=== PATIENT | female | born 1940 | race Caucasian/White ===

== ENCOUNTER 2017-04-24 09:05 | Outpatient (RCR) | payer MEDICARE | END 2017-04-24 13:01 | disposition home or self-care (01) | LOC: CR 09:05 | PROVIDERS: ATTEND Internal Medicine Cardiovascular Disease | DX: Z48.812 Encounter for surgical aftercare following surgery on the circulatory system (principal); Z95.5 Presence of coronary angioplasty implant and graft | CPT/HCPCS: 93798 ==

== ENCOUNTER → 2019-01-03 | Outpatient (CLI) | payer MEDICARE ==
--- NOTE | 2019-01-03 10:24 | Diagnostic Imaging Report ---
INDICATION: Chronic pain FINDINGS: There is severe glenohumeral arthritic joint space narrowing with [id number] and joint space obliteration inferiorly where there is articular sclerosis, subcortical cyst and osteophytosis of the proximal humerus. There is mild inferior subluxation without dislocation of the humeral head. The AC joint unremarkable. IMPRESSION: Severe arthritic joint space narrowing with [id number] sclerosis, cyst and osteophytosis with mild caudal subluxation. Dictated by: Dictated on workstation # [id number]
== END ==
LOC: RAD FS 09:59
PROVIDERS: ATTEND Nurse Practitioner
DX: S43.031A Inferior subluxation of right humerus, initial encounter (principal); M25.711 Osteophyte, right shoulder; M85.611 Other cyst of bone, right shoulder; M89.9 Disorder of bone, unspecified; M19.011 Primary osteoarthritis, right shoulder
CPT/HCPCS: 73030

== ENCOUNTER 2019-11-01 16:38 | Emergency (ER) | payer MEDICARE ==
[~2019-11-01] VITALS: Ht 157.4 cm; Wt 74.8 kg
[2019-11-01 17:16] LABS: BASOPHILS % (AUTO) 0 % (0-10); EOSINOPHILS # (AUTO) 0.1 10^3/uL (0.0-0.3); EOSINOPHILS % (AUTO) 1 % (0-10); HEMATOCRIT 44 % (35-52); HEMOGLOBIN 14.7 G/DL (11.5-16.0); LYMPHOCYTES # (AUTO) 1.1 X 10^3 (1.0-4.0); LYMPHOCYTES % (AUTO) 12 % (12-44); MEAN CORPUSCULAR HEMOGLOBIN 29 PG (25-34); MEAN CORPUSCULAR HGB CONC 34 G/DL (32-36); MEAN CORPUSCULAR VOLUME 85 FL (80-99); MEAN PLATELET VOLUME 9.7 FL (7.4-10.4); MONOCYTES # (AUTO) 0.4 X 10^3 (0.0-1.0); MONOCYTES % (AUTO) 4 % (0-12); NEUTROPHILS # (AUTO) 7.5 X 10^3 (1.8-7.8); NEUTROPHILS % (AUTO) 83 % (42-75); PLATELET COUNT 335 10^3/uL (130-400); RED CELL DISTRIBUTION WIDTH 14.9 % (10.0-14.5); WHITE BLOOD COUNT 9.1 10^3/uL (4.3-11.0)
[2019-11-01 17:22] LABS: BILIRUBIN,URINE NEGATIVE (NEGATIVE); CLARITY,URINE CLEAR; COLOR,URINE YELLOW; GLUCOSE, URINE (UA) NEGATIVE (NEGATIVE); KETONES,URINE NEGATIVE (NEGATIVE); LEUKOCYTE ESTERASE ,URINE TRACE (NEGATIVE); NITRITE,URINE NEGATIVE (NEGATIVE); PH,URINE 7.5 (5-9); PROTEIN,URINE NEGATIVE (NEGATIVE)
[2019-11-01 17:27] LABS: INR 1.8 (0.8-1.4); PROTHROMBIN TIME PATIENT 21.4 SEC (12.2-14.7)
[2019-11-01 17:35] LABS: ALANINE AMINOTRANSFERASE 15 U/L (0-55); ALBUMIN 4.5 GM/DL (3.2-4.5); ALKALINE PHOSPHATASE 148 U/L (40-136); BILIRUBIN,TOTAL 0.8 MG/DL (0.1-1.0); BUN/CREATININE RATIO 16; CALCIUM 10.2 MG/DL (8.5-10.1); CARBON DIOXIDE 23 MMOL/L (21-32); CHLORIDE 104 MMOL/L (98-107); CREATININE SERUM 0.68 MG/DL (0.60-1.30); GFR ESTIMATED > 60; GLUCOSE 132 MG/DL (70-105); MAGNESIUM 1.9 MG/DL (1.6-2.4); POTASSIUM 3.9 MMOL/L (3.6-5.0); SODIUM 140 MMOL/L (135-145); TOTAL PROTEIN 8.3 GM/DL (6.4-8.2)
[2019-11-01 17:58] LABS: BACTERIA,URINE TRACE /HPF
--- NOTE | 2019-11-01 18:10 | Diagnostic Imaging Report ---
PROCEDURE: CT head without contrast. TECHNIQUE: Multiple contiguous axial images were obtained through the brain without the use of intravenous contrast. Auto Exposure Controls were utilized during the CT exam to meet ALARA standards for radiation dose reduction. INDICATION: Dizziness and hypertension. COMPARISON: There is no previous study for comparison. FINDINGS: There is extensive low density throughout the deep white matter of both cerebral hemispheres. There is more focal low density involving the anterior right temporal lobe with volume loss, indicating chronic encephalomalacia. Small lucencies are seen within the right basal ganglia which may represent nonacute lacunar infarcts. There is no evidence of hemorrhage. No abnormal mass effect or shift of midline structures is identified. IMPRESSION: Extensive low density within the cerebral hemispheres bilaterally with atrophy and presumed encephalomalacia in the right temporal lobe. These findings may all be chronic, however MRI has greater sensitivity for infarct in the acute setting. Dictated by: Dictated on workstation # [id number]
--- NOTE | 2019-11-01 18:30 | ED General ---
General Chief Complaint: Dizziness/Syncope Stated Complaint: DIZZY,NAUSEA Nursing Triage Note: patient states earlier today she was bent over, complaint of dizziness and states room was spinning. patient verbalized [facility], and was told BP eleveated and her Pace maker wasnt working. patient states the back of her head is hurting. denies falling. Nursing Sepsis Screen: No Definite Risk Source of Information: Patient, Family Exam Limitations: No Limitations (AYANA CEDENO MD) History of Present Illness Date Seen by Provider: Nov 01, 2019 Time Seen by Provider: 16:55 Initial Comments This 79-year-old woman presents to the emergency room with primary complaints of nausea, dizziness when looking down, and headache. She was feeling lightheaded and dizzy starting around 10:00 this morning. She presented to the clinic were blood pressure was checked and that triggered headache. She is able to ambulate without difficulty. She has a history of atrial fibrillation and is anticoagulated on warfarin. She also has history of coronary artery disease with stents and peripheral vascular disease including carotid artery disease status post stenting. Patient states her headache feels similar to when she had a stroke. No focal deficits were identified on exam. (AYANA CEDENO MD) Allergies and Home Medications Allergies Coded Allergies: Penicillins (Unverified Allergy, Unknown, 11/01/19) Patient Home Medication List Home Medication List Reviewed: Yes (AYANA CEDENO MD) Review of Systems Review of Systems Constitutional: no symptoms reported EENTM: no symptoms reported Respiratory: no symptoms reported Cardiovascular: see HPI Gastrointestinal: see HPI Genitourinary: no symptoms reported : No Musculoskeletal: no symptoms reported Skin: no symptoms reported Psychiatric/Neurological: See HPI Hematologic/Lymphatic: No Symptoms Reported Immunological/Allergic: no symptoms reported (AYANA CEDENO MD) Past Kraangf-Wlwyic-Zptzoa Hx Patient Social History Alcohol Use: Denies Use Recreational Drug Use: No 2nd Hand Smoke Exposure: No Recent Foreign Travel: No Contact w/Someone Who Travel: No Recent Infectious Disease Expo: No Recent Hopitalizations: No (AYANA CEDENO MD) Seasonal Allergies Seasonal Allergies: No (AYANA CEDENO MD) Past Medical History Surgeries: Yes Coronary Stent, Pacemaker, Vascular Surgery (carotid stenting) Respiratory: No Cardiac: Yes Atrial Fibrillation, Coronary Artery Disease Neurological: Yes Stroke Genitourinary: No Gastrointestinal: No Musculoskeletal: No Endocrine: No HEENT: No Cancer: No Psychosocial: No (AYANA CEDENO MD) Physical Exam Vital Signs Vital Signs - First Documented 11/01/19 16:50 Temp 36.4 Pulse 104 Resp 20 B/P (MAP) 176/89 (118) Pulse Ox 93 O2 Delivery Room Air (AVA SHIELDS) Vital Signs Capillary Refill : Less Than 3 Seconds (AYANA CEDENO MD) Height, Weight, BMI Height: '" Weight: lbs. oz. kg; 30.00 BMI Method: General Appearance: No Apparent Distress, WD/WN HEENT: PERRL/EOMI, Normal ENT Inspection Neck: Normal Inspection Respiratory: Lungs Clear, Normal Breath Sounds, No Accessory Muscle Use, No Respiratory Distress Cardiovascular: No Edema, No Murmur, Irregularly Irregular, Tachycardia Gastrointestinal: Normal Bowel Sounds, Non Tender, Soft Extremity: Normal Inspection, Non Tender, No Pedal Edema Neurologic/Psychiatric: Alert, Oriented x3, No Motor/Sensory Deficits, Normal Mood/Affect, youth director II-XII Norm as Tested, Other (normal finger to nose, normal ambulation) Skin: Normal Color, Warm/Dry (AYANA CEDENO MD) Progress/Results/Core Measures Suspected Sepsis Recent Fever Within 48 Hours: No Infection Criteria Present: None New/Unexplained Altered Menta: No Sepsis Screen: No Definite Risk SIRS Temperature: Pulse: 104 Respiratory Rate: 20 Blood Pressure 176 /89 Mean: 118 (AYANA CEDENO MD) Results/Orders Lab Results Laboratory Tests Test 11/01/19 17:05 11/01/19 17:18 Range/Units White Blood Count 9.1 4.3-11.0 10^3/uL Red Blood Count 5.13 4.35-5.85 10^6/uL Hemoglobin 14.7 11.5-16.0 G/DL Hematocrit 44 35-52 % Mean Corpuscular Volume 85 80-99 FL Mean Corpuscular Hemoglobin 29 25-34 PG Mean Corpuscular Hemoglobin Concent 34 32-36 G/DL Red Cell Distribution Width 14.9 H 10.0-14.5 % Platelet Count 335 130-400 10^3/uL Mean Platelet Volume 9.7 7.4-10.4 FL Neutrophils (%) (Auto) 83 H 42-75 % Lymphocytes (%) (Auto) 12 12-44 % Monocytes (%) (Auto) 4 0-12 % Eosinophils (%) (Auto) 1 0-10 % Basophils (%) (Auto) 0 0-10 % Neutrophils # (Auto) 7.5 1.8-7.8 X 10^3 Lymphocytes # (Auto) 1.1 1.0-4.0 X 10^3 Monocytes # (Auto) 0.4 0.0-1.0 X 10^3 Eosinophils # (Auto) 0.1 0.0-0.3 10^3/uL Basophils # (Auto) 0.0 0.0-0.1 10^3/uL Prothrombin Time 21.4 H 12.2-14.7 SEC INR Comment 1.8 H 0.8-1.4 Activated Partial Thromboplast Time 31 24-35 SEC Sodium Level 140 135-145 MMOL/L Potassium Level 3.9 3.6-5.0 MMOL/L Chloride Level 104 98-107 MMOL/L Carbon Dioxide Level 23 21-32 MMOL/L Anion Gap 13 5-14 MMOL/L Blood Urea Nitrogen 11 7-18 MG/DL Creatinine 0.68 0.60-1.30 MG/DL Estimat Glomerular Filtration Rate > 60 BUN/Creatinine Ratio 16 Glucose Level 132 H 70-105 MG/DL Calcium Level 10.2 H 8.5-10.1 MG/DL Corrected Calcium 9.8 8.5-10.1 MG/DL Magnesium Level 1.9 1.6-2.4 MG/DL Total Bilirubin 0.8 0.1-1.0 MG/DL Aspartate Amino Transf (AST/SGOT) 18 5-34 U/L Alanine Aminotransferase (ALT/SGPT) 15 0-55 U/L Alkaline Phosphatase 148 H 40-136 U/L Troponin I < 0.028 <0.028 NG/ML Total Protein 8.3 H 6.4-8.2 GM/DL Albumin 4.5 3.2-4.5 GM/DL TSH [place] Testing 0.50 0.35-4.94 UIU/ML Urine Color YELLOW Urine Clarity CLEAR Urine pH 7.5 5-9 Urine Specific Sheldon 1.015 L 1.016-1.022 Urine Protein NEGATIVE NEGATIVE Urine Glucose (UA) NEGATIVE NEGATIVE Urine Ketones NEGATIVE NEGATIVE Urine Nitrite NEGATIVE NEGATIVE Urine Bilirubin NEGATIVE NEGATIVE Urine Urobilinogen 1.0 < = 1.0 MG/DL Urine Leukocyte Esterase TRACE H NEGATIVE Urine RBC (Auto) 2+ H NEGATIVE Urine RBC 5-10 H /HPF Urine WBC 2-5 /HPF Urine Crystals NONE /LPF Urine Bacteria TRACE /HPF Urine Casts NONE /LPF Urine Mucus NEGATIVE /LPF Urine Culture Indicated NO (AVA SHIELDS) My Orders Orders - AVA SHIELDS Hydralazine Injection (Apresoline Inject (11/01/19 18:45) Fentanyl Injection (Sublimaze Injection (11/01/19 18:45) Lisinopril Tablet (Zestril Tablet) (11/01/19 18:45) Ed Iv/Invasive Line Start (11/01/19 18:51) Ns Iv 500 Ml (Sodium Chloride 0.9%) (11/01/19 18:51) Ct Angio Head/Neck (11/01/19 18:51) Iohexol Injection (Omnipaque 350 Mg/Ml 1 (11/01/19 19:00) Received Contrast (Hold Metformin- Contr (11/01/19 19:00) Ns (Ivpb) (Sodium Chloride 0.9% Ivpb Bag (11/01/19 19:00) (AVA SHIELDS) Medications Given in ED Current Medications Medications Dose Ordered Sig/Natalie Route Start Time Stop Time Status Last Admin Dose Admin Fentanyl Citrate 50 mcg ONCE ONCE IVP 11/01/19 18:45 11/01/19 18:46 DC 11/01/19 19:06 50 MCG Hydralazine HCl 10 mg ONCE ONCE IV 11/01/19 18:45 11/01/19 18:46 DC 11/01/19 19:06 10 MG Iohexol 75 ml ONCE ONCE IV 11/01/19 19:00 11/01/19 19:01 DC 11/01/19 19:21 75 ML Lisinopril 20 mg ONCE ONCE PO 11/01/19 18:45 11/01/19 18:46 DC 11/01/19 19:57 20 MG Sodium Chloride 100 ml ONCE ONCE IV 11/01/19 19:00 11/01/19 19:01 DC 11/01/19 19:21 80 ML Sodium Chloride 500 ml @ 0 mls/hr Q0M ONCE IV 11/01/19 18:51 11/01/19 18:52 DC 11/01/19 19:06 0 MLS/HR (AVA SHIELDS) Vital Signs/I&O 11/01/19 11/01/19 11/01/19 11/01/19 16:50 19:06 19:44 20:13 Temp 36.4 36.4 Pulse 104 97 90 Resp 20 22 10 B/P (MAP) 176/89 (118) 155/100 (118) 150/89 (109) Pulse Ox 93 96 95 O2 Delivery Room Air Room Air Room Air (AVA SHIELDS) Vital Signs/I&O Capillary Refill : Less Than 3 Seconds (AYANA CEDENO MD) Blood Pressure Mean: 118 Progress Note : Time: 18:39 Progress Note Given intense headache and the presence of anticoagulation, CT of the head was felt necessary. CT without contrast was obtained. There appeared to be changes consistent with encephalomalacia which may be secondary to her old stroke. Workup was otherwise fairly unremarkable. However, blood pressure remained quite elevated. This was discussed with the patient and Dr. Shields. Care is being transitioned to Dr. hSields at this time. He will work on blood pressure management and headache management. I suspect the headache and hypertension are exacerbating each other. (AYANA CEDENO MD) Progress Note #1: Time: 18:40 Progress Note Assumed care of the patient from shift change. She has a headache, neck tension and elevated hypertension around 210/100. After initial CT showed only chronic encephalomalacia we decided to address her pain with some pain medicines, fentanyl and some hydralazine for short acting antihypertensive relief to see if this would help her symptoms. She further reveals that she had a carotid ul trasound recently a few weeks ago and was given a call saying that there were some concerns about poor patency through one of her carotids. For this reason and because of her hypertension and headache we are going to get a CT angiogram of her head and neck. For now her blood pressure goal will be a reduction of about 20% or around 180 systolic. She follows with a flange machine operator office out of [place] and will need to follow-up with them for continued blood pressure management as well as her concerns with the generator in her pacemaker being at her last pacemaker check. Progress Note #2: Time: 21:07 Progress Note The patient's blood pressure did significantly improve down to 150 systolic range. She does endorse improvement in her headache. Recurrent encourage her to continue using Tylenol and ibuprofen as necessary and she has a follow-up with her flange machine operator on Monday, 3 days from now. We'll encourage her to adjust and address her blood pressure medicines but them. (AVA SHIELDS) ECG Initial ECG Impression Date: Nov 01, 2019 Initial ECG Impression Time: 17:16 Initial ECG Rate: 78 Initial ECG Rhythm: A Fib/Flutter Initial ECG Impression: Atrial Fibrillation Comment Atrial fibrillation, rate controlled. No ST elevation. No ischemic ST elevation or depression. (AYANA CEDENO MD) Diagnostic Imaging Diagonstic Imaging: CT Plain Films/CT/US/NM/MRI: head Comments CT head viewed by me and report reviewed. See report below: NAME: KEISHA ESPAÑA MED REC#: [id number] PT STATUS: REG ER : 1940 PHYSICIAN: AYANA CEDENO MD ADMIT DATE: 11/01/19/ER Draft Date of Exam:11/01/19 CT HEAD WO PROCEDURE: CT head without contrast. TECHNIQUE: Multiple contiguous axial images were obtained through the brain without the use of intravenous contrast. Auto Exposure Controls were utilized during the CT exam to meet ALARA standards for radiation dose reduction. INDICATION: Dizziness and hypertension. COMPARISON: There is no previous study for comparison. FINDINGS: There is extensive low density throughout the deep white matter of both cerebral hemispheres. There is more focal low density involving the anterior right temporal lobe with volume loss, indicating chronic encephalomalacia. Small lucencies are seen within the right basal ganglia which may represent nonacute lacunar infarcts. There is no evidence of hemorrhage. No abnormal mass effect or shift of midline structures is identified. IMPRESSION: Extensive low density within the cerebral hemispheres bilaterally with atrophy and presumed encephalomalacia in the right temporal lobe. These findings may all be chronic, however MRI has greater sensitivity for infarct in the acute setting. Dictated on workstation # [id number] Dict: 11/01/19 1805 Trans: 11/01/191809 [id number] Interpreted by: LUZ MARINA SENIOR MD (AYANA CEDENO MD) Diagonstic Imaging: CT (Angiogram) Plain Films/CT/US/NM/MRI: head (And neck) Comments NAME: KEISHA ESPAÑA [facility] REC#: [id number] PT STATUS: REG ER : 1940 PHYSICIAN: AVA SHIELDS MD ADMIT DATE: 11/01/19/ER Signed Date of Exam:11/01/19 CT ANGIO HEAD/NECK PROCEDURE: CT angiography of the head and CT angiography of the neck with and without contrast. TECHNIQUE: Contiguous noncontrast images were obtained from the skull base through the vertex. After intravenous contrast administration, helical CT angiography of the neck was performed. Source data was reformatted into 3D MIP projections. Delayed post contrast acquisition was also obtained. Auto Exposure Controls were utilized during the CT exam to meet ALARA standards for radiation dose reduction. INDICATION: Acute onset of dizziness and vertigo in patient with hypertension. FINDINGS: CTA neck: There is a normal three-vessel configuration to the aortic arch with moderate atherosclerotic calcification at the origins of left common carotid artery and left subclavian artery. There is tortuosity of the right common carotid artery. Moderate atherosclerotic calcification seen throughout the carotid arteries. This is most pronounced at the level of the bifurcations with previous stent in the right internal carotid artery. There is significant tortuosity of the left internal carotid artery. No definite filling defect, occlusion or intimal abnormality is identified. Both vertebral arteries are patent with marked tortuosity at the origin of the left vertebral artery. Basilar artery has a normal appearance. CTA head: Anterior, middle and posterior cerebral arteries are patent, bilaterally. No filling defect is identified. There is no evidence of aneurysm or vascular malformation. IMPRESSION: Extensive atherosclerotic calcification within the carotid arteries of the neck. Previous right carotid stent is noted and there is no evidence of high-grade stenosis or occlusion. No intraluminal filling defect is seen within the cerebral arteries. Dictated by: Dictated on workstation # [id number] Dict: 11/01/191933 Trans: 11/01/192024 [id number] Interpreted by: LUZ MARINA SENIOR MD Electronically signed by: LUZ MARINA SENIOR MD 11/01/192024 Reviewed: Reviewed by Me (AVA SHIELDS) Departure Impression Primary Impression: Acute headache Qualified Codes: R51 - Headache Additional Impressions: Dizziness Accelerated hypertension Disposition: 01 HOME, SELF-CARE Condition: Stable Departure-Patient Inst. Decision time for Depature: 21:08 (AVA SHIELDS) Referrals: LOUIS SAINZ MD (PCP/Family) Primary Care Physician Patient Instructions: High Blood Pressure in Adults, Headache, Adult, High Blood Pressure Emergencies Add. Discharge Instructions: Please plan to follow up with your flange machine operator at your scheduled appointment on Monday. Make an appointment to follow-up with your primary care doctor as well and discuss your blood pressure medications and how they might relate to your headaches. Tylenol 1000 g every 8 hours as needed for pain. Ibuprofen 600 mg every 8 hours as needed for pain. Warm compresses to the neck or cool cloth to the forehead. All discharge instructions reviewed with patient and/or family. Voiced understanding. Copy Copies To 1: LOUIS SAINZ MD, JOSHUA T MD Nov 01, 2019 18:30 AVA SHIELDS Nov 01, 2019 18:57
[2019-11-01] MEDS ORDERED: hydrALAZINE (APESOLINE) 20 MG/ML VIAL IV ONE (18:45)
[2019-11-01] MEDS ORDERED: fentaNYL INJECTION 100 MCG/2 ML AMP IVP ONE (18:45)
[2019-11-01] MEDS ORDERED: lisINopril 20 MG (PRINIVIL) TABLET PO ONE (18:45)
[2019-11-01] MEDS ORDERED: NS IV 500 ML 500 ML IV ONE (18:51)
[2019-11-01] MEDS ORDERED: NS 100 ML (IVPB) BAG IV ONE (19:00)
[2019-11-01] MEDS ORDERED: HOLD METFORMIN - RECEIVED CONTRAST 20 ML VIAL IV SCH (19:00)
[2019-11-01] MEDS ORDERED: IOHEXOL 350 MG/ML 100 ML (OMNIPAQUE 350) VIAL IV ONE (19:00)
[2019-11-01 19:44] VITALS: BP 155/100
--- NOTE | 2019-11-01 19:44 | Diagnostic Imaging Report ---
PROCEDURE: CT angiography of the head and CT angiography of the neck with and without contrast. TECHNIQUE: Contiguous noncontrast images were obtained from the skull base through the vertex. After intravenous contrast administration, helical CT angiography of the neck was performed. Source data was reformatted into 3D MIP projections. Delayed post contrast acquisition was also obtained. Auto Exposure Controls were utilized during the CT exam to meet ALARA standards for radiation dose reduction. INDICATION: Acute onset of dizziness and vertigo in patient with hypertension. FINDINGS: CTA neck: There is a normal three-vessel configuration to the aortic arch with moderate atherosclerotic calcification at the origins of left common carotid artery and left subclavian artery. There is tortuosity of the right common carotid artery. Moderate atherosclerotic calcification seen throughout the carotid arteries. This is most pronounced at the level of the bifurcations with previous stent in the right internal carotid artery. There is significant tortuosity of the left internal carotid artery. No definite filling defect, occlusion or intimal abnormality is identified. Both vertebral arteries are patent with marked tortuosity at the origin of the left vertebral artery. Basilar artery has a normal appearance. CTA head: Anterior, middle and posterior cerebral arteries are patent, bilaterally. No filling defect is identified. There is no evidence of aneurysm or vascular malformation. IMPRESSION: Extensive atherosclerotic calcification within the carotid arteries of the neck. Previous right carotid stent is noted and there is no evidence of high-grade stenosis or occlusion. No intraluminal filling defect is seen within the cerebral arteries. Dictated by: Dictated on workstation # [id number]
[2019-11-01 20:13] VITALS: BP 150/89
[2019-11-01 21:10] VITALS: BP 142/110
== END 2019-11-01 21:10 | disposition home or self-care (01) ==
LOC: EDUNIT# 16:38 → ER 16:40
DX: R51 Headache (principal); R42 Dizziness and giddiness; I10 Essential (primary) hypertension; Z88.0 Allergy status to penicillin; Z95.5 Presence of coronary angioplasty implant and graft; Z86.73 Personal history of transient ischemic attack (TIA), and cerebral infarction without residual deficits
CPT/HCPCS: 36415; 70450; 70496; 70498; 80053; 81000; 83735; 84443; 84484; 85025; 85610; 85730; 93005; 93041

== ENCOUNTER 2019-11-17 02:28 | Inpatient (IN) | payer MEDICARE ==
[~2019-11-17] VITALS: Ht 165 cm; Wt 71.4 kg
[2019-11-17] VITALS (18 sets, daily range): BP systolic 104–169; BP diastolic 31–94
[2019-11-17] MEDS ORDERED: LEVOFLOXACIN 750 MG/150 ML IV 150 ML IV ONE (02:45)
[2019-11-17] MEDS ORDERED: NS IV 1000 ML 2,000 ML IV ONE (02:45)
--- NOTE | 2019-11-17 02:47 | ED Fall/Injury ---
General Stated Complaint: RESP COMPLAINTS, FELL OFF COMMODE Source: patient, EMS, spouse Exam Limitations: no limitations History of Present Illness Date Seen by Provider: Nov 17, 2019 Time Seen by Provider: 02:34 Initial Comments Patient presents to ER by EMS from home with chief complaint that she was on the commode and slid off onto the ground. She denies loss of consciousness or striking her head but her memory of the event and ability to relate a history is difficult. She was unable to get herself up and her was unable to raise herself so they called an ambulance. For the past months she's been having some productive cough progressively worsening shortness of breath. She does not rely on oxygen, smoke or use CPAP. She has no history of COPD. She does not use breathing treatments. She went to her primary care office couple weeks ago and they put her on some pills which she doesn't know what they were. She was given an x-ray flu swab told that she might have a touch of the pneumonia. She has not followed up since. Subjective fevers the past couple days. Allergies and Home Medications Allergies Coded Allergies: Penicillins (Unverified Allergy, Unknown, 11/01/19) Patient Home Medication List Home Medication List Reviewed: Yes Review of Systems Review of Systems Constitutional: No chills, No diaphoresis Eyes: Denies Blindness, Denies Drainage Ears, Nose, Mouth, Throat: denies ear pain, denies ear discharge Respiratory: No cough, No dyspnea on exertion Cardiovascular: No chest pain, No palpitations Gastrointestinal: No abdominal pain, No constipation, No diarrhea, No nausea, No vomiting Genitourinary: No dysuria, No frequency, No incontinence Musculoskeletal: No back pain, No joint pain Skin: No change in color, No rash All Other Systems Reviewed Negative Unless Noted: Yes Past Jfkilpm-Krimoj-Rrwvft Hx Patient Social History Alcohol Use: Denies Use Recreational Drug Use: No Smoking Status: Never a Smoker 2nd Hand Smoke Exposure: No Recent Foreign Travel: No Contact w/Someone Who Travel: No Recent Hopitalizations: No Seasonal Allergies Seasonal Allergies: No Past Medical History Surgeries: Yes Coronary Stent, Pacemaker, Vascular Surgery Respiratory: No Cardiac: Yes Atrial Fibrillation, Coronary Artery Disease Neurological: Yes Stroke Genitourinary: No Gastrointestinal: No Musculoskeletal: No Endocrine: No HEENT: No Cancer: No Psychosocial: No Physical Exam Vital Signs Vital Signs - First Documented 11/17/19 02:32 Temp 37.3 Pulse 106 Resp 22 B/P (MAP) 152/84 (106) Pulse Ox 96 O2 Delivery Nasal Cannula O2 Flow Rate 2.00 FiO2 96 Capillary Refill : Height, Weight, BMI Height: '" Weight: lbs. oz. kg; 30.00 BMI Method: General Appearance: WD/WN, moderate distress HEENT: PERRL/EOMI, normal ENT inspection Neck: non-tender, full range of motion, supple, normal inspection Cardiovascular: normal peripheral pulses, tachycardia (100-110), irregularly irregular Respiratory: no accessory muscle use, respiratory distress (mild with oxygen saturation of 92% on room air at rest), crackles (bilateral bases), rhonchi ( mild), wheezing (few bilateral) Peripheral Pulses: 1+ Dorsalis Pedis (R), 1+ Left Dors-Pedis (L), 1+ Radial Pulses (R), 1+ Radial Pulses (L) Gastrointestinal: normal bowel sounds, non tender, soft Neurologic/Psychiatric: alert, normal mood/affect, oriented x 3 Skin: normal color, warm/dry Steele Coma Score Best Eye Response: (4) Open Spontaneously Best Verbal Response: (5) Oriented Best Motor Response: (6) Obeys Commands Octavio Total: 15 Progress/Results/Core Measures Results/Orders Lab Results Laboratory Tests Test 11/17/19 02:41 11/17/19 02:50 11/17/19 03:05 11/17/19 03:25 Range/Units White Blood Count 6.7 4.3-11.0 10^3/uL Red Blood Count 4.60 4.35-5.85 10^6/uL Hemoglobin 13.2 11.5-16.0 G/DL Hematocrit 40 35-52 % Mean Corpuscular Volume 87 80-99 FL Mean Corpuscular Hemoglobin 29 25-34 PG Mean Corpuscular Hemoglobin Concent 33 32-36 G/DL Red Cell Distribution Width 14.9 H 10.0-14.5 % Platelet Count 196 130-400 10^3/uL Mean Platelet Volume 10.1 7.4-10.4 FL Neutrophils (%) (Auto) 78 H 42-75 % Lymphocytes (%) (Auto) 9 L 12-44 % Monocytes (%) (Auto) 12 0-12 % Eosinophils (%) (Auto) 0 0-10 % Basophils (%) (Auto) 0 0-10 % Neutrophils # (Auto) 5.2 1.8-7.8 X 10^3 Lymphocytes # (Auto) 0.6 L 1.0-4.0 X 10^3 Monocytes # (Auto) 0.8 0.0-1.0 X 10^3 Eosinophils # (Auto) 0.0 0.0-0.3 10^3/uL Basophils # (Auto) 0.0 0.0-0.1 10^3/uL Prothrombin Time 23.6 H 12.2-14.7 SEC INR Comment 2.0 H 0.8-1.4 Activated Partial Thromboplast Time 37 H 24-35 SEC Sodium Level 137 135-145 MMOL/L Potassium Level 4.4 3.6-5.0 MMOL/L Chloride Level 104 98-107 MMOL/L Carbon Dioxide Level 19 L 21-32 MMOL/L Anion Gap 14 5-14 MMOL/L Blood Urea Nitrogen 11 7-18 MG/DL Creatinine 0.72 0.60-1.30 MG/DL Estimat Glomerular Filtration Rate > 60 BUN/Creatinine Ratio 15 Glucose Level 140 H 70-105 MG/DL Calcium Level 9.3 8.5-10.1 MG/DL Corrected Calcium 9.3 8.5-10.1 MG/DL Total Bilirubin 0.7 0.1-1.0 MG/DL Aspartate Amino Transf (AST/SGOT) 22 5-34 U/L Alanine Aminotransferase (ALT/SGPT) 10 0-55 U/L Alkaline Phosphatase 128 40-136 U/L Troponin I 0.071 H <0.028 NG/ML Total Protein 7.5 6.4-8.2 GM/DL Albumin 4.0 3.2-4.5 GM/DL Lactic Acid Level 1.68 0.50-2.00 MMOL/L Urine Color YELLOW Urine Clarity CLEAR Urine pH 6.0 5-9 Urine Specific [place] >=1.030 1.016-1.022 Urine Protein 1+ H NEGATIVE Urine Glucose (UA) NEGATIVE NEGATIVE Urine Ketones 1+ H NEGATIVE Urine Nitrite NEGATIVE NEGATIVE Urine Bilirubin NEGATIVE NEGATIVE Urine Urobilinogen 0.2 < = 1.0 MG/DL Urine Leukocyte Esterase NEGATIVE NEGATIVE Urine RBC (Auto) 3+ H NEGATIVE Urine RBC 25-50 H /HPF Urine WBC 0-2 /HPF Urine Squamous Epithelial Cells 5-10 /HPF Urine Crystals NONE /LPF Urine Bacteria TRACE /HPF Urine Casts NONE /LPF Urine Mucus MODERATE H /LPF Urine Culture Indicated CULTURE PENDING Blood Gas Puncture Site RIGHT RADIAL Blood Gas Patient Temperature 37.3 Arterial Blood pH 7.38 7.37-7.43 Arterial Blood Partial Pressure CO2 37 35-45 MMHG Arterial Blood Partial Pressure O2 86 79-93 MMHG Arterial Blood HCO3 22 L 23-27 MMOL/L Arterial Blood Total CO2 22.7 21.0-31.0 MMOL/L Arterial Blood Oxygen Saturation 96 94-100 % Arterial Blood Base Excess -2.6 L -2.5-2.5 MMOL/L Danny Test YES-POS Blood Gas Ventilator Setting NO Blood Gas Inspired Oxygen 2L Micro Results Microbiology 11/17/19 Influenza Types A,B Antigen (NANY) - Final, Complete My Orders Orders - AVA AVILA Cbc With Automated Diff (11/17/19 02:38) Comprehensive Metabolic Panel (11/17/19 02:38) Blood Culture (11/17/19 02:38) Sputum Culture (11/17/19 02:38) Urinalysis (11/17/19 02:38) Urine Culture (11/17/19 02:38) Protime With Inr (11/17/19 02:38) Partial Thromboplastin Time (11/17/19 02:38) Chest 1 View, Ap/Pa Only (11/17/19 02:38) Ed Iv/Invasive Line Start (11/17/19 02:38) Ed Iv/Invasive Line Start (11/17/19 02:38) Ekg Tracing (11/17/19 02:38) Troponin I (11/17/19 02:38) Vital Signs Adult Sepsis Patie Q15M (11/17/19 02:38) O2 (11/17/19 02:38) Remove Rings In Anticipation O (11/17/19 02:38) Lactic Acid Analyzer (11/17/19 02:38) Influenza A And B Antigens (11/17/19 02:38) Ns Iv 1000 Ml (Sodium Chloride 0.9%) (11/17/19 02:45) Levofloxacin 750 Mg/150 Ml Iv (Levaquin (11/17/19 02:45) Ct Head/Cervical Spine Wo (11/17/19 02:45) Albuterol/Ipra Inhalation Soln (Duoneb I (11/17/19 03:00) Svn Small Volume Nebulizer (11/17/19 02:48) Ondansetron Injection (Zofran Injectio (11/17/19 03:15) Arterial Blood Gas (11/17/19 03:33) Promethazine Injection (Phenergan Injec (11/17/19 04:15) Arterial Blood Draw (11/17/19 ) Medications Given in ED Current Medications Medications Dose Ordered Sig/Natalie Route Start Time Stop Time Status Last Admin Dose Admin Albuterol/ Ipratropium 3 ml ONCE ONCE INH 11/17/19 03:00 11/17/19 03:01 DC 11/17/19 03:02 3 ML Levofloxacin/ Dextrose 150 ml @ 100 mls/hr ONCE ONCE IV 11/17/19 02:45 11/17/19 04:14 DC 11/17/19 03:22 100 MLS/HR Ondansetron HCl 8 mg ONCE ONCE IVP 11/17/19 03:15 11/17/19 03:16 DC 11/17/19 03:22 8 MG Promethazine HCl 25 mg ONCE ONCE IVP 11/17/19 04:15 11/17/19 04:16 DC 11/17/19 04:22 25 MG Sodium Chloride 2,000 ml @ 2,000 mls/hr ONCE ONCE IV 11/17/19 02:45 11/17/19 03:44 DC 11/17/19 02:53 2,000 MLS/HR Vital Signs/I&O 11/17/19 11/17/19 11/17/19 11/17/19 02:32 02:32 03:08 03:11 Temp 37.3 Pulse 106 Resp 22 B/P (MAP) 152/84 (106) Pulse Ox 96 96 96 O2 Delivery Nasal Cannula Nasal Cannula Nasal Cannula O2 Flow Rate 2.00 2.00 2.00 FiO2 96 Progress Progress Note : Time: 02:53 Progress Note Tachycardia with history of pneumonia. Septic workup to include 2 L normal saline. Her stated history of allergy to penicillin that she swells up like a toad. Plan Levaquin instead and lives at home with no history of COPD or asthma. She has some slight wheezing so we'll give her a DuoNeb and get an ABG. 2 L by nasal cannula oxygen. . Patient denies hitting her head or loss of consciousness she is on warfarin and it would be prudent to obtain a CT scan of her head and neck to rule out bleed from ruptured bridging veins etc. Initial ECG Impression Date: Nov 17, 2019 Initial ECG Impression Time: 02:49 Initial ECG Rate: 105 Initial ECG Rhythm: A Fib/Flutter Initial ECG Intervals: Normal Initial ECG Impression: Atrial Fibrillation Comment Atrial fibrillation, tachycardia with no clinically relevant ST elevation or depression. Diagnostic Imaging Diagonstic Imaging: Xray Plain Films/CT/US/NM/MRI: chest (1v) Comments Interstitial markings throughout. Reviewed: Reviewed by Me Focused Exam Sepsis Stage: Sepsis Possible Source: Pulmonary Lactate Level 11/17/19 02:50: Lactic Acid Level 1.68 Time of Focused Exam: 04:54 Respiratory: No Accessory Muscle Use, Crackles, Respiratory Distress (mild, tachycardia with oxygen sats in the mid to upper 90s on 2 L by nasal cannula.) Cardiovascular: Regular Rate, Rhythm, No Edema, Normal Peripheral Pulses Capillary Refill: Less Than 3 Seconds Peripheral Pulses: 2+ Radial Pulses (R), 2+ Radial Pulses (L) Skin: normal color, warm/dry Lactic Acid Level Laboratory Tests Test 11/17/19 02:50 Lactic Acid Level 1.68 MMOL/L (0.50-2.00) Within 3hrs of presentation: Admin fluids, Admin ABX, Blood cultures prior to ABX's, Focus exam, Lactate level Departure Communication (Admissions) Time/Spoke to Admitting Phy: 04:45 Discussed the case with Dr. Mclean and she agrees to admit the patient to the ICU. Impression Primary Impression: Influenza Additional Impressions: Hypoxia Nausea and vomiting Qualified Codes: R11.2 - Nausea with vomiting, unspecified Disposition: ADMITTED INPATIENT Condition: Stable Admissions Decision to Admit Reason: Admit from ER (General) Decision to Admit/Date: Nov 17, 2019 Time/Decision to Admit Time: 04:30 Departure-Patient Inst. Referrals: SELF,LOUIS CASTELLON (PCP/Family) Primary Care Physician AVA AVILA Nov 17, 2019 02:47
[2019-11-17 02:51] LABS: BASOPHILS % (AUTO) 0 % (0-10); EOSINOPHILS % (AUTO) 0 % (0-10); HEMATOCRIT 40 % (35-52); HEMOGLOBIN 13.2 G/DL (11.5-16.0); LYMPHOCYTES # (AUTO) 0.6 X 10^3 (1.0-4.0); LYMPHOCYTES % (AUTO) 9 % (12-44); MEAN CORPUSCULAR HEMOGLOBIN 29 PG (25-34); MEAN CORPUSCULAR HGB CONC 33 G/DL (32-36); MEAN CORPUSCULAR VOLUME 87 FL (80-99); MEAN PLATELET VOLUME 10.1 FL (7.4-10.4); MONOCYTES # (AUTO) 0.8 X 10^3 (0.0-1.0); MONOCYTES % (AUTO) 12 % (0-12); NEUTROPHILS # (AUTO) 5.2 X 10^3 (1.8-7.8); NEUTROPHILS % (AUTO) 78 % (42-75); PLATELET COUNT 196 10^3/uL (130-400); RED CELL DISTRIBUTION WIDTH 14.9 % (10.0-14.5); WHITE BLOOD COUNT 6.7 10^3/uL (4.3-11.0)
[2019-11-17] MEDS ORDERED: RT-ALBUTEROL/IPRATROPIUM 3 ML (DUONEB) VIAL INH ONE (03:00)
[2019-11-17 03:03] LABS: PROTHROMBIN TIME PATIENT 23.6 SEC (12.2-14.7)
[2019-11-17 03:08] LABS: ALANINE AMINOTRANSFERASE 10 U/L (0-55); ALKALINE PHOSPHATASE 128 U/L (40-136); BILIRUBIN,TOTAL 0.7 MG/DL (0.1-1.0); BUN/CREATININE RATIO 15; CALCIUM 9.3 MG/DL (8.5-10.1); CARBON DIOXIDE 19 MMOL/L (21-32); CHLORIDE 104 MMOL/L (98-107); CREATININE SERUM 0.72 MG/DL (0.60-1.30); GFR ESTIMATED > 60; GLUCOSE 140 MG/DL (70-105); POTASSIUM 4.4 MMOL/L (3.6-5.0); SODIUM 137 MMOL/L (135-145); TOTAL PROTEIN 7.5 GM/DL (6.4-8.2)
[2019-11-17 03:12] LABS: BILIRUBIN,URINE NEGATIVE (NEGATIVE); CLARITY,URINE CLEAR; COLOR,URINE YELLOW; GLUCOSE, URINE (UA) NEGATIVE (NEGATIVE); KETONES,URINE 1+ (NEGATIVE); LEUKOCYTE ESTERASE ,URINE NEGATIVE (NEGATIVE); NITRITE,URINE NEGATIVE (NEGATIVE); PROTEIN,URINE 1+ (NEGATIVE)
[2019-11-17] MEDS ORDERED: ONDANSETRON 4 MG/2 ML (SDV) Z0FRAN IVP ONE (03:15)
[2019-11-17 03:19] LABS: BACTERIA,URINE TRACE /HPF; RBC,URINE 25-50 /HPF; WBC,URINE 0-2 /HPF
[2019-11-17 03:41] LABS: ABG BASE EXCESS -2.6 MMOL/L (-2.5-2.5); ABG OXYGEN SATURATION 96 % (94-100); ABG PCO2 37 MMHG (35-45); ABG PH 7.38 (7.37-7.43); ABG PO2 86 MMHG (79-93); ABG TCO2 22.7 MMOL/L (21.0-31.0)
[2019-11-17 03:48] LABS: ALLENS TEST YES-POS; INSPIRED O2 2L; PATIENT TEMP 37.3; VENTILATOR NO
[2019-11-17] MEDS ORDERED: PROMETHAZINE INJ 25 MG/ML (PHENERGAN) AMP IVP ONE (04:15)
--- NOTE | 2019-11-17 06:00 | NUR ---
PT TRANSPORTED VIA STRETCHER TO ROOM AT THIS TIME. PT VERY SLEEPY AND HARD TO AROUSE. PT ANSWERS ORIENTATION QUESTIONS AND FALLS BACK ASLEEP. OTHER ADMISSION QUESTIONS ASKED WITH MINIMAL RESPONSE. NO RECALL DATA FOUND DURING ADMISSION. WILL ASK QUESTIONS AGAIN WHEN PT IS MORE AWAKE
[2019-11-17] MEDS ORDERED: NS W/KCL 20 MEQ/L 1,000 ML IV ONE (06:10)
[2019-11-17] MEDS ORDERED: PROMETHAZINE INJ 25 MG/ML (PHENERGAN) AMP IV PRN (06:30)
[2019-11-17] MEDS ORDERED: NS W/KCL 20 MEQ/L 1,000 ML IV SCH ×2 (06:30)
[2019-11-17] MEDS ORDERED: IBUPROFEN 800 MG (MOTRIN) TAB PO PRN (06:30)
--- NOTE | 2019-11-17 07:16 | Diagnostic Imaging Report ---
PROCEDURE: CT head and CT cervical spine without contrast. TECHNIQUE: Multiple contiguous axial images were obtained through the brain and cervical spine without the use of intravenous contrast. Sagittal and coronal reformations through the cervical spine were then performed. Auto Exposure Controls were utilized during the CT exam to meet ALARA standards for radiation dose reduction. INDICATION: Fell, head and neck pain CT HEAD: This exam is less than optimal due to some streak and motion artifact. The area of encephalomalacia involving the anterior pole of the right temporal lobe seen on the previous exam of 11/01/2019 is again evident and not significantly changed. The areas of diminished density in the periventricular white matter seen on the prior exam are also again visualized and no different. There is no mass, shift to the midline or hemorrhage. The ventricles are not abnormally dilated and stable in size when compared to the prior exam. The bone windows show no evidence for a fracture or for a destructive lesion. The orbits are symmetrical and within normal limits. There is mild mucosal thickening of ethmoid sinuses. The sinuses are otherwise generally clear. IMPRESSION: There is no evidence for an acute intracranial abnormality. If clinical concern regarding an underlying abnormality persists, then a short-term (24-hour) follow-up CT head exam should be obtained. The patient does have a pacemaker in place and this would preclude further evaluation by MRI. CT cervical spine: There are no prior studies available for comparison. The study is of limited diagnostic value due to motion artifact. The reconstructed parasagittal images show slight exaggeration of the normal lordosis of the cervical spine. There is degenerative disc and bony disease at C5-C6 and C6-C7. There is no high-grade stenosis identified. There is no fracture evident. There is no evidence for retropharyngeal edema. There is a stent in the right internal carotid artery. The thyroid gland is not well visualized due to streak and motion artifact. There are diffuse interstitial densities throughout both lung apices. IMPRESSION: 1. There is no evidence for an acute bony abnormality on this suboptimal exam. 2. There does appear to be interstitial infiltrates involving both upper lobes. A chest exam is pending for further study. Dictated by: Dictated on workstation # [id number]
--- NOTE | 2019-11-17 07:22 | Pulmonary Consultation ---
History of Present Illness History of Present Illness Date Seen by Provider: Nov 17, 2019 Time Seen by Provider: 07:17 Date of Admission History of Present Illness 79yo presented to ED via EMS after she slid off commode onto ground and was not able to get up. No loss of consciousness and did not hit head. CT of head is negative. Pt tested positive for influ A. For the past months she's been having some productive cough progressively worsening shortness of breath. Subjective fevers the past couple days. Allergies and Home Medications Allergies Coded Allergies: Penicillins (Unverified Allergy, Unknown, 11/17/19) Home Medications Acetaminophen 325 Mg Tablet, 650 MG PO Q6H PRN for PAIN-MILD (1-4), (Reported) Atorvastatin Calcium 40 Mg Tablet, 40 MG PO DAILY, (Reported) Calcium Carbonate 600 Mg Tablet, 600 MG PO DAILY, (Reported) Carvedilol 6.25 Mg Tablet, 6.25 MG PO BID, (Reported) Cholecalciferol (Vitamin D3) 2,000 Unit Tablet, 2,000 UNIT PO DAILY, (Reported) Clopidogrel Bisulfate 75 Mg Tablet, 75 MG PO DAILY, (Reported) Cyanocobalamin 100 Mcg Tablet, 1,000 MCG PO DAILY, (Reported) Diltiazem HCl 180 Mg Cap.er.24h, 180 MG PO DAILY, (Reported) Lisinopril 20 Mg Tablet, 20 MG PO DAILY, (Reported) Mirabegron 25 Mg Tab.er.24h, 25 MG PO DAILY, (Reported) Nitroglycerin 0.4 Mg Tab.subl, 0.4 MG SL NEEDED, (Reported) Potassium Chloride 20 Meq Tab.er.prt, 20 MEQ PO DAILY, (Reported) Tramadol HCl 50 Mg Tablet, 50 MG PO Q6H PRN for PAIN-MILD (1-4), (Reported) Warfarin Sodium 1 Mg Tablet, 1 MG PO MON,MON, (Reported) 1MG PO ON MONDAY AND MONDAY Warfarin Sodium 1 Mg Tablet, 1.5 MG PO MON,MON,MON,MON,SAT, (Reported) 1.5MG PO ON MON,,, MON AND SAT Past Rnsohjd-Jlqwby-Yuwegk Hx Patient Social History Alcohol Use: Denies Use Recreational Drug Use: No Smoking Status: Never a Smoker 2nd Hand Smoke Exposure: No Recent Foreign Travel: No Contact w/Someone Who Travel: No Recent Infectious Disease Expo: No Recent Hopitalizations: No Physical Abuse: No Sexual Abuse: No Mistreated: No Fear: No Seasonal Allergies Seasonal Allergies: No Past Medical History Surgeries: Yes Coronary Stent, Pacemaker, Vascular Surgery Respiratory: No Cardiac: Yes (PACEMAKER) Atrial Fibrillation, Coronary Artery Disease Neurological: Yes Stroke Genitourinary: No Gastrointestinal: No Musculoskeletal: No Endocrine: No HEENT: No Cancer: No Psychosocial: No Integumentary: No Blood Disorders: No Review of Systems Time Seen by Provider: 08:52 Sepsis Event Evaluation Height, Weight, BMI Height: '" Weight: lbs. oz. kg; 27.73 BMI Method: Exam Exam Vital Signs Date Time Temp Pulse Resp B/P (MAP) Pulse Ox O2 Delivery O2 Flow Rate FiO2 11/17/19 06:44 95 Nasal Cannula 4.00 11/17/19 05:45 37.0 93 18 168/89 (115) 94 Nasal Cannula 4.00 11/17/19 05:42 37.0 96 26 119/70 (106) 96 Nasal Cannula 2.00 11/17/19 03:11 Nasal Cannula 2.00 11/17/19 03:08 96 Nasal Cannula 2.00 11/17/19 02:32 96 Nasal Cannula 2.00 96 11/17/19 02:32 37.3 106 22 152/84 (106) 96 I & O 11/17/19 07:00 Intake Total 2150 ml Balance 2150 ml Height & Weight Height: '" Weight: lbs. oz. kg; 27.73 BMI Method: General Appearance: No Apparent Distress, WD/WN HEENT: PERRL/EOMI, Normal ENT Inspection, Pharynx Normal Neck: Full Range of Motion, Non Tender Respiratory: No Accessory Muscle Use, Crackles, Respiratory Distress (mild, tachycardia with oxygen sats in the mid to upper 90s on 2 L by nasal cannula.) Cardiovascular: Regular Rate, Rhythm, No Edema, Normal Peripheral Pulses Capillary Refill: Less Than 3 Seconds Peripheral Pulses: 1+ Dorsalis Pedis (R), 1+ Left Dors-Pedis (L); 2+ Radial Pulses (R), 2+ Radial Pulses (L) Gastrointestinal: normal bowel sounds, non tender, soft Extremity: Normal Capillary Refill, Non Tender Neurologic/Psychiatric: Alert Skin: Normal Color, Warm/Dry Lymphatic: No Adenopathy Results Lab Laboratory Tests 11/17/19 02:41 Assessment/Plan Assessment/Plan Influenza -Tamiflu Hypoxia with interstitial infiltrates r/o PNA-- failed out pt tx with unknown Abx -change Levaquin to Cefepime -IVF -Check BNP -Jaquez cultures pending hx of Afib -Pt is on coumadin at home -Start 2mg of coumadin for now MOISÉS JACINTO DO Nov 17, 2019 07:22
--- NOTE | 2019-11-17 07:51 | Diagnostic Imaging Report ---
EXAM: CHEST 1 VIEW, AP/PA ONLY INDICATION: Fall. COMPARISON: None. FINDINGS: Cardiomegaly. Diffuse interstitial opacities throughout both lungs. Cardiac pacer. No dense consolidation in the lungs. No pleural effusion or pneumothorax. No acute osseous findings. IMPRESSION: 1. Cardiomegaly. 2. Diffuse interstitial opacities are at least partially due to fibrotic change. A degree of interstitial edema cannot be excluded. Dictated by: Dictated on workstation # [id number]
[2019-11-17 08:07] LABS: INR 1.8 (0.8-1.4); PROTHROMBIN TIME PATIENT 21.9 SEC (12.2-14.7)
[2019-11-17] MEDS: LACTATED RINGERS 1,000 ML IV SCH ×3 (09:03→19:41)
[2019-11-17] MEDS: meTOprolol TARTRATE 50 MG (LOPRESSOR) TAB PO SCH ×2 (09:04→19:41)
[2019-11-17] MEDS: OSELTAMIVIR 75 MG (TAMIFLU) CAPSULE PO SCH ×2 (09:04→19:41)
[2019-11-17] MEDS: RT-ALBUTEROL/IPRATROPIUM 3 ML (DUONEB) VIAL INH SCH ×4 (10:26→23:51)
--- NOTE | 2019-11-17 11:51 | History & Physical-Hospitalist ---
History of Present Illness HPI/Chief Complaint CC: Influenza with hypoxia and elevated BNP with troponin HPI: This is an 79yoWF clinic patient of Dr Vargas and [facility] who has a h/o CAD with stents and right carotid stent with pacemaker placement and AF on Coumadin therapy who presents to the ER with weakness and dyspnea and recent fall x 2. Patient was found to have influenza and elevated BNP with troponin in need of close monitoring in ICU with Cardiology and Pulmonology consultation. Hypoxia continues and maintained on O2. She does not weak O2 at home. 60 years and retired form [employer] and [employer]. Went to ER on Monday for pacemaker check and elevated BP. Currently she is still feeling very weak. Source: patient Exam Limitations: no limitations Date Seen 11/17/19 Time Seen by a Provider: 10:30 Attending Physician Constantino Shields,Greg CASTELLON Referring Physician Date of Admission Nov 17, 2019 at 04:50 Home Medications & Allergies Home Medications Reviewed patient Home Medication Reconciliation performed by pharmacy medication reconciliations cad technician and/or nursing. Patients Allergies have been reviewed. Allergies Allergies Coded Allergies Penicillins (Unverified Allergy, Unknown, 11/17/19) Past Rbbatsl-Mtxmdj-Kxvllc Hx Past Med/Social Hx: Reviewed Nursing Past Med/Soc Hx, Reviewed and Corrections made Patient Social History Marrital Status: Employed/Student: retired Alcohol Use: Denies Use Recreational Drug Use: No Smoking Status: Never a Smoker 2nd Hand Smoke Exposure: No Recent Foreign Travel: No Contact w/other who traveled: No Recent Hopitalizations: No Recent Infectious Disease Expo: No Seasonal Allergies Seasonal Allergies: No Past Medical History Surgeries: Coronary Stent, Pacemaker, Vascular Surgery Cardiac: Atrial Fibrillation, Coronary Artery Disease, High Cholesterol, Hype rtension Neurological: Stroke Musculoskeletal: Arthritis History of Blood Disorders: No Review of Systems Constitutional: see HPI, dizziness, malaise, weakness Respiratory: cough, dyspnea on exertion, short of breath, wheezing Cardiovascular: palpitations Psychiatric/Neurological: Anxiety, Depressed All Other Systems Reviewed Negative Unless Noted: Yes Physical Exam Physical Exam Vital Signs Vital Signs - First Documented 11/17/19 02:32 Temp 37.3 Pulse 106 Resp 22 B/P (MAP) 152/84 (106) Pulse Ox 96 O2 Delivery Nasal Cannula O2 Flow Rate 2.00 FiO2 96 Capillary Refill : Less Than 3 Seconds Height, Weight, BMI Height: '" Weight: lbs. oz. kg; 27.73 BMI Method: General Appearance: WD/WN, Anxious, Chronically ill, Mild Distress Eyes: Right Eye Normal Inspection, Right Eye PERRL HEENT: PERRL/EOMI, Normal ENT Inspection, Pharynx Normal, Moist Mucous Membranes Neck: Full Range of Motion, Normal Inspection, Non Tender Respiratory: Chest Non Tender, No Accessory Muscle Use, No Respiratory Distress, Decreased Breath Sounds, Wheezing Cardiovascular: Regular Rate, Rhythm, No Edema, No Gallop, No JVD, No Murmur, Normal Peripheral Pulses Gastrointestinal: Normal Bowel Sounds, No Organomegaly, No Pulsatile Mass, Non Tender, Soft Back: Normal Inspection, No CVA Tenderness, No Vertebral Tenderness Extremity: Normal Capillary Refill, Normal Inspection, Normal Range of Motion, Non Tender, No Calf Tenderness, No Pedal Edema Neurologic/Psychiatric: Alert, Oriented x3, No Motor/Sensory Deficits, server administrator II- XII Norm as Tested, Depressed Affect Skin: Normal Color, Warm/Dry Lymphatic: No Adenopathy Results Results/Procedures Labs Laboratory Tests 11/17/19 02:41 Patient resulted labs reviewed. Assessment/Plan Admission Diagnosis Assessment: Influenza A Acute CHF with elevated BNP Hypoxia new onset NSTEMI AF Pacemaker OAC on Coumadin CAD stents PVD right carotid artery stent Plan: ICU Tamiflu Dr Valenzuela consult appreciated Admission Status: Inpatient Order (span 2 midnights) Reason for Inpatient Admission: Flu and CHF and NSTEMI Diagnosis/Problems Diagnosis/Problems (1) Influenza Status: Acute (2) NSTEMI (non-ST elevated myocardial infarction) (3) Elevated brain natriuretic peptide (BNP) level (4) CAD (coronary artery disease) (5) PVD (peripheral vascular disease) (6) Stented coronary artery (7) History of right common carotid artery stent placement (8) Atrial fibrillation (9) Pacemaker (10) Anticoagulated on Coumadin (11) Hypoxia Status: Acute (12) Nausea and vomiting Status: Acute Qualifiers: Vomiting type: unspecified Vomiting Intractability: non-intractable Qualified Codes: R11.2 - Nausea with vomiting, unspecified Clinical Quality Measures DVT/VTE Risk/Contraindication: Risk Factor Score Per Nursin RFS Level Per Nursing on Admit: 4+=Very High SIXTO ANAND DO Nov 17, 2019 11:51
[2019-11-17] MEDS ORDERED: ASPIRIN 81 MG CHEW (CHILDREN'S ASA) PO STA (12:44)
--- NOTE | 2019-11-17 13:27 | Consultation-Cardiology ---
HPI-Cardiology Cardiology Consultation: Date of Consultation 11/17/19 Time Seen by a Provider: 12:10 Date of Admission Attending Physician Constantino Shields Admitting Physician Greg Vargas MD Consulting Physician ANDREINA LEAHY MD, MA, FACP, FACC, FSCAI, CCDS Physician requesting consult: Dr Mclean HPI: Chief Complaint: Reason for consultation: Elevated troponin HPI 79 yo woman whose ambulation is limited and who uses a bedside commode at home. Earlier today, she slid off the commode and couldn't get herself up. No loss of conscious. called EMS who brought her to ER. Has been having cough productive of yellowish sputum for several days. Has been somewhat more short of breath than usual. Does not report palp or syncope or swelling Did have some epigastric discomfort yesterday for less than an hour that she felt was acid reflux. It did not radiate. It was a feeling of burning that was mild to mod in intensity and resolved w/o any intervention. Has has symptoms like that intermittently for several years. These symptoms are infrequent, she says, but cannot describe the frequency Review of Systems-Cardiology Review of Systems Constitutional: malaise (chronic malaise and gen weakness); No weight loss, No weight gain Eyes: No vision change Ears/Nose/Throat: No nasal drainage, No recent hearing loss, No ulcerations Respiratory: As described under HPI Cardiovascular: As described under HPI Gastrointestinal: No diarrhea, No nausea, No vomiting Genitourinary: No dysuria, No hematuria, No urine frequency changes Musculoskeletal: back pain (chronic) Skin: No rash, No ulcerations Psychiatric/Neurological: other (reports chronic numbness of fingers on the L and chronic gen weakness that is somewhat more on the L); No seizure, No syncope Hematologic: No bleeding abnormalities All Other Systems Reviewed Negative Unless Noted: Yes [id number] Hx Patient Social History Alcohol Use: Denies Use Recreational Drug Use: No Smoking Status: Never a Smoker 2nd Hand Smoke Exposure: No Recent Foreign Travel: No Recent Infectious Disease Expo: No Hospitalization with Isolation: Denies Past Medical History PMH As described under Assessment. Family Medical History Family Medical History: She does not report fam h/o early CAD Allergies and Home Medications Allergies Coded Allergies: Penicillins (Unverified Allergy, Unknown, 11/17/19) Patient Home Medication List Home Medication List Reviewed: Yes Physical Exam-Cardiology Physical Exam Vital Signs/I&O 11/17/19 11/17/19 11/17/19 11/17/19 02:32 02:32 03:08 03:11 Temp 37.3 Pulse 106 Resp 22 B/P (MAP) 152/84 (106) Pulse Ox 96 96 96 O2 Delivery Nasal Cannula Nasal Cannula Nasal Cannula O2 Flow Rate 2.00 2.00 2.00 FiO2 96 11/17/19 11/17/19 11/17/19 11/17/19 05:42 05:45 06:44 07:00 Temp 37.0 37.0 Pulse 96 93 101 Resp 26 18 17 B/P (MAP) 119/70 (106) 168/89 (115) 154/74 (100) Pulse Ox 96 94 95 92 O2 Delivery Nasal Cannula Nasal Cannula Nasal Cannula Nasal Cannula O2 Flow Rate 2.00 4.00 4.00 4.00 11/17/19 11/17/19 11/17/19 11/17/19 07:00 08:00 08:00 09:00 Pulse 116 98 105 Resp 11 26 B/P (MAP) 169/61 (97) 159/94 (115) Pulse Ox 96 97 O2 Delivery Nasal Cannula Nasal Cannula Nasal Cannula O2 Flow Rate 4.00 4.00 4.00 11/17/19 11/17/19 11/17/19 11/17/19 10:00 10:26 11:00 11:04 Pulse 93 82 Resp 25 17 B/P (MAP) 138/62 (87) 147/57 (87) Pulse Ox 95 98 97 O2 Delivery Nasal Cannula Nasal Cannula Nasal Cannula Nasal Cannula O2 Flow Rate 4.00 4.00 4.00 4.00 11/17/19 11/17/19 11/17/19 11/17/19 12:00 12:00 12:13 13:00 Temp 37.2 Pulse 92 94 96 Resp 29 B/P (MAP) 104/79 (87) 120/79 (93) Pulse Ox 91 94 O2 Delivery Nasal Cannula Nasal Cannula O2 Flow Rate 4.00 4.00 Capillary Refill : Less Than 3 Seconds Constitutional: AAO x 3, well-developed, well-nourished HEENT: PERRL, EOMI, hearing is well preserved Neck: carotid pulses are 2 + bilaterally Respiratory: No accessory muscle use; other (good, bilat air entry; basal coarse crackles) Cardiovascular: irregularly irregular, S1 and S2, systolic murmur (soft MAGDALENE at card base) Gastrointestinal: No tender; soft; No guarding, No rebound; audible bowel sounds Extremities: No clubbing, No cyanosis, No significant edema Neurologic/Psychiatric: oriented x 3, other (seems to move all limbs equally, power somewhat diminished on the L) Skin: normal color, warm/dry; No rash on exposed areas, No ulcerations on exposed areas Data Review Labs Laboratory Tests 11/17/19 02:41: White Blood Count 6.7, Red Blood Count 4.60, Hemoglobin 13.2, Hematocrit 40, Mean Corpuscular Volume 87, Mean Corpuscular Hemoglobin 29, Mean Corpuscular Hem oglobin Concent 33, Red Cell Distribution Width 14.9H, Platelet Count 196, Mean Platelet Volume 10.1, Neutrophils (%) (Auto) 78H, Lymphocytes (%) (Auto) 9L, Monocytes (%) (Auto) 12, Eosinophils (%) (Auto) 0, Basophils (%) (Auto) 0, Neutr ophils # (Auto) 5.2, Lymphocytes # (Auto) 0.6L, Monocytes # (Auto) 0.8, Eosinop hils # (Auto) 0.0, Basophils # (Auto) 0.0, Prothrombin Time 23.6H, INR Comment 2.0H, Activated Partial Thromboplast Time 37H, Sodium Level 137, Potassium Level 4.4, Chloride Level 104, Carbon Dioxide Level 19L, Anion Gap 14, Blood Urea Nitrogen 11, Creatinine 0.72, Estimat Glomerular Filtration Rate > 60, BUN/Creat inine Ratio 15, Glucose Level 140H, Calcium Level 9.3, Corrected Calcium 9.3, T otal Bilirubin 0.7, Aspartate Amino Transf (AST/SGOT) 22, Alanine Aminotransferase (ALT/SGPT) 10, Alkaline Phosphatase 128, Troponin I 0.071H, B- Type Natriuretic Peptide 681.2H, Total Protein 7.5, Albumin 4.0 11/17/19 02:50: Lactic Acid Level 1.68 11/17/19 03:05: Urine Color YELLOW, Urine Clarity CLEAR, Urine pH 6.0, Urine Specific [place] >=1.030, Urine Protein 1+H, Urine Glucose (UA) NEGATIVE, Urine Ketones 1+H, Urine Nitrite NEGATIVE, Urine Bilirubin NEGATIVE, Urine Urobilinogen 0.2, Urine Leukocyte Esterase NEGATIVE, Urine RBC (Auto) 3+H, Urine RBC 25-50H, Urine WBC 0-2, Urine Squamous Epithelial Cells 5-10, Urine Crystals NONE, Urine Bacteria TRACE, Urine Casts NONE, Urine Mucus MODERATEH, Urine Culture Indicated CULTURE PENDING 11/17/19 03:25: Blood Gas Puncture Site RIGHT RADIAL, Blood Gas Patient Temperature 37.3, Arterial Blood pH 7.38, Arterial Blood Partial Pressure CO2 37, Arterial Blood Partial Pressure O2 86, Arterial Blood HCO3 22L, Arterial Blood Total CO2 22.7, Arterial Blood Oxygen Saturation 96, Arterial Blood Base Excess -2.6L, Danny Test YES-POS, Blood Gas Ventilator Setting NO, Blood Gas Inspired Oxygen 2L 11/17/19 07:46: Prothrombin Time 21.9H, INR Comment 1.8H 11/17/19 09:48: Troponin I 1.702*H Microbiology 11/17/19 Influenza Types A,B Antigen (NANY) - Final, Complete Laboratory Tests 11/17/19 02:41 A/P-Cardiology Assessment/Admission Diagnosis Influenza A NSTEMI Chronic A Fib Chronic warfarin anticoag CAD. Pt reports h/o cor stents done at [facility] several years ago. Does not know any details Carotid art dz. 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 She does not recall the date of her stroke Gen weakness and limited ambulation Poor memory vs mild dementia Discussion and Recomendations * Treat with ASA and warfarin and bb and statin * Try to obtain cardiac records. Pt says she has seen cardiologists in and [place] * Treatment of flu is with the Hospitalist service * We discussed cor treatment options. She desires conservative therapy for now. Will consider invasive management Clinical Quality Measures DVT/VTE Risk/Contraindication: Risk Factor Score Per Nursin RFS Level Per Nursing on Admit: 4+=Very High ANDREINA LEAHY MD FACP [facility] CCDS Nov 17, 2019 13:27
[2019-11-17] MEDS: warFARin 2 MG (COUMADIN) TAB PO SCH (17:55)
[2019-11-17] MEDS ORDERED: ACET325T49 PO (22:40)
[2019-11-17] MEDS ORDERED: CYAN100T3 PO (22:40)
[2019-11-17] MEDS ORDERED: ATOR40TA PO (22:40)
[2019-11-17] MEDS ORDERED: CLOP75TA69 PO (22:40)
[2019-11-17] MEDS ORDERED: DILT180C54 PO (22:40)
[2019-11-17] MEDS ORDERED: NITR0.4T42 SL (22:40)
[2019-11-17] MEDS ORDERED: CHOL200025 PO (22:40)
[2019-11-17] MEDS ORDERED: WARF1TAB PO ×2 (22:40)
[2019-11-17] MEDS ORDERED: LISI-552 PO (22:40)
[2019-11-17] MEDS ORDERED: CARV6.25 PO (22:40)
[2019-11-17] MEDS ORDERED: TOLTA4 PO (22:40)
[2019-11-18] VITALS (23 sets, daily range): BP systolic 90–162; BP diastolic 59–137
[2019-11-18] MEDS: LACTATED RINGERS 1,000 ML IV SCH ×3 (03:00→17:36)
[2019-11-18 03:52] LABS: BASOPHILS % (AUTO) 0 % (0-10); EOSINOPHILS % (AUTO) 0 % (0-10); HEMATOCRIT 37 % (35-52); HEMOGLOBIN 12.1 G/DL (11.5-16.0); LYMPHOCYTES # (AUTO) 1.3 X 10^3 (1.0-4.0); LYMPHOCYTES % (AUTO) 30 % (12-44); MEAN CORPUSCULAR HEMOGLOBIN 29 PG (25-34); MEAN CORPUSCULAR HGB CONC 33 G/DL (32-36); MEAN CORPUSCULAR VOLUME 89 FL (80-99); MEAN PLATELET VOLUME 9.8 FL (7.4-10.4); MONOCYTES # (AUTO) 0.5 X 10^3 (0.0-1.0); MONOCYTES % (AUTO) 11 % (0-12); NEUTROPHILS # (AUTO) 2.6 X 10^3 (1.8-7.8); NEUTROPHILS % (AUTO) 58 % (42-75); PLATELET COUNT 168 10^3/uL (130-400); RED CELL DISTRIBUTION WIDTH 15.1 % (10.0-14.5); WHITE BLOOD COUNT 4.5 10^3/uL (4.3-11.0)
[2019-11-18] MEDS: RT-ALBUTEROL/IPRATROPIUM 3 ML (DUONEB) VIAL INH SCH ×6 (03:58→21:11)
[2019-11-18 04:07] LABS: INR 1.5 (0.8-1.4); PROTHROMBIN TIME PATIENT 18.6 SEC (12.2-14.7)
[2019-11-18 04:18] LABS: ALANINE AMINOTRANSFERASE 12 U/L (0-55); ALBUMIN 3.5 GM/DL (3.2-4.5); ALKALINE PHOSPHATASE 109 U/L (40-136); BILIRUBIN,TOTAL 0.6 MG/DL (0.1-1.0); BUN/CREATININE RATIO 14; CARBON DIOXIDE 24 MMOL/L (21-32); CHLORIDE 106 MMOL/L (98-107); CREATININE SERUM 0.79 MG/DL (0.60-1.30); GFR ESTIMATED > 60; GLUCOSE 95 MG/DL (70-105); MAGNESIUM 1.7 MG/DL (1.6-2.4); PHOSPHORUS 2.6 MG/DL (2.3-4.7); POTASSIUM 3.6 MMOL/L (3.6-5.0); SODIUM 139 MMOL/L (135-145); TOTAL PROTEIN 6.4 GM/DL (6.4-8.2)
[2019-11-18] MEDS: KCL 20 MEQ TAB (K-DUR) PO SCH (04:53)
[2019-11-18] MEDS: POTASSIUM CL 10MEQ/50ML IVPB 50 ML IV SCH (04:53)
[2019-11-18] MEDS: MAGNESIUM 1 GM/100 ML IVPB 100 ML IV SCH ×3 (04:53→08:30)
[2019-11-18] MEDS ORDERED: LEVOFLOXACIN 750 MG/D5W 150 ML PRE-MIX IV SCH (05:00)
[2019-11-18] MEDS ORDERED: KCL 20 MEQ TAB (K-DUR) PO ONE (06:00)
--- NOTE | 2019-11-18 06:22 | Pulmonary Progress Note ---
Subjective Time Seen by a Provider: 06:19 Subjective/Events-last exam complains of SOB. Sepsis Event Evaluation Height, Weight, BMI Height: '" Weight: lbs. oz. kg; 27.73 BMI Method: Focused Exam Lactate Level 11/17/19 02:50: Lactic Acid Level 1.68 Time of Focused Exam: 04:54 Exam Exam Vital Signs Date Time Temp Pulse Resp B/P (MAP) Pulse Ox O2 Delivery O2 Flow Rate FiO2 11/18/19 06:00 90 20 161/75 (103) 97 Nasal Cannula 3.00 11/18/19 05:00 80 20 151/84 (106) 97 Nasal Cannula 3.00 11/18/19 04:00 85 18 160/109 (126) 93 Nasal Cannula 3.00 11/18/19 03:00 72 18 143/81 (101) 98 Nasal Cannula 3.00 11/18/19 02:00 86 18 138/61 (86) 98 Nasal Cannula 3.00 11/18/19 01:00 61 11/18/19 01:00 84 20 131/78 (95) 96 Nasal Cannula 3.00 11/18/19 00:00 89 22 134/69 (90) 96 Nasal Cannula 3.00 11/17/19 23:26 36.5 11/17/19 23:26 Nasal Cannula 3.00 11/17/19 23:00 83 25 122/79 (93) 95 Nasal Cannula 3.00 11/17/19 22:00 72 20 144/78 (100) 94 Nasal Cannula 3.00 11/17/19 21:00 84 20 141/78 (99) 95 Nasal Cannula 2.00 11/17/19 20:50 37.2 67 19 152/89 (110) 95 Nasal Cannula 2.00 11/17/19 20:00 Nasal Cannula 2.00 11/17/19 20:00 79 25 152/89 (110) 94 Nasal Cannula 4.00 11/17/19 19:20 96 Nasal Cannula 3.00 11/17/19 19:00 80 11/17/19 19:00 75 22 143/67 (92) 94 Nasal Cannula 4.00 11/17/19 18:00 77 22 151/75 (100) 90 Nasal Cannula 4.00 11/17/19 17:00 73 14 105/66 (79) 92 Nasal Cannula 4.00 11/17/19 16:00 Nasal Cannula 4.00 11/17/19 16:00 70 24 136/70 (92) 96 Nasal Cannula 4.00 11/17/19 16:00 36.5 11/17/19 14:49 93 Vapotherm 20.00 45 11/17/19 14:42 97 Nasal Cannula 4.00 11/17/19 14:00 82 30 134/31 (65) 95 Nasal Cannula 4.00 11/17/19 13:00 96 29 120/79 (93) 94 Nasal Cannula 4.00 11/17/19 12:13 94 11/17/19 12:00 92 104/79 (87) 91 Nasal Cannula 4.00 11/17/19 12:00 37.2 11/17/19 11:04 Nasal Cannula 4.00 11/17/19 11:00 82 17 147/57 (87) 97 Nasal Cannula 4.00 11/17/19 10:26 98 Nasal Cannula 4.00 11/17/19 10:00 93 25 138/62 (87) 95 Nasal Cannula 4.00 11/17/19 09:00 105 26 159/94 (115) 97 Nasal Cannula 4.00 11/17/19 08:00 98 11 169/61 (97) 96 Nasal Cannula 4.00 11/17/19 08:00 Nasal Cannula 4.00 11/17/19 07:00 116 11/17/19 07:00 101 17 154/74 (100) 92 Nasal Cannula 4.00 11/17/19 06:44 95 Nasal Cannula 4.00 I & O 11/18/19 07:00 Intake Total 1297 ml Output Total 1950 ml Balance -653 ml Height & Weight Height: '" Weight: lbs. oz. kg; 27.73 BMI Method: General Appearance: WD/WN, Anxious, Chronically ill, Mild Distress HEENT: PERRL/EOMI, Normal ENT Inspection, Pharynx Normal, Moist Mucous Me mbranes Neck: Full Range of Motion, Normal Inspection, Non Tender Respiratory: Chest Non Tender, No Accessory Muscle Use, No Respiratory Distress, Decreased Breath Sounds, Wheezing Cardiovascular: Regular Rate, Rhythm, No Edema, No Gallop, No JVD, No Murmur, Normal Peripheral Pulses Capillary Refill: Less Than 3 Seconds Peripheral Pulses: 1+ Dorsalis Pedis (R), 1+ Left Dors-Pedis (L); 2+ Radial Pulses (R), 2+ Radial Pulses (L) Gastrointestinal: normal bowel sounds, non tender, soft Extremity: Normal Capillary Refill, Normal Inspection, Normal Range of Motion, Non Tender, No Calf Tenderness, No Pedal Edema Neurologic/Psychiatric: Alert, Oriented x3, No Motor/Sensory Deficits, collection advisor II- XII Norm as Tested, Depressed Affect Skin: Normal Color, Warm/Dry Lymphatic: No Adenopathy Results Lab Laboratory Tests 11/17/19 02:41 11/18/19 03:37 Assessment/Plan Assessment/Plan Influenza -Tamiflu Hypoxia with interstitial infiltrates r/o PNA-- failed out pt tx with unknown Abx -change Levaquin to Cefepime -IVF -Check BNP -Jaquez cultures pending hx of Afib -Pt is on coumadin at home -Start 2mg of coumadin for now -inr IS < 2 will start lovenox theraputic dosing until INR is at least 2 MOISÉS JACINTO DO Nov 18, 2019 06:22
--- NOTE | 2019-11-18 06:57 | Diagnostic Imaging Report ---
INDICATION: Influenza, cardiac pacemaker. COMPARISON: 11/17/19 FINDINGS: Single view of the chest demonstrates persistent cardiac enlargement. There are persistent but decreased interstitial infiltrates throughout both lungs. There is no pneumothorax or large effusion. Pacemaker is stable. IMPRESSION: Slightly improved aeration. Dictated by: Dictated on workstation # [id number]
[2019-11-18] MEDS: OSELTAMIVIR 75 MG (TAMIFLU) CAPSULE PO SCH (08:30)
[2019-11-18] MEDS: meTOprolol TARTRATE 50 MG (LOPRESSOR) TAB PO SCH ×2 (08:30→20:32)
[2019-11-18] MEDS: ENOXAPARIN 80 MG/0.8 ML (LOVENOX) SYR SC SCH ×2 (08:30→17:36)
[2019-11-18] MEDS ORDERED: CALC600T80 PO (09:50)
[2019-11-18] MEDS ORDERED: TRAM50TA3 PO (09:50)
[2019-11-18] MEDS ORDERED: MIRA25TA PO (09:50)
[2019-11-18] MEDS ORDERED: POTA20TA15 PO (09:52)
[2019-11-18] MEDS: CEFEPIME INJECTION 2,000 MG in WATER (STERILE) FOR INJECTION 20 ML IV SCH (10:58)
[2019-11-18] MEDS: CYANOCOBALAMIN 1,000 MCG (VITAMIN B-12) TABLET PO SCH (10:58)
--- NOTE | 2019-11-18 11:20 | Progress Note - Hospitalist ---
ISAIAH SU, MEDICAL STUDENT 11/18/19 1120: Subjective HPI/CC On Admission Date Seen by Provider: Nov 18, 2019 Time Seen by Provider: 10:00 CC: Influenza with hypoxia and elevated BNP with troponin HPI: This is an 79yoWF clinic patient of Dr Vargas and [facility] who has a h/o CAD with stents and right carotid stent with pacemaker placement and AF on Coumadin therapy who presents to the ER with weakness and dyspnea and recent fall x 2. Patient was found to have influenza and elevated BNP with troponin in need of close monitoring in ICU with Cardiology and Pulmonology consultation. Hypoxia continues and maintained on O2. She does not weak O2 at home. 60 years and retired form [employer]. Went to ER on Monday for pacemaker check and elevated BP. Currently she is still feeling very weak. Subjective/Events-last exam Patient is doing well over night Slept well Still coughing but no phlegm produced Patient inquired about B12 injections Focused Exam Lactate Level 11/17/19 02:50: Lactic Acid Level 1.68 Time of Focused Exam: 04:54 Objective Exam Vital Signs Vital Signs Date Time Temp Pulse Resp B/P (MAP) Pulse Ox O2 Delivery O2 Flow Rate FiO2 11/18/19 09:00 112 27 132/79 (96) 90 Nasal Cannula 3.00 11/18/19 08:00 36.9 11/17/19 14:49 45 Capillary Refill : Less Than 3 Seconds Results/Procedures Lab Laboratory Tests 11/18/19 03:37 Patient resulted labs reviewed. Assessment/Plan Assessment and Plan Assess & Plan/Chief Complaint Assessment: Influenza A Acute CHF with elevated BNP Hypoxia new onset NSTEMI AF Pacemaker OAC on Coumadin CAD stents PVD right carotid artery stent Influenza -Tamiflu Hypoxia with interstitial infiltrates r/o PNA-- failed out pt tx with unknown Abx -change Levaquin to Cefepime per Dr. aMrie -IVF -Check BNP -Jaquez cultures pending hx of Afib -Pt is on coumadin at home -Start 2mg of coumadin for now Dr. Valenzuela planning for heart cath tomorrow Start B12 Injections as patient normally receives supplementation Clinical Quality Measures DVT/VTE Risk/Contraindication: Risk Factor Score Per Nursin RFS Level Per Nursing on Admit: 4+=Very High TAMARA ANAND DO 2/24/20 1614: Subjective Subjective/Events-last exam Cardiac catheterization planned per Dr. Valenzuela tomorrow. Started her vitamin B12 per her request she takes at home. Labs remain normal. Wheezing still, nebulizer treatments and oxygen supplementation maintained. Tamiflu completed. Changed Levaquin to Cefepime. Has a history of two strokes. Right elbow issue will require platform with walker. Inpatient rehab candidate. Definitely had a non-ST elevation VT. Pt has not been taking any Aspirin or Plavix. Review of Systems General: Malaise HEENT: Dysphasia Pulmonary: Cough Neurological: Confusion Objective Exam General Appearance: No Apparent Distress, WD/WN HEENT: PERRL/EOMI, TMs Normal, Normal ENT Inspection, Pharynx Normal, Moist Mucous Membranes Neck: Full Range of Motion, Normal Inspection, Non Tender, Supple, Carotid Bruit Respiratory: Chest Non Tender, Normal Breath Sounds, No Accessory Muscle Use, No Respiratory Distress, Wheezing Cardiovascular: Regular Rate, Rhythm, No Edema, No Gallop, No JVD, No Murmur, Normal Peripheral Pulses Gastrointestinal: Normal Bowel Sounds, No Organomegaly, No Pulsatile Mass, Non Tender, Soft Back: Normal Inspection, No CVA Tenderness, No Vertebral Tenderness Extremity: Normal Capillary Refill, Normal Inspection, Normal Range of Motion, Non Tender, No Calf Tenderness, No Pedal Edema Neurologic/Psychiatric: Alert, Oriented x3, No Motor/Sensory Deficits, Normal Mood/Affect Skin: Normal Color, Warm/Dry Lymphatic: No Adenopathy Supervisory-Addendum Brief Verification & Attestation Participated in pt care: history, MDM, physical Personally performed: exam, history, MDM, supervision of care Care discussed with: Medical Student Procedures: n/a Results interpretation: Verified all documentation Verification and Attestation of Medical Student E/M Service A medical student performed and documented this service in my presence. I reviewed and verified all information documented by the medical student and made modifications to such information, when appropriate. I personally performed the physical exam and medical decision making. Tamara Anand, Nov 18, 2019,21:17 ISAIAH SU, MEDICAL STUDENT Nov 18, 2019 11:20 TAMARA ANAND DO Nov 18, 2019 16:14
--- NOTE | 2019-11-18 12:02 | NUR ---
SPOKE WITH THE PT (SHE HAD A LIST OF MEDS FROM A [facility] VISIT) WENT THRU THE EXT MED HISTORY AND CALLED JUL[facility] TO COMPLETE THE MED REC. FUROSEMIDE IS SHOWING ON THE EXT MED HISTORY HOWEVER THE PT SAYS SHE IS NOT TAKING AND WAS TOLD TO DISCONTINUE FROM HER DR DUE TO POTASSIUM LEVELS. MYRBETRIQ 25MG: PT WAS RECENTLY PUT ON THIS MEDICATION AND TOLTERODINE WAS STOPPED OTC MEDS: TYLENOL VIT B12 VIT D3 CALCIUM
--- NOTE | 2019-11-18 12:53 | Progress Note - Cardiology ---
Cardiology SOAP Progress Note Subjective: No further chest/abd pain Gen weakness Shortness of breath better No n/v/d Objective: I&O/Vital Signs 11/18/19 11/18/19 11/18/19 11/18/19 01:00 01:00 02:00 03:00 Pulse 84 61 86 72 Resp 20 18 18 B/P (MAP) 131/78 (95) 138/61 (86) 143/81 (101) Pulse Ox 96 98 98 O2 Delivery Nasal Cannula Nasal Cannula Nasal Cannula O2 Flow Rate 3.00 3.00 3.00 11/18/19 11/18/19 11/18/19 11/18/19 04:00 04:00 05:00 06:00 Pulse 85 80 90 Resp 20 B/P (MAP) 160/109 (126) 151/84 (106) 161/75 (103) Pulse Ox 93 97 97 O2 Delivery Nasal Cannula Nasal Cannula Nasal Cannula Nasal Cannula O2 Flow Rate 3.00 3.00 3.00 3.00 11/18/19 11/18/19 11/18/19 11/18/19 06:51 07:00 07:49 08:00 Temp 36.9 Pulse 83 83 Resp 23 B/P (MAP) 132/84 (100) Pulse Ox 93 93 O2 Delivery Nasal Cannula Nasal Cannula O2 Flow Rate 3.00 3.00 11/18/19 11/18/19 11/18/19 11/18/19 08:00 08:00 09:00 10:00 Pulse 101 112 89 Resp 14 27 30 B/P (MAP) 157/96 (116) 132/79 (96) 118/66 (83) Pulse Ox 93 90 94 O2 Delivery Nasal Cannula Nasal Cannula Nasal Cannula Nasal Cannula O2 Flow Rate 3.00 3.00 3.00 3.00 11/18/19 11/18/19 11/18/19 11/18/19 11:00 11:33 11:45 12:00 Pulse 86 97 Resp 22 13 B/P (MAP) 90/80 (83) 101/88 (92) Pulse Ox 97 97 98 O2 Delivery Nasal Cannula Nasal Cannula Nasal Cannula Nasal Cannula O2 Flow Rate 3.00 3.00 3.00 3.00 11/17/19 23:59 Intake Total 2122 ml Output Total 1950 ml Balance 172 ml Constitutional: AAO x 3, well-developed, well-nourished Respiratory: No accessory muscle use; other (good, bilat air entry; basal coarse crackles) Cardiovascular: irregularly irregular, S1 and S2, systolic murmur (soft MAGDALENE at card base) Gastrointestional: No tender; soft; No guarding, No rebound; audible bowel sounds Extremities: No clubbing, No cyanosis, No significant edema Neurologic/Psychiatric: oriented x 3, other (seems to move all limbs equally, power somewhat diminished on the L) Skin: normal color, warm/dry; No rash on exposed areas, No ulcerations on exposed areas Results/Procedures: Labs Laboratory Tests 11/17/19 15:15: Troponin I 4.304*H 11/18/19 03:37: White Blood Count 4.5, Red Blood Count 4.19L, Hemoglobin 12.1, Hematocrit 37, Mean Corpuscular Volume 89, Mean Corpuscular Hemoglobin 29, Mean Corpuscular Hemoglobin Concent 33, Red Cell Distribution Width 15.1H, Platelet Count 168, Mean Platelet Volume 9.8, Neutrophils (%) (Auto) 58, Lymphocytes (%) (Auto) 30, Monocytes (%) (Auto) 11, Eosinophils (%) (Auto) 0, Basophils (%) (Auto) 0, Neutrophils # (Auto) 2.6, Lymphocytes # (Auto) 1.3, Monocytes # (Auto) 0.5, Eosinophils # (Auto) 0.0, Basophils # (Auto) 0.0, Prothrombin Time 18.6H, INR Comment 1.5H, Sodium Level 139, Potassium Level 3.6, Chloride Level 106, Carbon Dioxide Level 24, Anion Gap 9, Blood Urea Nitrogen 11, Creatinine 0.79, Estimat Glomerular Filtration Rate > 60, BUN/Creatinine Ratio 14, Glucose Level 95, Calcium Level 9.0, Corrected Calcium 9.4, Phosphorus Level 2.6, Magnesium Level 1.7, Total Bilirubin 0.6, Aspartate Amino Transf (AST/SGOT) 38H, Alanine Aminotransferase (ALT/SGPT) 12, Alkaline Phosphatase 109, Total Protein 6.4, Albumin 3.5 Microbiology 11/17/19 MRSA Screen - Final, Complete MRSA not isolated 11/17/19 Blood Culture - Preliminary, Resulted No growth 11/17/19 Urine Culture - Final, Complete 3 or more isolates A/P: Assessment: Influenza A NSTEMI CAD. Last cath in on 01/27/17: 3.5x38 Synergy stent to mid RCA, 4.0x38 Synergy stent to prox RCA, 3x16 Synergy stent to mid LAD, 3.5x28 Synergy stent to prox LAD, 2.0x12 balloon angioplasty to Diag Chronic A Fib S/p [employer] dual chamber pacemaker in 2017 at ([facility] - Dr Pierce) Chronic warfarin anticoag Carotid art dz. 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 She does not recall the date of her stroke Gen weakness and limited ambulation Poor memory Plan: * Treat with ASA and warfarin and bb and statin * We reviewed her records (summarized above) * We recommend repeat card cath, given her known CAD and evidence of ACS during this hosp. I reviewed the rationale, procedure, risks, benefits, potential complications, and alternative of card cath and possible ad hoc cor intervention with her. She understands. Wishes to confer with family * I discussed her case with Dr Mclean this am * Treatment of flu is with the Hospitalist service ANDREINA LEAHY MD FACP FAC CCDS Nov 18, 2019 12:52
--- NOTE | 2019-11-18 13:40 | NUR ---
IRF Evaluation Order received to evaluate patient for the ARU. Will continue to follow for medical stability and functional progress as it relates to evaluation. Thank you for this referral.
[2019-11-18] MEDS: warFARin 2 MG (COUMADIN) TAB PO SCH (17:36)
[2019-11-18] MEDS: ACETAMINOPHEN 500 MG TAB (TYLENOL) PO PRN (20:33)
[2019-11-18] MEDS: OSELTAMIVIR 30 MG (TAMIFLU) CAPSULE PO SCH (20:33)
[2019-11-18] MEDS: ONDANSETRON 4 MG/2 ML (SDV) Z0FRAN IV PRN (20:33)
[2019-11-19] VITALS (14 sets, daily range): BP systolic 107–156; BP diastolic 48–99
[2019-11-19] MEDS: LACTATED RINGERS 1,000 ML IV SCH ×2 (00:29→05:48)
[2019-11-19] MEDS: RT-ALBUTEROL/IPRATROPIUM 3 ML (DUONEB) VIAL INH SCH ×6 (01:53→18:51)
[2019-11-19 03:34] LABS: BASOPHILS % (AUTO) 0 % (0-10); EOSINOPHILS % (AUTO) 1 % (0-10); HEMATOCRIT 32 % (35-52); HEMOGLOBIN 10.4 G/DL (11.5-16.0); LYMPHOCYTES # (AUTO) 1.5 X 10^3 (1.0-4.0); LYMPHOCYTES % (AUTO) 41 % (12-44); MEAN CORPUSCULAR HEMOGLOBIN 29 PG (25-34); MEAN CORPUSCULAR HGB CONC 33 G/DL (32-36); MEAN CORPUSCULAR VOLUME 89 FL (80-99); MEAN PLATELET VOLUME 9.7 FL (7.4-10.4); MONOCYTES # (AUTO) 0.6 X 10^3 (0.0-1.0); MONOCYTES % (AUTO) 15 % (0-12); NEUTROPHILS # (AUTO) 1.7 X 10^3 (1.8-7.8); NEUTROPHILS % (AUTO) 44 % (42-75); PLATELET COUNT 163 10^3/uL (130-400); RED CELL DISTRIBUTION WIDTH 14.8 % (10.0-14.5); WHITE BLOOD COUNT 3.8 10^3/uL (4.3-11.0)
[2019-11-19 03:51] LABS: INR 1.5 (0.8-1.4); PROTHROMBIN TIME PATIENT 19.2 SEC (12.2-14.7)
[2019-11-19 03:56] LABS: BUN/CREATININE RATIO 13; CARBON DIOXIDE 25 MMOL/L (21-32); CHLORIDE 109 MMOL/L (98-107); CREATININE SERUM 0.61 MG/DL (0.60-1.30); GFR ESTIMATED > 60; GLUCOSE 99 MG/DL (70-105); MAGNESIUM 1.8 MG/DL (1.6-2.4); POTASSIUM 3.3 MMOL/L (3.6-5.0); SODIUM 142 MMOL/L (135-145)
[2019-11-19] MEDS: POTASSIUM CL 10MEQ/50ML IVPB 50 ML IV SCH (04:19)
[2019-11-19] MEDS: MAGNESIUM 1 GM/100 ML IVPB 100 ML IV SCH (04:19)
[2019-11-19] MEDS: KCL 20 MEQ TAB (K-DUR) PO SCH (04:19)
[2019-11-19] MEDS: CYANOCOBALAMIN 1,000 MCG (VITAMIN B-12) TABLET PO SCH (05:47)
[2019-11-19] MEDS: ENOXAPARIN 80 MG/0.8 ML (LOVENOX) SYR SC SCH ×2 (05:48→17:46)
[2019-11-19] MEDS ORDERED: KCL 20 MEQ TAB (K-DUR) PO ONE ×3 (06:00→08:00)
--- NOTE | 2019-11-19 06:24 | Pulmonary Progress Note ---
Subjective Time Seen by a Provider: 06:19 Subjective/Events-last exam Pt appears to be improving. Sepsis Event Evaluation Height, Weight, BMI Height: '" Weight: lbs. oz. kg; 27.73 BMI Method: Focused Exam Lactate Level 11/17/19 02:50: Lactic Acid Level 1.68 Time of Focused Exam: 04:54 Exam Exam Vital Signs Date Time Temp Pulse Resp B/P (MAP) Pulse Ox O2 Delivery O2 Flow Rate FiO2 11/19/19 06:05 69 26 156/88 (110) 97 Nasal Cannula 3.00 11/19/19 05:07 74 15 138/61 (86) 99 Nasal Cannula 3.00 11/19/19 04:50 36.2 11/19/19 04:00 81 14 142/67 (92) 98 Nasal Cannula 3.00 11/19/19 04:00 Nasal Cannula 3.00 11/19/19 03:34 96 15 133/64 (87) 97 Nasal Cannula 3.00 11/19/19 02:00 74 21 129/73 (91) 100 Nasal Cannula 3.00 11/19/19 01:53 98 Nasal Cannula 3.00 11/19/19 01:37 97 11/19/19 01:00 86 16 113/48 (69) 96 Nasal Cannula 3.00 11/19/19 00:00 79 35 123/79 (94) 98 Nasal Cannula 3.00 11/18/19 23:58 36.8 11/18/19 23:44 Nasal Cannula 3.00 11/18/19 23:00 92 42 111/59 (76) 96 Nasal Cannula 3.00 11/18/19 22:00 113 154/82 (106) 96 Nasal Cannula 3.00 11/18/19 21:12 96 Nasal Cannula 3.00 11/18/19 21:00 101 162/72 (102) 97 Nasal Cannula 3.00 11/18/19 20:33 37.5 11/18/19 20:00 38.0 11/18/19 20:00 Nasal Cannula 3.00 11/18/19 20:00 106 26 157/88 (111) 96 Nasal Cannula 3.00 11/18/19 19:02 99 11/18/19 19:00 112 14 155/83 (107) 93 Nasal Cannula 3.00 11/18/19 18:05 97 Nasal Cannula 3.00 11/18/19 18:00 102 33 162/75 (104) 97 Nasal Cannula 3.00 11/18/19 17:00 111 26 154/74 (100) 95 Nasal Cannula 3.00 11/18/19 16:16 Nasal Cannula 3.00 11/18/19 16:00 92 28 131/84 (100) 96 Nasal Cannula 3.00 11/18/19 16:00 36.2 11/18/19 15:40 97 Nasal Cannula 3.00 11/18/19 15:00 91 17 143/137 (139) 94 Nasal Cannula 3.00 11/18/19 14:01 37.5 11/18/19 13:00 99 27 118/63 (81) 95 Nasal Cannula 3.00 11/18/19 12:57 80 11/18/19 12:00 97 13 101/88 (92) 98 Nasal Cannula 3.00 11/18/19 11:45 Nasal Cannula 3.00 11/18/19 11:33 97 Nasal Cannula 3.00 11/18/19 11:00 86 22 90/80 (83) 97 Nasal Cannula 3.00 11/18/19 10:00 89 30 118/66 (83) 94 Nasal Cannula 3.00 11/18/19 09:00 112 27 132/79 (96) 90 Nasal Cannula 3.00 11/18/19 08:00 Nasal Cannula 3.00 11/18/19 08:00 101 14 157/96 (116) 93 Nasal Cannula 3.00 11/18/19 08:00 36.9 11/18/19 07:49 93 Nasal Cannula 3.00 11/18/19 07:00 83 23 132/84 (100) 93 Nasal Cannula 3.00 11/18/19 06:51 83 I & O 11/19/19 07:00 Intake Total 5250 ml Output Total 3440 ml Balance 1810 ml Height & Weight Height: '" Weight: lbs. oz. kg; 27.73 BMI Method: General Appearance: No Apparent Distress, WD/WN HEENT: PERRL/EOMI, TMs Normal, Normal ENT Inspection, Pharynx Normal, Moist Mucous Membranes Neck: Full Range of Motion, Normal Inspection, Non Tender, Supple, Carotid Bruit Respiratory: Chest Non Tender, Normal Breath Sounds, No Accessory Muscle Use, No Respiratory Distress, Wheezing Cardiovascular: Regular Rate, Rhythm, No Edema, No Gallop, No JVD, No Murmur, Normal Peripheral Pulses Capillary Refill: Less Than 3 Seconds Peripheral Pulses: 1+ Dorsalis Pedis (R), 1+ Left Dors-Pedis (L); 2+ Radial Pulses (R), 2+ Radial Pulses (L) Gastrointestinal: normal bowel sounds, non tender, soft Extremity: Normal Capillary Refill, Normal Inspection, Normal Range of Motion, Non Tender, No Calf Tenderness, No Pedal Edema Neurologic/Psychiatric: Alert, Oriented x3, No Motor/Sensory Deficits, Normal Mood/Affect Skin: Normal Color, Warm/Dry Lymphatic: No Adenopathy Results Lab Laboratory Tests 11/18/19 03:37 11/19/19 03:23 Assessment/Plan Assessment/Plan Influenza -Tamiflu Hypoxia with interstitial infiltrates r/o PNA-- failed out pt tx with unknown Abx -change Levaquin to Cefepime -IVF -Check BNP -Jaquez cultures pending hx of Afib -coumadin per cardiac dosing -On Lovenox until Coumadin is therapeutic Hypokalemia -Replace MOISÉS JACINTO DO Nov 19, 2019 06:24
[2019-11-19] MEDS ORDERED: FUROSEMIDE 40 MG/4 ML INJ (LASIX) IVP ONE (06:30)
--- NOTE | 2019-11-19 07:22 | Diagnostic Imaging Report ---
HISTORY: Influenza, respiratory failure and hypoxia COMPARISON: 11/18/2019 TECHNIQUE: Single frontal view of the chest FINDINGS: Hazy airspace opacities are seen in the lungs bilaterally, significantly increased compared to the prior study. These are predominantly within the midlungs bilaterally and perihilar region. There is mild cardiomegaly. The left-sided pacemaker leads appear stable. There is aortic atherosclerosis. There is mild diffuse osteopenia. IMPRESSION: 1. Bilateral airspace opacities are increased compared to the prior study, may be due to edema or infection. Dictated by: Dictated on workstation # [id number]
[2019-11-19] MEDS: OSELTAMIVIR 30 MG (TAMIFLU) CAPSULE PO SCH ×2 (08:31→21:19)
[2019-11-19] MEDS: meTOprolol TARTRATE 50 MG (LOPRESSOR) TAB PO SCH ×2 (08:31→21:19)
[2019-11-19] MEDS: CEFEPIME INJECTION 2,000 MG in WATER (STERILE) FOR INJECTION 20 ML IV SCH (10:38)
--- NOTE | 2019-11-19 11:27 | Progress Note - Hospitalist ---
ISAIAH SU, MEDICAL STUDENT 11/19/19 1127: Subjective HPI/CC On Admission Date Seen by Provider: Nov 19, 2019 Time Seen by Provider: 11:00 Influenza + NSTEMI Subjective/Events-last exam Patient describes sleeping well No new complaints Planning for heart cath on Monday Focused Exam Lactate Level 11/17/19 02:50: Lactic Acid Level 1.68 Time of Focused Exam: 04:54 Respiratory: No Accessory Muscle Use, No Respiratory Distress Cardiovascular: Regular Rate, Rhythm, No Edema, No Gallop, No JVD, No Murmur Objective Exam Vital Signs Vital Signs Date Time Temp Pulse Resp B/P (MAP) Pulse Ox O2 Delivery O2 Flow Rate FiO2 11/19/19 09:00 97 16 144/99 (114) 98 Nasal Cannula 2.00 11/19/19 08:00 36.1 11/17/19 14:49 45 Capillary Refill : Less Than 3 Seconds General Appearance: No Apparent Distress, WD/WN HEENT: PERRL/EOMI, Pharynx Normal Neck: Full Range of Motion, Normal Inspection Respiratory: Chest Non Tender, Lungs Clear, No Accessory Muscle Use, No Respiratory Distress Cardiovascular: Regular Rate, Rhythm, No Gallop, No JVD, No Murmur Gastrointestinal: Normal Bowel Sounds, No Pulsatile Mass Rectal: Heme Negative Stool, Deferred Back: Normal Inspection Extremity: Normal Inspection, Normal Range of Motion Neurologic/Psychiatric: Alert, Oriented x3, No Motor/Sensory Deficits, Normal Mood/Affect Results/Procedures Lab Laboratory Tests 11/19/19 03:23 Patient resulted labs reviewed. Assessment/Plan Assessment and Plan Assess & Plan/Chief Complaint Assessment: Influenza A Acute CHF with elevated BNP Hypoxia new onset NSTEMI AF Pacemaker OAC on Coumadin CAD stents PVD right carotid artery stent Influenza -Tamiflu until 11/21 Hypoxia with interstitial infiltrates r/o PNA-- failed out pt tx with unknown Abx -change Levaquin to Cefepime per Dr. Marie until -IVF -Jaquez cultures pending hx of Afib -Pt is on coumadin at home -Start 2mg of coumadin for now Dr. Valenzuela planning for heart cath Monday Continue B12 Injections as patient normally receives supplementation Clinical Quality Measures DVT/VTE Risk/Contraindication: Risk Factor Score Per Nursin RFS Level Per Nursing on Admit: 4+=Very High TAMARA ANAND DO 11/19/19 1429: Subjective Subjective/Events-last exam Cardiac catheterization will be performed tomorrow so her son can talk to Dr. Valenzuela who is a doctor Chest x ray appears worse but clinically she is improved Mild chest pain remains PT and OT will be ordered Cardiac stepdown status now Procacitonin will be initiated since chest x ray appears to be worse Review of Systems General: Fatigue, Malaise Pulmonary: Dyspnea (on Exertion ) Cardiovascular: Chest Pain Objective Exam General Appearance: No Apparent Distress, WD/WN, Chronically ill HEENT: PERRL/EOMI, TMs Normal, Normal ENT Inspection, Pharynx Normal, Moist Mucous Membranes Neck: Full Range of Motion, Normal Inspection, Non Tender, Supple, Carotid Bruit Respiratory: Chest Non Tender, Lungs Clear, No Accessory Muscle Use, No Respiratory Distress, Decreased Breath Sounds Cardiovascular: Regular Rate, Rhythm, No Edema, No Gallop, No JVD, No Murmur, Normal Peripheral Pulses Gastrointestinal: Normal Bowel Sounds, No Organomegaly, No Pulsatile Mass, Non Tender, Soft Back: Normal Inspection, No CVA Tenderness, No Vertebral Tenderness Extremity: Normal Capillary Refill, Normal Inspection, Normal Range of Motion, Non Tender, No Calf Tenderness, No Pedal Edema Neurologic/Psychiatric: Alert, Oriented x3, No Motor/Sensory Deficits, Normal Mood/Affect Skin: Normal Color, Warm/Dry Lymphatic: No Adenopathy Assessment/Plan Assessment and Plan Assess & Plan/Chief Complaint PT/OT IRF? Cath tomorrow Diagnosis/Problems Diagnosis/Problems (1) Hypoxia Status: Acute (2) Nausea and vomiting Status: Acute Qualifiers: Qualified Codes: R11.2 - Nausea with vomiting, unspecified (3) Influenza Status: Acute (4) Atrial fibrillation (5) CAD (coronary artery disease) (6) PVD (peripheral vascular disease) (7) Pacemaker (8) NSTEMI (non-ST elevated myocardial infarction) (9) Elevated brain natriuretic peptide (BNP) level (10) Anticoagulated on Coumadin (11) History of right common carotid artery stent placement (12) Stented coronary artery Supervisory-Addendum Brief Verification & Attestation Participated in pt care: history, MDM, physical Personally performed: exam, history, MDM, supervision of care Care discussed with: Medical Student Procedures: n/a Results interpretation: Verified all documentation Verification and Attestation of Medical Student E/M Service A medical student performed and documented this service in my presence. I reviewed and verified all information documented by the medical student and made modifications to such information, when appropriate. I personally performed the physical exam and medical decision making. Tamara Anand, Nov 19, 2019,20:20 ISAIAH SU, MEDICAL STUDENT Nov 19, 2019 11:27 TAMARA ANAND DO Nov 19, 2019 14:29
--- NOTE | 2019-11-19 11:50 | Occupational Therapy Eval ---
OT Evaluation-General/PLF Medical Diagnosis Admission Date Nov 17, 2019 at 04:50 Medical Diagnosis: Influenza, debility Onset Date: Nov 18, 2019 Therapy Diagnosis Therapy Diagnosis: Decreased ADL status Precautions Precautions/Isolations: Droplet Isolation, Fall Prevention, Standard Precautions, Pressure Ulcer Safety Interventions: None Weight Bear Status Weight Bearing Restriction: Weight Bearing/Tolerated Referral Physician: Vinay DUNCAN Referral Reason: Activity Tolerance, Self Care, Evaluation/Treatment, Strengthening/ROM Medical History Current History Pt experienced weakness/ dyspnea, s/p 2 falls ~ 1 month ago Reviewed History: Yes Social History Home: Single Level Current Living Status: Spouse Entry Into Home: Stairs With Railing ADL-Prior Level of Function SCALE: Activities may be completed with or without assistive devices. 2-Flhgtjgkho-vcasqun completes the activity by him/herself with no assistance from a helper. 5-Set-up or Clean-up Assistance-helper sets up or cleans up; patient completes activity. [place] assists only prior to or following the activity. 4-Supervision or Touching Assistance-helper provides verbal cues and/or touching/steadying and/or contact guard assistance as patient completes activity. Assistance may be provided throughout the activity or intermittently. 3-Partial/Moderate Assistance-helper does LESS THAN HALF the effort. [place] lifts, holds or supports trunk or limbs, but provides less than half the effort. 2-Substantial/Maximal Assistance-helper does MORE THAN HALF the effort. [place] lifts or holds trunk or limbs and provides more than half the effort. 1-Dgamigcuz-kopnmk does ALL the effort. Patient does none of the effort to complete the activity. Or, the assistance of 2 or more helpers is required for the patient to complete the activity. If activity was not attempted, code reason: 7-Patient Refused. 9-Not Applicable-not attempted and the patient did not perform the activity before the current illness, exacerbation or injury. 10-Not Attempted due to Environmental Limitations-(lack of equipment, weather restraints, etc.). 88-Not Attempted due to Medical Conditions or Safety Concerns. Self Care: Independent Functional Cognition: Independent DME/Equipment: Bath Chair, Grab Bars, Shower Occupation: retired Drive Self: No Leisure Interests: sewing, cat OT Current Status Subjective Pt denies pain, then states min pain in R shoulder. Pt alert/ oriented. Pt agrees to OT eval post-PT eval. Mental Status/Objective Patient Orientation: Person, Place, Situation, Normal For Age Attachments: Mandujano Catheter, Telemetry Current Glasses/Contacts: Yes Hand Dominance: Right Upper Extremity ROM R decreased shoulder motion (~60* flexion), PROM to 90* tolerated, tight pectorals noted. L WFL Upper Extremity Coordination WFL BUE Upper Extremity Sensation WFL BUE Upper Extremity Strength WFL BUE (excluding R shoulder decreased strength= 3-/5) ADL-Treatment Eating (QC): 6 Oral Hygiene (QC): 6 On/Off Footwear (QC): 6 Other Treatments Pt provides hx. OT educates on OT role. States CVA ~2016 with pacemaker placement in 2017 or so. Pt states stroke affected L fingertips and tongue. Pt states L fingers WFL now, though tongue continues to go numb once in a while. Pt agrees to MMT/ ROM. Pt's scores above, states she has had corizone shots in R shoulder without improvement. Pt states no difficulties at home, but has fell 2x within month. Pt states she has "equillibrium" problems- states fall to side and fall backwards. Pt has walk in shower, stands to shower though has sc, grab bars present. Pt states is in better health than her and assists with activities when needed. Pt left in room with call light in reach, all needs met. Pt expresses dry lips/ requests gel. Gel given to RT to apply when gown donned. RT agrees. 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 2=Patient will verbalize/demonstrate understanding of assistive devices/modifications for ADL. 3=Patient will improve strength/tolerance for activity to enable patient to perform ADL's. OT Education/Plan Problem List/Assessment Assessment: Decreased Activ Tolerance, Decreased UE Strength, Impaired Funct Balance, Impaired I ADL's, Impaired Self-Care Skills, Restricted Funct UE ROM Discharge Recommendations Plan/Recommendations: Continue POC Therapy Discharge Recommendati: Intermittent Supervision, Home & Family Treatment Plan/Plan of Care Treatment,Training & Education: Yes Patient would benefit from OT for education, treatment and training to promote independence in ADL's, mobility, safety and/or upper extremity function for ADL's. Plan of Care: ADL Retraining, Functional Mobility, UE Funct Exercise/Act Treatment Duration: Nov 26, 2019 Frequency: 5 times per week Estimated Hrs Per Day: .25 hour per day Agreement: Yes 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: Good Time/GCodes Start Time: 11:25 Stop Time: 11:40 Total Time Billed (hr/min): 15 Billed Treatment Time 1JENNIFER (15) FARHAN SAINI OTR Nov 19, 2019 11:50
--- NOTE | 2019-11-19 13:01 | Physician Query Clarification ---
PQ-CHF Specificity Admission Date: Nov 17, 2019 at 04:50 Discharge Date: The medical record reflects the following clinical scenario: History/Risk Factors: CHF per Dr. Mclean Hypertension NSTEMI Clinical Findings: BNP 681.2 Treatment: IVP lasix 80mg. Question: Can you further specify the acuity &/or type of CHF per the clinical indicators above? Please document a response in the Progress Notes or Discharge Summary. 1. Acuity: Acute, Chronic or Acute on Chronic 2. Type: Systolic, Diastolic or Systolic & Diastolic 3. Unspecified: CHF cannot be further specified regarding type or acuity 4. Other, with explanation of clinical findings 5. Clinically undetermined, no explanation for clinical findings PHYSICIAN RESPONSE Acuity: Chronic Type: Systolic Please remember a lack of response to the above will prompt a phone page by CDI/Coding staff. In responding to this query, please exercise your independent professional judgment. The purpose of this communication is to more accurately reflect the complexity of your patients condition. The fact that a question is asked does not imply that any particular answer is desired or expected. Thank you for your timely response to this clarification. Requestors name: Selam Edgar [facility], [facility] Phone # ext [phone] or [phone] THIS PHYSICIAN QUERY FORM IS A PERMANENT PART OF THE MEDICAL RECORD SELAM EDGAR Nov 19, 2019 13:01 ANDREINA LEAHY MD [facility] Nov 20, 2019 13:43
--- NOTE | 2019-11-19 13:47 | Physical Therapy Evaluation ---
PT Evaluation-General Medical Diagnosis Admission Date Nov 17, 2019 at 04:50 Medical Diagnosis: Influenza, debility Onset Date: Nov 18, 2019 Therapy Diagnosis Therapy Diagnosis: weakness Precautions Precautions/Isolations: Droplet Isolation, Fall Prevention, Standard Precautions, Pressure Ulcer influenza Weight Bear Status Right Lower Extremity: Right Weight Bearing/Tolerated Left Lower Extremity: Left Weight Bearing/Tolerated Referral Physician: Vinay DUNCAN Reason for Referral: Evaluation/Treatment Medical History Additional Medical History CAD, R carotid stents/ pacemaker, a fib, HTN, CVA, arthritis Current History Pt admitted to hospital with respiratory failure associated with influenza. Reviewed History: Yes Social History Home: Single Level Current Living Status: Spouse Entry Into Home: Stairs With Railing Prior Prior Level of Function SCALE: Activities may be completed with or without assistive devices. 1-Ydxsnxtpkh-njrgzbz completes the activity by him/herself with no assistance from a helper. 5-Set-up or Clean-up Assistance-helper sets up or cleans up; patient completes activity. [place] assists only prior to or following the activity. 4-Supervision or Touching Assistance-helper provides verbal cues and/or touching/steadying and/or contact guard assistance as patient completes activit y. Assistance may be provided throughout the activity or intermittently. 3-Partial/Moderate Assistance-helper does LESS THAN HALF the effort. [place] lifts, holds or supports trunk or limbs, but provides less than half the effort. 2-Substantial/Maximal Assistance-helper does MORE THAN HALF the effort. [place] lifts or holds trunk or limbs and provides more than half the effort. 9-Uotvxcgsf-htvtdv does ALL the effort. Patient does none of the effort to complete the activity. Or, the assistance of 2 or more helpers is required for the patient to complete the activity. If activity was not attempted, code reason: 7-Patient Refused. 9-Not Applicable-not attempted and the patient did not perform the activity before the current illness, exacerbation or injury. 10-Not Attempted due to Environmental Limitations-(lack of equipment, weather restraints, etc.). 88-Not Attempted due to Medical Conditions or Safety Concerns. Bed Mobility: 6 Transfers (B,C,W/C): 6 Gait: 6 Indoor Mobility (Ambulation): Independent Stairs: Needed Some Help Pt lives at home with her spouse. PT Evaluation-Current Subjective Agrees to PT. Reports she tires easily. Pt/Family Goals return home as before. Objective Patient Orientation: Person, Place, Time, Situation Attachments: Oxygen, Mandujano Catheter ROM/Strength ROM Lower Extremities WFL Strength Lower Extremities grossly 4-/5 Integumentary/Posture Integumentary refer to nursing notes. Bowel Incontinence: No Bladder Incontinence: Mandujano Cath Posture Rounded shoulders and forward head. Neuromuscular (Tone, Coordination, Reflexes) intact and functional Sensory Vision: Functional Hearing: Functional Hand Dominance: Right Sensation Right Lower Extremit: Intact Sensation Left Lower Extremity: Intact Transfers Sit to Stand (QC): 3 (min assist with cues forhand placement) Gait Does the Patient Walk?: Yes Mode of Locomotion: Walk Walk 10 feet (QC): 4 Walk 50 ft with 2 Turns(QC): 4 Gait Assistive Device: FWW Comments/Gait Description CGA for safety. Balance Sitting Static: Good Sitting Dynamic: Good Standing Static: Fair Standing Dynamic: Fair Treatment Pt up in chair post treatment with needs met. Assessment/Needs Pt presents with gross functional weakness that impairs transfers and gait. She will benefit from skilled PT to address functional mobiltiy to allow her to return home as before. 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 Goals PT Assisted Goals Time Frame: Nov 26, 2019 Sit to Lying (QC): 6 Lying-Sitting on Side/Bed(QC): 6 Sit to Stand (QC): 6 Walk 50ft with 2 Turns (QC): 6 Walk 150 ft (QC): 6 PT Plan Problem List Problem List: Activity Tolerance, Functional Strength, Safety, Balance, Gait, Transfer, Bed Mobility Treatment/Plan Treatment Plan: Continue Plan of Care Treatment Plan: Bed Mobility, Education, Functional Activity Tawanna, Functional Strength, Gait, Safety, Therapeutic Exercise, Transfers Treatment Duration: Nov 26, 2019 Frequency: 6 times per week Estimated Hrs Per Day: .25 hour per day Patient and/or Family Agrees t: Yes Safety Risks/Education Patient Education: Transfer Techniques Teaching Recipient: Patient Teaching Methods: Discussion Response to Teaching: Reinforcement Needed Discharge Recommendations Therapy Discharge Recommendati: Post Acute PT Time/GCodes Time In: 1110 Time Out: 1125 Total Billed Treatment Time: 15 Total Billed Treatment visit EVL 15 BRIANNA ROGERS PT Nov 19, 2019 13:47
[2019-11-19 13:51] LABS: BUN/CREATININE RATIO 12; CALCIUM 8.5 MG/DL (8.5-10.1); CARBON DIOXIDE 31 MMOL/L (21-32); CHLORIDE 106 MMOL/L (98-107); CREATININE SERUM 0.68 MG/DL (0.60-1.30); GFR ESTIMATED > 60; GLUCOSE 102 MG/DL (70-105); POTASSIUM 3.7 MMOL/L (3.6-5.0); SODIUM 143 MMOL/L (135-145)
--- NOTE | 2019-11-19 17:05 | Progress Note - Cardiology ---
Cardiology SOAP Progress Note Subjective: No cp or palp or syncope Shortness of breath improved but not resolved Persistent cough, mostly non-productive Gen malaise No n/v/d Objective: I&O/Vital Signs 11/19/19 11/19/19 11/19/19 11/19/19 05:07 06:05 06:50 07:00 Pulse 74 69 78 Resp 15 26 B/P (MAP) 138/61 (86) 156/88 (110) Pulse Ox 99 97 O2 Delivery Nasal Cannula Nasal Cannula Nasal Cannula O2 Flow Rate 3.00 3.00 2.00 11/19/19 11/19/19 11/19/19 11/19/19 07:00 07:24 08:00 08:00 Pulse 83 88 Resp 11 30 B/P (MAP) 156/95 (115) 154/76 (102) Pulse Ox 97 98 96 O2 Delivery Nasal Cannula Nasal Cannula Nasal Cannula Nasal Cannula O2 Flow Rate 2.00 2.00 2.00 2.00 11/19/19 11/19/19 11/19/19 11/19/19 08:00 09:00 11:44 12:00 Temp 36.1 36.3 Pulse 97 86 Resp 16 14 B/P (MAP) 144/99 (114) 107/87 (94) Pulse Ox 98 97 96 O2 Delivery Nasal Cannula Nasal Cannula Nasal Cannula O2 Flow Rate 2.00 2.00 2.00 11/19/19 11/19/19 11/19/19 11/19/19 12:00 13:00 15:04 16:00 Temp 37.0 Pulse 86 100 Resp 16 B/P (MAP) 139/84 (102) Pulse Ox 99 O2 Delivery Nasal Cannula Nasal Cannula Nasal Cannula O2 Flow Rate 2.00 2.00 2.00 11/19/19 16:17 Pulse Ox 97 O2 Delivery Nasal Cannula O2 Flow Rate 2.00 11/19/19 00:00 Intake Total 2350 ml Output Total 1725 ml Balance 625 ml Constitutional: AAO x 3, well-developed, well-nourished Respiratory: No accessory muscle use; other (good, bilat air entry; basal coarse crackles) Cardiovascular: irregularly irregular, S1 and S2, systolic murmur (soft MAGDALENE at card base) Gastrointestional: No tender; soft; No guarding, No rebound; audible bowel sounds Extremities: No clubbing, No cyanosis, No significant edema Neurologic/Psychiatric: oriented x 3, other (seems to move all limbs equally, power somewhat diminished on the L) Skin: normal color, warm/dry; No rash on exposed areas, No ulcerations on exposed areas Results/Procedures: Labs Laboratory Tests 11/19/19 03:23: White Blood Count 3.8L, Red Blood Count 3.60L, Hemoglobin 10.4L, Hematocrit 32L, Mean Corpuscular Volume 89, Mean Corpuscular Hemoglobin 29, Mean Corpuscular Hemoglobin Concent 33, Red Cell Distribution Width 14.8H, Platelet Count 163, Mean Platelet Volume 9.7, Neutrophils (%) (Auto) 44, Lymphocytes (%) (Auto) 41, Monocytes (%) (Auto) 15H, Eosinophils (%) (Auto) 1, Basophils (%) (Auto) 0, Neutrophils # (Auto) 1.7L, Lymphocytes # (Auto) 1.5, Monocytes # (Auto) 0.6, Eosinophils # (Auto) 0.0, Basophils # (Auto) 0.0, Prothrombin Time 19.2H, INR Comment 1.5H, Activated Partial Thromboplast Time 66H, Sodium Level 142, Potassium Level 3.3L, Chloride Level 109H, Carbon Dioxide Level 25, Anion Gap 8, Blood Urea Nitrogen 8, Creatinine 0.61, Estimat Glomerular Filtration Rate > 60, BUN/Creatinine Ratio 13, Glucose Level 99, Calcium Level 8.0L, Phosphorus Level 3.0, Magnesium Level 1.8 11/19/19 03:27: Procalcitonin 0.05 11/19/19 13:21: Sodium Level 143, Potassium Level 3.7, Chloride Level 106, Carbon Dioxide Level 31, Anion Gap 6, Blood Urea Nitrogen 8, Creatinine 0.68, Estimat Glomerular Filtration Rate > 60, BUN/Creatinine Ratio 12, Glucose Level 102, Calcium Level 8.5 Microbiology 11/17/19 MRSA Screen - Final, Complete MRSA not isolated 11/17/19 Blood Culture - Preliminary, Resulted No growth 11/17/19 Urine Culture - Final, Complete 3 or more isolates Laboratory Tests 11/18/19 03:37 11/19/19 03:23 11/19/19 13:21 A/P: Assessment: Influenza A NSTEMI CAD. Last cath in on 01/27/17: 3.5x38 Synergy stent to mid RCA, 4.0x38 Synergy stent to prox RCA, 3x16 Synergy stent to mid LAD, 3.5x28 Synergy stent to prox LAD, 2.0x12 balloon angioplasty to Diag Chronic A Fib S/p Medtronic dual chamber pacemaker in 2017 at ([facility] - [facility]) Chronic warfarin anticoag Carotid art dz. 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 She does not recall the date of her stroke Gen weakness and limited ambulation Poor memory Plan: * Treat with ASA and warfarin and bb and statin * We recommend repeat card cath, given her known CAD and evidence of ACS during this hosp. I have reviewed the rationale, procedure, risks, benefits, potential complications, and alternative of card cath and possible ad hoc cor intervention with her. She wishes to proceed but not before tomorrow because is expecting some family members to be here for the procedure tomorrow * Treatment of flu is with the Hospitalist service ANDREINA LEAHY MD FACP FAC CCDS Nov 19, 2019 17:05
[2019-11-19] MEDS: warFARin 2 MG (COUMADIN) TAB PO SCH (17:46)
[2019-11-20] VITALS (12 sets, daily range): BP systolic 91–182; BP diastolic 64–91
[2019-11-20] MEDS: RT-ALBUTEROL/IPRATROPIUM 3 ML (DUONEB) VIAL INH SCH ×4 (02:06→15:20)
[2019-11-20 04:06] LABS: BASOPHILS % (AUTO) 0 % (0-10); EOSINOPHILS # (AUTO) 0.1 10^3/uL (0.0-0.3); EOSINOPHILS % (AUTO) 2 % (0-10); HEMATOCRIT 37 % (35-52); HEMOGLOBIN 11.7 G/DL (11.5-16.0); LYMPHOCYTES # (AUTO) 1.6 X 10^3 (1.0-4.0); LYMPHOCYTES % (AUTO) 33 % (12-44); MEAN CORPUSCULAR HEMOGLOBIN 29 PG (25-34); MEAN CORPUSCULAR HGB CONC 32 G/DL (32-36); MEAN CORPUSCULAR VOLUME 91 FL (80-99); MEAN PLATELET VOLUME 9.3 FL (7.4-10.4); MONOCYTES # (AUTO) 0.5 X 10^3 (0.0-1.0); MONOCYTES % (AUTO) 11 % (0-12); NEUTROPHILS # (AUTO) 2.6 X 10^3 (1.8-7.8); NEUTROPHILS % (AUTO) 54 % (42-75); PLATELET COUNT 165 10^3/uL (130-400); WHITE BLOOD COUNT 4.8 10^3/uL (4.3-11.0)
[2019-11-20 04:19] LABS: INR 1.7 (0.8-1.4); PROTHROMBIN TIME PATIENT 20.4 SEC (12.2-14.7)
[2019-11-20 04:24] LABS: BUN/CREATININE RATIO 15; CALCIUM 8.8 MG/DL (8.5-10.1); CARBON DIOXIDE 22 MMOL/L (21-32); CHLORIDE 108 MMOL/L (98-107); CREATININE SERUM 0.66 MG/DL (0.60-1.30); GFR ESTIMATED > 60; GLUCOSE 101 MG/DL (70-105); MAGNESIUM 1.7 MG/DL (1.6-2.4); POTASSIUM 3.8 MMOL/L (3.6-5.0); SODIUM 141 MMOL/L (135-145)
[2019-11-20] MEDS ORDERED: LEVOFLOXACIN 750 MG/D5W 150 ML PRE-MIX IV SCH (05:00)
[2019-11-20] MEDS: ENOXAPARIN 80 MG/0.8 ML (LOVENOX) SYR SC SCH (06:19)
[2019-11-20] MEDS: CYANOCOBALAMIN 1,000 MCG (VITAMIN B-12) TABLET PO SCH (06:19)
--- NOTE | 2019-11-20 07:58 | Diagnostic Imaging Report ---
Indication: Respiratory distress Portable chest 4:13 AM There are some faint bilateral perihilar infiltrates. This is improved substantially compared to the previous day. Patient has a dual-chamber pacemaker. There are no effusions. IMPRESSION: Marked interval improvement of the bilateral perihilar infiltrates compared to the previous day. Dictated by: Dictated on workstation # [id number]
[2019-11-20] MEDS ORDERED: CEFEPIME 2 GM (MAXIPIME) VIAL ONE (08:15)
[2019-11-20] MEDS ORDERED: WATER (STERILE) FOR INJECTION 20 ML ONE (08:15)
[2019-11-20] MEDS: meTOprolol TARTRATE 50 MG (LOPRESSOR) TAB PO SCH ×2 (08:26→21:23)
[2019-11-20] MEDS: OSELTAMIVIR 30 MG (TAMIFLU) CAPSULE PO SCH ×2 (08:26→21:23)
[2019-11-20] MEDS: CEFEPIME INJECTION 2,000 MG in WATER (STERILE) FOR INJECTION 20 ML IV SCH (08:26)
--- NOTE | 2019-11-20 08:49 | Pulmonary Progress Note ---
Subjective Time Seen by a Provider: 08:43 Subjective/Events-last exam No complications noted. Sepsis Event Evaluation Height, Weight, BMI Height: '" Weight: lbs. oz. kg; 27.73 BMI Method: Focused Exam Time of Focused Exam: 04:54 Exam Exam Vital Signs Date Time Temp Pulse Resp B/P (MAP) Pulse Ox O2 Delivery O2 Flow Rate FiO2 11/20/19 08:05 98 Nasal Cannula 2.00 11/20/19 07:35 36.8 88 20 182/87 (118) 98 Nasal Cannula 2.00 11/20/19 07:00 87 11/20/19 04:00 36.8 93 18 118/85 (96) 97 Nasal Cannula 2.00 11/20/19 02:09 97 Nasal Cannula 2.00 11/20/19 01:00 94 11/19/19 23:59 37.0 104 16 136/68 (90) 98 Nasal Cannula 2.00 11/19/19 21:53 93 Nasal Cannula 2.00 11/19/19 20:00 37.4 97 14 120/71 (87) 97 Nasal Cannula 2.00 11/19/19 20:00 Nasal Cannula 2.00 11/19/19 19:00 91 11/19/19 18:51 94 Nasal Cannula 2.00 11/19/19 16:17 97 Nasal Cannula 2.00 11/19/19 16:00 37.0 100 16 139/84 (102) 99 Nasal Cannula 2.00 11/19/19 15:04 Nasal Cannula 2.00 11/19/19 13:00 86 11/19/19 12:00 Nasal Cannula 2.00 11/19/19 12:00 36.3 86 14 107/87 (94) 96 Nasal Cannula 2.00 11/19/19 11:44 97 Nasal Cannula 2.00 11/19/19 09:00 97 16 144/99 (114) 98 Nasal Cannula 2.00 I & O 11/20/19 07:00 Intake Total 1200 ml Output Total 4050 ml Balance -2850 ml Height & Weight Height: '" Weight: lbs. oz. kg; 27.73 BMI Method: General Appearance: No Apparent Distress, WD/WN, Chronically ill HEENT: PERRL/EOMI, TMs Normal, Normal ENT Inspection, Pharynx Normal, Moist Mucous Membranes Neck: Full Range of Motion, Normal Inspection, Non Tender, Supple, Carotid Bruit Respiratory: Chest Non Tender, Lungs Clear, No Accessory Muscle Use, No Respiratory Distress, Decreased Breath Sounds Cardiovascular: Regular Rate, Rhythm, No Edema, No Gallop, No JVD, No Murmur, Normal Peripheral Pulses Capillary Refill: Less Than 3 Seconds Peripheral Pulses: 1+ Dorsalis Pedis (R), 1+ Left Dors-Pedis (L); 2+ Radial Pulses (R), 2+ Radial Pulses (L) Gastrointestinal: normal bowel sounds, non tender, soft Extremity: Normal Capillary Refill, Normal Inspection, Normal Range of Motion, Non Tender, No Calf Tenderness, No Pedal Edema Neurologic/Psychiatric: Alert, Oriented x3, No Motor/Sensory Deficits, Normal Mood/Affect Skin: Normal Color, Warm/Dry Lymphatic: No Adenopathy Results Lab Laboratory Tests 11/19/19 03:23 11/19/19 13:21 11/20/19 03:55 Assessment/Plan Assessment/Plan Influenza -Tamiflu Hypoxia with interstitial infiltrates r/o PNA-- failed out pt tx with unknown Abx -change Cefepime to PO Omnicef x 3days then D/C hx of Afib -coumadin per cardiac dosing -On Lovenox until Coumadin is therapeutic MOISÉS JACINTO DO Nov 20, 2019 08:49
[2019-11-20] MEDS: CEFDINIR 300 MG (OMNICEF) CAP PO SCH ×2 (09:03→21:23)
--- NOTE | 2019-11-20 11:15 | Progress Note - Hospitalist ---
ISAIAH SU, MEDICAL STUDENT 11/20/19 1115: Subjective HPI/CC On Admission Date Seen by Provider: Nov 20, 2019 Time Seen by Provider: 10:00 Influenza + NSTEMI Subjective/Events-last exam Patient is doing well and has had no trouble breathing Describes improving cough No pain Heart Cath today - patient anxious Focused Exam Time of Focused Exam: 04:54 Objective Exam Vital Signs Vital Signs Date Time Temp Pulse Resp B/P (MAP) Pulse Ox O2 Delivery O2 Flow Rate FiO2 11/20/19 08:45 98 Nasal Cannula 2.00 96 11/20/19 07:35 36.8 88 20 182/87 (118) Capillary Refill : Less Than 3 Seconds General Appearance: No Apparent Distress, Anxious HEENT: PERRL/EOMI, Normal ENT Inspection Neck: Full Range of Motion, Normal Inspection, Non Tender Respiratory: Chest Non Tender, Lungs Clear, No Respiratory Distress Cardiovascular: Regular Rate, Rhythm, No Gallop, No JVD Gastrointestinal: Normal Bowel Sounds, No Organomegaly, No Pulsatile Mass Rectal: Deferred Neurologic/Psychiatric: Alert, Oriented x3, No Motor/Sensory Deficits, Normal Mood/Affect, clerk of works II-XII Norm as Tested Results/Procedures Lab Laboratory Tests 11/19/19 13:21 11/20/19 03:55 Patient resulted labs reviewed. Assessment/Plan Assessment and Plan Assess & Plan/Chief Complaint Assessment: Influenza A Acute CHF with elevated BNP Hypoxia new onset NSTEMI AF Pacemaker OAC on Coumadin CAD stents PVD right carotid artery stent Influenza -Tamiflu until 11/21 Hypoxia with interstitial infiltrates r/o PNA-- failed out pt tx with unknown Ab x -change Cefepime to PO Omnicef x 3days then D/C -IVF -Jaquez cultures pending hx of Afib -Pt is on coumadin at home -Start 2mg of coumadin for now Dr. Valenzuela planning for heart cath today Continue B12 Injections as patient normally receives supplementation Clinical Quality Measures DVT/VTE Risk/Contraindication: Risk Factor Score Per Nursin RFS Level Per Nursing on Admit: 4+=Very High TAMARA ANAND DO 11/20/192021: Subjective Subjective/Events-last exam Cardiac cath today at [address] Valenzuela. Bowel treatment will be initiated after she can recover from cardiac cath. Weaned off oxygen. Still coughing quite a bit. Inpatient rehab evaluation, will have to submit to insurance. Review of Systems General: Fatigue Pulmonary: Dyspnea, Cough Objective Exam General Appearance: No Apparent Distress, WD/WN, Anxious, Chronically ill Respiratory: Chest Non Tender, Lungs Clear, Normal Breath Sounds, No Accessory Muscle Use, No Respiratory Distress Cardiovascular: No Edema, No Gallop, No JVD, No Murmur, Normal Peripheral Pulses, Irregularly Irregular Neurologic/Psychiatric: Alert, Oriented x3, No Motor/Sensory Deficits, Normal Mood/Affect Assessment/Plan Assessment and Plan Assess & Plan/Chief Complaint Cath today Monitor closely Diagnosis/Problems Diagnosis/Problems (1) Hypoxia Status: Acute (2) Nausea and vomiting Status: Acute Qualifiers: Qualified Codes: R11.2 - Nausea with vomiting, unspecified (3) Influenza Status: Acute (4) Atrial fibrillation (5) CAD (coronary artery disease) (6) PVD (peripheral vascular disease) (7) Pacemaker (8) NSTEMI (non-ST elevated myocardial infarction) (9) Elevated brain natriuretic peptide (BNP) level (10) Anticoagulated on Coumadin (11) History of right common carotid artery stent placement Supervisory-Addendum Brief Verification & Attestation Participated in pt care: history, MDM, physical Personally performed: exam, history, MDM, supervision of care Care discussed with: Medical Student Procedures: n/a Results interpretation: Verified all documentation Verification and Attestation of Medical Student E/M Service A medical student performed and documented this service in my presence. I reviewed and verified all information documented by the medical student and made modifications to such information, when appropriate. I personally performed the physical exam and medical decision making. Tamara Anand, Nov 20, 2019,20:22 ISAIAH SU, MEDICAL STUDENT Nov 20, 2019 11:15 TAMARA ANAND DO Nov 20, 2019 20:22
--- NOTE | 2019-11-20 11:21 | Occupational Ther Daily Note ---
OT Current Status-Daily Note Subjective Pt laying in bed at start of session, and nurse present. Pt agreeable to OT tx, stating she is getting a heart cath this afternoon. Mental Status/Objective Patient Orientation: Normal For Age Attachments: Telemetry ADL-Treatment Therapy Code Descriptions/Definitions Functional [place] Measure: 0=Not Assessed/NA 4=Minimal Assistance 1=Total Assistance 5=Supervision or Setup 2=Maximal Assistance 6=Modified [place] 3=Moderate Assistance 7=Complete IndependenceSCALE: Activities may be completed with or without assistive devices. 6-Lwmjnjakmh-qvqtzgd completes the activity by him/herself with no assistance from a helper. 5-Set-up or Clean-up Assistance-helper sets up or cleans up; patient completes activity. [place] assists only prior to or following the activity. 4-Supervision or Touching Assistance-helper provides verbal cues and/or touching/steadying and/or contact guard assistance as patient completes activity. Assistance may be provided throughout the activity or intermittently. 3-Partial/Moderate Assistance-helper does LESS THAN HALF the effort. [place] lifts, holds or supports trunk or limbs, but provides less than half the effort. 2-Substantial/Maximal Assistance-helper does MORE THAN HALF the effort. [place] lifts or holds trunk or limbs and provides more than half the effort. 9-Lrokmhtyl-qylcjx does ALL the effort. Patient does none of the effort to complete the activity. Or, the assistance of 2 or more helpers is required for the patient to complete the activity. If activity was not attempted, code reason: 7-Patient Refused. 9-Not Applicable-not attempted and the patient did not perform the activity before the current illness, exacerbation or injury. 10-Not Attempted due to Environmental Limitations-(lack of equipment, weather restraints, etc.). 88-Not Attempted due to Medical Conditions or Safety Concerns. Other Treatment Pt agreed to OT tx this AM, stating she didn't know what occupational therapy was. OT educated pt on the purpose and benefits of OT while she is in the hospital. Pt stated she needed to scoot up in bed, OT assisted pt with hand position and foot positioning in order to scoot up herself in bed. Pt reported her right shoulder doesn't work well, OT educated pt on using her right arm and legs to scoot up. She was able to scoot up towards HOB with cues and assist with positioning. OT then educated pt on BUE exercises, including wrist flexion/extension, elbow flexion/extension, and shoulder flexion/extension. Pt verbalized understanding, completing x3 reps each. Post OT session, pt laying in bed, call light in reach and all needs met with present. Education OT Patient Education: Correct positioning, Energy conservation, Exercise program, Modified ADL techniques, Progress toward Goal/Update tx plan, Purpose of tx/functional activities Teaching Recipient: Patient, Family Teaching Methods: Discussion Response to Teaching: Verbalize Understanding OT Alteration Specialist Goals Fdc Goals Time Frame: Nov 26, 2019 Eating (QC): 6 Oral Hygiene (QC): 6 Toileting Hygiene (QC): 6 Shower/Bathe Self (QC): 6 Upper Body Dressing (QC): 6 Lower Body Dressing (QC): 6 On/Off Footwear (QC): 6 Additional Goals: 1-Demonstrate ADL Tasks, 2-Verbalize Understanding, 3- ImproveStrength/Tawanna 1=Demonstrate adherence to instructed precautions during ADL tasks. 2=Patient will verbalize/demonstrate understanding of assistive devices/modifications for ADL. 3=Patient will improve strength/tolerance for activity to enable patient to perform ADL's. OT Education/Plan Problem List/Assessment Assessment: Decreased Activ Tolerance, Decreased UE Strength, Impaired I ADL's, Impaired Self-Care Skills Discharge Recommendations Plan/Recommendations: Continue POC Treatment Plan/Plan of Care Treatment,Training & Education: Yes Patient would benefit from OT for education, treatment and training to promote independence in ADL's, mobility, safety and/or upper extremity function for ADL's. Plan of Care: ADL Retraining, Functional Mobility, UE Funct Exercise/Act Treatment Duration: Nov 26, 2019 Frequency: 5 times per week Estimated Hrs Per Day: .25 hour per day Agreement: Yes 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: Good Time/GCodes Start Time: 10:48 Stop Time: 10:58 Total Time Billed (hr/min): 10 Billed Treatment Time 1ADORE ADDISON OT Nov 20, 2019 11:21
[2019-11-20] MEDS ORDERED: LIDOCAINE 1% INJ 20 ML 20 ML VIAL ONE ×2 (13:03→17:46)
[2019-11-20] MEDS ORDERED: HEParin (CATH LAB) 2,000 ML IV ONE (13:03)
--- NOTE | 2019-11-20 13:13 | Progress Note - Cardiology ---
Cardiology SOAP Progress Note Subjective: Cough still persistent Shortness of breath improved No recurrence of cp No n/v/d Gen weakness and malaise present Objective: I&O/Vital Signs 11/20/19 11/20/19 11/20/19 11/20/19 02:09 04:00 07:00 07:35 Temp 36.8 36.8 Pulse 93 87 88 Resp 18 20 B/P (MAP) 118/85 (96) 182/87 (118) Pulse Ox 97 97 98 O2 Delivery Nasal Cannula Nasal Cannula Nasal Cannula O2 Flow Rate 2.00 2.00 2.00 11/20/19 11/20/19 11/20/19 11/20/19 08:05 08:45 12:09 12:49 Pulse 104 Pulse Ox 98 98 91 O2 Delivery Nasal Cannula Nasal Cannula Nasal Cannula O2 Flow Rate 2.00 2.00 2.00 FiO2 96 11/20/19 00:00 Intake Total 800 ml Output Total 625 ml Balance 175 ml Constitutional: AAO x 3, well-developed, well-nourished Respiratory: No accessory muscle use; other (good, bilat air entry; basal coarse crackles) Cardiovascular: irregularly irregular, S1 and S2, systolic murmur (soft MAGDALENE at card base) Gastrointestional: No tender; soft; No guarding, No rebound; audible bowel s ounds Extremities: No clubbing, No cyanosis, No significant edema Neurologic/Psychiatric: oriented x 3, other (seems to move all limbs equally, power somewhat diminished on the L) Skin: normal color, warm/dry; No rash on exposed areas, No ulcerations on exposed areas Results/Procedures: Labs Laboratory Tests 11/19/19 13:21: Sodium Level 143, Potassium Level 3.7, Chloride Level 106, Carbon Dioxide Level 31, Anion Gap 6, Blood Urea Nitrogen 8, Creatinine 0.68, Estimat Glomerular Filtration Rate > 60, BUN/Creatinine Ratio 12, Glucose Level 102, Calcium Level 8.5 11/20/19 03:55: Sodium Level 141, Potassium Level 3.8, Chloride Level 108H, Carbon Dioxide Level 22, Anion Gap 11, Blood Urea Nitrogen 10, Creatinine 0.66, Estimat Glomerular Filtration Rate > 60, BUN/Creatinine Ratio 15, Glucose Level 101, Calcium Level 8.8, White Blood Count 4.8, Red Blood Count 4.08L, Hemoglobin 11.7, Hematocrit 37, Mean Corpuscular Volume 91, Mean Corpuscular Hemoglobin 29, Mean Corpuscular Hemoglobin Concent 32, Red Cell Distribution Width 15.0H, Platelet Count 165, Mean Platelet Volume 9.3, Neutrophils (%) (Auto) 54, Lymphocytes (%) (Auto) 33, Monocytes (%) (Auto) 11, Eosinophils (%) (Auto) 2, Basophils (%) (Auto) 0, Raul trophils # (Auto) 2.6, Lymphocytes # (Auto) 1.6, Monocytes # (Auto) 0.5, Eosinophils # (Auto) 0.1, Basophils # (Auto) 0.0, Prothrombin Time 20.4H, INR Comment 1.7H, Phosphorus Level 3.0, Magnesium Level 1.7 Microbiology 11/17/19 MRSA Screen - Final, Complete MRSA not isolated 11/17/19 Blood Culture - Preliminary, Resulted No growth 11/17/19 Urine Culture - Final, Complete 3 or more isolates Laboratory Tests 11/19/19 03:23 11/19/19 13:21 11/20/19 03:55 A/P: Assessment: Influenza A NSTEMI CAD. Last cath in on 01/27/17: 3.5x38 Synergy stent to mid RCA, 4.0x38 Synergy stent to prox RCA, 3x16 Synergy stent to mid LAD, 3.5x28 Synergy stent to prox LAD, 2.0x12 balloon angioplasty to Diag Chronic A Fib S/p Medtronic dual chamber pacemaker in 2017 at ([facility] - Dr [facility]) Chronic warfarin anticoag Carotid art dz. 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 She does not recall the date of her stroke Gen weakness and limited ambulation Poor memory Plan: * Treat with ASA and warfarin and bb and statin * We recommend repeat card cath, given her known CAD and evidence of ACS during this hosp. I have reviewed the rationale, procedure, risks, benefits, potential complications, and alternative of card cath and possible ad hoc cor intervention with her. She provides informed consent * Treatment of flu is with the Hospitalist service ANDREINA LEAHY MD FACP [facility] CCDS Nov 20, 2019 13:13
[2019-11-20] MEDS ORDERED: ASPIRIN 81 MG CHEW (CHILDREN'S ASA) PO NR (13:55)
--- NOTE | 2019-11-20 15:08 | Physical Therapy Daily Note ---
PT Daily Note-Current Subjective Pt. in bed, agrees to Rx. States she would like to sit up in chair after Rx. Pain Location: No Pain Reported Mental Status Patient Orientation: Normal For Age Transfers SCALE: Activities may be completed with or without assistive devices. 7-Ssogitxtea-llpikqf completes the activity by him/herself with no assistance from a helper. 5-Set-up or Clean-up Assistance-helper sets up or cleans up; patient completes activity. [place] assists only prior to or following the activity. 4-Supervision or Touching Assistance-helper provides verbal cues and/or touching/steadying and/or contact guard assistance as patient completes activity. Assistance may be provided throughout the activity or intermittently. 3-Partial/Moderate Assistance-helper does LESS THAN HALF the effort. [place] lifts, holds or supports trunk or limbs, but provides less than half the effort. 2-Substantial/Maximal Assistance-helper does MORE THAN HALF the effort. [place] lifts or holds trunk or limbs and provides more than half the effort. 0-Zhjyoohop-wxfhlj does ALL the effort. Patient does none of the effort to co mplete the activity. Or, the assistance of 2 or more helpers is required for the patient to complete the activity. If activity was not attempted, code reason: 7-Patient Refused. 9-Not Applicable-not attempted and the patient did not perform the activity before the current illness, exacerbation or injury. 10-Not Attempted due to Environmental Limitations-(lack of equipment, weather restraints, etc.). 88-Not Attempted due to Medical Conditions or Safety Concerns. out of bed CGA, sit to stand min assist Weight Bearing Right Lower Extremity: Right Weight Bearing/Tolerated Left Lower Extremity: Left Weight Bearing/Tolerated Gait Training Does the Patient Walk?: Yes Gait Assistive Device: FWW 40ftx4 CGA FWW , no LOB, c/o fatigue during gait Exercises Seated Therapy Exercises: Ankle pumps, Sit to stand, Long arc quads, Hip flexion, Hip abd/add Seated Reps: 12 Treatments up in chair after Rx, munoz at hand Assessment Current Status: Good Progress PT Clinical Research Administrator Goals Fdc Goals PT Clinical Research Administrator Goals Time Frame: Nov 26, 2019 Sit to Lying (QC): 6 Lying-Sitting on Side/Bed(QC): 6 Sit to Stand (QC): 6 Walk 50ft with 2 Turns (QC): 6 Walk 150 ft (QC): 6 PT Plan Treatment/Plan Treatment Plan: Continue Plan of Care Treatment Plan: Bed Mobility, Education, Functional Activity [place], Functional Strength, Gait, Safety, Therapeutic Exercise, Transfers Treatment Duration: Nov 26, 2019 Frequency: 6 times per week Estimated Hrs Per Day: .25 hour per day Patient and/or Family Agrees t: Yes Safety Risks/Education Patient Education: Gait Training, Transfer Techniques, Correct Positioning, Dis ease Process, Safety Issues Teaching Recipient: Patient Teaching Methods: Demonstration, Discussion Response to Teaching: Verbalize Understanding, Return Demonstration, Reinforcement Needed Time/GCodes Time In: 1130 Time Out: 1150 Total Billed Treatment Time: 20 Total Billed Treatment 1,GT20m ALEISHA JMAES MAINFRAME SYSTEMS ENGINEER Nov 20, 2019 15:08
[2019-11-20] MEDS ORDERED: fentaNYL INJECTION 100 MCG/2 ML AMP ONE (15:17)
[2019-11-20] MEDS ORDERED: MIDAZOLAM 5 MG/5 ML (VERSED) VIAL ONE (15:17)
--- NOTE | 2019-11-20 15:30 | NUR ---
PT TO [facility]ART [facility]ENTER VIA BED ACCOMPANIED BY HEART CENTER STAFF AND FAMILY.
--- NOTE | 2019-11-20 15:31 | NUR ---
THE PATIENT AND HER FAMILY ASKED IF THE SCHEDULED [place] SVN BREATHING TREATMENTS COULD BE SWITCHED TO JUST PRN; DR JACINTO WAS ASKED BY THIS RT AND HE SAID THAT THE [place] SVN BREATHING TREATMENTS COULD BE SWITCHED TO PRN ONLY.
[2019-11-20] MEDS ORDERED: NS IV 1000 ML 1,000 ML ONE (15:36)
[2019-11-20] MEDS: NS IV 1000 ML 1,000 ML IV SCH (15:58)
[2019-11-20] MEDS ORDERED: EPTIFIBATIDE BOLUS 20 ML IV ONE (16:08)
[2019-11-20] MEDS ORDERED: HEParin 1000 UNIT/ML (10ML VIAL) FOR BOLUS ONE (16:08)
[2019-11-20] MEDS ORDERED: NITRO DRIP 25000 MCG/D5W 250 ML IV ONE (16:13)
[2019-11-20] MEDS ORDERED: CLOPIDOGREL 300 MG (PLAVIX) TABLET PO ONE (17:48)
--- NOTE | 2019-11-20 18:27 | Cardiac Procedure Note-CS/ASA ---
Pre-Procedure Note Pre-Op Procedure Note H&P Reviewed The H&P was reviewed, patient examined and no changes noted. Date H&P Reviewed: Nov 20, 2019 Time H&P Reviewed: 16:00 Conscious Sedation Pre-Proced Time 16:00 ASA Score 3 For ASA 3 and 4: Consider anesthesia and medical clearance. Also, for patients with a history of failed moderate sedation consider anesthesia. Airway Lungs Heart ASA score ASA 1: a normal healthy patient ASA 2: a patient with a mild systemic disease (mid diabetes, controlled hypertension, obesity ASA 3: a patient with a severe systemic disease that limits activity (angina, COPD, prior Myocardial infarction) ASA 4: a patient with an incapacitating disease that is a constant threat to life (CHF, renal failure) ASA 5: a moribund patient not expected to survive 24 hrs. (ruptured aneurysm) ASA 6: a declared brain- patient whose organs are being harvested. For emergent operations, add the letter E after the classification Mallampati Classification Grade 2 Sedation Plan Analgesia, Amnesia, Plan communicated to team members, Discussed options with patient/fam, Discussed risks with patient/fam The patient is an appropriate candidate to undergo the planned procedure, sedation, and anesthesia. The patient immediately re-assessed prior to indication. ANDREINA LEAHY MD FACP FAC CCDS Nov 20, 2019 18:27
[2019-11-20] MEDS ORDERED: NS IV 1000 ML 1,000 ML IV SCH (18:29)
[2019-11-20] MEDS ORDERED: PATIENT MAY USE OWN MEDS, ALL PO SCH (18:30)
[2019-11-20] MEDS ORDERED: ENOXAPARIN 60 MG/0.6 ML (LOVENOX) SYR SC ONE (20:30)
[2019-11-20] MEDS: ACETAMINOPHEN 500 MG TAB (TYLENOL) PO PRN (21:23)
[2019-11-21] VITALS (10 sets, daily range): BP systolic 101–126; BP diastolic 50–79
--- NOTE | 2019-11-21 01:02 | CARDIAC CATHETERIZATION ---
DATE OF SERVICE: 11/20/2019 CARDIAC CATHETERIZATION AND CORONARY INTERVENTION REPORT The patient is an 79-year-old lady, who is known to have coronary artery disease and who was admitted with influenza A and evidence of a small non-ST elevation myocardial infarction. Cardiac catheterization was carried out today after having obtained informed consent. DESCRIPTION OF PROCEDURE: She was brought to the cardiac catheterization laboratory in a fasting state. Right groin was prepared and draped in the usual sterile fashion. Lidocaine 1% was used for local anesthesia. Modified Seldinger technique was used to advance a 5-Faroese sheath in the right femoral artery. 5-Faroese JL4 catheter for left coronary angiography, 5-Faroese JR4 catheter for right coronary angiography, 5-Faroese pigtail catheter was used for left heart catheterization and left ventricular angiography. Pigtail catheter was also used to perform aortic root angiography. Aortic root angiography was performed because we were not able to engage the right coronary artery selectively with the JR4 catheter. Following aortic root angiography, we were able to selectively engage the right coronary artery with a Adria's right catheter. PERCUTANEOUS INTERVENTION TO THE LEFT ANTERIOR DESCENDING: Following completion of the diagnostic procedure, we carried out percutaneous intervention of the left anterior descending artery, which was completely occluded in its mid and distal portions following the origin of a small caliber diagonal branch that was exhibiting 99% stenosis, as well. We exchanged the sheath over a wire for a 7-Faroese sheath. We used a 7-Faroese JL4 guide catheter to engage the left coronary artery. We were not able to advance a ChoICE floppy wire to cross the chronic total occlusion of the left anterior descending. We removed the wire and used a Whisper medium support wire. With considerable difficulty, we were able to advance it across the entire occluded segment of the occlusion in the left anterior descending artery. The occlusion was primarily within a previously stented segment. The tip was placed in the distal vessel. We were then not able to advance a balloon across the very distal part of the lesion. We were using a 1.5 x 15 mm balloon. We did carry out balloon angioplasty with this balloon in the mid and proximal segments of the complete occlusion and then removed the balloon. To cross the very distal portion of the lesion, we decided to use a 300 cm wire to enable us to have more choice of equipment. We kept the Whisper wire as a winston wire and advanced a 300 cm BMW wire across the lesion with considerable difficulty and were able to place in the distal vessel. Over this wire, we advanced a 2.0 x 15 mm balloon. We were able to finally get across the distal lesion and we carried out balloon angioplasty from the distal part of the occlusion all the way up to the proximal part of the total occlusion. We were able to now see antegrade flow all the way down to the distal left anterior descending, although the flow was sluggish. We removed the balloon and then advanced a 3.0 x 30 mm balloon and carried out balloon angioplasty with this through the entire segment that was previously occluded. We gave a total of 200 mcg of intracoronary nitroglycerin. This did restore antegrade flow all the way down to the apical termination of the left anterior descending and the flow had improved from CODY 0 to CODY 3. A small caliber second diagonal branch has 99% ostial stenosis. We did try to wire this, but this artery is jailed and we were not able to advance a wire into this artery despite multiple attempts and multiple wires. At this point, we decided to hold off on any further intervention, given that antegrade flow had been established in the left anterior descending and the patient had a considerable amount of dye and fluoroscopic radiation exposure. We had carried out angiography of the right femoral artery through the sheath at the beginning of the procedure. At the end of the procedure, following removal of the angioplasty equipment, we used Mynx to achieve hemostasis. HEMODYNAMICS: Left ventricular end-diastolic pressure following coronary angiography was 10 mmHg. There is no significant pressure gradient on pullback across the aortic valve. Ascending aortic pressure was 91/54 with a mean of 66 mmHg. CORONARY ANGIOGRAPHY: Diffuse coronary calcification is seen. Left anterior descending and right coronary arteries are extensively stented. Left anterior descending artery was completely occluded within the stented segment and 3/4 of the stented segment is included in the occlusion. To this, successful balloon angioplasty was carried out with reduced stenosis to less than 50% and establishment of normal antegrade flow. A small caliber diagonal branch has 99% ostial stenosis. We could not wire this because the artery is jailed by the stent and wires would not advance. The left circumflex artery has 90% stenosis in the proximal portion of its first obtuse marginal branch. This was not intervened on. The right coronary artery is dominant and is extensively stented throughout its proximal, mid and distal portions up to approximately the origin of the posterior descending branch. There are stenoses up to 50% within the stented segment. No significant left to right collaterals were seen. LEFT VENTRICULAR ANGIOGRAPHY: Left ventricular angiography was carried out in the right anterior oblique projection. There is hypokinesis of the anterolateral and apical angeles. Left ventricular ejection fraction is approximately 45%. CONCLUSIONS: 1. Coronary artery disease, multivessel, consisting of complete occlusion within the distal 3/4 of an extensively stented left anterior descending to which successful balloon angioplasty was carried out with reduction of stenosis to less than 50% and rastafari of normal antegrade flow. A small caliber second diagonal branch is jailed in the stented segment and has 90% ostial stenosis. The first obtuse marginal branch, left circumflex artery has 90% proximal stenosis. The right coronary artery is extensively stented and has up to 50% stenoses within the stented segment. The patient's stents are known to be Synergy 4.0 x 38 and 3.5 x 38 in the right coronary, and Synergy 3.5 x 28 and 3.0 x 16 in the left anterior descending (done in 01/2017 in [place]). 2. Mild to moderate impairment of global left ventricular systolic function with ejection fraction approximately 45%. 3. Hypokinesis of the anterolateral and apical angeles of the left ventricle. 4. Normal left ventricular end-diastolic pressure. DISCUSSION AND RECOMMENDATIONS: She would need staged angioplasty to the obtuse marginal. Today, we opened up the complete occlusion of the left anterior descending artery, which seemed to be the most important vessel. At a later date, allowing her recovery from today's radiation exposure and intravenous contrast, we will consider percutaneous intervention to the left circumflex obtuse marginal. She has been noncompliant with her coronary medications, including antiplatelet agents. We have advised that she resume them and be compliant with them. Therapy is also recommended with beta blockers and statin agents, as tolerated. She is in atrial fibrillation, which necessitates continuation of therapy with oral anticoagulants. Accordingly, our plan would be to continue warfarin along with an antiplatelet agent. For a few days, we will continue both aspirin and Plavix and then change to Plavix alone. Job ID: [id number] DocumentID: [id number] Dictated Date: 11/20/2019 18:14:13 Industrial Sales Engineer Date: 11/20/2019 23:52:56 Dictated By: ANDREINA LEAHY MD, MA, FACP, FACC, [facility]
[2019-11-21] MEDS: NS IV 1000 ML 1,000 ML IV SCH ×3 (03:15→22:25)
[2019-11-21 04:10] LABS: BASOPHILS % (AUTO) 0 % (0-10); EOSINOPHILS % (AUTO) 1 % (0-10); HEMATOCRIT 28 % (35-52); HEMOGLOBIN 8.9 G/DL (11.5-16.0); LYMPHOCYTES # (AUTO) 0.8 X 10^3 (1.0-4.0); LYMPHOCYTES % (AUTO) 21 % (12-44); MEAN CORPUSCULAR HEMOGLOBIN 28 PG (25-34); MEAN CORPUSCULAR HGB CONC 32 G/DL (32-36); MEAN CORPUSCULAR VOLUME 89 FL (80-99); MEAN PLATELET VOLUME 9.8 FL (7.4-10.4); MONOCYTES # (AUTO) 0.5 X 10^3 (0.0-1.0); MONOCYTES % (AUTO) 13 % (0-12); NEUTROPHILS # (AUTO) 2.7 X 10^3 (1.8-7.8); NEUTROPHILS % (AUTO) 66 % (42-75); PLATELET COUNT 187 10^3/uL (130-400); RED CELL DISTRIBUTION WIDTH 14.5 % (10.0-14.5); WHITE BLOOD COUNT 4.1 10^3/uL (4.3-11.0)
[2019-11-21 04:13] LABS: INR 2.1 (0.8-1.4); PROTHROMBIN TIME PATIENT 24.7 SEC (12.2-14.7)
[2019-11-21 04:21] LABS: BUN/CREATININE RATIO 17; CALCIUM 8.2 MG/DL (8.5-10.1); CARBON DIOXIDE 27 MMOL/L (21-32); CHLORIDE 107 MMOL/L (98-107); GFR ESTIMATED > 60; GLUCOSE 162 MG/DL (70-105); MAGNESIUM 1.7 MG/DL (1.6-2.4); PHOSPHORUS 3.1 MG/DL (2.3-4.7); POTASSIUM 4.4 MMOL/L (3.6-5.0); SODIUM 141 MMOL/L (135-145)
[2019-11-21] MEDS: CYANOCOBALAMIN 1,000 MCG (VITAMIN B-12) TABLET PO SCH (06:10)
--- NOTE | 2019-11-21 07:47 | Diagnostic Imaging Report ---
INDICATION: Influenza, respiratory failure. COMPARISON: November 20, 2019. TECHNIQUE: Single radiograph of the chest dated November 21, 2019. FINDINGS: Pacer device is again identified with the battery pack overlying the left chest. The cardiac silhouette is mildly enlarged. Perihilar opacities are again identified, appearing slightly improved from the prior examination. No new focal pulmonary opacity. No pleural effusion. No pneumothorax. Osseous structures are stable. IMPRESSION: Improved though persisting bilateral perihilar infiltrates. Remainder of the examination appears stable. Dictated by: Dictated on workstation # [id number]
[2019-11-21] MEDS: CEFDINIR 300 MG (OMNICEF) CAP PO SCH ×2 (08:16→21:28)
[2019-11-21] MEDS: meTOprolol TARTRATE 50 MG (LOPRESSOR) TAB PO SCH ×2 (08:16→21:28)
[2019-11-21] MEDS: OSELTAMIVIR 30 MG (TAMIFLU) CAPSULE PO SCH ×2 (08:16→21:28)
[2019-11-21] MEDS: CLOPIDOGREL 75 MG (PLAVIX) TABLET PO SCH (08:17)
--- NOTE | 2019-11-21 08:50 | Progress Note - Cardiology ---
Cardiology SOAP Progress Note Subjective: Lying in bed. C/O right groin discomfort. No c/o CP or palpitations. C/O more SOB this morning. Objective: I&O/Vital Signs 11/21/19 11/21/19 11/21/19 11/21/19 07:00 08:00 09:00 12:00 Temp 35.9 36.2 Pulse 72 76 80 Resp 18 16 B/P (MAP) 106/73 (84) 126/66 (86) Pulse Ox 96 98 93 O2 Delivery Room Air Nasal Cannula Room Air O2 Flow Rate 2.00 FiO2 96 11/21/19 11/21/19 11/21/19 12:19 12:25 15:39 Temp 36.3 Pulse 61 63 Resp 18 B/P (MAP) 114/50 (71) Pulse Ox 97 98 O2 Delivery Nasal Cannula Nasal Cannula O2 Flow Rate 3.00 3.00 11/21/19 00:00 Intake Total 520 ml Output Total 500 ml Balance 20 ml Side: right Condition: DP/PT pulses palpable, extremity w/d/p Bruising: moderated bruising Constitutional: AAO x 3, well-developed, well-nourished Respiratory: No accessory muscle use; other (good, bilat air entry; basal coarse crackles) Cardiovascular: irregularly irregular, S1 and S2, systolic murmur (soft MAGDALENE at card base) Gastrointestional: No tender; soft; No guarding, No rebound; audible bowel sounds Extremities: No clubbing, No cyanosis, No significant edema Neurologic/Psychiatric: oriented x 3, other (seems to move all limbs equally, p ower somewhat diminished on the L) Skin: normal color, warm/dry; No rash on exposed areas, No ulcerations on exposed areas Results/Procedures: Labs Laboratory Tests 11/21/19 03:45: White Blood Count 4.1L, Red Blood Count 3.15L, Hemoglobin 8.9#L, Hematocrit 28L, Mean Corpuscular Volume 89, Mean Corpuscular Hemoglobin 28, Mean Corpuscular Hemoglobin Concent 32, Red Cell Distribution Width 14.5, Platelet Count 187, Mean Platelet Volume 9.8, Neutrophils (%) (Auto) 66, Lymphocytes (%) (Auto) 21, Monocytes (%) (Auto) 13H, Eosinophils (%) (Auto) 1, Basophils (%) (Auto) 0, Neutrophils # (Auto) 2.7, Lymphocytes # (Auto) 0.8L, Monocytes # (Auto) 0.5, Eosinophils # (Auto) 0.0, Basophils # (Auto) 0.0, Prothrombin Time 24.7H, INR Comment 2.1H, Sodium Level 141, Potassium Level 4.4, Chloride Level 107, Carbon Dioxide Level 27, Anion Gap 7, Blood Urea Nitrogen 12, Creatinine 0.70, Estimat Glomerular Filtration Rate > 60, BUN/Creatinine Ratio 17, Glucose Level 162H, Calcium Level 8.2L, Phosphorus Level 3.1, Magnesium Level 1.7 11/21/19 14:45: White Blood Count 4.4, Red Blood Count 2.86L, Hemoglobin 8.1L, Hematocrit 25L, Mean Corpuscular Volume 89, Mean Corpuscular Hemoglobin 28, Mean Corpuscular Hemoglobin Concent 32, Red Cell Distribution Width 14.4, Platelet Count 210, Mean Platelet Volume 9.7 Microbiology 11/17/19 MRSA Screen - Final, Complete MRSA not isolated 11/17/19 Blood Culture - Preliminary, Resulted No growth 11/17/19 Urine Culture - Final, Complete 3 or more isolates Procedures NAME: KEISHA ESPAÑA [facility] REC#: [id number] PT STATUS: ADM IN : 1940 PHYSICIAN: SIXTO ANAND DO ADMIT DATE: 11/17/19/[facility] Signed Date of Exam:11/21/19 CHEST 1 VIEW, AP/PA ONLY INDICATION: Influenza, respiratory failure. COMPARISON: November 20, 2019. TECHNIQUE: Single radiograph of the chest dated November 21, 2019. FINDINGS: Pacer device is again identified with the battery pack overlying the left chest. The cardiac silhouette is mildly enlarged. Perihilar opacities are again identified, appearing slightly improved from the prior examination. No new focal pulmonary opacity. No pleural effusion. No pneumothorax. Osseous structures are stable. IMPRESSION: Improved though persisting bilateral perihilar infiltrates. Remainder of the examination appears stable. Dictated by: Dictated on workstation # [id number] Dict: 11/21/19 0743 Trans: 11/21/19 0847 [id number] [id number] Interpreted by: OFELIA DIAZ MD Electronically signed by: OFELIA DIAZ MD 11/21/19 0869 A/P: Assessment: Influenza A NSTEMI CAD.Coronary artery disease, multivessel, consisting of complete occlusion within the distal 3/4 of an extensively stented left anterior descending to which successful balloon angioplasty was carried out with reduction of stenosis to less than 50% and christian of normal antegrade flow. A small caliber second diagonal branch is jailed in the stented segment and has 90% ostial stenosis. The first obtuse marginal branch, left circumflex artery has 90% proximal stenosis. The right coronary artery is extensively stented and has up to 50% stenoses within the stented segment. The patient's stents are known to be Synergy 4.0 x 38 and 3.5 x 38 in the right coronary and Synergy 3.5 x 28 and 3.0 x 16 in the left anterior descending (01/2017 in [place]). Mild to moderate impairment of global left ventricular systolic function with ejection fraction approximately 45%. Hypokinesis of the anterolateral and apical angeles of the left ventricle. Normal left ventricular end-diastolic pressure. Per cardiac cath of 11-20-2019 Chronic A Fib S/p Medtronic dual chamber pacemaker in 2017 at ([facility] - Dr Pierce) Chronic warfarin anticoag Carotid art dz. 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 She does not recall the date of her stroke Gen weakness and limited ambulation Poor memory Plan: * Right groin u/s d/t c/o discomfort and swelling * S/P successful coronary intervention on 11-20-2019. She would need staged angioplasty to the obtuse marginal - continue Plavix * INR therapeutic - continue OAC with warfarin for stroke prevention d/t a-fib * H/H down following cardiac cath - stop ASA, stop Lovenox (since INR is now therapeutic) * Give lasix today * Monitor lab closely - repeat H/H later today * Treatment of flu is with the Hospitalist service * Discussed with Dr. Anand of Hospitalist services CRIS OSBORN Nov 21, 2019 08:50
[2019-11-21] MEDS ORDERED: ASPIRIN 81 MG CHEW (CHILDREN'S ASA) PO SCH (09:00)
[2019-11-21] MEDS ORDERED: FUROSEMIDE 40 MG/4 ML INJ (LASIX) IVP ONE ×2 (09:00→16:15)
[2019-11-21] MEDS ORDERED: ENOXAPARIN 60 MG/0.6 ML (LOVENOX) SYR SC SCH (09:00)
--- NOTE | 2019-11-21 09:47 | Progress Note - Cardiology ---
Cardiology SOAP Progress Note Subjective: Feels more short of breath No cp or palp or syncope Notes R groin discomfort Denies focal weakness Denies n/v/d Objective: I&O/Vital Signs 11/20/19 11/21/19 11/21/19 11/21/19 21:51 00:00 01:00 04:00 Temp 36.3 36.2 Pulse 116 102 93 94 Resp 14 18 B/P (MAP) 105/68 (80) 105/57 (73) 118/79 (92) Pulse Ox 90 91 94 O2 Delivery Room Air Room Air 11/21/19 07:00 Pulse 72 11/21/19 00:00 Intake Total 520 ml Output Total 500 ml Balance 20 ml Side: right Condition: DP/PT pulses palpable, extremity w/d/p Bruising: large amount of bruising Constitutional: AAO x 3, well-developed, well-nourished Respiratory: No accessory muscle use; other (good, bilat air entry; basal coarse crackles) Cardiovascular: irregularly irregular, S1 and S2, systolic murmur (soft MAGDALENE at card base) Gastrointestional: No tender; soft; No guarding, No rebound; audible bowel sounds Extremities: No clubbing, No cyanosis, No significant edema Neurologic/Psychiatric: oriented x 3, other (seems to move all limbs equally, power somewhat diminished on the L) Skin: normal color, warm/dry; No rash on exposed areas, No ulcerations on exposed areas Results/Procedures: Labs Laboratory Tests 11/21/19 03:45: White Blood Count 4.1L, Red Blood Count 3.15L, Hemoglobin 8.9#L, Hematocrit 28L, Mean Corpuscular Volume 89, Mean Corpuscular Hemoglobin 28, Mean Corpuscular Hemoglobin Concent 32, Red Cell Distribution Width 14.5, Platelet Count 187, Mean Platelet Volume 9.8, Neutrophils (%) (Auto) 66, Lymphocytes (%) (Auto) 21, Monocytes (%) (Auto) 13H, Eosinophils (%) (Auto) 1, Basophils (%) (Auto) 0, Neutrophils # (Auto) 2.7, Lymphocytes # (Auto) 0.8L, Monocytes # (Auto) 0.5, Eosinophils # (Auto) 0.0, Basophils # (Auto) 0.0, Prothrombin Time 24.7H, INR Comment 2.1H, Sodium Level 141, Potassium Level 4.4, Chloride Level 107, Carbon Dioxide Level 27, Anion Gap 7, Blood Urea Nitrogen 12, Creatinine 0.70, Estimat Glomerular Filtration Rate > 60, BUN/Creatinine Ratio 17, Glucose Level 162H, Calcium Level 8.2L, Phosphorus Level 3.1, Magnesium Level 1.7 Microbiology 11/17/19 MRSA Screen - Final, Complete MRSA not isolated 11/17/19 Blood Culture - Preliminary, Resulted No growth 11/17/19 Urine Culture - Final, Complete 3 or more isolates A/P: Assessment: Influenza A NSTEMI Echo of 11/18/19: LVEF 40-45%, apical and basal inf hypokinesis, biatrial enlargement, mod MR, mod to sev TR, RVSP 35 mmHg Card cath of 11/20/19: multivessel CAD, consisting of complete occlusion within the distal 3/4 of an extensively stented left anterior descending to which successful balloon angioplasty was carried out with reduction of stenosis to l ess than 50% and latter-day of normal antegrade flow. A small caliber second diagonal branch is jailed in the stented segment and has 90% ostial stenosis. The first obtuse marginal branch of the left circumflex artery has 90% proximal stenosis. The right coronary artery is extensively stented and has up to 50% stenoses within the stented segment. The patient's stents are known to be Synergy 4.0 x 38 and 3.5 x 38 in the right coronary and Synergy 3.5 x 28 and 3.0 x 16 in the left anterior descending (done 01/2017 in [place]). Mild to moderate impairment of global left ventricular systolic function with ejection fraction approximately 45%. Hypokinesis of the anterolateral and apical angeles of the left ventricle. Normal left ventricular end-diastolic pressure R phillip hematoma and blood-loss anemia following card cath of 11/20/19 Chronic A Fib S/p Medtronic dual chamber pacemaker in 2017 [facility]) Chronic warfarin anticoag Carotid art dz. 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 She does not recall the date of her stroke Gen weakness and limited ambulation Poor memory Plan: * S/P successful LAD intervention on 11-20-2019. She would need staged angioplasty to the obtuse marginal in 1-2 weeks - continue Plavix and warfarin * INR therapeutic - continue OAC with warfarin for stroke prevention d/t a-fib * H/H down following cardiac cath - stop ASA, stop Lovenox (since INR is now therapeutic). Continue warfarin and Plavix * Groin u/s today * Give furosemide today * Monitor lab closely - repeat H/H later today * Treatment of flu is with the Hospitalist service * Discussed with Dr. Mclean of Hospitalist service * Dr Martinez covering Cardiology over the weekend ANDREINA LEAHY MD FACP FAC CCDS Nov 21, 2019 09:47
--- NOTE | 2019-11-21 10:38 | Diagnostic Imaging Report ---
Indication: Status post heart catheterization, complaining of right groin pain. Grayscale, color-flow and duplex Doppler evaluation of the right groin was performed. There appears to be a small pseudoaneurysm arising from the right common femoral artery measuring 11 mm x 4 mm x 9 mm. No other abnormality is seen. Common femoral vein was not evaluated on this study. 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 Dictated by: Dictated on workstation # [id number]
--- NOTE | 2019-11-21 10:43 | Pulmonary Progress Note ---
Sepsis Event Evaluation Height, Weight, BMI Height: '" Weight: lbs. oz. kg; 27.73 BMI Method: Focused Exam Time of Focused Exam: 04:54 Exam Exam Vital Signs Date Time Temp Pulse Resp B/P (MAP) Pulse Ox O2 Delivery O2 Flow Rate FiO2 11/21/19 07:00 72 11/21/19 04:00 36.2 94 18 118/79 (92) 94 Room Air 11/21/19 01:00 93 11/21/19 00:00 36.3 102 14 105/57 (73) 91 Room Air 11/20/19 21:51 116 105/68 (80) 90 11/20/19 21:00 98 Nasal Cannula 2.00 96 11/20/19 20:50 124 99/64 (76) 98 11/20/19 20:09 36.6 99 105/70 (82) 98 Nasal Cannula 2.00 11/20/19 19:52 129 109/77 (88) 97 Nasal Cannula 2.00 11/20/19 19:38 93 121/77 (92) 97 Nasal Cannula 2.00 11/20/19 19:22 113 91/69 (76) 98 Nasal Cannula 2.00 11/20/19 19:09 111 120/88 (99) 98 Nasal Cannula 2.00 11/20/19 19:00 106 11/20/19 18:52 120 117/82 (94) 98 Nasal Cannula 2.00 11/20/19 18:36 110 128/88 (101) 96 Nasal Cannula 2.00 11/20/19 18:22 116 138/91 (107) 90 Nasal Cannula 2.00 11/20/19 15:20 91 Room Air 2.00 11/20/19 12:49 104 11/20/19 12:09 91 Room Air I & O 11/21/19 07:00 Intake Total 790 ml Output Total 775 ml Balance 15 ml Height & Weight Height: '" Weight: lbs. oz. kg; 27.73 BMI Method: General Appearance: No Apparent Distress, WD/WN, Anxious, Chronically ill HEENT: PERRL/EOMI, Normal ENT Inspection Neck: Full Range of Motion, Normal Inspection, Non Tender Respiratory: Chest Non Tender, Lungs Clear, Normal Breath Sounds, No Accessory Muscle Use, No Respiratory Distress Cardiovascular: No Edema, No Gallop, No JVD, No Murmur, Normal Peripheral Pulses, Irregularly Irregular Capillary Refill: NONE Peripheral Pulses: 1+ Dorsalis Pedis (R), 1+ Left Dors-Pedis (L); 2+ Radial Pulses (R), 2+ Radial Pulses (L) Gastrointestinal: normal bowel sounds, non tender, soft Extremity: Normal Capillary Refill, Non Tender Neurologic/Psychiatric: Alert, Oriented x3, No Motor/Sensory Deficits, Normal Mood/Affect Skin: Normal Color, Warm/Dry Lymphatic: No Adenopathy Results Lab Laboratory Tests 11/19/19 13:21 11/20/19 03:55 11/21/19 03:45 MOISÉS JACINTO DO Nov 21, 2019 10:43
[2019-11-21] MEDS ORDERED: FUROSEMIDE 40 MG/4 ML INJ (LASIX) ONE ×2 (11:49→20:57)
--- NOTE | 2019-11-21 11:51 | Progress Note - Hospitalist ---
Subjective HPI/CC On Admission Date Seen by Provider: Nov 21, 2019 Time Seen by Provider: 10:00 Influenza + NSTEMI Subjective/Events-last exam Pt doesn't feel well A bit more wheezing and coughing today Had a little bit of a hematoma in the groin after cardiac catheterization with intervention IV fluid maintained Inpatient rehab versus swing bed depending on her insurance Review of Systems General: Fatigue Pulmonary: Dyspnea Focused Exam Time of Focused Exam: 04:54 Objective Exam Vital Signs Vital Signs Date Time Temp Pulse Resp B/P (MAP) Pulse Ox O2 Delivery O2 Flow Rate FiO2 11/21/19 20:16 36.4 65 18 110/78 95 Nasal Cannula 2.00 11/21/19 09:00 96 Capillary Refill : NONE General Appearance: No Apparent Distress, WD/WN, Chronically ill Respiratory: Normal Breath Sounds, No Accessory Muscle Use, No Respiratory Distress, Crackles Cardiovascular: Irregularly Irregular Neurologic/Psychiatric: Alert, Oriented x3, No Motor/Sensory Deficits, Depressed Affect Results/Procedures Lab Laboratory Tests 11/21/19 03:45 11/21/19 14:45 Patient resulted labs reviewed. Assessment/Plan Assessment and Plan Assess & Plan/Chief Complaint Assessment: NSTEMI s/p cath with intervention Flu Wheezing Falls Plan: Dr Valenzuela appreciated PT OT IRF? Diagnosis/Problems Diagnosis/Problems (1) Hypoxia Status: Acute (2) Nausea and vomiting Status: Acute Qualifiers: Vomiting type: unspecified Vomiting Intractability: non-intractable Qualified Codes: R11.2 - Nausea with vomiting, unspecified (3) Influenza Status: Acute (4) Atrial fibrillation (5) CAD (coronary artery disease) (6) PVD (peripheral vascular disease) (7) Pacemaker (8) NSTEMI (non-ST elevated myocardial infarction) (9) Elevated brain natriuretic peptide (BNP) level (10) Anticoagulated on Coumadin (11) History of right common carotid artery stent placement Clinical Quality Measures DVT/VTE Risk/Contraindication: Risk Factor Score Per Nursin RFS Level Per Nursing on Admit: 4+=Very High SIXTO ANAND DO Nov 21, 2019 11:51
--- NOTE | 2019-11-21 12:15 | Physical Therapy Daily Note ---
PT Daily Note-Current Subjective Patient is really not feeling well at this time and her and her are insisting that she can not get up right not. Pain Numeric Pain Scale: 5-Moderate Pain Location: Right Location Body Site: Thigh (Groin) Appearance Patient in bed with call light and bedside table within reach. present. Mental Status Patient Orientation: Person, Place Attachments: IV Transfers SCALE: Activities may be completed with or without assistive devices. 2-Yyphpqmlvw-uqftavr completes the activity by him/herself with no assistance from a helper. 5-Set-up or Clean-up Assistance-helper sets up or cleans up; patient completes activity. [place] assists only prior to or following the activity. 4-Supervision or Touching Assistance-helper provides verbal cues and/or touching/steadying and/or contact guard assistance as patient completes activity. Assistance may be provided throughout the activity or intermittently. 3-Partial/Moderate Assistance-helper does LESS THAN HALF the effort. [place] lifts, holds or supports trunk or limbs, but provides less than half the effort. 2-Substantial/Maximal Assistance-helper does MORE THAN HALF the effort. [place] lifts or holds trunk or limbs and provides more than half the effort. 8-Whhpplryp-cgbget does ALL the effort. Patient does none of the effort to complete the activity. Or, the assistance of 2 or more helpers is required for the patient to complete the activity. If activity was not attempted, code reason: 7-Patient Refused. 9-Not Applicable-not attempted and the patient did not perform the activity before the current illness, exacerbation or injury. 10-Not Attempted due to Environmental Limitations-(lack of equipment, weather restraints, etc.). 88-Not Attempted due to Medical Conditions or Safety Concerns. Roll Left & Right (QC): 6 Weight Bearing Right Lower Extremity: Right Weight Bearing/Tolerated Left Lower Extremity: Left Weight Bearing/Tolerated Gait Training Does the Patient Walk?: No and Walking Goal IS indicated Exercises Supine Ex: Ankle pumps, Quad Set, Glut sets, Heel Slides, Straight leg raise Supine Reps: 10 (BLE) Treatments BLE exercises, bed mobility Assessment Current Status: Poor Progress Patient is not feeling and does not want to get out of bed at this time but agreed to exercises. Patient fatigues quickly with exercises and needs frequent rest breaks. PT Mcc Goals Access Liaison Goals PT Access Liaison Goals Time Frame: Nov 26, 2019 Sit to Lying (QC): 6 Lying-Sitting on Side/Bed(QC): 6 Sit to Stand (QC): 6 Walk 50ft with 2 Turns (QC): 6 Walk 150 ft (QC): 6 PT Plan Problem List Problem List: Activity Tolerance, Functional Strength, Safety, Balance, Gait, Transfer, Bed Mobility, ROM Treatment/Plan Treatment Plan: Continue Plan of Care Treatment Plan: Bed Mobility, Education, Functional Activity Tawanna, Functional Strength, Gait, Safety, Therapeutic Exercise, Transfers Treatment Duration: Nov 26, 2019 Frequency: 6 times per week Estimated Hrs Per Day: .25 hour per day Patient and/or Family Agrees t: Yes Time/GCodes Time In: 1051 Time Out: 1101 Total Billed Treatment Time: 10 Total Billed Treatment 1 visit EX 10 LESLEY MURRAY PT Nov 21, 2019 12:15
--- NOTE | 2019-11-21 14:35 | Occupational Ther Daily Note ---
OT Current Status-Daily Note Subjective Pt laying in bed at start of session, stating she is pretty tired today. She did not report any pain. Mental Status/Objective Attachments: Mandujano Catheter, Oxygen ADL-Treatment Therapy Code Descriptions/Definitions Functional [place] Measure: 0=Not Assessed/NA 4=Minimal Assistance 1=Total Assistance 5=Supervision or Setup 2=Maximal Assistance 6=Modified [place] 3=Moderate Assistance 7=Complete IndependenceSCALE: Activities may be completed with or without assistive devices. 6-Ebaekezmak-tlznqhi completes the activity by him/herself with no assistance from a helper. 5-Set-up or Clean-up Assistance-helper sets up or cleans up; patient completes activity. [place] assists only prior to or following the activity. 4-Supervision or Touching Assistance-helper provides verbal cues and/or t ouching/steadying and/or contact guard assistance as patient completes activity. Assistance may be provided throughout the activity or intermittently. 3-Partial/Moderate Assistance-helper does LESS THAN HALF the effort. [place] lifts, holds or supports trunk or limbs, but provides less than half the effort. 2-Substantial/Maximal Assistance-helper does MORE THAN HALF the effort. [place] lifts or holds trunk or limbs and provides more than half the effort. 1-Yqkfbifoh-siijfz does ALL the effort. Patient does none of the effort to complete the activity. Or, the assistance of 2 or more helpers is required for the patient to complete the activity. If activity was not attempted, code reason: 7-Patient Refused. 9-Not Applicable-not attempted and the patient did not perform the activity before the current illness, exacerbation or injury. 10-Not Attempted due to Environmental Limitations-(lack of equipment, weather restraints, etc.). 88-Not Attempted due to Medical Conditions or Safety Concerns. Other Treatment Pt laying in bed. OT noticed pt's feet were touching footboard, asked pt if she would like to scoot up in bed. Pt reported she had tried, demo'd reaching up with her left arm for hand rails and attempted to pull herself up. OT educated pt on lowering HOB all the way, and planting feet into the bed to assist with pushing herself upwards. Pt able to follow verbal cues in order to scoot towards HOB successfully. Pt then reported doing some of her arm exercises, OT asked pt to demo. Pt recalled 2 of 3 exercises taught in yesterdays session. OT educated pt on exercises again, pt completed x10 reps each of the following: BUE shoulder flexion, elbow flexion/extension, & wrist flexion/extension. Post OT session, pt laying in bed, call light in reach and all needs met. Education OT Patient Education: Correct positioning, Energy conservation, Exercise program, Progress toward Goal/Update tx plan, Purpose of tx/functional activities Teaching Recipient: Patient Teaching Methods: Discussion Response to Teaching: Verbalize Understanding OT Support Teacher Goals Intermediate Goals Time Frame: Nov 26, 2019 Eating (QC): 6 Oral Hygiene (QC): 6 Toileting Hygiene (QC): 6 Shower/Bathe Self (QC): 6 Upper Body Dressing (QC): 6 Lower Body Dressing (QC): 6 On/Off Footwear (QC): 6 Additional Goals: 1-Demonstrate ADL Tasks, 2-Verbalize Understanding, 3- ImproveStrength/Tawanna 1=Demonstrate adherence to instructed precautions during ADL tasks. 2=Patient will verbalize/demonstrate understanding of assistive devices/modifications for ADL. 3=Patient will improve strength/tolerance for activity to enable patient to perform ADL's. OT Education/Plan Problem List/Assessment Assessment: Decreased Activ Tolerance, Decreased UE Strength, Impaired I ADL's, Impaired Self-Care Skills Discharge Recommendations Plan/Recommendations: Continue POC Treatment Plan/Plan of Care Treatment,Training & Education: Yes Patient would benefit from OT for education, treatment and training to promote independence in ADL's, mobility, safety and/or upper extremity function for ADL's. Plan of Care: ADL Retraining, Functional Mobility, UE Funct Exercise/Act Treatment Duration: Nov 26, 2019 Frequency: 5 times per week Estimated Hrs Per Day: .25 hour per day Agreement: Yes 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: Good Time/GCodes Start Time: 13:15 Stop Time: 13:28 Total Time Billed (hr/min): 13 Billed Treatment Time 1, EX JUSTIN GALVEZ OT Nov 21, 2019 14:35
[2019-11-21 14:54] LABS: HEMOGLOBIN 8.1 G/DL (11.5-16.0); MEAN PLATELET VOLUME 9.7 FL (7.4-10.4); RED CELL DISTRIBUTION WIDTH 14.4 % (10.0-14.5); WHITE BLOOD COUNT 4.4 10^3/uL (4.3-11.0)
[2019-11-21] MEDS ORDERED: NS IV 500 ML 500 ML IV SCH (16:15)
[2019-11-21] MEDS ORDERED: fentaNYL INJECTION 100 MCG/2 ML AMP ONE (17:38)
--- NOTE | 2019-11-21 17:50 | NUR ---
pt groin to be held x [address] Valenzuela for bleed found on ultra sound. pt given fentynl for pain a site held x 30 minutes. pt flat post hold with sand bag in place. resting with eyes closed. Dr Valenzuela to room at 1800 to check site.
[2019-11-21] MEDS ORDERED: warFARin 2.5 MG (COUMADIN) TAB PO SCH (18:00)
[2019-11-21] MEDS: ONDANSETRON 4 MG/2 ML (SDV) Z0FRAN IV PRN (18:59)
[2019-11-22 03:54] LABS: BASOPHILS % (AUTO) 0 % (0-10); EOSINOPHILS # (AUTO) 0.1 10^3/uL (0.0-0.3); EOSINOPHILS % (AUTO) 1 % (0-10); HEMATOCRIT 31 % (35-52); HEMOGLOBIN 10.2 G/DL (11.5-16.0); LYMPHOCYTES # (AUTO) 1.2 X 10^3 (1.0-4.0); LYMPHOCYTES % (AUTO) 21 % (12-44); MEAN CORPUSCULAR HEMOGLOBIN 29 PG (25-34); MEAN CORPUSCULAR HGB CONC 33 G/DL (32-36); MEAN CORPUSCULAR VOLUME 86 FL (80-99); MEAN PLATELET VOLUME 9.7 FL (7.4-10.4); MONOCYTES # (AUTO) 0.6 X 10^3 (0.0-1.0); MONOCYTES % (AUTO) 10 % (0-12); NEUTROPHILS # (AUTO) 3.9 X 10^3 (1.8-7.8); NEUTROPHILS % (AUTO) 67 % (42-75); PLATELET COUNT 194 10^3/uL (130-400); RED CELL DISTRIBUTION WIDTH 14.8 % (10.0-14.5); WHITE BLOOD COUNT 5.8 10^3/uL (4.3-11.0)
[2019-11-22 04:00] VITALS: BP 128/71
[2019-11-22 04:07] LABS: INR 2.8 (0.8-1.4); PROTHROMBIN TIME PATIENT 30.9 SEC (12.2-14.7)
[2019-11-22 04:14] LABS: BUN/CREATININE RATIO 15; CALCIUM 8.7 MG/DL (8.5-10.1); CARBON DIOXIDE 26 MMOL/L (21-32); CHLORIDE 104 MMOL/L (98-107); CREATININE SERUM 0.66 MG/DL (0.60-1.30); GFR ESTIMATED > 60; GLUCOSE 115 MG/DL (70-105); MAGNESIUM 1.6 MG/DL (1.6-2.4); PHOSPHORUS 2.8 MG/DL (2.3-4.7); POTASSIUM 3.6 MMOL/L (3.6-5.0); SODIUM 139 MMOL/L (135-145)
[2019-11-22] MEDS: CYANOCOBALAMIN 1,000 MCG (VITAMIN B-12) TABLET PO SCH (06:10)
[2019-11-22] MEDS: ACETAMINOPHEN 500 MG TAB (TYLENOL) PO PRN (06:11)
--- NOTE | 2019-11-22 07:43 | Diagnostic Imaging Report ---
INDICATION: Influenza, respiratory failure, hypoxia, sepsis. TECHNIQUE: Single-view chest 3:44 a.m. CORRELATION STUDY: 11/21/2019. FINDINGS: Left-sided pacemaker is present. Heart size and mediastinum are generally stable with calcification of the aortic arch. Vasculature overall appears increased. Additionally, there appears to be increasing particularly central perihilar infiltrates and/or edema. IMPRESSION: 1. Adverse change in the appearance of the chest. Vasculature appears increased. Additionally, there are increasing areas of edema and/or infiltrate; particularly in the perihilar regions. Dictated by: Dictated on workstation # [id number]
[2019-11-22 08:00] VITALS: BP 146/76
[2019-11-22] MEDS: CLOPIDOGREL 75 MG (PLAVIX) TABLET PO SCH (09:08)
[2019-11-22] MEDS: meTOprolol TARTRATE 50 MG (LOPRESSOR) TAB PO SCH ×2 (09:08→20:26)
[2019-11-22] MEDS: CEFDINIR 300 MG (OMNICEF) CAP PO SCH ×2 (09:08→20:26)
--- NOTE | 2019-11-22 09:43 | Progress Note - Cardiology ---
Cardiology SOAP Progress Note Subjective: No cp or palp or syncope R groin discomfort still present (with palpation) No R leg discomfort or distal leg discoloration No n/v/d Gen malaise and weakness Objective: I&O/Vital Signs 11/21/19 11/21/19 11/22/19 11/22/19 22:56 23:59 01:00 04:00 Temp 36.4 36.8 36.7 Pulse 65 61 61 67 Resp 16 18 16 B/P (MAP) 101/57 110/72 (85) 128/71 (90) Pulse Ox 95 95 97 O2 Delivery Nasal Cannula Nasal Cannula O2 Flow Rate 2.00 2.00 11/22/19 11/22/19 07:00 08:00 Temp 36.2 Pulse 80 77 Resp 18 B/P (MAP) 146/76 (99) Pulse Ox 95 O2 Delivery Nasal Cannula O2 Flow Rate 2.00 Side: right Condition: DP/PT pulses palpable, extremity w/d/p Bruising: large amount of bruising Constitutional: AAO x 3, well-developed, well-nourished Respiratory: No accessory muscle use; other (good, bilat air entry; basal coarse crackles) Cardiovascular: irregularly irregular, S1 and S2, systolic murmur (soft MAGDALENE at card base) Gastrointestional: No tender; soft; No guarding, No rebound; audible bowel sounds Extremities: No clubbing, No cyanosis, No significant edema Neurologic/Psychiatric: oriented x 3, other (seems to move all limbs equally, power somewhat diminished on the L) Skin: normal color, warm/dry; No rash on exposed areas, No ulcerations on exposed areas Results/Procedures: Labs Laboratory Tests 11/21/19 14:45: White Blood Count 4.4, Red Blood Count 2.86L, Hemoglobin 8.1L, Hematocrit 25L, Mean Corpuscular Volume 89, Mean Corpuscular Hemoglobin 28, Mean Corpuscular Hemoglobin Concent 32, Red Cell Distribution Width 14.4, Platelet Count 210, Mean Platelet Volume 9.7 11/22/19 03:40: White Blood Count 5.8, Red Blood Count 3.54L, Hemoglobin 10.2#L, Hematocrit 31L, Mean Corpuscular Volume 86, Mean Corpuscular Hemoglobin 29, Mean Corpuscular Hemoglobin Concent 33, Red Cell Distribution Width 14.8H, Platelet Count 194, Mean Platelet Volume 9.7, Neutrophils (%) (Auto) 67, Lymphocytes (%) (Auto) 21, Monocytes (%) (Auto) 10, Eosinophils (%) (Auto) 1, Basophils (%) (Auto) 0, Neutrophils # (Auto) 3.9, Lymphocytes # (Auto) 1.2, Monocytes # (Auto) 0.6, Eosinophils # (Auto) 0.1, Basophils # (Auto) 0.0, Prothrombin Time 30.9H, INR Comment 2.8H, Sodium Level 139, Potassium Level 3.6, Chloride Level 104, Carbon Dioxide Level 26, Anion Gap 9, Blood Urea Nitrogen 10, Creatinine 0.66, Estimat Glomerular Filtration Rate > 60, BUN/Creatinine Ratio 15, Glucose Level 115H, Calcium Level 8.7, Phosphorus Level 2.8, Magnesium Level 1.6 Microbiology 11/17/19 MRSA Screen - Final, Complete MRSA not isolated 11/17/19 Blood Culture - Preliminary, Resulted No growth 11/17/19 Urine Culture - Final, Complete 3 or more isolates Laboratory Tests 11/21/19 03:45 11/21/19 14:45 11/22/19 03:40 A/P: Assessment: Influenza A NSTEMI Echo of 11/18/19: LVEF 40-45%, apical and basal inf hypokinesis, biatrial enlargement, mod MR, mod to sev TR, RVSP 35 mmHg Card cath of 11/20/19: multivessel CAD, consisting of complete occlusion within the distal 3/4 of an extensively stented left anterior descending to which successful balloon angioplasty was carried out with reduction of stenosis to less than 50% and gnosticist of normal antegrade flow. A small caliber second diagonal branch is jailed in the stented segment and has 90% ostial stenosis. The first obtuse marginal branch of the left circumflex artery has 90% proximal stenosis. The right coronary artery is extensively stented and has up to 50% stenoses within the stented segment. The patient's stents are known to be Synergy 4.0 x 38 and 3.5 x 38 in the right coronary and Synergy 3.5 x 28 and 3.0 x 16 in the left anterior descending (done 01/2017 in [place]). Mild to moderate impairment of global left ventricular systolic function with ejection fraction approximately 45%. Hypokinesis of the anterolateral and apical angeles of the left ventricle. Normal left ventricular end-diastolic pressure R phillip hematoma and 1 cm psuedoaneurysm of the R femoral and blood-loss anemia following card cath of 11/20/19; treated 30-minute manual pressure and 1 unit PRBC on 11/21/19 Chronic A Fib S/p Medtronic dual chamber pacemaker in 2017 at ([facility] - Dr Pierce) Chronic warfarin anticoag Carotid art dz. 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 She does not recall the date of her stroke Gen weakness and limited ambulation Poor memory Plan: * S/P successful LAD intervention (for very long instent occlusion) on 11-20-2019. She would need staged angioplasty to the obtuse marginal in 1-2 we eks - continue Plavix and warfarin * Rapidly rising INR. Reduce warfarin * Repeat groin u/s today * Treatment of flu is with the Hospitalist service * Dr Martinez covering Cardiology over the weekend ANDREINA LEAHY MD FACP FACC CCDS Nov 22, 2019 09:43
--- NOTE | 2019-11-22 11:46 | Occupational Ther Daily Note ---
OT Current Status-Daily Note Subjective Pt seen supine in bed, stating she is planning to go to sleep as she slept poorly last night, agrees to OT tx session. Pt denies pain, just tired. Mental Status/Objective Patient Orientation: Person, Place, Situation, Normal For Age Attachments: Mandujano Catheter, Oxygen (3L), Telemetry ADL-Treatment Therapy Code Descriptions/Definitions Functional [place] Measure: 0=Not Assessed/NA 4=Minimal Assistance 1=Total Assistance 5=Supervision or Setup 2=Maximal Assistance 6=Modified [place] 3=Moderate Assistance 7=Complete IndependenceSCALE: Activities may be completed with or without assistive devices. 7-Jfvvffertr-kdyszky completes the activity by him/herself with no assistance from a helper. 5-Set-up or Clean-up Assistance-helper sets up or cleans up; patient completes activity. [place] assists only prior to or following the activity. 4-Supervision or Touching Assistance-helper provides verbal cues and/or touching/steadying and/or contact guard assistance as patient completes activity. Assistance may be provided throughout the activity or intermittently. 3-Partial/Moderate Assistance-helper does LESS THAN HALF the effort. [place] lifts, holds or supports trunk or limbs, but provides less than half the effort. 2-Substantial/Maximal Assistance-helper does MORE THAN HALF the effort. [place] lifts or holds trunk or limbs and provides more than half the effort. 9-Xjnaeocsa-cffzpc does ALL the effort. Patient does none of the effort to complete the activity. Or, the assistance of 2 or more helpers is required for the patient to complete the activity. If activity was not attempted, code reason: 7-Patient Refused. 9-Not Applicable-not attempted and the patient did not perform the activity before the current illness, exacerbation or injury. 10-Not Attempted due to Environmental Limitations-(lack of equipment, weather restraints, etc.). 88-Not Attempted due to Medical Conditions or Safety Concerns. Eating (QC): 7 Oral Hygiene (QC): 7 Other Treatment Pt very talkative, states unable to sleep. Pt completes 3 exercises of 10 reps of exercises bilaterally: shoulder flexion, shoulder extension with resistance, and shoulder ab/adduction. Pt denies OOB activity, including BM (stating she notified nursing of needing laxative). Pt denies bedside oral hygiene. Pt left in bed, states she would feel more comfortable with all bed rails up, all 4 placed up, call light in reach, phone in hand. Pt denies further needs. Education OT Patient Education: Correct positioning, Exercise program, Home exercise program Teaching Recipient: Patient Teaching Methods: Demonstration, Discussion Response to Teaching: Verbalize Understanding, Return Demonstration OT Assisted Goals Conference Translator Goals Time Frame: Nov 26, 2019 Eating (QC): 6 Oral Hygiene (QC): 6 Toileting Hygiene (QC): 6 Shower/Bathe Self (QC): 6 Upper Body Dressing (QC): 6 Lower Body Dressing (QC): 6 On/Off Footwear (QC): 6 Additional Goals: 1-Demonstrate ADL Tasks, 2-Verbalize Understanding, 3- ImproveStrength/Tawanna 1=Demonstrate adherence to instructed precautions during ADL tasks. 2=Patient will verbalize/demonstrate understanding of assistive devices/modifications for ADL. 3=Patient will improve strength/tolerance for activity to enable patient to perform ADL's. OT Education/Plan Problem List/Assessment Assessment: Decreased Activ Tolerance, Decreased UE Strength, Impaired I ADL's, Impaired Self-Care Skills Discharge Recommendations Plan/Recommendations: Continue POC Therapy Discharge Recommendati: Intermittent Supervision, Home & Family Treatment Plan/Plan of Care Treatment,Training & Education: Yes Patient would benefit from OT for education, treatment and training to promote independence in ADL's, mobility, safety and/or upper extremity function for ADL's. Plan of Care: ADL Retraining, Functional Mobility, UE Funct Exercise/Act Treatment Duration: Nov 26, 2019 Frequency: 5 times per week Estimated Hrs Per Day: .25 hour per day Agreement: Yes 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: Good Time/GCodes Start Time: 11:20 Stop Time: 11:29 Total Time Billed (hr/min): 9 Billed Treatment Time 1, EX (9) FARHAN SAINI OTR Nov 22, 2019 11:46
[2019-11-22 12:00] VITALS: BP 135/75
--- NOTE | 2019-11-22 12:18 | Occupational Ther Daily Note ---
OT Current Status-Daily Note Subjective [id number] (25): Pt seen in chair. Pt agrees to OT tx session. Pt denies current pain. present through session. Mental Status/Objective Attachments: IV, Oxygen (5L) ADL-Treatment Therapy Code Descriptions/Definitions Functional [place] Measure: 0=Not Assessed/NA 4=Minimal Assistance 1=Total Assistance 5=Supervision or Setup 2=Maximal Assistance 6=Modified [place] 3=Moderate Assistance 7=Complete IndependenceSCALE: Activities may be completed with or without assistive devices. 7-Rjpqyaosom-fkhrqgn completes the activity by him/herself with no assistance from a helper. 5-Set-up or Clean-up Assistance-helper sets up or cleans up; patient completes activity. [place] assists only prior to or following the activity. 4-Supervision or Touching Assistance-helper provides verbal cues and/or touching/steadying and/or contact guard assistance as patient completes activity. Assistance may be provided throughout the activity or intermittently. 3-Partial/Moderate Assistance-helper does LESS THAN HALF the effort. [place] lifts, holds or supports trunk or limbs, but provides less than half the effort. 2-Substantial/Maximal Assistance-helper does MORE THAN HALF the effort. [place] lifts or holds trunk or limbs and provides more than half the effort. 2-Slfatiwdc-ckuzge does ALL the effort. Patient does none of the effort to complete the activity. Or, the assistance of 2 or more helpers is required for the patient to complete the activity. If activity was not attempted, code reason: 7-Patient Refused. 9-Not Applicable-not attempted and the patient did not perform the activity before the current illness, exacerbation or injury. 10-Not Attempted due to Environmental Limitations-(lack of equipment, weather restraints, etc.). 88-Not Attempted due to Medical Conditions or Safety Concerns. Eating (QC): 6 Other Treatment [id number]: Pt completes sit to stand x2, stands for ~2 min completing UE exercise (shoulder flexion with no resistance and bicep curls with theraband). Pt completes and returns to sit, SOB. Pt educated on energy conservation/ management and importance of maintaining energy and taking breaks when begin feeling fatigued as to not expend all energy. pt agrees, demonstrates ability to express need for break 2 additional times through session. Pt and states pt has already cleaned up LB and dressed due to BM mess. Pt states she is unable to complete BM clean up with good balance, continue to work on. Educated on benefits of standing exercise for balance. Pt agrees. Pt completes seated exercise (bicep, shoulder flexion, back extensions) x10-12 reps with pt monitoring own breath and energy level/ needs. Pt educated on OT seeing pt for additonal minutes post-lunch for UB dressing. Pt agrees, all needs met, call light in reach, present. Education OT Patient Education: Correct positioning, Exercise program, Home exercise pr ogram, Instructions to caregiver, Modified ADL techniques, Purpose of tx/functional activities, Rehab process Teaching Recipient: Patient, Significant Other Teaching Methods: Demonstration, Discussion Response to Teaching: Verbalize Understanding, Return Demonstration, Reinforcement Needed OT Senior Front End Web Developer Goals Senior Front End Web Developer Goals Time Frame: Nov 26, 2019 Eating (QC): 6 Oral Hygiene (QC): 6 Toileting Hygiene (QC): 6 Shower/Bathe Self (QC): 6 Upper Body Dressing (QC): 6 Lower Body Dressing (QC): 6 On/Off Footwear (QC): 6 Additional Goals: 1-Demonstrate ADL Tasks, 2-Verbalize Understanding, 3-ImproveStrength/Tawanna 1=Demonstrate adherence to instructed precautions during ADL tasks. 2=Patient will verbalize/demonstrate understanding of assistive devices/modifications for ADL. 3=Patient will improve strength/tolerance for activity to enable patient to perform ADL's. OT Education/Plan Problem List/Assessment Assessment: Decreased Activ Tolerance, Decreased UE Strength, Impaired Funct Balance, Impaired I ADL's, Impaired Self-Care Skills Discharge Recommendations Plan/Recommendations: Continue POC Treatment Plan/Plan of Care Treatment,Training & Education: Yes Patient would benefit from OT for education, treatment and training to promote independence in ADL's, mobility, safety and/or upper extremity function for ADL's. Plan of Care: ADL Retraining, Functional Mobility, UE Funct Exercise/Act Treatment Duration: Nov 26, 2019 Frequency: 5 times per week Estimated Hrs Per Day: .25 hour per day Agreement: Yes 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: Good Time/GCodes Start Time: 11:45 Stop Time: 12:10 Total Time Billed (hr/min): 25 Billed Treatment Time 2872-1133: 1, EX 2 (25) FARHAN SAINI OTR Nov 22, 2019 12:18
[2019-11-22] MEDS ORDERED: MILK OF MAGNESIA 400 MG/5 ML 30 ML UDC PO PRN (12:30)
[2019-11-22] MEDS ORDERED: BISACODYL 10 MG SUPP (DULCOLAX) PR PRN (12:30)
--- NOTE | 2019-11-22 12:33 | Progress Note - Hospitalist ---
Subjective HPI/CC On Admission Date Seen by Provider: Nov 22, 2019 Time Seen by Provider: 12:00 Influenza + NSTEMI Subjective/Events-last exam Patient's primary complaint is about constipation. In addition she is unhappy that she doesn't have any salad dressing for her salad. She has no complaints of her groin. She does have a cough. Review of Systems Pulmonary: Cough Gastrointestinal: Constipation Focused Exam Time of Focused Exam: 04:54 Objective Exam Vital Signs Vital Signs Date Time Temp Pulse Resp B/P (MAP) Pulse Ox O2 Delivery O2 Flow Rate FiO2 11/22/19 16:10 Room Air 3.00 96 11/22/19 13:00 73 11/22/19 12:00 36.4 19 135/75 (95) 97 Capillary Refill : NONE General Appearance: No Apparent Distress, WD/WN HEENT: Normal ENT Inspection Neck: Non Tender, Supple, Limited Range of Motion Respiratory: Lungs Clear, Normal Breath Sounds, No Respiratory Distress, Expiration, Wheezing Cardiovascular: Regular Rate, Rhythm, Systolic Murmur Gastrointestinal: Normal Bowel Sounds, Non Tender, Soft Back: Normal Inspection Extremity: No Pedal Edema Results/Procedures Lab Laboratory Tests 11/22/19 03:40 Patient resulted labs reviewed. Assessment/Plan Assessment and Plan Assess & Plan/Chief Complaint NSTEMI-status post angioplasty to the LAD s/p cath with intervention Flu-finished with Tamiflu Wheezing-on pulmonary toilet and Omnicef [place] - physical therapy Constipation we'll give her Dulcolax Status post bleed from catheterization site in the groin with transfusion with 1 unit of blood D/c planning per PT and cardiology Clinical Quality Measures DVT/VTE Risk/Contraindication: Risk Factor Score Per Nursin RFS Level Per Nursing on Admit: 4+=Very High BEATRIZ HALL MD Nov 22, 2019 12:33
--- NOTE | 2019-11-22 13:10 | NUR ---
THIS NURSE CALLED ULTRASOUND FOR RESULTS ON MORNING US. INDUSTRIAL SOCIOLOGIST VARUN SAID PSEUDOANEURYSM HAS RESOLVED. REPORT WILL BE IN SOON.
--- NOTE | 2019-11-22 13:42 | Physical Therapy Daily Note ---
PT Daily Note-Current Subjective Patient is agreeable to therapy at this time. Pain Numeric Pain Scale: 5-Moderate Pain Location: Right Location Body Site: Thigh (Groin) Appearance Patient in bed with call light and bedside table within reach. Family present. Mental Status Patient Orientation: Person, Place, Time, Situation Attachments: Oxygen Transfers SCALE: Activities may be completed with or without assistive devices. 0-Ekynxyiuej-vymyiiv completes the activity by him/herself with no assistance from a helper. 5-Set-up or Clean-up Assistance-helper sets up or cleans up; patient completes activity. [place] assists only prior to or following the activity. 4-Supervision or Touching Assistance-helper provides verbal cues and/or touching/steadying and/or contact guard assistance as patient completes activity. Assistance may be provided throughout the activity or intermittently. 3-Partial/Moderate Assistance-helper does LESS THAN HALF the effort. [place] lifts, holds or supports trunk or limbs, but provides less than half the effort. 2-Substantial/Maximal Assistance-helper does MORE THAN HALF the effort. [place] lifts or holds trunk or limbs and provides more than half the effort. 3-Ieivqcjzz-pcugex does ALL the effort. Patient does none of the effort to complete the activity. Or, the assistance of 2 or more helpers is required for the patient to complete the activity. If activity was not attempted, code reason: 7-Patient Refused. 9-Not Applicable-not attempted and the patient did not perform the activity before the current illness, exacerbation or injury. 10-Not Attempted due to Environmental Limitations-(lack of equipment, weather restraints, etc.). 88-Not Attempted due to Medical Conditions or Safety Concerns. Roll Left & Right (QC): 6 Sit to Lying (QC): 3 Lying to Sitting/Side of Bed(Q: 5 Sit to Stand (QC): 4 Chair/Xrk-di-Bkcsp Xfer(QC): 4 Weight Bearing Right Lower Extremity: Right Weight Bearing/Tolerated Left Lower Extremity: Left Weight Bearing/Tolerated Gait Training Does the Patient Walk?: Yes Distance: 60' Walk 10 feet (QC): 4 Walk 50 ft with 2 Turns(QC): 4 Gait Persons Needed: 1 Gait Assistive Device: FWW CGA for safety. Patient is stable during ambulation. Walk within room due to droplet precautions. Wheelchair Training Does the Pt Use a Wheelchair?: No Exercises Seated Therapy Exercises: Ankle pumps, Long arc quads, Hip flexion Seated Reps: 10 (BLE) Treatments BLE exercises, ambulation, transfers, bed mobility. Assessment Current Status: Good Progress Patient tolerates exercises well. Patient is steady during ambulation, walks within room due to precautions. PT Mcc Goals Mcc Goals PT Rubber Washer Goals Time Frame: Nov 26, 2019 Sit to Lying (QC): 6 Lying-Sitting on Side/Bed(QC): 6 Sit to Stand (QC): 6 Walk 50ft with 2 Turns (QC): 6 Walk 150 ft (QC): 6 PT Plan Problem List Problem List: Activity Tolerance, Functional Strength, Safety, Balance, Gait, Transfer, Bed Mobility, ROM Treatment/Plan Treatment Plan: Continue Plan of Care Treatment Plan: Bed Mobility, Education, Functional Activity Tawanna, Functional Strength, Gait, Safety, Therapeutic Exercise, Transfers Treatment Duration: Nov 26, 2019 Frequency: 6 times per week Estimated Hrs Per Day: .25 hour per day Patient and/or Family Agrees t: Yes Safety Risks/Education Patient Education: Gait Training, Transfer Techniques, Correct Positioning, Safety Issues Teaching Recipient: Patient, Family Teaching Methods: Demonstration, Discussion Response to Teaching: Reinforcement Needed Time/GCodes Time In: 1320 Time Out: 1335 Total Billed Treatment Time: 15 Total Billed Treatment 1 visit FA 15 JOHNNIE TATE PT Nov 22, 2019 13:42
--- NOTE | 2019-11-22 14:14 | Diagnostic Imaging Report ---
INDICATION: Status post heart catheterization. Study is performed to evaluate for pseudoaneurysm. Grayscale, color-flow and duplex Doppler evaluation right groin was performed. Right common femoral artery was patent. Common femoral vein is patent. No hematoma, pseudoaneurysm or AV fistula is detected. IMPRESSION: Unremarkable right groin Doppler evaluation. Dictated by: Dictated on workstation # [id number]
--- NOTE | 2019-11-22 14:18 | NUR ---
1400 DUE TO CHANGES IN STAFFING CARE OF PT TO THIS RN, REPORT RECEIVED AT BEDSIDE FROM Agustin ERNANDEZ RN. PT AWAKE, ALERT, TALKING ON TELEPHONE, RIGHT GROIN SITE NOTED TO BE SOFT WITH LARGE AMOUNT OF BRUISING NOTED. PT VOICES NO C/O OF PAIN OR NEEDS AT THIS TIME, CALL LIGHT AND OTHER PERSONAL ITEMS WITHIN REACH WILL CONTINUE TO MONITOR.
[2019-11-22] MEDS: warFARin 2 MG (COUMADIN) TAB PO SCH (17:48)
[2019-11-22 18:45] VITALS: BP 131/72
[2019-11-22 20:00] VITALS: BP 128/70
[2019-11-22 23:59] VITALS: BP 127/76
[2019-11-23] VITALS (7 sets, daily range): BP systolic 118–145; BP diastolic 64–85
[2019-11-23 04:26] LABS: BASOPHILS % (AUTO) 0 % (0-10); EOSINOPHILS # (AUTO) 0.1 10^3/uL (0.0-0.3); EOSINOPHILS % (AUTO) 2 % (0-10); HEMATOCRIT 30 % (35-52); HEMOGLOBIN 9.7 G/DL (11.5-16.0); LYMPHOCYTES # (AUTO) 1.3 X 10^3 (1.0-4.0); LYMPHOCYTES % (AUTO) 24 % (12-44); MEAN CORPUSCULAR HEMOGLOBIN 29 PG (25-34); MEAN CORPUSCULAR HGB CONC 33 G/DL (32-36); MEAN CORPUSCULAR VOLUME 88 FL (80-99); MEAN PLATELET VOLUME 9.5 FL (7.4-10.4); MONOCYTES # (AUTO) 0.5 X 10^3 (0.0-1.0); MONOCYTES % (AUTO) 9 % (0-12); NEUTROPHILS # (AUTO) 3.7 X 10^3 (1.8-7.8); NEUTROPHILS % (AUTO) 66 % (42-75); PLATELET COUNT 191 10^3/uL (130-400); RED CELL DISTRIBUTION WIDTH 14.6 % (10.0-14.5); WHITE BLOOD COUNT 5.6 10^3/uL (4.3-11.0)
[2019-11-23 04:36] LABS: INR 3.1 (0.8-1.4); PROTHROMBIN TIME PATIENT 33.5 SEC (12.2-14.7)
[2019-11-23 04:42] LABS: BUN/CREATININE RATIO 14; CALCIUM 8.7 MG/DL (8.5-10.1); CARBON DIOXIDE 30 MMOL/L (21-32); CHLORIDE 105 MMOL/L (98-107); CREATININE SERUM 0.66 MG/DL (0.60-1.30); GFR ESTIMATED > 60; GLUCOSE 108 MG/DL (70-105); MAGNESIUM 1.9 MG/DL (1.6-2.4); PHOSPHORUS 2.9 MG/DL (2.3-4.7); POTASSIUM 3.9 MMOL/L (3.6-5.0); SODIUM 141 MMOL/L (135-145)
[2019-11-23] MEDS: CYANOCOBALAMIN 1,000 MCG (VITAMIN B-12) TABLET PO SCH (06:48)
--- NOTE | 2019-11-23 07:50 | Diagnostic Imaging Report ---
EXAMINATION: Chest radiograph, portable AP view. DATE: 11/23/2019 3:53 AM hours. INDICATION: 79-year-old female, history of influenza. Respiratory failure, hypoxia, sepsis. COMPARISON: November 22, 2019. FINDINGS: There is a left-sided cardiac assist device with leads. The leads appear intact. Stable overall appearance of the cardiomediastinal silhouette. There is no identified pneumothorax. There is no large pleural effusion. There is no identified interval focal airspace consolidation. There are predominantly streaky opacities in the left upper lobe which are unchanged. There are also mild streaky opacities in the right medial lung base which are unchanged. IMPRESSION: 1. Unchanged streaky opacities in the left upper lobe and right medial lung base. 2. No interval focal airspace consolidation. Dictated by: Dictated on workstation # [id number]
[2019-11-23] MEDS: CLOPIDOGREL 75 MG (PLAVIX) TABLET PO SCH (08:05)
[2019-11-23] MEDS: meTOprolol TARTRATE 50 MG (LOPRESSOR) TAB PO SCH ×2 (08:05→20:53)
--- NOTE | 2019-11-23 09:27 | Cardiology Progress Note ---
Subjective Date Seen by Provider: Nov 23, 2019 Time Seen by Provider: 09:23 Subjective/Events-last exam Patient is laying down in bed, denied any chest pain, having groin pain. Review of Systems General: No Chills, No Night Sweats, No Fatigue, No Malaise, No Appetite, No Other HEENT: No Head Aches, No Visual Changes, No Eye Pain, No Ear Pain, No Dysphasia, No Sinus Congestion, No Post Nasal Drip, No Sore Throat, No Other Pulmonary: No Dyspnea, No Cough, No Pleuritic Chest Pain, No Other Cardiovascular: No: Chest Pain, Palpitations, Orthopnea, Paroxysmal Noc. Dyspnea, Edema, Lt Headedness, Other Focused Exam Time of Focused Exam: 04:54 Objective-Cardiology Exam Last Set of Vital Signs Vital Signs 11/22/19 21:00 FiO2 96 Capillary Refill : NONE I&O Intake and Output 11/23/19 00:00 Intake Total 815 ml Output Total 1125 ml Balance -310 ml Intake Oral 815 ml Output Urine Total 1125 ml General: Alert, Oriented X3, Cooperative HEENT: Atraumatic, PERRLA Neck: Supple, No JVD, No Thyromegaly Lungs: Clear to Auscultation, Normal Air Movement Heart: Regular Rate, Normal S1, Normal S2, No Murmurs Abdomen: Normal Bowel Sounds, Soft, No Tenderness, No Hepatosplenomegaly, No Masses Extremities: No Clubbing, No Cyanosis, No Edema, Normal Pulses, No Tenderness/Swelling Skin: No Rashes, No Breakdown, No Significant Lesion Neuro: Normal Gait, Normal Speech, Strength at 5/5 X4 Ext, Normal Tone, Sensation Intact Psych/Mental Status: Mental Status NL, Mood NL Results Lab Laboratory Tests 11/23/19 04:01 A/P-Cardiology Admission Diagnosis Non-ST elevation myocardial infarction Coronary artery disease Congestive heart failure Chronic atrial fibrillation Assessment/Plan Coronary artery disease, non-ST elevation myocardial infarction, multivessel disease, cardiac catheterization done on November 20, 2019, complex intervention for severe in-stent restenosis. Improved. Need staged intervention, scheduled with Dr. Valenzuela Large right groin hematoma and pseudoaneurysm, improving slowly. Continue to monitor. Monitor H&H Influenza, better improving. Continue to monitor Congestive heart failure, chronic compensated left ventricular systolic dysfunction, ischemic cardiomyopathy, ejection fraction 40-45 percent Chronic atrial fibrillation, continue to monitor heart rate History of permanent pacemaker, Medtronic placed at [facility] by Dr. Keller in 2017. 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
--- NOTE | 2019-11-23 10:09 | Progress Note - Hospitalist ---
Subjective HPI/CC On Admission Date Seen by Provider: Nov 23, 2019 Time Seen by Provider: 09:45 Influenza + NSTEMI Subjective/Events-last exam Patient is actually a little bit more cheerful this morning. She has no complaints and had a good night. She is looking forward to going home on Monday. We discussed getting her catheter out but she does note she has incontinence. Review of Systems Genitourinary: Incontinence Neurological: Weakness Focused Exam Time of Focused Exam: 04:54 Objective Exam Vital Signs Vital Signs Date Time Temp Pulse Resp B/P (MAP) Pulse Ox O2 Delivery O2 Flow Rate FiO2 11/23/19 08:00 36.5 65 18 142/67 (92) 95 Nasal Cannula 3.00 11/22/19 21:00 96 Capillary Refill : NONE General Appearance: No Apparent Distress, WD/WN HEENT: Other (Poor dentition) Neck: Limited Range of Motion Respiratory: Lungs Clear, Normal Breath Sounds, No Accessory Muscle Use, No Respiratory Distress Cardiovascular: Systolic Murmur, Irregularly Irregular Gastrointestinal: No Organomegaly, Non Tender, Soft Rectal: Deferred Extremity: No Pedal Edema Neurologic/Psychiatric: Alert, Oriented x3, No Motor/Sensory Deficits, Normal Mood/Affect Results/Procedures Lab Laboratory Tests 11/23/19 04:01 Patient resulted labs reviewed. Assessment/Plan Assessment and Plan Assess & Plan/Chief Complaint NSTEMI-status post angioplasty to the LAD s/p cath with intervention Flu-finished with Tamiflu Wheezing-on pulmonary toilet and Omnicef [place] - physical therapy Constipation we'll give her Dulcolax Status post bleed from catheterization site in the groin with transfusion with 1 unit of blood-hemoglobin stable at 9.7 Will DC her Mand[place]ano catheter and plan on discharge Monday. D/c planning per PT and cardiology Clinical Quality Measures DVT/VTE Risk/Contraindication: Risk Factor Score Per Nursin RFS Level Per Nursing on Admit: 4+=Very High BEATRIZ HALL MD Nov 23, 2019 10:09
[2019-11-23] MEDS: warFARin 2 MG (COUMADIN) TAB PO SCH (18:44)
[2019-11-23] MEDS: ACETAMINOPHEN 500 MG TAB (TYLENOL) PO PRN (18:45)
[2019-11-23] MEDS: RT-ALBUTEROL/IPRATROPIUM 3 ML (DUONEB) VIAL INH PRN (19:12)
[2019-11-24 04:00] VITALS: BP 141/82
[2019-11-24 04:17] LABS: BASOPHILS % (AUTO) 0 % (0-10); EOSINOPHILS # (AUTO) 0.1 10^3/uL (0.0-0.3); EOSINOPHILS % (AUTO) 2 % (0-10); HEMATOCRIT 29 % (35-52); HEMOGLOBIN 9.4 G/DL (11.5-16.0); LYMPHOCYTES # (AUTO) 1.2 X 10^3 (1.0-4.0); LYMPHOCYTES % (AUTO) 19 % (12-44); MEAN CORPUSCULAR HGB CONC 32 G/DL (32-36); MEAN CORPUSCULAR VOLUME 88 FL (80-99); MEAN PLATELET VOLUME 9.7 FL (7.4-10.4); MONOCYTES # (AUTO) 0.6 X 10^3 (0.0-1.0); MONOCYTES % (AUTO) 10 % (0-12); NEUTROPHILS # (AUTO) 4.3 X 10^3 (1.8-7.8); NEUTROPHILS % (AUTO) 69 % (42-75); PLATELET COUNT 235 10^3/uL (130-400); RED CELL DISTRIBUTION WIDTH 14.5 % (10.0-14.5); WHITE BLOOD COUNT 6.2 10^3/uL (4.3-11.0)
[2019-11-24 04:40] LABS: INR 3.1 (0.8-1.4); PROTHROMBIN TIME PATIENT 33.2 SEC (12.2-14.7)
[2019-11-24 04:48] LABS: BUN/CREATININE RATIO 14; CALCIUM 8.9 MG/DL (8.5-10.1); CARBON DIOXIDE 26 MMOL/L (21-32); CHLORIDE 107 MMOL/L (98-107); CREATININE SERUM 0.58 MG/DL (0.60-1.30); GFR ESTIMATED > 60; GLUCOSE 96 MG/DL (70-105); MAGNESIUM 1.9 MG/DL (1.6-2.4); PHOSPHORUS 3.1 MG/DL (2.3-4.7); POTASSIUM 3.5 MMOL/L (3.6-5.0); SODIUM 140 MMOL/L (135-145)
[2019-11-24 05:37] LABS: MEAN CORPUSCULAR HEMOGLOBIN 28 PG (25-34)
[2019-11-24] MEDS: CYANOCOBALAMIN 1,000 MCG (VITAMIN B-12) TABLET PO SCH (06:32)
--- NOTE | 2019-11-24 07:29 | Diagnostic Imaging Report ---
INDICATION: Respiratory failure and hypoxia. COMPARISON: 11/23/2019 FINDINGS: There is cardiomegaly and mild venous congestion. Pacemaker overlies the left hemithorax. There is no pleural effusion, pneumothorax or pneumonia. Mediastinum is unremarkable. IMPRESSION: 1. Cardiomegaly. 2. Mild central pulmonary venous congestion. Dictated by: Dictated on workstation # [id number]
[2019-11-24] MEDS: meTOprolol TARTRATE 50 MG (LOPRESSOR) TAB PO SCH (07:43)
[2019-11-24] MEDS: CLOPIDOGREL 75 MG (PLAVIX) TABLET PO SCH (07:43)
[2019-11-24 07:45] VITALS: BP 145/69
--- NOTE | 2019-11-24 09:22 | Cardiology Progress Note ---
Subjective Date Seen by Provider: Nov 24, 2019 Time Seen by Provider: 09:21 Subjective/Events-last exam Patient is laying down in bed. Still having cough and shortness of breath Review of Systems General: No Chills, No Night Sweats, No Fatigue, No Malaise, No Appetite, No Other HEENT: No Head Aches, No Visual Changes, No Eye Pain, No Ear Pain, No Dysphasia, No Sinus Congestion, No Post Nasal Drip, No Sore Throat, No Other Pulmonary: Dyspnea, Cough; No Pleuritic Chest Pain, No Other Cardiovascular: No: Chest Pain, Palpitations, Orthopnea, Paroxysmal Noc. Dyspnea, Edema, Lt Headedness, Other Focused Exam Time of Focused Exam: 04:54 Objective-Cardiology Exam Last Set of Vital Signs Vital Signs 11/23/19 11/24/19 11/24/19 11/24/19 09:00 04:00 07:45 07:49 Temp 36.2 Pulse 70 Resp 20 B/P (MAP) 145/69 (94) Pulse Ox 94 O2 Delivery Nasal Cannula O2 Flow Rate 1.00 FiO2 96 Capillary Refill : NONE I&O Intake and Output 11/24/19 00:00 Intake Total 950 ml Output Total 400 ml Balance 550 ml Intake Oral 950 ml Output Urine Total 300 ml Post Void Residual 100 ml # Voids 2 # Bowel Movements 1 General: Alert, Oriented X3, Cooperative HEENT: Atraumatic, PERRLA Neck: Supple, No JVD, No Thyromegaly Lungs: Normal Air Movement, Other (Bilateral wheezing) Heart: Regular Rate, Normal S1, Normal S2, No Murmurs Abdomen: Normal Bowel Sounds, Soft, No Tenderness, No Hepatosplenomegaly, No Masses Extremities: No Clubbing, No Cyanosis, No Edema, Normal Pulses, No Tenderness/Swelling Skin: No Rashes, No Breakdown, No Significant Lesion Neuro: Normal Gait, Normal Speech, Strength at 5/5 X4 Ext, Normal Tone, Sensation Intact Psych/Mental Status: Mental Status NL, Mood NL Results Lab Laboratory Tests 11/24/19 03:37 11/24/19 03:39 A/P-Cardiology Admission Diagnosis Non-ST elevation myocardial infarction Coronary artery disease Congestive heart failure Chronic atrial fibrillation Assessment/Plan Coronary artery disease, non-ST elevation myocardial infarction, multivessel disease, cardiac catheterization done on November 20, 2019, complex intervention for severe in-stent restenosis. Improved. Need staged intervention, scheduled with Dr. Valenzuela Large right groin hematoma and pseudoaneurysm, improving slowly. Continue to monitor. Monitor H&H Influenza, finished her Tamiflu dose, still having some wheezing and cough and shortness of breath. Will use bronchodilators. Congestive heart failure, chronic compensated left ventricular systolic dysfunction, ischemic cardiomyopathy, ejection fraction 40-45 percent Chronic atrial fibrillation, continue to monitor heart rate History of permanent pacemaker, Medtr[employer] placed at [facility] by Dr. Keller in 2017. 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
[2019-11-24] MEDS: RT-ALBUTEROL/IPRATROPIUM 3 ML (DUONEB) VIAL INH PRN (09:30)
--- NOTE | 2019-11-24 11:38 | Discharge Summary ---
Diagnosis/Chief Complaint Date of Admission Nov 17, 2019 at 04:50 Date of Discharge November 24, 2019 Discharge Date: Nov 24, 2019 Discharge Time: 14:00 Admission Diagnosis Assessment: Influenza A Acute CHF with elevated BNP Hypoxia new onset NSTEMI AF Pacemaker OAC on Coumadin CAD stents PVD right carotid artery stent Plan: ICU Tamiflu Dr Valenzuela consult appreciated Primary Care Self,Greg CASTELLON Discharge Diagnosis Non-ST segment elevation TN status post angioplasty to the mid LAD Pseudoaneurysm formation right femoral artery Influenza A Hypoxia Coronary artery disease CHF with an ejection fraction of 40 percent AF -on Coumadin Pacemaker OAC on Coumadin CAD previous stents PVD right carotid artery stent (1) Hypoxia Status: Acute (2) Nausea and vomiting Status: Acute (3) Influenza Status: Acute (4) Atrial fibrillation (5) CAD (coronary artery disease) (6) PVD (peripheral vascular disease) (7) Pacemaker (8) NSTEMI (non-ST elevated myocardial infarction) (9) Elevated brain natriuretic peptide (BNP) level (10) Anticoagulated on Coumadin (11) History of right common carotid artery stent placement Discharge Summary Procedures/Consulations Angioplasty Dr. Lizette Marie Discharge Physical Exam Allergies: Coded Allergies: Penicillins (Unverified Allergy, Unknown, 11/17/19) Vitals & I&Os Vital Signs Date Time Temp Pulse Resp B/P (MAP) Pulse Ox O2 Delivery O2 Flow Rate FiO2 11/24/19 09:32 97 Nasal Cannula 3.00 11/24/19 07:45 70 20 145/69 (94) 11/24/19 04:00 36.2 11/23/19 09:00 96 General Appearance: No Apparent Distress, WD/WN HEENT: Other (Poor dentition) Respiratory: Chest Non Tender, Lungs Clear, Normal Breath Sounds, No Accessory Muscle Use, No Respiratory Distress Cardiovascular: No Gallop, Systolic Murmur, Irregularly Irregular Gastrointestinal: Normal Bowel Sounds, Non Tender, Soft Extremity: Normal Capillary Refill, No Calf Tenderness Skin: Normal Color, Warm/Dry Neurologic/Psychiatric: Alert, Oriented x3, Normal Mood/Affect, carbon setter II-XII Norm as Tested Hospital Course Was the Problem List Reviewed?: Yes This is an 79-year-old white female who presented with increased shortness of breath and influenza A.. In addition the patient had a non-ST segment elevation TN. She underwent a cardiac catheter by Dr. Bauer who successfully balloon angioplastied the mid LAD with previous stents had been placed. The patient developed a pseudoaneurysm of the right groin with a hematoma formation. She did drop her hemoglobin and had to be transferred with 1 unit of blood. At the time of discharge she seemed much better up walking with a walker and is on room air. INR is approximately 3. She is instructed to follow-up with Dr. Bauer next week for further evaluation of her right groin and plans for possible angioplasty or cardiac catheter of lesions. Labs (last 24 hrs) Laboratory Tests 11/24/19 03:37: Prothrombin Time 33.2H, INR Comment 3.1H, Sodium Level 140, Potassium Level 3.5L , Chloride Level 107, Carbon Dioxide Level 26, Anion Gap 7, Blood Urea Nitrogen 8, Creatinine 0.58L, Estimat Glomerular Filtration Rate > 60, BUN/Creatinine Ratio 14, Glucose Level 96, Calcium Level 8.9, Phosphorus Level 3.1, Magnesium Level 1.9 11/24/19 03:39: White Blood Count 6.2, Red Blood Count 3.30L, Hemoglobin 9.4L, Hematocrit 29L, Mean Corpuscular Volume 88, Mean Corpuscular Hemoglobin 28, Mean Corpuscular Hemoglobin Concent 32, Red Cell Distribution Width 14.5, Platelet Count 235, Mean Platelet Volume 9.7, Neutrophils (%) (Auto) 69, Lymphocytes (%) (Auto) 19, Monocytes (%) (Auto) 10, Eosinophils (%) (Auto) 2, Basophils (%) (Auto) 0, Neutrophils # (Auto) 4.3, Lymphocytes # (Auto) 1.2, Monocytes # (Auto) 0.6, Eosinophils # (Auto) 0.1, Basophils # (Auto) 0.0 Microbiology 11/17/19 MRSA Screen - Final, Complete MRSA not isolated 11/17/19 Blood Culture - Final, Complete No growth 11/17/19 Urine Culture - Final, Complete 3 or more isolates Patient resulted labs reviewed. Imaging: Reviewed Imaging Report Discussion & Recommendations Discharge Planning: >30 minutes discharge planning Discharge Home Medications: Active Scripts Active Reported Potassium Chloride 20 Meq Tab.er.prt 20 Meq PO DAILY Myrbetriq (Mirabegron) 25 Mg Tab.er.24h 25 Mg PO DAILY Tramadol HCl 50 Mg Tablet 50 Mg PO Q6H PRN Calcium Carbonate 600 Mg Tablet 600 Mg PO DAILY Coumadin (Warfarin Sodium) 1 Mg Tablet 1.5 Mg PO MON,MON,MON,MON,SAT 1.5MG PO ON MON,,, MON AND SAT Coumadin (Warfarin Sodium) 1 Mg Tablet 1 Mg PO MON,MON 1MG PO ON MONDAY AND MONDAY Nitroglycerin 0.4 Mg Tab.subl 0.4 Mg SL NEEDED Lisinopril 20 Mg Tablet 20 Mg PO DAILY Cartia Xt (Diltiazem HCl) 180 Mg Cap.er.24h 180 Mg PO DAILY Vitamin B-12 (Cyanocobalamin) 100 Mcg Tablet 1,000 Mcg PO DAILY Plavix (Clopidogrel Bisulfate) 75 Mg Tablet 75 Mg PO DAILY Vitamin D3 (Cholecalciferol (Vitamin D3)) 2,000 Unit Tablet 2,000 Unit PO DAILY Coreg (Carvedilol) 6.25 Mg Tablet 6.25 Mg PO BID Lipitor (Atorvastatin Calcium) 40 Mg Tablet 40 Mg PO DAILY Acetaminophen 325 Mg Tablet 650 Mg PO Q6H PRN Condition at discharge Stable Instructions to patient/family Please see electronic discharge instructions given to patient. Clinical Quality Measures DVT/VTE Risk/Contraindication: Risk Factor Score Per Nursin RFS Level Per Nursing on Admit: 4+=Very High Copy Copies To 1: SELFGREG MD Problem Qualifiers (1) Nausea and vomiting: Vomiting type: unspecified Vomiting Intractability: non-intractable Qualified Codes: R11.2 - Nausea with vomiting, unspecified SANDNESS,BEATRIZ Ballard MD Nov 24, 2019 11:38
[2019-11-24 12:00] VITALS: BP 129/80
== END 2019-11-24 13:15 | disposition home or self-care (01) | DRG 250 ==
LOC: EDUNIT# 02:28 → ER 02:30 → ICU 04:50 → CSD 11-19 11:25
PROVIDERS: ADMIT Internal Medicine; ATTEND Internal Medicine
PROC: 02703ZZ Dilation of Coronary Artery, One Artery, Percutaneous Approach (ICD-10-PCS; principal; 2019-11-20)
PROC: 4A023N7 Measurement of Cardiac Sampling and Pressure, Left Heart, Percutaneous Approach (ICD-10-PCS; 2019-11-20)
PROC: B2111ZZ Fluoroscopy of Multiple Coronary Arteries using Low Osmolar Contrast (ICD-10-PCS; 2019-11-20)
PROC: B2151ZZ Fluoroscopy of Left Heart using Low Osmolar Contrast (ICD-10-PCS; 2019-11-20)
PROC: B3101ZZ Fluoroscopy of Thoracic Aorta using Low Osmolar Contrast (ICD-10-PCS; 2019-11-20)
DX: T82.855A Stenosis of coronary artery stent, initial encounter (principal); I21.4 Non-ST elevation (NSTEMI) myocardial infarction; I97.630 Postprocedural hematoma of a circulatory system organ or structure following a cardiac catheterization; J10.00 Influenza due to other identified influenza virus with unspecified type of pneumonia; I11.0 Hypertensive heart disease with heart failure; I50.22 Chronic systolic (congestive) heart failure; I48.20 Chronic atrial fibrillation, unspecified; R09.02 Hypoxemia; D50.0 Iron deficiency anemia secondary to blood loss (chronic); I69.354 Hemiplegia and hemiparesis following cerebral infarction affecting left non-dominant side; I25.5 Ischemic cardiomyopathy; I25.10 Atherosclerotic heart disease of native coronary artery without angina pectoris; K59.00 Constipation, unspecified; I08.1 Rheumatic disorders of both mitral and tricuspid valves; E78.00 Pure hypercholesterolemia, unspecified; I73.9 Peripheral vascular disease, unspecified; R53.1 Weakness; R41.3 Other amnesia; F03.90 Unspecified dementia, unspecified severity, without behavioral disturbance, psychotic disturbance, mood disturbance, and anxiety; F41.9 Anxiety disorder, unspecified; F32.9 Major depressive disorder, single episode, unspecified; E87.6 Hypokalemia; R91.8 Other nonspecific abnormal finding of lung field; Z95.5 Presence of coronary angioplasty implant and graft; Z95.828 Presence of other vascular implants and grafts; Z79.01 Long term (current) use of anticoagulants; Z95.0 Presence of cardiac pacemaker; Z91.81 History of falling; I25.82 Chronic total occlusion of coronary artery; R32 Unspecified urinary incontinence
CPT/HCPCS: 36415; 36600; 70450; 71045; 72125; 80048; 80053; 81000; 82805; 83605; 83735; 83880; 84100; 84145; 84484; 85025; 85027; 85610; 85730; 86850; 86900; 86901; 86920; 87040; 87081; 87088; 87804; 93005; 93306; 93458; 93567; 93926; 94640; 94760; 96361; 96365; 96375

== ENCOUNTER 2020-03-03 07:13 | Day surgery (SDC) | payer MEDICARE ==
[2020-03-03] VITALS (20 sets, daily range): BP systolic 86–180; BP diastolic 55–114
[~2020-03-03] VITALS: Ht 166 cm; Wt 73.5 kg
[~2020-03-03 07:13] MED LIST: ACET325T49 PO; ATOR40TA PO; CALC600T80 PO; CARV6.25 PO; CHOL2000 PO; CHOL200025 PO; CLOP75TA69 PO; CYAN100T3 PO; DILT180C54 PO; LISI-552 PO; MIRA25TA PO; NITR0.4T42 SL; POTA20TA15 PO; TOLT4CAP13 PO; TOLTA4 PO; TRAM50TA3 PO; WARF1TAB PO
[2020-03-03] MEDS ORDERED: NS IV 1000 ML 1,000 ML ONE (07:20)
[2020-03-03] MEDS ORDERED: LIDOCAINE 1% INJ 20 ML 20 ML VIAL ONE (07:20)
[2020-03-03] MEDS ORDERED: HEParin (CATH LAB) 2,000 ML IV ONE (07:20)
[2020-03-03] MEDS ORDERED: NS IV 1000 ML 1,000 ML IV SCH ×2 (07:30→10:41)
[2020-03-03 08:02] LABS: MEAN PLATELET VOLUME 9.6 FL (7.4-10.4); WHITE BLOOD COUNT 7.2 10^3/uL (4.3-11.0)
[2020-03-03 08:05] LABS: PROTHROMBIN TIME PATIENT 23.2 SEC (12.2-14.7)
[2020-03-03 08:11] LABS: ALANINE AMINOTRANSFERASE 12 U/L (0-55); ALBUMIN 4.1 GM/DL (3.2-4.5); ALKALINE PHOSPHATASE 125 U/L (40-136); BILIRUBIN,TOTAL 0.6 MG/DL (0.1-1.0); BUN/CREATININE RATIO 17; CALCIUM 9.8 MG/DL (8.5-10.1); CARBON DIOXIDE 21 MMOL/L (21-32); CHLORIDE 109 MMOL/L (98-107); CHOLESTEROL 125 MG/DL (< 200); CREATININE SERUM 0.75 MG/DL (0.60-1.30); GFR ESTIMATED > 60; GLUCOSE 120 MG/DL (70-105); HDL CHOLESTEROL 52 MG/DL (40-60); SODIUM 141 MMOL/L (135-145); TOTAL PROTEIN 7.7 GM/DL (6.4-8.2); TRIGLYCERIDES 99 MG/DL (<150); VLDL CHOLESTEROL 20 MG/DL (5-40)
[2020-03-03] MEDS ORDERED: HEParin 1000 UNIT/ML (10ML VIAL) FOR BOLUS ONE (08:25)
[2020-03-03] MEDS ORDERED: MIDAZOLAM 5 MG/5 ML (VERSED) VIAL ONE (08:25)
[2020-03-03] MEDS ORDERED: NITRO DRIP 25000 MCG/D5W 250 ML IV ONE (08:25)
[2020-03-03] MEDS ORDERED: fentaNYL INJECTION 100 MCG/2 ML AMP ONE ×2 (08:25→15:54)
[2020-03-03] MEDS ORDERED: EPTIFIBATIDE BOLUS 20 ML IV ONE (09:04)
[2020-03-03] MEDS ORDERED: ASPIRIN 81 MG CHEW (CHILDREN'S ASA) ONE (10:39)
[2020-03-03] MEDS ORDERED: CLOPIDOGREL 75 MG (PLAVIX) TABLET ONE (10:39)
--- NOTE | 2020-03-03 10:41 | Cardiac Procedure Note-CS/ASA ---
Pre-Procedure Note Pre-Op Procedure Note H&P Reviewed The H&P was reviewed, patient examined and no changes noted. Date H&P Reviewed: Mar 03, 2020 Time H&P Reviewed: 08:50 Conscious Sedation Pre-Proced Time 08:50 ASA Score 3 For ASA 3 and 4: Consider anesthesia and medical clearance. Also, for patients with a history of failed moderate sedation consider anesthesia. Airway Lungs Heart ASA score ASA 1: a normal healthy patient ASA 2: a patient with a mild systemic disease (mid diabetes, controlled hypertension, obesity ASA 3: a patient with a severe systemic disease that limits activity (angina, COPD, prior Myocardial infarction) ASA 4: a patient with an incapacitating disease that is a constant threat to life (CHF, renal failure) ASA 5: a moribund patient not expected to survive 24 hrs. (ruptured aneurysm) ASA 6: a declared brain- patient whose organs are being harvested. For emergent operations, add the letter E after the classification Mallampati Classification Grade 2 Sedation Plan Analgesia, Amnesia, Plan communicated to team members, Discussed options with patient/fam, Discussed risks with patient/fam The patient is an appropriate candidate to undergo the planned procedure, sedation, and anesthesia. The patient immediately re-assessed prior to indication. ANDREINA LEAHY MD FACP FAC CCDS Mar 03, 2020 10:41
[2020-03-03] MEDS ORDERED: PATIENT MAY USE OWN MEDS, ALL PO SCH (10:45)
[2020-03-03] MEDS ORDERED: ACETAMINOPHEN 325 MG TABLET PO PRN (10:45)
--- NOTE | 2020-03-03 11:00 | NUR ---
Pt arrived to ICU at this time to room 9. VSS on arrival. Left groin site/ sheath remains intact at this time with small hematoma noted to site on arrival. Report received from cathead operator staff at this time. Will await PTT results per protocol and remove sheath post results. Will continue to monitor.
--- NOTE | 2020-03-03 11:18 | CARDIAC CATHETERIZATION ---
DATE OF SERVICE: 03/03/2020 CARDIAC CATHETERIZATION AND CORONARY INTERVENTION REPORT The patient is an 79-year-old lady who is known to have coronary artery disease. About a week ago, she underwent balloon angioplasty for extensive instent restenosis of the left anterior descending. At that time, she was noted to have 99% stenosis in the proximal portion of the second obtuse marginal branch. Intervention was attempted. It was not successful. Today, she comes in for repeat coronary evaluation and another attempt at coronary intervention. Informed consent was obtained. DESCRIPTION OF PROCEDURE: She was brought to the cardiac catheterization laboratory in a fasting state. Right groin was prepared and draped in the usual sterile fashion. Lidocaine 1% was used for local anesthesia. Modified Seldinger technique was used to advance a 6-Portuguese sheath into the left femoral artery. She is chronically on warfarin. INR at the beginning of the day was 2(low therapeutic). We used a 6-Portuguese contralateral support Guide catheter to engage the left coronary system and angiogram revealed that the balloon angioplasty in the left anterior descending artery was still showing good result and there was 99% stenosis in the proximal portion of the second obtuse marginal. We gave 2500 units of intravenous heparin and double bolus Integrilin and advanced a 300 cm Whisper extra support wire across the lesion with moderate difficulty. We tried multiple balloons, and these would not advance. Finally, we were able to advance a 1.5 x 8 mm balloon and balloon angioplasty was carried out through the site of 99% stenosis. Multiple balloon inflations were carried out. Subsequently, we carried out balloon angioplasty with Emerge 2.0 x 15 mm balloon. We then tried to advance a stent across the lesion, but this was not possible. We then carried out another balloon inflation with Emerge 2.0 x 20 mm balloon. We then tried to advance the shortest possible stent (Resolute 2.5 x 8 mm), but were not able to advance it. This is primarily because the proximal artery is heavily calcified and tortuous and does not allow advancement of the stent. Following balloon angioplasty, however, the antegrade flow has improved from CODY 2 to CODY 3 and the stenosis has been reduced from 99% to approximately 50%. Given these results and multiple attempts advancing the stents, which had not been successful and given that she had received approximately 30 minutes of fluoroscopy time, we felt that the balloon angioplasty results were adequate and we did not make further attempts at stent advancement. She tolerated the procedure well. The angioplasty equipment was removed. The sheath was sutured in place. She was transferred to the floor for manual sheath removal. CORONARY ANGIOGRAPHY: Left main coronary artery is free of significant obstructive disease. Left anterior descending artery is extensively stented and exhibits approximately 30% to 40% diffuse in-stent restenosis. The second obtuse marginal branch of the left circumflex artery had 99% proximal stenosis with CODY 2 antegrade flow. Following balloon angioplasty, the stenosis is approximately 50% and the antegrade flow is CODY 3. CONCLUSIONS: Successful balloon angioplasty of 99% proximal stenosis of the second obtuse marginal with reduction of stenosis to approximately 50% and improvement of flow from CODY 2 to CODY 3. Job ID: [id number] DocumentID: [id number] Dictated Date: 03/03/2020 10:33:11 Car Rental Sales Assistant Date: 03/03/2020 11:17:50 Dictated By: ANDREINA LEAHY MD, MA, FACP, FACC, MTDD
[2020-03-03] MEDS ORDERED: ATROPINE 1.2 MG/3 ML (0.4 MG/ML) SYR ONE ×2 (13:20→16:02)
[2020-03-03] MEDS: fentaNYL INJECTION 100 MCG/2 ML AMP IVP PRN ×5 (16:00→20:57)
--- NOTE | 2020-03-03 16:51 | NUR ---
RN called to pt's room d/t hypotension noted by MT. Pressure applied to left groin site. Hematoma noted at site with bruising. Pain medications also administered by staff at this time. Dr. Valenzuela notified. Will continue to monitor.
[2020-03-03] MEDS: CARVEDILOL 6.25 MG (COREG) TAB PO SCH (20:57)
[2020-03-04] VITALS (12 sets, daily range): BP systolic 102–126; BP diastolic 57–70
[2020-03-04 02:57] LABS: HEMOGLOBIN 10.2 G/DL (11.5-16.0); MEAN PLATELET VOLUME 9.5 FL (7.4-10.4); WHITE BLOOD COUNT 8.4 10^3/uL (4.3-11.0)
[2020-03-04 03:09] LABS: CHLORIDE 108 MMOL/L (98-107); POTASSIUM 4.1 MMOL/L (3.6-5.0); SODIUM 139 MMOL/L (135-145)
[2020-03-04 03:10] LABS: CALCIUM 8.6 MG/DL (8.5-10.1)
[2020-03-04 03:11] LABS: GLUCOSE 116 MG/DL (70-105)
[2020-03-04 03:12] LABS: CARBON DIOXIDE 22 MMOL/L (21-32)
[2020-03-04 03:15] LABS: CREATININE SERUM 0.62 MG/DL (0.60-1.30); GFR ESTIMATED > 60
[2020-03-04 03:16] LABS: BUN/CREATININE RATIO 13
[2020-03-04] MEDS ORDERED: CYANOCOBALAMIN 1,000 MCG (VITAMIN B-12) TABLET PO SCH (07:00)
[2020-03-04] MEDS ORDERED: VITAMIN D3 25 MCG (1,000 UNITS) TABLET PO SCH (07:00)
[2020-03-04] MEDS ORDERED: CALCIUM CARBONATE 600 MG (CALCARB) TAB PO SCH (07:00)
--- NOTE | 2020-03-04 08:03 | Progress Note - Cardiology ---
Cardiology SOAP Progress Note Objective: I&O/Vital Signs 03/03/20 03/03/20 03/03/20 03/03/20 20:09 21:04 22:00 23:00 Temp 36.4 Pulse 75 71 66 Resp 24 13 B/P (MAP) 133/69 (90) 99/61 (74) 93/56 (68) Pulse Ox 97 93 93 O2 Delivery Nasal Cannula Nasal Cannula Nasal Cannula O2 Flow Rate 2.00 2.00 2.00 03/04/20 03/04/20 03/04/20 03/04/20 00:00 00:00 00:01 00:14 Temp 36.2 Pulse 71 Resp 14 B/P (MAP) 108/57 (74) Pulse Ox 94 O2 Delivery Room Air Nasal Cannula Room Air O2 Flow Rate 2.00 03/04/20 03/04/20 03/04/20 03/04/20 01:00 01:08 02:00 03:00 Pulse 72 73 71 62 Resp 25 17 23 B/P (MAP) 102/65 (77) 102/61 (75) 119/68 (85) Pulse Ox 94 90 93 O2 Delivery Nasal Cannula Nasal Cannula Nasal Cannula O2 Flow Rate 2.00 2.00 2.00 03/04/20 03/04/20 03/04/20 03/04/20 03:58 04:00 05:00 06:00 Pulse 60 61 60 Resp 25 14 11 B/P (MAP) 124/62 (82) 122/70 (87) 119/57 (77) Pulse Ox 94 96 94 O2 Delivery Room Air Nasal Cannula Nasal Cannula Nasal Cannula O2 Flow Rate 2.00 2.00 2.00 03/04/20 00:00 Intake Total 200 ml Output Total 100 ml Balance 100 ml Results/Procedures: Labs Laboratory Tests 03/03/20 12:40: Activated Partial Thromboplast Time 40H 03/04/20 01:50: White Blood Count 8.4, Red Blood Count 3.62L, Hemoglobin 10.2#L, Hematocrit 32L, Mean Corpuscular Volume 88, Mean Corpuscular Hemoglobin 28, Mean Corpuscular Hemoglobin Concent 32, Red Cell Distribution Width 15.0H, Platelet Count 245, Mean Platelet Volume 9.5 03/04/20 02:34: Sodium Level 139, Potassium Level 4.1, Chloride Level 108H, Carbon Dioxide Level 22, Anion Gap 9, Blood Urea Nitrogen 8, Creatinine 0.62, Estimat Glomerular Fi ltration Rate > 60, BUN/Creatinine Ratio 13, Glucose Level 116H, Calcium Level 8.6 Microbiology 03/03/20 MRSA Screen - Final, Complete MRSA not isolated Laboratory Tests 03/03/20 07:40 03/04/20 01:50 03/04/20 02:34 Procedures S/P cardiac cath with successful intervention on 03-03-2020. Please refer to cardiac cath report of the same date for details. A/P: Assessment: Card cath of 02/25/20: Up to 99% instent restenosis in a previously extensively stented LAD that was treated with PTCA with reduction of stenosis to less than 30%. 99% prox/mid LCX stenosis to which PCI was unsuccessful on 02/25/20. The right coronary artery is extensively stented and has moderate, diffuse disease. The patient's stents are known to be Synergy 4.0 x 38 and 3.5 x 38 in the right coronary and Synergy 3.5 x 28 and 3.0 x 16 in the left anterior descending (done 01/2017 in [place]). Well-preserved global left ventricular systolic function with ejection fraction approximately 50-55%. Hypokinesis to akinesis of the apex of the left ventricle. Normal left ventricular end-diastolic pressure Most recent cardiac cath of March 03, 2020: Successful balloon angioplasty of 99% proximal stenosis of the second obtuse marginal with reduction of stenosis to approximately 50% and improvement of flow from CODY 2 to CODY 3. Echo of 11/18/19: LVEF 40-45%, apical and basal inf hypokinesis, biatrial enlargement, mod MR, mod to sev TR, RVSP 35 mmHg R groin hematoma and 1 cm pseudoaneurysm of the R femoral and blood-loss anemia following card cath of 11/20/19; treated 30-minute manual pressure and 1 unit PRBC on 11/21/19 Chronic A Fib S/p Medtronic dual chamber pacemaker in 2017 at ([facility] - Dr Pierce) Chronic warfarin anticoag - managed by her PCP Jeison soares. 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 She does not recall the date of her stroke Gen weakness and limited ambulation Poor memory CRIS OSBORN Mar 04, 2020 08:03
[2020-03-04] MEDS ORDERED: CLOPIDOGREL 75 MG (PLAVIX) TABLET PO SCH (09:00)
[2020-03-04] MEDS ORDERED: ASPIRIN 81 MG CHEW (CHILDREN'S ASA) PO SCH (09:00)
[2020-03-04] MEDS ORDERED: lisINopril 20 MG (PRINIVIL) TABLET PO SCH (09:00)
[2020-03-04] MEDS ORDERED: TOLTERODINE LA 4 MG (DETROL) CAP PO SCH (09:00)
[2020-03-04] MEDS: CARVEDILOL 6.25 MG (COREG) TAB PO SCH (09:12)
--- NOTE | 2020-03-04 09:38 | Progress Note - Cardiology ---
Cardiology SOAP Progress Note Subjective: Lying in bed. C/O left groin discomfort with gentle palpation. No c/o CP, palpitations, dyspnea, syncope or near syncope. States she feels good this morning. Objective: I&O/Vital Signs 03/03/20 03/03/20 03/04/20 03/04/20 22:00 23:00 00:00 00:00 Pulse 71 66 71 Resp 24 13 14 B/P (MAP) 99/61 (74) 93/56 (68) 108/57 (74) Pulse Ox 93 93 94 O2 Delivery Nasal Cannula Nasal Cannula Room Air Nasal Cannula O2 Flow Rate 2.00 2.00 2.00 03/04/20 03/04/20 03/04/20 03/04/20 00:01 00:14 01:00 01:08 Temp 36.2 Pulse 72 73 Resp 25 B/P (MAP) 102/65 (77) Pulse Ox 94 O2 Delivery Room Air Nasal Cannula O2 Flow Rate 2.00 03/04/20 03/04/20 03/04/20 03/04/20 02:00 03:00 03:58 04:00 Pulse 71 62 60 Resp 17 23 25 B/P (MAP) 102/61 (75) 119/68 (85) 124/62 (82) Pulse Ox 90 93 94 O2 Delivery Nasal Cannula Nasal Cannula Room Air Nasal Cannula O2 Flow Rate 2.00 2.00 2.00 03/04/20 03/04/20 03/04/20 05:00 06:00 07:21 Temp 36.2 Pulse 61 60 Resp 14 11 B/P (MAP) 122/70 (87) 119/57 (77) Pulse Ox 96 94 O2 Delivery Nasal Cannula Nasal Cannula O2 Flow Rate 2.00 2.00 03/04/20 00:00 Intake Total 200 ml Output Total 100 ml Balance 100 ml Side: left Groin site without hematoma: Yes Condition: DP/PT pulses palpable, extremity w/d/p Bruising: moderated bruising Constitutional: AAO x 3 Respiratory: No accessory muscle use, No respiratory distress; chest expansion is symmetric, chest is bilaterally symmetric Cardiovascular: irregularly irregular; No JVD; S1 and S2, systolic murmur Gastrointestional: No tender; soft, round, audible bowel sounds Extremities: no lower extremity edema bilateral Neurologic/Psychiatric: grossly intact (moves all extremities) Skin: No rash on exposed areas, No ulcerations on exposed areas Results/Procedures: Labs Laboratory Tests 03/03/20 12:40: Activated Partial Thromboplast Time 40H 03/04/20 01:50: White Blood Count 8.4, Red Blood Count 3.62L, Hemoglobin 10.2#L, Hematocrit 32L, Mean Corpuscular Volume 88, Mean Corpuscular Hemoglobin 28, Mean Corpuscular Hemoglobin Concent 32, Red Cell Distribution Width 15.0H, Platelet Count 245, Mean Platelet Volume 9.5 03/04/20 02:34: Sodium Level 139, Potassium Level 4.1, Chloride Level 108H, Carbon Dioxide Level 22, Anion Gap 9, Blood Urea Nitrogen 8, Creatinine 0.62, Estimat Glomerular Filtration Rate > 60, BUN/Creatinine Ratio 13, Glucose Level 116H, Calcium Level 8.6 Microbiology 03/03/20 MRSA Screen - Final, Complete MRSA not isolated Laboratory Tests 03/03/20 07:40 03/04/20 01:50 03/04/20 02:34 Procedures S/P cardiac cath on 03-03-2020 with successful intervention. Please refer to cardiac cath report of the same date. A/P: Assessment: Card cath of 02/25/20: Up to 99% instent restenosis in a previously extensively stented LAD that was treated with PTCA with reduction of stenosis to less than 30%. 99% prox/mid LCX stenosis to which PCI was unsuccessful on 02/25/20. The right coronary artery is extensively stented and has moderate, diffuse disease. The patient's stents are known to be Synergy 4.0 x 38 and 3.5 x 38 in the right coronary and Synergy 3.5 x 28 and 3.0 x 16 in the left anterior descending (done 01/2017 in [place]). Well-preserved global left ventricular systolic function with ejection fraction approximately 50-55%. Hypokinesis to akinesis of the apex of the left ventricle. Normal left ventricular end-diastolic pressure Most recent cardiac cath of March 03, 2020: Successful balloon angioplasty of 99% proximal stenosis of the second obtuse marginal with reduction of stenosis to approximately 50% and improvement of flow from CODY 2 to CODY 3. 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 She does not recall the date of her stroke Gen weakness and limited ambulation Poor memory Plan: S/P cardiac cath with successful intervention on 03-03-2020 Left groin discomfort with bruising - groin u/s today Likely discharge home if groin u/s ok Continue current medication regimen including ASA, Plavix and warfarin. F/U appt next week. 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
[2020-03-04] MEDS ORDERED: ASPI-999 PO (09:40)
--- NOTE | 2020-03-04 09:42 | Discharge Inst-Cardiology ---
Discharge Inst-Cardiac Discharge Medications New Medications: Aspirin (Aspirin) 81 Mg Tab.chew 81 MG PO DAILY, #30 TAB 5 Refills Continued Medications: Acetaminophen (Acetaminophen) 325 Mg Tablet 650 MG PO Q6H PRN for PAIN-MILD (1-4), TAB Atorvastatin Calcium (Lipitor) 40 Mg Tablet 40 MG PO DAILY, TAB Calcium Carbonate (Calcium Carbonate) 600 Mg Tablet 600 MG PO Q48H, TAB Carvedilol (Coreg) 6.25 Mg Tablet 6.25 MG PO BID, TAB Cholecalciferol (Vitamin D3) (Vitamin D3) 50 Mcg Capsule 50 MCG PO DAILY, CAP Clopidogrel Bisulfate (Plavix) 75 Mg Tablet 75 MG PO DAILY, TAB Cyanocobalamin (Vitamin B-12) 100 Mcg Tablet 1000 MCG PO DAILY, TAB Diltiazem HCl (Cartia Xt) 180 Mg Cap.er.24h 180 MG PO DAILY, CAP Lisinopril (Lisinopril) 20 Mg Tablet 20 MG PO DAILY, TAB Tolterodine Tartrate (Tolterodine Tartrate ER) 4 Mg Cap.er.24h 4 MG PO DAILY, CAP Tramadol HCl (Tramadol HCl) 50 Mg Tablet 50 MG PO Q6H PRN for PAIN-MILD (1-4) Warfarin Sodium (Coumadin) 1 Mg Tablet 1 MG PO MON,MON, TAB TAKES AT BEDTIME 1MG PO ON MONDAY AND MONDAY Warfarin Sodium (Coumadin) 1 Mg Tablet 1.5 MG PO MON,E,ДМИТРИЙ,FRI,SAT, TAB TAKES AT BEDTIME 1.5MG PO ON MON,TUES,THURS, FRI AND SAT New, Converted or Re-Newed RX: Transmitted to Pharmacy Patient Instructions Patient Instructions: PLEASE SCHEDULE APPOINTEMENT TO SEE DR. LEAHY NEXT WEEK LAB: CBC, BMP PLEASE DO THE DAY BEFORE YOUR APPOINTMENT WITH CRIS RAINES Mar 04, 2020 09:42
--- NOTE | 2020-03-04 11:14 | Diagnostic Imaging Report ---
INDICATION: Left groin pain. Patient status post heart catheterization one day earlier. Sonographic interrogation of the left groin was performed. A left common femoral artery and vein appear to be patent. No hematoma or pseudoaneurysm is seen. No AV fistula is detected. IMPRESSION: Unremarkable left groin ultrasound. Dictated by: Dictated on workstation # [id number]
--- NOTE | 2020-03-04 12:00 | NUR ---
PT AND EDUCATED ON DISCHARGE INSTRUCTIONS. PT AND STATED UNDERSTANDING.
--- NOTE | 2020-03-04 12:43 | Progress Note - Cardiology ---
Cardiology SOAP Progress Note Subjective: No cp or palp or syncope No significant groin discomfort when walking No focal weakness No n/v/d Objective: I&O/Vital Signs 03/04/20 03/04/20 03/04/20 03/04/20 01:00 01:08 02:00 03:00 Pulse 72 73 71 62 Resp 25 17 23 B/P (MAP) 102/65 (77) 102/61 (75) 119/68 (85) Pulse Ox 94 90 93 O2 Delivery Nasal Cannula Nasal Cannula Nasal Cannula O2 Flow Rate 2.00 2.00 2.00 03/04/20 03/04/20 03/04/20 03/04/20 03:58 04:00 05:00 06:00 Pulse 60 61 60 Resp 25 14 11 B/P (MAP) 124/62 (82) 122/70 (87) 119/57 (77) Pulse Ox 94 96 94 O2 Delivery Room Air Nasal Cannula Nasal Cannula Nasal Cannula O2 Flow Rate 2.00 2.00 2.00 03/04/20 03/04/20 03/04/20 03/04/20 06:50 07:00 07:21 08:00 Temp 36.2 Pulse 64 60 65 Resp 9 11 B/P (MAP) 126/60 (82) 122/63 (82) Pulse Ox 94 97 O2 Delivery Nasal Cannula Nasal Cannula O2 Flow Rate 2.00 2.00 03/04/20 03/04/20 03/04/20 08:00 09:00 10:00 Pulse 60 61 Resp 12 16 B/P (MAP) 112/58 (76) 126/69 (88) Pulse Ox 97 93 98 O2 Delivery Room Air Nasal Cannula Nasal Cannula O2 Flow Rate 2.00 2.00 03/04/20 00:00 Intake Total 200 ml Output Total 100 ml Balance 100 ml Side: left Groin site without hematoma: Yes Condition: DP/PT pulses palpable, extremity w/d/p Bruising: moderated bruising Constitutional: AAO x 3 Respiratory: No accessory muscle use, No respiratory distress; chest expansion is symmetric, chest is bilaterally symmetric Cardiovascular: irregularly irregular; No JVD; S1 and S2, systolic murmur Gastrointestional: No tender; soft, round, audible bowel sounds Extremities: no lower extremity edema bilateral Neurologic/Psychiatric: grossly intact (moves all extremities) Skin: No rash on exposed areas, No ulcerations on exposed areas Results/Procedures: Labs Laboratory Tests 03/03/20 12:40: Activated Partial Thromboplast Time 40H 03/04/20 01:50: White Blood Count 8.4, Red Blood Count 3.62L, Hemoglobin 10.2#L, Hematocrit 32L, Mean Corpuscular Volume 88, Mean Corpuscular Hemoglobin 28, Mean Corpuscular Hemoglobin Concent 32, Red Cell Distribution Width 15.0H, Platelet Count 245, Mean Platelet Volume 9.5 03/04/20 02:34: Sodium Level 139, Potassium Level 4.1, Chloride Level 108H, Carbon Dioxide Level 22, Anion Gap 9, Blood Urea Nitrogen 8, Creatinine 0.62, Estimat Glomerular Filtration Rate > 60, BUN/Creatinine Ratio 13, Glucose Level 116H, Calcium Level 8.6 Microbiology 03/03/20 MRSA Screen - Final, Complete MRSA not isolated Laboratory Tests 03/03/20 07:40 03/04/20 01:50 03/04/20 02:34 A/P: Assessment: CAD. Card cath of 02/25/20: Up to 99% instent restenosis in a previously extensively stented LAD that was treated with PTCA with reduction of stenosis to less than 30%. 99% prox/mid LCX stenosis to which PCI was unsuccessful on 02/25/20. The right coronary artery is extensively stented and has moderate, diffuse disease. The patient's stents are known to be Synergy 4.0 x 38 and 3.5 x 38 in the right coronary and Synergy 3.5 x 28 and 3.0 x 16 in the left anterior descending (done 01/2017 in [place]). Well-preserved global left ventricular systolic function with ejection fraction approximately 50-55%. Hypokinesis to ak inesis of the apex of the left ventricle. Normal left ventricular end-diastolic pressure Most recent cardiac cath of March 03, 2020: Successful balloon angioplasty of 99% proximal stenosis of the second obtuse marginal with reduction of stenosis to approximately 50% and improvement of flow from CODY 2 to CODY 3. Post-cath (03/03/20) L groin hematoma, stable. U/s of 03/04/20 unremarkable. 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 She does not recall the date of her stroke Gen weakness and limited ambulation Poor memory Plan: S/P cardiac cath with successful intervention on 03-03-2020 Stable groin hematoma w/o any significant finding on groin u/s Continue current medication regimen including ASA, Plavix and warfarin. F/U appt next week. At that time we will likely stop the ASA because having her on all 3 agents custodial increases her risk of bleeding Lab next week prior to appt ANDREINA LEAHY MD FACP FACC CCDS Mar 04, 2020 12:43
[2020-03-04] MEDS ORDERED: warFARin 1 MG (COUMADIN) TAB PO SCH (18:00)
== END 2020-03-04 12:18 | disposition home or self-care (01) ==
LOC: CATH 07:13 → ICU 10:50 → CATH 03-04 12:18
PROVIDERS: ATTEND Internal Medicine Cardiovascular Disease
DX: I25.10 Atherosclerotic heart disease of native coronary artery without angina pectoris (principal); I25.5 Ischemic cardiomyopathy; I08.1 Rheumatic disorders of both mitral and tricuspid valves; I21.4 Non-ST elevation (NSTEMI) myocardial infarction; I48.20 Chronic atrial fibrillation, unspecified; D62 Acute posthemorrhagic anemia; Z88.0 Allergy status to penicillin; Z79.899 Other long term (current) drug therapy; Z79.02 Long term (current) use of antithrombotics/antiplatelets; Z79.01 Long term (current) use of anticoagulants; Z90.89 Acquired absence of other organs; Z95.0 Presence of cardiac pacemaker; Z82.3 Family history of stroke
CPT/HCPCS: 36415; 80048; 80053; 80061; 85027; 85610; 85730; 87081; 93005; 93926

== ENCOUNTER 2020-06-28 04:43 | Inpatient (IN) | payer MEDICARE ==
[2020-06-28] VITALS (13 sets, daily range): BP systolic 112–161; BP diastolic 53–110
[~2020-06-28] VITALS: Ht 160 cm; Wt 70.6 kg
[~2020-06-28 04:43] MED LIST changes: +ASPI-999 PO; +CEFD300C3 PO; -CHOL2000 PO; +CHOL200074 PO; -CYAN100T3 PO; +CYAN100T37 PO; -WARF1TAB PO; +WRF1T PO
[2020-06-28] MEDS ORDERED: ASPIRIN 81 MG CHEW (CHILDREN'S ASA) PO ONE (05:15)
[2020-06-28] MEDS ORDERED: NITROGLYCERIN 0.4 MG SL TABS BTL 25'S SL PRN (05:15)
--- NOTE | 2020-06-28 05:15 | NUR ---
Pt arrives by EMS with c/o sob; states that her home 02 wasn't working and she became sob. Pt was just put on home 02 a couple of days ago. Pt also has anxiety and states she had a panic attack as well. Pt is A&Ox4, c/o sob and chest pressure mid-sternally. Pain 10/04. Pt tachypneic and coached on her breathing.
--- NOTE | 2020-06-28 05:19 | ED Respiratory ---
General Stated Complaint: SOB Source: patient Exam Limitations: no limitations (AVA SHIELDS) History of Present Illness Date Seen by Provider: Jun 28, 2020 Time Seen by Provider: 04:45 Initial Comments The patient presents to ER by EMS from home with chief complaint she woke up having a panic attack. Her thought she might not be getting oxygen from her concentrator which she's been on for the past 2 days and switched her over to a bottle. When EMS arrived they said that the bottle was looked up wrong and she was receiving no oxygen. When they put her back on 5 L per nasal cannula her oxygen sats are 99%. They state her baseline is about 2-3 L but she just started wearing oxygen 2 days ago. Her primary care doctor is Dr. sainz and her supervisor particleboard Dr. Valenzuela. She just had a follow-up appointment with Dr. Valenzuela last week and everything was okay. She also had to spend several weeks in the hospital related to heart in April. She says she's having some substernal chest pain, anxiety and air hunger. She denies a history of COPD or smoking. She denies taking breathing treatments. She denies wheezing stridor or difficulty swallowing. No fevers chills cough or sick contacts. No nausea or vomiting. She is on warfarin. (AVA SHIELDS) Allergies and Home Medications Allergies Coded Allergies: Penicillins (Unverified Allergy, Unknown, 11/17/19) Home Medications Acetaminophen 325 Mg Tablet, 650 MG PO Q6H PRN for PAIN-MILD (1-4), (Reported) Aspirin 81 Mg Tab.chew, 81 MG PO DAILY Prescribed by: CRIS OSBORN on 03/04/20 0940 Atorvastatin Calcium 40 Mg Tablet, 40 MG PO DAILY, (Reported) Calcium Carbonate 600 Mg Tablet, 600 MG PO Q48H, (Reported) Carvedilol 6.25 Mg Tablet, 6.25 MG PO BID, (Reported) Cefdinir 300 Mg Capsule, 300 MG PO BID Prescribed by: SANJANA VUONG on 05/30/20 0013 Cholecalciferol (Vitamin D3) 50 Mcg Capsule, 50 MCG PO DAILY, (Reported) Clopidogrel Bisulfate 75 Mg Tablet, 75 MG PO DAILY, (Reported) Cyanocobalamin 100 Mcg Tablet, 1,000 MCG PO DAILY, (Reported) Diltiazem HCl 180 Mg Cap.er.24h, 180 MG PO DAILY, (Reported) Lisinopril 20 Mg Tablet, 20 MG PO DAILY, (Reported) Tolterodine Tartrate 4 Mg Cap.er.24h, 4 MG PO DAILY, (Reported) Tramadol HCl 50 Mg Tablet, 50 MG PO Q6H PRN for PAIN-MILD (1-4), (Reported) Warfarin Sodium 1 Mg Tablet, 1 MG PO , (Reported) TAKES AT BEDTIME 1MG PO ON MONDAY AND MONDAY Warfarin Sodium 1 Mg Tablet, 1.5 MG PO MON,MON,MON,MON,MON, (Reported) TAKES AT BEDTIME 1.5MG PO ON MON,,, MON AND MON Patient Home Medication List Home Medication List Reviewed: Yes (AVA SHIELDS) Review of Systems Review of Systems Constitutional: No chills, No fever EENTM: No ear discharge, No ear pain Respiratory: No cough, No phlegm; short of breath; No wheezing Cardiovascular: see HPI, chest pain; No edema; Hx of Intervention; No palpitat ions Gastrointestinal: No abdominal pain, No nausea, No vomiting Genitourinary: No discharge, No dysuria : No Musculoskeletal: No back pain, No joint pain Skin: No pruritus, No rash Psychiatric/Neurological: Denies Anxiety, Denies Depressed (AVA SHIELDS) All Other Systems Reviewed Negative Unless Noted: Yes (AVA SHIELDS) Past Wngwjvn-Irudbh-Kzrnac Hx Patient Social History Alcohol Use: Denies Use Recreational Drug Use: No Smoking Status: Never a Smoker 2nd Hand Smoke Exposure: No Recent Hopitalizations: No (AVA SHIELDS) Immunizations Up To Date Tetanus Booster (TDap): Unknown PED Vaccines UTD: Yes Date of Pneumonia Vaccine: May 29, 2018 (AVA SHIELDS) Seasonal Allergies Seasonal Allergies: No (AVA SHIELDS) Past Medical History Surgeries: Yes (SEE BELOW) Adenoidectomy, Cardiac, Coronary Stent, Pacemaker, Vascular Surgery Respiratory: Yes (CHRONIC COUGH; PNEUMONIA X1; BRONCHITIS ) Pneumonia, Sleep Apnea Cardiac: Yes (PACEMAKER 2016;CARDIAC STENTS X 4; RIGHT CAROTID STENT X 1) Atrial Fibrillation, Coronary Artery Disease, High Cholesterol, Hypertension Neurological: Yes (CVA 2016--NO RESIDUAL EFFECTS; STATES ONLY SYMPTOM WAS HEADACHE. ) Stroke MAORI LIAISON ADVISER History: Menopausal Genitourinary: No Gastrointestinal: No Musculoskeletal: Yes Arthritis Endocrine: No HEENT: No Cancer: No Psychosocial: No Integumentary: No Blood Disorders: No (AVA SHIELDS) Family Medical History PSH: -CARDIAC CATHS--STENTS X 4 -RIGHT CAROTID STENT X 1 -PACEMAKER 2016 (AVA SHIELDS) Physical Exam Vital Signs - First Documented 06/28/20 04:50 Temp 36.4 Pulse 82 Resp 32 B/P (MAP) 160/80 (106) Pulse Ox 96 O2 Delivery Nasal Cannula O2 Flow Rate 4.00 (JATIN DARDEN MD) Capillary Refill : (AVA SHIELDS) Height: '" Weight: lbs. oz. kg; 25.00 BMI Method: General Appearance: WD/WN, mild distress Eyes: Bilateral Eye Normal Inspection, Bilateral Eye PERRL, Bilateral Eye EOMI HEENT: PERRL/EOMI, normal ENT inspection, pharynx normal Neck: non-tender, full range of motion, supple, normal inspection Respiratory: lungs clear, normal breath sounds, no accessory muscle use, respiratory distress (mild) Cardiovascular: normal peripheral pulses, regular rate, rhythm Gastrointestinal: normal bowel sounds, non tender, soft, no organomegaly Extremities: normal inspection, no pedal edema, normal capillary refill Neurologic/Psychiatric: alert, oriented x 3, other (anxious affect) Skin: normal color, warm/dry (AVA SHIELDS) Progress/Results/Core Measures Suspected Sepsis SIRS Temperature: Pulse: Respiratory Rate: Blood Pressure / Mean: (AVA SHIELDS) Results/Orders Lab Results Laboratory Tests Test 06/28/20 05:08 Range/Units White Blood Count 9.3 4.3-11.0 10^3/uL Red Blood Count 4.23 3.80-5.11 10^6/uL Hemoglobin 11.3 L 11.5-16.0 g/dL Hematocrit 36 35-52 % Mean Corpuscular Volume 86 80-99 fL Mean Corpuscular Hemoglobin 27 25-34 pg Mean Corpuscular Hemoglobin Concent 31 L 32-36 g/dL Red Cell Distribution Width 17.0 H 10.0-14.5 % Platelet Count 254 130-400 10^3/uL Mean Platelet Volume 9.8 9.0-12.2 fL Immature Granulocyte % (Auto) 0 % Neutrophils (%) (Auto) 80 H 42-75 % Lymphocytes (%) (Auto) 10 L 12-44 % Monocytes (%) (Auto) 8 0-12 % Eosinophils (%) (Auto) 2 0-10 % Basophils (%) (Auto) 0 0-10 % Neutrophils # (Auto) 7.4 1.8-7.8 10^3/uL Lymphocytes # (Auto) 0.9 L 1.0-4.0 10^3/uL Monocytes # (Auto) 0.8 0.0-1.0 10^3/uL Eosinophils # (Auto) 0.2 0.0-0.3 10^3/uL Basophils # (Auto) 0.0 0.0-0.1 10^3/uL Immature Granulocyte # (Auto) 0.0 0.0-0.1 10^3/uL Prothrombin Time 31.2 H 12.2-14.7 SEC INR Comment 3.0 H 0.8-1.4 Activated Partial Thromboplast Time 42 H 24-35 SEC Blood Gas Puncture Site NOT INDICATED Blood Gas Patient Temperature 36.9 Arterial Blood pH 7.42 7.37-7.43 Arterial Blood Partial Pressure CO2 37 35-45 MMHG Arterial Blood Partial Pressure O2 89 79-93 MMHG Arterial Blood HCO3 24 23-27 MMOL/L Arterial Blood Total CO2 24.8 21.0-31.0 MMOL/L Arterial Blood Oxygen Saturation 96 94-100 % Arterial Blood Base Excess -0.2 -2.5-2.5 MMOL/L Danny Test YES-POS Blood Gas Ventilator Setting NO Blood Gas Inspired Oxygen 3L Sodium Level 142 135-145 MMOL/L Potassium Level 3.6 3.6-5.0 MMOL/L Chloride Level 107 98-107 MMOL/L Carbon Dioxide Level 23 21-32 MMOL/L Anion Gap 12 5-14 MMOL/L Blood Urea Nitrogen 13 7-18 MG/DL Creatinine 0.75 0.60-1.30 MG/DL Estimat Glomerular Filtration Rate > 60 BUN/Creatinine Ratio 17 Glucose Level 152 H 70-105 MG/DL Calcium Level 9.4 8.5-10.1 MG/DL Corrected Calcium 9.4 8.5-10.1 MG/DL Magnesium Level 1.7 1.6-2.4 MG/DL Total Bilirubin 0.9 0.1-1.0 MG/DL Aspartate Amino Transf (AST/SGOT) 17 5-34 U/L Alanine Aminotransferase (ALT/SGPT) 12 0-55 U/L Alkaline Phosphatase 88 40-136 U/L Myoglobin 22.6 10.0-92.0 NG/ML Troponin I 0.802 *H <0.028 NG/ML B-Type Natriuretic Peptide 1498.9 H <100.0 PG/ML Total Protein 7.0 6.4-8.2 GM/DL Albumin 4.0 3.2-4.5 GM/DL (JATIN DARDEN MD) My Orders Orders - JATIN DARDEN MD Furosemide Injection (Lasix Injection) (06/28/20 06:39) (JATIN DARDEN MD) Medications Given in ED Current Medications Medications Dose Ordered Sig/Natalie Route Start Time Stop Time Status Last Admin Dose Admin Aspirin 324 mg ONCE ONCE PO 06/28/20 05:15 06/28/20 05:16 DC 06/28/20 05:15 324 MG (JATIN DARDEN MD) Vital Signs/I&O 06/28/20 06/28/20 04:50 04:50 Temp 36.4 Pulse 82 Resp 32 B/P (MAP) 160/80 (106) Pulse Ox 96 97 O2 Delivery Nasal Cannula Nasal Cannula O2 Flow Rate 4.00 (JATIN DARDEN MD) Vital Signs/I&O Capillary Refill : (AVA SHIELDS) Progress Note : Time: 05:20 Progress Note Aspirin and nitroglycerin for chest pain. Anxiety versus air hunger. She has normal vital signs and good oxygen saturation. She did recently admit to increasing her carvedilol 25 mg twice a day. She is quite anxious which could be related to hypoxia so we'll get an ABG. On 4 L she is 99%. Heart rate in the 70s. She's having a few PVCs. (AVA SHIELDS) Progress Note : Progress Note 0645: Assumed care from Dr. Shields pending labs. Troponin and BNP are both elevated. Records review shows patient has had previous non-STEMI this year and required intervention with very similar presentation. Patient and is not in pain when at rest but states that she still feels like she is having a hard time breathing despite oxygen. O2 sats mid upper 90s on 2 L. Chest x-ray concerning for heart failure pattern. Lasix 40 mg IV given. I discussed with the patient regarding Mandujano catheter and she has requested this. I discussed the case with Dr. Valenzuela at 0650 and he is recommending ICU admission with likely intervention today even her history. Patient will remain nothing by mouth. Case discussed wit Dr. Mclean who accepts patient for admission, inpatient status. Patient agrees to plan. (JATIN DARDEN MD) ECG Initial ECG Impression Date: Jun 28, 2020 Initial ECG Impression Time: 04:56 Initial ECG Rate: 75 Initial ECG Rhythm: Normal Sinus Initial ECG Intervals: OR (218) Initial ECG Impression: Normal, Nonspecific Changes Initial ECG Comparisson: No Previous ECG Available Comment PVC. Normal sinus rhythm without some of the relevant ST elevation or depression. (AVA SHIELDS) Diagnostic Imaging Diagonstic Imaging: Xray Plain Films/CT/US/NM/MRI: chest Reviewed: Reviewed by Me (AVA SHIELDS) Comments [facility] [place] NAME: KEISHA ESPAÑA [facility] REC#: [id number] PT STATUS: ADM IN : 1940 PHYSICIAN: AVA SHIELDS MD ADMIT DATE: 06/28/20/ICU Draft Date of Exam:06/28/20 CHEST 1 VIEW, AP/PA ONLY Indication: Chest pain. Comparison: 05/29/2020. Discussion: Single portable upright view of the chest was obtained. Cardiomegaly is stable. Left-sided pacemaker stable. New small bilateral pleural effusions. New patchy bibasilar infiltrates, pneumonia versus atelectasis. No pneumothorax or osseous abnormality. Impression: 1. Stable cardiomegaly with new small bilateral pleural effusions and new bibasilar infiltrates. Dictated on workstation # [id number] Dict: 06/28/20 0727 Trans: 06/28/20 0732 TERESA [id number] Interpreted by: RANJAN GARCIA MD Electronically signed by: (JATIN DARDEN MD) Departure Communication (Admissions) Time/Spoke to Admitting Phy: 07:00 Time/Spoke to Consulting Phy: 06:50 (JATIN DARDEN MD) Impression Primary Impression: NSTEMI (non-ST elevated myocardial infarction) Additional Impression: Acute on chronic heart failure Qualified Codes: I50.9 - Heart failure, unspecified Disposition: 09 ADMITTED INPATIENT Condition: Stable Admissions Decision to Admit Reason: Admit from ER (General) Decision to Admit/Date: Jun 28, 2020 Time/Decision to Admit Time: 06:50 (JATIN DARDEN MD) Departure-Patient Inst. Referrals: LOUIS SAINZ MD (PCP/Family) Primary Care Physician AVA SHIELDS Jun 28, 2020 05:19 JATIN DARDEN MD Jun 28, 2020 06:53
[2020-06-28 05:33] LABS: BASOPHILS % (AUTO) 0 % (0-10); EOSINOPHILS # (AUTO) 0.2 10^3/uL (0.0-0.3); EOSINOPHILS % (AUTO) 2 % (0-10); HEMATOCRIT 36 % (35-52); HEMOGLOBIN 11.3 g/dL (11.5-16.0); LYMPHOCYTES # (AUTO) 0.9 10^3/uL (1.0-4.0); LYMPHOCYTES % (AUTO) 10 % (12-44); MEAN CORPUSCULAR HEMOGLOBIN 27 pg (25-34); MEAN CORPUSCULAR HGB CONC 31 g/dL (32-36); MEAN CORPUSCULAR VOLUME 86 fL (80-99); MEAN PLATELET VOLUME 9.8 fL (9.0-12.2); MONOCYTES # (AUTO) 0.8 10^3/uL (0.0-1.0); MONOCYTES % (AUTO) 8 % (0-12); NEUTROPHILS # (AUTO) 7.4 10^3/uL (1.8-7.8); NEUTROPHILS % (AUTO) 80 % (42-75); PLATELET COUNT 254 10^3/uL (130-400); WHITE BLOOD COUNT 9.3 10^3/uL (4.3-11.0)
[2020-06-28 05:38] LABS: ABG BASE EXCESS -0.2 MMOL/L (-2.5-2.5); ABG OXYGEN SATURATION 96 % (94-100); ABG PCO2 37 MMHG (35-45); ABG PH 7.42 (7.37-7.43); ABG PO2 89 MMHG (79-93); ABG TCO2 24.8 MMOL/L (21.0-31.0)
[2020-06-28 05:43] LABS: ALLENS TEST YES-POS; INSPIRED O2 3L; PATIENT TEMP 36.9; VENTILATOR NO
[2020-06-28 05:45] LABS: CHLORIDE 107 MMOL/L (98-107); POTASSIUM 3.6 MMOL/L (3.6-5.0); SODIUM 142 MMOL/L (135-145)
[2020-06-28 05:46] LABS: CALCIUM 9.4 MG/DL (8.5-10.1)
[2020-06-28 05:47] LABS: GLUCOSE 152 MG/DL (70-105); PROTHROMBIN TIME PATIENT 31.2 SEC (12.2-14.7)
[2020-06-28 05:48] LABS: CARBON DIOXIDE 23 MMOL/L (21-32)
[2020-06-28 05:49] LABS: BILIRUBIN,TOTAL 0.9 MG/DL (0.1-1.0)
[2020-06-28 05:51] LABS: ALKALINE PHOSPHATASE 88 U/L (40-136); CREATININE SERUM 0.75 MG/DL (0.60-1.30); GFR ESTIMATED > 60
[2020-06-28 05:52] LABS: BUN/CREATININE RATIO 17
[2020-06-28 05:54] LABS: ALANINE AMINOTRANSFERASE 12 U/L (0-55); MAGNESIUM 1.7 MG/DL (1.6-2.4)
--- NOTE | 2020-06-28 06:03 | NUR ---
Critical troponin called; ERP notified.
[2020-06-28] MEDS ORDERED: FUROSEMIDE 40 MG/4 ML INJ (LASIX) IV STA (06:39)
--- NOTE | 2020-06-28 07:03 | NUR ---
Report to AIMEE Trotter .
--- NOTE | 2020-06-28 07:30 | NUR ---
pt assisted via wc to restroom at this time.
--- NOTE | 2020-06-28 07:32 | Diagnostic Imaging Report ---
Indication: Chest pain. Comparison: 05/29/2020. Discussion: Single portable upright view of the chest was obtained. Cardiomegaly is stable. Left-sided pacemaker stable. New small bilateral pleural effusions. New patchy bibasilar infiltrates, pneumonia versus atelectasis. No pneumothorax or osseous abnormality. Impression: 1. Stable cardiomegaly with new small bilateral pleural effusions and new bibasilar infiltrates. Dictated by: Dictated on workstation # [id number]
--- NOTE | 2020-06-28 07:48 | NUR ---
attemp to call report at this time. no answer by [facility].
--- NOTE | 2020-06-28 08:00 | NUR ---
attempt to call report at this time. no answer.
--- NOTE | 2020-06-28 08:05 | History & Physical-Hospitalist ---
History of Present Illness HPI/Chief Complaint CC: Chest pain with NSTEMI HPI: This is an 80yoWF who presented to the ER with chest pain and found to have elevated troponin but no ST changes on EKG. DR Valenzuela recommended admit. Patient just had home O2 started night after visiting with PCP earlier that day. AF noted on Telemetry. Since 2015 she can't breathe through her nose and that makes O2 supplement via [place] problematic. TSH was also checked in clinic. Source: patient Exam Limitations: no limitations Date Seen 06/28/20 Time Seen by a Provider: 11:30 Attending Physician Tamara Mclean DO PCP Self,Greg CASTELLON Referring Physician Date of Admission Jun 28, 2020 at 06:56 Home Medications & Allergies Home Medications Reviewed patient Home Medication Reconciliation performed by pharmacy medication reconciliations player piano technician and/or nursing. Patients Allergies have been reviewed. Allergies Allergies Coded Allergies Penicillins (Unverified Allergy, Unknown, 11/17/19) Past Eyafcho-Buycgt-Pofvae Hx Past Med/Social Hx: Reviewed Nursing Past Med/Soc Hx, Reviewed and Corrections made Patient Social History Marrital Status: Employed/Student: retired Alcohol Use: Denies Use Recreational Drug Use: No Smoking Status: Never a Smoker 2nd Hand Smoke Exposure: No Recent Foreign Travel: No Contact w/other who traveled: No Recent Hopitalizations: No Recent Infectious Disease Expo: No Immunizations Up To Date Tetanus Booster (TDap): Unknown Pediatric: Yes Date of Pneumonia Vaccine: May 29, 2018 Seasonal Allergies Seasonal Allergies: No Past Medical History Surgeries: Adenoidectomy, Cardiac, Coronary Stent, Pacemaker, Vascular Surgery hypoxia on home O2 since 06/26/20 Cardiac: Atrial Fibrillation, Coronary Artery Disease, High Cholesterol, Hypertension Neurological: Stroke Menopausal Musculoskeletal: Arthritis History of Blood Disorders: No Family History PSH: -CARDIAC CATHS--STENTS X 4 -RIGHT CAROTID STENT X 1 -PACEMAKER 2016 Review of Systems Constitutional: see HPI, weakness Respiratory: dyspnea on exertion Cardiovascular: chest pain Physical Exam Physical Exam Vital Signs Vital Signs - First Documented 06/28/20 04:50 Temp 36.4 Pulse 82 Resp 32 B/P (MAP) 160/80 (106) Pulse Ox 96 O2 Delivery Nasal Cannula O2 Flow Rate 4.00 Capillary Refill : Less Than 3 Seconds Height, Weight, BMI Height: '" Weight: lbs. oz. kg; 28.00 BMI Method: General Appearance: No Apparent Distress, Chronically ill Eyes: Right Eye Normal Inspection, Right Eye PERRL HEENT: PERRL/EOMI, Normal ENT Inspection, Pharynx Normal, Moist Mucous Membranes Neck: Full Range of Motion, Normal Inspection, Non Tender Respiratory: Chest Non Tender, Lungs Clear, Normal Breath Sounds, No Accessory Muscle Use, No Respiratory Distress Cardiovascular: Regular Rate, Rhythm, No Edema, No Gallop, No JVD, No Murmur, Normal Peripheral Pulses Gastrointestinal: Normal Bowel Sounds, No Organomegaly, No Pulsatile Mass, Non Tender, Soft Back: Normal Inspection, No CVA Tenderness, No Vertebral Tenderness Extremity: Normal Capillary Refill, Normal Inspection, Normal Range of Motion, Non Tender, No Calf Tenderness, No Pedal Edema Neurologic/Psychiatric: Alert, Oriented x3, No Motor/Sensory Deficits, Normal Mood/Affect Skin: Normal Color, Warm/Dry Lymphatic: No Adenopathy Results Results/Procedures Labs Laboratory Tests 06/28/20 05:08 Patient resulted labs reviewed. Assessment/Plan Admission Diagnosis Assessment: NSTEMI Hypoxia on home on O2 at home since 06/26/20 CVA 2016 AF OAC CHF Plan: Dr Valenzuela consult O2 AF on OAC Admission Status: Inpatient Order (span 2 midnights) Reason for Inpatient Admission: NSTEMI Diagnosis/Problems Diagnosis/Problems (1) NSTEMI (non-ST elevated myocardial infarction) (2) Acute on chronic heart failure Status: Acute Qualifiers: Heart failure type: unspecified Qualified Codes: I50.9 - Heart failure, unspecified (3) Atrial fibrillation (4) CAD (coronary artery disease) (5) History of right common carotid artery stent placement (6) Anticoagulated on Coumadin (7) Elevated brain natriuretic peptide (BNP) level (8) Pacemaker (9) PVD (peripheral vascular disease) (10) Stented coronary artery TAMARA MCLEAN DO Jun 28, 2020 08:05
--- NOTE | 2020-06-28 08:08 | NUR ---
report to garrick at this time. reports room is still being cleaned and she would call back when it was ready for the pt.
[2020-06-28] MEDS ORDERED: ONDANSETRON 4 MG/2 ML (SDV) Z0FRAN IV PRN (10:00)
[2020-06-28] MEDS ORDERED: morphine INJ 4 MG/ML 1 ML (VIAL/SYRINGE) IV PRN (10:00)
[2020-06-28] MEDS ORDERED: CARVEDILOL 12.5 MG (COREG) TABLET PO SCH ×2 (10:03→21:00)
[2020-06-28] MEDS: CLOPIDOGREL 75 MG (PLAVIX) TABLET PO SCH (11:44)
[2020-06-28] MEDS: lisINopril 10 MG (PRINIVIL) TABLET PO SCH (11:44)
[2020-06-28] MEDS: NITROGLYCERIN 0.4 MG SL TABS BTL 25'S SL PRN ×2 (12:32→12:39)
[2020-06-28] MEDS: ACETAMINOPHEN 325 MG TABLET PO PRN ×2 (13:02→22:21)
--- NOTE | 2020-06-28 13:54 | Consultation-Cardiology ---
HPI-Cardiology Cardiology Consultation: Date of Consultation 06/28/20 Time Seen by a Provider: 13:10 Date of Admission Attending Physician Tamara Mclean DO Admitting Physician Greg Vargas MD Consulting Physician ANDREINA LEAHY MD, MA, FACP, FACC, FSCAI, CCDS HPI: Chief Complaint: CC: Chest discomfort and shortness of breath HPI 80 yo woman with known CAD who has had increasing shortness of breath for the last 3-4 days. Also has had intermittent chest discomfort: mid sternal heaviness, nonradiating, worse with exertion, improved with rest and/or s/l NTG, mod in intensity, nonradiating, reminiscent or previous angina. No palp or syncope or swelling. Review of Systems-Cardiology Review of Systems Constitutional: malaise, tiredness; No weight loss, No weight gain Eyes: No vision change Ears/Nose/Throat: No ear discharge, No nasal drainage, No recent hearing loss Respiratory: As described under HPI Cardiovascular: As described under HPI Gastrointestinal: As described under HPI Genitourinary: No dysuria, No hematuria : No Musculoskeletal: back pain (chronic) Skin: No rash, No ulcerations Psychiatric/Neurological: No seizure, No focal weakness, No syncope Hematologic: No bleeding abnormalities All Other Systems Reviewed Negative Unless Noted: Yes UVB-Rlwhwv-Dcyizf Hx Patient Social History Alcohol Use: Denies Use Recreational Drug Use: No Smoking Status: Never a Smoker 2nd Hand Smoke Exposure: No Recent Foreign Travel: No Recent Infectious Disease Expo: No Hospitalization with Isolation: Denies Immunizations Up To Date Tetanus Booster (TDap): Unknown Date of Pneumonia Vaccine: Jun 28, 2019 Past Medical History PMH As described under Assessment. Family Medical History Family Medical History: She does not report fam h/o early CAD Allergies and Home Medications Allergies Coded Allergies: Penicillins (Unverified Allergy, Unknown, 11/17/19) Home Medications Acetaminophen 325 Mg Tablet, 650 MG PO Q6H PRN for PAIN-MILD (1-4), (Reported) Aspirin 81 Mg Tab.chew, 81 MG PO DAILY Prescribed by: CRIS OSBORN on 03/04/20 0940 Atorvastatin Calcium 40 Mg Tablet, 40 MG PO DAILY, (Reported) Calcium Carbonate 600 Mg Tablet, 600 MG PO Q48H, (Reported) Carvedilol 6.25 Mg Tablet, 6.25 MG PO BID, (Reported) Cefdinir 300 Mg Capsule, 300 MG PO BID Prescribed by: SANJANA VUONG on 05/30/20 0013 Cholecalciferol (Vitamin D3) 50 Mcg Capsule, 50 MCG PO DAILY, (Reported) Clopidogrel Bisulfate 75 Mg Tablet, 75 MG PO DAILY, (Reported) Cyanocobalamin 100 Mcg Tablet, 1,000 MCG PO DAILY, (Reported) Diltiazem HCl 180 Mg Cap.er.24h, 180 MG PO DAILY, (Reported) Lisinopril 20 Mg Tablet, 20 MG PO DAILY, (Reported) Tolterodine Tartrate 4 Mg Cap.er.24h, 4 MG PO DAILY, (Reported) Tramadol HCl 50 Mg Tablet, 50 MG PO Q6H PRN for PAIN-MILD (1-4), (Reported) Warfarin Sodium 1 Mg Tablet, 1 MG PO , (Reported) TAKES AT BEDTIME 1MG PO ON MONDAY AND MONDAY Warfarin Sodium 1 Mg Tablet, 1.5 MG PO MON,MON,MON,MON,MON, (Reported) TAKES AT BEDTIME 1.5MG PO ON MON,,, MON AND MON Patient Home Medication List Home Medication List Reviewed: Yes Physical Exam-Cardiology Physical Exam Vital Signs/I&O 06/28/20 06/28/20 06/28/20 06/28/20 04:50 04:50 09:35 10:00 Temp 36.4 Pulse 82 73 Resp 32 20 B/P (MAP) 160/80 (106) 148/98 (115) Pulse Ox 96 97 100 O2 Delivery Nasal Cannula Nasal Cannula Nasal Cannula Nasal Cannula O2 Flow Rate 4.00 3.00 3.00 06/28/20 06/28/20 06/28/20 06/28/20 11:00 12:00 13:00 13:00 Pulse 72 79 73 93 Resp 27 18 26 B/P (MAP) 143/84 (103) 161/110 (127) 150/98 (115) Pulse Ox 99 100 95 O2 Delivery Nasal Cannula Nasal Cannula Nasal Cannula O2 Flow Rate 3.00 3.00 3.00 06/28/20 13:04 Temp 36.6 Capillary Refill : Less Than 3 Seconds Constitutional: AAO x 3, well-developed, well-nourished HEENT: EOMI, hearing is well preserved; No xanthelasmas are seen Neck: carotid pulses are 2 + bilaterally Respiratory: No accessory muscle use; other (good bilateral air entry, diminished at the bases) Cardiovascular: regular rate-rhythm, S1 and S2, systolic murmur (soft MAGDALENE at the card base) Gastrointestinal: No tender; soft; No guarding, No rebound; audible bowel sounds Extremities: No clubbing, No cyanosis, No significant edema Neurologic/Psychiatric: oriented x 3, other (moves all her limbs equally) Skin: No rash on exposed areas, No ulcerations on exposed areas Data Review Labs Laboratory Tests 06/28/20 05:08: White Blood Count 9.3, Red Blood Count 4.23, Hemoglobin 11.3L, Hematocrit 36, Mean Corpuscular Volume 86, Mean Corpuscular Hemoglobin 27, Mean Corpuscular Hemoglobin Concent 31L, Red Cell Distribution Width 17.0H, Platelet Count 254, Mean Platelet Volume 9.8, Immature Granulocyte % (Auto) 0, Neutrophils (%) (Auto) 80H, Lymphocytes (%) (Auto) 10L, Monocytes (%) (Auto) 8, Eosinophils (%) (Auto) 2, Basophils (%) (Auto) 0, Neutrophils # (Auto) 7.4, Lymphocytes # (Auto) 0.9L, Monocytes # (Auto) 0.8, Eosinophils # (Auto) 0.2, Basophils # (Auto) 0.0, Immature Granulocyte # (Auto) 0.0, Prothrombin Time 31.2H, INR Comment 3.0H, Activated Partial Thromboplast Time 42H, Blood Gas Puncture Site NOT INDICATED, Blood Gas Patient Temperature 36.9, Arterial Blood pH 7.42, Arterial Blood Partial Pressure CO2 37, Arterial Blood Partial Pressure O2 89, Arterial Blood HCO3 24, Arterial Blood Total CO2 24.8, Arterial Blood Oxygen Saturation 96, Arterial Blood Base Excess -0.2, Danny Test YES-POS, Blood Gas Ventilator Setting NO, Blood Gas Inspired Oxygen 3L, Sodium Level 142, Potassium Level 3.6, Chloride Level 107, Carbon Dioxide Level 23, Anion Gap 12, Blood Urea Nitrogen 13, Creatinine 0.75, Estimat Glomerular Filtration Rate > 60, BUN/Creatinine Ratio 17, Glucose Level 152H, Calcium Level 9.4, Corrected Calcium 9.4, Magnesium Level 1.7, Total Bilirubin 0.9, Aspartate Amino Transf (AST/SGOT) 17, Alanine Aminotransferase (ALT/SGPT) 12, Alkaline Phosphatase 88, Myoglobin 22.6, Troponin I 0.802*H, B-Type Natriuretic Peptide 1498.9H, Total Protein 7.0, Albumin 4.0 06/28/20 13:06: Laboratory Tests 06/28/20 05:08 A/P-Cardiology Assessment/Admission Diagnosis Acute, decompensated, systolic and diastolic CHF Ac NSTEMI CAD. Card cath of 02/25/20: Up to 99% instent restenosis in a previously extensively stented LAD that was treated with PTCA with reduction of stenosis to less than 30%. 99% prox/mid LCX stenosis to which PCI was unsuccessful on 02/25/20. The right coronary artery is extensively stented and has moderate, diffuse disease. The patient's stents are known to be Synergy 4.0 x 38 and 3.5 x 38 in the right coronary and Synergy 3.5 x 28 and 3.0 x 16 in the left anterior descending (done 01/2017 in [place]). Well-preserved global left ventricular systolic function with ejection fraction approximately 50-55%. Hypokinesis to akinesis of the apex of the left ventricle. Normal left ventricular end- diastolic pressure. Most recent cardiac cath of March 03, 2020: Successful balloon angioplasty of 99% proximal stenosis of the second obtuse marginal with reduction of stenosis to approximately 50% and improvement of flow from CODY 2 to CODY 3. Post-cath (03/03/20) L groin hematoma, stable. U/s of 03/04/20 unremarkable. 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 F unctioning normally per interrogation of February 15, 2020 Chronic warfarin anticoag - managed by her PCP Carotid art rodger. 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 She does not recall the date of her stroke Gen weakness and limited ambulation Poor memory Discussion and Recomendations * Due to continuing symptoms and rise in troponin, we recommend cath and ad hoc PCI, if needed. I discussed this with her in detail, including procedure, risks, benefits, potential complications, and alternatives. She wishes to proceed and provides informed consent * Treat decompensated CHF with diuretics * Monitor labs Clinical Quality Measures DVT/VTE Risk/Contraindication: Risk Factor Score Per Nursin RFS Level Per Nursing on Admit: 2=Moderate ANDREINA LEAHY MD FACP FAC CCDS Jun 28, 2020 13:54
[2020-06-28] MEDS ORDERED: LIDOCAINE 1% INJ 20 ML 20 ML VIAL ONE (15:21)
[2020-06-28] MEDS ORDERED: fentaNYL INJECTION 100 MCG/2 ML AMP ONE (15:21)
[2020-06-28] MEDS ORDERED: MIDAZOLAM 5 MG/5 ML (VERSED) VIAL ONE (15:21)
[2020-06-28] MEDS ORDERED: HEParin (CATH LAB) 2,000 ML IV ONE (15:22)
[2020-06-28] MEDS ORDERED: NS IV 1000 ML 1,000 ML ONE (15:22)
[2020-06-28] MEDS ORDERED: HEParin 1000 UNIT/ML (10ML VIAL) FOR BOLUS ONE (16:09)
[2020-06-28] MEDS ORDERED: EPTIFIBATIDE BOLUS 20 ML IV ONE (16:10)
[2020-06-28] MEDS: NS IV 1000 ML 1,000 ML IV SCH ×2 (16:36→18:31)
[2020-06-28] MEDS ORDERED: CLOPIDOGREL 75 MG (PLAVIX) TABLET ONE (17:22)
[2020-06-28] MEDS ORDERED: KCL 20 MEQ TAB (K-DUR) PO ONE ×2 (17:45→18:24)
[2020-06-28] MEDS ORDERED: FUROSEMIDE 40 MG/4 ML INJ (LASIX) IVP ONE (17:45)
[2020-06-28] MEDS ORDERED: PATIENT MAY USE OWN MEDS, ALL PO SCH (17:45)
[2020-06-28] MEDS ORDERED: FUROSEMIDE 40 MG/4 ML INJ (LASIX) ONE (18:24)
[2020-06-28] MEDS: warFARin 1 MG (COUMADIN) TAB PO SCH (18:33)
[2020-06-28] MEDS ORDERED: CARVEDILOL 12.5 MG (COREG) TABLET ONE (22:10)
[2020-06-29] VITALS (20 sets, daily range): BP systolic 93–141; BP diastolic 44–130
--- NOTE | 2020-06-29 01:02 | CARDIAC CATHETERIZATION ---
DATE OF SERVICE: 06/28/2020 CARDIAC CATHETERIZATION AND CORONARY INTERVENTION REPORT The patient is an 80-year-old lady, who is known to have coronary artery disease and who was hospitalized with acute systolic congestive heart failure and acute non-ST elevation myocardial infarction. Cardiac catheterization was carried out after having obtained informed consent for cardiac catheterization and possible ad hoc coronary intervention. DESCRIPTION OF PROCEDURE: She was brought to the cardiac catheterization laboratory in a fasting state. Right groin was prepared and draped in the usual sterile fashion. Lidocaine 1% for local anesthesia. Modified Seldinger technique was used to advance a 6-Malawian sheath in right femoral artery, 5-Malawian JL4 catheter for left coronary angiography, 5-Malawian JR4 catheter for right coronary angiography, 5-Malawian pigtail catheter was used for left heart catheterization and left ventricular angiography. Left heart catheterization was carried out after percutaneous intervention had been carried out to the left circumflex and left anterior descending arteries that is described below. PERCUTANEOUS INTERVENTION OF THE LEFT CIRCUMFLEX: The left circumflex artery was occluded in its proximal portion. It was exhibiting 99% to 100% stenosis with CODY 0 to 1 flow antegradely. We used a 6-Malawian Q4 guide to engage the left coronary artery. We advanced a Whisper extra support wire across the lesion and the tip was placed in the distal vessel. We carried out balloon angioplasty with Emerge 1.5 x 20 mm and then Emerge 2.5 x 20 mm balloons. This reduced the stenosis from nearly 100% to less than 50%. Normal antegrade flow was restored. We made several attempts to advance a stent to the lesion, but we were not able to do so due to proximal vessel calcification and tortuosity. This was despite the use of a winston wire (ChoICE floppy). PERCUTANEOUS INTERVENTION TO THE LEFT ANTERIOR DESCENDING: After we had completed intervention to the left circumflex, we removed the ChoICE floppy wire and used the Whisper extra support wire to cross the lesions in the extensively stented segment of the left anterior descending that extends from the proximal vessel to beyond the mid part of the left anterior descending. We placed the distal part of the wire in the apical part of the vessel and carried out balloon angioplasty with Emerge 2.5 x 30 mm and 3.5 x 30 mm balloon. This reduced the stenosis from 90% to less than 50% and restored a normal antegrade flow (improvement from CODY 2 to CODY 3). Angiography of the right femoral artery was carried out through the sheath and we use Mynx to achieve hemostasis. She tolerated the procedure well. HEMODYNAMICS: Left ventricular end-diastolic pressure following coronary angiography was 18 mmHg. There was no significant pressure gradient on pullback across the aortic valve. Ascending aortic pressure was 98/52 with a mean of 69 mmHg. LEFT VENTRICULAR ANGIOGRAPHY: Left ventricular angiography was carried out in right anterior oblique projection. There was apical akinesis to dyskinesis. Left ventricular ejection fraction was approximately 40%. CORONARY ANGIOGRAPHY: There was extensive coronary calcification. Left main coronary artery did not exhibit significant disease. The left circumflex artery was occluded in its proximal portion and the stenosis was reduced to less than 50% following balloon angioplasty today. The left anterior descending artery was known to have Synergy 3.5 x 28 and 3.0 x 16 mm stents. They were exhibiting severe in-stent restenosis to which successful balloon angioplasty was carried out with reduction of stenosis to less than 50%. The right coronary artery is extensively stented. It is known to have Synergy 4.0 x 38 and 3.5 x 38 mm stents. These were patent. All vessels have diffused moderate disease. Elevated left ventricular end-diastolic pressure. CONCLUSIONS: 1. Coronary artery disease as detailed above. The left circumflex artery had a near total occlusion that was reduced to less than 50% with balloon angioplasty. The left anterior descending artery is known to have Synergy 3.5 x 28 and 3.0 x 16 mm stents that were exhibiting 90% stenosis. This was reduced to less than 50% with balloon angioplasty. The right coronary artery is known to have Synergy 4.0 x 38 and 3.5 x 38 stents that are patent. All vessels have diffuse moderate disease. 2. Ischemic cardiomyopathy with apical akinesis to dyskinesis and left ventricular ejection fraction approximately 40%. 3. Elevated left ventricular end-diastolic pressure. DISCUSSION AND RECOMMENDATIONS: We are continuing her clopidogrel and warfarin. For now, we have also added aspirin to the regimen. This be discontinued in a few days. We will continue Plavix for several months and then consider replacing Plavix with aspirin. She remains hospitalized at the time of this dictation for further optimization of her regimen. Job ID: [id number] DocumentID: [id number] Dictated Date: 06/28/2020 17:55:52 [employer] Machine Helper Date: 06/28/2020 20:58:08 Dictated By: ANDREINA LEAHY MD, MA, FACP, FACC, MTDD
[2020-06-29] MEDS: NS IV 1000 ML 1,000 ML IV SCH ×4 (03:10→13:40)
[2020-06-29] MEDS: ACETAMINOPHEN 325 MG TABLET PO PRN ×3 (03:55→20:23)
[2020-06-29 04:14] LABS: MEAN PLATELET VOLUME 10.1 fL (9.0-12.2); WHITE BLOOD COUNT 5.5 10^3/uL (4.3-11.0)
[2020-06-29 04:26] LABS: CHLORIDE 103 MMOL/L (98-107); POTASSIUM 2.9 MMOL/L (3.6-5.0); SODIUM 144 MMOL/L (135-145)
[2020-06-29 04:28] LABS: CALCIUM 8.5 MG/DL (8.5-10.1); GLUCOSE 86 MG/DL (70-105); TRIGLYCERIDES 78 MG/DL (<150); VLDL CHOLESTEROL 16 MG/DL (5-40)
[2020-06-29 04:30] LABS: CARBON DIOXIDE 27 MMOL/L (21-32)
[2020-06-29 04:32] LABS: CREATININE SERUM 0.62 MG/DL (0.60-1.30); GFR ESTIMATED > 60
[2020-06-29 04:33] LABS: BUN/CREATININE RATIO 15; CHOLESTEROL 101 MG/DL (< 200)
[2020-06-29 04:34] LABS: HDL CHOLESTEROL 40 MG/DL (40-60)
[2020-06-29] MEDS ORDERED: KCL 20 MEQ TAB (K-DUR) PO SCH ×2 (06:00→07:00)
[2020-06-29] MEDS ORDERED: POTASSIUM CL 10MEQ/50ML IVPB 50 ML IV SCH ×2 (06:00→06:30)
[2020-06-29] MEDS ORDERED: MAGNESIUM 1 GM/100 ML IVPB 100 ML IV SCH (06:00)
[2020-06-29] MEDS: FUROSEMIDE 40 MG/4 ML INJ (LASIX) IVP SCH ×2 (06:24→17:36)
[2020-06-29] MEDS ORDERED: KCL 20 MEQ TAB (K-DUR) PO ONE ×3 (07:00→11:00)
[2020-06-29] MEDS ORDERED: KCL 20 MEQ TAB (K-DUR) PO NR ×3 (09:00→13:00)
--- NOTE | 2020-06-29 09:01 | NUR ---
0835- BROUSSARD REMOVED. 800 ML OF CLEAR LIGHT YELLOW URINE DRAINED FROM BROUSSARD CATH AT THIS TIME. 0850- UP TO COMMODE WITH ASSIST X 1 FROM THIS RN. VOIDED SMALL AMOUNT. PT THOUGHT SHE NEEDED TO HAVE BM AT THIS TIME. PASSED GAS BUT NO BM NOTED. AFTER FINISHED WITH COMMODE AMBULATED 20 FEET WITH ASSIST X 1 TO CHAIR. UP IN CHAIR WITH FEET UP AT THIS TIME. CALL LIGHT PLACED IN PT'S HAND. BEDSIDE TABLE WITH DRINK AND PERSONAL CELL PHONE NEXT TO PT. PT VOICES NO CONCERNS AT THIS TIME AND DENIES PAIN. 0856- DR ANAND AT BEDSIDE TALKING WITH PT.
[2020-06-29] MEDS: CLOPIDOGREL 75 MG (PLAVIX) TABLET PO SCH (09:11)
[2020-06-29] MEDS: CARVEDILOL 12.5 MG (COREG) TABLET PO SCH ×2 (09:11→17:36)
[2020-06-29] MEDS: lisINopril 10 MG (PRINIVIL) TABLET PO SCH (09:12)
[2020-06-29] MEDS: ASPIRIN E.C. 81 MG (ECOTRIN) TAB PO SCH (09:18)
--- NOTE | 2020-06-29 09:40 | Progress Note - Cardiology ---
Cardiology SOAP Progress Note Subjective: Sitting up in the recliner at the bedside. States she feels better this morning. No c/o CP or dyspnea. No c/o palpitations. She reports mild discomfort at the right groin site with palpation. Objective: I&O/Vital Signs 06/29/20 06/29/20 06/30/20 20:00 22:53 04:32 Temp 36.2 36.4 Pulse 69 59 Resp 16 16 B/P (MAP) 109/54 (72) 105/58 (74) Pulse Ox 98 98 O2 Delivery Nasal Cannula Nasal Cannula Nasal Cannula O2 Flow Rate 1.50 1.50 1.50 06/30/20 00:00 Intake Total 1000 ml Output Total 250 ml Balance 750 ml Side: right Groin site without hematoma: Yes Condition: DP/PT pulses palpable, extremity w/d/p Bruising: mild bruising Constitutional: AAO x 3, well-developed, well-nourished Respiratory: No accessory muscle use; other (good bilateral air entry, diminished at the bases) Cardiovascular: regular rate-rhythm, S1 and S2, systolic murmur (soft MAGDALENE at the card base) Gastrointestional: No tender; soft; No guarding, No rebound; audible bowel sounds Extremities: No clubbing, No cyanosis, No significant edema Neurologic/Psychiatric: oriented x 3, other (moves all her limbs equally) Skin: No rash on exposed areas, No ulcerations on exposed areas Results/Procedures: Labs Laboratory Tests 06/29/20 18:09: 06/30/20 04:35: Sodium Level 144, Potassium Level 4.4, Chloride Level 105, Carbon Dioxide Level 30, Anion Gap 9, Blood Urea Nitrogen 12, Creatinine 0.72, Estimat Glomerular Filtration Rate > 60, BUN/Creatinine Ratio 17, Glucose Level 93, Calcium Level 8.9, Magnesium Level 1.6 Microbiology 06/28/20 MRSA Screen - Final, Complete MRSA not isolated A/P: Assessment: Acute, decompensated, systolic and diastolic CHF - improved Ac NSTEMI CAD. Card cath of Jun 28, 2020: The left circumflex artery had a near total occlusion that was reduced to less than 50% with balloon angioplasty. The left anterior descending artery is known to have Synergy 3.5 x 28 and 3.0 x 16 mm stents that were exhibiting 90% stenosis. This was reduced to less than 50% with balloon angioplasty. The right coronary artery is known to have Synergy 4.0 x 38 and 3.5 x 38 stents that are patent. All vessels have diffused moderate disease. Ischemic cardiomyopathy with apical akinesis to dyskinesis and left ventricular ejection fraction approximately 40%. Elevated left ventricular end-diastolic pressure. ICM - LVEF 40% per cardiac cath of Jun 28, 2020 Echo of 11/18/19: LVEF 40-45%, apical and basal inf hypokinesis, biatrial enla rgement, mod MR, mod to sev TR, RVSP 35 mmHg Chronic A Fib S/p Medtronic dual chamber pacemaker in 2017 at ([facility]' - Dr Pierce). Functioning normally per interrogation of February 15, 2020 Chronic warfarin anticoag - managed by her PCP Carotid art rodger. 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 She does not recall the date of her stroke Gen weakness and limited ambulation Poor memory Plan: * S/P cardiac cath with successful intervention * Continue dual antiplatelet tx * Treat decompensated CHF with diuretics * Monitor labs * Replace electrolytes CRIS OSBORN Jun 29, 2020 09:40
--- NOTE | 2020-06-29 11:06 | Progress Note - Hospitalist ---
SHANNON RIVERA MED STUDENT 06/29/20 1106: Subjective HPI/CC On Admission CC: Chest pain with NSTEMI HPI: This is an 80yoWF who presented to the ER with chest pain and found to have elevated troponin but no ST changes on EKG. DR Valenzuela recommended admit. Patient just had home O2 started night after visiting with PCP earlier that day. AF noted on Telemetry. Since 2016 she can't breathe through her nose and that makes O2 supplement via NC problematic. TSH was also checked in clinic. Subjective/Events-last exam awake, alert, no distress on 2L NC Potassium being repleted reviewed labs and meds Objective Exam Vital Signs Vital Signs Date Time Temp Pulse Resp B/P (MAP) Pulse Ox O2 Delivery O2 Flow Rate FiO2 06/29/20 10:00 105 38 107/61 (76) 97 Nasal Cannula 2.00 06/29/20 08:25 36.0 Capillary Refill : Less Than 3 Seconds General Appearance: No Apparent Distress, WD/WN HEENT: PERRL/EOMI, Other (mildly dry mucous membranes) Neck: Normal Inspection, Supple Respiratory: Chest Non Tender, No Accessory Muscle Use, No Respiratory Distress Gastrointestinal: Non Tender, Soft Extremity: Normal Inspection, Normal Range of Motion Neurologic/Psychiatric: Alert, No Motor/Sensory Deficits, Normal Mood/Affect Skin: Normal Color, Warm/Dry Lymphatic: No Adenopathy Results/Procedures Lab Laboratory Tests 06/29/20 03:15 Patient resulted labs reviewed. Assessment/Plan Assessment and Plan Assess & Plan/Chief Complaint hx CVA CAD CHF NSTEMI elevated BNP hypokalemia heart cath yesterday 97% on 2 L O2 NC replete electrolytes AF on OAC PT/OT rehab eval Clinical Quality Measures DVT/VTE Risk/Contraindication: Risk Factor Score Per Nursin RFS Level Per Nursing on Admit: 2=Moderate ATMARA MCLEAN DO 06/29/20 1429: Subjective HPI/CC On Admission Date Seen by Provider: Jun 29, 2020 Time Seen by Provider: 09:00 Subjective/Events-last exam Pt is stable No dyspnea Back pain is reported Cath performed yesterday with intervention PT and OT and rehab will be placed Changing to 4th floor status Review of Systems General: Fatigue, Malaise Neurological: Weakness Objective Exam General Appearance: No Apparent Distress, WD/WN, Chronically ill Respiratory: Normal Breath Sounds Cardiovascular: Regular Rate, Rhythm Neurologic/Psychiatric: Alert, Oriented x3 Assessment/Plan Assessment and Plan Assess & Plan/Chief Complaint Assessment: NSTEMI Hypoxia on home on O2 at home since 06/26/20 CVA 2016 AF OAC CHF Plan: Dr Valenzuela consult O2 AF on OAC 06/29/20: Transfer to 4th floor status Physical therapy & occupational therapy Cardiac cath reviewed Supervisory-Addendum Brief Verification & Attestation Participated in pt care: history, MDM, physical Personally performed: exam, history, MDM, supervision of care Care discussed with: Medical Student Procedures: n/a Results interpretation: Verified all documentation Verification and Attestation of Medical Student E/M Service A medical student performed and documented this service in my presence. I reviewed and verified all information documented by the medical student and made modifications to such information, when appropriate. I personally performed the physical exam and medical decision making. Tamara Mclean, Jun 29, 2020,21:40 SHANNON RIVERA MED STUDENT Jun 29, 2020 11:06 TAMARA MCLEAN DO Jun 29, 2020 14:29
--- NOTE | 2020-06-29 12:02 | Physical Therapy Evaluation ---
PT Evaluation-General Medical Diagnosis Admission Date Jun 28, 2020 at 06:56 Medical Diagnosis: NSTEMI/acute or chronic heart failure Onset Date: Jun 28, 2020 Therapy Diagnosis Therapy Diagnosis: generalized weakness/debility Precautions Precautions/Isolations: Fall Prevention, Standard Precautions Weight Bear Status Right Lower Extremity: Right Weight Bearing/Tolerated Left Lower Extremity: Left Weight Bearing/Tolerated Referral Physician: Vinay Reason for Referral: Evaluation/Treatment Medical History Pertinent Medical History: Atrial Fib, CAD, CVA, HTN Current History EMS secondary to waking up having a panic attack then found O2 was not set up properly. Reviewed History: Yes Social History Home: Single Level Current Living Status: Spouse Entry Into Home: Stairs With Railing PT Steps Into Home: 2 Prior Prior Level of Function SCALE: Activities may be completed with or without assistive devices. 5-Eqytkiktis-rglohzv completes the activity by him/herself with no assistance from a helper. 5-Set-up or Clean-up Assistance-helper sets up or cleans up; patient completes activity. Bergoo assists only prior to or following the activity. 4-Supervision or Touching Assistance-helper provides verbal cues and/or touching/steadying and/or contact guard assistance as patient completes act ivity. Assistance may be provided throughout the activity or intermittently. 3-Partial/Moderate Assistance-helper does LESS THAN HALF the effort. Bergoo lifts, holds or supports trunk or limbs, but provides less than half the effort. 2-Substantial/Maximal Assistance-helper does MORE THAN HALF the effort. Bergoo lifts or holds trunk or limbs and provides more than half the effort. 0-Xibsuwiej-xlzvjw does ALL the effort. Patient does none of the effort to complete the activity. Or, the assistance of 2 or more helpers is required for the patient to complete the activity. If activity was not attempted, code reason: 7-Patient Refused. 9-Not Applicable-not attempted and the patient did not perform the activity before the current illness, exacerbation or injury. 10-Not Attempted due to Environmental Limitations-(lack of equipment, weather restraints, etc.). 88-Not Attempted due to Medical Conditions or Safety Concerns. Bed Mobility: 6 Transfers (B,C,W/C): 6 Gait: 6 Stairs: 6 Indoor Mobility (Ambulation): Independent Stairs: Independent Prior Devices Use: None PT Evaluation-Current Subjective Patient is very reluctant to use FWW for safety and reports she will not utilize one at home upon dismissal. PT attempted to educate patient on safety and FWW use, however, patient continued to declined. Agrees to use FWW in hospital. Objective Patient Orientation: Normal For Age Attachments: Oxygen ROM/Strength ROM Lower Extremities bilateral LE WFL Strength Lower Extremities 3+/5 grossly bilateral LE Integumentary/Posture Integumentary refer to nursing notes Bowel Incontinence: No Bladder Incontinence: No Posture kyphotic Neuromuscular (Tone, Coordination, Reflexes) slightly diminished coordination due to weakness/deconditioned Sensory Vision: Functional Hearing: Functional Sensation Right Lower Extremit: Intact Sensation Left Lower Extremity: Intact Transfers Roll Left to Right (QC): 6 Lying to Sitting/Side of Bed(Q: 6 Sit to Stand (QC): 5 Chair/Oha-jz-Umddi Xfer(QC): 5 Gait Does the Patient Walk?: Yes Mode of Locomotion: Walk Anticipated Mode of Locomotion: Walk Walk 10 feet (QC): 5 Distance: 15' Gait Assistive Device: FWW Comments/Gait Description slow, shuffle gait sequence Wheelchair Training Does the Pt Use a Wheelchair?: No Balance Sitting Static: Normal Sitting Dynamic: Normal Standing Static: Fair Standing Dynamic: Fair Assessment/Needs 80 y.o. female, will benefit from skilled PT to address functional strength and mobility to improve current LOF to safely return to home at maximum LOF. Patient is limited by functional mobility and safety and refuses to utilize FWW in home due to size of home, limited space and right UE shoulder pain. Education with patient on importance of safety and utilizing AD to ensure patient mobility. 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: Fair PT School Psychology Specialist Goals School Psychology Specialist Goals PT Long-Term Goals Time Frame: Jul 11, 2020 Roll Left & Right (QC): 6 Sit to Lying (QC): 6 Lying-Sitting on Side/Bed(QC): 6 Sit to Stand (QC): 6 Chair/Iwi-ku-Ucvdm Xfer(QC): 6 Toilet Transfer (QC): 6 Does the Patient Walk: Yes Walk 10 feet (QC): 6 Walk 50ft with 2 Turns (QC): 6 Walk 150 ft (QC): 6 1 Step (curb) (QC): 6 PT Plan Problem List Problem List: Activity Tolerance, Functional Strength, Safety, Balance, Gait, Transfer, Bed Mobility Treatment/Plan Treatment Plan: Continue Plan of Care Treatment Plan: Bed Mobility, Education, Functional Activity Tawanna, Functional Strength, Gait, Safety, Therapeutic Exercise, Transfers Treatment Duration: Jul 11, 2020 Frequency: 6 times per week Estimated Hrs Per Day: .25 hour per day Patient and/or Family Agrees t: Yes Time/GCodes Time In: 1115 Time Out: 1128 Total Billed Treatment Time: 13 Total Billed Treatment 1 visit EVMod 13 min LESLEY MURRAY PT Jun 29, 2020 12:02
--- NOTE | 2020-06-29 15:00 | Occupational Therapy Eval ---
OT Evaluation-General/PLF Medical Diagnosis Admission Date Jun 28, 2020 at 06:56 Medical Diagnosis: NSTEMI/acute or chronic heart failure Onset Date: Jun 28, 2020 Therapy Diagnosis Therapy Diagnosis: Weakness, Decreased ADL skills Precautions Precautions/Isolations: Fall Prevention, Standard Precautions Weight Bear Status Weight Bearing Restriction: Weight Bearing/Tolerated Referral Physician: Vinay Martin Reason: Activity Tolerance, Self Care, Evaluation/Treatment, Strengthening/ROM Medical History Pertinent Medical History: Atrial Fib, CAD, CVA, HTN Additional Medical History Coronary stent, vascular surgery Current History Pt. came in with chest pain with NSTEMI. Had cath 06-28-20. Reviewed History: Yes Social History Home: Single Level Current Living Status: Spouse Entry Into Home: Stairs With Railing Steps Into Home: 2 ADL-Prior Level of Function SCALE: Activities may be completed with or without assistive devices. 3-Klmryulgnp-qqdrarx completes the activity by him/herself with no assistance from a helper. 5-Set-up or Clean-up Assistance-helper sets up or cleans up; patient completes activity. Bracey assists only prior to or following the activity. 4-Supervision or Touching Assistance-helper provides verbal cues and/or touching/steadying and/or contact guard assistance as patient completes activity. Assistance may be provided throughout the activity or intermittently. 3-Partial/Moderate Assistance-helper does LESS THAN HALF the effort. Bracey lifts, holds or supports trunk or limbs, but provides less than half the effort. 2-Substantial/Maximal Assistance-helper does MORE THAN HALF the effort. Bracey lifts or holds trunk or limbs and provides more than half the effort. 8-Kzlxahutt-ctiijo does ALL the effort. Patient does none of the effort to complete the activity. Or, the assistance of 2 or more helpers is required for the patient to complete the activity. If activity was not attempted, code reason: 7-Patient Refused. 9-Not Applicable-not attempted and the patient did not perform the activity before the current illness, exacerbation or injury. 10-Not Attempted due to Environmental Limitations-(lack of equipment, weather restraints, etc.). 88-Not Attempted due to Medical Conditions or Safety Concerns. ADL PLOF Comments Pt. states that she is typically independent with daily skills. She lives with her spouse in [place]. She has a walker but does not use in her home. Self Care: Independent Functional Cognition: Independent DME/Equipment: Bath Chair, Bedside Commode, Shower DME/Equipment Comments Walker OT Current Status Subjective Pt. does not report pain. States that she is just "very tired." Appearance Pt. in bed. Agrees to work with OT. Mental Status/Objective Patient Orientation: Person, Place Current Upper Extremity ROM Pt. has very limited AROM in right shoulder. States that she is "bone on bone." Left UE WFL ADL-Treatment Eating (QC): 5 On/Off Footwear (QC): 4 Toileting Hygiene (QC): 7 Pt. transfers supine-sit with min assist. Sits on side of bed and balances self while her and OT talk. Pt. is able to bring her feet up to her to doff/don slippers. Pt. declines having to use bathroom. She is able to stand at bedside with CGA, and requires cues to take steps to HOB. Pt. sits back down, and is able to transfer self sit-supine. Pt. states that she feels very fatigued. I'm "worn out." No street clothing available at this time. OT educates pt. on purpose of treatment, and need for further activity to increase overall strength. Pt. verbalizes understanding. Education OT Patient Education: Correct positioning, Modified ADL techniques, Progress toward Goal/Update tx plan, Purpose of tx/functional activities, Reviewed precautions, Rehab process, Transfer techniques Teaching Recipient: Patient Teaching Methods: Demonstration Response to Teaching: Verbalize Understanding, Return Demonstration OT [facility] Goals Set Illustrator Goals Time Frame: Jul 13, 2020 Eating (QC): 6 Oral Hygiene (QC): 6 Toileting Hygiene (QC): 6 Shower/Bathe Self (QC): 4 Upper Body Dressing (QC): 5 Lower Body Dressing (QC): 4 On/Off Footwear (QC): 4 Additional Goals: 1-Demonstrate ADL Tasks, 2-Verbalize Understanding, 3- ImproveStrength/Tawanna 1=Demonstrate adherence to instructed precautions during ADL tasks. 2=Patient will verbalize/demonstrate understanding of assistive devices/modifications for ADL. 3=Patient will improve strength/tolerance for activity to enable patient to perform ADL's. OT Education/Plan Problem List/Assessment Assessment: Decreased Activ Tolerance, Dependent Transfers, Impaired I ADL's, Impaired Self-Care Skills, Restricted Funct UE ROM Discharge Recommendations Plan/Recommendations: Continue POC Therapy Discharge Recommendati: Post Acute OT Treatment Plan/Plan of Care Treatment,Training & Education: Yes Patient would benefit from OT for education, treatment and training to promote independence in ADL's, mobility, safety and/or upper extremity function for ADL's. Plan of Care: ADL Retraining, Functional Mobility, UE Funct Exercise/Act Treatment Duration: Jul 13, 2020 Frequency: 5 times per week Estimated Hrs Per Day: .25 hour per day Agreement: Yes 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: Good Time/GCodes Start Time: 13:00 Stop Time: 13:25 Total Time Billed (hr/min): 25 Billed Treatment Time 1, EVM x 15minutes, ADL x 15minutes ZACARIAS PARRA OT Jun 29, 2020 15:00
--- NOTE | 2020-06-29 16:02 | NUR ---
REPORT GIVEN TO Veronica BOYD RN.
--- NOTE | 2020-06-29 16:15 | NUR ---
REC'D PER WC FROM ICU. ALERT AND ORIENTED. O2 ON @ 2L N/C. PT TALKING WITH STAFF AND ASKS IF SHE WAS TESTED FOR COVID. STATES "I DON'T WANT TO KNOW", THEN REPORTS THAT HER NEIGHBOR TESTED POSITIVE AND SHE WAS WITH HIM ON THAT DAY. DR. ANAND NOTIFIED AND ORDERS REC'D FOR COVID TEST AND TO BE PLACED IN ISOLATION. CARE OF PT TO ARLETH YU.
[2020-06-29] MEDS: warFARin 1 MG (COUMADIN) TAB PO SCH (17:48)
--- NOTE | 2020-06-29 18:05 | Progress Note - Cardiology ---
Cardiology SOAP Progress Note Subjective: No cp or palp or syncope or shortness of breath or groin or leg discomfort/discoloration No focal weakness Some gen weakness No n/v/d Objective: I&O/Vital Signs 06/29/20 06/29/20 06/29/20 06/29/20 06:36 07:00 08:00 08:22 Pulse 60 66 73 Resp 14 15 B/P (MAP) 102/44 (63) 119/63 (81) Pulse Ox 96 96 96 O2 Delivery Nasal Cannula Nasal Cannula Nasal Cannula O2 Flow Rate 2.00 2.00 2.00 06/29/20 06/29/20 06/29/20 06/29/20 08:25 09:00 10:00 11:00 Temp 36.0 Pulse 79 105 123 Resp 18 38 B/P (MAP) 141/130 (134) 107/61 (76) 103/55 (71) Pulse Ox 94 97 98 O2 Delivery Nasal Cannula Nasal Cannula Nasal Cannula O2 Flow Rate 2.00 2.00 2.00 06/29/20 06/29/20 06/29/20 06/29/20 12:00 12:49 12:52 13:00 Pulse 61 60 B/P (MAP) 111/69 (83) 93/52 (66) Pulse Ox 99 96 O2 Delivery Nasal Cannula Nasal Cannula Nasal Cannula O2 Flow Rate 2.00 2.00 2.00 06/29/20 06/29/20 06/29/20 06/29/20 14:00 15:00 15:04 16:00 Temp 36.2 B/P (MAP) 102/58 (73) 108/55 (72) 96/65 (75) O2 Delivery Nasal Cannula Nasal Cannula Nasal Cannula O2 Flow Rate 2.00 2.00 2.00 06/29/20 06/29/20 16:39 16:55 Temp 35.9 Pulse 64 Resp 18 B/P (MAP) 102/53 (69) Pulse Ox 96 O2 Delivery Nasal Cannula Nasal Cannula O2 Flow Rate 2.00 2.00 06/29/20 00:00 Intake Total 300 ml Output Total 2570 ml Balance -2270 ml Side: right Groin site without hematoma: Yes Condition: DP/PT pulses palpable, extremity w/d/p Bruising: mild bruising Constitutional: AAO x 3, well-developed, well-nourished Respiratory: No accessory muscle use; other (good bilateral air entry, diminished at the bases) Cardiovascular: regular rate-rhythm, S1 and S2, systolic murmur (soft MAGDALENE at the card base) Gastrointestional: No tender; soft; No guarding, No rebound; audible bowel sounds Extremities: No clubbing, No cyanosis, No significant edema Neurologic/Psychiatric: oriented x 3, other (moves all her limbs equally) Skin: No rash on exposed areas, No ulcerations on exposed areas Results/Procedures: Labs Laboratory Tests 06/29/20 03:15: White Blood Count 5.5, Red Blood Count 3.73L, Hemoglobin 10.0L, Hematocrit 32L, Mean Corpuscular Volume 85, Mean Corpuscular Hemoglobin 27, Mean Corpuscular Hemoglobin Concent 32, Red Cell Distribution Width 16.7H, Platelet Count 204, Mean Platelet Volume 10.1, Sodium Level 144, Potassium Level 2.9L, Chloride Level 103, Carbon Dioxide Level 27, Anion Gap 14, Blood Urea Nitrogen 9, Creatinine 0.62, Estimat Glomerular Filtration Rate > 60, BUN/Creatinine Ratio 15, Glucose Level 86, Calcium Level 8.5, Magnesium Level 1.7, Triglycerides Level 78, Cholesterol Level 101, LDL Cholesterol Direct 43, VLDL Cholesterol 16, HDL Cholesterol 40 Microbiology 06/28/20 MRSA Screen - Final, Complete MRSA not isolated A/P: Assessment: Acute, decompensated, systolic and diastolic CHF - improved Ac NSTEMI CAD. Card cath of Jun 28, 2020: The left circumflex artery had a near total occlusion that was reduced to less than 50% with balloon angioplasty. The left anterior descending artery is known to have Synergy 3.5 x 28 and 3.0 x 16 mm stents that were exhibiting 90% stenosis. This was reduced to less than 50% with balloon angioplasty. The right coronary artery is known to have Synergy 4.0 x 38 and 3.5 x 38 stents that are patent. All vessels have diffused moderate disease. Ischemic cardiomyopathy with apical akinesis to dyskinesis and left ventricular ejection fraction approximately 40%. Elevated left ventricular end-diastolic pressure. ICM - LVEF 40% per cardiac cath of Jun 28, 2020 Echo of 11/18/19: LVEF 40-45%, apical and basal inf hypokinesis, biatrial enlargement, mod MR, mod to sev TR, RVSP 35 mmHg Chronic A Fib S/p Medtronic dual chamber pacemaker in 2017 at ([facility] - Dr Pierce). Functioning normally per interrogation of February 15, 2020 Chronic warfarin anticoag - managed by her PCP Carotid cally soares. Pt reports h/o R carotid stenting, but does not know when and wh ere it was done H/o CVA that resulted in L-sided numbness and weakness from which she says she recovered. She does not recall the date of her stroke Gen weakness and limited ambulation Poor memory Plan: * S/P cardiac cath with successful intervention * Continue dual antiplatelet tx * Treat decompensated CHF with diuretics * Monitor labs * Replace electrolytes ANDREINA LEAHY MD FACP FAC CCDS Jun 29, 2020 18:05
[2020-06-30 04:32] VITALS: BP 105/58
[2020-06-30 05:36] LABS: CHLORIDE 105 MMOL/L (98-107); POTASSIUM 4.4 MMOL/L (3.6-5.0); SODIUM 144 MMOL/L (135-145)
[2020-06-30 05:38] LABS: CALCIUM 8.9 MG/DL (8.5-10.1); GLUCOSE 93 MG/DL (70-105)
[2020-06-30 05:40] LABS: CARBON DIOXIDE 30 MMOL/L (21-32)
[2020-06-30 05:42] LABS: CREATININE SERUM 0.72 MG/DL (0.60-1.30); GFR ESTIMATED > 60
[2020-06-30 05:43] LABS: BUN/CREATININE RATIO 17
[2020-06-30 05:44] LABS: MAGNESIUM 1.6 MG/DL (1.6-2.4)
[2020-06-30] MEDS: FUROSEMIDE 40 MG/4 ML INJ (LASIX) IVP SCH (06:45)
[2020-06-30 07:59] VITALS: BP 132/60
[2020-06-30] MEDS: ASPIRIN E.C. 81 MG (ECOTRIN) TAB PO SCH (08:51)
[2020-06-30] MEDS: CARVEDILOL 12.5 MG (COREG) TABLET PO SCH ×2 (08:51→18:09)
[2020-06-30] MEDS: lisINopril 10 MG (PRINIVIL) TABLET PO SCH (08:51)
[2020-06-30] MEDS: CLOPIDOGREL 75 MG (PLAVIX) TABLET PO SCH (08:51)
--- NOTE | 2020-06-30 09:30 | NUR ---
IRF Evaluation Determination: Denied Explanation: Chart review complete and it appears patient is completing bed mobility with independence, as well as ambulating (15ft, FWW), transferring, and completing [id number] with setup. Based on this information patient does not meet criteria for admission. Thank you for this referral.
[2020-06-30 09:38] VITALS: BP 113/65
--- NOTE | 2020-06-30 09:46 | NUR ---
PT HAD COMPLAINTS OF CHEST PAIN RATING IT AT A 4 OUT OF 10. WHEN ASKED WHERE IT HURTS THE PT POINTED AT THE EPIGASTRIC REGION AND SAID IT HURTS WORSE WHEN SHE SITS UP. STAT EKG ORDERED PER PROTOCOL, DR ANAND AT BEDSIDE. WILL NOTIFY DR LEAHY WELL
--- NOTE | 2020-06-30 10:22 | Progress Note - Hospitalist ---
Subjective HPI/CC On Admission Date Seen by Provider: Jun 30, 2020 Time Seen by Provider: 09:00 CC: Chest pain with NSTEMI HPI: This is an 80yoWF who presented to the ER with chest pain and found to have elevated troponin but no ST changes on EKG. DR Valenzuela recommended admit. Patient just had home O2 started night after visiting with PCP earlier that day. AF noted on Telemetry. Since 2015 she can't breathe through her nose and that makes O2 supplement via NC problematic. TSH was also checked in clinic. Subjective/Events-last exam Pt doing pretty well but SOB when she is getting up to go to the bathroom Had chest pain, but its more mid-epigastric Her neighbor who she was with five days ago was deemed Covid positive so she is in isolation and swab is pending Edema is much improved Review of Systems General: Fatigue, Malaise Pulmonary: Dyspnea Neurological: Weakness Objective Exam Vital Signs Vital Signs Date Time Temp Pulse Resp B/P (MAP) Pulse Ox O2 Delivery O2 Flow Rate FiO2 07/01/20 04:22 36.3 61 16 114/62 (79) 95 Nasal Cannula 2.00 Capillary Refill : Less Than 3 Seconds General Appearance: No Apparent Distress, WD/WN, Chronically ill Respiratory: Normal Breath Sounds Cardiovascular: Regular Rate, Rhythm Neurologic/Psychiatric: Alert, Oriented x3 Results/Procedures Lab Patient resulted labs reviewed. Assessment/Plan Assessment and Plan Assess & Plan/Chief Complaint Assessment: NSTEMI Hypoxia on home on O2 at home since 06/26/20 CVA 2016 AF OAC CHF Plan: Dr Valenzuela consult O2 AF on OAC 06/29/20: Transfer to 4th floor status Physical therapy & occupational therapy Cardiac cath reviewed 06/30/20: Monitor chest pain Monitor shortness of breath Maintain potassium supplement Await COVID swab Diagnosis/Problems Diagnosis/Problems (1) NSTEMI (non-ST elevated myocardial infarction) (2) Acute on chronic heart failure Status: Acute Qualifiers: Heart failure type: unspecified Qualified Codes: I50.9 - Heart failure, unspecified (3) Atrial fibrillation (4) CAD (coronary artery disease) (5) History of right common carotid artery stent placement (6) Anticoagulated on Coumadin (7) Elevated brain natriuretic peptide (BNP) level (8) Pacemaker (9) PVD (peripheral vascular disease) (10) Stented coronary artery Clinical Quality Measures DVT/VTE Risk/Contraindication: Risk Factor Score Per Nursin RFS Level Per Nursing on Admit: 2=Moderate SIXTO ANAND DO Jun 30, 2020 10:22
--- NOTE | 2020-06-30 10:25 | Physical Therapy Progress Note ---
Therapy Progress Note Patient c/o CP. Hold per physician due to tests being run and cardiology assessment. Will attempt in p.m. LESLEY MURRAY PT Jun 30, 2020 10:24
[2020-06-30 10:32] LABS: INR 3.5 (0.8-1.4); PROTHROMBIN TIME PATIENT 35.1 SEC (12.2-14.7)
--- NOTE | 2020-06-30 10:43 | Progress Note - Cardiology ---
Cardiology SOAP Progress Note Subjective: Sitting up in bed reading a book. She reports this morning she had an episode of epigastric pain this morning after eating and taking her medications. She reports it has resolved. She reports h/o GERD. She denies any c/o dyspnea, palpitations, syncope or near syncope. No c/o LE swelling. Objective: I&O/Vital Signs 06/30/20 06/30/20 06/30/20 06/30/20 04:32 07:59 08:00 09:38 Temp 36.4 35.9 Pulse 59 71 80 Resp 16 18 18 B/P (MAP) 105/58 (74) 132/60 (84) 113/65 (81) Pulse Ox 98 95 97 O2 Delivery Nasal Cannula Nasal Cannula Nasal Cannula Nasal Cannula O2 Flow Rate 1.50 1.00 1.50 1.50 06/30/20 11:51 Temp 35.9 Pulse 84 Resp 18 B/P (MAP) 117/56 (76) Pulse Ox 98 O2 Delivery Nasal Cannula O2 Flow Rate 1.00 06/30/20 00:00 Intake Total 1000 ml Output Total 250 ml Balance 750 ml Side: right Groin site without hematoma: Yes Condition: DP/PT pulses palpable, extremity w/d/p Bruising: mild bruising Constitutional: AAO x 3, well-developed, well-nourished Respiratory: No accessory muscle use; other (good bilateral air entry, diminished at the bases) Cardiovascular: regular rate-rhythm, S1 and S2, systolic murmur (soft MAGDALENE at the card base) Gastrointestional: No tender; soft; No guarding, No rebound; audible bowel sounds Extremities: No clubbing, No cyanosis, No significant edema Neurologic/Psychiatric: oriented x 3, other (moves all her limbs equally) Skin: No rash on exposed areas, No ulcerations on exposed areas Results/Procedures: Labs Laboratory Tests 06/29/20 18:09: 06/30/20 04:35: Prothrombin Time 35.1H, INR Comment 3.5H, Sodium Level 144, Potassium Level 4.4, Chloride Level 105, Carbon Dioxide Level 30, Anion Gap 9, Blood Urea Nitrogen 12, Creatinine 0.72, Estimat Glomerular Filtration Rate > 60, BUN/Creatinine Ratio 17, Glucose Level 93, Calcium Level 8.9, Magnesium Level 1.6 Microbiology 06/28/20 MRSA Screen - Final, Complete MRSA not isolated A/P: Assessment: Acute, decompensated, systolic and diastolic CHF - improved Ac NSTEMI CAD. Card cath of Jun 28, 2020: The left circumflex artery had a near total occlusion that was reduced to less than 50% with balloon angioplasty. The left anterior descending artery is known to have Synergy 3.5 x 28 and 3.0 x 16 mm stents that were exhibiting 90% stenosis. This was reduced to less than 50% with balloon angioplasty. The right coronary artery is known to have Synergy 4.0 x 38 and 3.5 x 38 stents that are patent. All vessels have diffused moderate disease. Ischemic cardiomyopathy with apical akinesis to dyskinesis and left ventricular ejection fraction approximately 40%. Elevated left ventricular end-diastolic pressure. ICM - LVEF 40% per cardiac cath of Jun 28, 2020 Echo of 11/18/19: LVEF 40-45%, apical and basal inf hypokinesis, biatrial en largement, mod MR, mod to sev TR, RVSP 35 mmHg Chronic A Fib S/p Medtronic dual chamber pacemaker in 2017 at ([facility]' - Dr Pierce). Functioning normally per interrogation of February 15, 2020 Chronic warfarin anticoag - managed by her PCP Carotid cally soares. 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 She does not recall the date of her stroke Gen weakness and limited ambulation Poor memory Plan: * S/P cardiac cath with successful intervention * Continue dual antiplatelet tx * Continue warfarin for OAC - check INR * Change Lasix to oral * C/O epigastric discomfort this morning, h/o GERD - start PPI * Monitor labs * Replace electrolytes CRIS OSBORN Jun 30, 2020 10:43
[2020-06-30] MEDS ORDERED: PANTOPRAZOLE 40 MG (PROTONIX) TAB PO NR (10:45)
--- NOTE | 2020-06-30 10:55 | Occ Therapy Progress Note ---
Therapy Progress Note Patient c/o CP. Hold per physician due to tests being run and cardiology assessment. Will attempt in BRIANNA Caballero Jun 30, 2020 10:55
[2020-06-30 11:51] VITALS: BP 117/56
--- NOTE | 2020-06-30 13:21 | Progress Note - Cardiology ---
Cardiology SOAP Progress Note Subjective: Epigastric pain this am that is different from chest pain that she presented with. Notes h/o epigastric discomfort that is relieved with antacids No palp or syncope or shortness of breath Malaise has improved No focal weakness No n/v/d Objective: I&O/Vital Signs 06/30/20 06/30/20 06/30/20 06/30/20 04:32 07:59 08:00 09:38 Temp 36.4 35.9 Pulse 59 71 80 Resp 16 18 18 B/P (MAP) 105/58 (74) 132/60 (84) 113/65 (81) Pulse Ox 98 95 97 O2 Delivery Nasal Cannula Nasal Cannula Nasal Cannula Nasal Cannula O2 Flow Rate 1.50 1.00 1.50 1.50 06/30/20 11:51 Temp 35.9 Pulse 84 Resp 18 B/P (MAP) 117/56 (76) Pulse Ox 98 O2 Delivery Nasal Cannula O2 Flow Rate 1.00 06/30/20 00:00 Intake Total 1000 ml Output Total 250 ml Balance 750 ml Side: right Groin site without hematoma: Yes Condition: DP/PT pulses palpable, extremity w/d/p Bruising: mild bruising Constitutional: AAO x 3, well-developed, well-nourished Respiratory: No accessory muscle use; other (good bilateral air entry, dimi nished at the bases) Cardiovascular: regular rate-rhythm, S1 and S2, systolic murmur (soft MAGDALENE at the card base) Gastrointestional: No tender; soft; No guarding, No rebound; audible bowel sounds Extremities: No clubbing, No cyanosis, No significant edema Neurologic/Psychiatric: oriented x 3, other (moves all her limbs equally) Skin: No rash on exposed areas, No ulcerations on exposed areas Results/Procedures: Labs Laboratory Tests 06/29/20 18:09: 06/30/20 04:35: Prothrombin Time 35.1H, INR Comment 3.5H, Sodium Level 144, Potassium Level 4.4, Chloride Level 105, Carbon Dioxide Level 30, Anion Gap 9, Blood Urea Nitrogen 12, Creatinine 0.72, Estimat Glomerular Filtration Rate > 60, BUN/Creatinine Ratio 17, Glucose Level 93, Calcium Level 8.9, Magnesium Level 1.6 Microbiology 06/28/20 MRSA Screen - Final, Complete MRSA not isolated Laboratory Tests 06/29/20 03:15 06/30/20 04:35 A/P: Assessment: Acute, decompensated, systolic and diastolic CHF - improved Ac NSTEMI, treated with PCI (see below) CAD. Card cath of Jun 28, 2020: The left circumflex artery had a near total occlusion that was reduced to less than 50% with balloon angioplasty. The left anterior descending artery is known to have Synergy 3.5 x 28 and 3.0 x 16 mm stents that were exhibiting 90% stenosis. This was reduced to less than 50% with balloon angioplasty. The right coronary artery is known to have Synergy 4.0 x 38 and 3.5 x 38 stents that are patent. All vessels have diffused moderate disease. Ischemic cardiomyopathy with apical akinesis to dyskinesis and left ventricular ejection fraction approximately 40%. Elevated left ventricular end-diastolic pressure. ICM - LVEF 40% per cardiac cath of Jun 28, 2020 Echo of 11/18/19: LVEF 40-45%, apical and basal inf hypokinesis, biatrial enlargement, mod MR, mod to sev TR, RVSP 35 mmHg Chronic A Fib S/p Medtronic dual chamber pacemaker in 2017 at ([facility]' - Dr Pierce). Functioning normally per interrogation of February 15, 2020 Chronic warfarin anticoag - managed by her pcp. Supratherapeutic INR on 06/30/20 Carotid art dz. 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 She does not recall the date of her stroke Gen weakness and limited ambulation Poor memory GERD/PUD Plan: * S/P cardiac cath with successful intervention * Continue dual antiplatelet tx * Reduce warfarin because of supra-therapeutic INR * Change Lasix to oral * C/O epigastric discomfort this morning, h/o GERD - start PPI * Monitor labs * Ok to d/c from cardiac standpoint. Cntinue current regimen. F/u at our office in one week ANDREINA LEAHY MD FACP FAC CCDS Jun 30, 2020 13:21
--- NOTE | 2020-06-30 14:15 | Physical Therapy Daily Note ---
PT Daily Note-Current Subjective Patient agrees to PT. Just complete with OT. Mental Status Patient Orientation: Normal For Age Attachments: Oxygen Transfers SCALE: Activities may be completed with or without assistive devices. 7-Ulwbrqqcks-tebihaz completes the activity by him/herself with no assistance from a helper. 5-Set-up or Clean-up Assistance-helper sets up or cleans up; patient completes activity. [place] assists only prior to or following the activity. 4-Supervision or Touching Assistance-helper provides verbal cues and/or touching/steadying and/or contact guard assistance as patient completes activity. Assistance may be provided throughout the activity or intermittently. 3-Partial/Moderate Assistance-helper does LESS THAN HALF the effort. [place] lifts, holds or supports trunk or limbs, but provides less than half the effort. 2-Substantial/Maximal Assistance-helper does MORE THAN HALF the effort. [place] lifts or holds trunk or limbs and provides more than half the effort. 7-Grbhklhxz-sqxqpz does ALL the effort. Patient does none of the effort to complete the activity. Or, the assistance of 2 or more helpers is required for the patient to complete the activity. If activity was not attempted, code reason: 7-Patient Refused. 9-Not Applicable-not attempted and the patient did not perform the activity before the current illness, exacerbation or injury. 10-Not Attempted due to Environmental Limitations-(lack of equipment, weather restraints, etc.). 88-Not Attempted due to Medical Conditions or Safety Concerns. Roll Left & Right (QC): 6 Sit to Lying (QC): 6 Lying to Sitting/Side of Bed(Q: 6 Sit to Stand (QC): 6 Weight Bearing Right Lower Extremity: Right Weight Bearing/Tolerated Left Lower Extremity: Left Weight Bearing/Tolerated Gait Training Does the Patient Walk?: Yes Distance: 75' Walk 10 feet (QC): 6 Walk 50 ft with 2 Turns(QC): 6 Gait Assistive Device: None safe and functional/in room only/patient reports she is up independently in room Assessment Patient ceased treatment due to fatigue. PT to increase activity as tolerated by patient. PT Utility Technician Goals Custodial Goals PT Custodial Goals Time Frame: Jul 11, 2020 Roll Left & Right (QC): 6 Sit to Lying (QC): 6 Lying-Sitting on Side/Bed(QC): 6 Sit to Stand (QC): 6 Chair/Quw-we-Sighs Xfer(QC): 6 Toilet Transfer (QC): 6 Does the Patient Walk: Yes Walk 10 feet (QC): 6 Walk 50ft with 2 Turns (QC): 6 Walk 150 ft (QC): 6 1 Step (curb) (QC): 6 PT Plan Treatment/Plan Treatment Plan: Continue Plan of Care Treatment Plan: Bed Mobility, Education, Functional Activity Tawanna, Functional Strength, Gait, Safety, Therapeutic Exercise, Transfers Treatment Duration: Jul 11, 2020 Frequency: 6 times per week Estimated Hrs Per Day: .25 hour per day Patient and/or Family Agrees t: Yes Time/GCodes Time In: 1355 Time Out: 1406 Total Billed Treatment Time: 11 Total Billed Treatment 1 visit FA 11 min LESLEY MURRAY PT Jun 30, 2020 14:15
--- NOTE | 2020-06-30 14:22 | Occupational Ther Daily Note ---
OT Current Status-Daily Note Subjective Pt alert, lying in bed. Pt agrees to therapy. No c/o pain. Mental Status/Objective Patient Orientation: Person, Place, Time, Situation Attachments: IV, Oxygen (0.5L) ADL-Treatment Pt able to go from supine to EOB, independently. Independent transferring from EOB to BSC independently. Completed toileting and clothing manipulation, independently. PT took over care. All needs met in room.. Therapy Code Descriptions/Definitions Functional [place] Measure: 0=Not Assessed/NA 4=Minimal Assistance 1=Total Assistance 5=Supervision or Setup 2=Maximal Assistance 6=Modified [place] 3=Moderate Assistance 7=Complete IndependenceSCALE: Activities may be completed with or without assistive devices. 9-Emdtkenlxn-ezsngwm completes the activity by him/herself with no assistance from a helper. 5-Set-up or Clean-up Assistance-helper sets up or cleans up; patient completes activity. [place] assists only prior to or following the activity. 4-Supervision or Touching Assistance-helper provides verbal cues and/or touch ing/steadying and/or contact guard assistance as patient completes activity. Assistance may be provided throughout the activity or intermittently. 3-Partial/Moderate Assistance-helper does LESS THAN HALF the effort. [place] lifts, holds or supports trunk or limbs, but provides less than half the effort. 2-Substantial/Maximal Assistance-helper does MORE THAN HALF the effort. [place] lifts or holds trunk or limbs and provides more than half the effort. 7-Uvyjoyaef-msdkmz does ALL the effort. Patient does none of the effort to complete the activity. Or, the assistance of 2 or more helpers is required for the patient to complete the activity. If activity was not attempted, code reason: 7-Patient Refused. 9-Not Applicable-not attempted and the patient did not perform the activity before the current illness, exacerbation or injury. 10-Not Attempted due to Environmental Limitations-(lack of equipment, weather restraints, etc.). 88-Not Attempted due to Medical Conditions or Safety Concerns. Toileting Hygiene (QC): 6 Toilet Transfer (QC): 6 OT Mcfp Goals Mcfp Goals Time Frame: Jul 13, 2020 Eating (QC): 6 Oral Hygiene (QC): 6 Toileting Hygiene (QC): 6 Shower/Bathe Self (QC): 4 Upper Body Dressing (QC): 5 Lower Body Dressing (QC): 4 On/Off Footwear (QC): 4 Additional Goals: 1-Demonstrate ADL Tasks, 2-Verbalize Understanding, 3- ImproveStrength/Tawanna 1=Demonstrate adherence to instructed precautions during ADL tasks. 2=Patient will verbalize/demonstrate understanding of assistive devices/modif ications for ADL. 3=Patient will improve strength/tolerance for activity to enable patient to perform ADL's. OT Education/Plan Problem List/Assessment Assessment: Decreased Activ Tolerance Discharge Recommendations Plan/Recommendations: Continue POC Treatment Plan/Plan of Care Patient would benefit from OT for education, treatment and training to promote independence in ADL's, mobility, safety and/or upper extremity function for ADL's. Plan of Care: ADL Retraining, Functional Mobility, UE Funct Exercise/Act Treatment Duration: Jul 13, 2020 Frequency: 5 times per week Estimated Hrs Per Day: .25 hour per day Agreement: Yes 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: Good Time/GCodes Start Time: 13:40 Stop Time: 13:55 Total Time Billed (hr/min): 15 Billed Treatment Time 1 visit-ADL 1 (15 min) BRIANNA CHACON Jun 30, 2020 14:22
[2020-06-30 15:42] VITALS: BP 131/59
[2020-06-30] MEDS ORDERED: WRF1T PO ×2 (17:08)
[2020-06-30] MEDS ORDERED: CARV25TA PO (17:08)
[2020-06-30] MEDS ORDERED: PANT40TA52 PO (17:08)
[2020-06-30] MEDS ORDERED: ASPI-1238 PO (17:08)
[2020-06-30] MEDS ORDERED: POLY119P5 PO (17:08)
--- NOTE | 2020-06-30 17:10 | NUR ---
SPOKE WITH THE PT (I CALLED HER ROOM PHONE) AND WENT THRU THE EXT MED HISTORY TO COMPLETE THE MED REC LISINOPRIL: 10MG WAS MOST RECENTLY FILLED HOWEVER PT DOESNT KNOW WHY AND STATES SHE IS STILL TAKING THE 20MG (THIS IS A RECENT FILL) OTC MEDS: VIT B12 TYLENOL CALCIUM CARB VIT D3
[2020-06-30] MEDS: warFARin 1 MG (COUMADIN) TAB PO SCH (18:01)
[2020-06-30 19:34] VITALS: BP 125/60
[2020-06-30] MEDS: ACETAMINOPHEN 325 MG TABLET PO PRN (21:26)
--- NOTE | 2020-06-30 22:20 | NUR ---
PT'S COVID PCR RESULTED NEGATIVE. DR ANAND NOTIFIED- ORDER RECEIVED TO REMOVE PT FROM ISOLATION AT THIS TIME.
[2020-07-01 00:33] VITALS: BP 122/58
[2020-07-01 04:22] VITALS: BP 114/62
[2020-07-01 06:11] LABS: BASOPHILS % (AUTO) 1 % (0-10); EOSINOPHILS # (AUTO) 0.2 10^3/uL (0.0-0.3); EOSINOPHILS % (AUTO) 4 % (0-10); HEMATOCRIT 33 % (35-52); HEMOGLOBIN 10.3 g/dL (11.5-16.0); LYMPHOCYTES # (AUTO) 1.4 10^3/uL (1.0-4.0); LYMPHOCYTES % (AUTO) 24 % (12-44); MEAN CORPUSCULAR HEMOGLOBIN 27 pg (25-34); MEAN CORPUSCULAR HGB CONC 31 g/dL (32-36); MEAN CORPUSCULAR VOLUME 86 fL (80-99); MEAN PLATELET VOLUME 9.8 fL (9.0-12.2); MONOCYTES # (AUTO) 0.6 10^3/uL (0.0-1.0); MONOCYTES % (AUTO) 9 % (0-12); NEUTROPHILS # (AUTO) 3.7 10^3/uL (1.8-7.8); NEUTROPHILS % (AUTO) 62 % (42-75); PLATELET COUNT 228 10^3/uL (130-400); WHITE BLOOD COUNT 5.9 10^3/uL (4.3-11.0)
[2020-07-01 06:31] LABS: ALBUMIN 3.4 GM/DL (3.2-4.5); CHLORIDE 103 MMOL/L (98-107); POTASSIUM 4.1 MMOL/L (3.6-5.0); SODIUM 140 MMOL/L (135-145)
[2020-07-01 06:32] LABS: CALCIUM 9.2 MG/DL (8.5-10.1)
[2020-07-01 06:33] LABS: GLUCOSE 108 MG/DL (70-105); TOTAL PROTEIN 6.1 GM/DL (6.4-8.2)
[2020-07-01 06:35] LABS: BILIRUBIN,TOTAL 0.8 MG/DL (0.1-1.0); CARBON DIOXIDE 28 MMOL/L (21-32)
[2020-07-01 06:37] LABS: ALKALINE PHOSPHATASE 85 U/L (40-136); CREATININE SERUM 0.78 MG/DL (0.60-1.30); GFR ESTIMATED > 60
[2020-07-01 06:38] LABS: BUN/CREATININE RATIO 12
[2020-07-01 06:40] LABS: ALANINE AMINOTRANSFERASE 7 U/L (0-55)
[2020-07-01 08:00] VITALS: BP 130/75
[2020-07-01] MEDS: CARVEDILOL 12.5 MG (COREG) TABLET PO SCH (08:27)
[2020-07-01] MEDS: ASPIRIN E.C. 81 MG (ECOTRIN) TAB PO SCH (08:27)
[2020-07-01] MEDS: lisINopril 10 MG (PRINIVIL) TABLET PO SCH (08:27)
[2020-07-01] MEDS: CLOPIDOGREL 75 MG (PLAVIX) TABLET PO SCH (08:27)
--- NOTE | 2020-07-01 08:53 | Cardiology Progress Note ---
Subjective Date Seen by Provider: Jul 01, 2020 Time Seen by Provider: 08:55 Subjective/Events-last exam Patient is sitting up in bed, complaining of fatigue, denies any chest pain or dyspnea. Review of Systems General: No Chills, No Night Sweats; Fatigue, Malaise; No Appetite, No Other HEENT: No Head Aches, No Visual Changes, No Eye Pain, No Ear Pain, No Dysphasia, No Sinus Congestion, No Post Nasal Drip, No Sore Throat, No Other Pulmonary: Dyspnea; No Cough, No Pleuritic Chest Pain, No Other Cardiovascular: No: Chest Pain, Palpitations, Orthopnea, Paroxysmal Noc. Dyspnea, Edema, Lt Headedness, Other Objective-Cardiology Exam Last Set of Vital Signs Vital Signs 07/01/20 08:00 Temp 36.8 Pulse 71 Resp 20 B/P (MAP) 130/75 (93) Pulse Ox 98 O2 Delivery Nasal Cannula O2 Flow Rate 2.00 Capillary Refill : Less Than 3 SecondsLess Than 3 Seconds I&O Intake and Output 07/01/20 00:00 Intake Total 1485 ml Balance 1485 ml Intake Oral 1485 ml # Voids 11 # Bowel Movements 2 General: Alert, Oriented X3, Cooperative HEENT: Atraumatic, PERRLA Neck: Supple, No JVD, No Thyromegaly Lungs: Clear to Auscultation, Normal Air Movement Heart: Regular Rate, Normal S1, Normal S2, No Murmurs Abdomen: Normal Bowel Sounds, Soft, No Tenderness, No Hepatosplenomegaly, No Masses Extremities: No Clubbing, No Cyanosis, No Edema, Normal Pulses, No Tenderness/Swelling Skin: No Rashes, No Breakdown, No Significant Lesion Neuro: Normal Gait, Normal Speech, Strength at 5/5 X4 Ext, Normal Tone, Sensation Intact Psych/Mental Status: Mental Status NL, Mood NL Results Lab Laboratory Tests 07/01/20 05:55 A/P-Cardiology Admission Diagnosis Acute on Chronic CHF NSTEMI CAD Chronic afib Assessment/Plan Acute, decompensated, systolic and diastolic ischemic cardiomyopathy - LVEF 40% per cardiac cath of Jun 28, 2020. 2D Echo done Oct 2019 revealed EF 40-45%. Clinically improved. Maintained on Lisinopril and Coreg Ac NSTEMI, underwent balloon angioplasty on June 28, [address] Valenzuela, recovering well CAD. Card cath of Jun 28, 2020: The left circumflex artery had a near total occlusion that was reduced to less than 50% with balloon angioplasty. The left anterior descending artery is known to have Synergy 3.5 x 28 and 3.0 x 16 mm stents that were exhibiting 90% stenosis. This was reduced to less than 50% with balloon angioplasty. The right coronary artery is known to have Synergy 4.0 x 38 and 3.5 x 38 stents that are patent. All vessels have diffused moderate disease. Ischemic cardiomyopathy with apical akinesis to dyskinesis and left ventricular ejection fraction approximately 40%. Elevated left ventric ular end-diastolic pressure. Chronic A Fib, maintained on Coumadin, INR 3.5 yesterday, I will reevaluate INR S/p Medtronic dual chamber pacemaker in 2017 at ([facility] - Dr Pierce). Functioning normally per interrogation of February 15, 2020 Carotid artery stenosis. 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 She does not recall the date of her stroke Gen weakness and limited ambulation Poor memory Patient was seen and evaluated with Susan, examination performed, management plan was discussed, agree with the current scribed note, I made few changes to the note using Italic font Patient was seen and evaluated, complaining of fatigue and loss of energy Denied any chest pain, still having shortness of breath on exertion Okay for discharge from cardiology standpoint Clinical Quality Measures DVT/VTE Risk/Contraindication: Risk Factor Score Per Nursin RFS Level Per Nursing on Admit: 2=Moderate SUSAN LOVE Jul 01, 2020 08:53 MACARIO CARO MD Jul 01, 2020 10:12
[2020-07-01] MEDS ORDERED: FUROSEMIDE 40 MG (LASIX) TAB PO SCH (09:00)
[2020-07-01] MEDS ORDERED: PANTOPRAZOLE 40 MG (PROTONIX) TAB PO SCH (09:00)
[2020-07-01 09:41] LABS: INR 2.3 (0.8-1.4); PROTHROMBIN TIME PATIENT 25.8 SEC (12.2-14.7)
[2020-07-01] MEDS ORDERED: CARV12.53 PO (11:04)
[2020-07-01] MEDS ORDERED: NITR0.4T42 SL (11:04)
--- NOTE | 2020-07-01 11:05 | D/C HH Face to Face Order ---
D/C Face to Face Orders Reconcile Patient Problems Problems Reviewed?: Yes Instructions for Patient Home Health Patient Instructions/FollowUp: [facility] 1 week Physician to follow Patient: [facility] Discharge Diet for Home: Cardiac Diet Patient Problems: CHF CAD Patient Data-Allergies,Ht & Wt Patient Allergies: Coded Allergies: Penicillins (Unverified Allergy, Unknown, 11/17/19) Home Health Need/Face to Face Date of Face to Face: Jul 01, 2020 Clinical Findings: Generalized weakness and fatigue, Instability, Muscle weakness, Shortness of breath, Unsteady gait I have seen Pt [id number]: Yes Discharged To: Home Diagnosis/Conditions: CHF CAD Patient is Homebound due to: Radha fall risk due to instabilty, Muscle weakness, Shortness of breath/distress Homebound Status Due to the above stated illness, injury or surgical procedure (medical condition or diagnosis) and associated clinical findings, the patient is homebound because of his/her inability to leave home except with aid of a supportive device and/or person AND leaving the home requires a considerable and taxing effort or is medically contraindicated. Pt req the following assistanc: Walker Home Health Nursing Orders Home Health Services Order: Nursing Services, Skip Load Driver-Evaluate & Treat, Physical Therapy-Evaluate & Treat Home Health Infusion Therapy Line Start Date: Jun 28, 2020 Certify Stmt I certify that this patient is under my care and that I, a nurse practitioner or a physician; a clerical assistant working with me, had a face to face encounter that - meets the physician face to face encounter requirements with this patient as dated. SIXTO ANAND DO Jul 01, 2020 11:05
--- NOTE | 2020-07-01 11:06 | Discharge Summary ---
Discharge Summary Hospital Course Was the Problem List Reviewed?: Yes Problems/Dx: (1) NSTEMI (non-ST elevated myocardial infarction) (2) Acute on chronic heart failure Status: Acute Qualifiers: Qualified Codes: I50.9 - Heart failure, unspecified (3) Atrial fibrillation (4) CAD (coronary artery disease) (5) History of right common carotid artery stent placement (6) Anticoagulated on Coumadin (7) Elevated brain natriuretic peptide (BNP) level (8) Pacemaker (9) PVD (peripheral vascular disease) (10) Stented coronary artery Hospital Course Date of Admission: Jun 28, 2020 at 06:56 Admission Diagnosis : Family Physician/Provider: Greg Vargas MD Date of Discharge: 07/01/20 Discharge Diagnosis: Assessment: NSTEMI Hypoxia on home on O2 at home since 06/26/20 CVA 2016 AF OAC CHF Plan: Dr Valenzuela consult O2 AF on OAC 06/29/20: Transfer to 4th floor status Physical therapy & occupational therapy Cardiac cath reviewed 06/30/20: Monitor chest pain Monitor shortness of breath Maintain potassium supplement Await COVID swab Hospital Course: Hospital Course: Pt had a lengthy hospital course after she was admitted for angina. She was placed in the ICU, monitored and managed the CHF. She underwent cardiac catheterization by cardiology revealing coronary stenosis requiring stent deployment an intervention. Overall she did well, she was maintained on her regular home oxygen that she has at home. Home health was arranged. She did have exposure to Covid. Her swab was negative so she was discharged in improved and stable condition to home. Labs and Pending Lab Test: Laboratory Tests 07/01/20 05:55: White Blood Count 5.9, Red Blood Count 3.84, Hemoglobin 10.3L, Hematocrit 33L, Mean Corpuscular Volume 86, Mean Corpuscular Hemoglobin 27, Mean Corpuscular Hemoglobin Concent 31L, Red Cell Distribution Width 16.9H, Platelet Count 228, Mean Platelet Volume 9.8, Immature Granulocyte % (Auto) 0, Neutrophils (%) (Auto) 62, Lymphocytes (%) (Auto) 24, Monocytes (%) (Auto) 9, Eosinophils (%) (Auto) 4, Basophils (%) (Auto) 1, Neutrophils # (Auto) 3.7, Lymphocytes # (Auto) 1.4, Monocytes # (Auto) 0.6, Eosinophils # (Auto) 0.2, Basophils # (Auto) 0.0, Immature Granulocyte # (Auto) 0.0, Sodium Level 140, Potassium Level 4.1, Chloride Level 103, Carbon Dioxide Level 28, Anion Gap 9, Blood Urea Nitrogen 9, Creatinine 0.78, Estimat Glomerular Filtration Rate > 60, BUN/Creatinine Ratio 12, Glucose Level 108H, Calcium Level 9.2, Corrected Calcium 9.7, Total Bilirubin 0.8, Aspartate Amino Transf (AST/SGOT) 13, Alanine Aminotransferase (ALT/SGPT) 7, Alkaline Phosphatase 85, Total Protein 6.1L, Albumin 3.4 07/01/20 05:56: Prothrombin Time 25.8H, INR Comment 2.3H Microbiology 06/28/20 MRSA Screen - Final, Complete MRSA not isolated Home Meds Active Carvedilol 12.5 Mg Tablet 12.5 Mg PO BID WITH MEALS Nitroglycerin 0.4 Mg Tab.subl 0 Mg SL UD PRN Reported Miralax (Polyethylene Glycol 3350) 119 Gm Powder 17 Gm PO DAILY PRN Aspirin EC (Aspirin) 81 Mg Tablet.dr 81 Mg PO DAILY Pantoprazole Sodium 40 Mg Tablet.dr 40 Mg PO DAILY Carvedilol 25 Mg Tablet 25 Mg PO BID Warfarin Sodium 1 Mg Tablet 1.5 Mg PO ,,MON,MON,SAT TAKES AT BEDTIME 1.5MG PO ON MON,,, MON AND SAT 1MG ON MON,MON Warfarin Sodium 1 Mg Tablet 1 Mg PO MON,MON TAKES AT BEDTIME 1.5MG PO ON MON,,, MON AND SAT 1MG ON MON,MON Vitamin D3 (Cholecalciferol (Vitamin D3)) 50 Mcg Capsule 50 Mcg PO DAILY Tolterodine Tartrate ER (Tolterodine Tartrate) 4 Mg Cap.er.24h 4 Mg PO DAILY Tramadol HCl 50 Mg Tablet 50 Mg PO Q6H PRN Calcium Carbonate 600 Mg Tablet 600 Mg PO Q48H Lisinopril 20 Mg Tablet 20 Mg PO DAILY Cartia Xt (Diltiazem HCl) 180 Mg Cap.er.24h 180 Mg PO DAILY Vitamin B-12 (Cyanocobalamin) 100 Mcg Tablet 1,000 Mcg PO DAILY Plavix (Clopidogrel Bisulfate) 75 Mg Tablet 75 Mg PO DAILY Lipitor (Atorvastatin Calcium) 40 Mg Tablet 40 Mg PO DAILY Acetaminophen 325 Mg Tablet 650 Mg PO Q6H PRN Assessment/Pt Instructions [facility] 1 week Discharge Planning: <30 minutes discharge planning Discharge Instructions Activity as Tolerated: Yes Discharge Physical Examination Vital Signs Vital Signs Date Time Temp Pulse Resp B/P (MAP) Pulse Ox O2 Delivery O2 Flow Rate FiO2 07/01/20 08:00 Nasal Cannula 2.00 07/01/20 08:00 36.8 71 20 130/75 (93) 98 General Appearance: No Apparent Distress, WD/WN, Chronically ill Respiratory: Normal Breath Sounds Cardiovascular: Regular Rate, Rhythm Neurologic/Psychiatric: Alert, Oriented x3 Allergies: Coded Allergies: Penicillins (Unverified Allergy, Unknown, 11/17/19) Discharge Summary Date of Admission Jun 28, 2020 at 06:56 Date of Discharge Discharge Date: Jul 01, 2020 Admission Diagnosis Assessment: NSTEMI Hypoxia on home on O2 at home since 06/26/20 CVA 2015 AF OAC CHF Plan: Dr Valenzuela consult O2 AF on OAC Discharge Diagnosis Assessment: NSTEMI Hypoxia on home on O2 at home since 06/26/20 CVA 2015 AF OAC CHF Plan: Dr Valenzuela consult O2 AF on OAC 06/29/20: Transfer to 4th floor status Physical therapy & occupational therapy Cardiac cath reviewed 06/30/20: Monitor chest pain Monitor shortness of breath Maintain potassium supplement Await COVID swab (1) NSTEMI (non-ST elevated myocardial infarction) (2) Acute on chronic heart failure Status: Acute Qualifiers: Qualified Codes: I50.9 - Heart failure, unspecified (3) Atrial fibrillation (4) CAD (coronary artery disease) (5) History of right common carotid artery stent placement (6) Anticoagulated on Coumadin (7) Elevated brain natriuretic peptide (BNP) level (8) Pacemaker (9) PVD (peripheral vascular disease) (10) Stented coronary artery Clinical Quality Measures DVT/VTE Risk/Contraindication: Risk Factor Score Per Nursin RFS Level Per Nursing on Admit: 2=Moderate SIXTO ANAND DO Jul 01, 2020 11:06
--- NOTE | 2020-07-01 11:27 | Physical Therapy Daily Note ---
PT Daily Note-Current Subjective "I went to the BR by myself!" Pt proudly says she is doing better. Pt agreeable to ambulation in the room. Mental Status Patient Orientation: Person, Place, Situation Transfers SCALE: Activities may be completed with or without assistive devices. 0-Ldbkiyenna-rrxthgd completes the activity by him/herself with no assistance from a helper. 5-Set-up or Clean-up Assistance-helper sets up or cleans up; patient completes activity. Noonan assists only prior to or following the activity. 4-Supervision or Touching Assistance-helper provides verbal cues and/or touching/steadying and/or contact guard assistance as patient completes activity. Assistance may be provided throughout the activity or intermittently. 3-Partial/Moderate Assistance-helper does LESS THAN HALF the effort. Noonan lifts, holds or supports trunk or limbs, but provides less than half the effort. 2-Substantial/Maximal Assistance-helper does MORE THAN HALF the effort. Noonan lifts or holds trunk or limbs and provides more than half the effort. 4-Aiambvnrw-nzprvu does ALL the effort. Patient does none of the effort to complete the activity. Or, the assistance of 2 or more helpers is required for the patient to complete the activity. If activity was not attempted, code reason: 7-Patient Refused. 9-Not Applicable-not attempted and the patient did not perform the activity before the current illness, exacerbation or injury. 10-Not Attempted due to Environmental Limitations-(lack of equipment, weather restraints, etc.). 88-Not Attempted due to Medical Conditions or Safety Concerns. Weight Bearing Right Lower Extremity: Right Weight Bearing/Tolerated Left Lower Extremity: Left Weight Bearing/Tolerated Treatments Pt bed mobility and transfers mod (I). Portable O2 at 2L/min. Pt used BR with SBA. Pt amb in room with O2 x 50ft, CGA and no AD. Pt resting in recliner with legs elevated and all needs met post therapy. Assessment Current Status: Good Progress Pt amber above well. Pt resting in recliner with call light and all needs met. PT Policy Issue Clerk Goals Policy Issue Clerk Goals PT Halfway Goals Time Frame: Jul 11, 2020 Roll Left & Right (QC): 6 Sit to Lying (QC): 6 Lying-Sitting on Side/Bed(QC): 6 Sit to Stand (QC): 6 Chair/Yeb-mb-Qywwi Xfer(QC): 6 Toilet Transfer (QC): 6 Does the Patient Walk: Yes Walk 10 feet (QC): 6 Walk 50ft with 2 Turns (QC): 6 Walk 150 ft (QC): 6 1 Step (curb) (QC): 6 PT Plan Treatment/Plan Treatment Plan: Continue Plan of Care Treatment Plan: Bed Mobility, Education, Functional Activity Tawanna, Functional Strength, Gait, Safety, Therapeutic Exercise, Transfers Treatment Duration: Jul 11, 2020 Frequency: 6 times per week Estimated Hrs Per Day: .25 hour per day Patient and/or Family Agrees t: Yes Time/GCodes Time In: 1015 Time Out: 1045 Total Billed Treatment Time: 30 Total Billed Treatment 1, gait 20', FA 10' GEE KRUSE CPTA Jul 01, 2020 11:27
--- NOTE | 2020-07-01 11:55 | NUR ---
CM/SS: Visited with pt as to plan for discharge and need for services after discharge Plan: Pt will return home with [facility] at time of discharge Summary: Pt reports she is feeling better and that she would like to go home. Pt reports that she has not had home care in the past, however she is open to it when she discharges the hospital. She would like to use the home care associated with the hospital. Pt reports that she does have a ride from the hospital. Pt reports that he is going to [place] to see his Cancer doctor on tomorrow. He has been diagnosed and will see doctor. This is a recent diagnosis for him. Pt is educated on home care and that physical therapy can work with her to get stronger. Pt feels ok about that. Referral made to [facility] - talked with Marlene and sent an email to Moreno Ballard. This worker will follow up.
--- NOTE | 2020-07-01 13:04 | Occupational Ther Daily Note ---
OT Current Status-Daily Note Subjective Pt alert, sitting in recliner. Pt agrees to therapy. No c/o pain. Pt states that she is supposed to discharge today. Mental Status/Objective Patient Orientation: Person, Place, Time, Situation Attachments: IV, Oxygen (1L) ADL-Treatment Pt agrees to shower. Pt ambulated to bathroom without AD and transfers to toilet with SBA. Completes hygiene and clothing manipulation with SBA. Pt states that she has grabbars around toilet and shower chair in walk-in shower. Pt completes shower with SBA using shower bench, grabbars and hand held shower. Pt completes dressing after set up, upper body by self then lower body SBA while standing to hike over hips. Pt then ambulated back to room and sat in recliner after session. Nrsg took over care of pt. All needs met. Therapy Code Descriptions/Definitions Functional [place] Measure: 0=Not Assessed/NA 4=Minimal Assistance 1=Total Assistance 5=Supervision or Setup 2=Maximal Assistance 6=Modified [place] 3=Moderate Assistance 7=Complete IndependenceSCALE: Activities may be completed with or without assistive devices. 9-Zyprblpzjn-rcsglef completes the activity by him/herself with no assistance from a helper. 5-Set-up or Clean-up Assistance-helper sets up or cleans up; patient completes activity. Russell assists only prior to or following the activity. 4-Supervision or Touching Assistance-helper provides verbal cues and/or touching/steadying and/or contact guard assistance as patient completes activity. Assistance may be provided throughout the activity or intermittently. 3-Partial/Moderate Assistance-helper does LESS THAN HALF the effort. Russell lifts, holds or supports trunk or limbs, but provides less than half the effort. 2-Substantial/Maximal Assistance-helper does MORE THAN HALF the effort. Russell lifts or holds trunk or limbs and provides more than half the effort. 9-Ilotdjcxx-pvrjzl does ALL the effort. Patient does none of the effort to complete the activity. Or, the assistance of 2 or more helpers is required for the patient to complete the activity. If activity was not attempted, code reason: 7-Patient Refused. 9-Not Applicable-not attempted and the patient did not perform the activity before the current illness, exacerbation or injury. 10-Not Attempted due to Environmental Limitations-(lack of equipment, weather restraints, etc.). 88-Not Attempted due to Medical Conditions or Safety Concerns. 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 2=Patient will verbalize/demonstrate understanding of assistive devices/modifications for ADL. 3=Patient will improve strength/tolerance for activity to enable patient to perform ADL's. OT Education/Plan Discharge Recommendations Plan/Recommendations: Continue POC Treatment Plan/Plan of Care Patient would benefit from OT for education, treatment and training to promote independence in ADL's, mobility, safety and/or upper extremity function for ADL's. Plan of Care: ADL Retraining, Functional Mobility, UE Funct Exercise/Act Treatment Duration: Jul 13, 2020 Frequency: 5 times per week Estimated Hrs Per Day: .25 hour per day Agreement: Yes 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: Good Time/GCodes Start Time: 10:52 Stop Time: 11:30 Total Time Billed (hr/min): 38 Billed Treatment Time 1 visit-ADL 3 (38 min) BRIANNA CHACON Jul 01, 2020 13:04
[2020-07-01 14:24] VITALS: BP 130/75
== END 2020-07-01 14:26 | disposition home health service (06) | DRG 250 ==
LOC: EDUNIT# 04:43 → ER 04:45 → ICU 06:56 → 4TH 06-29 16:17
PROVIDERS: ADMIT Internal Medicine; ATTEND Internal Medicine
PROC: 02713ZZ Dilation of Coronary Artery, Two Arteries, Percutaneous Approach (ICD-10-PCS; principal; 2020-06-28)
PROC: 4A023N7 Measurement of Cardiac Sampling and Pressure, Left Heart, Percutaneous Approach (ICD-10-PCS; 2020-06-28)
PROC: B2111ZZ Fluoroscopy of Multiple Coronary Arteries using Low Osmolar Contrast (ICD-10-PCS; 2020-06-28)
PROC: B2151ZZ Fluoroscopy of Left Heart using Low Osmolar Contrast (ICD-10-PCS; 2020-06-28)
DX: I21.4 Non-ST elevation (NSTEMI) myocardial infarction (principal); I50.41 Acute combined systolic (congestive) and diastolic (congestive) heart failure; T82.855A Stenosis of coronary artery stent, initial encounter; I48.20 Chronic atrial fibrillation, unspecified; I11.0 Hypertensive heart disease with heart failure; I25.10 Atherosclerotic heart disease of native coronary artery without angina pectoris; I25.5 Ischemic cardiomyopathy; I77.1 Stricture of artery; I08.1 Rheumatic disorders of both mitral and tricuspid valves; R53.1 Weakness; R41.3 Other amnesia; R09.02 Hypoxemia; G47.30 Sleep apnea, unspecified; M19.91 Primary osteoarthritis, unspecified site; R06.03 Acute respiratory distress; I49.3 Ventricular premature depolarization; I25.2 Old myocardial infarction; I73.9 Peripheral vascular disease, unspecified; E87.6 Hypokalemia; F41.0 Panic disorder [episodic paroxysmal anxiety]; Z79.01 Long term (current) use of anticoagulants; Z87.01 Personal history of pneumonia (recurrent); Z95.0 Presence of cardiac pacemaker; Z95.5 Presence of coronary angioplasty implant and graft; Z86.73 Personal history of transient ischemic attack (TIA), and cerebral infarction without residual deficits
CPT/HCPCS: 36415; 51702; 71045; 80048; 80053; 80061; 82805; 82962; 83735; 83874; 83880; 84443; 84484; 85025; 85027; 85610; 85730; 87081; 87635; 93005; 93041; 93458; 96374; 99291

== ENCOUNTER 2020-07-08 11:42 | Emergency (ER) | payer MEDICARE ==
[~2020-07-08] VITALS: Ht 165.1 cm; Wt 69.0 kg
[~2020-07-08 11:42] MED LIST changes: +ASPI-1238 PO; +CARV12.53 PO; +CARV25TA PO; +PANT40TA52 PO; +POLY119P5 PO
[2020-07-08] MEDS ORDERED: LACTATED RINGERS 1,000 ML IV ONE (11:50)
--- NOTE | 2020-07-08 11:55 | ED Abdominal Pain ---
General Stated Complaint: RECTAL BLEEDING Source of Information: Patient Exam Limitations: No Limitations History of Present Illness Date Seen by Provider: Jul 08, 2020 Time Seen by Provider: 11:39 Initial Comments Patient presents from [place] [facility] by EMS with chief complaint of generalized abdominal discomfort associated with constipation. She went to [place] [facility] because she been using Senokot and stool softeners without success. They prescribed her MiraLAX. She used that and it was working fine and she was having stools however they were hard until today when she cannot pass anything but some hard balls. She also noticed some blood on wiping. EMS said they did not see any blood around. She does have a history of hemorrhoids. She has a history of chronic constipation and has had to be fecal digitally disimpacted in the past. The patient has a history of using tramadol, warfarin, aspirin and Plavix with a history of atrial fibrillation. He follows with Dr. Valenzuela and Dr. elam. No nausea fever chills cough shortness of air. Allergies and Home Medications Allergies Coded Allergies: Penicillins (Unverified Allergy, Unknown, 11/17/19) Home Medications Acetaminophen 325 Mg Tablet, 650 MG PO Q6H PRN for PAIN-MILD (1-4), (Reported) Aspirin 81 Mg Tablet.dr, 81 MG PO DAILY, (Reported) Atorvastatin Calcium 40 Mg Tablet, 40 MG PO DAILY, (Reported) Calcium Carbonate 600 Mg Tablet, 600 MG PO Q48H, (Reported) Carvedilol 12.5 Mg Tablet, 12.5 MG PO BID WITH MEALS Prescribed by: SIXTO ANAND on 07/01/201103 Cholecalciferol (Vitamin D3) 50 Mcg Capsule, 50 MCG PO DAILY, (Reported) Clopidogrel Bisulfate 75 Mg Tablet, 75 MG PO DAILY, (Reported) Cyanocobalamin 100 Mcg Tablet, 1,000 MCG PO DAILY, (Reported) Diltiazem HCl 180 Mg Cap.er.24h, 180 MG PO DAILY, (Reported) Lisinopril 20 Mg Tablet, 20 MG PO DAILY, (Reported) Nitroglycerin 0.4 Mg Tab.subl, 0 MG SL UD PRN for CHEST PAIN (ANGINA) Prescribed by: SIXTO ANAND on 07/01/20 110 Pantoprazole Sodium 40 Mg Tablet.dr, 40 MG PO DAILY, (Reported) Polyethylene Glycol 3350 119 Gm Powder, 17 GM PO DAILY PRN for CONSTIPATION-2ND LINE, (Reported) Tolterodine Tartrate 4 Mg Cap.er.24h, 4 MG PO DAILY, (Reported) Tramadol HCl 50 Mg Tablet, 50 MG PO Q6H PRN for PAIN-MODERATE (5-7), (Reported) Warfarin Sodium 1 Mg Tablet, 1 MG PO , (Reported) TAKES AT BEDTIME 1.5MG PO ON MON,,, MON AND SAT 1MG ON Warfarin Sodium 1 Mg Tablet, 1.5 MG PO ,,MON,MON,SAT, (Reported) TAKES AT BEDTIME 1.5MG PO ON MON,,, MON AND SAT 1MG ON Patient Home Medication List Home Medication List Reviewed: Yes Review of Systems Review of Systems Constitutional: No chills, No diaphoresis, No fever EENTM: No Blurred Vision, No Double Vision Respiratory: Denies Cough, Denies Shortness of Air Cardiovascular: Denies Chest Pain, Denies Edema Gastrointestinal: See HPI, Abdominal Pain, Constipated; Denies Diarrhea, Denies Nausea Genitourinary: Denies Burning, Denies Discharge Musculoskeletal: No back pain, No joint pain All Other Systems Reviewed Negative Unless Noted: Yes Past Qwojwoi-Orqmff-Jpxwlo Hx Patient Social History Alcohol Use: Denies Use Recreational Drug Use: No Smoking Status: Never a Smoker 2nd Hand Smoke Exposure: No Recent Hopitalizations: No Immunizations Up To Date Tetanus Booster (TDap): Unknown PED Vaccines UTD: Yes Date of Pneumonia Vaccine: Jun 28, 2019 Seasonal Allergies Seasonal Allergies: No Past Medical History Surgeries: Yes (SEE BELOW) Adenoidectomy, Cardiac, Coronary Stent, Pacemaker, Vascular Surgery Respiratory: Yes (CHRONIC COUGH; PNEUMONIA X1; BRONCHITIS ) Pneumonia, Sleep Apnea Cardiac: Yes (PACEMAKER 2016;CARDIAC STENTS X 4; RIGHT CAROTID STENT X 1) Atrial Fibrillation, Coronary Artery Disease, High Cholesterol, Hypertension Neurological: Yes (CVA 2016--NO RESIDUAL EFFECTS; STATES ONLY SYMPTOM WAS HEADACHE. 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 oz. kg; 29.02 BMI Method: General Appearance: WD/WN, mild distress HEENT: normal ENT inspection, pharynx normal Neck: full range of motion, normal inspection Respiratory: no respiratory distress, no accessory muscle use Cardiovascular: normal peripheral pulses, regular rate, rhythm Peripheral Pulses: 2+ Radial Pulses (R), 2+ Radial Pulses (L) Gastrointestinal: normal bowel sounds, soft, no organomegaly, tenderness (mild tenderness all 4 quadrants) Genital/Rectal: heme positive stool Extremities: normal inspection, no pedal edema, normal capillary refill Neurologic/Psychiatric: alert, normal mood/affect, oriented x 3 Skin: normal color, warm/dry Progress/Results/Core Measures Results/Orders Lab Results Laboratory Tests Test 07/08/20 11:55 Range/Units White Blood Count 9.7 4.3-11.0 10^3/uL Red Blood Count 4.43 3.80-5.11 10^6/uL Hemoglobin 12.0 11.5-16.0 g/dL Hematocrit 38 35-52 % Mean Corpuscular Volume 86 80-99 fL Mean Corpuscular Hemoglobin 27 25-34 pg Mean Corpuscular Hemoglobin Concent 31 L 32-36 g/dL Red Cell Distribution Width 17.2 H 10.0-14.5 % Platelet Count 307 130-400 10^3/uL Mean Platelet Volume 9.5 9.0-12.2 fL Immature Granulocyte % (Auto) 0 % Neutrophils (%) (Auto) 86 H 42-75 % Lymphocytes (%) (Auto) 8 L 12-44 % Monocytes (%) (Auto) 5 0-12 % Eosinophils (%) (Auto) 1 0-10 % Basophils (%) (Auto) 0 0-10 % Neutrophils # (Auto) 8.3 H 1.8-7.8 10^3/uL Lymphocytes # (Auto) 0.8 L 1.0-4.0 10^3/uL Monocytes # (Auto) 0.5 0.0-1.0 10^3/uL Eosinophils # (Auto) 0.1 0.0-0.3 10^3/uL Basophils # (Auto) 0.0 0.0-0.1 10^3/uL Immature Granulocyte # (Auto) 0.0 0.0-0.1 10^3/uL Prothrombin Time 23.3 H 12.2-14.7 SEC INR Comment 2.0 H 0.8-1.4 Activated Partial Thromboplast Time 31 24-35 SEC Sodium Level 141 135-145 MMOL/L Potassium Level 4.0 3.6-5.0 MMOL/L Chloride Level 106 98-107 MMOL/L Carbon Dioxide Level 26 21-32 MMOL/L Anion Gap 9 5-14 MMOL/L Blood Urea Nitrogen 12 7-18 MG/DL Creatinine 0.76 0.60-1.30 MG/DL Estimat Glomerular Filtration Rate > 60 BUN/Creatinine Ratio 16 Glucose Level 144 H 70-105 MG/DL Calcium Level 9.5 8.5-10.1 MG/DL Corrected Calcium 9.3 8.5-10.1 MG/DL Total Bilirubin 0.8 0.1-1.0 MG/DL Aspartate Amino Transf (AST/SGOT) 16 5-34 U/L Alanine Aminotransferase (ALT/SGPT) 11 0-55 U/L Alkaline Phosphatase 95 40-136 U/L Total Protein 7.7 6.4-8.2 GM/DL Albumin 4.2 3.2-4.5 GM/DL My Orders Orders - AVA AVILA Ed Iv/Invasive Line Start (07/08/20 11:50) Lactated Ringers (Lr 1000 Ml Iv Solution (07/08/20 11:50) Cbc With Automated Diff (07/08/20 11:50) Comprehensive Metabolic Panel (07/08/20 11:50) Occult Blood Stool (07/08/20 11:50) Protime With Inr (07/08/20 11:55) Partial Thromboplastin Time (07/08/20 11:55) Ct Abdomen/Pelvis W (07/08/20 11:55) Iohexol Injection (Omnipaque 350 Mg/Ml 1 (07/08/20 12:15) Received Contrast (Hold Metformin- Contr (07/08/20 12:15) Ns (Ivpb) (Sodium Chloride 0.9% Ivpb Bag (07/08/20 12:15) Let Solution (Let Solution) (07/08/20 13:00) Medications Given in ED Current Medications Medications Dose Ordered Sig/Natalie Route Start Time Stop Time Status Last Admin Dose Admin Iohexol 100 ml ONCE ONCE IV 07/08/20 12:15 07/08/20 12:24 DC 07/08/20 12:20 87 ML Lactated Ringer's 1,000 ml @ 0 mls/hr Q0M ONCE IV 07/08/20 11:50 07/08/20 11:53 DC 07/08/20 12:03 1,000 MLS/HR Sodium Chloride 100 ml ONCE ONCE IV 07/08/20 12:15 07/08/20 12:24 DC 07/08/20 12:20 80 ML Tetracaine/ Epinephrine/ Lidocaine 3 ml ONCE ONCE TOP 07/08/20 13:00 07/08/20 13:01 DC 07/08/20 12:52 3 ML Vital Signs/I&O 07/08/20 11:42 Temp 35.4 Pulse 86 Resp 18 B/P (MAP) 136/100 (112) O2 Delivery Room Air Progress Progress Note #1: Time: 11:43 Progress Note Red check some labs make sure she is not significantly anemic. We'll check PT/INR. We will then do a rectal exam. Suspect that she probably has bleeding hemorrhoids related to her constipation and she may need digitally disimpacted. If we have a suppository we'll give her that. She appears dry so we will give her a liter of fluids. Progress Note #2: Time: 13:05 Progress Note The patient has a prominent internal hemorrhoid at approximate 5:00. We coated it with let and then injected it with lidocaine. We lanced it and got small amount of blood clot out. We then were able to disimpact about 150 cc of formed stool from the rectum. She was cleaned and she could not tolerate anymore understandably so. We we'll have her do MiraLAX 3 times a day for 3 days and give her some Proctofoam for her pain. Sits baths. Follow-up with primary care as necessary. She's not having any significant bleeding from the hemorrhoid. Diagnostic Imaging Diagonstic Imaging: CT Plain Films/CT/US/NM/MRI: abdomen, pelvis Comments NAME: KEISHA ESPAÑA [facility] REC#: [id number] PT STATUS: REG ER : 1940 PHYSICIAN: AVA AVILA MD ADMIT DATE: 07/08/20/ER Draft Date of Exam:07/08/20 CT ABDOMEN/PELVIS W PROCEDURE: CT abdomen and pelvis with contrast. TECHNIQUE: Multiple contiguous axial images were obtained through the abdomen and pelvis after administration of intravenous contrast. Auto Exposure Controls were utilized during the CT exam to meet ALARA standards for radiation dose reduction. All CT scans use one or more of the following dose optimizing techniques: automated exposure control, MA and/or KvP adjustment based on patient size and exam type or iterative reconstruction. INDICATION: Constipation and abdominal pain. COMPARISON: No prior studies are available for comparison. FINDINGS: Imaging through the lung bases demonstrates the heart to be enlarged. There is a small right and trace left pleural effusion. No discrete liver mass is identified. Gallbladder is unremarkable. No biliary ductal dilatation is seen. The pancreas and spleen are unremarkable. No adrenal mass is detected. Kidneys are unremarkable. Aorta is nonaneurysmal. Small and large bowel loops demonstrate large amount of stool load within the rectum and portions of the sigmoid colon. There is moderate stool in the right colon and transverse colon. Small bowel loops are normal in caliber. No obstruction is seen. There is no free fluid or fluid collection. There is no free air. Unopacified bladder is unremarkable. Bony structures are nonacute. IMPRESSION: 1. Cardiomegaly. 2. Bilateral pleural effusions, right greater. 3. Moderate stool load, particularly within the rectum, consistent with constipation. 4. No other significant abnormality is detected. Dictated on workstation # [id number] Dict: 07/08/20 1222 Trans: 07/08/20 1229 [id number] Interpreted by: MILDRED MARIANO MD Electronically signed by: Reviewed: Reviewed by Me Departure Impression Primary Impression: Inflamed internal hemorrhoid Additional Impression: Obstipation Disposition: 01 HOME, SELF-CARE Condition: Stable Departure-Patient Inst. Decision time for Depature: 13:07 Referrals: SELF,LOUIS CASTELLON (PCP/Family) Primary Care Physician Patient Instructions: Hemorrhoids (DC), Constipation in Adults Add. Discharge Instructions: Drink lots of fluids. Mix 1 capful of MiraLAX in 6-8 ounces of fluid 3 times a day for the next 3 days. Suppositories once or twice a day as necessary. Continue taking Colace twice daily to stay regular. Expect to have a small amount of bleeding from the hemorrhoid over the next week. Wear a pad. Follow-up primary care as necessary. Sitz baths for 20 minutes every hour as necessary for pain. Proctofoam applied every hour as necessary for pain. Return to the ER for having chest pain, shortness of air, fever, nausea etc. Scripts Pramoxine HCl (Proctofoam) 15 Gm Foam 15 GM TP Q1HR PRN for PAIN-BREAKTHROUGH, #1 EA 0 Refills Prov: AVA AVILA 07/08/20 AVA AVILA Jul 08, 2020 11:55
[2020-07-08 12:03] LABS: BASOPHILS % (AUTO) 0 % (0-10); EOSINOPHILS # (AUTO) 0.1 10^3/uL (0.0-0.3); EOSINOPHILS % (AUTO) 1 % (0-10); HEMATOCRIT 38 % (35-52); LYMPHOCYTES # (AUTO) 0.8 10^3/uL (1.0-4.0); LYMPHOCYTES % (AUTO) 8 % (12-44); MEAN CORPUSCULAR HEMOGLOBIN 27 pg (25-34); MEAN CORPUSCULAR HGB CONC 31 g/dL (32-36); MEAN CORPUSCULAR VOLUME 86 fL (80-99); MEAN PLATELET VOLUME 9.5 fL (9.0-12.2); MONOCYTES # (AUTO) 0.5 10^3/uL (0.0-1.0); MONOCYTES % (AUTO) 5 % (0-12); NEUTROPHILS # (AUTO) 8.3 10^3/uL (1.8-7.8); NEUTROPHILS % (AUTO) 86 % (42-75); PLATELET COUNT 307 10^3/uL (130-400); WHITE BLOOD COUNT 9.7 10^3/uL (4.3-11.0)
--- NOTE | 2020-07-08 12:05 | NUR ---
TO CT PER CART.
[2020-07-08] MEDS ORDERED: HOLD METFORMIN - RECEIVED CONTRAST 20 ML VIAL IV SCH (12:15)
[2020-07-08] MEDS ORDERED: NS 100 ML (IVPB) BAG IV ONE (12:15)
[2020-07-08] MEDS ORDERED: IOHEXOL 350 MG/ML 100 ML (OMNIPAQUE 350) VIAL IV ONE (12:15)
[2020-07-08 12:23] LABS: PROTHROMBIN TIME PATIENT 23.3 SEC (12.2-14.7)
--- NOTE | 2020-07-08 12:29 | Diagnostic Imaging Report ---
PROCEDURE: CT abdomen and pelvis with contrast. TECHNIQUE: Multiple contiguous axial images were obtained through the abdomen and pelvis after administration of intravenous contrast. Auto Exposure Controls were utilized during the CT exam to meet ALARA standards for radiation dose reduction. All CT scans use one or more of the following dose optimizing techniques: automated exposure control, MA and/or KvP adjustment based on patient size and exam type or iterative reconstruction. INDICATION: Constipation and abdominal pain. COMPARISON: No prior studies are available for comparison. FINDINGS: Imaging through the lung bases demonstrates the heart to be enlarged. There is a small right and trace left pleural effusion. No discrete liver mass is identified. Gallbladder is unremarkable. No biliary ductal dilatation is seen. The pancreas and spleen are unremarkable. No adrenal mass is detected. Kidneys are unremarkable. Aorta is nonaneurysmal. Small and large bowel loops demonstrate large amount of stool load within the rectum and portions of the sigmoid colon. There is moderate stool in the right colon and transverse colon. Small bowel loops are normal in caliber. No obstruction is seen. There is no free fluid or fluid collection. There is no free air. Unopacified bladder is unremarkable. Bony structures are nonacute. IMPRESSION: 1. Cardiomegaly. 2. Bilateral pleural effusions, right greater. 3. Moderate stool load, particularly within the rectum, consistent with constipation. 4. No other significant abnormality is detected. Dictated by: Dictated on workstation # [id number]
[2020-07-08 12:32] LABS: ALANINE AMINOTRANSFERASE 11 U/L (0-55); ALBUMIN 4.2 GM/DL (3.2-4.5); ALKALINE PHOSPHATASE 95 U/L (40-136); BILIRUBIN,TOTAL 0.8 MG/DL (0.1-1.0); BUN/CREATININE RATIO 16; CALCIUM 9.5 MG/DL (8.5-10.1); CARBON DIOXIDE 26 MMOL/L (21-32); CHLORIDE 106 MMOL/L (98-107); CREATININE SERUM 0.76 MG/DL (0.60-1.30); GFR ESTIMATED > 60; GLUCOSE 144 MG/DL (70-105); SODIUM 141 MMOL/L (135-145); TOTAL PROTEIN 7.7 GM/DL (6.4-8.2)
[2020-07-08] MEDS ORDERED: L.E.T. SOLUTION 3 ML SYR TOP ONE (13:00)
[2020-07-08] MEDS ORDERED: PRAM15FO3 TP (13:11)
--- NOTE | 2020-07-08 13:16 | NUR ---
CALLED TO COME GET HER
[2020-07-08 13:33] VITALS: BP 118/86
== END 2020-07-08 13:32 | disposition home or self-care (01) ==
LOC: EDUNIT# 11:42 → ER 11:43
DX: K64.8 Other hemorrhoids (principal); K59.00 Constipation, unspecified; E78.00 Pure hypercholesterolemia, unspecified; I10 Essential (primary) hypertension; I48.91 Unspecified atrial fibrillation; Z95.5 Presence of coronary angioplasty implant and graft; Z95.0 Presence of cardiac pacemaker; Z88.0 Allergy status to penicillin; Z79.01 Long term (current) use of anticoagulants; Z79.82 Long term (current) use of aspirin
CPT/HCPCS: 36415; 74177; 80053; 82274; 85025; 85610; 85730

== ENCOUNTER 2020-07-13 12:01 | Inpatient (IN) | payer MEDICARE ==
[~2020-07-13] VITALS: Ht 165.1 cm; Wt 72.4 kg
[~2020-07-13 12:01] MED LIST changes: +PRAM15FO3 TP
[2020-07-13] MEDS ORDERED: LACTATED RINGERS 1,000 ML IV ONE (12:18)
[2020-07-13] MEDS ORDERED: cefTRIAXone FOR IV USE 1,000 MG in WATER (STERILE) FOR INJECTION 10 ML IV ONE (12:30)
[2020-07-13] MEDS ORDERED: AZITHROMYCIN INJECTION 500 MG in NS (IVPB) 250 ML IV ONE (12:30)
--- NOTE | 2020-07-13 12:32 | ED General ---
General Chief Complaint: Fever-Adult/Adol Stated Complaint: N/V FEVER CHILLS Source of Information: Patient Exam Limitations: No Limitations History of Present Illness Date Seen by Provider: Jul 13, 2020 Time Seen by Provider: 12:05 Initial Comments The patient presents to the ER by EMS from home with chief complaint that since yesterday she's been having chills and today fever Tmax 100.5. She took 1000 mg of Tylenol about an hour before EMS arrived. She's felt very poor not gotten out of bed to take her medications this morning. She has a history of atrial fibrillation and is in rapid ventricular response around 120 to 130 per EMS. After moving her on the cot she had been off oxygen for a little bit and she st arted to have a little bit of chest pain substernal lasting about 2-3 minutes. Twelve-lead EKG per EMS was normal. He did give her 3 and a 25 mg of aspirin to chew and swallow. Patient's no longer having any chest discomfort just all over body aches, shortness of air. She says she typically uses 2 L of oxygen as necessary at home. She has not been a smoker. No known sick contacts but she has been to the ER twice before this in the last 10 days for obstipation. She's been using MiraLAX as she was told and having some loose, soft stools. She's having nausea and vomiting today. She takes Cardizem and carvedilol. She is on warfarin for a blood thinner. Allergies and Home Medications Allergies Coded Allergies: Penicillins (Unverified Allergy, Unknown, 11/17/19) Home Medications Acetaminophen 325 Mg Tablet, 650 MG PO Q6H PRN for PAIN-MILD (1-4), (Reported) Aspirin 81 Mg Tablet.dr, 81 MG PO DAILY, (Reported) Atorvastatin Calcium 40 Mg Tablet, 40 MG PO DAILY, (Reported) Calcium Carbonate 600 Mg Tablet, 600 MG PO Q48H, (Reported) Carvedilol 12.5 Mg Tablet, 12.5 MG PO BID WITH MEALS Prescribed by: SIXTO ANAND on 07/01/20 5561 Cholecalciferol (Vitamin D3) 50 Mcg Capsule, 50 MCG PO DAILY, (Reported) Clopidogrel Bisulfate 75 Mg Tablet, 75 MG PO DAILY, (Reported) Cyanocobalamin 100 Mcg Tablet, 1,000 MCG PO DAILY, (Reported) Diltiazem HCl 180 Mg Cap.er.24h, 180 MG PO DAILY, (Reported) Lisinopril 20 Mg Tablet, 20 MG PO DAILY, (Reported) Nitroglycerin 0.4 Mg Tab.subl, 0 MG SL UD PRN for CHEST PAIN (ANGINA) Prescribed by: SIXTO ANAND on 07/01/20 1104 Pantoprazole Sodium 40 Mg Tablet.dr, 40 MG PO DAILY, (Reported) Polyethylene Glycol 3350 119 Gm Powder, 17 GM PO DAILY PRN for CONSTIPATION-2ND LINE, (Reported) Pramoxine HCl 15 Gm Foam, 15 GM TP Q1HR PRN for PAIN-BREAKTHROUGH Prescribed by: AVA AVILA on 07/08/20 1311 Tolterodine Tartrate 4 Mg Cap.er.24h, 4 MG PO DAILY, (Reported) Tramadol HCl 50 Mg Tablet, 50 MG PO Q6H PRN for PAIN-MODERATE (5-7), (Reported) Warfarin Sodium 1 Mg Tablet, 1 MG PO MON,MON, (Reported) TAKES AT BEDTIME 1.5MG PO ON MON,,, MON AND SAT 1MG ON MON,MON Warfarin Sodium 1 Mg Tablet, 1.5 MG PO ,,MON,MON,SAT, (Reported) TAKES AT BEDTIME 1.5MG PO ON MON,,, MON AND SAT 1MG ON MON,MON Patient Home Medication List Home Medication List Reviewed: Yes Review of Systems Review of Systems Constitutional: No chills, No diaphoresis EENTM: No ear discharge, No ear pain Respiratory: No cough; short of breath Cardiovascular: chest pain; No edema, No palpitations Gastrointestinal: No abdominal pain, No constipation, No diarrhea, No dysphagia; nausea, vomiting Genitourinary: No discharge, No dysuria Musculoskeletal: No back pain, No joint pain All Other Systems Reviewed Negative Unless Noted: Yes Past Rodwwnv-Mibyno-Kqtgjf Hx Patient Social History Alcohol Use: Denies Use Recreational Drug Use: No Smoking Status: Never a Smoker 2nd Hand Smoke Exposure: No Recent Hopitalizations: No Immunizations Up To Date Tetanus Booster (TDap): Unknown PED Vaccines UTD: Yes Date of Pneumonia Vaccine: Jun 28, 2019 Seasonal Allergies Seasonal Allergies: No Past Medical History Surgeries: Yes (SEE BELOW) Adenoidectomy, Cardiac, Coronary Stent, Pacemaker, Vascular Surgery Respiratory: Yes (CHRONIC COUGH; PNEUMONIA X1; BRONCHITIS ) Pneumonia, Sleep Apnea Cardiac: Yes (PACEMAKER 2016;CARDIAC STENTS X 4; RIGHT CAROTID STENT X 1) Atrial Fibrillation, Coronary Artery Disease, High Cholesterol, Hypertension Neurological: Yes (CVA 2016--NO RESIDUAL EFFECTS; STATES ONLY SYMPTOM WAS HEADACHE. ) Stroke [employer]EL FR[employer] History: Menopausal Genitourinary: No Gastrointestinal: No Musculoskeletal: Yes Arthritis Endocrine: No HEENT: No Cancer: No Psychosocial: No Integumentary: No Blood Disorders: No Family Medical History PSH: -CARDIAC CATHS--STENTS X 4 -RIGHT CAROTID STENT X 1 -PACEMAKER 2016 Physical Exam-Suspected Sepsis Physical Exam Vital Signs Vital Signs - First Documented 07/13/20 12:04 Temp 36.8 Pulse 116 Resp 22 B/P (MAP) 163/114 (130) Pulse Ox 96 O2 Delivery Nasal Cannula O2 Flow Rate 2.00 Capillary Refill : Height, Weight, BMI Height: '" Weight: lbs. oz. kg; 25.00 BMI Method: General Appearance: WD/WN, Moderate Distress Eyes: Bilateral Eye Normal Inspection, Bilateral Eye PERRL, Bilateral Eye EOMI HEENT: PERRL/EOMI, TMs Normal, Normal ENT Inspection; No Moist Mucous Membranes Neck: Full Range of Motion, Normal Inspection Respiratory: Lungs Clear, No Accessory Muscle Use, Decreased Breath Sounds, Respiratory Distress ([id number] with 97-100% oxygen saturations on baseline 2 L per nasal cannula) Cardiovascular: Regular Rate, Rhythm, No Edema, Normal Peripheral Pulses Gastrointestinal: Normal Bowel Sounds, No Organomegaly, Non Tender, Soft Extremity: Normal Capillary Refill, Normal Inspection, No Pedal Edema Neurologic/Psychiatric: Alert, Oriented x3, No Motor/Sensory Deficits Skin: normal color, warm/dry Focused Exam Sepsis Stage: Sepsis Possible Source: Pulmonary Lactate Level 07/13/20 12:20: Lactic Acid Level 1.61 Time of Focused Exam: 16:19 Respiratory: Lungs Clear, Normal Breath Sounds, Respiratory Distress (moderate 93% on room air) Cardiovascular: Regular Rate, Rhythm, No Edema, Normal Peripheral Pulses Capillary Refill: Less Than 3 Seconds Peripheral Pulses: 2+ Radial Pulses (R), 2+ Radial Pulses (L) Skin: normal color, warm/dry Lactic Acid Level Laboratory Tests Test 07/13/20 12:20 Lactic Acid Level 1.61 MMOL/L (0.50-2.00) Within 3hrs of presentation: Admin fluids, Admin 30ml/kg IBW due to BMI>30, Admin ABX, Blood cultures prior to ABX's, Focus exam, Lactate level Progress/Results/Core Measures Suspected Sepsis SIRS Temperature: Pulse: Respiratory Rate: Laboratory Tests 07/13/20 12:20: White Blood Count 12.6H Blood Pressure / Mean: 07/13/20 12:20: Lactic Acid Level 1.61 Laboratory Tests 07/13/20 12:20: Creatinine 0.65, INR Comment 2.4H, Platelet Count 283, Total Bilirubin 1.0 Results/Orders Lab Results Laboratory Tests Test 07/13/20 12:20 07/13/20 14:25 Range/Units White Blood Count 12.6 H 4.3-11.0 10^3/uL Red Blood Count 3.76 L 3.80-5.11 10^6/uL Hemoglobin 10.1 L 11.5-16.0 g/dL Hematocrit 32 L 35-52 % Mean Corpuscular Volume 85 80-99 fL Mean Corpuscular Hemoglobin 27 25-34 pg Mean Corpuscular Hemoglobin Concent 32 32-36 g/dL Red Cell Distribution Width 17.2 H 10.0-14.5 % Platelet Count 283 130-400 10^3/uL Mean Platelet Volume 9.7 9.0-12.2 fL Immature Granulocyte % (Auto) 1 % Neutrophils (%) (Auto) 87 H 42-75 % Lymphocytes (%) (Auto) 5 L 12-44 % Monocytes (%) (Auto) 8 0-12 % Eosinophils (%) (Auto) 0 0-10 % Basophils (%) (Auto) 0 0-10 % Neutrophils # (Auto) 11.0 H 1.8-7.8 10^3/uL Lymphocytes # (Auto) 0.6 L 1.0-4.0 10^3/uL Monocytes # (Auto) 0.9 0.0-1.0 10^3/uL Eosinophils # (Auto) 0.0 0.0-0.3 10^3/uL Basophils # (Auto) 0.0 0.0-0.1 10^3/uL Immature Granulocyte # (Auto) 0.1 0.0-0.1 10^3/uL Neutrophils % (Manual) 91 % Lymphocytes % (Manual) 5 % Monocytes % (Manual) 4 % Eosinophils % (Manual) 0 % Basophils % (Manual) 0 % Band Neutrophils 0 % Anisocytosis MODERATE Elliptocytes SLIGHT Prothrombin Time 26.4 H 12.2-14.7 SEC INR Comment 2.4 H 0.8-1.4 Activated Partial Thromboplast Time 51 H 24-35 SEC D-Dimer 0.98 H 0.00-0.49 UG/ML Sodium Level 137 135-145 MMOL/L Potassium Level 4.1 3.6-5.0 MMOL/L Chloride Level 105 98-107 MMOL/L Carbon Dioxide Level 22 21-32 MMOL/L Anion Gap 10 5-14 MMOL/L Blood Urea Nitrogen 8 7-18 MG/DL Creatinine 0.65 0.60-1.30 MG/DL Estimat Glomerular Filtration Rate > 60 BUN/Creatinine Ratio 12 Glucose Level 136 H 70-105 MG/DL Lactic Acid Level 1.61 0.50-2.00 MMOL/L Calcium Level 8.8 8.5-10.1 MG/DL Corrected Calcium 9.3 8.5-10.1 MG/DL Total Bilirubin 1.0 0.1-1.0 MG/DL Aspartate Amino Transf (AST/SGOT) 11 5-34 U/L Alanine Aminotransferase (ALT/SGPT) 8 0-55 U/L Alkaline Phosphatase 82 40-136 U/L Troponin I 0.047 H <0.028 NG/ML C-Reactive Protein High Sensitivity 15.23 H 0.00-0.50 MG/DL Total Protein 6.6 6.4-8.2 GM/DL Albumin 3.4 3.2-4.5 GM/DL Procalcitonin 0.08 <0.10 NG/ML Coronavirus 2019 (RADHA) Negative Negative Urine Color YELLOW Urine Clarity CLEAR Urine pH 6.0 5-9 Urine Specific [place] 1.025 H 1.016-1.022 Urine Protein 1+ H NEGATIVE Urine Glucose (UA) NEGATIVE NEGATIVE Urine Ketones NEGATIVE NEGATIVE Urine Nitrite NEGATIVE NEGATIVE Urine Bilirubin NEGATIVE NEGATIVE Urine Urobilinogen 0.2 < = 1.0 MG/DL Urine Leukocyte Esterase NEGATIVE NEGATIVE Urine RBC (Auto) 2+ H NEGATIVE Urine RBC 5-10 H /HPF Urine WBC NONE /HPF Urine Squamous Epithelial Cells RARE /HPF Urine Crystals NONE /LPF Urine Bacteria NEGATIVE /HPF Urine Casts NONE /LPF Urine Mucus NEGATIVE /LPF Urine Culture Indicated NO Micro Results Microbiology 07/13/20 Influenza Types A,B Antigen (NANY) - Final, Complete My Orders Orders - AVA AVILAid 19 Inhouse Test (07/13/20 12:18) Procalcitonin (Pct) (07/13/20 12:18) Hs C Reactive Protein (07/13/20 12:18) Fibrin Degradation Products (07/13/20 12:18) Cbc With Automated Diff (07/13/20 12:18) Comprehensive Metabolic Panel (07/13/20 12:18) Blood Culture (07/13/20 12:18) Sputum Culture (07/13/20 12:18) Urinalysis (07/13/20 12:18) Urine Culture (07/13/20 12:18) Protime With Inr (07/13/20 12:18) Partial Thromboplastin Time (07/13/20 12:18) Chest 1 View, Ap/Pa Only (07/13/20 12:18) Ed Iv/Invasive Line Start (07/13/20 12:18) Ed Iv/Invasive Line Start (07/13/20 12:18) Ekg Tracing (07/13/20 12:18) Troponin I (07/13/20 12:18) Vital Signs Adult Sepsis Patie Q15M (07/13/20 12:18) O2 (07/13/20 12:18) Remove Rings In Anticipation O (07/13/20 12:18) Lactic Acid Analyzer (07/13/20 12:18) Influenza A And B Antigens (07/13/20 12:18) Lactated Ringers (Lr 1000 Ml Iv Solution (07/13/20 12:18) Ceftriaxone For Iv Use (Rocephin For I (07/13/20 12:30) Azithromycin Injection (Zithromax Inject (07/13/20 12:30) Ondansetron Injection (Zofran Injectio (07/13/20 12:45) Carvedilol Tablet (Coreg Tablet) (07/13/20 12:45) Diltiazem Cd 24 Hr Capsule (Cardizem Cd (07/13/20 12:45) Manual Differential (07/13/20 12:20) Coronavirus Sars-Cov-2 So 2018 (07/13/20 13:01) Medications Given in ED Current Medications Medications Dose Ordered Sig/Natalie Route Start Time Stop Time Status Last Admin Dose Admin Azithromycin 500 mg/Sodium Chloride 255 ml @ 250 mls/hr ONCE ONCE IV 07/13/20 12:30 07/13/20 13:31 DC 07/13/20 12:37 250 MLS/HR Carvedilol 12.5 mg ONCE ONCE PO 07/13/20 12:45 07/13/20 12:46 DC 07/13/20 12:43 12.5 MG Ceftriaxone Sodium 1000 mg/ Sterile Water 10 ml @ 200 mls/hr ONCE ONCE IV 07/13/20 12:30 07/13/20 12:32 DC 07/13/20 12:36 200 MLS/HR Diltiazem HCl 180 mg ONCE ONCE PO 07/13/20 12:45 07/13/20 12:46 DC 07/13/20 12:43 180 MG Lactated Ringer's 1,000 ml @ 0 mls/hr Q0M ONCE IV 07/13/20 12:18 07/13/20 12:28 DC 07/13/20 12:36 0 MLS/HR Ondansetron HCl 8 mg ONCE ONCE IVP 07/13/20 12:45 07/13/20 12:46 DC 07/13/20 12:44 8 MG Vital Signs/I&O 07/13/20 12:04 Temp 36.8 Pulse 116 Resp 22 B/P (MAP) 163/114 (130) Pulse Ox 96 O2 Delivery Nasal Cannula O2 Flow Rate 2.00 Capillary Refill : Progress Note #1: Time: 12:30 Progress Note Plan to give her 30 mils per kilogram which would be 2 L of fluids. She has already got 1 L started by EMS. Plan to give her 8 of Zofran for her nausea as well as a dose of carvedilol and Cardizem 180 mg. As we hydrate her if this does not correct her tachycardia sufficiently then we can use IV medications or if she cannot tolerate oral route. Her 2 minutes of chest pain and probably relates more to her hypoxia but we will get an EKG, troponin. Septic workup. Rocephin and azithromycin is a suspect she has a pneumonia, possibly viral. We'll get COVID and influenza swabs. Progress Note #2: Time: 13:30 Progress Note Still suspicious for viral pneumonia given her complaints and her interstitial edema seen on chest x-ray. Plan to get a send out COVID-19. Plan to cover her with antibiotics and place her in the hospital. ECG Initial ECG Impression Date: Jul 13, 2020 Initial ECG Impression Time: 12:28 Initial ECG Rate: 118 Initial ECG Rhythm: A Fib/Flutter Initial ECG Intervals: QT (450) Initial ECG Impression: Atrial Fibrillation Comment Atrial fibrillation with tachycardia possibly rapid ventricular response. No clinically relevant ST elevation or depression. Diagnostic Imaging Diagonstic Imaging: Xray Plain Films/CT/US/NM/MRI: chest Comments NAME: KEISHA ESPAÑA MED REC#: [id number] PT STATUS: REG ER : 1940 PHYSICIAN: AVA AVILA MD ADMIT DATE: 07/13/20/ER Signed Date of Exam:07/13/20 CHEST 1 VIEW, AP/PA ONLY INDICATION: Sepsis. EXAMINATION: Frontal chest obtained at 12:45 p.m. and compared to 06/28/2020. FINDINGS: There is cardiomegaly. Pacemaker is unchanged. There is central vascular congestion with mild interstitial edema. There is no consolidation or pleural fluid. IMPRESSION: Cardiomegaly with central vascular congestion and mild interstitial edema. No overt consolidation or pleural fluid. Dictated by: Dictated on workstation # [id number] Dict: 07/13/20 1301 Trans: 07/13/20 1318 [facility] [id number] Interpreted by: IGNACIA GAITAN MD Electronically signed by: IGNACIA GAITAN MD 07/13/20 1318 Reviewed: Reviewed by Me Departure Communication (Admissions) Time/Spoke to Admitting Phy: 15:40 Discussed the case with Dr. Anand and she would agree to take the patient the floor with consult to Dr. Valenzuela and Dr. Marie. Time/Spoke to Consulting Phy: 16:10 [phone] discussed the case with Dr. Marie and he agrees to consult on the case. Discussed the case with Dr. Valenzuela and he agrees to consult on the case. Continue her home cardiac medications. Impression Primary Impression: Sepsis Qualified Codes: A41.9 - Sepsis, unspecified organism; R65.20 - Severe sepsis without septic shock; J96.01 - Acute respiratory failure with hypoxia Additional Impressions: Pneumonia Qualified Codes: J18.9 - Pneumonia, unspecified organism Chest pain Qualified Codes: R07.9 - Chest pain, unspecified Person under investigation for COVID-19 Disposition: 01 HOME, SELF-CARE Condition: Stable Admissions Decision to Admit Reason: Admit from ER (General) Decision to Admit/Date: Jul 13, 2020 Time/Decision to Admit Time: 15:20 Departure-Patient Inst. Referrals: SELFLOUIS MD (PCP/Family) Primary Care Physician AVA AVILA Jul 13, 2020 12:32
[2020-07-13 12:35] LABS: BASOPHILS % (AUTO) 0 % (0-10); EOSINOPHILS % (AUTO) 0 % (0-10); HEMATOCRIT 32 % (35-52); HEMOGLOBIN 10.1 g/dL (11.5-16.0); LYMPHOCYTES # (AUTO) 0.6 10^3/uL (1.0-4.0); LYMPHOCYTES % (AUTO) 5 % (12-44); MEAN CORPUSCULAR HEMOGLOBIN 27 pg (25-34); MEAN CORPUSCULAR HGB CONC 32 g/dL (32-36); MEAN CORPUSCULAR VOLUME 85 fL (80-99); MEAN PLATELET VOLUME 9.7 fL (9.0-12.2); MONOCYTES # (AUTO) 0.9 10^3/uL (0.0-1.0); MONOCYTES % (AUTO) 8 % (0-12); NEUTROPHILS % (AUTO) 87 % (42-75); PLATELET COUNT 283 10^3/uL (130-400); WHITE BLOOD COUNT 12.6 10^3/uL (4.3-11.0)
[2020-07-13 12:38] LABS: ALBUMIN 3.4 GM/DL (3.2-4.5)
[2020-07-13 12:39] LABS: CHLORIDE 105 MMOL/L (98-107); POTASSIUM 4.1 MMOL/L (3.6-5.0); SODIUM 137 MMOL/L (135-145)
[2020-07-13 12:40] LABS: CALCIUM 8.8 MG/DL (8.5-10.1)
[2020-07-13 12:41] LABS: GLUCOSE 136 MG/DL (70-105); TOTAL PROTEIN 6.6 GM/DL (6.4-8.2)
[2020-07-13 12:42] LABS: CARBON DIOXIDE 22 MMOL/L (21-32)
[2020-07-13 12:43] LABS: FIBRIN DEGRADATION PRODUCTS 0.98 UG/ML (0.00-0.49); INR 2.4 (0.8-1.4); PROTHROMBIN TIME PATIENT 26.4 SEC (12.2-14.7)
[2020-07-13 12:44] LABS: ALKALINE PHOSPHATASE 82 U/L (40-136)
[2020-07-13 12:45] LABS: CREATININE SERUM 0.65 MG/DL (0.60-1.30); GFR ESTIMATED > 60
[2020-07-13] MEDS ORDERED: ONDANSETRON 4 MG/2 ML (SDV) Z0FRAN IVP ONE (12:45)
[2020-07-13] MEDS ORDERED: CARVEDILOL 12.5 MG (COREG) TABLET PO ONE (12:45)
[2020-07-13 12:46] LABS: BUN/CREATININE RATIO 12
[2020-07-13 12:47] LABS: ALANINE AMINOTRANSFERASE 8 U/L (0-55)
[2020-07-13 12:59] LABS: ANISOCYTOSIS MODERATE; BAND NEUTROPHILS 0 %; BASOPHILS % (MANUAL) 0 %; ELLIPT/OVALOCYTES SLIGHT; EOSINOPHILS % (MANUAL) 0 %; LYMPHOCYTES % (MANUAL) 5 %; MONOCYTES % (MANUAL) 4 %; NEUTROPHILS % (MANUAL) 91 %
--- NOTE | 2020-07-13 13:06 | Diagnostic Imaging Report ---
INDICATION: Sepsis. EXAMINATION: Frontal chest obtained at 12:45 p.m. and compared to 06/28/2020. FINDINGS: There is cardiomegaly. Pacemaker is unchanged. There is central vascular congestion with mild interstitial edema. There is no consolidation or pleural fluid. IMPRESSION: Cardiomegaly with central vascular congestion and mild interstitial edema. No overt consolidation or pleural fluid. Dictated by: Dictated on workstation # [id number]
[2020-07-13 14:43] LABS: BILIRUBIN,URINE NEGATIVE (NEGATIVE); CLARITY,URINE CLEAR; COLOR,URINE YELLOW; GLUCOSE, URINE (UA) NEGATIVE (NEGATIVE); KETONES,URINE NEGATIVE (NEGATIVE); LEUKOCYTE ESTERASE ,URINE NEGATIVE (NEGATIVE); NITRITE,URINE NEGATIVE (NEGATIVE); PROTEIN,URINE 1+ (NEGATIVE)
[2020-07-13 14:56] LABS: BACTERIA,URINE NEGATIVE /HPF; SQUAMOUS EPITHELIAL CELL,UR RARE /HPF
[2020-07-13 17:05] VITALS: BP 129/59
--- NOTE | 2020-07-13 17:05 | NUR ---
KEISHA ESPAÑA admitted to room 425-1, with an admitting diagnosis of pneumonia, jpui, sepsis, on 07/13/20 from ed via wheelchair accompanied by staff.KEISHA ESPAÑA introduced to surroundings, call light, bed controls, phone, TV, temperature control, lights, meal times, smoking policy, visitor policy, side rail policy, bathrooms and showers. Patient Rights given to patient in the handbook. KEISHA ESPAÑA verbalizes understanding that [facility] is not responsible for the loss or damage to any personal effects or valuables that are kept in the patients posession during their hospitalization. KEISHA ESPAÑA verbalizes understanding of Interdisciplinary Patient Education. Patient and/or family were informed about the Rapid Response Team and its purpose.
--- NOTE | 2020-07-13 17:14 | NUR ---
CR 0.65; CR CL ~43 (USED ADJ WT 63.1 KG); ACTUAL WT 72.4 KG; VANCO 1750 MG IV BOLUS THEN 1000 MG IV Q24H X 3 DAYS
[2020-07-13] MEDS ORDERED: ONDANSETRON 4 MG/2 ML (SDV) Z0FRAN IV PRN (17:30)
[2020-07-13] MEDS ORDERED: CATHETER FLUSH 10 ML SYR IV PRN (17:30)
[2020-07-13] MEDS ORDERED: VANCOMYCIN 1,750 MG/NS 500 ML IVPB IV NR ×2 (17:30)
[2020-07-13] MEDS ORDERED: ACETAMINOPHEN 650 MG SUPP (TYLENOL) PR PRN (17:30)
[2020-07-13] MEDS: CEFEPIME 1,000 MG/SWFI 10 ML IV PUSH IV SCH ×2 (17:46)
[2020-07-13] MEDS: LACTATED RINGERS 1,000 ML IV SCH (17:47)
[2020-07-13] MEDS ORDERED: warFARin 3 MG (COUMADIN) TAB PO SCH (18:00)
[2020-07-13 19:43] VITALS: BP 170/77
--- NOTE | 2020-07-13 20:41 | History & Physical-Hospitalist ---
History of Present Illness HPI/Chief Complaint CC: Dyspnea HPI: This is an 80yoWF clinic patient of [facility] who is known to me from prior and multiple and recent hospital stays of which she declines to go to a NH who presents to the ER with dyspnea and found to have volume overload and elevated troponin and concerning signs for PNA so she was placed on Tely and abx and Cardiology was consulted along with COVID testing. Currently she is dyspneic and told me about the recent ER visit from constipation she had which finally completely resolved and now she is having loose stools. Overall she has declined significantly since last seen and really needs to go to a NH. Source: patient Exam Limitations: no limitations Date Seen 07/13/20 Time Seen by a Provider: 18:00 Attending Physician Tamara Mclean DO PCP Self,Greg CASTELLON Referring Physician Date of Admission Jul 13, 2020 at 14:00 Home Medications & Allergies Home Medications Reviewed patient Home Medication Reconciliation performed by pharmacy medication reconciliations wet process technician and/or nursing. Patients Allergies have been reviewed. Allergies Allergies Coded Allergies Penicillins (Unverified Allergy, Unknown, 11/17/19) Past Aaphizy-Zdwkcx-Fpzokc Hx Past Med/Social Hx: Reviewed Nursing Past Med/Soc Hx, Reviewed and Corrections made Patient Social History Marrital Status: Employed/Student: retired Alcohol Use: Denies Use Recreational Drug Use: No Smoking Status: Never a Smoker 2nd Hand Smoke Exposure: No Recent Foreign Travel: No Contact w/other who traveled: No Recent Hopitalizations: No Recent Infectious Disease Expo: No Immunizations Up To Date Tetanus Booster (TDap): Unknown Pediatric: Yes Date of Pneumonia Vaccine: Jul 08, 2019 Seasonal Allergies Seasonal Allergies: No Past Medical History Surgeries: Adenoidectomy, Cardiac, Coronary Stent, Pacemaker, Vascular Surgery hypoxia on home O2 since 06/26/20 Cardiac: Atrial Fibrillation, Coronary Artery Disease, High Cholesterol, Hypertension Neurological: Stroke Menopausal Musculoskeletal: Arthritis History of Blood Disorders: No Family History PSH: -CARDIAC CATHS--STENTS X 4 -RIGHT CAROTID STENT X 1 -PACEMAKER 2016 Review of Systems Constitutional: see HPI, malaise, weakness Respiratory: dyspnea on exertion, short of breath, wheezing Cardiovascular: palpitations Physical Exam Physical Exam Vital Signs Vital Signs - First Documented 07/13/20 12:04 Temp 36.8 Pulse 116 Resp 22 B/P (MAP) 163/114 (130) Pulse Ox 96 O2 Delivery Nasal Cannula O2 Flow Rate 2.00 Capillary Refill : Less Than 3 Seconds Height, Weight, BMI Height: '" Weight: lbs. oz. kg; 26.56 BMI Method: General Appearance: WD/WN, Anxious, Chronically ill, Mild Distress Eyes: Right Eye Normal Inspection, Right Eye PERRL HEENT: PERRL/EOMI, Normal ENT Inspection, Pharynx Normal, Moist Mucous Membranes Neck: Full Range of Motion, Normal Inspection, Non Tender Respiratory: Chest Non Tender, No Accessory Muscle Use, No Respiratory Distress, Decreased Breath Sounds, Wheezing Cardiovascular: Regular Rate, Rhythm, No Edema, No Gallop, No JVD, No Murmur, Normal Peripheral Pulses Gastrointestinal: Normal Bowel Sounds, No Organomegaly, No Pulsatile Mass, Non Tender, Soft Back: Normal Inspection, No CVA Tenderness, No Vertebral Tenderness Extremity: Normal Capillary Refill, Normal Inspection, Normal Range of Motion, Non Tender, No Calf Tenderness, No Pedal Edema Neurologic/Psychiatric: Alert, Oriented x3, No Motor/Sensory Deficits, Normal Mood/Affect Skin: Normal Color, Warm/Dry Lymphatic: No Adenopathy Results Results/Procedures Labs Laboratory Tests 07/13/20 12:20 07/14/20 03:05 Patient resulted labs reviewed. Assessment/Plan Admission Diagnosis Assessment: Dyspnea COVID negative CHF AF Elevated troponin Hypoxia on home on O2 at home since 06/26/202015 OAC Plan: O2 COVID test pending Cards Pulmo DNR Admission Status: Inpatient Order (span 2 midnights) Reason for Inpatient Admission: chf and elevated troponin Diagnosis/Problems Diagnosis/Problems (1) Chest pain Status: Acute Qualifiers: Chest pain type: unspecified Qualified Codes: R07.9 - Chest pain, unspecified (2) Pneumonia Status: Acute Qualifiers: Pneumonia type: due to unspecified organism Laterality: unspecified laterality Lung location: unspecified part of lung Qualified Codes: J18.9 - Pneumonia, unspecified organism (3) Stented coronary artery (4) Pacemaker (5) PVD (peripheral vascular disease) (6) CAD (coronary artery disease) (7) Atrial fibrillation (8) Acute on chronic heart failure Status: Acute Clinical Quality Measures DVT/VTE Risk/Contraindication: Risk Factor Score Per Nursin RFS Level Per Nursing on Admit: 4+=Very High TAMARA MCLEAN DO Jul 13, 2020:41
[2020-07-13] MEDS ORDERED: ACETAMINOPHEN 325 MG TABLET PO PRN (20:45)
[2020-07-13] MEDS ORDERED: polyethylene glycoL Bowel Prep(MIRALAX) 238 GM PO PRN (20:45)
[2020-07-13] MEDS ORDERED: NITROGLYCERIN 0.4 MG SL TABS BTL 25'S SL PRN (20:45)
[2020-07-13] MEDS ORDERED: CARVEDILOL 12.5 MG (COREG) TABLET PO SCH (21:00)
[2020-07-13] MEDS: CALCIUM CARBONATE 600 MG (CALCARB) TAB PO SCH (23:26)
[2020-07-14] VITALS (7 sets, daily range): BP systolic 127–163; BP diastolic 59–114
[2020-07-14] MEDS: CEFEPIME 1,000 MG/SWFI 10 ML IV PUSH IV SCH ×8 (00:03→21:17)
[2020-07-14 03:16] LABS: BASOPHILS % (AUTO) 0 % (0-10); EOSINOPHILS % (AUTO) 0 % (0-10); HEMATOCRIT 29 % (35-52); HEMOGLOBIN 9.1 g/dL (11.5-16.0); LYMPHOCYTES # (AUTO) 0.5 10^3/uL (1.0-4.0); LYMPHOCYTES % (AUTO) 5 % (12-44); MEAN CORPUSCULAR HEMOGLOBIN 27 pg (25-34); MEAN CORPUSCULAR HGB CONC 31 g/dL (32-36); MEAN CORPUSCULAR VOLUME 86 fL (80-99); MEAN PLATELET VOLUME 9.6 fL (9.0-12.2); MONOCYTES # (AUTO) 0.7 10^3/uL (0.0-1.0); MONOCYTES % (AUTO) 7 % (0-12); NEUTROPHILS # (AUTO) 8.6 10^3/uL (1.8-7.8); NEUTROPHILS % (AUTO) 88 % (42-75); PLATELET COUNT 236 10^3/uL (130-400); WHITE BLOOD COUNT 9.8 10^3/uL (4.3-11.0)
[2020-07-14 03:25] LABS: ALBUMIN 3.2 GM/DL (3.2-4.5); CHLORIDE 107 MMOL/L (98-107); POTASSIUM 3.8 MMOL/L (3.6-5.0); SODIUM 136 MMOL/L (135-145)
[2020-07-14 03:27] LABS: CALCIUM 8.7 MG/DL (8.5-10.1)
[2020-07-14 03:28] LABS: GLUCOSE 140 MG/DL (70-105)
[2020-07-14 03:29] LABS: CARBON DIOXIDE 18 MMOL/L (21-32); INR 2.6 (0.8-1.4); PROTHROMBIN TIME PATIENT 27.8 SEC (12.2-14.7)
[2020-07-14 03:30] LABS: BILIRUBIN,TOTAL 0.6 MG/DL (0.1-1.0)
[2020-07-14] MEDS: ACETAMINOPHEN 325 MG TABLET PO PRN (03:30)
[2020-07-14 03:31] LABS: ALKALINE PHOSPHATASE 78 U/L (40-136); CREATININE SERUM 0.58 MG/DL (0.60-1.30); GFR ESTIMATED > 60
[2020-07-14 03:32] LABS: BUN/CREATININE RATIO 16
[2020-07-14 03:34] LABS: ALANINE AMINOTRANSFERASE 8 U/L (0-55)
[2020-07-14] MEDS: PANTOPRAZOLE 40 MG (PROTONIX) TAB PO SCH (06:06)
[2020-07-14] MEDS: LACTATED RINGERS 1,000 ML IV SCH (06:07)
[2020-07-14] MEDS ORDERED: HYDROCORTISONE/PRAM (PROCTOFOAM HC) 10 GM CAN PR PRN (07:00)
--- NOTE | 2020-07-14 07:10 | NUR ---
New order rec from Dr. Mclean to take pt out of PUI isolation.
[2020-07-14] MEDS ORDERED: polyethylene glycoL POWDER 17 GM (MIRALAX) PACK PO PRN (07:45)
[2020-07-14] MEDS: TOLTERODINE LA 4 MG (DETROL) CAP PO SCH (08:09)
[2020-07-14] MEDS: VITAMIN D3 25 MCG (1,000 UNITS) TABLET PO SCH (08:09)
[2020-07-14] MEDS: CYANOCOBALAMIN 1,000 MCG (VITAMIN B-12) TABLET PO SCH (08:09)
[2020-07-14] MEDS: lisINopril 20 MG (PRINIVIL) TABLET PO SCH (08:09)
[2020-07-14] MEDS: CLOPIDOGREL 75 MG (PLAVIX) TABLET PO SCH (08:10)
[2020-07-14] MEDS: ASPIRIN E.C. 81 MG (ECOTRIN) TAB PO SCH (08:10)
[2020-07-14] MEDS: CARVEDILOL 12.5 MG (COREG) TABLET PO SCH ×2 (08:10→17:26)
--- NOTE | 2020-07-14 08:30 | Diagnostic Imaging Report ---
Portable erect AP chest at 4:08. Indication: Dyspnea Findings: The cardiomegaly and the left-sided pacemaker seen on the prior exam of 07/13/2020 are again evident and no different. As on the prior study the central pulmonary vascularity is prominent and perhaps slightly more engorged than on the previous exam. There is still no evidence for pneumonia or for significant pleural effusion. The mediastinum is not widened. The osseous structures are intact. Impression: There may be somewhat greater pulmonary congestion than noted on the prior exam. The overall appearance of the chest however is essentially no different. Dictated by: Dictated on workstation # [id number]
[2020-07-14] MEDS ORDERED: CLOPIDOGREL 75 MG (PLAVIX) TABLET PO SCH (09:00)
--- NOTE | 2020-07-14 10:11 | Progress Note - Hospitalist ---
Subjective HPI/CC On Admission Date Seen by Provider: Jul 14, 2020 Time Seen by Provider: 09:00 CC: Dyspnea HPI: This is an 80yoWF clinic patient of [facility] who is known to me from prior and multiple and recent hospital stays of which she declines to go to a NH who presents to the ER with dyspnea and found to have volume overload and elevated troponin and concerning signs for PNA so she was placed on Tely and abx and Cardiology was consulted along with COVID testing. Currently she is dyspneic and told me about the recent ER visit from constipation she had which finally completely resolved and now she is having loose stools. Overall she has declined significantly since last seen and really needs to go to a NH. Subjective/Events-last exam Pt had and okay night Xanax will be given for anxiety PT and OT will be ordered Pt really is a hospice candidate due to multiple admissions and minimal recovery expected She is DNR Review of Systems General: Fatigue, Malaise Pulmonary: Dyspnea, Cough Neurological: Weakness Focused Exam Lactate Level 07/13/20 12:20: Lactic Acid Level 1.61 Time of Focused Exam: 16:19 Objective Exam Vital Signs Vital Signs Date Time Temp Pulse Resp B/P (MAP) Pulse Ox O2 Delivery O2 Flow Rate FiO2 07/15/20 04:00 36.0 85 28 142/73 (96) 96 Nasal Cannula 2.00 07/14/20 09:23 28 Capillary Refill : Less Than 3 Seconds General Appearance: No Apparent Distress, WD/WN, Anxious, Chronically ill HEENT: PERRL/EOMI, Normal ENT Inspection, Pharynx Normal, Moist Mucous Membranes Neck: Full Range of Motion, Normal Inspection, Non Tender, Supple, Carotid Bruit Respiratory: Chest Non Tender, Lungs Clear, No Accessory Muscle Use, No Respiratory Distress, Decreased Breath Sounds Cardiovascular: Regular Rate, Rhythm, No Edema, No Gallop, No JVD, No Murmur, Normal Peripheral Pulses Gastrointestinal: Normal Bowel Sounds, No Organomegaly, No Pulsatile Mass, Non Tender, Soft Back: Normal Inspection, No CVA Tenderness, No Vertebral Tenderness Extremity: Normal Capillary Refill, Normal Inspection, Normal Range of Motion, Non Tender, No Calf Tenderness, No Pedal Edema Neurologic/Psychiatric: Alert, Oriented x3, No Motor/Sensory Deficits, Normal Mood/Affect Skin: Normal Color, Warm/Dry Lymphatic: No Adenopathy Results/Procedures Lab Laboratory Tests 07/15/20 04:25 Patient resulted labs reviewed. Assessment/Plan Assessment and Plan Assess & Plan/Chief Complaint Assessment: Chest pain Pneumonia CHF Anxiety Severe debility Plan: Xanax for anxiety PT/OT Diagnosis/Problems Diagnosis/Problems (1) Chest pain Status: Acute Qualifiers: Chest pain type: unspecified Qualified Codes: R07.9 - Chest pain, unspecified (2) Pneumonia Status: Acute Qualifiers: Pneumonia type: due to unspecified organism Laterality: unspecified laterality Lung location: unspecified part of lung Qualified Codes: J18.9 - Pneumonia, unspecified organism (3) Stented coronary artery (4) Pacemaker (5) PVD (peripheral vascular disease) (6) CAD (coronary artery disease) (7) Atrial fibrillation (8) Acute on chronic heart failure Status: Acute Clinical Quality Measures DVT/VTE Risk/Contraindication: Risk Factor Score Per Nursin RFS Level Per Nursing on Admit: 4+=Very High SIXTO ANAND DO Jul 14, 2020 10:11
[2020-07-14] MEDS ORDERED: ALPRAZolam 0.25 MG (XANAX) TAB PO PRN (10:15)
[2020-07-14] MEDS ORDERED: RT-ALBUTEROL/IPRATROPIUM 3 ML (DUONEB) VIAL INH PRN (11:00)
--- NOTE | 2020-07-14 13:13 | Consultation-Cardiology ---
HPI-Cardiology Cardiology Consultation: Date of Consultation 07/14/20 Time Seen by a Provider: 14:00 Date of Admission Attending Physician Tamara Anand DO Admitting Physician Greg Vargas MD Consulting Physician ANDREINA LEAHY MD, MA, FACP, FACC, FSCAI, CCDS HPI: Chief Complaint: CC: Chills, Malaise, Shortness of Breath HPI 80 yo woman who awoke on the night prior to admission not feeling well: gen malaise, aching, weakness, chills, shortness of breath Does not report cp or palp or syncope Does not repot n/v/d Does not report dysuria Review of Systems-Cardiology Review of Systems Constitutional: As described under HPI Eyes: No vision change Ears/Nose/Throat: No ear discharge, No nasal drainage, No recent hearing loss Respiratory: As described under HPI Cardiovascular: As described under HPI Gastrointestinal: As described under HPI Genitourinary: No dysuria, No hematuria, No urine frequency changes Musculoskeletal: back pain (chroni), joint pain (chronic) Skin: No rash on exposed areas, No ulcerations on exposed areas Psychiatric/Neurological: No seizure, No focal weakness Hematologic: No bleeding abnormalities All Other Systems Reviewed Negative Unless Noted: Yes ZOE-Szobbx-Qpvliz Hx Patient Social History Marrital Status: Employed/Student: retired Alcohol Use: Denies Use Recreational Drug Use: No Smoking Status: Never a Smoker 2nd Hand Smoke Exposure: No Recent Foreign Travel: No Recent Infectious Disease Expo: No Hospitalization with Isolation: Denies Immunizations Up To Date Tetanus Booster (TDap): Unknown Date of Pneumonia Vaccine: Jul 08, 2019 Past Medical History PMH As described under Assessment. Family Medical History Family Medical History: She does not report fam h/o early CAD Allergies and Home Medications Allergies Coded Allergies: Penicillins (Unverified Allergy, Unknown, 11/17/19) Home Medications Acetaminophen 325 Mg Tablet, 650 MG PO Q6H PRN for PAIN-MILD (1-4), (Reported) Aspirin 81 Mg Tablet.dr, 81 MG PO DAILY, (Reported) Atorvastatin Calcium 40 Mg Tablet, 40 MG PO DAILY, (Reported) Calcium Carbonate 600 Mg Tablet, 600 MG PO Q48H, (Reported) Carvedilol 12.5 Mg Tablet, 12.5 MG PO BID WITH MEALS Prescribed by: TAMARA ANAND on 07/01/20 1104 Cholecalciferol (Vitamin D3) 50 Mcg Capsule, 50 MCG PO DAILY, (Reported) Clopidogrel Bisulfate 75 Mg Tablet, 75 MG PO DAILY, (Reported) Cyanocobalamin 100 Mcg Tablet, 1,000 MCG PO DAILY, (Reported) Diltiazem HCl 180 Mg Cap.er.24h, 180 MG PO DAILY, (Reported) Lisinopril 20 Mg Tablet, 20 MG PO DAILY, (Reported) Nitroglycerin 0.4 Mg Tab.subl, 0 MG SL UD PRN for CHEST PAIN (ANGINA) Prescribed by: TAMARA ANAND on 07/01/20 1104 Pantoprazole Sodium 40 Mg Tablet.dr, 40 MG PO DAILY, (Reported) Polyethylene Glycol 3350 119 Gm Powder, 17 GM PO DAILY PRN for CONSTIPATION-2ND LINE, (Reported) Pramoxine HCl 15 Gm Foam, 15 GM TP Q1HR PRN for PAIN-BREAKTHROUGH Prescribed by: AVA AVILA on 07/08/20 1311 Tolterodine Tartrate 4 Mg Cap.er.24h, 4 MG PO DAILY, (Reported) Tramadol HCl 50 Mg Tablet, 50 MG PO Q6H PRN for PAIN-MODERATE (5-7), (Reported) Warfarin Sodium 1 Mg Tablet, 1 MG PO MON,MON, (Reported) TAKES AT BEDTIME 1.5MG PO ON MON,,, FRI AND SAT 1MG ON MON,MON Warfarin Sodium 1 Mg Tablet, 1.5 MG PO ,,MON,MON,SAT, (Reported) TAKES AT BEDTIME 1.5MG PO ON MON,,, MON AND SAT 1MG ON MON,MON Patient Home Medication List Home Medication List Reviewed: Yes Physical Exam-Cardiology Physical Exam Vital Signs/I&O 07/14/20 07/14/20 07/14/20 07/14/20 03:28 06:36 08:00 08:00 Temp 37.2 36.1 Pulse 104 90 86 Resp 24 18 B/P (MAP) 133/76 (95) 153/74 (100) Pulse Ox 93 94 O2 Delivery Nasal Cannula Nasal Cannula Nasal Cannula O2 Flow Rate 3.00 3.00 2.00 07/14/20 07/14/20 07/14/20 07/14/20 09:23 09:32 11:45 12:36 Temp 36.8 36.2 Pulse 116 74 81 Resp 18 B/P (MAP) 127/59 (81) Pulse Ox 96 94 O2 Delivery Nasal Cannula Nasal Cannula O2 Flow Rate 3.00 3.00 FiO2 28 07/14/20 00:00 Intake Total 2942.5 ml Balance 2942.5 ml Capillary Refill : Less Than 3 Seconds Constitutional: AAO x 3, well-developed, well-nourished HEENT: EOMI, hearing is well preserved; No xanthelasmas are seen Neck: carotid pulses are 2 + bilaterally, with good upstrokes Respiratory: other (good bilat air entry, some coarse and fine crackles in the bases) Cardiovascular: regular rate-rhythm, S1 and S2, systolic murmur (soft MAGDALENE at card base) Gastrointestinal: No tender; soft; No guarding, No rebound; audible bowel sounds Extremities: No clubbing, No cyanosis, No significant edema Neurologic/Psychiatric: oriented x 3, other (moves all limbs equally) Skin: normal color, warm/dry Data Review Labs Laboratory Tests 07/13/20 14:25: Urine Color YELLOW, Urine Clarity CLEAR, Urine pH 6.0, Urine Specific [place] 1.025H, Urine Protein 1+H, Urine Glucose (UA) NEGATIVE, Urine Ketones NEGATIVE, Urine Nitrite NEGATIVE, Urine Bilirubin NEGATIVE, Urine Urobilinogen 0.2, Urine Leukocyte Esterase NEGATIVE, Urine RBC (Auto) 2+H, Urine RBC 5-10H, Urine WBC NONE, Urine Squamous Epithelial Cells RARE, Urine Crystals NONE, Urine Bacteria NEGATIVE, Urine Casts NONE, Urine Mucus NEGATIVE, Urine Culture Indicated NO 07/13/20 21:29: Troponin I 0.155H 07/14/20 03:05: Troponin I 0.121H, White Blood Count 9.8, Red Blood Count 3.42L, Hemoglobin 9.1L , Hematocrit 29L, Mean Corpuscular Volume 86, Mean Corpuscular Hemoglobin 27, Mean Corpuscular Hemoglobin Concent 31L, Red Cell Distribution Width 17.0H, P latelet Count 236, Mean Platelet Volume 9.6, Immature Granulocyte % (Auto) 0, Neutrophils (%) (Auto) 88H, Lymphocytes (%) (Auto) 5L, Monocytes (%) (Auto) 7, E osinophils (%) (Auto) 0, Basophils (%) (Auto) 0, Neutrophils # (Auto) 8.6H, Lymphocytes # (Auto) 0.5L, Monocytes # (Auto) 0.7, Eosinophils # (Auto) 0.0, Basophils # (Auto) 0.0, Immature Granulocyte # (Auto) 0.0, Prothrombin Time 27.8H, INR Comment 2.6H, Sodium Level 136, Potassium Level 3.8, Chloride Level 107, Carbon Dioxide Level 18L, Anion Gap 11, Blood Urea Nitrogen 9, Creatinine 0.58L, Estimat Glomerular Filtration Rate > 60, BUN/Creatinine Ratio 16, Glucose Level 140H, Calcium Level 8.7, Corrected Calcium 9.3, Total Bilirubin 0.6, Aspartate Amino Transf (AST/SGOT) 12, Alanine Aminotransferase (ALT/SGPT) 8, Alkaline Phosphatase 78, Total Protein 6.0L, Albumin 3.2 Microbiology 07/13/20 Influenza Types A,B Antigen (NANY) - Final, Complete Laboratory Tests 07/13/20 12:20 07/14/20 03:05 A/P-Cardiology Assessment/Admission Diagnosis Fever and chills at presentation, etiology undetermined, managed by Dr Anand Acute, decompensated, systolic and diastolic CHF Mild troponin elevation, likely type 2 VT due to CHF CAD. Card cath of Jun 28, 2020: The left circumflex artery had a near total occlusion that was reduced to less than 50% with balloon angioplasty. The left anterior descending artery is known to have Synergy 3.5 x 28 and 3.0 x 16 mm stents that have have recurrent stent restenoses and that were again exhibiting 90% stenosis. This was reduced to less than 50% with balloon angioplasty. The right coronary artery is known to have Synergy 4.0 x 38 and 3.5 x 38 stents that were patent. All vessels had diffuse moderate disease. Ischemic cardiomyopathy with apical akinesis to dyskinesis and left ventricular ejection fraction approximately 40%. Elevated left ventricular end-diastolic pressure. ICM - LVEF 40% per cardiac cath of Jun 28, 2020 Echo of 11/18/19: LVEF 40-45%, apical and basal inf hypokinesis, biatrial enlargement, mod MR, mod to sev TR, RVSP 35 mmHg Chronic A Fib S/p Medtronic dual chamber pacemaker in 2017 at ([facility] - Dr Pierce). Functioning normally per interrogation of February 15, 2020 Chronic warfarin anticoag - managed by her pcp. Therapeutic INR on 07/13 and 07/14/20 Carotid art dz. 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 She does not recall the date of her stroke Gen weakness and limited ambulation Poor memory GERD/PUD Discussion and Recomendations * Furosemide for decomp CHF * DAPT for CAD * Warfarin for ch A Fib. Monitor INR closely because pt currently on antibiotics * Monitor labs Clinical Quality Measures DVT/VTE Risk/Contraindication: Risk Factor Score Per Nursin RFS Level Per Nursing on Admit: 4+=Very High ANDREINA LEAHY MD FACP FAC CCDS Jul 14, 2020 13:13
--- NOTE | 2020-07-14 13:46 | NUR ---
I SPOKE WITH THE PT (I CALLED HIS ROOM PHONE) AND WAS TOLD THE ONLY THING THAT HAS BEEN CHANGED IS HER COREG I HAD COMPLETED THE MED REC THE LAST TIME THE PT WAS HERE ON 06-30-2020 AND LIKE THE PT SAYS IT SHOWS THE ONLY CHANGE IS COREG WAS 25MG BUT NOW SHE IS TAKING COREG 12.5MG. DR. ANAND ALREADY LOOKED AND CONTINUED THE PT MEDS, THEREFORE I AM NOT MAKING ANY CHANGED TO THE MED REC
--- NOTE | 2020-07-14 14:02 | Occupational Therapy Eval ---
OT Evaluation-General/PLF Medical Diagnosis Admission Date Jul 13, 2020 at 14:00 Medical Diagnosis: Pna, chest pain Onset Date: Jul 13, 2020 Therapy Diagnosis Therapy Diagnosis: Decreased ADL status Precautions Precautions/Isolations: Fall Prevention, Standard Precautions Weight Bear Status Weight Bearing Restriction: Weight Bearing/Tolerated Referral Physician: Vinay Referral Reason: Activity Tolerance, Self Care, Evaluation/Treatment, Strengthening/ROM Medical History Pertinent Medical History: Atrial Fib, CAD, CVA, HTN Additional Medical History coronary stent, pacemaker, a fib, cardiac cath x4, stroke, CAD, HTN, arthritis Current History 07/13, admits due to dyspnea and elevated troponin. Reviewed History: Yes Social History Home: Single Level Current Living Status: Spouse Entry Into Home: Stairs With Railing Steps Into Home: 2 Steps Inside Home: 0 ADL-Prior Level of Function SCALE: Activities may be completed with or without assistive devices. 7-Msenolbldf-hlayuaj completes the activity by him/herself with no assistance from a helper. 5-Set-up or Clean-up Assistance-helper sets up or cleans up; patient completes activity. [place] assists only prior to or following the activity. 4-Supervision or Touching Assistance-helper provides verbal cues and/or touching/steadying and/or contact guard assistance as patient completes activity. Assistance may be provided throughout the activity or intermittently. 3-Partial/Moderate Assistance-helper does LESS THAN HALF the effort. [place] lifts, holds or supports trunk or limbs, but provides less than half the effort. 2-Substantial/Maximal Assistance-helper does MORE THAN HALF the effort. [place] lifts or holds trunk or limbs and provides more than half the effort. 5-Sxdcbkjxb-smdlai does ALL the effort. Patient does none of the effort to complete the activity. Or, the assistance of 2 or more helpers is required for the patient to complete the activity. If activity was not attempted, code reason: 7-Patient Refused. 9-Not Applicable-not attempted and the patient did not perform the activity before the current illness, exacerbation or injury. 10-Not Attempted due to Environmental Limitations-(lack of equipment, weather restraints, etc.). 88-Not Attempted due to Medical Conditions or Safety Concerns. ADL PLOF Comments Pt states IND with ADLs, min A with IADLs, does not drive. Self Care: Independent Functional Cognition: Independent DME/Equipment: Bath Chair, Bedside Commode, Grab Bars, Shower Drive Self: No OT Current Status Subjective Pt in recliner upon entry, states pain in chest due to decreased breathing. Pt's 02 at 97%. Pt educated on this and legs brought down from elevated position. Pt's 02 at 98%. Pt denies pain and agrees to OT eval/ treat. Mental Status/Objective Patient Orientation: Person, Place, Situation Attachments: IV, Oxygen (3 L NC) Current Hand Dominance: Right Upper Extremity ROM WFL LUE RUE: decreased shoulder flexion/ abduction, WFL all distal joints. Upper Extremity Coordination WFL BUE Upper Extremity Sensation WFL BUE Upper Extremity Strength Decreased bilaterally (3+/5) ADL-Treatment Eating (QC): 6 On/Off Footwear (QC): 6 Toileting Hygiene (QC): 4 (SBA during toileting/ bottom hygiene in stance.) Other Treatments Pt states desire for return to bed. Pt states she has only been in chair for 5 minutes. Based on dx, pt is educated on benefits of seated. Pt states decreased ability to breathe- pt high 90's through tx. Pt completes MMT/ ROM with decreased shoulder R activity. pt states completes I/ADLs with IND, min A with IADLs. Pt states difficulty with standing endurance, though does utilize 2 L 02 at home through day. Pt does not utilize AD during ambulation, states walk-ways too narrow for walker. Pt sit to stand from chair with SBA, ambulates ~3 steps to BSC and completes urination on BSC, leyda hygiene in stance. Pt able to sit to stand and return to chair SBA. Pt's 02 95%, utilizes deep/ slow breathing with cues for return to 98%. Pt doffs/ dons slip on shoes with IND. Pt left in recliner with all needs met, call light in reach, pt's LE elevated per pt request. Education OT Patient Education: Correct positioning, Home exercise program (breathing techniques) Teaching Recipient: Patient Teaching Methods: Demonstration, Discussion Response to Teaching: Verbalize Understanding, Return Demonstration OT Knitter Wire Mesh Goals [facility] Goals Time Frame: Jul 21, 2020 Eating (QC): 6 Oral Hygiene (QC): 6 Toileting Hygiene (QC): 6 Shower/Bathe Self (QC): 5 Upper Body Dressing (QC): 6 Lower Body Dressing (QC): 4 On/Off Footwear (QC): 6 Additional Goals: 1-Demonstrate ADL Tasks, 2-Verbalize Understanding, 3- ImproveStrength/Tawanna 1=Demonstrate adherence to instructed precautions during ADL tasks. 2=Patient will verbalize/demonstrate understanding of assistive devices/modifications for ADL. 3=Patient will improve strength/tolerance for activity to enable patient to perform ADL's. OT Education/Plan Problem List/Assessment Assessment: Decreased Activ Tolerance, Decreased UE Strength, Dependent Transfers, Impaired I ADL's, Impaired Self-Care Skills, Restricted Funct UE ROM Discharge Recommendations Plan/Recommendations: Continue POC Therapy Discharge Recommendati: Scheduled Assistance, Home & Family, Post Acute OT Treatment Plan/Plan of Care Treatment,Training & Education: Yes Patient would benefit from OT for education, treatment and training to promote independence in ADL's, mobility, safety and/or upper extremity function for ADL's. Plan of Care: ADL Retraining, Functional Mobility, UE Funct Exercise/Act Treatment Duration: Jul 21, 2020 Frequency: 5 times per week Estimated Hrs Per Day: .25 hour per day Agreement: Yes 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: Fair Time/GCodes Start Time: 13:35 Stop Time: 13:50 Total Time Billed (hr/min): 15 Billed Treatment Time 1JENNIFER (15) FARHAN SAINI OTR Jul 14, 2020 14:02
--- NOTE | 2020-07-14 14:03 | Physical Therapy Evaluation ---
PT Evaluation-General Medical Diagnosis Admission Date Jul 13, 2020 at 14:00 Medical Diagnosis: sepsis/pneumonia Onset Date: Jul 13, 2020 Therapy Diagnosis Therapy Diagnosis: debility/weakness Precautions Precautions/Isolations: Fall Prevention, Standard Precautions Referral Physician: Vinay Reason for Referral: Evaluation/Treatment Medical History Pertinent Medical History: Atrial Fib, CAD, CVA, Heart Failure, HTN Current History EMS secondary to chills and "not feeling well" Reviewed History: Yes Social History Home: Single Level Current Living Status: Other Family Entry Into Home: Stairs With Railing PT Steps Into Home: 1 Prior Prior Level of Function SCALE: Activities may be completed with or without assistive devices. 4-Whkspqsgen-uwzkwfa completes the activity by him/herself with no assistance from a helper. 5-Set-up or Clean-up Assistance-helper sets up or cleans up; patient completes activity. [place] assists only prior to or following the activity. 4-Supervision or Touching Assistance-helper provides verbal cues and/or touching/steadying and/or contact guard assistance as patient completes activity. Assistance may be provided throughout the activity or intermittently. 3-Partial/Moderate Assistance-helper does LESS THAN HALF the effort. [place] lifts, holds or supports trunk or limbs, but provides less than half the effort. 2-Substantial/Maximal Assistance-helper does MORE THAN HALF the effort. [place] lifts or holds trunk or limbs and provides more than half the effort. 0-Eljctpzii-sntdst does ALL the effort. Patient does none of the effort to complete the activity. Or, the assistance of 2 or more helpers is required for the patient to complete the activity. If activity was not attempted, code reason: 7-Patient Refused. 9-Not Applicable-not attempted and the patient did not perform the activity before the current illness, exacerbation or injury. 10-Not Attempted due to Environmental Limitations-(lack of equipment, weather restraints, etc.). 88-Not Attempted due to Medical Conditions or Safety Concerns. Bed Mobility: 6 Transfers (B,C,W/C): 6 Gait: 6 Stairs: 6 Indoor Mobility (Ambulation): Independent Stairs: Independent Prior Devices Use: Walker PT Evaluation-Current Subjective Patient became tearful talking about her who is having surgery today at for cancer. Objective Patient Orientation: Normal For Age Attachments: Oxygen, IV ROM/Strength ROM Lower Extremities bilateral LE WFL Strength Lower Extremities 4-/5 grossly bilateral LE Integumentary/Posture Integumentary refer to nursing notes Bowel Incontinence: No Bladder Incontinence: No Posture kyphotic Neuromuscular (Tone, Coordination, Reflexes) grossly intact Sensory Vision: Functional Hearing: Impaired Transfers Roll Left to Right (QC): 6 Sit to Lying (QC): 6 Lying to Sitting/Side of Bed(Q: 6 Sit to Stand (QC): 6 Chair/Nwp-xo-Libox Xfer(QC): 6 Gait Does the Patient Walk?: Yes Mode of Locomotion: Walk Anticipated Mode of Locomotion: Walk Walk 10 feet (QC): 5 Distance: 10' Gait Assistive Device: None Balance Sitting Static: Normal Sitting Dynamic: Normal Standing Static: Normal Standing Dynamic: Normal Assessment/Needs 80 y.o. female, will be seen short term by skilled PT to address functional strength and mobility ensure safe return to home at maximum LOF. 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: Fair PT Water Restoration Technician Goals Water Restoration Technician Goals PT Water Restoration Technician Goals Time Frame: Jul 22, 2020 Roll Left & Right (QC): 6 Sit to Lying (QC): 6 Lying-Sitting on Side/Bed(QC): 6 Sit to Stand (QC): 6 Chair/Rly-wq-Erugr Xfer(QC): 6 Toilet Transfer (QC): 6 Does the Patient Walk: Yes Walk 10 feet (QC): 6 Walk 50ft with 2 Turns (QC): 6 Walk 150 ft (QC): 6 PT Plan Problem List Problem List: Activity Tolerance Treatment/Plan Treatment Plan: Continue Plan of Care Treatment Plan: Bed Mobility, Education, Functional Activity Tawanna, Functional Strength, Gait, Safety, Therapeutic Exercise, Transfers Treatment Duration: Jul 22, 2020 Frequency: 6 times per week Estimated Hrs Per Day: .25 hour per day Patient and/or Family Agrees t: Yes Discharge Recommendations Therapy Discharge Recommendati: Home & Family Time/GCodes Time In: 1300 Time Out: 1325 Total Billed Treatment Time: 25 Total Billed Treatment 1 visit EVMod 25 min LESLEY MURRAY PT Jul 14, 2020 14:03
[2020-07-14] MEDS ORDERED: FUROSEMIDE 40 MG/4 ML INJ (LASIX) IVP NR (14:15)
[2020-07-14] MEDS ORDERED: KCL 20 MEQ TAB (K-DUR) PO NR (14:15)
[2020-07-14] MEDS ORDERED: HALOPERIDOL 5 MG/ML (HALDOL) VIAL IM PRN (16:00)
[2020-07-14] MEDS: RT-ALBUTEROL/IPRATROPIUM 3 ML (DUONEB) VIAL INH SCH ×2 (16:23→18:35)
[2020-07-14] MEDS: VANCOMYCIN 1 GM/NS 250 ML IVPB IV SCH ×2 (17:23)
[2020-07-14] MEDS ORDERED: warFARin 3 MG (COUMADIN) TAB PO SCH (21:00)
[2020-07-15] MEDS: LACTATED RINGERS 1,000 ML IV SCH (00:09)
[2020-07-15 00:55] VITALS: BP 132/68
[2020-07-15] MEDS: RT-ALBUTEROL/IPRATROPIUM 3 ML (DUONEB) VIAL INH SCH ×4 (02:15→19:36)
[2020-07-15] MEDS: CEFEPIME 1,000 MG/SWFI 10 ML IV PUSH IV SCH ×8 (02:29→21:07)
[2020-07-15 04:00] VITALS: BP 142/73
[2020-07-15 04:54] LABS: BASOPHILS % (AUTO) 0 % (0-10); EOSINOPHILS # (AUTO) 0.1 10^3/uL (0.0-0.3); EOSINOPHILS % (AUTO) 2 % (0-10); HEMATOCRIT 29 % (35-52); HEMOGLOBIN 9.1 g/dL (11.5-16.0); LYMPHOCYTES % (AUTO) 14 % (12-44); MEAN CORPUSCULAR HEMOGLOBIN 27 pg (25-34); MEAN CORPUSCULAR HGB CONC 31 g/dL (32-36); MEAN CORPUSCULAR VOLUME 86 fL (80-99); MEAN PLATELET VOLUME 9.7 fL (9.0-12.2); MONOCYTES # (AUTO) 0.7 10^3/uL (0.0-1.0); MONOCYTES % (AUTO) 9 % (0-12); NEUTROPHILS # (AUTO) 5.2 10^3/uL (1.8-7.8); NEUTROPHILS % (AUTO) 74 % (42-75); PLATELET COUNT 245 10^3/uL (130-400)
[2020-07-15 05:09] LABS: ALBUMIN 3.1 GM/DL (3.2-4.5)
[2020-07-15 05:10] LABS: CHLORIDE 105 MMOL/L (98-107); POTASSIUM 3.6 MMOL/L (3.6-5.0); SODIUM 139 MMOL/L (135-145)
[2020-07-15 05:11] LABS: CALCIUM 8.9 MG/DL (8.5-10.1)
[2020-07-15 05:12] LABS: GLUCOSE 103 MG/DL (70-105); TOTAL PROTEIN 6.1 GM/DL (6.4-8.2)
[2020-07-15 05:13] LABS: CARBON DIOXIDE 23 MMOL/L (21-32)
[2020-07-15 05:14] LABS: BILIRUBIN,TOTAL 0.6 MG/DL (0.1-1.0)
[2020-07-15 05:15] LABS: ALKALINE PHOSPHATASE 86 U/L (40-136)
[2020-07-15 05:16] LABS: CREATININE SERUM 0.62 MG/DL (0.60-1.30); GFR ESTIMATED > 60
[2020-07-15 05:17] LABS: BUN/CREATININE RATIO 11
[2020-07-15 05:19] LABS: ALANINE AMINOTRANSFERASE 9 U/L (0-55)
[2020-07-15] MEDS: PANTOPRAZOLE 40 MG (PROTONIX) TAB PO SCH (06:39)
[2020-07-15] MEDS: KCL 20 MEQ TAB (K-DUR) PO SCH (06:39)
[2020-07-15] MEDS: FUROSEMIDE 40 MG/4 ML INJ (LASIX) IVP SCH (08:20)
[2020-07-15] MEDS: CARVEDILOL 12.5 MG (COREG) TABLET PO SCH ×2 (08:21→18:15)
[2020-07-15] MEDS: VITAMIN D3 25 MCG (1,000 UNITS) TABLET PO SCH (08:21)
[2020-07-15] MEDS: CYANOCOBALAMIN 1,000 MCG (VITAMIN B-12) TABLET PO SCH (08:21)
[2020-07-15] MEDS: ASPIRIN E.C. 81 MG (ECOTRIN) TAB PO SCH (08:21)
[2020-07-15] MEDS: TOLTERODINE LA 4 MG (DETROL) CAP PO SCH (08:21)
[2020-07-15] MEDS: CLOPIDOGREL 75 MG (PLAVIX) TABLET PO SCH (08:21)
[2020-07-15] MEDS: lisINopril 20 MG (PRINIVIL) TABLET PO SCH (08:21)
[2020-07-15 08:54] VITALS: BP 136/89
--- NOTE | 2020-07-15 09:20 | Occupational Ther Daily Note ---
OT Current Status-Daily Note Subjective Pt in recliner upon entry. playground aide present. Pt states completed BM on BSC, did not wipe self. Pt agrees to OT tx, states minimal pain in ribs during coughing. Mental Status/Objective Patient Orientation: Person, Place, Situation, Normal For Age Attachments: IV, Oxygen, Telemetry ADL-Treatment Therapy Code Descriptions/Definitions Functional [place] Measure: 0=Not Assessed/NA 4=Minimal Assistance 1=Total Assistance 5=Supervision or Setup 2=Maximal Assistance 6=Modified [place] 3=Moderate Assistance 7=Complete IndependenceSCALE: Activities may be completed with or without assistive devices. 6-Szfpyodqhy-zqqnwam completes the activity by him/herself with no assistance from a helper. 5-Set-up or Clean-up Assistance-helper sets up or cleans up; patient completes activity. [place] assists only prior to or following the activity. 4-Supervision or Touching Assistance-helper provides verbal cues and/or touching/steadying and/or contact guard assistance as patient completes activity. Assistance may be provided throughout the activity or intermittently. 3-Partial/Moderate Assistance-helper does LESS THAN HALF the effort. [place] lifts, holds or supports trunk or limbs, but provides less than half the effort. 2-Substantial/Maximal Assistance-helper does MORE THAN HALF the effort. [place] lifts or holds trunk or limbs and provides more than half the effort. 3-Juyeokbuu-fseron does ALL the effort. Patient does none of the effort to complete the activity. Or, the assistance of 2 or more helpers is required for the patient to complete the activity. If activity was not attempted, code reason: 7-Patient Refused. 9-Not Applicable-not attempted and the patient did not perform the activity before the current illness, exacerbation or injury. 10-Not Attempted due to Environmental Limitations-(lack of equipment, weather restraints, etc.). 88-Not Attempted due to Medical Conditions or Safety Concerns. Eating (QC): 6 Oral Hygiene (QC): 7 (states does not brush teeth) Bathing Location: L Arm, R Arm, L Upper Leg, R Upper Leg, L Lower Leg (including foot), R Lower Leg (including foot), Chest, Abdomen, Perineal Area Shower/Bathe Self (QC): 5 (completes all areas with s/u. ) Upper Body Dressing (QC): 3 (min A gown donning.) Lower Body Dressing (QC): 7 (denies underwear donning.) On/Off Footwear: 6 (completes with IND) Toileting Hygiene (QC): 3 (min A per pt/ doctor of nursing practice.) Other Treatment Pt agrees to sponge bath, completes as outlined above. Pt sit to stand to complete endurance/ functional activity tolerance. Pt completes 3 min stance with no SOB noted. Pt then receives phone call and requests back to chair. Pt answers, legs elevated, blanket donned, call light in reach, all needs met. Education OT Patient Education: Modified ADL techniques, Purpose of tx/functional activities, Safety issues Teaching Recipient: Patient Teaching Methods: Demonstration, Discussion Response to Teaching: Verbalize Understanding, Return Demonstration OT Custodial Goals Chief Crew Scheduler Goals Time Frame: Jul 21, 2020 Eating (QC): 6 Oral Hygiene (QC): 6 Toileting Hygiene (QC): 6 Shower/Bathe Self (QC): 5 Upper Body Dressing (QC): 6 Lower Body Dressing (QC): 4 On/Off Footwear (QC): 6 Additional Goals: 1-Demonstrate ADL Tasks, 2-Verbalize Understanding, 3- ImproveStrength/Tawanna 1=Demonstrate adherence to instructed precautions during ADL tasks. 2=Patient will verbalize/demonstrate understanding of assistive devices/modifications for ADL. 3=Patient will improve strength/tolerance for activity to enable patient to perform ADL's. OT Education/Plan Problem List/Assessment Assessment: Decreased Activ Tolerance, Decreased UE Strength, Impaired Funct Balance, Impaired I ADL's, Impaired Self-Care Skills Discharge Recommendations Plan/Recommendations: Continue POC Therapy Discharge Recommendati: Home & Family, Post Acute OT Treatment Plan/Plan of Care Treatment,Training & Education: Yes Patient would benefit from OT for education, treatment and training to promote independence in ADL's, mobility, safety and/or upper extremity function for ADL's. Plan of Care: ADL Retraining, Functional Mobility, UE Funct Exercise/Act Treatment Duration: Jul 21, 2020 Frequency: 5 times per week Estimated Hrs Per Day: .25 hour per day Agreement: Yes 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: Fair Time/GCodes Start Time: 08:45 Stop Time: 09:10 Total Time Billed (hr/min): 25 Billed Treatment Time 1, ADL 2 (25) FARHAN SAINI OTR Jul 15, 2020 09:20
--- NOTE | 2020-07-15 11:01 | Progress Note - Hospitalist ---
Subjective HPI/CC On Admission Date Seen by Provider: Jul 15, 2020 Time Seen by Provider: 10:00 CC: Dyspnea HPI: This is an 80yoWF clinic patient of [facility] who is known to me from prior and multiple and recent hospital stays of which she declines to go to a NH who presents to the ER with dyspnea and found to have volume overload and elevated troponin and concerning signs for PNA so she was placed on Tely and abx and Cardiology was consulted along with COVID testing. Currently she is dyspneic and told me about the recent ER visit from constipation she had which finally completely resolved and now she is having loose stools. Overall she has declined significantly since last seen and really needs to go to a NH. Subjective/Events-last exam Pt doing better Back on baseline oxygen Less SOB Gave her Haldol 1 mg IM yesterday for complete emotional breakdown and it seems to have reset her Pt insisting on going home so will have social work explore that Review of Systems General: Fatigue, Malaise Pulmonary: Dyspnea Neurological: Weakness, Incoordination Focused Exam Lactate Level 07/13/20 12:20: Lactic Acid Level 1.61 Time of Focused Exam: 16:19 Objective Exam Vital Signs Vital Signs Date Time Temp Pulse Resp B/P (MAP) Pulse Ox O2 Delivery O2 Flow Rate FiO2 07/15/20 19:53 36.0 85 20 135/85 (102) 98 Nasal Cannula 2.00 07/14/20 09:23 28 Capillary Refill : Less Than 3 Seconds General Appearance: No Apparent Distress, WD/WN, Chronically ill Respiratory: Chest Non Tender, Lungs Clear, Normal Breath Sounds, No Accessory Muscle Use, No Respiratory Distress Cardiovascular: Regular Rate, Rhythm, No Edema, No Gallop, No JVD, No Murmur, Normal Peripheral Pulses Neurologic/Psychiatric: Alert, Oriented x3, No Motor/Sensory Deficits, Normal Mood/Affect Results/Procedures Lab Laboratory Tests 07/15/20 04:25 Patient resulted labs reviewed. Assessment/Plan Assessment and Plan Assess & Plan/Chief Complaint Assessment: Chest pain Pneumonia CHF Anxiety Severe debility Plan: Xanax for anxiety PT/OT 07/15/20: Improved today Dispo pending Appears closer to Hospice enrollment Diagnosis/Problems Diagnosis/Problems (1) Chest pain Status: Acute Qualifiers: Chest pain type: unspecified Qualified Codes: R07.9 - Chest pain, unspecified (2) Pneumonia Status: Acute Qualifiers: Pneumonia type: due to unspecified organism Laterality: unspecified laterality Lung location: unspecified part of lung Qualified Codes: J18.9 - Pneumonia, unspecified organism (3) Stented coronary artery (4) Pacemaker (5) PVD (peripheral vascular disease) (6) CAD (coronary artery disease) (7) Atrial fibrillation (8) Acute on chronic heart failure Status: Acute Clinical Quality Measures DVT/VTE Risk/Contraindication: Risk Factor Score Per Nursin RFS Level Per Nursing on Admit: 4+=Very High SIXTO ANAND DO Jul 15, 2020 11:01
--- NOTE | 2020-07-15 11:17 | Pulmonary Consultation ---
History of Present Illness History of Present Illness Date Seen by Provider: Jul 15, 2020 Time Seen by Provider: 11:14 Date of Admission Allergies and Home Medications Allergies Coded Allergies: Penicillins (Unverified Allergy, Unknown, 11/17/19) Home Medications Acetaminophen 325 Mg Tablet, 650 MG PO Q6H PRN for PAIN-MILD (1-4), (Reported) Aspirin 81 Mg Tablet.dr, 81 MG PO DAILY, (Reported) Atorvastatin Calcium 40 Mg Tablet, 40 MG PO DAILY, (Reported) Calcium Carbonate 600 Mg Tablet, 600 MG PO Q48H, (Reported) Carvedilol 12.5 Mg Tablet, 12.5 MG PO BID WITH MEALS Prescribed by: SIXTO ANAND on 07/01/20 1104 Cholecalciferol (Vitamin D3) 50 Mcg Capsule, 50 MCG PO DAILY, (Reported) Clopidogrel Bisulfate 75 Mg Tablet, 75 MG PO DAILY, (Reported) Cyanocobalamin 100 Mcg Tablet, 1,000 MCG PO DAILY, (Reported) Diltiazem HCl 180 Mg Cap.er.24h, 180 MG PO DAILY, (Reported) Lisinopril 20 Mg Tablet, 20 MG PO DAILY, (Reported) Nitroglycerin 0.4 Mg Tab.subl, 0 MG SL UD PRN for CHEST PAIN (ANGINA) Prescribed by: SIXTO ANAND on 07/01/20 1104 Pantoprazole Sodium 40 Mg Tablet.dr, 40 MG PO DAILY, (Reported) Polyethylene Glycol 3350 119 Gm Powder, 17 GM PO DAILY PRN for CONSTIPATION-2ND LINE, (Reported) Pramoxine HCl 15 Gm Foam, 15 GM TP Q1HR PRN for PAIN-BREAKTHROUGH Prescribed by: AVA AVILA on 07/08/20 1311 Tolterodine Tartrate 4 Mg Cap.er.24h, 4 MG PO DAILY, (Reported) Tramadol HCl 50 Mg Tablet, 50 MG PO Q6H PRN for PAIN-MODERATE (5-7), (Reported) Warfarin Sodium 1 Mg Tablet, 1 MG PO SUN,MON, (Reported) TAKES AT BEDTIME 1.5MG PO ON MON,TUES,THURS, FRI AND SAT 1MG ON SUN,WED Warfarin Sodium 1 Mg Tablet, 1.5 MG PO MO,,ДМИТРИЙ,FRI,SAT, (Reported) TAKES AT BEDTIME 1.5MG PO ON MON,TUES,THURS, FRI AND SAT 1MG ON SUN,WED Past Dftwetf-Fsmmyz-Haqass Hx Past Med/Social Hx: Reviewed Nursing Past Med/Soc Hx, Reviewed and Corrections made Patient Social History Alcohol Use: Denies Use Recreational Drug Use: No Smoking Status: Never a Smoker 2nd Hand Smoke Exposure: No Recent Foreign Travel: No Contact w/Someone Who Travel: No Recent Infectious Disease Expo: No Recent Hopitalizations: No Immunizations Up To Date Tetanus Booster (TDap): Unknown PED Vaccines UTD: Yes Date of Pneumonia Vaccine: Jul 08, 2019 Seasonal Allergies Seasonal Allergies: No Past Medical History Surgeries: Yes (SEE BELOW) Adenoidectomy, Cardiac, Coronary Stent, Pacemaker, Vascular Surgery Respiratory: Yes (CHRONIC COUGH; PNEUMONIA X1; BRONCHITIS ) Pneumonia, Sleep Apnea Cardiac: Yes (PACEMAKER 2016;CARDIAC STENTS X 4; RIGHT CAROTID STENT X 1) Atrial Fibrillation, Coronary Artery Disease, High Cholesterol, Hypertension Neurological: Yes (CVA 2016--NO RESIDUAL EFFECTS; STATES ONLY SYMPTOM WAS HEADACHE. ) Stroke MANAGING PRINCIPAL History: Menopausal Genitourinary: No Gastrointestinal: No Musculoskeletal: Yes Arthritis Endocrine: No HEENT: No Cancer: No Psychosocial: No Integumentary: No Blood Disorders: No Family Medical History PSH: -CARDIAC CATHS--STENTS X 4 -RIGHT CAROTID STENT X 1 -PACEMAKER 2016 Review of Systems Time Seen by Provider: 11:17 Sepsis Event Evaluation Height, Weight, BMI Height: '" Weight: lbs. oz. kg; 26.56 BMI Method: Exam Exam Vital Signs Date Time Temp Pulse Resp B/P (MAP) Pulse Ox O2 Delivery O2 Flow Rate FiO2 07/15/20 09:27 94 Nasal Cannula 2.00 07/15/20 08:54 36.5 116 20 136/89 (105) 95 Nasal Cannula 2.00 07/15/20 08:00 Nasal Cannula 2.00 07/15/20 06:45 101 07/15/20 04:00 36.0 85 28 142/73 (96) 96 Nasal Cannula 2.00 07/15/20 02:17 95 Nasal Cannula 2.00 07/15/20 01:00 86 07/15/20 00:55 36.4 79 24 132/68 (89) 97 Nasal Cannula 2.00 07/14/20 21:00 Nasal Cannula 2.00 07/14/20 20:30 36.2 90 22 138/82 (100) 92 Nasal Cannula 2.00 07/14/20 19:00 94 07/14/20 18:35 91 Nasal Cannula 2.00 07/14/20 16:30 36.4 82 22 158/73 (101) 91 Nasal Cannula 1.00 07/14/20 12:36 81 07/14/20 11:45 36.2 74 18 127/59 (81) 94 Nasal Cannula 3.00 I & O 07/15/20 07:00 Intake Total 2240 ml Output Total 2250 ml Balance -10 ml Height & Weight Height: '" Weight: lbs. oz. kg; 26.56 BMI Method: General Appearance: No Apparent Distress, WD/WN, Anxious, Chronically ill HEENT: PERRL/EOMI, Normal ENT Inspection, Pharynx Normal, Moist Mucous Membra sammie Neck: Full Range of Motion, Normal Inspection, Non Tender, Supple, Carotid Bruit Respiratory: Chest Non Tender, Lungs Clear, No Accessory Muscle Use, No Respiratory Distress, Decreased Breath Sounds Cardiovascular: Regular Rate, Rhythm, No Edema, No Gallop, No JVD, No Murmur, Normal Peripheral Pulses Capillary Refill: Less Than 3 Seconds Peripheral Pulses: 2+ Radial Pulses (R), 2+ Radial Pulses (L) Extremity: Normal Capillary Refill, Normal Inspection, Normal Range of Motion, Non Tender, No Calf Tenderness, No Pedal Edema Neurologic/Psychiatric: Alert, Oriented x3, No Motor/Sensory Deficits, Normal Mood/Affect Skin: Normal Color, Warm/Dry Lymphatic: No Adenopathy Results Lab Laboratory Tests 07/13/20 12:20 07/14/20 03:05 07/15/20 04:25 Assessment/Plan Assessment/Plan Pneumonia -Currently on Vanco and Cefepime -Cultures are negative thus far. CHFAE -Check BNP -Echo of 11/18/19: LVEF 40-45%, -Cardiology consulted. Anemia -Monitor Debility Anxiety MOISÉS JACINTO DO Jul 15, 2020 11:17
--- NOTE | 2020-07-15 12:04 | Cardiology Progress Note ---
Subjective Date Seen by Provider: Jul 15, 2020 Time Seen by Provider: 11:05 Subjective/Events-last exam Patient sitting up in bed, denies any chest pain, palpitations or dizziness. Review of Systems General: No Chills, No Night Sweats; Fatigue; No Malaise, No Appetite, No Other HEENT: No Head Aches, No Visual Changes, No Eye Pain, No Ear Pain, No Dysphasia, No Sinus Congestion, No Post Nasal Drip, No Sore Throat, No Other Pulmonary: Dyspnea; No Cough, No Pleuritic Chest Pain, No Other Cardiovascular: No: Chest Pain, Palpitations, Orthopnea, Paroxysmal Noc. Dyspnea, Edema, Lt Headedness, Other Focused Exam Lactate Level 07/13/20 12:20: Lactic Acid Level 1.61 Time of Focused Exam: 16:19 Objective-Cardiology Exam Last Set of Vital Signs Vital Signs 07/14/20 07/15/20 07/15/20 09:23 12:26 12:43 Temp 36.4 Pulse 86 Resp 20 B/P (MAP) 102/66 (78) Pulse Ox 96 O2 Delivery Nasal Cannula O2 Flow Rate 2.00 FiO2 28 Capillary Refill : Less Than 3 Seconds I&O Intake and Output 07/15/20 00:00 Intake Total 2760 ml Output Total 2200 ml Balance 560 ml Intake Oral 1740 ml IV Total 1020 ml Output Urine Total 2200 ml # Voids 3 General: Alert, Oriented X3, Cooperative HEENT: Atraumatic, PERRLA Neck: Supple Lungs: Other (decreased breath sounds bibasilarly) Heart: Normal S1, Normal S2, Other (irregularly irregular) Abdomen: Normal Bowel Sounds, Soft Extremities: No Edema Skin: No Rashes, No Significant Lesion Neuro: Normal Speech, Cranial Nerves 3-12 NL Psych/Mental Status: Mental Status NL, Mood NL Results Lab Laboratory Tests 07/15/20 04:25 A/P-Cardiology Admission Diagnosis Pneumonia Chronic afib CAD Acute on chronic CHF Assessment/Plan Pneumonia, management per medical services. Acute, decompensated, systolic and diastolic CHF Echo of 11/18/19: LVEF 40-45%, apical and basal inf hypokinesis, biatrial enlargement, mod MR, mod to sev TR, RVSP 35 mmHg. Maintained on JAGDEEP-I, beta deisy. Continue to diurese. Mild troponin elevation, likely type 2 PA due to CHF CAD. Card cath of Jun 28, 2020: The left circumflex artery had a near total occlusion that was reduced to less than 50% with balloon angioplasty. The left anterior descending artery is known to have Synergy 3.5 x 28 and 3.0 x 16 mm stents that have have recurrent stent restenoses and that were again exhibiting 90% stenosis. This was reduced to less than 50% with balloon angioplasty. The right coronary artery is known to have Synergy 4.0 x 38 and 3.5 x 38 stents that were patent. All vessels had diffuse moderate disease. Ischemic cardiomyopathy with apical akinesis to dyskinesis and left ventricular ejection fraction approximately 40%. Elevated left ventricular end-diastolic pressure. Maintained on ASA and Plavix Chronic A Fib, slightly tachycardic, continue to monitor. Maintained on Coumadin. INR is therapeutic S/p Medtronic dual chamber pacemaker in 2017 at ([facility] - Dr Pierce). Functioning normally per interrogation of February 15, 2020 Carotid artery stenosis. 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 She does not recall the date of her stroke Gen weakness and limited ambulation Poor memory GERD/PUD Patient was seen and evaluated with Susan, examination performed, management plan was discussed, agree with the current scribed note, I made few changes to the note using Italic font Patient was seen and evaluated, laying down in bed comfortably, still having some shortness of breath, irregular rhythm Maintained on Coumadin for oral anticoagulation, continue to monitor INR She had acute decompensation of the heart failure responding to diuretics. Continue to monitor Continue with aspirin and Plavix and monitor closely. Clinical Quality Measures DVT/VTE Risk/Contraindication: Risk Factor Score Per Nursin RFS Level Per Nursing on Admit: 4+=Very High SUSAN LOVE Jul 15, 2020 12:04 MACARIO CARO MD Jul 15, 2020 15:01
[2020-07-15 12:26] VITALS: BP 102/66
--- NOTE | 2020-07-15 13:20 | NUR ---
CM/SS: Visited with pt as to her return to the hospital and her plan for discharge Plan: Pt is from home and would like to return there. Pt is not as open to a care home facility at this time. Summary: Pt reports needing to come back to the hospital. She report managing fairly ok home previously, with home care. Discuss her managing at home. Pt reports she was getting along ok and then she did not feel well and was weak and thought she may of had the virus and needed to come to the hospital. Pt does report her is recovering from cancer surgery. She does give this worker her daughters phone number, however the number is disconnected. Pt still feels as if she wants to return home and shares they were managing. This worker is not 100% how well they were managing This worker will follow up.
--- NOTE | 2020-07-15 13:37 | NUR ---
RD ASSESSMENT PMHx: afib; CAD; hypercholesterolemia; HTN PT INTERACTION: Pt was awake and pleasant during nutrition assessment. Pt states current appetite is "so-so" and has been this way for some time. Note avg PO intake 31% x1d, per chart review. Pt states following a vegetarian diet because her "taste buds have changed so much that I don't like the taste of meat." Pt states no issue with chewing/swallowing food. Note pt has poor dentition, per visual assessment. Pt states recent issues with constipation, and that her last BM was 07/15. Note pt currently on bowel regimen of miralax PRN. Pt states no recent wt changes. Note recent 2# wt loss x5mon, per chart review. ABNORMAL NUTRITION-RELATED LAB VALUES LOW: Pro 6.1; alb 3.1 HIGH: Est. kcal needs: 1450 kcal | 20 kcal/kg Est. Pro needs: 72 g Pro | 1.0 g Pro/kg PES STATEMENT: Inadequate oral intake (NI-2.1) related to loss of appetite | constipation as evidenced by pt interview | avg PO intake 31% x1d INTERVENTION: Continue with current diet order of 2000mg Na diet, with modifier of vegetarian options. Add Ensure Clear to meals TID, for increased kcal intake and for pt tolerance. Pt states not preferring regular Ensure. Clear provides 250 kcal and 8 g Pro per serving. Will continue to follow and reassess as pt needs, intake, and status change. Agustin Tony, MS RD LD
[2020-07-15 14:43] LABS: PROTHROMBIN TIME PATIENT 31.1 SEC (12.2-14.7)
--- NOTE | 2020-07-15 15:24 | Physical Therapy Daily Note ---
PT Daily Note-Current Subjective Pt laying Supine in bed. Pt agrees to PT for Supine Ex. Pain Numeric Pain Scale: 5-Moderate Pain Location: Dorsal Location Body Site: Neck Pain Description: Ache Mental Status Patient Orientation: Person, Place, Situation Attachments: Oxygen Transfers SCALE: Activities may be completed with or without assistive devices. 4-Tlwchoqfxl-cruxwuh completes the activity by him/herself with no assistance from a helper. 5-Set-up or Clean-up Assistance-helper sets up or cleans up; patient completes activity. [place] assists only prior to or following the activity. 4-Supervision or Touching Assistance-helper provides verbal cues and/or touching/steadying and/or contact guard assistance as patient completes activity. Assistance may be provided throughout the activity or intermittently. 3-Partial/Moderate Assistance-helper does LESS THAN HALF the effort. [place] lifts, holds or supports trunk or limbs, but provides less than half the effort. 2-Substantial/Maximal Assistance-helper does MORE THAN HALF the effort. [place] lifts or holds trunk or limbs and provides more than half the effort. 4-Fgfkxuhkw-yxhhdf does ALL the effort. Patient does none of the effort to complete the activity. Or, the assistance of 2 or more helpers is required for the patient to complete the activity. If activity was not attempted, code reason: 7-Patient Refused. 9-Not Applicable-not attempted and the patient did not perform the activity before the current illness, exacerbation or injury. 10-Not Attempted due to Environmental Limitations-(lack of equipment, weather restraints, etc.). 88-Not Attempted due to Medical Conditions or Safety Concerns. Exercises Supine Ex: Ankle pumps, Quad Set, Glut sets, Heel Slides, Hip abd/add Supine Reps: 15 Treatments Pt completes Supine Ex in bed. SENIOR NUCLEAR MEDICINE TECHNOLOGIST also discusses benefits to proper positioning for avoidance of pressure sores. All needs met, call light in hand. Assessment Current Status: Fair Progress Pt fatigues easily and declines need to reposition. PT Security Patrol Officer Goals [facility] Goals PT [facility] Goals Time Frame: Jul 22, 2020 Roll Left & Right (QC): 6 Sit to Lying (QC): 6 Lying-Sitting on Side/Bed(QC): 6 Sit to Stand (QC): 6 Chair/Zyc-mf-Kviee Xfer(QC): 6 Toilet Transfer (QC): 6 Does the Patient Walk: Yes Walk 10 feet (QC): 6 Walk 50ft with 2 Turns (QC): 6 Walk 150 ft (QC): 6 PT Plan Problem List Problem List: Activity Tolerance, Functional Strength Treatment/Plan Treatment Plan: Continue Plan of Care Treatment Plan: Bed Mobility, Education, Functional Activity Tawanna, Functional Strength, Gait, Safety, Therapeutic Exercise, Transfers Treatment Duration: Jul 22, 2020 Frequency: 6 times per week Estimated Hrs Per Day: .25 hour per day Patient and/or Family Agrees t: Yes Safety Risks/Education Patient Education: Correct Positioning, Safety Issues Teaching Recipient: Patient Teaching Methods: Discussion Response to Teaching: Reinforcement Needed Time/GCodes Time In: 1435 Time Out: 1458 Total Billed Treatment Time: 23 Total Billed Treatment 1, EXx2 (23m) BAMBI FALCON PTA Jul 15, 2020 15:24
[2020-07-15 16:31] VITALS: BP 111/72
[2020-07-15] MEDS: VANCOMYCIN 1 GM/NS 250 ML IVPB IV SCH ×2 (18:15)
[2020-07-15 19:53] VITALS: BP 135/85
[2020-07-15] MEDS ORDERED: warFARin 1 MG (COUMADIN) TAB PO SCH (21:00)
[2020-07-15] MEDS: ACETAMINOPHEN 325 MG TABLET PO PRN (21:07)
[2020-07-15] MEDS: CALCIUM CARBONATE 600 MG (CALCARB) TAB PO SCH (21:07)
[2020-07-16 00:01] VITALS: BP 129/75
[2020-07-16] MEDS: CEFEPIME 1,000 MG/SWFI 10 ML IV PUSH IV SCH ×4 (02:34→08:59)
[2020-07-16] MEDS: RT-ALBUTEROL/IPRATROPIUM 3 ML (DUONEB) VIAL INH SCH ×2 (03:33→07:35)
[2020-07-16 04:29] VITALS: BP 127/62
[2020-07-16 05:27] LABS: BASOPHILS % (AUTO) 0 % (0-10); EOSINOPHILS # (AUTO) 0.2 10^3/uL (0.0-0.3); EOSINOPHILS % (AUTO) 5 % (0-10); HEMATOCRIT 29 % (35-52); HEMOGLOBIN 9.2 g/dL (11.5-16.0); LYMPHOCYTES # (AUTO) 1.1 10^3/uL (1.0-4.0); LYMPHOCYTES % (AUTO) 22 % (12-44); MEAN CORPUSCULAR HEMOGLOBIN 27 pg (25-34); MEAN CORPUSCULAR HGB CONC 32 g/dL (32-36); MEAN CORPUSCULAR VOLUME 85 fL (80-99); MEAN PLATELET VOLUME 9.3 fL (9.0-12.2); MONOCYTES # (AUTO) 0.5 10^3/uL (0.0-1.0); MONOCYTES % (AUTO) 11 % (0-12); NEUTROPHILS # (AUTO) 3.1 10^3/uL (1.8-7.8); NEUTROPHILS % (AUTO) 62 % (42-75); PLATELET COUNT 296 10^3/uL (130-400); WHITE BLOOD COUNT 4.9 10^3/uL (4.3-11.0)
[2020-07-16 05:42] LABS: INR 2.8 (0.8-1.4); PROTHROMBIN TIME PATIENT 29.6 SEC (12.2-14.7)
[2020-07-16 05:47] LABS: ALANINE AMINOTRANSFERASE 16 U/L (0-55); ALKALINE PHOSPHATASE 82 U/L (40-136); BILIRUBIN,TOTAL 0.6 MG/DL (0.1-1.0); BUN/CREATININE RATIO 12; CALCIUM 8.9 MG/DL (8.5-10.1); CARBON DIOXIDE 29 MMOL/L (21-32); CHLORIDE 102 MMOL/L (98-107); CREATININE SERUM 0.67 MG/DL (0.60-1.30); GFR ESTIMATED > 60; GLUCOSE 105 MG/DL (70-105); POTASSIUM 3.3 MMOL/L (3.6-5.0); SODIUM 141 MMOL/L (135-145)
[2020-07-16] MEDS: PANTOPRAZOLE 40 MG (PROTONIX) TAB PO SCH (06:50)
[2020-07-16] MEDS: KCL 20 MEQ TAB (K-DUR) PO SCH (06:50)
[2020-07-16 07:26] VITALS: BP 127/80
--- NOTE | 2020-07-16 08:46 | Pulmonary Progress Note ---
Subjective Time Seen by a Provider: 08:44 Sepsis Event Evaluation Height, Weight, BMI Height: '" Weight: lbs. oz. kg; 26.56 BMI Method: Focused Exam Lactate Level 07/13/20 12:20: Lactic Acid Level 1.61 Time of Focused Exam: 16:19 Exam Exam Vital Signs Date Time Temp Pulse Resp B/P (MAP) Pulse Ox O2 Delivery O2 Flow Rate FiO2 07/16/20 07:35 96 Nasal Cannula 2.00 07/16/20 07:26 36.2 60 18 127/80 (96) 95 Nasal Cannula 2.00 07/16/20 04:29 36.2 72 20 127/62 (83) 94 Nasal Cannula 2.00 07/16/20 03:33 94 Nasal Cannula 2.00 07/16/20 00:59 76 07/16/20 00:01 36.3 81 20 129/75 (93) 95 Nasal Cannula 2.00 07/15/20 21:00 98 Nasal Cannula 2.00 07/15/20 19:53 36.0 85 20 135/85 (102) 98 Nasal Cannula 2.00 07/15/20 19:36 96 Nasal Cannula 2.00 07/15/20 19:01 67 07/15/20 16:31 36.3 69 20 111/72 (85) 96 Nasal Cannula 2.00 07/15/20 16:04 94 Nasal Cannula 2.00 07/15/20 12:43 86 07/15/20 12:26 36.4 65 20 102/66 (78) 96 Nasal Cannula 2.00 07/15/20 09:27 94 Nasal Cannula 2.00 07/15/20 08:54 36.5 116 20 136/89 (105) 95 Nasal Cannula 2.00 I & O 07/16/20 07:00 Intake Total 2660 ml Output Total 2710 ml Balance -50 ml Height & Weight Height: '" Weight: lbs. oz. kg; 26.56 BMI Method: General Appearance: No Apparent Distress, WD/WN, Chronically ill HEENT: PERRL/EOMI, Normal ENT Inspection, Pharynx Normal, Moist Mucous Membranes Neck: Full Range of Motion, Normal Inspection, Non Tender, Supple, Carotid Bruit Respiratory: Chest Non Tender, Lungs Clear, Normal Breath Sounds, No Accessory Muscle Use, No Respiratory Distress Cardiovascular: Regular Rate, Rhythm, No Edema, No Gallop, No JVD, No Murmur, Normal Peripheral Pulses Capillary Refill: Less Than 3 Seconds Peripheral Pulses: 2+ Radial Pulses (R), 2+ Radial Pulses (L) Extremity: Normal Capillary Refill, Normal Inspection, Normal Range of Motion, Non Tender, No Calf Tenderness, No Pedal Edema Neurologic/Psychiatric: Alert, Oriented x3, No Motor/Sensory Deficits, Normal Mood/Affect Skin: Normal Color, Warm/Dry Lymphatic: No Adenopathy Results Lab Laboratory Tests 07/15/20 04:25 07/16/20 05:08 Assessment/Plan Assessment/Plan Pneumonia -Currently on Cefepime -Cultures are negative thus far. -Currently on 2 liters of oxygen [facility] -Check BNP -Echo of 11/18/19: LVEF 40-45%, -Cardiology consulted. Anemia -Monitor Debility Anxiety MOISÉS JACINTO DO Jul 16, 2020 08:46
[2020-07-16] MEDS: ASPIRIN E.C. 81 MG (ECOTRIN) TAB PO SCH (08:59)
[2020-07-16] MEDS: CARVEDILOL 12.5 MG (COREG) TABLET PO SCH (08:59)
[2020-07-16] MEDS: CYANOCOBALAMIN 1,000 MCG (VITAMIN B-12) TABLET PO SCH (08:59)
[2020-07-16] MEDS: TOLTERODINE LA 4 MG (DETROL) CAP PO SCH (09:00)
[2020-07-16] MEDS: CLOPIDOGREL 75 MG (PLAVIX) TABLET PO SCH (09:00)
[2020-07-16] MEDS: VITAMIN D3 25 MCG (1,000 UNITS) TABLET PO SCH (09:00)
[2020-07-16] MEDS: lisINopril 20 MG (PRINIVIL) TABLET PO SCH (09:00)
[2020-07-16] MEDS: FUROSEMIDE 40 MG/4 ML INJ (LASIX) IVP SCH (09:00)
--- NOTE | 2020-07-16 09:28 | Occupational Ther Daily Note ---
OT Current Status-Daily Note Subjective Pt in bed upon entry. Pt states tired, no pain. Pt agrees to tx. Originally denies OOB, then when food comes in pt agrees to get to recliner to eat. Mental Status/Objective Patient Orientation: Person, Place, Situation Attachments: Oxygen ADL-Treatment Therapy Code Descriptions/Definitions Functional [place] Measure: 0=Not Assessed/NA 4=Minimal Assistance 1=Total Assistance 5=Supervision or Setup 2=Maximal Assistance 6=Modified [place] 3=Moderate Assistance 7=Complete IndependenceSCALE: Activities may be completed with or without assistive devices. 8-Lkosjdqdjo-zfxlbgz completes the activity by him/herself with no assistance from a helper. 5-Set-up or Clean-up Assistance-helper sets up or cleans up; patient completes activity. [place] assists only prior to or following the activity. 4-Supervision or Touching Assistance-helper provides verbal cues and/or touching/steadying and/or contact guard assistance as patient completes activity. Assistance may be provided throughout the activity or intermittently. 3-Partial/Moderate Assistance-helper does LESS THAN HALF the effort. [place] lifts, holds or supports trunk or limbs, but provides less than half the effort. 2-Substantial/Maximal Assistance-helper does MORE THAN HALF the effort. [place] lifts or holds trunk or limbs and provides more than half the effort. 7-Xvuortvdt-ellvfc does ALL the effort. Patient does none of the effort to co mplete the activity. Or, the assistance of 2 or more helpers is required for the patient to complete the activity. If activity was not attempted, code reason: 7-Patient Refused. 9-Not Applicable-not attempted and the patient did not perform the activity before the current illness, exacerbation or injury. 10-Not Attempted due to Environmental Limitations-(lack of equipment, weather restraints, etc.). 88-Not Attempted due to Medical Conditions or Safety Concerns. Eating (QC): 6 On/Off Footwear: 6 Toileting Hygiene (QC): 4 Toilet Transfer (QC): 4 Other Treatment Pt bed mob CGA (hand provided for assist). pt dons socks/ slippers, increase of cough upon sitting. Sit to stand SBA and ambulates to BSC, completes urination and leyda cleansing with SBA. Pt ambulates to recliner with education on benefits of sitting, sits with limited control. Pt's call light in reach, all needs met, food tray placed in front of pt. Education OT Patient Education: Correct positioning, Safety issues Teaching Recipient: Patient Teaching Methods: Demonstration, Discussion Response to Teaching: Verbalize Understanding, Return Demonstration OT Usp Goals Usp Goals Time Frame: Jul 21, 2020 Eating (QC): 6 Oral Hygiene (QC): 6 Toileting Hygiene (QC): 6 Shower/Bathe Self (QC): 5 Upper Body Dressing (QC): 6 Lower Body Dressing (QC): 4 On/Off Footwear (QC): 6 Additional Goals: 1-Demonstrate ADL Tasks, 2-Verbalize Understanding, 3- ImproveStrength/Tawanna 1=Demonstrate adherence to instructed precautions during ADL tasks. 2=Patient will verbalize/demonstrate understanding of assistive devices/modifications for ADL. 3=Patient will improve strength/tolerance for activity to enable patient to perform ADL's. OT Education/Plan Problem List/Assessment Assessment: Decreased Activ Tolerance, Decreased UE Strength, Impaired Bed M obility, Impaired I ADL's, Impaired Self-Care Skills Discharge Recommendations Plan/Recommendations: Continue POC Therapy Discharge Recommendati: Home & Family Treatment Plan/Plan of Care Treatment,Training & Education: Yes Patient would benefit from OT for education, treatment and training to promote independence in ADL's, mobility, safety and/or upper extremity function for ADL's. Plan of Care: ADL Retraining, Functional Mobility, UE Funct Exercise/Act Treatment Duration: Jul 21, 2020 Frequency: 5 times per week Estimated Hrs Per Day: .25 hour per day Agreement: Yes 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: Fair Time/GCodes Start Time: 08:05 Stop Time: 08:18 Total Time Billed (hr/min): 13 Billed Treatment Time 1, ADL (13) FARHAN SAINI OTR Jul 16, 2020 09:28
--- NOTE | 2020-07-16 09:42 | Cardiology Progress Note ---
Subjective Date Seen by Provider: Jul 16, 2020 Time Seen by Provider: 08:00 Subjective/Events-last exam Patient was seen at bedside laying down comfortably, denied any chest pain, breathing is better. Review of Systems General: No Chills, No Night Sweats; Fatigue; No Malaise, No Appetite, No Other HEENT: No Head Aches, No Visual Changes, No Eye Pain, No Ear Pain, No Dysphasia, No Sinus Congestion, No Post Nasal Drip, No Sore Throat, No Other Pulmonary: Dyspnea; No Cough, No Pleuritic Chest Pain, No Other Cardiovascular: No: Chest Pain, Palpitations, Orthopnea, Paroxysmal Noc. Dyspnea, Edema, Lt Headedness, Other Focused Exam Lactate Level 07/13/20 12:20: Lactic Acid Level 1.61 Time of Focused Exam: 16:19 Objective-Cardiology Exam Last Set of Vital Signs Vital Signs 07/14/20 07/16/20 07/16/20 09:23 07:26 07:35 Temp 36.2 Pulse 60 Resp 18 B/P (MAP) 127/80 (96) Pulse Ox 96 O2 Delivery Nasal Cannula O2 Flow Rate 2.00 FiO2 28 Capillary Refill : Less Than 3 Seconds I&O Intake and Output 07/16/20 00:00 Intake Total 2600 ml Output Total 2760 ml Balance -160 ml Intake Oral 1330 ml IV Total 1270 ml Output Urine Total 2760 ml # Urine Diapers 3 General: Alert, Oriented X3, Cooperative HEENT: Atraumatic, PERRLA Neck: Supple Lungs: Other (decreased breath sounds bibasilarly) Heart: Normal S1, Normal S2, Other (irregularly irregular) Abdomen: Normal Bowel Sounds, Soft Extremities: No Edema Skin: No Rashes, No Significant Lesion Neuro: Normal Speech, Cranial Nerves 3-12 NL Psych/Mental Status: Mental Status NL, Mood NL Results Lab Laboratory Tests 07/16/20 05:08 A/P-Cardiology Admission Diagnosis Pneumonia Chronic afib CAD Acute on chronic CHF Assessment/Plan Pneumonia, continue on cefepime, management per medical services. Acute, decompensated, systolic and diastolic CHF Echo of 11/18/19: LVEF 40-45%, apical and basal inf hypokinesis, biatrial enlargement, mod MR, mod to sev TR, RVSP 35 mmHg. Maintained on JAGDEEP-I, beta deisy. Improving, continue on diuretics and monitor Mild troponin elevation, likely type 2 DE due to CHF CAD. Card cath of Jun 28, 2020: The left circumflex artery had a near total occlusion that was reduced to less than 50% with balloon angioplasty. The left anterior descending artery is known to have Synergy 3.5 x 28 and 3.0 x 16 mm stents that have have recurrent stent restenoses and that were again exhibiting 90% stenosis. This was reduced to less than 50% with balloon angioplasty. The right coronary artery is known to have Synergy 4.0 x 38 and 3.5 x 38 stents that were patent. All vessels had diffuse moderate disease. Ischemic cardiomyopathy with apical akinesis to dyskinesis and left ventricular ejection fraction approximately 40%. Elevated left ventricular end-diastolic pressure. Maintained on ASA and Plavix Chronic A Fib, slightly tachycardic, continue to monitor. Maintained on Coumadin. INR is therapeutic S/p Medtronic dual chamber pacemaker in 2017 at ( [facility] - Dr Pierce). Functioning normally per interrogation of February 15, 2020 Carotid artery stenosis. 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 She does not recall the date of her stroke Gen weakness and limited ambulation Poor memory GERD/PUD Clinical Quality Measures DVT/VTE Risk/Contraindication: Risk Factor Score Per Nursin RFS Level Per Nursing on Admit: 4+=Very High MACARIO CARO MD Jul 16, 2020 09:42
--- NOTE | 2020-07-16 10:24 | Physical Therapy Daily Note ---
PT Daily Note-Current Subjective Patient agrees to PT. Mental Status Patient Orientation: Person, Time, Situation Attachments: Oxygen Transfers SCALE: Activities may be completed with or without assistive devices. 5-Nportgkzfa-nprkrfm completes the activity by him/herself with no assistance from a helper. 5-Set-up or Clean-up Assistance-helper sets up or cleans up; patient completes activity. [place] assists only prior to or following the activity. 4-Supervision or Touching Assistance-helper provides verbal cues and/or touching/steadying and/or contact guard assistance as patient completes activity. Assistance may be provided throughout the activity or intermittently. 3-Partial/Moderate Assistance-helper does LESS THAN HALF the effort. [place] lifts, holds or supports trunk or limbs, but provides less than half the effort. 2-Substantial/Maximal Assistance-helper does MORE THAN HALF the effort. [place] lifts or holds trunk or limbs and provides more than half the effort. 4-Gfphoptav-kgmpsv does ALL the effort. Patient does none of the effort to complete the activity. Or, the assistance of 2 or more helpers is required for the patient to complete the activity. If activity was not attempted, code reason: 7-Patient Refused. 9-Not Applicable-not attempted and the patient did not perform the activity before the current illness, exacerbation or injury. 10-Not Attempted due to Environmental Limitations-(lack of equipment, weather restraints, etc.). 88-Not Attempted due to Medical Conditions or Safety Concerns. Sit to Stand (QC): 5 Toilet Transfer (QC): 5 (patient able to toilet self without difficulty) Gait Training Does the Patient Walk?: Yes Distance: 125' Walk 10 feet (QC): 4 Walk 50 ft with 2 Turns(QC): 4 WAGE AND HOUR INVESTIGATOR with PT Exercises Seated Therapy Exercises: Ankle pumps, Long arc quads Seated Reps: 15 Assessment Patient is up in recline and tolerated treatment well. Plan dismissal this week per report. PT Snf Goals Evening Sitter Goals PT Evening Sitter Goals Time Frame: Jul 22, 2020 Roll Left & Right (QC): 6 Sit to Lying (QC): 6 Lying-Sitting on Side/Bed(QC): 6 Sit to Stand (QC): 6 Chair/Imq-er-Dgltb Xfer(QC): 6 Toilet Transfer (QC): 6 Does the Patient Walk: Yes Walk 10 feet (QC): 6 Walk 50ft with 2 Turns (QC): 6 Walk 150 ft (QC): 6 PT Plan Treatment/Plan Treatment Plan: Continue Plan of Care Treatment Plan: Bed Mobility, Education, Functional Activity Tawanna, Functional Strength, Gait, Safety, Therapeutic Exercise, Transfers Treatment Duration: Jul 22, 2020 Frequency: 6 times per week Estimated Hrs Per Day: .25 hour per day Patient and/or Family Agrees t: Yes Time/GCodes Time In: 931 Time Out: 946 Total Billed Treatment Time: 15 Total Billed Treatment 1 visit FA 15 min LESLEY MURRAY PT Jul 16, 2020 10:24
[2020-07-16] MEDS ORDERED: CEFD300C3 PO (11:26)
--- NOTE | 2020-07-16 11:28 | D/C HH Face to Face Order ---
D/C Face to Face Orders Reconcile Patient Problems Problems Reviewed?: Yes Instructions for Patient Home Health Patient Instructions/FollowUp: [facility] 1 week Physician to follow Patient: [facility] Discharge Diet for Home: Cardiac Diet, Coumadin Patient Diet Patient Problems: PNA CHF AF Patient Data-Allergies,Ht & Wt Patient Allergies: Coded Allergies: Penicillins (Unverified Allergy, Unknown, 11/17/19) Home Health Need/Face to Face Date of Face to Face: Jul 16, 2020 Clinical Findings: Generalized weakness and fatigue, Instability, Shortness of breath, Unsteady gait I have seen Pt [id number]: Yes Discharged To: Home Diagnosis/Conditions: PNA Patient is Homebound due to: Radha fall risk due to instabilty, Muscle weakness, Shortness of breath/distress Homebound Status Due to the above stated illness, injury or surgical procedure (medical condition or diagnosis) and associated clinical findings, the patient is homebound because of his/her inability to leave home except with aid of a supportive device and/or person AND leaving the home requires a considerable and taxing effort or is medically contraindicated. Pt req the following assistanc: Walker Home Health Nursing Orders Home Health Services Order: Nursing Services, Inkjet Operator-Evaluate & Treat, Physical Therapy-Evaluate & Treat Home Health Infusion Therapy Line Start Date: Jul 13, 2020 Certify Stmt I certify that this patient is under my care and that I, a nurse practitioner or a physician; a activities assistant working with me, had a face to face encounter that - meets the physician face to face encounter requirements with this patient as dated. SIXTO ANAND DO Jul 16, 2020 11:28
--- NOTE | 2020-07-16 11:29 | Discharge Summary ---
Discharge Summary Hospital Course Was the Problem List Reviewed?: Yes Problems/Dx: (1) Chest pain Status: Acute Qualifiers: Qualified Codes: R07.9 - Chest pain, unspecified (2) Pneumonia Status: Acute Qualifiers: Qualified Codes: J18.9 - Pneumonia, unspecified organism (3) Stented coronary artery (4) Pacemaker (5) PVD (peripheral vascular disease) (6) CAD (coronary artery disease) (7) Atrial fibrillation (8) Acute on chronic heart failure Status: Acute Hospital Course Date of Admission: Jul 13, 2020 at 14:00 Admission Diagnosis : Family Physician/Provider: Greg Vargas MD Date of Discharge: 07/16/20 Discharge Diagnosis: PNA, CHF, Hypoxia, severe debility Hospital Course: Hospital Course: Pt had an uneventful hospital course. She was admitted for chest pain, elevated troponin and covid swab was negative. Overall her sepsis resolved and antibiotics maintained for pneumonia. She was found to be stable for DC back home although prognosis extremely poor. She remains a DNR. Labs and Pending Lab Test: Laboratory Tests 07/15/20 14:20: Prothrombin Time 31.1H, INR Comment 3.0H 07/16/20 05:08: Prothrombin Time 29.6H, INR Comment 2.8H, White Blood Count 4.9, Red Blood Count 3.40L, Hemoglobin 9.2L, Hematocrit 29L, Mean Corpuscular Volume 85, Mean Corpuscular Hemoglobin 27, Mean Corpuscular Hemoglobin Concent 32, Red Cell Distribution Width 17.1H, Platelet Count 296, Mean Platelet Volume 9.3, Immature Granulocyte % (Auto) 0, Neutrophils (%) (Auto) 62, Lymphocytes (%) (Auto) 22, Monocytes (%) (Auto) 11, Eosinophils (%) (Auto) 5, Basophils (%) (Auto) 0, Neutr ophils # (Auto) 3.1, Lymphocytes # (Auto) 1.1, Monocytes # (Auto) 0.5, Eosinophils # (Auto) 0.2, Basophils # (Auto) 0.0, Immature Granulocyte # (Auto) 0.0, Sodium Level 141, Potassium Level 3.3L, Chloride Level 102, Carbon Dioxide Level 29, Anion Gap 10, Blood Urea Nitrogen 8, Creatinine 0.67, Estimat Glomerular Filtration Rate > 60, BUN/Creatinine Ratio 12, Glucose Level 105, Calcium Level 8.9, Corrected Calcium 9.7, Total Bilirubin 0.6, Aspartate Amino Transf (AST/SGOT) 25, Alanine Aminotransferase (ALT/SGPT) 16, Alkaline Phosphatase 82, Total Protein 6.0L, Albumin 3.0L Microbiology 07/13/20 Urine Culture - Final, Complete NO GROWTH 07/13/20 Blood Culture - Preliminary, Resulted No growth 07/13/20 Influenza Types A,B Antigen (NANY) - Final, Complete Home Meds Active Cefdinir 300 Mg Capsule 300 Mg PO BID Proctofoam (Pramoxine HCl) 15 Gm Foam 15 Gm TP Q1HR PRN Carvedilol 12.5 Mg Tablet 12.5 Mg PO BID WITH MEALS Nitroglycerin 0.4 Mg Tab.subl 0 Mg SL UD PRN Reported Miralax (Polyethylene Glycol 3350) 119 Gm Powder 17 Gm PO DAILY PRN Aspirin EC (Aspirin) 81 Mg Tablet.dr 81 Mg PO DAILY Pantoprazole Sodium 40 Mg Tablet.dr 40 Mg PO DAILY Warfarin Sodium 1 Mg Tablet 1.5 Mg PO ,,MON,MON,SAT TAKES AT BEDTIME 1.5MG PO ON MON,,, MON AND SAT 1MG ON MON,MON Warfarin Sodium 1 Mg Tablet 1 Mg PO MON,MON TAKES AT BEDTIME 1.5MG PO ON MON,,, MON AND SAT 1MG ON SUN,MON Vitamin D3 (Cholecalciferol (Vitamin D3)) 50 Mcg Capsule 50 Mcg PO DAILY Tolterodine Tartrate ER (Tolterodine Tartrate) 4 Mg Cap.er.24h 4 Mg PO DAILY Tramadol HCl 50 Mg Tablet 50 Mg PO Q6H PRN Calcium Carbonate 600 Mg Tablet 600 Mg PO Q48H Lisinopril 20 Mg Tablet 20 Mg PO DAILY Cartia Xt (Diltiazem HCl) 180 Mg Cap.er.24h 180 Mg PO DAILY Vitamin B-12 (Cyanocobalamin) 100 Mcg Tablet 1,000 Mcg PO DAILY Plavix (Clopidogrel Bisulfate) 75 Mg Tablet 75 Mg PO DAILY Lipitor (Atorvastatin Calcium) 40 Mg Tablet 40 Mg PO DAILY Acetaminophen 325 Mg Tablet 650 Mg PO Q6H PRN Assessment/Pt Instructions chc 1 week Discharge Planning: <30 minutes discharge planning Discharge Instructions Discharge Diet: No Restrictions Discharge Physical Examination Vital Signs Vital Signs Date Time Temp Pulse Resp B/P (MAP) Pulse Ox O2 Delivery O2 Flow Rate FiO2 07/16/20 08:00 Nasal Cannula 2.00 07/16/20 07:35 96 07/16/20 07:26 36.2 60 18 127/80 (96) 07/14/20 09:23 28 General Appearance: No Apparent Distress, WD/WN, Chronically ill Respiratory: Chest Non Tender, Lungs Clear, Normal Breath Sounds, No Accessory Muscle Use, No Respiratory Distress Cardiovascular: Regular Rate, Rhythm, No Edema, No Gallop, No JVD, No Murmur, Normal Peripheral Pulses Neurologic/Psychiatric: Alert, Oriented x3, No Motor/Sensory Deficits, Normal Mood/Affect Allergies: Coded Allergies: Penicillins (Unverified Allergy, Unknown, 11/17/19) Discharge Summary Date of Admission Jul 13, 2020 at 14:00 Date of Discharge Discharge Date: Jul 16, 2020 Admission Diagnosis Assessment: Dyspnea COVID negative CHF AF Elevated troponin Hypoxia on home on O2 at home since 06/26/20 CVA 2015 OAC Plan: O2 COVID test pending Cards Pulmo DNR Discharge Diagnosis Assessment: Chest pain Pneumonia CHF Anxiety Severe debility Plan: Xanax for anxiety PT/OT 07/15/20: Improved today Dispo pending Appears closer to Hospice enrollment (1) Chest pain Status: Acute Qualifiers: Qualified Codes: R07.9 - Chest pain, unspecified (2) Pneumonia Status: Acute Qualifiers: Qualified Codes: J18.9 - Pneumonia, unspecified organism (3) Stented coronary artery (4) Pacemaker (5) PVD (peripheral vascular disease) (6) CAD (coronary artery disease) (7) Atrial fibrillation (8) Acute on chronic heart failure Status: Acute Clinical Quality Measures DVT/VTE Risk/Contraindication: Risk Factor Score Per Nursin RFS Level Per Nursing on Admit: 4+=Very High SIXTO ANAND DO Jul 16, 2020 11:28
[2020-07-16 12:41] VITALS: BP 138/80
[2020-07-16 12:50] VITALS: BP 138/80
--- NOTE | 2020-07-16 16:20 | NUR ---
CM/SS: Pt to be discharged to home with [facility] to be resumed - they are notified that pt was discharging on today. They will resume care.
--- NOTE | 2020-07-16 17:51 | Physician Query Clarification ---
"Physician Query-General Query to Physician: The medical record reflects the following clinical scenario: History/Risk factors: Pneumonia, Chronic illness/debility Clinical Findings: HR 116, RR 22, WBC 12.6 Treatment: 2L IVF Bolus, IV ABX, Monitoring Question: Do you agree with the impression of Severe Sepsis per ER physician Cornelius Thrasher? If you agree, please document in Progress Notes or Discharge Summary. 1. Yes; will document Severe Sepsis with pneumonia present on admission in the Progress Notes/Discharge Summary. 2. No; will continue to document Pneumonia in the Progress Notes/Discharge summary. 3. Other; will document explanation of clinical findings 4. Clinically undetermined; no explanation for clinical findings Please remember a lack of response to the above will prompt a phone page by CDI/coding staff. In responding to this query, please exercise your independent professional judgment. The purpose of this communication is to more accurately reflect the complexity of your patients condition. The fact that a question is asked does not imply that any particular answer is desired or expected. Thank you for timely response to this clarification. Brendon Dalal, MSN, RN RN Specialist-Clinical Doc Improvement CD -Health Info Mgmt Operations [address] [facility] t: [phone] | f: [phone] If you are unable to reach me at my extension, I may be working from home. Please contact me at [phone] PHYSICIAN RESPONSE: Based on the clinical findings in the record, please respond to the query above on this document as an addendum. Physician Response: Physician Response 2 If you have questions please contact: Overnight Associate: Ext: Thank you for your time and cooperation. Clinical Dynamo Repairer/Overnight Associate This is a permanent part of the medical record BRENDON DALAL Jul 16, 2020 17:51 SIXTO ANAND DO Jul 16, 2020 20:56"
--- NOTE | 2020-07-16 17:53 | Physician Query Clarification ---
"Physician Query-General Query to Physician: The medical record reflects the following clinical scenario: History/Risk factors: CAD, Recent Stent, HTN Clinical Findings: Chest pain, Troponin 0.047, 0.155, 0.121 Treatment: Coreg, plavix, Aspirin, Cardiology consult Question: Do you agree with the impression of Likely type 2 VA due to CHF per Dr. Ping Valenzuela/Rosalie Martinez ? If you agree, please document in Progress Notes or Discharge Summary. 1. Yes; will Type II VA due to CHF in the Progress Notes/Discharge Summary 2. No; will continue to document elevated Troponin in the Progress Notes/ Discharge Summary 3. 4. Other; will document explanation of clinical findings Clinically undetermined; no explanation for clinical findings Please remember a lack of response to the above will prompt a phone page by CDI/coding staff. In responding to this query, please exercise your independent professional judgment. The purpose of this communication is to more accurately reflect the complexity of your patients condition. The fact that a question is asked does not imply that any particular answer is desired or expected. Thank you for timely response to this clarification. Brendon Morillo, MSN, RN RN Specialist-Clinical Doc Improvement CD -Health Info Mgmt Operations [address] [facility] t: [phone] | f: [phone] If you are unable to reach me at my extension, I may be working from home. Please contact me at [phone] PHYSICIAN RESPONSE: Based on the clinical findings in the record, please respond to the query above on this document as an addendum. Physician Response: Physician Response 1 If you have questions please contact: Photographic Platemaker: Ext: Thank you for your time and cooperation. Clinical Correctional Manager/Photographic Platemaker This is a permanent part of the medical record BRENDON MORILLO Jul 16, 2020 17:53 SIXTO ANAND DO Jul 16, 2020 20:56"
== END 2020-07-16 12:50 | disposition home health service (06) | DRG 280 ==
LOC: ER 12:01 → 4TH 14:00
PROVIDERS: ADMIT Internal Medicine; ATTEND Internal Medicine
DX: I11.0 Hypertensive heart disease with heart failure (principal); I50.43 Acute on chronic combined systolic (congestive) and diastolic (congestive) heart failure; I21.A1 Myocardial infarction type 2; J18.9 Pneumonia, unspecified organism; J96.01 Acute respiratory failure with hypoxia; I48.20 Chronic atrial fibrillation, unspecified; I25.5 Ischemic cardiomyopathy; I08.1 Rheumatic disorders of both mitral and tricuspid valves; Z66 Do not resuscitate; Z20.828 Contact with and (suspected) exposure to other viral communicable diseases; I25.10 Atherosclerotic heart disease of native coronary artery without angina pectoris; I73.9 Peripheral vascular disease, unspecified; G47.30 Sleep apnea, unspecified; E78.00 Pure hypercholesterolemia, unspecified; F41.9 Anxiety disorder, unspecified; M19.91 Primary osteoarthritis, unspecified site; Z86.73 Personal history of transient ischemic attack (TIA), and cerebral infarction without residual deficits; Z95.5 Presence of coronary angioplasty implant and graft; Z95.820 Peripheral vascular angioplasty status with implants and grafts; Z95.0 Presence of cardiac pacemaker; Z79.01 Long term (current) use of anticoagulants; Z87.01 Personal history of pneumonia (recurrent); Z90.89 Acquired absence of other organs
CPT/HCPCS: 36415; 71045; 80053; 81000; 83605; 83880; 84145; 84484; 85007; 85025; 85027; 85379; 85610; 85730; 86141; 87040; 87088; 87635; 87804; 93005; 94640; 94664; 94760; 96361; 96365; 96375

== ENCOUNTER 2020-10-06 11:18 | Emergency (ER) | payer MEDICARE ==
[~2020-10-06] VITALS: Ht 165.4 cm; Wt 66.0 kg
--- NOTE | 2020-10-06 11:30 | ED Dyspnea ---
General Stated Complaint: SOB Source of Information: Patient, EMS History of Present Illness Date Seen by Provider: Oct 06, 2020 Time Seen by Provider: 11:29 Initial Comments 81-year-old female presents with shortness of breath. Patient with chronic sh ortness of breath and dyspnea. Patient had a new oxygen concentrator. When she went outside the go to an appointment she got short of breath and then very anxious. When EMS arrived her oxygen saturation was in the mid 80s. They looked at her concentrator and does not feel that it was working properly. They placed her on 15 L oxygen and quickly improved her oxygento 100%. They then transferred to a 3 L nasal cannula and was running approximately 97% oxygen. Patient reports she's having some increased dyspnea over the last couple months. She does not complain of any fevers chills and increasing cough. She reports some epigastric/chest discomfort earlier and took a nitroglycerin for it. She denies any nausea vomiting diaphoresis. She does not have any leg swelling. Allergies and Home Medications Allergies Coded Allergies: Penicillins (Unverified Allergy, Unknown, 11/17/19) Home Medications Acetaminophen 325 Mg Tablet, 650 MG PO Q6H PRN for PAIN-MILD (1-4), (Reported) Aspirin 81 Mg Tablet.dr, 81 MG PO DAILY, (Reported) Atorvastatin Calcium 40 Mg Tablet, 40 MG PO DAILY, (Reported) Calcium Carbonate 600 Mg Tablet, 600 MG PO Q48H, (Reported) Carvedilol 12.5 Mg Tablet, 12.5 MG PO BID WITH MEALS Prescribed by: SIXTO ANAND on 07/01/20 1104 Cefdinir 300 Mg Capsule, 300 MG PO BID Prescribed by: SIXTO ANAND on 07/16/20 1126 Cholecalciferol (Vitamin D3) 50 Mcg Capsule, 50 MCG PO DAILY, (Reported) Clopidogrel Bisulfate 75 Mg Tablet, 75 MG PO DAILY, (Reported) Cyanocobalamin 100 Mcg Tablet, 1,000 MCG PO DAILY, (Reported) Diltiazem HCl 180 Mg Cap.er.24h, 180 MG PO DAILY, (Reported) Furosemide 20 Mg Tablet, 20 MG PO DAILY Prescribed by: EVA HERNADEZ on 10/06/20 1256 Lisinopril 20 Mg Tablet, 20 MG PO DAILY, (Reported) Nitroglycerin 0.4 Mg Tab.subl, 0 MG SL UD PRN for CHEST PAIN (ANGINA) Prescribed by: SIXTO ANAND on 07/01/20 1104 Pantoprazole Sodium 40 Mg Tablet.dr, 40 MG PO DAILY, (Reported) Polyethylene Glycol 3350 119 Gm Powder, 17 GM PO DAILY PRN for CONSTIPATION-2ND LINE, (Reported) Pramoxine HCl 15 Gm Foam, 15 GM TP Q1HR PRN for PAIN-BREAKTHROUGH Prescribed by: AVA AVILA on 07/08/20 1311 Tolterodine Tartrate 4 Mg Cap.er.24h, 4 MG PO DAILY, (Reported) Tramadol HCl 50 Mg Tablet, 50 MG PO Q6H PRN for PAIN-MODERATE (5-7), (Reported) Warfarin Sodium 1 Mg Tablet, 1 MG PO MON,MON, (Reported) TAKES AT BEDTIME 1.5MG PO ON MON,,, MON AND SAT 1MG ON MON,MON Warfarin Sodium 1 Mg Tablet, 1.5 MG PO ,,MON,MON,SAT, (Reported) TAKES AT BEDTIME 1.5MG PO ON MON,,, MON AND SAT 1MG ON MON,MON Patient Home Medication List Home Medication List Reviewed: Yes Review of Systems Review of Systems Constitutional: No chills, No fever Respiratory: No cough; dyspnea on exertion, short of breath Cardiovascular: see HPI, chest pain Gastrointestinal: no symptoms reported Genitourinary: no symptoms reported Musculoskeletal: no symptoms reported Skin: no symptoms reported Psychiatric/Neurological: No Symptoms Reported Endocrine: No Symptoms Reported Past Gbzmhne-Iuevqz-Zbdzco Hx Past Med/Social Hx: Reviewed Nursing Past Med/Soc Hx Patient Social History 2nd Hand Smoke Exposure: No Recent Hopitalizations: No Immunizations Up To Date Tetanus Booster (TDap): Unknown PED Vaccines UTD: Yes Date of Pneumonia Vaccine: Jul 08, 2019 Seasonal Allergies Seasonal Allergies: No Past Medical History Surgeries: Yes (SEE BELOW) Adenoidectomy, Cardiac, Coronary Stent, Pacemaker, Vascular Surgery Respiratory: Yes (CHRONIC COUGH; PNEUMONIA X1; BRONCHITIS ) Pneumonia, Sleep Apnea Cardiac: Yes (PACEMAKER 2016;CARDIAC STENTS X 4; RIGHT CAROTID STENT X 1) Atrial Fibrillation, Coronary Artery Disease, High Cholesterol, Hypertension Neurological: Yes (CVA 2016--NO RESIDUAL EFFECTS; STATES ONLY SYMPTOM WAS HEADACHE. 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 oz. 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 Norm as Tested, Other (anxious) Skin: Normal Color, Warm/Dry Focused Exam Lactate Level 10/06/20 11:35: Lactic Acid Level 1.97 Lactic Acid Level Laboratory Tests Test 10/06/20 11:35 Lactic Acid Level 1.97 MMOL/L (0.50-2.00) Progress/Results/Core Measures Results/Orders Lab Results Laboratory Tests Test 10/06/20 11:35 Range/Units White Blood Count 9.1 4.3-11.0 10^3/uL Red Blood Count 4.20 L 4.35-5.85 10^6/uL Hemoglobin 10.1 L 11.5-16.0 G/DL Hematocrit 34 L 35-52 % Mean Corpuscular Volume 81 80-99 FL Mean Corpuscular Hemoglobin 24 L 25-34 PG Mean Corpuscular Hemoglobin Concent 30 L 32-36 G/DL Red Cell Distribution Width 16.7 H 10.0-14.5 % Platelet Count 302 130-400 10^3/uL Mean Platelet Volume 9.5 7.4-10.4 FL Immature Granulocyte % (Auto) 0 % Neutrophils (%) (Auto) 86 H 42-75 % Lymphocytes (%) (Auto) 7 L 12-44 % Monocytes (%) (Auto) 6 0-12 % Eosinophils (%) (Auto) 1 0-10 % Basophils (%) (Auto) 0 0-10 % Neutrophils # (Auto) 7.8 1.8-7.8 X 10^3 Lymphocytes # (Auto) 0.6 L 1.0-4.0 X 10^3 Monocytes # (Auto) 0.6 0.0-1.0 X 10^3 Eosinophils # (Auto) 0.1 0.0-0.3 10^3/uL Basophils # (Auto) 0.0 0.0-0.1 10^3/uL Immature Granulocyte # (Auto) 0.0 0.0-0.1 10^3/uL Neutrophils % (Manual) 83 % Lymphocytes % (Manual) 7 % Monocytes % (Manual) 4 % Eosinophils % (Manual) 1 % Basophils % (Manual) 1 % Band Neutrophils 4 % Hypochromasia MODERATE Anisocytosis SLIGHT Microcytosis SLIGHT Elliptocytes SLIGHT Sodium Level 143 135-145 MMOL/L Potassium Level 3.5 L 3.6-5.0 MMOL/L Chloride Level 101 98-107 MMOL/L Carbon Dioxide Level 30 21-32 MMOL/L Anion Gap 12 5-14 MMOL/L Blood Urea Nitrogen 10 7-18 MG/DL Creatinine 0.60 0.60-1.30 MG/DL Estimat Glomerular Filtration Rate > 60 BUN/Creatinine Ratio 17 Glucose Level 171 H 70-105 MG/DL Lactic Acid Level 1.97 0.50-2.00 MMOL/L Calcium Level 9.6 8.5-10.1 MG/DL Corrected Calcium 9.5 8.5-10.1 MG/DL Magnesium Level 1.6 1.6-2.4 MG/DL Total Bilirubin 0.8 0.1-1.0 MG/DL Aspartate Amino Transf (AST/SGOT) 11 5-34 U/L Alanine Aminotransferase (ALT/SGPT) 6 0-55 U/L Alkaline Phosphatase 110 40-136 U/L Troponin I < 0.30 <0.30 NG/ML Pro-B-Type Natriuretic Peptide 5338.0 H <75.0 PG/ML Total Protein 7.1 6.4-8.2 GM/DL Albumin 4.1 3.2-4.5 GM/DL My Orders Orders - HERNADEZ,EVA L DO Ekg Tracing (10/06/20 11:30) O2 (10/06/20 11:30) Cbc With Automated Diff (10/06/20 11:30) Comprehensive Metabolic Panel (10/06/20 11:30) Lactic Acid Analyzer (10/06/20 11:30) Magnesium (10/06/20 11:30) Probnp Fs (10/06/20 11:30) Troponin I Fs (10/06/20 11:30) Chest Pa/Lat (2 View) (10/06/20 11:30) Manual Differential (10/06/20 11:35) Vital Signs/I&O 10/06/20 10/06/20 10/06/20 11:21 11:21 13:14 Temp 36.3 36.3 Pulse 94 83 Resp 21 20 B/P (MAP) 171/89 (116) 162/93 (116) Pulse Ox 95 96 O2 Delivery Nasal Cannula Nasal Cannula Nasal Cannula O2 Flow Rate 3.00 3.00 3.00 FiO2 95 Progress Progress Note : Time: 12:53 Progress Note Patient's oxygen saturation remained in the mid to upper 90s on her home O2 settings. Patient with no acute findings. She does have some slightly worsening congestion consistent with CHF. And a new small pleural effusion. I will start her on Lasix, have her follow with Dr. sainz in 2-3 days for continuation of care and recheck in today symptoms. Patient is discharged home in stable condition Initial ECG Impression Date: Oct 06, 2020 Initial ECG Impression Time: 11:41 Initial ECG Rate: 84 Initial ECG Rhythm: A Fib/Flutter Initial ECG Impression: Nonspecific Changes, Atrial Fibrillation Comment rate controlled Afib, no acute findings Departure Impression Primary Impression: Acute on chronic heart failure Qualified Codes: I50.9 - Heart failure, unspecified Additional Impression: Supplemental oxygen dependent Disposition: 01 HOME, SELF-CARE Condition: Stable Departure-Patient Inst. Referrals: LOUIS SAINZ MD (PCP/Family) Primary Care Physician Patient Instructions: CHF, Oxygen Therapy, Adult Add. Discharge Instructions: Follow-up with Dr. sainz in 2-3 days for recheck in today symptoms and continuation of care Scripts Furosemide (Lasix) 20 Mg Tablet 20 MG PO DAILY for 5 Days, #5 TAB Prov: ROSA HERNADEZR L DO 10/06/20 HERNADEZROSAR L DO Oct 06, 2020 11:30
[2020-10-06 11:50] LABS: HEMATOCRIT 34 % (35-52); HEMOGLOBIN 10.1 G/DL (11.5-16.0); MEAN CORPUSCULAR HEMOGLOBIN 24 PG (25-34); MEAN CORPUSCULAR VOLUME 81 FL (80-99); WHITE BLOOD COUNT 9.1 10^3/uL (4.3-11.0)
[2020-10-06 11:51] LABS: BASOPHILS % (AUTO) 0 % (0-10); EOSINOPHILS # (AUTO) 0.1 10^3/uL (0.0-0.3); EOSINOPHILS % (AUTO) 1 % (0-10); LYMPHOCYTES # (AUTO) 0.6 X 10^3 (1.0-4.0); LYMPHOCYTES % (AUTO) 7 % (12-44); MEAN CORPUSCULAR HGB CONC 30 G/DL (32-36); MEAN PLATELET VOLUME 9.5 FL (7.4-10.4); MONOCYTES # (AUTO) 0.6 X 10^3 (0.0-1.0); MONOCYTES % (AUTO) 6 % (0-12); NEUTROPHILS # (AUTO) 7.8 X 10^3 (1.8-7.8); NEUTROPHILS % (AUTO) 86 % (42-75); PLATELET COUNT 302 10^3/uL (130-400)
--- NOTE | 2020-10-06 12:09 | Diagnostic Imaging Report ---
Clinical indication: Patient with short of breath. Exam: Chest x-ray PA and lateral views. Comparisons: Chest x-ray dated 07/14/2020. Findings: Cardiomegaly is again seen. There is pulmonary vascular congestion again seen which is not significantly changed. There is stable blunting of left costophrenic angle and left pleural effusion may be present. There is interval low lung volumes compared to prior study. There is slight progression of bibasilar atelectasis and/or infiltrate. There is development of discoid atelectasis and/or minimal fluid in minor fissure region. There is no pneumothorax. Pacemaker seen overlying left chest. Bones show no significant interval abnormality. Impression: 1: Again seen cardiomegaly with grossly similar pulmonary vascular congestion which can be seen with congestive heart failure. 2: There is slight progression of decreased lung volume with slight increased bibasilar atelectasis versus infiltrates. 3: Suspected left pleural effusion is again seen. Dictated by: Dictated on workstation # [id number]
[2020-10-06 12:21] LABS: BUN/CREATININE RATIO 17; CARBON DIOXIDE 30 MMOL/L (21-32); CHLORIDE 101 MMOL/L (98-107); GFR ESTIMATED > 60; POTASSIUM 3.5 MMOL/L (3.6-5.0); SODIUM 143 MMOL/L (135-145)
[2020-10-06 12:22] LABS: ALANINE AMINOTRANSFERASE 6 U/L (0-55); ALBUMIN 4.1 GM/DL (3.2-4.5); ALKALINE PHOSPHATASE 110 U/L (40-136); BILIRUBIN,TOTAL 0.8 MG/DL (0.1-1.0); CALCIUM 9.6 MG/DL (8.5-10.1); GLUCOSE 171 MG/DL (70-105); MAGNESIUM 1.6 MG/DL (1.6-2.4); TOTAL PROTEIN 7.1 GM/DL (6.4-8.2)
[2020-10-06 12:31] LABS: ANISOCYTOSIS SLIGHT; BAND NEUTROPHILS 4 %; BASOPHILS % (MANUAL) 1 %; EOSINOPHILS % (MANUAL) 1 %; HYPOCHROMASIA MODERATE; LYMPHOCYTES % (MANUAL) 7 %; MICROCYTOSIS SLIGHT; MONOCYTES % (MANUAL) 4 %; NEUTROPHILS % (MANUAL) 83 %
[2020-10-06 12:32] LABS: ELLIPT/OVALOCYTES SLIGHT
[2020-10-06] MEDS ORDERED: FURO-125 PO (12:56)
[2020-10-06 13:14] VITALS: BP 162/93
== END 2020-10-06 13:14 | disposition home or self-care (01) ==
LOC: EDUNIT# 11:18 → ER FS 11:19
DX: I11.0 Hypertensive heart disease with heart failure (principal); I50.9 Heart failure, unspecified; I25.10 Atherosclerotic heart disease of native coronary artery without angina pectoris; I48.91 Unspecified atrial fibrillation; E78.00 Pure hypercholesterolemia, unspecified; Z99.81 Dependence on supplemental oxygen; Z95.5 Presence of coronary angioplasty implant and graft; Z86.73 Personal history of transient ischemic attack (TIA), and cerebral infarction without residual deficits; Z79.82 Long term (current) use of aspirin; Z79.01 Long term (current) use of anticoagulants; Z88.0 Allergy status to penicillin
CPT/HCPCS: 36415; 71046; 80053; 83605; 83735; 83880; 84484; 85007; 85027

== ENCOUNTER 2020-10-24 22:07 | Inpatient (IN) | payer MEDICARE ==
[~2020-10-24] VITALS: Ht 165.1 cm; Wt 68.0 kg
[~2020-10-24 22:07] MED LIST changes: +FURO-125 PO
[2020-10-24] MEDS ORDERED: ASPIRIN 81 MG CHEW (CHILDREN'S ASA) PO ONE (22:30)
[2020-10-24 22:41] LABS: BASOPHILS % (AUTO) 0 % (0-10); EOSINOPHILS # (AUTO) 0.1 10^3/uL (0.0-0.3); EOSINOPHILS % (AUTO) 1 % (0-10); HEMATOCRIT 34 % (35-52); HEMOGLOBIN 10.3 g/dL (11.5-16.0); LYMPHOCYTES # (AUTO) 0.9 10^3/uL (1.0-4.0); LYMPHOCYTES % (AUTO) 10 % (12-44); MEAN CORPUSCULAR HEMOGLOBIN 24 pg (25-34); MEAN CORPUSCULAR HGB CONC 30 g/dL (32-36); MEAN CORPUSCULAR VOLUME 80 fL (80-99); MEAN PLATELET VOLUME 9.5 fL (9.0-12.2); MONOCYTES # (AUTO) 0.7 10^3/uL (0.0-1.0); MONOCYTES % (AUTO) 8 % (0-12); NEUTROPHILS # (AUTO) 7.1 10^3/uL (1.8-7.8); NEUTROPHILS % (AUTO) 80 % (42-75); PLATELET COUNT 310 10^3/uL (130-400); WHITE BLOOD COUNT 8.9 10^3/uL (4.3-11.0)
[2020-10-24 22:47] LABS: ALBUMIN 4.1 GM/DL (3.2-4.5)
[2020-10-24 22:48] LABS: CHLORIDE 105 MMOL/L (98-107); POTASSIUM 3.6 MMOL/L (3.6-5.0); SODIUM 141 MMOL/L (135-145)
[2020-10-24 22:49] LABS: CALCIUM 9.4 MG/DL (8.5-10.1)
[2020-10-24 22:50] LABS: GLUCOSE 145 MG/DL (70-105); INR 2.7 (0.8-1.4); PROTHROMBIN TIME PATIENT 28.7 SEC (12.2-14.7); TOTAL PROTEIN 7.4 GM/DL (6.4-8.2)
[2020-10-24 22:51] LABS: CARBON DIOXIDE 23 MMOL/L (21-32)
[2020-10-24 22:53] LABS: ALKALINE PHOSPHATASE 116 U/L (40-136)
[2020-10-24 22:54] LABS: GFR ESTIMATED > 60
[2020-10-24 22:55] LABS: BUN/CREATININE RATIO 11
[2020-10-24 22:56] LABS: ALANINE AMINOTRANSFERASE 9 U/L (0-55); MAGNESIUM 1.8 MG/DL (1.6-2.4)
[2020-10-24] MEDS ORDERED: FUROSEMIDE 40 MG/4 ML INJ (LASIX) IVP ONE (23:30)
[2020-10-25] VITALS (9 sets, daily range): BP systolic 135–169; BP diastolic 77–106
--- NOTE | 2020-10-25 00:04 | ED General ---
General Chief Complaint: General Problems/Pain Stated Complaint: PANIC ATTACK Nursing Triage Note: TO ED VIA [facility] WITH C/O FEELING ANXIOUS AND "CAN'T BREATHE" STATING SHE ONLY TOOK NIGHT MED WARFARIN TONIGHT. STATES SHE DID NOT TAKE ANY OTHER MEDS TODAY BECAUSE THEY WERE NOT PUT IN PILL ORGANIZER AND SHE DIDN'T FEEL LIKE PUTTING THEM IN THERE OR TAKING THE PILLS TODAY AND HER DOESN'T KNOW HOW TO DO IT. Nursing Sepsis Screen: No Definite Risk Source of Information: Patient History of Present Illness Date Seen by Provider: Oct 24, 2020 Time Seen by Provider: 22:09 Initial Comments PT ARRIVES VIA EMS FROM HOME PT STATES SHE IS HAVING A PANIC ATTACK AND FEELING ANXIOUS AND FEELS LIKE SHE CAN'T BREATHE PT HAS NOT TAKEN ANY OF HER MEDICATIONS TODAY, EXCEPT WARFARIN--STATES SHE "DIDN'T FEEL LIKE SETTING UP HER MEDICATIONS" IN PILL ORGANIZER, SO SHE SIMPLY DIDN'T TAKE THEM BECAUSE THEY "WEREN'T SET UP" AND HER DOESN'T KNOW HOW TO DO IT PT LATER STATES SHE DID TAKE HER WARFARIN TODAY, FOR ATRIAL FIBRILLATION, BUT DID NOT TAKE ANY OF HER OTHER MEDICATIONS, INCLUDING HER ANXIETY MEDICATION WEARS HOME O2 AT 3L/NC--O2 SATS IN HIGH 90'S ON ARRIVAL. MUCH LATER, PT STATES THAT SHE HAS BEEN HAVING PAIN IN THE CENTER OF HER CHEST AND GOES STRAIGHT THROUGH TO HER BACK ALL DAY. PT DENIES HAVING PAIN NOW NO NAUSEA/VOMITING NO FEVER/SWEATS/CHILLS NO SWELLING IN LEGS/FEET OR PAIN IN CALVES NO COUGH OR RECENT ILLNESS NO DIZZINESS OR SYNCOPE PT DID HAVE NSTEMI AND HAD A CARDIAC CATH AND ANGIOPLASTY IN JUNE, AND PT REFUSED TO GO TO ASSISTED AT THAT TIME. PT HAS HAD MULTIPLE CARDIAC STENTS AND RIGHT CAROTID STENT PT ALSO HAS A PACEMAKER PT HERE 10/06/20 FOR DYSPNEA, CHF, AND PROBLEM WITH HOME O2 --DISMISSED TO HOME. PCP: RICH DE LEON Allergies and Home Medications Allergies Coded Allergies: Penicillins (Unverified Allergy, Unknown, 11/17/19) Home Medications Acetaminophen 325 Mg Tablet, 650 MG PO Q6H PRN for PAIN-MILD (1-4), (Reported) Aspirin 81 Mg Tablet.dr 81 MG PO DAILY, (Reported) Atorvastatin Calcium 40 Mg Tablet, 40 MG PO DAILY, (Reported) Calcium Carbonate 600 Mg Tablet, 600 MG PO Q48H, (Reported) Carvedilol 12.5 Mg Tablet, 12.5 MG PO BID WITH MEALS Prescribed by: SIXTO ANAND on 07/01/20 1104 Cefdinir 300 Mg Capsule, 300 MG PO BID Prescribed by: SIXTO ANAND on 07/16/20 1126 Cholecalciferol (Vitamin D3) 50 Mcg Capsule, 50 MCG PO DAILY, (Reported) Clopidogrel Bisulfate 75 Mg Tablet, 75 MG PO DAILY, (Reported) Cyanocobalamin 100 Mcg Tablet, 1,000 MCG PO DAILY, (Reported) Diltiazem HCl 180 Mg Cap.er.24h, 180 MG PO DAILY, (Reported) Furosemide 20 Mg Tablet, 20 MG PO DAILY Prescribed by: EVA HERNADEZ on 10/06/20 1256 Lisinopril 20 Mg Tablet, 20 MG PO DAILY, (Reported) Nitroglycerin 0.4 Mg Tab.subl, 0 MG SL UD PRN for CHEST PAIN (ANGINA) Prescribed by: SIXTO ANAND on 07/01/20 1104 Pantoprazole Sodium 40 Mg Tablet.dr, 40 MG PO DAILY, (Reported) Polyethylene Glycol 3350 119 Gm Powder, 17 GM PO DAILY PRN for CONSTIPATION-2ND LINE, (Reported) Pramoxine HCl 15 Gm Foam, 15 GM TP Q1HR PRN for PAIN-BREAKTHROUGH Prescribed by: AVA AVILA on 07/08/20 1311 Tolterodine Tartrate 4 Mg Cap.er.24h, 4 MG PO DAILY, (Reported) Tramadol HCl 50 Mg Tablet, 50 MG PO Q6H PRN for PAIN-MODERATE (5-7), (Reported) Warfarin Sodium 1 Mg Tablet, 1 MG PO MON,MON, (Reported) TAKES AT BEDTIME 1.5MG PO ON MON,,TH, FRI AND SAT 1MG ON MON,MON Warfarin Sodium 1 Mg Tablet, 1.5 MG PO ,,MON,FRI,SAT, (Reported) TAKES AT BEDTIME 1.5MG PO ON MON,,, MON AND SAT 1MG ON MON,MON Patient Home Medication List Home Medication List Reviewed: Yes Review of Systems Review of Systems Constitutional: no symptoms reported; No chills, No diaphoresis, No dizziness, No fever EENTM: no symptoms reported Respiratory: see HPI; No cough; short of breath Cardiovascular: see HPI, chest pain; No edema, No palpitations, No syncope Gastrointestinal: no symptoms reported; No abdominal pain, No nausea, No vomiting Genitourinary: no symptoms reported Musculoskeletal: see HPI, back pain Skin: no symptoms reported Psychiatric/Neurological: No Symptoms Reported Hematologic/Lymphatic: No Symptoms Reported Immunological/Allergic: no symptoms reported Past Tkbuned-Smlfzo-Fqxbzz Hx Past Med/Social Hx: Reviewed and Corrections made Patient Social History Alcohol Use: Denies Use 2nd Hand Smoke Exposure: No Recent Infectious Disease Expo: No Recent Hopitalizations: No Immunizations Up To Date Tetanus Booster (TDap): Unknown PED Vaccines UTD: Yes Date of Pneumonia Vaccine: Jul 08, 2019 Seasonal Allergies Seasonal Allergies: No Past Medical History Surgeries: Yes Adenoidectomy, Cardiac, Coronary Stent, Pacemaker, Vascular Surgery Respiratory: Yes (CHRONIC COUGH; PNEUMONIA X1; BRONCHITIS ) Pneumonia, Sleep Apnea Cardiac: Yes (PACEMAKER 2017;CARDIAC STENTS X 4; RIGHT CAROTID STENT X 1;ANGIOPLASTIES) Atrial Fibrillation, Cardiomyopathy, Coronary Artery Disease, Heart Attack, High Cholesterol, Hypertension, Peripheral Vascular Neurological: Yes (CVA 2015--NO RESIDUAL EFFECTS; STATES ONLY SYMPTOM WAS HEADACHE. ) Stroke PEAR PICKER History: Menopausal Genitourinary: No Gastrointestinal: No Musculoskeletal: Yes Arthritis Endocrine: No HEENT: No Cancer: No Psychosocial: No Integumentary: No Blood Disorders: No Family Medical History PSH: -CARDIAC CATHS--STENTS X 4. PLUS ANGIOPLASTIES. -CARDIAC CATH 03/03/20-BY DR. LEAHY CONCLUSIONS: Successful balloon angioplasty of 99% proximal stenosis of the second obtuse marginal with reduction of stenosis to approximately 50% and improvement of flow from CODY 2 to CODY 3. -CARDIAC CATH 06/29/[address] LEAHY- CONCLUSIONS: 1. Coronary artery disease as detailed above. The left circumflex artery had a near total occlusion that was reduced to less than 50% with balloon angioplasty. The left anterior descending artery is known to have Synergy 3.5 x 28 and 3.0 x 16 mm stents that were exhibiting 90% stenosis. This was reduced to less than 50% with balloon angioplasty. The right coronary artery is known to have Synergy 4.0 x 38 and 3.5 x 38 stents that are patent. All vessels have diffuse moderate disease. 2. Ischemic cardiomyopathy with apical akinesis to dyskinesis and left ventricular ejection fraction approximately 40%. 3. Elevated left ventricular end-diastolic pressure. -RIGHT CAROTID STENT X 1 -PACEMAKER 2017 ADDITIONAL PMH: -MULTIPLE NSTEMI'S -ADMITTED 06/28/20-07/01/20 FOR NSTEMI -ADMITTED 07/13/20- FOR SEPSIS AND PNEUMONIA Physical Exam Vital Signs Vital Signs - First Documented 10/25/20 03:06 Pulse Ox 100 Capillary Refill : Less Than 3 Seconds Height, Weight, BMI Height: '" Weight: lbs. oz. kg; 24.00 BMI Method: General Appearance: WD/WN, Anxious, Mild Distress, Other (MIDLY DYSPNEIC ON ARRIVAL BUT ALSO ANXIOUS WITH CONSTANT MOVEMENTS) Neck: Normal Inspection Respiratory: Wheezing (BILATERAL WHEEZING. ), Other (MILDLY DYSPNEIC) Cardiovascular: No Murmur, Irregularly Irregular Gastrointestinal: Non Tender, Soft Extremity: Normal Inspection, Non Tender, No Calf Tenderness, No Pedal Edema Neurologic/Psychiatric: Alert, Oriented x3, No Motor/Sensory Deficits, data sme II- XII Norm as Tested, Other (ANXIOUS) Skin: Normal Color, Warm/Dry Progress/Results/Core Measures Suspected Sepsis Recent Fever Within 48 Hours: No Infection Criteria Present: None New/Unexplained Altered Menta: No Sepsis Screen: No Definite Risk SIRS Temperature: Pulse: 107 Respiratory Rate: 22 Laboratory Tests 10/24/20 22:30: White Blood Count 8.9 10/25/20 07:22: White Blood Count 6.2 10/26/20 03:38: White Blood Count 5.8 Blood Pressure 120 /81 Mean: 94 Laboratory Tests 10/24/20 22:30: Creatinine 0.70, INR Comment 2.7H, Platelet Count 310, Total Bilirubin 1.0 10/25/20 07:22: Creatinine 0.67, INR Comment 2.6H, Platelet Count 264, Total Bilirubin 0.9 10/26/20 03:38: Creatinine 0.72, INR Comment 2.5H, Platelet Count 237, Total Bilirubin 0.7 Results/Orders Lab Results Laboratory Tests Test 10/24/20 22:30 10/25/20 00:25 10/25/20 00:45 10/25/20 04:30 Range/Units White Blood Count 8.9 4.3-11.0 10^3/uL Red Blood Count 4.25 3.80-5.11 10^6/uL Hemoglobin 10.3 L 11.5-16.0 g/dL Hematocrit 34 L 35-52 % Mean Corpuscular Volume 80 80-99 fL Mean Corpuscular Hemoglobin 24 L 25-34 pg Mean Corpuscular Hemoglobin Concent 30 L 32-36 g/dL Red Cell Distribution Width 18.0 H 10.0-14.5 % Platelet Count 310 130-400 10^3/uL Mean Platelet Volume 9.5 9.0-12.2 fL Immature Granulocyte % (Auto) 0 % Neutrophils (%) (Auto) 80 H 42-75 % Lymphocytes (%) (Auto) 10 L 12-44 % Monocytes (%) (Auto) 8 0-12 % Eosinophils (%) (Auto) 1 0-10 % Basophils (%) (Auto) 0 0-10 % Neutrophils # (Auto) 7.1 1.8-7.8 10^3/uL Lymphocytes # (Auto) 0.9 L 1.0-4.0 10^3/uL Monocytes # (Auto) 0.7 0.0-1.0 10^3/uL Eosinophils # (Auto) 0.1 0.0-0.3 10^3/uL Basophils # (Auto) 0.0 0.0-0.1 10^3/uL Immature Granulocyte # (Auto) 0.0 0.0-0.1 10^3/uL Prothrombin Time 28.7 H 12.2-14.7 SEC INR Comment 2.7 H 0.8-1.4 Activated Partial Thromboplast Time 37 H 24-35 SEC Sodium Level 141 135-145 MMOL/L Potassium Level 3.6 3.6-5.0 MMOL/L Chloride Level 105 98-107 MMOL/L Carbon Dioxide Level 23 21-32 MMOL/L Anion Gap 13 5-14 MMOL/L Blood Urea Nitrogen 8 7-18 MG/DL Creatinine 0.70 0.60-1.30 MG/DL Estimat Glomerular Filtration Rate > 60 BUN/Creatinine Ratio 11 Glucose Level 145 H 70-105 MG/DL Calcium Level 9.4 8.5-10.1 MG/DL Corrected Calcium 9.3 8.5-10.1 MG/DL Magnesium Level 1.8 1.6-2.4 MG/DL Total Bilirubin 1.0 0.1-1.0 MG/DL Aspartate Amino Transf (AST/SGOT) 15 5-34 U/L Alanine Aminotransferase (ALT/SGPT) 9 0-55 U/L Alkaline Phosphatase 116 40-136 U/L Troponin I < 0.028 < 0.028 0.037 H <0.028 NG/ML B-Type Natriuretic Peptide 2859.4 H <100.0 PG/ML Total Protein 7.4 6.4-8.2 GM/DL Albumin 4.1 3.2-4.5 GM/DL Urine Color YELLOW Urine Clarity CLEAR Urine pH 7.0 5-9 Urine Specific Worden 1.015 L 1.016-1.022 Urine Protein TRACE H NEGATIVE Urine Glucose (UA) NEGATIVE NEGATIVE Urine Ketones NEGATIVE NEGATIVE Urine Nitrite NEGATIVE NEGATIVE Urine Bilirubin NEGATIVE NEGATIVE Urine Urobilinogen 0.2 < = 1.0 MG/DL Urine Leukocyte Esterase NEGATIVE NEGATIVE Urine RBC (Auto) 2+ H NEGATIVE Urine RBC 2-5 H /HPF Urine WBC 0-2 /HPF Urine Squamous Epithelial Cells 0-2 /HPF Urine Crystals NONE /LPF Urine Bacteria TRACE /HPF Urine Casts NONE /LPF Urine Mucus NEGATIVE /LPF Urine Culture Indicated NO Test 10/25/20 06:46 10/25/20 07:22 10/25/20 10:40 10/25/20 20:44 Range/Units Glucometer 112 H 97 110 70-110 MG/DL White Blood Count 6.2 4.3-11.0 10^3/uL Red Blood Count 4.06 3.80-5.11 10^6/uL Hemoglobin 9.8 L 11.5-16.0 g/dL Hematocrit 33 L 35-52 % Mean Corpuscular Volume 80 80-99 fL Mean Corpuscular Hemoglobin 24 L 25-34 pg Mean Corpuscular Hemoglobin Concent 30 L 32-36 g/dL Red Cell Distribution Width 17.9 H 10.0-14.5 % Platelet Count 264 130-400 10^3/uL Mean Platelet Volume 9.6 9.0-12.2 fL Prothrombin Time 28.0 H 12.2-14.7 SEC INR Comment 2.6 H 0.8-1.4 Sodium Level 144 135-145 MMOL/L Potassium Level 2.9 L 3.6-5.0 MMOL/L Chloride Level 102 98-107 MMOL/L Carbon Dioxide Level 30 21-32 MMOL/L Anion Gap 12 5-14 MMOL/L Blood Urea Nitrogen 7 7-18 MG/DL Creatinine 0.67 0.60-1.30 MG/DL Estimat Glomerular Filtration Rate > 60 BUN/Creatinine Ratio 10 Glucose Level 106 H 70-105 MG/DL Calcium Level 8.8 8.5-10.1 MG/DL Corrected Calcium 9.0 8.5-10.1 MG/DL Total Bilirubin 0.9 0.1-1.0 MG/DL Aspartate Amino Transf (AST/SGOT) 14 5-34 U/L Alanine Aminotransferase (ALT/SGPT) 9 0-55 U/L Alkaline Phosphatase 101 40-136 U/L Total Protein 6.7 6.4-8.2 GM/DL Albumin 3.7 3.2-4.5 GM/DL Test 10/26/20 03:38 Range/Units White Blood Count 5.8 4.3-11.0 10^3/uL Red Blood Count 3.96 3.80-5.11 10^6/uL Hemoglobin 9.4 L 11.5-16.0 g/dL Hematocrit 32 L 35-52 % Mean Corpuscular Volume 80 80-99 fL Mean Corpuscular Hemoglobin 24 L 25-34 pg Mean Corpuscular Hemoglobin Concent 30 L 32-36 g/dL Red Cell Distribution Width 17.8 H 10.0-14.5 % Platelet Count 237 130-400 10^3/uL Mean Platelet Volume 9.9 9.0-12.2 fL Immature Granulocyte % (Auto) 0 % Neutrophils (%) (Auto) 66 42-75 % Lymphocytes (%) (Auto) 20 12-44 % Monocytes (%) (Auto) 10 0-12 % Eosinophils (%) (Auto) 3 0-10 % Basophils (%) (Auto) 1 0-10 % Neutrophils # (Auto) 3.9 1.8-7.8 10^3/uL Lymphocytes # (Auto) 1.2 1.0-4.0 10^3/uL Monocytes # (Auto) 0.6 0.0-1.0 10^3/uL Eosinophils # (Auto) 0.2 0.0-0.3 10^3/uL Basophils # (Auto) 0.0 0.0-0.1 10^3/uL Immature Granulocyte # (Auto) 0.0 0.0-0.1 10^3/uL Prothrombin Time 27.7 H 12.2-14.7 SEC INR Comment 2.5 H 0.8-1.4 Sodium Level 142 135-145 MMOL/L Potassium Level 3.7 3.6-5.0 MMOL/L Chloride Level 104 98-107 MMOL/L Carbon Dioxide Level 29 21-32 MMOL/L Anion Gap 9 5-14 MMOL/L Blood Urea Nitrogen 12 7-18 MG/DL Creatinine 0.72 0.60-1.30 MG/DL Estimat Glomerular Filtration Rate > 60 BUN/Creatinine Ratio 17 Glucose Level 116 H 70-105 MG/DL Calcium Level 8.9 8.5-10.1 MG/DL Corrected Calcium 9.5 8.5-10.1 MG/DL Total Bilirubin 0.7 0.1-1.0 MG/DL Aspartate Amino Transf (AST/SGOT) 13 5-34 U/L Alanine Aminotransferase (ALT/SGPT) 8 0-55 U/L Alkaline Phosphatase 90 40-136 U/L Troponin I 0.033 H <0.028 NG/ML B-Type Natriuretic Peptide 1552.8 H <100.0 PG/ML Total Protein 6.1 L 6.4-8.2 GM/DL Albumin 3.3 3.2-4.5 GM/DL My Orders Orders - SANJANA VUONG DO Fluticasone/Salmeterol 115/ (Advair Hf (10/25/20 08:00) Ed Iv/Invasive Line Start (10/24/20 22:16) Ekg Tracing (10/24/20 22:16) O2 (10/24/20 22:16) Monitor-Rhythm Ecg Trace Only (10/24/20 22:16) Chest 1 View, Ap/Pa Only (10/24/20 22:16) BNP (10/24/20 22:16) Cbc With Automated Diff (10/24/20 22:16) Comprehensive Metabolic Panel (10/24/20 22:16) Magnesium (10/24/20 22:16) Protime With Inr (10/24/20 22:16) Partial Thromboplastin Time (10/24/20 22:16) Troponin I (10/24/20 22:16) Ed Iv/Invasive Line Start (10/24/20 22:16) Ekg Tracing (10/24/20 22:16) O2 (10/24/20 22:16) Ed Iv/Invasive Line Start (10/24/20 22:16) Ekg Tracing (10/24/20 22:16) O2 (10/24/20 22:16) Ed Iv/Invasive Line Start (10/24/20 22:16) Ekg Tracing (10/24/20 22:16) O2 (10/24/20 22:16) Ed Iv/Invasive Line Start (10/24/20 22:16) Ekg Tracing (10/24/20 22:16) O2 (10/24/20 22:16) Aspirin Chewable Tablet (Baby Aspirin Ch (10/24/20 22:30) Furosemide Injection (Lasix Injection) (10/24/20 23:30) Catheter(Urinary) Insert & Ass 03,15 (10/25/20 00:04) Lorazepam Injection (Ativan Injection) (10/25/20 00:15) Nitroglycerin Ointment (Nitrobid Ointme (10/25/20 00:15) Ua Culture If Indicated (10/25/20 00:19) Troponin I (10/25/20 00:28) Ekg Tracing (10/25/20 00:28) Medications Given in ED Vital Signs/I&O 10/25/20 10/25/20 10/26/20 10/26/20 20:00 20:26 01:00 03:44 Temp 35.9 36.1 Pulse 73 O2 Delivery Nasal Cannula O2 Flow Rate 3.00 Capillary Refill : Less Than 3 Seconds Blood Pressure Mean: 94 Progress Note : Progress Note GIVEN ASPIRIN GIVEN LASIX AND NITROPASTE FOR CHF GIVEN ATIVAN FOR ANXIETY PT OBSERVED IN ER AND 3 HOUR REPEAT TROPONIN AND EKG WERE DONE, EKG UNCHANGED AND REPEAT TROPONIN NEGATIVE. PT LATER REPORTED THAT SHE HAS HAD SOME BRIEF EPISODES OF PAIN, BUT DID NOT REPORT ANY OF THIS TO ANY ER STAFF. ECG Initial ECG Impression Date: Oct 24, 2010 Initial ECG Impression Time: 22:21 Initial ECG Rate: 109 Initial ECG Rhythm: A Fib/Flutter Initial ECG Impression: Nonspecific Changes EKG : EKG Time: 00:37 Rate: 117 Rhythm: A Fib/Flutter ECG Comparisson: Unchanged ECG Impression: Nonspecific Changes Diagnostic Imaging Comments CXR--CHF, PENDING RADIOLOGIST REVIEW Reviewed: Reviewed by Ak Departure Communication (Admissions) [id number]--ATTEMPTING TO CONTACT DR. ANAND, UNABLE TO LEAVE MESSAGE. 0023--SPOKE WITH DR. ANAND, ACCEPTS PT FOR ADMIT Impression Primary Impression: Chest pain Additional Impressions: Acute on chronic heart failure HX OF CAD WITH STENTS AND ANGIOPLASTIES Anxiety Chronic atrial fibrillation CHRONIC HYPOXIA Disposition: ADMITTED INPATIENT Condition: Improved Admissions Decision to Admit Reason: Admit from ER (General) Decision to Admit/Date: Oct 25, 2020 Time/Decision to Admit Time: 00:25 Departure-Patient Inst. Referrals: SELFLOUIS MD (PCP/Family) Primary Care Physician SANJANA VUONG DO Oct 25, 2020 00:04
[2020-10-25] MEDS ORDERED: LORazepam INJ 2 MG/ML (ATIVAN) VIAL IVP PRN ×2 (00:15→04:15)
[2020-10-25] MEDS ORDERED: NITROGLYCERIN 2% OINT 1 GM UNIT DOSE PACKET TOP ONE (00:15)
[2020-10-25 00:36] LABS: BILIRUBIN,URINE NEGATIVE (NEGATIVE); CLARITY,URINE CLEAR; COLOR,URINE YELLOW; GLUCOSE, URINE (UA) NEGATIVE (NEGATIVE); KETONES,URINE NEGATIVE (NEGATIVE); LEUKOCYTE ESTERASE ,URINE NEGATIVE (NEGATIVE); NITRITE,URINE NEGATIVE (NEGATIVE); PROTEIN,URINE TRACE (NEGATIVE)
--- NOTE | 2020-10-25 01:25 | NUR ---
TO HOLD IN ED UNTIL AFTER RN CLASSICS TEACHER ARRIVES AND PT ARRANGEMENTS MADE MULTIPLE PT TO BE ADMITTED TO [facility].
[2020-10-25 01:31] LABS: BACTERIA,URINE TRACE /HPF; SQUAMOUS EPITHELIAL CELL,UR 0-2 /HPF; WBC,URINE 0-2 /HPF
--- NOTE | 2020-10-25 03:50 | NUR ---
KEISHA ESPAÑA admitted to room 509-1, with an admitting diagnosis of CHF, CHEST PAIN, HTN, CHRONIC AFIB, on 10/25/20 from ED via [facility], accompanied by STAFF.KEISHA ESPAÑA introduced to surroundings, call light, bed controls, phone, TV, temperature control, lights, meal times, smoking policy, visitor policy, side rail policy, bathrooms and showers. Patient Rights given to patient in the handbook. KEISHA ESPAÑA verbalizes understanding that [facility] is not responsible for the loss or damage to any personal effects or valuables that are kept in the patients posession during their hospitalization. KEISHA ESPAÑA verbalizes understanding of Interdisciplinary Patient Education. Patient and/or family were informed about the Rapid Response Team and its purpose.
[2020-10-25] MEDS ORDERED: morphine INJ 4 MG/ML 1 ML (VIAL/SYRINGE) IV PRN (04:15)
[2020-10-25] MEDS ORDERED: ONDANSETRON 4 MG/2 ML (SDV) Z0FRAN IVP PRN (04:15)
[2020-10-25] MEDS ORDERED: NITROGLYCERIN 2% OINT 1 GM UNIT DOSE PACKET TOP SCH (06:00)
[2020-10-25] MEDS: NITROGLYCERIN 2% OINT 1 GM UNIT DOSE PACKET TOP SCH ×4 (06:45→23:33)
--- NOTE | 2020-10-25 06:54 | NUR ---
CALLED TO UPDATE PT'S ABOUT PT'S STATUS PER PT REQUEST.
[2020-10-25 07:38] LABS: HEMOGLOBIN 9.8 g/dL (11.5-16.0); MEAN PLATELET VOLUME 9.6 fL (9.0-12.2); WHITE BLOOD COUNT 6.2 10^3/uL (4.3-11.0)
[2020-10-25 07:41] LABS: ALBUMIN 3.7 GM/DL (3.2-4.5)
[2020-10-25 07:42] LABS: CHLORIDE 102 MMOL/L (98-107); POTASSIUM 2.9 MMOL/L (3.6-5.0); SODIUM 144 MMOL/L (135-145)
[2020-10-25 07:43] LABS: CALCIUM 8.8 MG/DL (8.5-10.1)
[2020-10-25 07:44] LABS: GLUCOSE 106 MG/DL (70-105); TOTAL PROTEIN 6.7 GM/DL (6.4-8.2)
[2020-10-25 07:45] LABS: CARBON DIOXIDE 30 MMOL/L (21-32); INR 2.6 (0.8-1.4)
[2020-10-25 07:46] LABS: BILIRUBIN,TOTAL 0.9 MG/DL (0.1-1.0)
[2020-10-25 07:47] LABS: ALKALINE PHOSPHATASE 101 U/L (40-136)
[2020-10-25 07:48] LABS: CREATININE SERUM 0.67 MG/DL (0.60-1.30); GFR ESTIMATED > 60
[2020-10-25 07:49] LABS: BUN/CREATININE RATIO 10
[2020-10-25 07:50] LABS: ALANINE AMINOTRANSFERASE 9 U/L (0-55)
--- NOTE | 2020-10-25 07:54 | Diagnostic Imaging Report ---
EXAMINATION: Chest radiograph, portable AP view. DATE: 10/24/2020 10:47 PM INDICATION: 80-year-old female, dyspnea. COMPARISON: October 06, 2020. FINDINGS: There is a left-sided cardiac assist device with leads. The leads appear grossly intact. Stable overall appearance of the cardiomediastinal silhouette. There is no identified pneumothorax. There is nonspecific bibasilar airspace consolidation with probable bilateral pleural effusions. Pulmonary vascular markings are prominent. Overall appearance is similar to the comparison study. IMPRESSION: 1. Grossly unchanged nonspecific bibasilar airspace consolidation with probable bilateral pleural effusions. 2. Prominent pulmonary vascular markings which may potentially reflect pulmonary interstitial edema. 3. Overall appearance is similar to October 06, 2020. Dictated by: Dictated on workstation # [id number]
[2020-10-25] MEDS ORDERED: ADVAIR HFA 115/21 MCG INHALER 8 GM IH ONE (08:00)
[2020-10-25] MEDS ORDERED: POTASSIUM CL 10MEQ/50ML IVPB 50 ML IV SCH (08:15)
--- NOTE | 2020-10-25 08:49 | Diagnostic Imaging Report ---
EXAMINATION: Chest 1 view HISTORY: Chest pain COMPARISON: 10/24/2020 FINDINGS: Left subclavian pacemaker is present. Heart is enlarged, unchanged. Mild edema is unchanged. No pneumothorax. There are small pleural effusions. IMPRESSION: 1. Stable mild edema and enlarged heart. Dictated by: Dictated on workstation # [id number]
[2020-10-25] MEDS: ASPIRIN E.C. 81 MG (ECOTRIN) TAB PO SCH (09:10)
[2020-10-25] MEDS ORDERED: NS IV 1000 ML 1,000 ML ONE (09:17)
[2020-10-25] MEDS ORDERED: KCL 20 MEQ TAB (K-DUR) PO ONE (10:15)
--- NOTE | 2020-10-25 11:12 | Consultation-Cardiology ---
HPI-Cardiology Cardiology Consultation Date of Consultation 10/25/20 Date of Admission Time Seen by Provider: 11:07 Indication: chest pain HPI 80 years old lady with extensive history of coronary artery disease, multiple intervention last intervention was done in June [address] Valenzuela, history of hypertension and hyperlipidemia. Patient started to have shortness of breath and felt anxious and had tightness in her chest radiating to the back. Reported that she did not feel well on the morning of admission and did not take her medications, came into the emergency room and she was admitted, on my evaluation she reported that she is feeling better, denied any active pain. No shortness of breath. No palpitation. Home Medications & Allergies Allergies: Coded Allergies: Penicillins (Unverified Allergy, Unknown, 11/17/19) Home Medication List Reviewed: Yes TRT-Vflwsa-Badmqs Hx Patient Social History Marital Status: Employed/Student: retired Recreational Drug Use: No Smoking Status: Never a Smoker 2nd Hand Smoke Exposure: No Recent Hopitalizations: No Have you traveled recently?: No Alcohol Use?: No Immunizations Up To Date Tetanus Booster (TDap): Unknown Date of Pneumonia Vaccine: Jul 08, 2019 Past Medical History Discussed below Family Medical History Family Medical Hx Noncontributory Review of Systems-General Review of Systems Constitutional: no symptoms reported, see HPI, malaise EENTM: see HPI, no symptoms reported Respiratory: see HPI; No cough, No dyspnea on exertion, No hemoptysis, No orthopnea, No phlegm; short of breath; No stridor, No wheezing, No other Cardiovascular: see HPI, chest pain; No edema, No Hx of Intervention; palpitations; No syncope, No vascular heart diseas, No other Gastrointestinal: see HPI, abdominal pain Genitourinary: no symptoms reported, see HPI Musculoskeletal: see HPI, back pain Skin: no symptoms reported, see HPI Psychiatric/Neurological: See HPI, Anxiety Reviewed Test Results Reviewed Test Results Lab Laboratory Tests Test 10/24/20 22:30 10/25/20 00:25 10/25/20 00:45 10/25/20 04:30 Range/Units White Blood Count 8.9 4.3-11.0 10^3/uL Red Blood Count 4.25 3.80-5.11 10^6/uL Hemoglobin 10.3 L 11.5-16.0 g/dL Hematocrit 34 L 35-52 % Mean Corpuscular Volume 80 80-99 fL Mean Corpuscular Hemoglobin 24 L 25-34 pg Mean Corpuscular Hemoglobin Concent 30 L 32-36 g/dL Red Cell Distribution Width 18.0 H 10.0-14.5 % Platelet Count 310 130-400 10^3/uL Mean Platelet Volume 9.5 9.0-12.2 fL Immature Granulocyte % (Auto) 0 % Neutrophils (%) (Auto) 80 H 42-75 % Lymphocytes (%) (Auto) 10 L 12-44 % Monocytes (%) (Auto) 8 0-12 % Eosinophils (%) (Auto) 1 0-10 % Basophils (%) (Auto) 0 0-10 % Neutrophils # (Auto) 7.1 1.8-7.8 10^3/uL Lymphocytes # (Auto) 0.9 L 1.0-4.0 10^3/uL Monocytes # (Auto) 0.7 0.0-1.0 10^3/uL Eosinophils # (Auto) 0.1 0.0-0.3 10^3/uL Basophils # (Auto) 0.0 0.0-0.1 10^3/uL Immature Granulocyte # (Auto) 0.0 0.0-0.1 10^3/uL Prothrombin Time 28.7 H 12.2-14.7 SEC INR Comment 2.7 H 0.8-1.4 Activated Partial Thromboplast Time 37 H 24-35 SEC Sodium Level 141 135-145 MMOL/L Potassium Level 3.6 3.6-5.0 MMOL/L Chloride Level 105 98-107 MMOL/L Carbon Dioxide Level 23 21-32 MMOL/L Anion Gap 13 5-14 MMOL/L Blood Urea Nitrogen 8 7-18 MG/DL Creatinine 0.70 0.60-1.30 MG/DL Estimat Glomerular Filtration Rate > 60 BUN/Creatinine Ratio 11 Glucose Level 145 H 70-105 MG/DL Calcium Level 9.4 8.5-10.1 MG/DL Corrected Calcium 9.3 8.5-10.1 MG/DL Magnesium Level 1.8 1.6-2.4 MG/DL Total Bilirubin 1.0 0.1-1.0 MG/DL Aspartate Amino Transf (AST/SGOT) 15 5-34 U/L Alanine Aminotransferase (ALT/SGPT) 9 0-55 U/L Alkaline Phosphatase 116 40-136 U/L Troponin I < 0.028 < 0.028 0.037 H <0.028 NG/ML B-Type Natriuretic Peptide 2859.4 H <100.0 PG/ML Total Protein 7.4 6.4-8.2 GM/DL Albumin 4.1 3.2-4.5 GM/DL Urine Color YELLOW Urine Clarity CLEAR Urine pH 7.0 5-9 Urine Specific [place] 1.015 L 1.016-1.022 Urine Protein TRACE H NEGATIVE Urine Glucose (UA) NEGATIVE NEGATIVE Urine Ketones NEGATIVE NEGATIVE Urine Nitrite NEGATIVE NEGATIVE Urine Bilirubin NEGATIVE NEGATIVE Urine Urobilinogen 0.2 < = 1.0 MG/DL Urine Leukocyte Esterase NEGATIVE NEGATIVE Urine RBC (Auto) 2+ H NEGATIVE Urine RBC 2-5 H /HPF Urine WBC 0-2 /HPF Urine Squamous Epithelial Cells 0-2 /HPF Urine Crystals NONE /LPF Urine Bacteria TRACE /HPF Urine Casts NONE /LPF Urine Mucus NEGATIVE /LPF Urine Culture Indicated NO Test 10/25/20 06:46 10/25/20 07:22 10/25/20 10:40 Range/Units Glucometer 112 H 97 70-110 MG/DL White Blood Count 6.2 4.3-11.0 10^3/uL Red Blood Count 4.06 3.80-5.11 10^6/uL Hemoglobin 9.8 L 11.5-16.0 g/dL Hematocrit 33 L 35-52 % Mean Corpuscular Volume 80 80-99 fL Mean Corpuscular Hemoglobin 24 L 25-34 pg Mean Corpuscular Hemoglobin Concent 30 L 32-36 g/dL Red Cell Distribution Width 17.9 H 10.0-14.5 % Platelet Count 264 130-400 10^3/uL Mean Platelet Volume 9.6 9.0-12.2 fL Prothrombin Time 28.0 H 12.2-14.7 SEC INR Comment 2.6 H 0.8-1.4 Sodium Level 144 135-145 MMOL/L Potassium Level 2.9 L 3.6-5.0 MMOL/L Chloride Level 102 98-107 MMOL/L Carbon Dioxide Level 30 21-32 MMOL/L Anion Gap 12 5-14 MMOL/L Blood Urea Nitrogen 7 7-18 MG/DL Creatinine 0.67 0.60-1.30 MG/DL Estimat Glomerular Filtration Rate > 60 BUN/Creatinine Ratio 10 Glucose Level 106 H 70-105 MG/DL Calcium Level 8.8 8.5-10.1 MG/DL Corrected Calcium 9.0 8.5-10.1 MG/DL Total Bilirubin 0.9 0.1-1.0 MG/DL Aspartate Amino Transf (AST/SGOT) 14 5-34 U/L Alanine Aminotransferase (ALT/SGPT) 9 0-55 U/L Alkaline Phosphatase 101 40-136 U/L Total Protein 6.7 6.4-8.2 GM/DL Albumin 3.7 3.2-4.5 GM/DL Physical Exam Physical Exam Vital Signs Vital Signs - First Documented 10/25/20 03:06 Pulse Ox 100 Capillary Refill : Less Than 3 Seconds Height, Weight, BMI Height: '" Weight: lbs. oz. kg; 24.94 BMI Method: General Appearance: No Apparent Distress, WD/WN Eyes: Bilateral Eye Normal Inspection, Bilateral Eye PERRL, Bilateral Eye EOMI HEENT: PERRL/EOMI, TMs Normal, Normal ENT Inspection, Pharynx Normal, Moist Mu cous Membranes Neck: Full Range of Motion, Normal Inspection, Non Tender, Supple, Carotid Bruit Respiratory: Chest Non Tender, Normal Breath Sounds, No Accessory Muscle Use, No Respiratory Distress Cardiovascular: Regular Rate, Rhythm, No Edema, No Gallop, No JVD, Normal Peripheral Pulses, Systolic Murmur Gastrointestinal: Normal Bowel Sounds, No Organomegaly, No Pulsatile Mass, Non Tender, Soft Back: Normal Inspection, No CVA Tenderness, No Vertebral Tenderness Extremity: Normal Capillary Refill, Normal Inspection, Normal Range of Motion, Non Tender, No Calf Tenderness, No Pedal Edema Neurologic/Psychiatric: Alert, Oriented x3, No Motor/Sensory Deficits, Normal Mood/Affect Skin: Normal Color, Warm/Dry Lymphatic: No Adenopathy A/P-Cardiology Admission Diagnosis Unstable angina Coronary artery disease Hypertension Hyperlipidemia Assessment/Plan Unstable angina, non-ST elevation myocardial infarction, mild elevation in troponin level. Extensive cardiac history with multiple interventions in the past, I had a long discussion with the patient regarding her management plan, recommended cardiac catheterization, patient is concerned and worried and prefer to have medical management at this time. I will continue monitoring and restart her home medication. Hypokalemia, replace and monitor Coronary artery disease, history of multiple intervention. Last intervention was done on June 28, [address] aVlenzuela patient had total occlusion of the circumflex artery with successful balloon angioplasty and 50 percent residual stenosis, failed attempt to place a stent due to calcification, patient has severe stenosis in the stents in the LAD and underwent balloon angioplasty with [id number] residual stenosis known to have Synergy 3.5 x 28 and 3.0 by 16mm, the right coronary artery has multiple stents Synergy 4.0 x 38 and 3.5 x 38 that were patent with small vessel disease distally. Congestive heart failure, chronic compensated left ventricular systolic dysfunction, ischemic cardiomyopathy, echocardiogram in October 2019 showed ejection fraction 40-45 percent, apical and basal inferior wall hypokinesia, biatrial enlargement, moderate mitral regurgitation, moderate to severe tricuspid regurgitation, PA pressure 35 mmHg. Restart beta blockers and JAGDEEP inhibitor. Chronic permanent atrial fibrillation, rate is controlled, maintained on Coumadin, continue to monitor INR S/p Medtronic dual chamber pacemaker in 2016 at ([facility] - Dr Pierce). Followed by Dr. Valenzuela Carotid artery stenosis. 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 She does not recall the date of her stroke Gen weakness and limited ambulation Poor memory GERD/PUD MACARIO CARO MD Oct 25, 2020 11:12
--- NOTE | 2020-10-25 12:20 | History & Physical-Hospitalist ---
History of Present Illness HPI/Chief Complaint CC: Chest pain HPI: This is an 80yoWF chronically debilitated clinic patient of [facility] well known to me from prior admits who has a h/o severe CAD and angina who presents to the ER with complaints of worsened CP. Patient has refused cardiac cath by Dr Martinez. Currently she is doing well and is ready to eat lunch. Source: patient, RN/MD, old records Exam Limitations: no limitations Date Seen 10/25/20 Time Seen by a Provider: 11:00 Attending Physician Tamara Mclean DO PCP Self,Greg CASTELLON Referring Physician Date of Admission Oct 25, 2020 at 01:16 Home Medications & Allergies Home Medications Reviewed patient Home Medication Reconciliation performed by pharmacy medication reconciliations vehicle operator technician and/or nursing. Patients Allergies have been reviewed. Allergies Allergies Coded Allergies Penicillins (Unverified Allergy, Unknown, 11/17/19) Past Schsxnn-Nmiecp-Juzozz Hx Past Med/Social Hx: Reviewed Nursing Past Med/Soc Hx, Reviewed and Corrections made Patient Social History Marrital Status: Employed/Student: retired Alcohol Use: Denies Use Recreational Drug Use: No Smoking Status: Never a Smoker 2nd Hand Smoke Exposure: No Recent Foreign Travel: No Contact w/other who traveled: No Recent Hopitalizations: No Recent Infectious Disease Expo: No Immunizations Up To Date Tetanus Booster (TDap): Unknown Pediatric: Yes Date of Pneumonia Vaccine: Jul 08, 2019 Seasonal Allergies Seasonal Allergies: No Past Medical History Surgeries: Adenoidectomy, Cardiac, Coronary Stent, Pacemaker, Vascular Surgery Respiratory: Pneumonia hypoxia on home O2 since 06/26/20 Cardiac: Atrial Fibrillation, Coronary Artery Disease, High Cholesterol, Hypertension Neurological: Stroke Menopausal Musculoskeletal: Arthritis History of Blood Disorders: No Family History PSH: -CARDIAC CATHS--STENTS X 4 -RIGHT CAROTID STENT X 1 -PACEMAKER 2016 Review of Systems Constitutional: see HPI Cardiovascular: chest pain Physical Exam Physical Exam Vital Signs Vital Signs - First Documented 10/25/20 03:06 Pulse Ox 100 Capillary Refill : Less Than 3 Seconds Height, Weight, BMI Height: '" Weight: lbs. oz. kg; 24.94 BMI Method: General Appearance: No Apparent Distress, Chronically ill, Other (pale) Eyes: Right Eye Normal Inspection, Right Eye PERRL HEENT: PERRL/EOMI, Normal ENT Inspection, Pharynx Normal, Moist Mucous Membranes Neck: Full Range of Motion, Normal Inspection, Non Tender Respiratory: Chest Non Tender, Lungs Clear, Normal Breath Sounds, No Accessory Muscle Use, No Respiratory Distress Cardiovascular: No Edema, No Gallop, No JVD, No Murmur, Normal Peripheral Pulses, Irregularly Irregular, Tachycardia Gastrointestinal: Normal Bowel Sounds, No Organomegaly, No Pulsatile Mass, Non Tender, Soft Back: Normal Inspection, No CVA Tenderness, No Vertebral Tenderness Extremity: Normal Capillary Refill, Normal Inspection, Normal Range of Motion, Non Tender, No Calf Tenderness, No Pedal Edema Neurologic/Psychiatric: Alert, Oriented x3, No Motor/Sensory Deficits, Normal Mood/Affect Skin: Normal Color, Warm/Dry Lymphatic: No Adenopathy Results Results/Procedures Labs Laboratory Tests 10/24/20 22:30 10/25/20 07:22 Patient resulted labs reviewed. Assessment/Plan Admission Diagnosis Assessment: Chest pain c/w unstable angina NSTEMI h/o Pneumonia 06/2020 CHF AF Anxiety Severe debility Coumadin treatment Plan: Refused cath Monitor labs Fall risk Home meds Admission Status: Inpatient Order (span 2 midnights) Reason for Inpatient Admission: ustnable angina Diagnosis/Problems Diagnosis/Problems (1) NSTEMI (non-ST elevated myocardial infarction) (2) Acute on chronic heart failure Status: Acute (3) Supplemental oxygen dependent Status: Acute (4) Pacemaker (5) PVD (peripheral vascular disease) (6) CAD (coronary artery disease) (7) Atrial fibrillation TAMARA MCLEAN DO Oct 25, 2020 12:20
[2020-10-25] MEDS: FUROSEMIDE 20 MG (LASIX) TAB PO SCH (13:17)
[2020-10-25] MEDS: CLOPIDOGREL 75 MG (PLAVIX) TABLET PO SCH (13:17)
[2020-10-25] MEDS: lisINopril 20 MG (PRINIVIL) TABLET PO SCH (13:18)
[2020-10-25] MEDS: CARVEDILOL 12.5 MG (COREG) TABLET PO SCH (17:34)
[2020-10-26 04:04] LABS: BASOPHILS % (AUTO) 1 % (0-10); EOSINOPHILS # (AUTO) 0.2 10^3/uL (0.0-0.3); EOSINOPHILS % (AUTO) 3 % (0-10); HEMATOCRIT 32 % (35-52); HEMOGLOBIN 9.4 g/dL (11.5-16.0); LYMPHOCYTES # (AUTO) 1.2 10^3/uL (1.0-4.0); LYMPHOCYTES % (AUTO) 20 % (12-44); MEAN CORPUSCULAR HEMOGLOBIN 24 pg (25-34); MEAN CORPUSCULAR HGB CONC 30 g/dL (32-36); MEAN CORPUSCULAR VOLUME 80 fL (80-99); MEAN PLATELET VOLUME 9.9 fL (9.0-12.2); MONOCYTES # (AUTO) 0.6 10^3/uL (0.0-1.0); MONOCYTES % (AUTO) 10 % (0-12); NEUTROPHILS # (AUTO) 3.9 10^3/uL (1.8-7.8); NEUTROPHILS % (AUTO) 66 % (42-75); PLATELET COUNT 237 10^3/uL (130-400); WHITE BLOOD COUNT 5.8 10^3/uL (4.3-11.0)
[2020-10-26 04:11] LABS: INR 2.5 (0.8-1.4); PROTHROMBIN TIME PATIENT 27.7 SEC (12.2-14.7)
[2020-10-26 04:12] LABS: ALBUMIN 3.3 GM/DL (3.2-4.5); CHLORIDE 104 MMOL/L (98-107); POTASSIUM 3.7 MMOL/L (3.6-5.0); SODIUM 142 MMOL/L (135-145)
[2020-10-26 04:13] LABS: CALCIUM 8.9 MG/DL (8.5-10.1)
[2020-10-26 04:14] LABS: GLUCOSE 116 MG/DL (70-105)
[2020-10-26 04:15] LABS: TOTAL PROTEIN 6.1 GM/DL (6.4-8.2)
[2020-10-26 04:16] LABS: BILIRUBIN,TOTAL 0.7 MG/DL (0.1-1.0); CARBON DIOXIDE 29 MMOL/L (21-32)
[2020-10-26 04:18] LABS: ALKALINE PHOSPHATASE 90 U/L (40-136); CREATININE SERUM 0.72 MG/DL (0.60-1.30); GFR ESTIMATED > 60
[2020-10-26 04:19] LABS: BUN/CREATININE RATIO 17
[2020-10-26 04:21] LABS: ALANINE AMINOTRANSFERASE 8 U/L (0-55)
[2020-10-26] MEDS: NITROGLYCERIN 2% OINT 1 GM UNIT DOSE PACKET TOP SCH ×4 (06:30→23:33)
[2020-10-26 07:59] VITALS: BP 141/104
[2020-10-26] MEDS: CLOPIDOGREL 75 MG (PLAVIX) TABLET PO SCH (08:09)
[2020-10-26] MEDS: ASPIRIN E.C. 81 MG (ECOTRIN) TAB PO SCH (08:10)
[2020-10-26] MEDS: lisINopril 20 MG (PRINIVIL) TABLET PO SCH (08:10)
[2020-10-26] MEDS: PANTOPRAZOLE 40 MG (PROTONIX) TAB PO SCH (08:10)
[2020-10-26] MEDS: FUROSEMIDE 20 MG (LASIX) TAB PO SCH (08:10)
[2020-10-26] MEDS: CARVEDILOL 12.5 MG (COREG) TABLET PO SCH ×2 (08:10→17:43)
[2020-10-26] MEDS ORDERED: lisINopril 20 MG (PRINIVIL) TABLET PO SCH (09:00)
[2020-10-26] MEDS ORDERED: CLOPIDOGREL 75 MG (PLAVIX) TABLET PO SCH (09:00)
[2020-10-26] MEDS ORDERED: FUROSEMIDE 20 MG (LASIX) TAB PO SCH (09:00)
--- NOTE | 2020-10-26 09:00 | NUR ---
Received dietary consult for MST score. Given current PO intake, pt is not at risk for malnutrition at this time. Agustin Tony, MS RD LD
--- NOTE | 2020-10-26 10:43 | Progress Note ---
Subjective Subjective/Events-last exam Pt states she had chest pain again this morning. She is anxious about getting a cath, but has talked to her and plans to go ahead with it. Objective Exam Last Set of Vital Signs Vital Signs Date Time Temp Pulse Resp B/P (MAP) Pulse Ox O2 Delivery O2 Flow Rate FiO2 10/26/20 08:15 Nasal Cannula 3.00 10/26/20 07:59 36.1 71 16 141/104 (116) 98 Capillary Refill : Less Than 3 Seconds I&O Intake and Output 10/26/20 00:00 Intake Total 250 ml Output Total 4550 ml Balance -4300 ml Intake Oral 200 ml IV Total 50 ml Output Urine Total 4550 ml Daily Weight Change Yes, 2-13 lbs General: Alert, No Acute Distress Lungs: Clear to Auscultation, Normal Air Movement Heart: Other (irregularly irregular) Abdomen: Normal Bowel Sounds, Soft, Other (mild diffuse tenderness) Extremities: No Edema Neuro: Normal Speech Psych/Mental Status: Mental Status NL Results/Procedures Lab Laboratory Tests 10/25/20 20:44: Glucometer 110 10/26/20 03:38: White Blood Count 5.8, Red Blood Count 3.96, Hemoglobin 9.4L, Hematocrit 32L, Mean Corpuscular Volume 80, Mean Corpuscular Hemoglobin 24L, Mean Corpuscular Hemoglobin Concent 30L, Red Cell Distribution Width 17.8H, Platelet Count 237, Mean Platelet Volume 9.9, Immature Granulocyte % (Auto) 0, Neutrophils (%) (Auto) 66, Lymphocytes (%) (Auto) 20, Monocytes (%) (Auto) 10, Eosinophils (%) (Auto) 3, Basophils (%) (Auto) 1, Neutrophils # (Auto) 3.9, Lymphocytes # (Auto) 1.2, Monocytes # (Auto) 0.6, Eosinophils # (Auto) 0.2, Basophils # (Auto) 0.0, Immature Granulocyte # (Auto) 0.0, Prothrombin Time 27.7H, INR Comment 2.5H, Sodium Level 142, Potassium Level 3.7, Chloride Level 104, Carbon Dioxide Level 29, Anion Gap 9, Blood Urea Nitrogen 12, Creatinine 0.72, Estimat Glomerular Filtration Rate > 60, BUN/Creatinine Ratio 17, Glucose Level 116H, Calcium Level 8.9, Corrected Calcium 9.5, Total Bilirubin 0.7, Aspartate Amino Transf (AST/SGOT) 13, Alanine Aminotransferase (ALT/SGPT) 8, Alkaline Phosphatase 90, Troponin I 0.033H, B-Type Natriuretic Peptide 1552.8H, Total Protein 6.1L, Albumin 3.3 Assessment/Plan Assessment/Plan (1) Chest pain Status: Acute Assessment & Plan: Cardiology consulted, appreciate tecommendations, plan for cardiac catheterization. (2) Anticoagulated on Coumadin Status: Chronic Assessment & Plan: Waiting on INR to decrease for catheterization. (3) Atrial fibrillation Status: Chronic Assessment & Plan: Usually on coumadin, holding for procedure. Continue rate control meds. (4) CAD (coronary artery disease) Status: Chronic JOSE RAMON PETER MD Oct 26, 2020 10:43
--- NOTE | 2020-10-26 10:49 | Cardiology Progress Note ---
Subjective Date Seen by Provider: Oct 26, 2020 Time Seen by Provider: 10:48 Subjective/Events-last exam Patient had an episode of chest pain this morning, initially was refusing cardiac catheter, she agreed on the procedure after talking to her Review of Systems General: No Chills, No Night Sweats, No Fatigue, No Malaise, No Appetite, No Other HEENT: No Head Aches, No Visual Changes, No Eye Pain, No Ear Pain, No Dysphasia, No Sinus Congestion, No Post Nasal Drip, No Sore Throat, No Other Pulmonary: No Dyspnea, No Cough, No Pleuritic Chest Pain, No Other Cardiovascular: No: Chest Pain, Palpitations, Orthopnea, Paroxysmal Noc. Dyspnea, Edema, Lt Headedness, Other Objective-Cardiology Exam Last Set of Vital Signs Vital Signs 10/26/20 10/26/20 07:59 08:15 Temp 36.1 Pulse 71 Resp 16 B/P (MAP) 141/104 (116) Pulse Ox 98 O2 Delivery Nasal Cannula O2 Flow Rate 3.00 Capillary Refill : Less Than 3 Seconds I&O Intake and Output 10/26/20 00:00 Intake Total 250 ml Output Total 4550 ml Balance -4300 ml Intake Oral 200 ml IV Total 50 ml Output Urine Total 4550 ml Daily Weight Change Yes, 2-13 lbs General: Alert, Oriented X3, Cooperative HEENT: Atraumatic, PERRLA Neck: Supple, No JVD, No Thyromegaly Lungs: Clear to Auscultation, Normal Air Movement Heart: Normal S1, Normal S2, Other (systolic murmur at the left sternal border, irregular rhythm) Abdomen: Normal Bowel Sounds, Soft, No Tenderness, No Hepatosplenomegaly, No Masses Extremities: No Clubbing, No Cyanosis, No Edema, Normal Pulses, No Tenderness/Swelling Skin: No Rashes, No Breakdown, No Significant Lesion Neuro: Normal Gait, Normal Speech, Strength at 5/5 X4 Ext, Normal Tone, Sensation Intact Psych/Mental Status: Mental Status NL, Mood NL Results Lab Laboratory Tests 10/26/20 03:38 A/P-Cardiology Admission Diagnosis Unstable angina Coronary artery disease Hypertension Hyperlipidemia Assessment/Plan Unstable angina, non-ST elevation myocardial infarction, mild elevation in troponin level. Extensive cardiac history with multiple interventions in the past, I had a long discussion with the patient regarding her management plan, recommended cardiac catheterization, patient agreed to the procedure after discussing it with her , had previously significant bleed and hematoma of the catheter site, her INR is 2.5, I will wait until her INR is less than 2 Coronary artery disease, history of multiple intervention. Last intervention was done on June 28, [address] Valenzuela patient had total occlusion of the circumflex artery with successful balloon angioplasty and 50 percent residual stenosis, failed attempt to place a stent due to calcification, patient has severe stenosis in the stents in the LAD and underwent balloon angioplasty with [id number] residual stenosis known to have Synergy 3.5 x 28 and 3.0 by 16mm, the right coronary artery has multiple stents Synergy 4.0 x 38 and 3.5 x 38 that were patent with small vessel disease distally. Congestive heart failure, chronic compensated left ventricular systolic dysfunction, ischemic cardiomyopathy, echocardiogram in October 2019 showed ejection fraction 40-45 percent, apical and basal inferior wall hypokinesia, biatrial enlargement, moderate mitral regurgitation, moderate to severe tricuspid regurgitation, PA pressure 35 mmHg. Restart beta blockers and JAGDEEP inhibitor. Chronic permanent atrial fibrillation, rate is controlled, maintained on Coumadin, continue to monitor INR S/p Medtronic dual chamber pacemaker in 2017 at ([facility] - Dr Pierce). F ollowed by Dr. Valenzuela Carotid artery stenosis. 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 She does not recall the date of her stroke Gen weakness and limited ambulation Poor memory GERD/PUD MACARIO CARO MD Oct 26, 2020 10:49 am
[2020-10-26 11:39] VITALS: BP 104/53
[2020-10-26] MEDS ORDERED: DOCU100T7 PO (12:11)
[2020-10-26] MEDS ORDERED: CARV12.53 PO (12:11)
--- NOTE | 2020-10-26 12:21 | NUR ---
SPOKE WITH THE PT AND WENT THRU THE EXT MED HISTORY TO COMPLETE THE MED REC ON 09-08-2020 PT FILLED SERTRALINE 50MG BUT PT SAYS SHE IS NOT TAKING OTC MEDS: CALCIUM VIT B-12 VIT D3 STOOL SOFTENER TYLENOL
[2020-10-26] MEDS: ACETAMINOPHEN 500 MG TAB (TYLENOL) PO PRN (13:11)
[2020-10-26 15:50] VITALS: BP 103/56
--- NOTE | 2020-10-26 19:00 | NUR ---
Patient concerned about constipation. States hasn't had a BM since 10/24/20. Dr. Martinez & Dr. Mesa notified and orders received.
[2020-10-26] MEDS ORDERED: DOCUSATE SODIUM 100 MG (COLACE) CAP PO PRN (19:15)
[2020-10-26] MEDS: polyethylene glycoL POWDER 17 GM (MIRALAX) PACK PO PRN (19:32)
[2020-10-26 20:15] VITALS: BP 104/52
[2020-10-27 03:27] LABS: MEAN PLATELET VOLUME 9.5 fL (9.0-12.2); WHITE BLOOD COUNT 5.3 10^3/uL (4.3-11.0)
[2020-10-27 03:44] LABS: INR 2.9 (0.8-1.4); PROTHROMBIN TIME PATIENT 30.8 SEC (12.2-14.7)
[2020-10-27 03:48] LABS: CHLORIDE 102 MMOL/L (98-107); POTASSIUM 4.1 MMOL/L (3.6-5.0); SODIUM 140 MMOL/L (135-145)
[2020-10-27 03:49] LABS: CALCIUM 8.8 MG/DL (8.5-10.1); GLUCOSE 114 MG/DL (70-105)
[2020-10-27 03:51] LABS: CARBON DIOXIDE 28 MMOL/L (21-32)
[2020-10-27 03:53] LABS: CREATININE SERUM 0.73 MG/DL (0.60-1.30); GFR ESTIMATED > 60
[2020-10-27 03:54] LABS: BUN/CREATININE RATIO 18
[2020-10-27] MEDS: NITROGLYCERIN 2% OINT 1 GM UNIT DOSE PACKET TOP SCH ×4 (06:14→23:29)
[2020-10-27 07:15] VITALS: BP 152/72
--- NOTE | 2020-10-27 07:53 | Progress Note ---
Subjective Subjective/Events-last exam Still having chest pain at times. No other concerns. Objective Exam Last Set of Vital Signs Vital Signs Date Time Temp Pulse Resp B/P (MAP) Pulse Ox O2 Delivery O2 Flow Rate FiO2 10/27/20 07:15 36.5 65 21 152/72 (98) 99 Nasal Cannula 2.00 Capillary Refill : Less Than 3 Seconds I&O Intake and Output 10/27/20 00:00 Intake Total 490 ml Output Total 800 ml Balance -310 ml Intake Oral 490 ml Output Urine Total 800 ml General: Alert, No Acute Distress Lungs: Clear to Auscultation, Normal Air Movement Heart: Other (irregularly irregular, normal rate) Extremities: No Edema Neuro: Normal Speech Psych/Mental Status: Mood NL Results/Procedures Lab Laboratory Tests 10/27/20 03:10: White Blood Count 5.3, Red Blood Count 3.77L, Hemoglobin 9.0L, Hematocrit 30L, Mean Corpuscular Volume 79L, Mean Corpuscular Hemoglobin 24L, Mean Corpuscular Hemoglobin Concent 30L, Red Cell Distribution Width 17.8H, Platelet Count 210, Mean Platelet Volume 9.5, Prothrombin Time 30.8H, INR Comment 2.9H, Sodium Level 140, Potassium Level 4.1, Chloride Level 102, Carbon Dioxide Level 28, Anion Gap 10, Blood Urea Nitrogen 13, Creatinine 0.73, Estimat Glomerular Filtration Rate > 60, BUN/Creatinine Ratio 18, Glucose Level 114H, Calcium Level 8.8 Assessment/Plan Assessment/Plan (1) Chest pain Status: Acute Assessment & Plan: Cardiology consulted, appreciate tecommendations, plan for cardiac catheterization. (2) Anticoagulated on Coumadin Status: Chronic Assessment & Plan: Waiting on INR to decrease for catheterization. (3) Atrial fibrillation Status: Chronic Assessment & Plan: Usually on coumadin, holding for procedure. Continue rate control meds. (4) CAD (coronary artery disease) Status: Chronic JOSE RAMON PETER MD Oct 27, 2020 07:52
[2020-10-27] MEDS: NITROGLYCERIN 0.4 MG SL TABS BTL 25'S SL PRN ×2 (09:01→09:51)
[2020-10-27] MEDS: CARVEDILOL 12.5 MG (COREG) TABLET PO SCH ×2 (09:51→17:24)
[2020-10-27] MEDS: FUROSEMIDE 20 MG (LASIX) TAB PO SCH (09:51)
[2020-10-27] MEDS: CLOPIDOGREL 75 MG (PLAVIX) TABLET PO SCH (09:51)
[2020-10-27] MEDS: ASPIRIN E.C. 81 MG (ECOTRIN) TAB PO SCH (09:51)
[2020-10-27] MEDS: lisINopril 20 MG (PRINIVIL) TABLET PO SCH (09:51)
[2020-10-27] MEDS: PANTOPRAZOLE 40 MG (PROTONIX) TAB PO SCH (09:52)
[2020-10-27] MEDS: TOLTERODINE LA 4 MG (DETROL) CAP PO SCH (10:16)
--- NOTE | 2020-10-27 10:42 | Cardiology Progress Note ---
Subjective Date Seen by Provider: Oct 27, 2020 Time Seen by Provider: 10:41 Subjective/Events-last exam patient is laying down in bed, having mild chest discomfort today, has nitroglycerin patch. Review of Systems General: No Chills, No Night Sweats; Fatigue; No Malaise, No Appetite, No Other HEENT: No Head Aches, No Visual Changes, No Eye Pain, No Ear Pain, No Dysph cony, No Sinus Congestion, No Post Nasal Drip, No Sore Throat, No Other Pulmonary: No Dyspnea, No Cough, No Pleuritic Chest Pain, No Other Cardiovascular: Chest Pain; No: Palpitations, Orthopnea, Paroxysmal Noc. Dyspnea, Edema, Lt Headedness, Other Objective-Cardiology Exam Last Set of Vital Signs Vital Signs 10/27/20 07:15 Temp 36.5 Pulse 65 Resp 21 B/P (MAP) 152/72 (98) Pulse Ox 99 O2 Delivery Nasal Cannula O2 Flow Rate 2.00 Capillary Refill : Less Than 3 Seconds I&O Intake and Output 10/27/20 00:00 Intake Total 490 ml Output Total 800 ml Balance -310 ml Intake Oral 490 ml Output Urine Total 800 ml General: Alert, No Acute Distress HEENT: Atraumatic, PERRLA Neck: Supple, No JVD, No Thyromegaly Lungs: Clear to Auscultation, Normal Air Movement Heart: Normal S1, Normal S2, Other (irregularly irregular) Abdomen: Normal Bowel Sounds, Soft, Other (mild diffuse tenderness) Extremities: No Edema Skin: No Rashes, No Breakdown, No Significant Lesion Neuro: Normal Speech Psych/Mental Status: Mental Status NL Results Lab Laboratory Tests 10/27/20 03:10 A/P-Cardiology Admission Diagnosis Unstable angina Coronary artery disease Hypertension Hyperlipidemia Assessment/Plan Unstable angina, non-ST elevation myocardial infarction, mild elevation in troponin level. Extensive cardiac history with multiple interventions in the past, I had a long discussion with the patient regarding her management plan, recommended cardiac catheterization, patient agreed to the procedure after discussing it with her , had previously significant bleed and hematoma of the catheter site, her INR is 2.9 today still having increasing in her INR, Coumadin has been on hold since admission. Planning to repeat INR in the morning. Had another episode of chest pain today, I'll give her sublingual nitroglycerin and monitor her EKG and repeat troponin level Coronary artery disease, history of multiple intervention. Last intervention was done on June 28, [address] Valenzuela patient had total occlusion of the circumflex artery with successful balloon angioplasty and 50 percent residual stenosis, failed attempt to place a stent due to calcification, patient has severe stenosis in the stents in the LAD and underwent balloon angioplasty with [id number] residual stenosis known to have Synergy 3.5 x 28 and 3.0 by 16mm, the right coronary artery has multiple stents Synergy 4.0 x 38 and 3.5 x 38 that were patent with small vessel disease distally. Congestive heart failure, chronic compensated left ventricular systolic dysfunction, ischemic cardiomyopathy, echocardiogram in October 2019 showed ejection fraction 40-45 percent, apical and basal inferior wall hypokinesia, biatrial enlargement, moderate mitral regurgitation, moderate to severe tricusp id regurgitation, PA pressure 35 mmHg. Restart beta blockers and JAGDEEP inhibitor. Chronic permanent atrial fibrillation, rate is controlled, maintained on Coumadin, continue to monitor INR S/p Medtronic dual chamber pacemaker in 2016 at ([facility] - [facility]). Followed by Dr. Valenzuela Carotid artery stenosis. 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 She does not recall the date of her stroke Gen weakness and limited ambulation Poor memory GERD/PUD MACARIO CARO MD Oct 27, 2020 10:42
[2020-10-27 11:07] VITALS: BP 143/74
--- NOTE | 2020-10-27 11:12 | NUR ---
1050 DUE TO CHANGES IN STAFFING CARE OF PT TO THIS RN, REPORT RECEIVED FROM Agustin ERNANDEZ RN. PT SITTING UP IN CHAIR VISITING WITH , CALL LIGHT AND OTHER PERSONAL ITEMS WITHIN REACH, NO NEEDS NOTED AT THIS TIME, NO C/O OF PAIN, WILL CONTINUE TO MONITOR.
[2020-10-27 15:19] VITALS: BP 123/77
[2020-10-27] MEDS: ACETAMINOPHEN 500 MG TAB (TYLENOL) PO PRN (17:25)
[2020-10-27 20:52] VITALS: BP 131/78
[2020-10-27 23:31] VITALS: BP 127/56
[2020-10-28] VITALS (8 sets, daily range): BP systolic 121–136; BP diastolic 52–68
[2020-10-28 04:14] LABS: HEMOGLOBIN 9.2 g/dL (11.5-16.0); MEAN PLATELET VOLUME 9.4 fL (9.0-12.2); WHITE BLOOD COUNT 5.6 10^3/uL (4.3-11.0)
[2020-10-28 04:26] LABS: INR 2.8 (0.8-1.4); PROTHROMBIN TIME PATIENT 29.6 SEC (12.2-14.7)
[2020-10-28] MEDS: NITROGLYCERIN 2% OINT 1 GM UNIT DOSE PACKET TOP SCH ×3 (06:13→17:41)
[2020-10-28] MEDS: lisINopril 20 MG (PRINIVIL) TABLET PO SCH (08:00)
[2020-10-28] MEDS: CLOPIDOGREL 75 MG (PLAVIX) TABLET PO SCH (08:00)
[2020-10-28] MEDS: CARVEDILOL 12.5 MG (COREG) TABLET PO SCH ×2 (08:00→17:40)
[2020-10-28] MEDS: ASPIRIN E.C. 81 MG (ECOTRIN) TAB PO SCH (08:00)
[2020-10-28] MEDS: PANTOPRAZOLE 40 MG (PROTONIX) TAB PO SCH (08:01)
[2020-10-28] MEDS: TOLTERODINE LA 4 MG (DETROL) CAP PO SCH (08:01)
[2020-10-28] MEDS: FUROSEMIDE 20 MG (LASIX) TAB PO SCH (08:01)
[2020-10-28] MEDS: ACETAMINOPHEN 500 MG TAB (TYLENOL) PO PRN (09:25)
[2020-10-28] MEDS ORDERED: NS IV 500 ML 500 ML IV SCH (10:45)
--- NOTE | 2020-10-28 12:38 | Cardiology Progress Note ---
Subjective Date Seen by Provider: Oct 28, 2020 Time Seen by Provider: 12:37 Subjective/Events-last exam Patient is laying down in bed, feeling better. No new complaint Review of Systems General: No Chills, No Night Sweats; Fatigue, Malaise; No Appetite, No Other HEENT: No Head Aches, No Visual Changes, No Eye Pain, No Ear Pain, No Dysphasia, No Sinus Congestion, No Post Nasal Drip, No Sore Throat, No Other Pulmonary: No Dyspnea, No Cough, No Pleuritic Chest Pain, No Other Cardiovascular: No: Chest Pain, Palpitations, Orthopnea, Paroxysmal Noc. Dyspnea, Edema, Lt Headedness, Other Objective-Cardiology Exam Last Set of Vital Signs Vital Signs 10/28/20 11:39 Temp 36.2 Pulse 65 Resp 20 B/P (MAP) 129/63 (85) Pulse Ox 97 O2 Delivery Nasal Cannula O2 Flow Rate 2.00 Capillary Refill : Less Than 3 Seconds I&O Intake and Output 10/28/20 00:00 Intake Total 700 ml Output Total 1150 ml Balance -450 ml Intake Oral 700 ml Output Urine Total 1150 ml General: Alert, No Acute Distress HEENT: Atraumatic, PERRLA Neck: Supple, No JVD, No Thyromegaly Lungs: Clear to Auscultation, Normal Air Movement Heart: Other (irregularly irregular, normal rate) Abdomen: Normal Bowel Sounds, Soft, Other (mild diffuse tenderness) Extremities: No Edema Skin: No Rashes, No Breakdown, No Significant Lesion Neuro: Normal Speech Psych/Mental Status: Mood NL Results Lab Laboratory Tests 10/28/20 03:55 A/P-Cardiology Admission Diagnosis Unstable angina Coronary artery disease Hypertension Hyperlipidemia Assessment/Plan Unstable angina, non-ST elevation myocardial infarction, mild elevation in troponin level. Extensive cardiac history with multiple interventions in the past, I had a long discussion with the patient regarding her management plan, recommended cardiac catheterization, patient agreed to the procedure after discussing it with her , had previously significant bleed and hematoma of the catheter site, her INR is 2.9 today still having increasing in her INR, Coumadin has been on hold since admission, I will give 1 unit of FFP and reevaluate INR. Patient had chest pain yesterday responded sublingual nitroglycerin no acute EKG changes, troponin continue to be normal today. Coronary artery disease, history of multiple intervention. Last intervention was done on June 28, [address] Valenzuela patient had total occlusion of the circumflex artery with successful balloon angioplasty and 50 percent residual stenosis, failed attempt to place a stent due to calcification, patient has severe stenosis in the stents in the LAD and underwent balloon angioplasty with [id number] residual stenosis known to have Synergy 3.5 x 28 and 3.0 by 16mm, the right coronary artery has multiple stents Synergy 4.0 x 38 and 3.5 x 38 that were patent with small vessel disease distally. Congestive heart failure, chronic compensated left ventricular systolic dysfunction, ischemic cardiomyopathy, echocardiogram in October 2019 showed ejection fraction 40-45 percent, apical and basal inferior wall hypokinesia, biatrial enlargement, moderate mitral regurgitation, moderate to severe tricuspid regurgitation, PA pressure 35 mmHg. Restart beta blockers and JAGDEEP inhibitor. Chronic permanent atrial fibrillation, rate is controlled, maintained on Coumadin, continue to monitor INR S/p Medtronic dual chamber pacemaker in 2016 at ([facility] - [facility]). Followed by Dr. Valenzuela Carotid artery stenosis. 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 She does not recall the date of her stroke Gen weakness and limited ambulation Poor memory GERD/PUD MACARIO CARO MD Oct 28, 2020 12:38
[2020-10-28] MEDS ORDERED: NS IV 500 ML 500 ML ONE (13:29)
--- NOTE | 2020-10-28 15:36 | Progress Note ---
Subjective Subjective/Events-last exam Feeling pretty well today, nitro patch helped with chest pain. Objective Exam Last Set of Vital Signs Vital Signs Date Time Temp Pulse Resp B/P (MAP) Pulse Ox O2 Delivery O2 Flow Rate FiO2 10/28/20 15:21 36.2 62 20 130/62 100 Nasal Cannula 3.00 Capillary Refill : Less Than 3 Seconds I&O Intake and Output 10/28/20 00:00 Intake Total 700 ml Output Total 1150 ml Balance -450 ml Intake Oral 700 ml Output Urine Total 1150 ml General: Alert, No Acute Distress Lungs: Clear to Auscultation, Normal Air Movement Heart: Regular Rate, No Murmurs Results/Procedures Lab Laboratory Tests 10/28/20 03:55: White Blood Count 5.6, Red Blood Count 3.88, Hemoglobin 9.2L, Hematocrit 31L, Mean Corpuscular Volume 80, Mean Corpuscular Hemoglobin 24L, Mean Corpuscular Hemoglobin Concent 30L, Red Cell Distribution Width 17.7H, Platelet Count 230, Mean Platelet Volume 9.4, Prothrombin Time 29.6H, INR Comment 2.8H, Troponin I < 0.028 10/28/20 06:15: Glucometer 130H 10/28/20 10:38: Glucometer 140H 10/28/20 15:23: Glucometer 109 Assessment/Plan Assessment/Plan (1) Chest pain Status: Acute Assessment & Plan: Cardiology consulted, appreciate tecommendations, plan for cardiac catheterization. (2) Anticoagulated on Coumadin Status: Chronic Assessment & Plan: Waiting on INR to decrease for catheterization. (3) Atrial fibrillation Status: Chronic Assessment & Plan: Usually on coumadin, holding for procedure. Continue rate control meds. (4) CAD (coronary artery disease) Status: Chronic JOSE RAMON PETER MD Oct 28, 2020 15:36
[2020-10-28 16:23] LABS: INR 1.8 (0.8-1.4)
--- NOTE | 2020-10-28 16:25 | NUR ---
THIS NURSE NOTIFIED DR CARO OF INR RESULTS. DR CARO SAID PT MAY EAT NOW, NPO AT MIDNIGHT, AND WILL DO HEART CATH TOMORROW.
--- NOTE | 2020-10-28 18:50 | NUR ---
THIS NURSE UPDATED TERENCE PER PT REQUEST.
[2020-10-29] VITALS (13 sets, daily range): BP systolic 116–164; BP diastolic 55–109
[2020-10-29] MEDS: NITROGLYCERIN 2% OINT 1 GM UNIT DOSE PACKET TOP SCH ×5 (00:09→23:36)
[2020-10-29] MEDS ORDERED: MIDAZOLAM 5 MG/5 ML (VERSED) VIAL ONE (06:34)
[2020-10-29] MEDS ORDERED: fentaNYL INJECTION 100 MCG/2 ML AMP ONE ×2 (06:34→11:53)
[2020-10-29] MEDS ORDERED: LIDOCAINE 1% INJ 20 ML 20 ML VIAL ONE ×2 (06:34→07:13)
[2020-10-29] MEDS ORDERED: HEParin (CATH LAB) 2,000 ML IV ONE (06:34)
[2020-10-29] MEDS ORDERED: NS IV 1000 ML 0 ML ONE (06:34)
--- NOTE | 2020-10-29 07:01 | Cardiac Procedure Note-CS/ASA ---
Pre-Procedure Note Pre-Op Procedure Note H&P Reviewed The H&P was reviewed, patient examined and no changes noted. Date H&P Reviewed: Oct 29, 2020 Time H&P Reviewed: 07:01 Conscious Sedation Pre-Proced Time 07:01 ASA Score 3 For ASA 3 and 4: Consider anesthesia and medical clearance. Also, for patients with a history of failed moderate sedation consider anesthesia. Airway Lungs Heart ASA score ASA 1: a normal healthy patient ASA 2: a patient with a mild systemic disease (mid diabetes, controlled hypertension, obesity x ASA 3: a patient with a severe systemic disease that limits activity (angina, COPD, prior Myocardial infarction) ASA 4: a patient with an incapacitating disease that is a constant threat to life (CHF, renal failure) ASA 5: a moribund patient not expected to survive 24 hrs. (ruptured aneurysm) ASA 6: a declared brain- patient whose organs are being harvested. For emergent operations, add the letter E after the classification Mallampati Classification Grade 3 Sedation Plan Analgesia, Amnesia, Plan communicated to team members, Discussed options with patient/fam, Discussed risks with patient/fam The patient is an appropriate candidate to undergo the planned procedure, sedation, and anesthesia. The patient immediately re-assessed prior to indication. MACARIO CARO MD Oct 29, 2020 07:01
[2020-10-29] MEDS ORDERED: HEParin 1000 UNIT/ML (10ML VIAL) FOR BOLUS ONE (07:21)
[2020-10-29] MEDS ORDERED: NITRO DRIP 25000 MCG/D5W 250 ML IV ONE (07:22)
[2020-10-29] MEDS ORDERED: ASPIRIN 325 MG (5 GR) TABLET ONE (07:43)
[2020-10-29] MEDS ORDERED: CLOPIDOGREL 300 MG (PLAVIX) TABLET PO ONE (07:43)
[2020-10-29 08:00] LABS: PROTHROMBIN TIME PATIENT 22.7 SEC (12.2-14.7)
[2020-10-29] MEDS ORDERED: PATIENT MAY USE OWN MEDS, ALL PO SCH (08:00)
[2020-10-29] MEDS: CARVEDILOL 12.5 MG (COREG) TABLET PO SCH ×2 (08:00→17:45)
[2020-10-29] MEDS: CLOPIDOGREL 75 MG (PLAVIX) TABLET PO SCH (09:00)
[2020-10-29] MEDS: ASPIRIN E.C. 81 MG (ECOTRIN) TAB PO SCH (09:00)
--- NOTE | 2020-10-29 10:09 | Cardiology Progress Note ---
Subjective Date Seen by Provider: Oct 29, 2020 Time Seen by Provider: 10:07 Subjective/Events-last exam patient is laying down in bed, no new complaint, groin is healing slowly Review of Systems General: No Chills, No Night Sweats, No Fatigue, No Malaise, No Appetite, No Other HEENT: No Head Aches, No Visual Changes, No Eye Pain, No Ear Pain, No Dysphasia, No Sinus Congestion, No Post Nasal Drip, No Sore Throat, No Other Pulmonary: No Dyspnea, No Cough, No Pleuritic Chest Pain, No Other Cardiovascular: No: Chest Pain, Palpitations, Orthopnea, Paroxysmal Noc. Dyspnea, Edema, Lt Headedness, Other Objective-Cardiology Exam Last Set of Vital Signs Vital Signs 10/29/20 10/29/20 04:00 08:17 Temp 36.3 Pulse 78 Resp 16 B/P (MAP) 125/56 (79) Pulse Ox 100 O2 Delivery Nasal Cannula O2 Flow Rate 2.00 Capillary Refill : Less Than 3 Seconds I&O Intake and Output 10/29/20 00:00 Intake Total 960 ml Output Total 3275 ml Balance -2315 ml Intake Oral 900 ml Other 60 ml Output Urine Total 3275 ml General: Alert, No Acute Distress HEENT: Atraumatic, PERRLA Neck: Supple, No JVD, No Thyromegaly Lungs: Clear to Auscultation, Normal Air Movement Heart: Regular Rate, No Murmurs Abdomen: Normal Bowel Sounds, Soft, Other (mild diffuse tenderness) Extremities: No Edema Skin: No Rashes, No Breakdown, No Significant Lesion Neuro: Normal Speech Psych/Mental Status: Mood NL A/P-Cardiology Admission Diagnosis Unstable angina Coronary artery disease Hypertension Hyperlipidemia Assessment/Plan Unstable angina, non-ST elevation myocardial infarction, mild elevation in troponin level. Extensive cardiac history with multiple interventions in the past, chest post cardiac catheterization and stenting to the circumflex artery with excellent results Patient had chest pain yesterday responded sublingual nitroglycerin no acute EKG changes, troponin continue to be normal today. Coronary artery disease, history of multiple intervention. Last intervention was done on June 28, [address] Valenzuela patient had total occlusion of the circumflex artery with successful balloon angioplasty and 50 percent residual stenosis, failed attempt to place a stent due to calcification, patient has severe stenosis in the stents in the LAD and underwent balloon angioplasty with [id number] residual stenosis known to have Synergy 3.5 x 28 and 3.0 by 16mm, the right coronary artery has multiple stents Synergy 4.0 x 38 and 3.5 x 38 that were patent with small vessel disease distally.cardiac catheterization carried out on October 29, 2020 with stenting to the circumflex artery using Abiola 2.5 x 15 mm expanded to 2.6 mm with excellent results. Continue to monitor Congestive heart failure, chronic compensated left ventricular systolic dysfunction, ischemic cardiomyopathy, echocardiogram in October 2019 showed ejection fraction 40-45 percent, apical and basal inferior wall hypokinesia, biatrial enlargement, moderate mitral regurgitation, moderate to severe tricuspid regurgitation, PA pressure 35 mmHg. Restart beta blockers and JAGDEEP inhibitor. Chronic permanent atrial fibrillation, rate is controlled, maintained on Coumadin, continue to monitor INR S/p Medtronic dual chamber pacemaker in 2016 at ([facility] - Dr Pierce). Followed by Dr. Valenzuela Carotid artery stenosis. 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 She does not recall the date of her stroke Gen weakness and limited ambulation Poor memory GERD/PUD MACARIO CARO MD Oct 29, 2020 10:08
[2020-10-29] MEDS ORDERED: fentaNYL INJECTION 100 MCG/2 ML AMP IVP PRN (12:15)
--- NOTE | 2020-10-29 13:34 | Physician Query Clarification ---
"Physician Query-General Query to Physician: The medical record reflects the following clinical scenario: History/Risk factors: Extensive Cardiac History, Multiple past interventions, [place]/HTN Clinical Findings: Worsened CP, cant breath, Troponin 0.037 -> 0.033 Treatment: ER treatment: ASA, Nitroglycerin, Cardiac consult, Plans for cardiac cath when INR down Question: Do you agree with the impression of NSTEMI per Michelel Quarles and Dr. Mclean? If you agree, please document in Progress Notes or Discharge Summary. 1. Yes; will document NSTEMI present on admission in the Progress Notes/Dis charge summary 2. No; will continue to document Chest pain in the Progress Notes/Discharge summary 3. Other; will document explanation of clinical findings 4. Clinically undetermined; no explanation for clinical findings Please remember a lack of response to the above will prompt a phone page by CDI/coding staff. In responding to this query, please exercise your independent professional judgment. The purpose of this communication is to more accurately reflect the complexity of your patients condition. The fact that a question is asked does not imply that any particular answer is desired or expected. Thank you for timely response to this clarification. Conchita Morillo, MSN, RN RN Specialist-Clinical Doc Improvement CD -Health Info Mgmt Operations [address] [facility], [place] t: [phone] | f: [phone] If you are unable to reach me at my extension, I may be working from home. Please contact me at [phone] PHYSICIAN RESPONSE: Based on the clinical findings in the record, please respond to the query above on this document as an addendum. Physician Response: Physician Response 1 If you have questions please contact: Market Investigator: Ext: Thank you for your time and cooperation. Clinical Footwear Sales Representative/Market Investigator This is a permanent part of the medical record CONCHITA MORILLO Oct 29, 2020 13:34 JOSE RAMON PETER MD Oct 29, 2020 21:19"
--- NOTE | 2020-10-29 13:44 | Physician Query Clarification ---
"Physician Query-General Query to Physician: The medical record reflects the following clinical scenario: History/Risk factors: Chronic compensated left ventricular systolic dysfunction, ischemic cardiomyopathy Clinical Findings: Cant Breath, BNP 2859 reduced to 1552 after treatment Treatment: IV lasix in the ER, I and O, 2 D Echo, Cardiology consult Question: Do you agree with the impression of Acute on chronic heart failure per Dr. Mclean and ER provider Sophia LANGSTON? If you agree, please document in Progress Notes or Discharge Summary. 1. Yes; will document Acute on Chronic (systolic) Heart failure Present on admission in the Progress Notes/discharge summary 2. No; will continue to document Chest pain/CAD in the Progress Notes/discharge summary 3. Other; will document explanation of clinical findings 4. Clinically undetermined; no explanation for clinical findings Please remember a lack of response to the above will prompt a phone page by CDI/coding staff. In responding to this query, please exercise your independent professional judgment. The purpose of this communication is to more accurately reflect the complexity of your patients condition. The fact that a question is asked does not imply that any particular answer is desired or expected. Thank you for timely response to this clarification. Conchita Morillo, MSN, RN RN Specialist-Clinical Doc Improvement CD -Health Info Mgmt Operations [address] [facility] t: [phone] | f: [phone] If you are unable to reach me at my extension, I may be working from home. Please contact me at [phone] PHYSICIAN RESPONSE: Based on the clinical findings in the record, please respond to the query above on this document as an addendum. Physician Response: Physician Response 1 If you have questions please contact: Road Oiling Truck Driver: Ext: Thank you for your time and cooperation. Clinical Post Adoption Coordinator/Road Oiling Truck Driver This is a permanent part of the medical record CONCHITA MORILLO Oct 29, 2020 13:44 JOSE RAMON PETER MD Oct 29, 2020 21:20"
--- NOTE | 2020-10-29 16:19 | Cardiac Cath Report ---
Cardiac Cath Report Physician (s)/Sales Enablement Analyst (s) Physician MACARIO CARO MD Pre-Procedure Diagnosis Pre-Procedure Diagnosis: non-ST elevation myocardial infarction Post-Procedure Note Procedure Start Date: Oct 29, 2020 Name of Procedure: left heart catheterization Stent to the circumflex artery Findings/Procedure Note PROCEDURE NOTE: 80 years old lady with extensive cardiac history multiple interventions in the past, multiple stents of the LAD, attempt for stenting the circumflex artery has failed had balloon angioplasty and stent to the right coronary artery in the past. Admitted with acute chest pain, had mild troponin elevation. After explaining the procedure to the patient, all pros and cons were explained, all questions were answered. The patient signed the consent and then she was placed on the cardiac catheterization laboratory. Groin was prepped SL fashion local anesthesia was used. Sheath placed in the Right femoral artery. Seven right and left catheter were used to access the coronary system. Pigtail was used to access the left ventricular cavity. Left ventriculogram was not done Patient was given 4000 units of heparin, EBU guide was advanced to the left coronary system, BMW wire was used and was unable to cross distally, I exchanged it to whisper extra support wire advanced to the distal circumflex artery predi latation with 2.5 balloon was done then with significant difficulty I was able to advance a Abiola 2.5 x 12 mm stent and was inflated under 15 concepcion to 2.6 mm with excellent results no residual stenosis was noted At the end of the procedure the sheath was removed. Closure device was used FINDINGS: Hemodynamics LV was not measured Aorta 131/56 mean of 84 ANATOMY: Left Main has no significant obstructive disease Left Anterior Descending as multiple stents that are patent with moderate disease distally Left Circumflex has severe stenosis at the midportion, subtotal occlusion successful balloon angioplasty and stenting using Abiola 2.5 x 12 mm with excellent results Right Coronary Artery as patent stents with no obstructive disease CONCLUSION: 1. Severe stenosis at the mid circumflex artery with successful complex intervention with deployment of Abiola 2.5 x 12 mm with no residual stenosis 2. Patent stents/multiple stents in the LAD and multiple stents in the right coronary artery with moderate disease DISCUSSION AND RECOMMENDATION: ontinue to maximize medical therapy Anesthesia Type: Conscious Sedation Estimated blood loss (mL): 35 ml Contrast Amount: 78 ml Total Radiation Dose: 841 mGy Post-Procedure Diagnosis Post-operative diagnosis: non-ST elevation myocardial infarction Coronary artery disease Hypertension Hyperlipidemia MACARIO CARO MD Oct 29, 2020 16:19
[2020-10-29] MEDS: TOLTERODINE LA 4 MG (DETROL) CAP PO SCH (17:45)
[2020-10-29] MEDS: FUROSEMIDE 20 MG (LASIX) TAB PO SCH (17:45)
[2020-10-29] MEDS: lisINopril 20 MG (PRINIVIL) TABLET PO SCH (17:45)
[2020-10-29] MEDS: PANTOPRAZOLE 40 MG (PROTONIX) TAB PO SCH (17:46)
[2020-10-29] MEDS: NS IV 1000 ML 1,000 ML IV SCH ×2 (17:46→17:49)
--- NOTE | 2020-10-29 17:47 | NUR ---
plavix and asa non-admined due to s/p heart cath.
--- NOTE | 2020-10-29 20:49 | Progress Note ---
Subjective Subjective/Events-last exam Had cath this morning shortly before my exam. Appears tired, but states feeling okay. Objective Exam Last Set of Vital Signs Vital Signs Date Time Temp Pulse Resp B/P (MAP) Pulse Ox O2 Delivery O2 Flow Rate FiO2 10/29/20 19:55 36.2 85 12 127/80 (96) 99 Nasal Cannula 3.00 Capillary Refill : Less Than 3 Seconds I&O Intake and Output 10/29/20 00:00 Intake Total 960 ml Output Total 3275 ml Balance -2315 ml Intake Oral 900 ml Other 60 ml Output Urine Total 3275 ml General: Alert, No Acute Distress Lungs: Clear to Auscultation, Normal Air Movement Heart: Other (irregularly irregular) Extremities: No Edema Psych/Mental Status: Mental Status NL, Mood NL Results/Procedures Lab Laboratory Tests 10/29/20 05:26: Glucometer 108 10/29/20 07:23: Prothrombin Time 22.7H, INR Comment 2.0H 10/29/20 09:22: Activated Partial Thromboplast Time 165*H 10/29/20 10:39: Glucometer 96 10/29/20 11:10: Activated Partial Thromboplast Time 46H 10/29/20 15:13: Glucometer 81 10/29/20 20:16: Glucometer 212H Assessment/Plan Assessment/Plan (1) Chest pain Status: Acute Assessment & Plan: Cardiology consulted, appreciate recommendations, plan for cardiac catheterization. 10/29 cath done this am, will await Cardiology recs. (2) Anticoagulated on Coumadin Status: Chronic Assessment & Plan: Waiting on INR to decrease for catheterization. (3) Atrial fibrillation Status: Chronic Assessment & Plan: Usually on coumadin, holding for procedure. Continue rate control meds. (4) CAD (coronary artery disease) Status: Chronic JOSE RAMON PETER MD Oct 29, 2020 20:49
[2020-10-30 03:31] VITALS: BP 133/57
[2020-10-30 03:34] LABS: HEMOGLOBIN 9.4 g/dL (11.5-16.0); MEAN PLATELET VOLUME 9.6 fL (9.0-12.2); WHITE BLOOD COUNT 6.2 10^3/uL (4.3-11.0)
[2020-10-30 03:47] LABS: CHLORIDE 105 MMOL/L (98-107); POTASSIUM 4.2 MMOL/L (3.6-5.0); SODIUM 141 MMOL/L (135-145)
[2020-10-30 03:49] LABS: CALCIUM 9.2 MG/DL (8.5-10.1); GLUCOSE 102 MG/DL (70-105)
[2020-10-30 03:51] LABS: CARBON DIOXIDE 25 MMOL/L (21-32)
[2020-10-30 03:53] LABS: CREATININE SERUM 0.63 MG/DL (0.60-1.30); GFR ESTIMATED > 60
[2020-10-30 03:54] LABS: BUN/CREATININE RATIO 16
[2020-10-30] MEDS: NITROGLYCERIN 2% OINT 1 GM UNIT DOSE PACKET TOP SCH (05:38)
[2020-10-30] MEDS: NS IV 1000 ML 1,000 ML IV SCH ×2 (06:35→13:36)
[2020-10-30] MEDS ORDERED: warFARin 1 MG (COUMADIN) TAB PO SCH (07:30)
[2020-10-30 08:00] VITALS: BP 127/80
[2020-10-30] MEDS ORDERED: ENOXAPARIN 80 MG/0.8 ML (LOVENOX) SYR SC SCH (08:00)
[2020-10-30] MEDS: PANTOPRAZOLE 40 MG (PROTONIX) TAB PO SCH (10:16)
[2020-10-30] MEDS: ASPIRIN E.C. 81 MG (ECOTRIN) TAB PO SCH (10:16)
[2020-10-30] MEDS: FUROSEMIDE 20 MG (LASIX) TAB PO SCH (10:16)
[2020-10-30] MEDS: TOLTERODINE LA 4 MG (DETROL) CAP PO SCH (10:17)
[2020-10-30] MEDS: CARVEDILOL 12.5 MG (COREG) TABLET PO SCH (10:17)
[2020-10-30] MEDS: CLOPIDOGREL 75 MG (PLAVIX) TABLET PO SCH (10:17)
[2020-10-30] MEDS: lisINopril 20 MG (PRINIVIL) TABLET PO SCH (10:17)
[2020-10-30] MEDS: polyethylene glycoL POWDER 17 GM (MIRALAX) PACK PO PRN (10:25)
[2020-10-30 12:00] VITALS: BP 144/73
[2020-10-30] MEDS ORDERED: ENOX100D4 SQ (13:17)
[2020-10-30 13:20] LABS: INR 1.9 (0.8-1.4); PROTHROMBIN TIME PATIENT 22.2 SEC (12.2-14.7)
--- NOTE | 2020-10-30 13:28 | Discharge Summary ---
Discharge Summary Instructions for Patient Via [facility], Assessment/Instructions Follow up with Dr. Vargas on 11/05 at 9:45 am. Follow up with Dr. Martinez as instructed. You will need to use lovenox shots daily until your INR is between 2 and 3 for at least 2 days in a row. Physician to follow Patient: Dr. Vargas Discharge Diet for Home: Cardiac Diet, Coumadin Patient Diet Hospital Course Date of Admission: Oct 25, 2020 at 01:16 Admission Diagnosis : Family Physician/Provider: Greg Vargas MD Date of Discharge: 10/30/20 Discharge Diagnosis: See problem list Hospital Course: Pt admitted with chest pain, acute on chronic systolic heart failure and chronic atrial fibrillation. She had elevated BNP, received IV lasix with improvement. She had mildly elevated troponin and persistent chest pain, so after INR was in safe range, catheterization was done by Dr. Martinez and stent was placed in mid circumflex. She was discharged with enoxaparin 1.5 mg/kg for bridging while coumadin was restarted. Labs and Pending Lab Test: Laboratory Tests 10/29/20 15:13: Glucometer 81 10/29/20 20:16: Glucometer 212H 10/30/20 03:15: White Blood Count 6.2, Red Blood Count 3.98, Hemoglobin 9.4L, Hematocrit 32L, Mean Corpuscular Volume 80, Mean Corpuscular Hemoglobin 24L, Mean Corpuscular Hemoglobin Concent 30L, Red Cell Distribution Width 17.9H, Platelet Count 240, Mean Platelet Volume 9.6, Sodium Level 141, Potassium Level 4.2, Chloride Level 105, Carbon Dioxide Level 25, Anion Gap 11, Blood Urea Nitrogen 10, Creatinine 0.63, Estimat Glomerular Filtration Rate > 60, BUN/Creatinine Ratio 16, Glucose Level 102, Calcium Level 9.2 10/30/20 13:01: Prothrombin Time [Pending], INR Comment [Pending] Home Meds Active Enoxaparin Sodium 100 Mg/1 Ml Syringe 100 Mg SQ DAILY Nitroglycerin 0.4 Mg Tab.subl 0 Mg SL UD PRN Reported Stool Softener (Docusate Sodium) 100 Mg Tablet 100 Mg PO DAILY PRN Carvedilol 12.5 Mg Tablet 12.5 Mg PO BID Warfarin Sodium 1 Mg Tablet 1.5 Mg PO MO,,ДМИТРИЙ,FRI,SAT TAKES AT BEDTIME 1.5MG PO ON MON,,, MON AND SAT 1MG ON MON,MON Warfarin Sodium 1 Mg Tablet 1 Mg PO MON,MON TAKES AT BEDTIME 1.5MG PO ON MON,,, MON AND SAT 1MG ON SUN,MON Vitamin D3 (Cholecalciferol (Vitamin D3)) 50 Mcg Capsule 50 Mcg PO DAILY Tolterodine Tartrate ER (Tolterodine Tartrate) 4 Mg Cap.er.24h 4 Mg PO DAILY Calcium Carbonate 600 Mg Tablet 600 Mg PO Q48H Lisinopril 20 Mg Tablet 20 Mg PO DAILY Cartia Xt (Diltiazem HCl) 180 Mg Cap.er.24h 180 Mg PO DAILY Vitamin B-12 (Cyanocobalamin) 100 Mcg Tablet 1,000 Mcg PO DAILY Plavix (Clopidogrel Bisulfate) 75 Mg Tablet 75 Mg PO DAILY Lipitor (Atorvastatin Calcium) 40 Mg Tablet 40 Mg PO DAILY Acetaminophen 325 Mg Tablet 650 Mg PO Q6H PRN Patient Allergies: Coded Allergies: Penicillins (Unverified Allergy, Unknown, 11/17/19) Home Health Need/Face to Face Date of Face to Face: Oct 30, 2020 Clinical Findings: Generalized weakness and fatigue I have seen Pt [id number]: Yes Discharged To: Home Diagnosis/Conditions: See problem list Problems/Diagnosis/Condition: (1) Anticoagulated on Coumadin (2) CAD (coronary artery disease) (3) Atrial fibrillation (4) Chest pain (5) Supplemental oxygen dependent (6) NSTEMI (non-ST elevated myocardial infarction) (7) Stented coronary artery (8) Acute on chronic heart failure Patient is Homebound due to: Muscle weakness Homebound Status Due to the above stated illness, injury or surgical procedure (medical condition or diagnosis) and associated clinical findings, the patient is homebound because of his/her inability to leave home except with aid of a supportive device and/or person AND leaving the home requires a considerable and taxing effort or is medically contraindicated. Pt req the following assistanc: Aid of another person Home Health Nursing Orders Home Health Services Order: Nursing Services, Physical Therapy-Evaluate & Treat Give enoxaparin injection daily Check INR daily, if INR between 2 and 3 for two consecutive days, discontinue enoxaparin. Home Health Infusion Therapy Line Start Date: Oct 24, 2020 Therapy Orders Therapy Orders: PT to assess for OT Certify Stmt I certify that this patient is under my care and that I, a nurse practitioner or a physician; a delivery assistant working with me, had a face to face encounter that - meets the physician face to face encounter requirements with this patient as dated. Discharge Physical Exam General: Alert, No Acute Distress Lungs: Clear to Auscultation, Normal Air Movement Heart: Other (Irregularly irregular) Abdomen: Normal Bowel Sounds, Soft Neuro: Normal Speech Psych/Mental Status: Mental Status NL JOSE RAMON PETER MD Oct 30, 2020 13:24
--- NOTE | 2020-10-30 14:27 | NUR ---
RD ASSESSMENT PMHx: pneumonia; afib; CAD; hypercholesterolemia; HTN; stroke; PT INTERACTION: Pt was awake and pleasant during nutrition assessment for LOS. Pt states current appetite is good. Note avg PO intake 83% x3d, per chart review. Pt states following a regular diet at home, and has no issues with chewing food, but some issues with swallowing food. "Sometimes when I swallow, it gets caught in my throat." Note pt is missing several teeth, per visual assessment. Pt states no recent issues with n/v/c/d. Note last BM was 2/4, and pt currently on bowel regimen of colace PRN, and miralax PRN, per chart review. Pt states recent wt loss, but was unsure of amount/timeframe. Note recent 6# wt loss x4mon, per chart review. Est. kcal needs: 7968-8970 kcal | 25-30 kcal/kg Est. Pro needs: 54-68 g Pro | 0.8-1.0 g Pro/kg PES STATEMENT: Swallowing difficulty (NC-1.1) related to motor causes ("sometimes food gets stuck in my throat"), as evidenced by pt interview. INTERVENTION: Continue with current diet order of CHO 60g/m 1snack diet. Pt may benefit from swallow evaluation to determine appropriate diet consistency. Will continue to follow and reassess as pt needs, intake, and status change. Froy SANCHEZ, MS RD LD [phone] cell
--- NOTE | 2020-10-30 14:34 | NUR ---
CM/SS: Visit with pt as per plan for discharge. As pt may be dismissed to home on Monday10/31/20. Plan: Pt return home and have [facility]. Summary: Pt has had [facility] in the past and will have it at time of discharge due to her having Lovenox injections. Pt does not feel comfortable doing them herself. She is ok for home care to assist in giving the injections. Pt already has oxygen through [facility] in [place]. She does have a portable tank that family can bring with them at time of discharge. Pt is educated that there may be a copay at the pharmacy for the injection, she is ok with that and reports her grand daughter can help her if needed. Pt is wished well.
[2020-10-30] MEDS ORDERED: warFARin 3 MG (COUMADIN) TAB PO SCH (21:00)
[2020-11-01] MEDS ORDERED: warFARin 1 MG (COUMADIN) TAB PO SCH (21:00)
== END 2020-10-30 15:23 | disposition home health service (06) | DRG 246 ==
LOC: EDUNIT# 22:07 → ER 22:09 → CSD 10-25 01:16
PROVIDERS: ADMIT Internal Medicine; ATTEND Family Medicine
PROC: 027034Z Dilation of Coronary Artery, One Artery with Drug-eluting Intraluminal Device, Percutaneous Approach (ICD-10-PCS; principal; 2020-10-29)
PROC: 4A023N7 Measurement of Cardiac Sampling and Pressure, Left Heart, Percutaneous Approach (ICD-10-PCS; 2020-10-29)
PROC: B2111ZZ Fluoroscopy of Multiple Coronary Arteries using Low Osmolar Contrast (ICD-10-PCS; 2020-10-29)
DX: I25.110 Atherosclerotic heart disease of native coronary artery with unstable angina pectoris (principal); I50.23 Acute on chronic systolic (congestive) heart failure; I21.4 Non-ST elevation (NSTEMI) myocardial infarction; I48.21 Permanent atrial fibrillation; I42.9 Cardiomyopathy, unspecified; E78.00 Pure hypercholesterolemia, unspecified; E87.6 Hypokalemia; M19.90 Unspecified osteoarthritis, unspecified site; I11.0 Hypertensive heart disease with heart failure; F41.9 Anxiety disorder, unspecified; R53.81 Other malaise; I25.2 Old myocardial infarction; Z79.01 Long term (current) use of anticoagulants; Z79.82 Long term (current) use of aspirin; Z95.5 Presence of coronary angioplasty implant and graft; Z95.0 Presence of cardiac pacemaker
CPT/HCPCS: 36415; 51702; 71045; 80048; 80053; 81000; 82962; 83735; 83880; 84484; 85025; 85027; 85610; 85730; 86900; 86901; 93005; 93041; 93306; 93454; 94760; 96374; 96375

== ENCOUNTER → 2020-11-24 | Outpatient (CLI) | payer MEDICARE ==
[~2020-11-24] MED LIST changes: +CATHETER FLUSH 10 ML SYR IV PRN; +DOCU100T7 PO; +ENOX100D4 SQ; +HOLD METFORMIN - RECEIVED CONTRAST 20 ML VIAL IV SCH; +IOHEXOL 350 MG/ML 100 ML (OMNIPAQUE 350) VIAL IV ONE; -LISI-552 PO; +LISI20TA26 PO; +NS 100 ML (IVPB) BAG IV ONE
--- NOTE | 2020-11-24 11:23 | Diagnostic Imaging Report ---
EXAM: CT ANGIO NECK W TECHNIQUE: 3-D reconstructions, including MIPS, of the angiographic images are created and reviewed by the radiologist. INDICATION: Carotid artery stenosis. COMPARISON: CTA head and neck 11/01/2019. FINDINGS: Conventional aortic arch. Calcified atherosclerotic disease results in 50-79% narrowing of the right subclavian artery origin. Right common and internal carotid artery stent is patent. There is 50-79% narrowing within the midportion of the stent, at the level of C2, similar to the prior exam. There is also 50-79% narrowing of the distal left common carotid artery and left internal carotid artery origin multifocal low-grade less than 50% narrowing involving the bilateral vertebral arteries. The visualized craig of Correa is intact. Cardiac pacer. Moderate left and large right pleural effusions are partially visualized. Geographic groundglass opacities in the lung apices could be due to fluid overload. Semisolid pulmonary nodules in both lungs measuring up to 0.7 cm. No acute osseous findings. IMPRESSION: 1. Right common to internal carotid artery stent is patent with a region of narrowing in its midportion of 50-79%. 2. 50-79% narrowing of the left internal carotid artery origin and distal left common carotid artery. 3. 50-79% narrowing of the right subclavian artery origin. 4. Moderate to large bilateral pleural effusions partially visualized. 5. Geographic groundglass opacities in the lung apices and pulmonary nodules measuring up to 0.7 cm. Recommend nonemergent dedicated chest CT for further evaluation if this is unknown clinical entity. Dictated by: Dictated on workstation # [id number]
== END ==
LOC: RAD 09:15
PROVIDERS: ATTEND Internal Medicine Cardiovascular Disease
DX: I65.23 Occlusion and stenosis of bilateral carotid arteries (principal); J90 Pleural effusion, not elsewhere classified
CPT/HCPCS: 70498

== ENCOUNTER → 2021-03-23 | Outpatient (CLI) | payer MEDICARE ==
[~2021-03-23] MED LIST changes: -CATHETER FLUSH 10 ML SYR IV PRN; -HOLD METFORMIN - RECEIVED CONTRAST 20 ML VIAL IV SCH; -IOHEXOL 350 MG/ML 100 ML (OMNIPAQUE 350) VIAL IV ONE; -NS 100 ML (IVPB) BAG IV ONE
--- NOTE | 2021-03-23 13:29 | Diagnostic Imaging Report ---
INDICATION: Left-sided abdominal pain. COMPARISON: CT dated 07/08/2020 FINDINGS: Supine and upright views of the abdomen show a nondistended bowel gas pattern. No abnormal air fluid levels or free intraperitoneal air is seen. Extraosseous calcification is noted projecting over the right upper abdominal quadrant, but this is felt to be contained within the bowel given its change in position between the upright and supine views. Additional calcification is also seen medial to this on the supine view, but is felt to correspond to vascular calcification seen on previous CT. Bony and soft tissue structures are within normal limits. No organomegaly is identified. Accompanying upright chest shows normal heart size and pulmonary vascularity. The lungs are well aerated and clear. The mediastinum is normal in appearance. Left-sided dual-lead pacemaker is present. IMPRESSION: 1. No bowel obstruction or free air. 2. Normal chest. No pneumonia or pulmonary edema. 3. Extraosseous calcifications of the right upper abdominal quadrant with considerations as above. Dictated by: Dictated on workstation # [id number]
--- NOTE | 2021-03-23 14:16 | Diagnostic Imaging Report ---
INDICATION: Left-sided rib pain. COMPARISON: Acute abdominal series from earlier same day FINDINGS: 2 views of the left ribs were obtained. There is suggestion of nondisplaced rib fracture involving the inferolateral rib on the left. Exact number is indeterminate, as several loops are seen to overlap. Suspected deformity is also only visualized on the AP view. Included portions of the left lung are clear. IMPRESSION: 1. Suspected inferolateral left rib fracture as described above. Dictated by: Dictated on workstation # [id number]
== END ==
LOC: RAD FS 10:17
PROVIDERS: ATTEND Family Medicine
DX: R07.81 Pleurodynia (principal); R10.9 Unspecified abdominal pain; R19.31 Right upper quadrant abdominal rigidity
CPT/HCPCS: 71100; 74022

== ENCOUNTER → 2021-06-02 | Outpatient (CLI) | payer MEDICARE ==
[~2021-06-02] MED LIST changes: -TOLT4CAP13 PO; +TOLT4CAP26 PO
--- NOTE | 2021-06-02 10:30 | Diagnostic Imaging Report ---
INDICATION: Chest pain radiating to back. Patient has prior history of rib fractures. TIME OF EXAM: 10:18 AM. COMPARISON: Correlation is made with the prior chest from 10/06/2020. FINDINGS: The heart size is stable. The cardiac pacemaker remains in place. The lungs are clear. No infiltrates are seen. There is no effusion or pneumothorax. IMPRESSION: No acute cardiopulmonary process is detected. Dictated by: Dictated on workstation # [id number]
== END ==
LOC: RAD FS 09:59
PROVIDERS: ATTEND Family Medicine
DX: J45.909 Unspecified asthma, uncomplicated (principal); R07.81 Pleurodynia; Z87.81 Personal history of (healed) traumatic fracture
CPT/HCPCS: 71046

== ENCOUNTER 2021-08-09 16:29 | Inpatient (IN) | payer MEDICARE ==
[~2021-08-09] VITALS: Ht 165 cm; Wt 67.6 kg
[~2021-08-09 16:29] MED LIST changes: +POTA-179 PO; -POTA20TA15 PO
[2021-08-09] MEDS ORDERED: fentaNYL INJ 100 MCG/2 ML AMP IVP STA (16:55)
[2021-08-09 16:57] LABS: BASOPHILS % (AUTO) 0 % (0-10); EOSINOPHILS # (AUTO) 0.2 10^3/uL (0.0-0.3); EOSINOPHILS % (AUTO) 2 % (0-10); HEMATOCRIT 42 % (35-52); HEMOGLOBIN 13.7 g/dL (11.5-16.0); LYMPHOCYTES # (AUTO) 1.1 10^3/uL (1.0-4.0); LYMPHOCYTES % (AUTO) 12 % (12-44); MEAN CORPUSCULAR HEMOGLOBIN 30 pg (25-34); MEAN CORPUSCULAR HGB CONC 33 g/dL (32-36); MEAN CORPUSCULAR VOLUME 90 fL (80-99); MEAN PLATELET VOLUME 9.4 fL (9.0-12.2); MONOCYTES # (AUTO) 0.8 10^3/uL (0.0-1.0); MONOCYTES % (AUTO) 9 % (0-12); NEUTROPHILS # (AUTO) 6.7 10^3/uL (1.8-7.8); NEUTROPHILS % (AUTO) 75 % (42-75); PLATELET COUNT 247 10^3/uL (130-400)
--- NOTE | 2021-08-09 17:02 | ED Fall/Injury ---
General Chief Complaint: Trauma-Non Activation Stated Complaint: FALL Nursing Triage Note: PT PRESENTS TO ED VIA EMS FROM HOME WITH COMPLAINTS OF UNWITNESSED FALL WHEN PT TRIPPED OVER HER DOG. PT UNSURE IF SHE HAD LOC BUT REPORTS HEARD HER FALL AND CAME TO HELP HER RIGHT AWAY AND SHE WAS AWAKE WHEN HE GOT TO HER. PT REPORTS L HIP, THIGH, AND KNEE PAIN. PT ALSO REPORTS R KNEE PAIN. History of Present Illness Date Seen by Provider: Aug 09, 2021 Time Seen by Provider: 16:30 Initial Comments 81-year-old female brought by EMS for pain in her left hip and thigh. She reports she was at home trying to step over her dog, when she lost her balance causing her to fall into the wall. When EMS arrived she was lying on the ground and required assistance, she was unable to bear weight on the left leg. She is unsure if she hit her head, she is not complaining of headache or any head pain and no neck or back pain. Her was home, when she fell. She is on Plavix and Coumadin for A-Fib, atherosclerosis and CAD. N-STEMI March 2020. Location Injury Occurred: HOME Occurred: just prior to arrival Severity: moderate Injuries/Pain Location: lower extremity (Left hip) Context: lost balance Loss of Consciousness: no loss of consciousness Associated Symptoms (Fall): No Abdominal Pain, No Chest Pain, No Confusion, No Lightheadedness; Muscle Spasms (left leg); No Neck Pain, No Shortness of Air, No Slurred Speech; Trouble Walking Allergies and Home Medications Allergies Coded Allergies: Penicillins (Unverified Allergy, Unknown, 11/17/19) Patient Home Medication List Home Medication List Reviewed: Yes Acetaminophen (Acetaminophen) 325 Mg Tablet, 650 MG PO Q6H PRN for PAIN-MILD (1- 4), (Reported) Entered as Reported by: JOSELITO ESPINOSA on 11/17/19 2240 Atorvastatin Calcium (Lipitor) 40 Mg Tablet, 40 MG PO DAILY, (Reported) Entered as Reported by: JOSELITO ESPINOSA on 11/17/19 2240 Calcium Carbonate (Calcium Carbonate) 600 Mg Tablet, 600 MG PO Q48H, (Reported) Entered as Reported by: CANDELARIO VASQUEZ on 11/18/19 0950 Carvedilol (Carvedilol) 12.5 Mg Tablet, 12.5 MG PO BID, (Reported) Entered as Reported by: CANDELARIO VASQUEZ on 10/26/20 121 Cholecalciferol (Vitamin D3) (Vitamin D3) 50 Mcg Capsule, 50 MCG PO DAILY, (Reported) Entered as Reported by: CANDELARIO VASQUEZ on 02/24/20 1029 Clopidogrel Bisulfate (Plavix) 75 Mg Tablet, 75 MG PO DAILY, (Reported) Entered as Reported by: JOSELITO ESPINOSA on 11/17/192239 Cyanocobalamin (Vitamin B-12) 100 Mcg Tablet, 1,000 MCG PO DAILY, (Reported) Entered as Reported by: JOSELITO ESPINOSA on 11/17/192239 Diltiazem HCl (Cartia Xt) 180 Mg Cap.er.24h, 180 MG PO DAILY, (Reported) Entered as Reported by: JOSELITO ESPINOSA on 11/17/192239 Docusate Sodium (Stool Softener) 100 Mg Tablet, 100 MG PO DAILY PRN for CONST IPATION-1ST LINE, (Reported) Entered as Reported by: CANDELARIO VASQUEZ on 10/26/20 121 Enoxaparin Sodium (Enoxaparin Sodium) 100 Mg/1 Ml Syringe, 100 MG SQ DAILY Prescribed by: JOSE RAMON PETER on 10/30/20 1317 Lisinopril (Lisinopril) 20 Mg Tablet, 20 MG PO DAILY, (Reported) Entered as Reported by: JOSELITO ESPINOSA on 11/17/192239 Nitroglycerin (Nitroglycerin) 0.4 Mg Tab.subl, 0 MG SL UD PRN for CHEST PAIN (ANGINA) Prescribed by: SIXTO ANAND on 07/01/20 1104 Tolterodine Tartrate (Tolterodine Tartrate ER) 4 Mg Cap.er.24h, 4 MG PO DAILY, (Reported) Entered as Reported by: CANDELARIO VASQUEZ on 02/24/20 102 Warfarin Sodium (Warfarin Sodium) 1 Mg Tablet, 1 MG PO MON,MON, (Reported) Entered as Reported by: CANDELARIO VASQUEZ on 06/30/201707 Warfarin Sodium (Warfarin Sodium) 1 Mg Tablet, 1.5 MG PO MO,TU,ДМИТРИЙ,FRI,SAT, (Reported) Entered as Reported by: CANDELARIO VASQUEZ on 06/30/201707 Review of Systems Review of Systems Constitutional: no symptoms reported, see HPI Musculoskeletal: see HPI, joint pain (left hip), muscle pain (left leg), other (slight shortening, external rotation left leg) All Other Systems Reviewed Negative Unless Noted: Yes Past Xnhlysf-Gdbmsi-Ezsqzk Hx Patient Social History Tobacco Use?: No Substance use?: No Alcohol Use?: No Pt feels they are or have been: No Immunizations Up To Date Tetanus Booster (TDap): Unknown PED Vaccines UTD: Yes Seasonal Allergies Seasonal Allergies: No Past Medical History Surgeries: Yes Adenoidectomy, Cardiac, Coronary Stent, Pacemaker, Vascular Surgery Respiratory: Yes (CHRONIC COUGH; PNEUMONIA X1; BRONCHITIS ) Pneumonia, Sleep Apnea Cardiac: Yes (PACEMAKER 2017;CARDIAC STENTS X 4; RIGHT CAROTID STENT X 1;ANGIOPLASTIES) Atrial Fibrillation, Cardiomyopathy, Coronary Artery Disease, Heart Attack, High Cholesterol, Hypertension, Peripheral Vascular Neurological: Yes (CVA 2016--NO RESIDUAL EFFECTS; STATES ONLY SYMPTOM WAS HEADACHE. 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 PLUS ANGIOPLASTIES. -CARDIAC CATH 03/03/20-BY DR. LEAHY CONCLUSIONS: Successful balloon angioplasty of 99% proximal stenosis of the second obtuse marginal with reduction of stenosis to approximately 50% and improvement of flow from CODY 2 to CODY 3. -CARDIAC CATH 06/29/[address] LEAHY- CONCLUSIONS: 1. Coronary artery disease as detailed above. The left circumflex artery had a near total occlusion that was reduced to less than 50% with balloon angioplasty. The left anterior descending artery is known to have Synergy 3.5 x 28 and 3.0 x 16 mm stents that were exhibiting 90% stenosis. This was reduced to less than 50% with balloon angioplasty. The right coronary artery is known to have Synergy 4.0 x 38 and 3.5 x 38 stents that are patent. All vessels have diffuse moderate disease. 2. Ischemic cardiomyopathy with apical akinesis to dyskinesis and left ventricular ejection fraction approximately 40%. 3. Elevated left ventricular end-diastolic pressure. -RIGHT CAROTID STENT X 1 -PACEMAKER 2016 ADDITIONAL PMH: -MULTIPLE NSTEMI'S -ADMITTED 06/28/20-07/01/20 FOR NSTEMI -ADMITTED 07/13/20- FOR SEPSIS AND PNEUMONIA Physical Exam Vital Signs Vital Signs - First Documented Capillary Refill : Less Than 3 Seconds Height, Weight, BMI Height: '" Weight: lbs. oz. kg; 23.00 BMI Method: General Appearance: WD/WN, no apparent distress Neck: non-tender, full range of motion, supple, normal inspection Cardiovascular: normal peripheral pulses (pedal pulses 2 + and symmetric. ), regular rate, rhythm, no edema Respiratory: chest non-tender, lungs clear Gastrointestinal: normal bowel sounds, non tender, soft; No rebound, No tenderness Back: normal inspection, no vertebral tenderness Extremities: normal inspection, normal capillary refill, pelvis stable, other (full ROM active and passive right LE. LOM left Leg, secondary to hip pain. Full ROM to left ankle/foot, but pain in hip with knee ROM. Full sensation bilat LEs) Neurologic/Psychiatric: no motor/sensory deficits, alert, normal mood/affect, oriented x 3 [place] Coma Score Best Eye Response: (4) Open Spontaneously Best Verbal Response: (5) Oriented Best Motor Response: (6) Obeys Commands [place] Total: 15 Progress/Results/Core Measures Results/Orders Lab Results Laboratory Tests Test 08/09/21 16:30 08/09/21 17:20 08/09/21 18:30 Range/Units White Blood Count 9.0 4.3-11.0 10^3/uL Red Blood Count 4.65 3.80-5.11 10^6/uL Hemoglobin 13.7 11.5-16.0 g/dL Hematocrit 42 35-52 % Mean Corpuscular Volume 90 80-99 fL Mean Corpuscular Hemoglobin 30 25-34 pg Mean Corpuscular Hemoglobin Concent 33 32-36 g/dL Red Cell Distribution Width 14.0 10.0-14.5 % Platelet Count 247 130-400 10^3/uL Mean Platelet Volume 9.4 9.0-12.2 fL Immature Granulocyte % (Auto) 2 % Neutrophils (%) (Auto) 75 42-75 % Lymphocytes (%) (Auto) 12 12-44 % Monocytes (%) (Auto) 9 0-12 % Eosinophils (%) (Auto) 2 0-10 % Basophils (%) (Auto) 0 0-10 % Neutrophils # (Auto) 6.7 1.8-7.8 10^3/uL Lymphocytes # (Auto) 1.1 1.0-4.0 10^3/uL Monocytes # (Auto) 0.8 0.0-1.0 10^3/uL Eosinophils # (Auto) 0.2 0.0-0.3 10^3/uL Basophils # (Auto) 0.0 0.0-0.1 10^3/uL Immature Granulocyte # (Auto) 0.1 0.0-0.1 10^3/uL Prothrombin Time 23.0 H 12.2-14.7 SEC INR Comment 2.0 H 0.8-1.4 Activated Partial Thromboplast Time 33 24-35 SEC Sodium Level 140 135-145 MMOL/L Potassium Level 4.2 3.6-5.0 MMOL/L Chloride Level 104 98-107 MMOL/L Carbon Dioxide Level 24 21-32 MMOL/L Anion Gap 12 5-14 MMOL/L Blood Urea Nitrogen 11 7-18 MG/DL Creatinine 0.69 0.60-1.30 MG/DL Estimat Glomerular Filtration Rate 81 BUN/Creatinine Ratio 16 Glucose Level 121 H 70-105 MG/DL Calcium Level 9.5 8.5-10.1 MG/DL Corrected Calcium 9.4 8.5-10.1 MG/DL Total Bilirubin 0.7 0.1-1.0 MG/DL Aspartate Amino Transf (AST/SGOT) 32 5-34 U/L Alanine Aminotransferase (ALT/SGPT) 21 0-55 U/L Alkaline Phosphatase 127 40-136 U/L Troponin I < 0.028 <0.028 NG/ML Total Protein 7.6 6.4-8.2 GM/DL Albumin 4.1 3.2-4.5 GM/DL SARS-CoV-2 RNA (RT-PCR) Not Detected Not Detecte Urine Color YELLOW Urine Clarity SL CLOUDY Urine pH 6.0 5-9 Urine Specific [place] 1.025 H 1.016-1.022 Urine Protein NEGATIVE NEGATIVE Urine Glucose (UA) NEGATIVE NEGATIVE Urine Ketones NEGATIVE NEGATIVE Urine Nitrite POSITIVE H NEGATIVE Urine Bilirubin NEGATIVE NEGATIVE Urine Urobilinogen 0.2 < = 1.0 MG/DL Urine Leukocyte Esterase TRACE H NEGATIVE Urine RBC (Auto) 2+ H NEGATIVE Urine RBC 5-10 H /HPF Urine WBC 0-2 /HPF Urine Squamous Epithelial Cells RARE /HPF Urine Crystals NONE /LPF Urine Bacteria LARGE H /HPF Urine Casts NONE /LPF Urine Mucus NEGATIVE /LPF Urine Culture Indicated YES My Orders Orders - FREDDY MARTINEZ Chest 1 View, Ap/Pa Only (08/09/21 16:43) Pelvis With Left Hip 2-3 Views (08/09/21 16:43) Cbc With Automated Diff (08/09/21 16:43) Comprehensive Metabolic Panel (08/09/21 16:43) Protime With Inr (08/09/21 16:43) Partial Thromboplastin Time (08/09/21 16:43) Troponin I (08/09/21 16:43) Ua Culture If Indicated (08/09/21 16:43) Fentanyl Inj (Sublimaze Injection) (08/09/21 16:55) Covid 19 Inhouse Test (08/09/21 17:16) Ekg Tracing (08/09/21 18:15) Vital Signs/I&O 08/09/21 08/09/21 16:32 16:32 Temp 36.1 36.1 Pulse 71 71 Resp 18 18 B/P (MAP) 201/99 (133) 201/99 (133) Pulse Ox 95 95 Blood Pressure Mean: 133 Progress Progress Note : Time: 16:30 Progress Note Patient seen and evaluated, will obtain labs, chest x-ray, pelvis and left hip. 171 Fentanyl 25 mcg for pain. 174 patient to X-ray, code called. When we arrived she was alert, breathing, and reg HR&R. X-ray tech reports when moving her to the table, she gasped, then held her breathe. Patient reports it was due to pain. She denies dyspnea/chest pain. 1800 x-ray shows subcapital hip fx. Discussed with the patient and her (by phone). [address] Bee, agreeable with plan to consult on patient and surgery 08/10 or 08/11, pending INR. [address] Anand, agreeable with plan to admit patient. Consult Dr. Martinez, spoke to him by phone, will see patient in AM. 1900 Morphine 2 mg IV for hip pain. at bedside. Initial ECG Impression Date: Aug 09, 2021 Initial ECG Impression Time: 18:25 Initial ECG Rate: 80 Initial ECG Rhythm: Normal Sinus Initial ECG Intervals NM 204, QRSD 91, QT 378, QTc 436. [place] P 71, QRS 67, T 88 Initial ECG Impression: Normal Initial ECG Comparisson: Unchanged Diagnostic Imaging Diagonstic Imaging: Xray Comments NAME: KEISHA ESPAÑA [facility] REC#: [id number] PT STATUS: REG ER : 1940 PHYSICIAN: FREDDY MARTINEZ ADMIT DATE: 08/09/21/ER Draft Date of Exam:08/09/21 PELVIS WITH LEFT HIP 2-3 VIEWS INDICATION: Pain COMPARISON: CT dated 07/08/2020 TECHNIQUE: 3 radiographs of the pelvis and left hip dated 08/09/2021. FINDINGS: Recent appearing left femoral subcapital neck fracturing is identified with associated varus angulation. The lateral radiograph is severely limited secondary to positioning and overlying structures. Moderate degenerative changes of the pubic symphysis. Sacroiliac joints are intact. Mild scattered degenerative changes. No additional fracture. IMPRESSION: Acute fracturing of the left femoral neck subcapital region result in varus angulation. Scattered degenerative changes. Dictated on workstation # [id number] Dict: 08/09/211826 Trans: 08/09/21 [facility] [id number] Interpreted by: OFELIA DIAZ MD Electronically signed by: Reviewed: Reviewed by Me Plain Films/CT/US/NM/MRI: chest Comments NAME: KEISHA ESPAÑA [facility] REC#: [id number] PT STATUS: REG ER : 1940 PHYSICIAN: FREDDY MARTINEZ ADMIT DATE: 08/09/21/ER Draft Date of Exam:08/09/21 CHEST 1 VIEW, AP/PA ONLY INDICATION: Cough COMPARISON: 06/02/2021 TECHNIQUE: Single radiograph of the chest dated 08/09/2021. FINDINGS: Pacer device is again identified with a battery pack overlying the left chest. The cardiac silhouette is stable. Vascular stent graft is seen overlying the heart. Senescent changes of the lungs are again identified. Slightly increased interstitial prominence is noted when compared to the prior examination with increasing Gayle B lines. No additional focal pulmonary consolidation. No pleural effusion. No pneumothorax. No acute osseous abnormality. IMPRESSION: Increasing prominence of the pulmonary interstitium with presence of Gayle B lines. Findings are favored to relate to minimal interstitial edema or interstitial infiltrate. No significant pleural effusion. Additional stable postsurgical and senescent changes as above. Dictated on workstation # [id number] Dict: 08/09/211820 Trans: 08/09/211825 [facility] [id number] Interpreted by: OFLEIA DIAZ MD Electronically signed by: Reviewed: Reviewed by Me Departure Impression Primary Impression: Fall Qualified Codes: W19.XXXA - Unspecified fall, initial encounter Additional Impressions: Left hip pain Subcapital fracture of left hip Qualified Codes: S72.012A - Unspecified intracapsular fracture of left femur, initial encounter for closed fracture CHF (congestive heart failure) Qualified Codes: I50.9 - Heart failure, unspecified A-fib Qualified Codes: I48.91 - Unspecified atrial fibrillation UTI (urinary tract infection) Qualified Codes: N30.01 - Acute cystitis with hematuria Disposition: ADMITTED INPATIENT Condition: Stable Admissions Decision to Admit Reason: Admit from ER (General) Decision to Admit/Date: Aug 09, 2021 Time/Decision to Admit Time: 18:10 Departure-Patient Inst. Referrals: LOUIS SAINZ MD (PCP/Family) Primary Care Physician Copy Copies To 1: LOUIS SAINZ MD, AMY ARNP Aug 09, 2021 17:02
[2021-08-09 17:06] LABS: ALBUMIN 4.1 GM/DL (3.2-4.5); CHLORIDE 104 MMOL/L (98-107); POTASSIUM 4.2 MMOL/L (3.6-5.0); SODIUM 140 MMOL/L (135-145)
[2021-08-09 17:07] LABS: CALCIUM 9.5 MG/DL (8.5-10.1)
[2021-08-09 17:08] LABS: GLUCOSE 121 MG/DL (70-105); TOTAL PROTEIN 7.6 GM/DL (6.4-8.2)
[2021-08-09 17:09] LABS: CARBON DIOXIDE 24 MMOL/L (21-32)
[2021-08-09 17:10] LABS: BILIRUBIN,TOTAL 0.7 MG/DL (0.1-1.0)
[2021-08-09 17:11] LABS: ALKALINE PHOSPHATASE 127 U/L (40-136)
[2021-08-09 17:12] LABS: CREATININE SERUM 0.69 MG/DL (0.60-1.30); GFR ESTIMATED 81
[2021-08-09 17:13] LABS: BUN/CREATININE RATIO 16
[2021-08-09 17:15] LABS: ALANINE AMINOTRANSFERASE 21 U/L (0-55)
--- NOTE | 2021-08-09 18:27 | Diagnostic Imaging Report ---
INDICATION: Cough COMPARISON: 06/02/2021 TECHNIQUE: Single radiograph of the chest dated 08/09/2021. FINDINGS: Pacer device is again identified with a battery pack overlying the left chest. The cardiac silhouette is stable. Vascular stent graft is seen overlying the heart. Senescent changes of the lungs are again identified. Slightly increased interstitial prominence is noted when compared to the prior examination with increasing Agyle B lines. No additional focal pulmonary consolidation. No pleural effusion. No pneumothorax. No acute osseous abnormality. IMPRESSION: Increasing prominence of the pulmonary interstitium with presence of Gayle B lines. Findings are favored to relate to minimal interstitial edema or interstitial infiltrate. No significant pleural effusion. Additional stable postsurgical and senescent changes as above. Dictated by: Dictated on workstation # [id number]
--- NOTE | 2021-08-09 18:31 | Diagnostic Imaging Report ---
INDICATION: Pain COMPARISON: CT dated 07/08/2020 TECHNIQUE: 3 radiographs of the pelvis and left hip dated 08/09/2021. FINDINGS: Recent appearing left femoral subcapital neck fracturing is identified with associated varus angulation. The lateral radiograph is severely limited secondary to positioning and overlying structures. Moderate degenerative changes of the pubic symphysis. Sacroiliac joints are intact. Mild scattered degenerative changes. No additional fracture. IMPRESSION: Acute fracturing of the left femoral neck subcapital region resulting in varus angulation. Scattered degenerative changes. Dictated by: Dictated on workstation # [id number]
[2021-08-09] MEDS ORDERED: morphine INJ 10 MG/ML 1ML (SYR OR VIAL) IVP STA (19:00)
[2021-08-09 19:01] LABS: BILIRUBIN,URINE NEGATIVE (NEGATIVE); CLARITY,URINE SL CLOUDY; COLOR,URINE YELLOW; GLUCOSE, URINE (UA) NEGATIVE (NEGATIVE); KETONES,URINE NEGATIVE (NEGATIVE); LEUKOCYTE ESTERASE ,URINE TRACE (NEGATIVE); NITRITE,URINE POSITIVE (NEGATIVE); PROTEIN,URINE NEGATIVE (NEGATIVE)
[2021-08-09 19:25] LABS: BACTERIA,URINE LARGE /HPF; SQUAMOUS EPITHELIAL CELL,UR RARE /HPF; WBC,URINE 0-2 /HPF
[2021-08-09 20:46] VITALS: BP 183/80
[2021-08-09] MEDS ORDERED: diphenhydrAMINE 25 MG TAB (BENADRYL) PO PRN (21:30)
[2021-08-09] MEDS ORDERED: cloNIDine 0.1 MG (CATAPRES) TAB PO PRN (21:30)
[2021-08-09] MEDS ORDERED: hydrALAZINE (APESOLINE) 20 MG/ML VIAL IV PRN (21:30)
[2021-08-09] MEDS ORDERED: ALPRAZolam 0.25 MG (XANAX) TAB PO PRN (21:30)
[2021-08-09] MEDS ORDERED: MELATONIN 3 MG TABLET PO PRN (21:30)
[2021-08-09] MEDS ORDERED: ACETAMINOPHEN 500 MG TAB (TYLENOL) PO PRN (21:30)
[2021-08-09] MEDS ORDERED: ONDANSETRON 4 MG/2 ML (SDV) Z0FRAN IVP PRN (21:30)
[2021-08-09] MEDS ORDERED: CALCIUM CARBONATE 500 MG (TUMS) TAB.CHEW PO PRN (21:30)
[2021-08-09 22:01] VITALS: BP 201/99
[2021-08-09] MEDS ORDERED: RT-ALBUTEROL SULF 2.5 MG/3 ML PRE-MIX VIAL INH PRN (22:15)
[2021-08-09 22:56] VITALS: BP 187/80
[2021-08-09] MEDS: NS IV 1000 ML 1,000 ML IV SCH (23:01)
[2021-08-09 23:53] VITALS: BP 167/76
[2021-08-10] MEDS: morphine INJ 4 MG/ML 1 ML (VIAL/SYRINGE) IVP PRN ×4 (01:39→10:52)
[2021-08-10 04:00] VITALS: BP 158/72
[2021-08-10 06:05] LABS: BASOPHILS % (AUTO) 0 % (0-10); EOSINOPHILS # (AUTO) 0.1 10^3/uL (0.0-0.3); EOSINOPHILS % (AUTO) 1 % (0-10); HEMATOCRIT 38 % (35-52); HEMOGLOBIN 12.6 g/dL (11.5-16.0); LYMPHOCYTES # (AUTO) 0.6 10^3/uL (1.0-4.0); LYMPHOCYTES % (AUTO) 4 % (12-44); MEAN CORPUSCULAR HEMOGLOBIN 29 pg (25-34); MEAN CORPUSCULAR HGB CONC 33 g/dL (32-36); MEAN CORPUSCULAR VOLUME 89 fL (80-99); MEAN PLATELET VOLUME 10.2 fL (9.0-12.2); MONOCYTES # (AUTO) 0.8 10^3/uL (0.0-1.0); MONOCYTES % (AUTO) 6 % (0-12); NEUTROPHILS # (AUTO) 12.4 10^3/uL (1.8-7.8); NEUTROPHILS % (AUTO) 89 % (42-75); PLATELET COUNT 204 10^3/uL (130-400)
[2021-08-10 06:12] LABS: INR 1.8 (0.8-1.4); PROTHROMBIN TIME PATIENT 21.7 SEC (12.2-14.7)
[2021-08-10 06:15] LABS: ALBUMIN 3.5 GM/DL (3.2-4.5); POTASSIUM 3.8 MMOL/L (3.6-5.0)
[2021-08-10 06:16] LABS: CALCIUM 8.7 MG/DL (8.5-10.1)
[2021-08-10 06:18] LABS: TOTAL PROTEIN 6.4 GM/DL (6.4-8.2)
[2021-08-10 06:19] LABS: BILIRUBIN,TOTAL 0.7 MG/DL (0.1-1.0)
[2021-08-10 06:21] LABS: CREATININE SERUM 0.62 MG/DL (0.60-1.30)
[2021-08-10 06:43] LABS: LYMPHOCYTES % (MANUAL) 7 %; MONOCYTES % (MANUAL) 3 %; NEUTROPHILS % (MANUAL) 90 %; RBC MORPH NORMAL
[2021-08-10 07:43] VITALS: BP 165/70
[2021-08-10] MEDS: cefTRIAXone 1 GM PRE-MIX 50 ML IV SCH (07:53)
--- NOTE | 2021-08-10 08:10 | Consultation - Ortho ---
Consult - Ortho Subjective Date of Exam 08/10/21 Chief Complaint Left Hip Pain HPI/Events since last exam 81 year old female sustained fall from standing height. Unable to bear weight on left leg. Seen in ER and diagnosed with left femoral neck fracture. I was asked to manage the fracture. Situation complicated by warfarin coagulopathy and cardiac history. Medical, Surgical History see admit Social History see admit Family History see admit Review of Systems see admit Allergies: Coded Allergies: Penicillins (Unverified Allergy, Unknown, 11/17/19) Home Meds Active Scripts Enoxaparin Sodium (Enoxaparin Sodium) 100 Mg/1 Ml Syringe, 100 MG SQ DAILY, #3 SYRINGE 1 Refill Prov:JOSE RAMON PETER MD 10/30/20 Nitroglycerin (Nitroglycerin) 0.4 Mg Tab.subl, 0 MG SL UD PRN for CHEST PAIN (ANGINA), #30 TAB Prov:SIXTO ANAND DO 07/01/20 Reported Medications Docusate Sodium (Stool Softener) 100 Mg Tablet, 100 MG PO DAILY PRN for CONSTIPATION-1ST LINE, TAB 10/26/20 Carvedilol (Carvedilol) 12.5 Mg Tablet, 12.5 MG PO BID, TAB 10/26/20 Warfarin Sodium (Warfarin Sodium) 1 Mg Tablet, 1.5 MG PO ,,ДМИТРИЙ,FRI,SAT, TAB TAKES AT BEDTIME 1.5MG PO ON MON,,, FRI AND SAT 1MG ON MON,Mon06/30/20 Warfarin Sodium (Warfarin Sodium) 1 Mg Tablet, 1 MG PO MON,MON, TAB TAKES AT BEDTIME 1.5MG PO ON MON,,, MON AND SAT 1MG ON MON,Mon06/30/20 Cholecalciferol (Vitamin D3) (Vitamin D3) 50 Mcg Capsule, 50 MCG PO DAILY, CAP 02/24/20 Tolterodine Tartrate (Tolterodine Tartrate ER) 4 Mg Cap.er.24h, 4 MG PO DAILY, CAP 02/24/20 Calcium Carbonate (Calcium Carbonate) 600 Mg Tablet, 600 MG PO Q48H, TAB 11/18/19 Lisinopril (Lisinopril) 20 Mg Tablet, 20 MG PO DAILY, TAB 11/17/19 Diltiazem HCl (Cartia Xt) 180 Mg Cap.er.24h, 180 MG PO DAILY, CAP 11/17/19 Cyanocobalamin (Vitamin B-12) 100 Mcg Tablet, 1000 MCG PO DAILY, TAB 11/17/19 Clopidogrel Bisulfate (Plavix) 75 Mg Tablet, 75 MG PO DAILY, TAB 11/17/19 Atorvastatin Calcium (Lipitor) 40 Mg Tablet, 40 MG PO DAILY, TAB 11/17/19 Acetaminophen (Acetaminophen) 325 Mg Tablet, 650 MG PO Q6H PRN for PAIN-MILD (1- 4), TAB 11/17/19 Objective Exam Left Hip: Skin intact, no ecchymosis, leg held in external rotation, shortened, able to dorsiflex ankle, pulses palpable, sensation grossly intact to light touch Vital Signs Vital Signs Date Time Temp Pulse Resp B/P (MAP) Pulse Ox O2 Delivery O2 Flow Rate FiO2 08/10/21 07:43 36.9 85 18 165/70 (101) 92 Nasal Cannula 3.50 08/10/21 07:00 81 08/10/21 04:00 37.3 89 20 158/72 (100) 95 Nasal Cannula 3.50 08/10/21 00:59 90 08/10/21 00:14 94 08/09/21 23:53 37.4 92 18 167/76 (106) 93 Nasal Cannula 3.50 08/09/21 23:00 93 Nasal Cannula 3.50 08/09/21 23:00 Nasal Cannula 3.00 08/09/21 22:56 187/80 (115) 08/09/21 22:01 36.1 71 95 32 08/09/21 20:46 36.2 82 20 183/80 (114) 95 Nasal Cannula 3.50 08/09/21 19:40 74 24 182/93 93 Nasal Cannula 3.00 08/09/21 16:32 36.1 71 18 201/99 (133) 95 08/09/21 16:32 36.1 71 18 201/99 (133) 95 I & O 08/10/21 07:00 Intake Total 100 ml Output Total 575 ml Balance -475 ml Lab Results Laboratory Tests 08/09/21 16:30: White Blood Count 9.0, Red Blood Count 4.65, Hemoglobin 13.7, Hematocrit 42, Mean Corpuscular Volume 90, Mean Corpuscular Hemoglobin 30, Mean Corpuscular Hemoglobin Concent 33, Red Cell Distribution Width 14.0, Platelet Count 247, Mean Platelet Volume 9.4, Immature Granulocyte % (Auto) 2, Neutrophils (%) (Auto) 75, Lymphocytes (%) (Auto) 12, Monocytes (%) (Auto) 9, Eosinophils (%) (Auto) 2, Basophils (%) (Auto) 0, Neutrophils # (Auto) 6.7, Lymphocytes # (Auto) 1.1, Monocytes # (Auto) 0.8, Eosinophils # (Auto) 0.2, Basophils # (Auto) 0.0, Immature Granulocyte # (Auto) 0.1, Prothrombin Time 23.0H, INR Comment 2.0H, Activated Partial Thromboplast Time 33, Sodium Level 140, Potassium Level 4.2, Chloride Level 104, Carbon Dioxide Level 24, Anion Gap 12, Blood Urea Nitrogen 11, Creatinine 0.69, Estimat Glomerular Filtration Rate 81, BUN/Creatinine Ratio 16, Glucose Level 121H, Calcium Level 9.5, Corrected Calcium 9.4, Total Bilirubin 0.7, Aspartate Amino Transf (AST/SGOT) 32, Alanine Aminotransferase (ALT/SGPT) 21, Alkaline Phosphatase 127, Troponin I < 0.028, Total Protein 7.6, Albumin 4.1 08/09/21 17:20: SARS-CoV-2 RNA (RT-PCR) Not Detected 08/09/21 18:30: Urine Color YELLOW, Urine Clarity SL CLOUDY, Urine pH 6.0, Urine Specific [place] 1.025H, Urine Protein NEGATIVE, Urine Glucose (UA) NEGATIVE, Urine Ketones NEGATIVE, Urine Nitrite POSITIVEH, Urine Bilirubin NEGATIVE, Urine Urobilinogen 0.2, Urine Leukocyte Esterase TRACEH, Urine RBC (Auto) 2+H, Urine RBC 5-10H, Urine WBC 0-2, Urine Squamous Epithelial Cells RARE, Urine Crystals NONE, Urine Bacteria LARGEH, Urine Casts NONE, Urine Mucus NEGATIVE, Urine Culture Indicated YES 08/10/21 05:24: White Blood Count 14.0H, Red Blood Count 4.32, Hemoglobin 12.6, Hematocrit 38, Mean Corpuscular Volume 89, Mean Corpuscular Hemoglobin 29, Mean Corpuscular Hemoglobin Concent 33, Red Cell Distribution Width 14.1, Platelet Count 204, Mean Platelet Volume 10.2, Immature Granulocyte % (Auto) 0, Neutrophils (%) (Auto) 89H, Lymphocytes (%) (Auto) 4L, Monocytes (%) (Auto) 6, Eosinophils (%) (Auto) 1, Basophils (%) (Auto) 0, Neutrophils # (Auto) 12.4H, Lymphocytes # (Auto) 0.6L, Monocytes # (Auto) 0.8, Eosinophils # (Auto) 0.1, Basophils # (Auto) 0.0, Immature Granulocyte # (Auto) 0.1, Prothrombin Time 21.7H, INR Comment 1.8H, Sodium Level 137, Potassium Level 3.8, Chloride Level 105, Carbon Dioxide Level 21, Anion Gap 11, Blood Urea Nitrogen 12, Creatinine 0.62, Estimat Glomerular Filtration Rate 92, BUN/Creatinine Ratio 19, Glucose Level 129H, Calcium Level 8.7, Corrected Calcium 9.1, Total Bilirubin 0.7, Aspartate Amino Transf (AST/SGOT) 29, Alanine Aminotransferase (ALT/SGPT) 18, Alkaline Phosphatase 102, Total Protein 6.4, Albumin 3.5, Neutrophils % (Manual) 90, Lymphocytes % (Manual) 7, Monocytes % (Manual) 3, Blood Morphology Comment NORMAL Microbiology 08/09/21 Urine Culture - Preliminary, Resulted Probable Klebsiella/Enterobact Imaging Pelvis and 2 views of the left hip dated 08/09/21 were reviewed from PACS and demonstrated a displaced left femoral neck fracture Assessment and Plan Assessment Displaced Left Femoral Neck Fracture Problem List Displaced Left Femoral Neck Fracture Plan I have recommended proceeding with prosthetic replacement of her left femoral neck fracture. Nature of the procedure and the postoperative course were discussed. Risks and benefits were discussed. Her current questions were answered; consent to be obtained. Will tentatively schedule for tomorrow to allow for correction of her warfarin coagulopathy and cardiology consultation. Goal INR for surgery would be less than 1.5. Final Diagonsis Displaced Left Femoral Neck Fracture Level of the visit: Level 3 RITA UP MD Aug 10, 2021 08:10
[2021-08-10] MEDS ORDERED: CLINDAMYCIN 900 MG/50 ML IVPB 50 ML IV ONE (08:15)
--- NOTE | 2021-08-10 08:23 | Consultation-Cardiology ---
HPI-Cardiology Cardiology Consultation Date of Consultation 08/10/21 Date of Admission Time Seen by Provider: 08:35 Indication: CAD, PAF HPI Patient is an 81 y/o female with hx of CAD with most recent stenting in Oct 2020, PAF, maintained on Coumadin, HTN. Presented to ER for nonsycopal fall after tripping over her dog at home, sustaining left hip fracture. Planning for surgery with Dr. Bee. She is denying any chest pain or dyspnea. Denies any dizziness or lightheadedness. Denies syncope. C/o left hip pain and fatigue. Home Medications & Allergies Allergies: Coded Allergies: Penicillins (Unverified Allergy, Unknown, 11/17/19) Home Medication List Reviewed: Yes THT-Exidmp-Ksswzt Hx Patient Social History Marital Status: Employed/Student: retired Smoking Status: Never a Smoker 2nd Hand Smoke Exposure: No Recent Hopitalizations: No Have you traveled recently?: No Alcohol Use?: No Immunizations Up To Date Tetanus Booster (TDap): Unknown Date of Pneumonia Vaccine: Jul 08, 2019 Past Medical History CAD, PAF, SSS, HTN Family Medical History Significant Family History: No Pertinent Family Hx Family Medical Hx Noncontributory to her current condition Review of Systems-General Review of Systems Constitutional: no symptoms reported, see HPI EENTM: see HPI; No blurred vision, No double vision Respiratory: see HPI; No cough, No dyspnea on exertion Cardiovascular: see HPI; No chest pain; Hx of Intervention; No syncope; vascular heart diseas Gastrointestinal: No abdominal pain Genitourinary: No dysuria, No hematuria Musculoskeletal: see HPI, joint pain (left hip), muscle pain (left leg), other (slight shortening, external rotation left leg) All Other Systems Reviewed Negative Unless Noted: Yes Reviewed Test Results Reviewed Test Results Lab Laboratory Tests 08/09/21 16:30: White Blood Count 9.0, Red Blood Count 4.65, Hemoglobin 13.7, Hematocrit 42, Mean Corpuscular Volume 90, Mean Corpuscular Hemoglobin 30, Mean Corpuscular Hemoglobin Concent 33, Red Cell Distribution Width 14.0, Platelet Count 247, Mean Platelet Volume 9.4, Immature Granulocyte % (Auto) 2, Neutrophils (%) (Auto) 75, Lymphocytes (%) (Auto) 12, Monocytes (%) (Auto) 9, Eosinophils (%) (Auto) 2, Basophils (%) (Auto) 0, Neutrophils # (Auto) 6.7, Lymphocytes # (Auto) 1.1, Monocytes # (Auto) 0.8, Eosinophils # (Auto) 0.2, Basophils # (Auto) 0.0, Immature Granulocyte # (Auto) 0.1, Prothrombin Time 23.0H, INR Comment 2.0H, Activated Partial Thromboplast Time 33, Sodium Level 140, Potassium Level 4.2, Chloride Level 104, Carbon Dioxide Level 24, Anion Gap 12, Blood Urea Nitrogen 11, Creatinine 0.69, Estimat Glomerular Filtration Rate 81, BUN/Creatinine Ratio 16, Glucose Level 121H, Calcium Level 9.5, Corrected Calcium 9.4, Total Bilirubin 0.7, Aspartate Amino Transf (AST/SGOT) 32, Alanine Aminotransferase (ALT/SGPT) 21, Alkaline Phosphatase 127, Troponin I < 0.028, Total Protein 7.6, Albumin 4.1 08/09/21 17:20: SARS-CoV-2 RNA (RT-PCR) Not Detected 08/09/21 18:30: Urine Color YELLOW, Urine Clarity SL CLOUDY, Urine pH 6.0, Urine Specific [place] 1.025H, Urine Protein NEGATIVE, Urine Glucose (UA) NEGATIVE, Urine Ketones NEGATIVE, Urine Nitrite POSITIVEH, Urine Bilirubin NEGATIVE, Urine Urobilinogen 0.2, Urine Leukocyte Esterase TRACEH, Urine RBC (Auto) 2+H, Urine RBC 5-10H, Urine WBC 0-2, Urine Squamous Epithelial Cells RARE, Urine Crystals NONE, Urine Bacteria LARGEH, Urine Casts NONE, Urine Mucus NEGATIVE, Urine Culture Indicated YES 08/10/21 05:24: White Blood Count 14.0H, Red Blood Count 4.32, Hemoglobin 12.6, Hematocrit 38, Mean Corpuscular Volume 89, Mean Corpuscular Hemoglobin 29, Mean Corpuscular Hemoglobin Concent 33, Red Cell Distribution Width 14.1, Platelet Count 204, Mean Platelet Volume 10.2, Immature Granulocyte % (Auto) 0, Neutrophils (%) (Auto) 89H, Lymphocytes (%) (Auto) 4L, Monocytes (%) (Auto) 6, Eosinophils (%) (Auto) 1, Basophils (%) (Auto) 0, Neutrophils # (Auto) 12.4H, Lymphocytes # (Auto) 0.6L, Monocytes # (Auto) 0.8, Eosinophils # (Auto) 0.1, Basophils # (Auto) 0.0, Immature Granulocyte # (Auto) 0.1, Prothrombin Time 21.7H, INR Comment 1.8H, Sodium Level 137, Potassium Level 3.8, Chloride Level 105, Carbon Dioxide Level 21, Anion Gap 11, Blood Urea Nitrogen 12, Creatinine 0.62, Estimat Glomerular Filtration Rate 92, BUN/Creatinine Ratio 19, Glucose Level 129H, Calcium Level 8.7, Corrected Calcium 9.1, Total Bilirubin 0.7, Aspartate Amino Transf (AST/SGOT) 29, Alanine Aminotransferase (ALT/SGPT) 18, Alkaline Phosphatase 102, Total Protein 6.4, Albumin 3.5, Neutrophils % (Manual) 90, Lymphocytes % (Manual) 7, Monocytes % (Manual) 3, Blood Morphology Comment NORMAL Microbiology 08/09/21 Urine Culture - Preliminary, Resulted Probable Klebsiella/Enterobact ECG Impression ECG Initial ECG Rhythm: Normal Sinus Physical Exam Physical Exam Vital Signs Vital Signs - First Documented 08/09/21 08/09/21 19:40 22:01 O2 Delivery Nasal Cannula O2 Flow Rate 3.00 FiO2 32 Capillary Refill : Less Than 3 Seconds Height, Weight, BMI Height: '" Weight: lbs. oz. kg; 23.14 BMI Method: General Appearance: No Apparent Distress, WD/WN Neck: Non Tender, Supple; No Carotid Bruit Respiratory: Chest Non Tender, Lungs Clear Cardiovascular: Regular Rate, Rhythm, No Edema, No Gallop Gastrointestinal: Non Tender, Soft Back: No CVA Tenderness Extremity: No Pedal Edema A/P-Cardiology Admission Diagnosis Left hip fracture CAD PAF HTN Assessment/Plan Left hip fracture secondary to nonsyncopal fall, reports she tripped over her do g at home. Planning for surgery with Dr. Bee once INR is under 1.5. Coronary artery disease, history of multiple interventions. LHC done Jun 28, 2020 revealing total occlusion of the circumflex artery with successful balloon angioplasty and 50 percent residual stenosis, failed attempt to place stent d/t calcification. Severe stenosis in the stent in the LAD, underwent balloon an gioplasty with mild to moderate residual stenosis, known to have Synergy 3.5x28 and 3.0x16mm, RCA has multiple stents Synergy 4.0 x38 and 3.5 x 38 that were patent with sm vessel dz distally. Patient had NSTEMI and underwent LHC on 10/29/20 with stenting to the circumflex artery using [place] 2.5x15mm expanded to 2.6mm with excellent results. Maintained on Plavix and Coumadin, both currently on hold at this time CHF, chronic compensated LV systolic dysfunction, ischemic cardiomyopathy, EF 35-40%. Restarted on JAGDEEP-I and beta blockers during hospitalization earlier this month. Continue to monitor. Paroxysmal atrial fibrillation,EKG showing sinus rhythm, maintained on Coumadin, continue to hold in anticipation for surgery. s/p Medtronic dual chamber PPM [place] [address] Pierce at [facility]. Most recent interrogation done in our office Carotid artery stenosis, hx of right carotid stenting, Hx CVA unknown date Poor memory GERD/PUD Preoperative cardiovascular clearance- overall, patient is considered intermediate risk of perioperative cardiovascular complications. Risks versus benefits will be deferred to surgeon. Will continue to hold Coumadin and Plavix at this time. Thank you for allowing us to participate in the management of Ms. Nolasco. This is Susan Kahn PA-C, as a scribe for Dr. Martinez. Patient was seen and evaluated with Susan, I performed examination and i nterview the patient and agree with the current scribed note Patient presented with hip fracture, probably requiring hip surgery. Had coronary artery disease as described above, has been maintained on Coumadin and Plavix which is held at this point. Has paroxysmal atrial fibrillation, EKG showed sinus rhythm. Overall patient is considered at intermediate risk for perioperative card iovascular complications, decision regarding the surgery, risk versus benefit is deferred to the surgeon SUSAN LOVE Aug 10, 2021 08:23 MACARIO MARTINEZ MD Aug 10, 2021 09:31
[2021-08-10] MEDS ORDERED: VITAMIN K 1 MG/ML ORAL SOLN 1 ML SYRINGE PO NR (11:00)
[2021-08-10 11:40] VITALS: BP 172/75
[2021-08-10] MEDS: HYDROcodone/APAP 5 MG/325 MG (LORTAB) TAB PO PRN ×2 (12:25→20:41)
--- NOTE | 2021-08-10 13:09 | History & Physical-Hospitalist ---
BRENDA MENDOZA 08/10/21 1309: History of Present Illness HPI/Chief Complaint CC: Left Femur Fx HPI: Ms. Nolasco is an 81 y/o female with a PMHx of atrial fibrillation, CAD, CVA, pacemaker placement, and coronary stenting. She presented to us after tripping over her dog and falling from standing height, fracturing her left femur. She says this occurred yesterday at breakfast and her pain has been a constant, sharp pain since. She says tylenol helps with the pain and movement with make it worse. She denies any associated numbness or tingling to her left lower extremity. She says the pain does not radiate and is localized over her left hip. She says the pain is constant and does not vary and she rates it as an 8/10. She also reports that 1 week ago she fell in her dining room and 1 month ago she hurt her leg trying to sit down in her recliner. Source: patient, old records Exam Limitations: clinical condition (Patient in pain and had trouble providing history) Date Seen 08/10/21 Time Seen by a Provider: 08:40 Attending Physician Tamara Anand DO PCP Greg Vargas MD Referring Physician Date of Admission Aug 09, 2021 at 18:53 Home Medications & Allergies Home Medications Reviewed patient Home Medication Reconciliation performed by pharmacy medication reconciliations land survey technician and/or nursing. Patients Allergies have been reviewed. Allergies Allergies Coded Allergies Penicillins (Unverified Allergy, Unknown, 11/17/19) Past Gkwdtsh-Fmuycd-Pivqop Hx Patient Social History Marrital Status: Employed/Student: retired Tobacco Use?: No Smoking Status: Never a Smoker Smokeless Tobacco Frequency: Never a User Substance use?: No Alcohol Use?: No Pt feels they are or have been: No Immunizations Up To Date First/Initial COVID19 Vaccinat: 2020 Second COVID19 Vaccination Rishabh: 2020 Tetanus Booster (TDap): Less Than 5 Years PED Vaccines UTD: Yes Date of Pneumonia Vaccine: Jul 08, 2019 Seasonal Allergies Seasonal Allergies: No Current Status Advance Directives: No Communicates: Verbally Primary Language: Palestinian Preferred Spoken Language: Palestinian Is interpretation needed?: No Implanted or Applied Medical D: Pacemaker, Stents Past Medical History Surgeries: Adenoidectomy, Cardiac, Coronary Stent, Pacemaker, Vascular Surgery Pneumonia, Sleep Apnea Atrial Fibrillation, Cardiomyopathy, Coronary Artery Disease, Heart Attack, High Cholesterol, Hypertension, Peripheral Vascular Stroke 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 PLUS ANGIOPLASTIES. -CARDIAC CATH 03/03/20-BY DR. LEAHY CONCLUSIONS: Successful balloon angioplasty of 99% proximal stenosis of the second obtuse marginal with reduction of stenosis to approximately 50% and improvement of flow from CODY 2 to CODY 3. -CARDIAC CATH 06/29/[address] LEAHY- CONCLUSIONS: 1. Coronary artery disease as detailed above. The left circumflex artery had a near total occlusion that was reduced to less than 50% with balloon angioplasty. The left anterior descending artery is known to have Synergy 3.5 x 28 and 3.0 x 16 mm stents that were exhibiting 90% stenosis. This was reduced to less than 50% with balloon angioplasty. The right coronary artery is known to have Synergy 4.0 x 38 and 3.5 x 38 stents that are patent. All vessels have diffuse moderate disease. 2. Ischemic cardiomyopathy with apical akinesis to dyskinesis and left ventricular ejection fraction approximately 40%. 3. Elevated left ventricular end-diastolic pressure. -RIGHT CAROTID STENT X 1 -PACEMAKER 2017 ADDITIONAL PMH: -MULTIPLE NSTEMI'S -ADMITTED 06/28/20-07/01/20 FOR NSTEMI -ADMITTED 07/13/20- FOR SEPSIS AND PNEUMONIA Review of Systems Constitutional: No chills, No fever Respiratory: cough; No short of breath Cardiovascular: No chest pain, No palpitations Gastrointestinal: No abdominal pain, No constipation, No diarrhea, No nausea, No vomiting Musculoskeletal: joint pain, muscle pain Psychiatric/Neurological: Denies Headache, Denies Numbness, Denies Tingling Physical Exam Physical Exam Vital Signs Vital Signs - First Documented 08/09/21 08/09/21 19:40 22:01 O2 Delivery Nasal Cannula O2 Flow Rate 3.00 FiO2 32 Capillary Refill : Less Than 3 Seconds Height, Weight, BMI Height: '" Weight: lbs. oz. kg; 23.14 BMI Method: General Appearance: Anxious (Patient stated "I don't want to here"), Severe Distress (Patient in a large amount of pain causing issues with conversing) HEENT: PERRL/EOMI, Moist Mucous Membranes Neck: Normal Inspection; No Lymphadenopathy (L), No Lymphadenopathy (R) Respiratory: Chest Non Tender, No Accessory Muscle Use, No Respiratory Distress, Wheezing Cardiovascular: Regular Rate, Rhythm, No Murmur, Normal Peripheral Pulses Gastrointestinal: Normal Bowel Sounds, Non Tender, Soft Extremity: Normal Capillary Refill (Upper extremity), Other (Pain in Left hip) Neurologic/Psychiatric: Alert, community relations director II-XII Norm as Tested, Disoriented (Patient slightly disoriented d/t pain) Skin: Normal Color, Warm/Dry Lymphatic: No Adenopathy (Head and neck) Results Results/Procedures Labs Laboratory Tests 08/09/21 16:30 08/10/21 05:24 Patient resulted labs reviewed. Assessment/Plan Assessment and Plan Assessment Left femur fx - Consult Dr. Bee h/o CAD h/o AFib h/o coronary stenting - Takes Plavix and Warfarin Plan Hold Plavix and Warfarin until surgery tomorrow Make NPO at midnight, normal diet today Give vitamin K to help decrease INR to < 1.5 to be a good surgical candidate Pain control as needed TAMARA ANAND DO 08/11/21 0617: History of Present Illness HPI/Chief Complaint CC: Left Hip Fracture HPI: This is an 81yoWF clinic pt of [facility] Dr. Vargas who has a hx of AF and COPD who presents to the ER after a fall at home sustaining a left hip fracture. Dr. Bee will perform surgery tomorrow. Coumadin maintained and held, INR 1.8 and given 2.5 mg of Vitamin K to reverse that to 1.[address] Bee requires. Source: patient Exam Limitations: clinical condition (Patient in pain and had trouble providing history) Past Coeuybz-Baerio-Ylempd Hx Patient Social History Marrital Status: Employed/Student: retired Past Medical History COPD Atrial Fibrillation, High Cholesterol, Hypertension Review of Systems ROS-Unable to Obtain: Severe pain from hip fracture Constitutional: see HPI Physical Exam Physical Exam General Appearance: Anxious (Patient stated "I don't want to here"), Moderate Distress HEENT: PERRL/EOMI Neck: Normal Inspection Respiratory: No Accessory Muscle Use, No Respiratory Distress, Decreased Breath Sounds Cardiovascular: Regular Rate, Rhythm, Irregularly Irregular Neurologic/Psychiatric: Alert, Disoriented (Patient slightly disoriented d/t pain) Assessment/Plan Admission Diagnosis Assessment: Acute left hip fracture suffered from fall at home over dog Atrial fibrillation on Coumadin COPD h/o NSTEMI h/o Pneumonia 06/2020 CHF AF Anxiety Severe debility Advanced age Plan: Reverse INR Surgery tomorrow High risk for complications Admission Status: Inpatient Order (span 2 midnights) Reason for Inpatient Admission: Hip fracture Supervisory-Addendum Brief Verification & Attestation Participated in pt care: history, MDM, physical Personally performed: exam, history, MDM, supervision of care Care discussed with: Medical Student Procedures: n/a Results interpretation: Verified all documentation Verification and Attestation of Medical Student E/M Service A medical student performed and documented this service in my presence. I reviewed and verified all information documented by the medical student and made modifications to such information, when appropriate. I personally performed the physical exam and medical decision making. Tamara Anand, Aug 11, 2021,06:17 BRENDA MENDOZA Aug 10, 2021 13:09 TAMARA ANAND DO Aug 11, 2021 06:17
[2021-08-10] MEDS ORDERED: GABA-486 PO (14:09)
[2021-08-10] MEDS ORDERED: FEXO-45 PO (14:09)
[2021-08-10] MEDS ORDERED: SERT-414 PO (14:09)
[2021-08-10] MEDS ORDERED: ATOR40TA70 PO (14:09)
[2021-08-10] MEDS ORDERED: SERT-413 PO (14:09)
[2021-08-10] MEDS ORDERED: FURO20TA4 PO (14:09)
[2021-08-10] MEDS ORDERED: LISI10TA25 PO (14:09)
[2021-08-10] MEDS ORDERED: POTA-160 PO (14:09)
[2021-08-10] MEDS ORDERED: CALC-140 PO (14:09)
[2021-08-10] MEDS ORDERED: DILT180C85 PO (14:09)
[2021-08-10] MEDS ORDERED: IRON150C3 PO (14:09)
[2021-08-10] MEDS ORDERED: CLOP75TA28 PO (14:09)
[2021-08-10] MEDS ORDERED: CYAN500T8 PO (14:09)
[2021-08-10 15:30] VITALS: BP 176/79
[2021-08-10] MEDS: NS IV 1000 ML 1,000 ML IV SCH (18:16)
[2021-08-10 20:10] VITALS: BP 186/82
[2021-08-10] MEDS: polyethylene glycoL POWDER 17 GM (MIRALAX) PACK PO SCH (20:41)
[2021-08-11] VITALS (8 sets, daily range): BP systolic 96–171; BP diastolic 70–83
[2021-08-11] MEDS ORDERED: meTOprolol 5 MG/5 ML (LOPRESSOR) VIAL ONE (03:39)
[2021-08-11] MEDS ORDERED: meTOprolol 5 MG/5 ML (LOPRESSOR) VIAL IV ONE (03:45)
[2021-08-11 04:08] LABS: ABG BASE EXCESS -1.6 MMOL/L (-2.5-2.5); ABG OXYGEN SATURATION 87 % (94-100); ABG PCO2 32 MMHG (35-45); ABG PH 7.45 (7.37-7.43); ABG PO2 53 MMHG (79-93); ABG TCO2 23.1 MMOL/L (21.0-31.0)
[2021-08-11 04:10] LABS: ALLENS TEST YES-POS; INSPIRED O2 10L; VENTILATOR NO
[2021-08-11 04:45] LABS: BASOPHILS % (AUTO) 0 % (0-10); EOSINOPHILS # (AUTO) 0.1 10^3/uL (0.0-0.3); EOSINOPHILS % (AUTO) 1 % (0-10); LYMPHOCYTES # (AUTO) 0.7 10^3/uL (1.0-4.0); LYMPHOCYTES % (AUTO) 5 % (12-44); MEAN CORPUSCULAR HGB CONC 33 g/dL (32-36); MEAN CORPUSCULAR VOLUME 89 fL (80-99); MEAN PLATELET VOLUME 9.6 fL (9.0-12.2); MONOCYTES # (AUTO) 0.6 10^3/uL (0.0-1.0); MONOCYTES % (AUTO) 5 % (0-12); NEUTROPHILS # (AUTO) 11.6 10^3/uL (1.8-7.8); NEUTROPHILS % (AUTO) 88 % (42-75)
[2021-08-11 04:47] LABS: PLATELET COUNT 185 10^3/uL (130-400); WHITE BLOOD COUNT 14.5 10^3/uL (4.3-11.0)
[2021-08-11 04:48] LABS: HEMATOCRIT 41 % (35-52); HEMOGLOBIN 13.5 g/dL (11.5-16.0); MEAN CORPUSCULAR HEMOGLOBIN 29 pg (25-34)
[2021-08-11 04:54] LABS: ALBUMIN 3.7 GM/DL (3.2-4.5); POTASSIUM 4.2 MMOL/L (3.6-5.0)
[2021-08-11 04:55] LABS: CALCIUM 9.6 MG/DL (8.5-10.1)
[2021-08-11 04:56] LABS: TOTAL PROTEIN 7.1 GM/DL (6.4-8.2)
[2021-08-11 04:58] LABS: BILIRUBIN,TOTAL 0.9 MG/DL (0.1-1.0)
--- NOTE | 2021-08-11 04:58 | Diagnostic Imaging Report ---
Indication: Shortness of breath Portable chest 4:40 AM There is a dual-chamber pacemaker. Heart size and pulmonary vascularity are normal. Lungs are clear. There are no effusions or pneumothoraces. IMPRESSION: No acute abnormalities in the chest Dictated by: Dictated on workstation # [id number]
[2021-08-11 04:59] LABS: PHOSPHORUS 2.7 MG/DL (2.3-4.7)
--- NOTE | 2021-08-11 04:59 | Tele-ICU Consult ---
History of Present Illness History of Present Illness Date Seen by Provider: Aug 11, 2021 Time Seen by Provider: 04:58 Reason for Visit: CAD, PAF History of Present Illness 81 yo F fell , Fx hip to have surgery today but INR to high, given Vit K, INR was 2.0, now 1.8 Long Hx of CAD with stents, ischemic CMP with LVEF 35-40%, also carotid stenosis, s/p PCTA Dropped SpO2 now on BiPAP 14/10 and FiO2 100% CXR shows pacer for SSS but lungs look ok Allergies and Home Medications Allergies Coded Allergies: Penicillins (Unverified Allergy, Unknown, 11/17/19) Home Medications Atorvastatin Calcium 40 Mg Tablet, 40 MG PO HS, (Reported) Calcium Carbonate/Vitamin D3 1 Each Tablet, 1 EACH PO DAILY, (Reported) Carvedilol 12.5 Mg Tablet, 12.5 MG PO BID WITH MEALS, (Reported) Cholecalciferol (Vitamin D3) 50 Mcg Capsule, 50 MCG PO DAILY, (Reported) Clopidogrel Bisulfate 75 Mg Tablet, 75 MG PO DAILY, (Reported) Cyanocobalamin (Vitamin B-12) 500 Mcg Tablet, 500 MCG PO DAILY, (Reported) Diltiazem HCl 180 Mg Cap.er.24h, 180 MG PO DAILY, (Reported) Fexofenadine HCl 60 Mg Tablet, 60 MG PO DAILY PRN for ALLERGY SYMPTOMS, (Reported) Furosemide 20 Mg Tablet, 20 MG PO DAILY PRN for FLUID RETENTION, (Reported) Gabapentin 100 Mg Capsule, 100 MG PO BID, (Reported) Iron Polysaccharide Complex 150 Mg Capsule, 150 MG PO BID, (Reported) Lisinopril 10 Mg Tablet, 10 MG PO DAILY, (Reported) Potassium Chloride 10 Meq Tablet.er, 10 MEQ PO BID, (Reported) Sertraline HCl 50 Mg Tablet, 50 MG PO DAILY, (Reported) TAKES 50MG +100MG TO EQUAL 150MG Sertraline HCl 100 Mg Tablet, 100 MG PO DAILY, (Reported) TAKES 50MG +100MG TO EQUAL 150MG Warfarin Sodium 1 Mg Tablet, 1.5 MG PO SUN,WED@HS, (Reported) TAKES 1 & (1MG) TAB Warfarin Sodium 1 Mg Tablet, 1 MG PO MO,TU,ДМИТРИЙ,FRI,SAT@HS, (Reported) Past Medical/Social/Family Hx Patient Social History Marrital Status: Employed/Student: retired Tobacco Use?: No Smoking Status: Never a Smoker Smokeless Tobacco Frequency: Never a User Substance use?: No Alcohol Use?: No Pt stated abuse/neglect: No Immunizations Up To Date Influenza Vaccine Up-to-Date: No; Not Current First/Initial COVID19 Vaccinat: 2020 Second COVID19 Vaccination Rishabh: 2020 Tetanus Booster (TDap): Less Than 5 Years TB Skin Test: None Date of Pneumonia Vaccine: Jul 08, 2019 Current Status Advance Directives: No Communicates: Verbally Primary Language: Mexican Preferred Spoken Language: Mexican Is interpretation needed?: No Implanted or Applied Medical D: Pacemaker, Stents Family Medical History Family Hx: PSH: -CARDIAC CATHS--STENTS X 4. PLUS ANGIOPLASTIES. -CARDIAC CATH 03/03/20-BY DR. LEAHY CONCLUSIONS: Successful balloon angioplasty of 99% proximal stenosis of the second obtuse marginal with reduction of stenosis to approximately 50% and improvement of flow from CODY 2 to CODY 3. -CARDIAC CATH 06/29/[address] LEAHY- CONCLUSIONS: 1. Coronary artery disease as detailed above. The left circumflex artery had a near total occlusion that was reduced to less than 50% with balloon angioplasty. The left anterior descending artery is known to have Synergy 3.5 x 28 and 3.0 x 16 mm stents that were exhibiting 90% stenosis. This was reduced to less than 50% with balloon angioplasty. The right coronary artery is known to have Synergy 4.0 x 38 and 3.5 x 38 stents that are patent. All vessels have diffuse moderate disease. 2. Ischemic cardiomyopathy with apical akinesis to dyskinesis and left ventricular ejection fraction approximately 40%. 3. Elevated left ventricular end-diastolic pressure. -RIGHT CAROTID STENT X 1 -PACEMAKER 2017 ADDITIONAL PMH: -MULTIPLE NSTEMI'S -ADMITTED 06/28/20-07/01/20 FOR NSTEMI -ADMITTED 07/13/20- FOR SEPSIS AND PNEUMONIA Review of Systems Constitutional: see HPI EENTM: see HPI Respiratory: see HPI Cardiovascular: see HPI Gastrointestinal: see HPI Genitourinary: see HPI Musculoskeletal: see HPI Skin: see HPI Psychiatric/Neurological: See HPI Sepsis Event Evaluation Height, Weight, BMI Height: '" Weight: lbs. oz. kg; 23.14 BMI Method: Exam Exam Patient acknowledged, consented, and participated in this virtual visit which was conducted using real time audio/video Vital Signs Date Time Temp Pulse Resp B/P (MAP) Pulse Ox O2 Delivery O2 Flow Rate FiO2 08/11/21 04:46 36.0 123 91 100 08/11/21 04:24 36.0 NIV Bilevel 100.00 08/11/21 04:10 116 42 91 100.00 08/11/21 02:25 111 08/11/21 01:00 119 08/11/21 00:27 37.1 110 18 171/83 (112) 92 Nasal Cannula 2.00 08/10/21 20:10 37.6 100 20 186/82 (116) 92 Nasal Cannula 2.00 08/10/21 20:00 Nasal Cannula 2.00 08/10/21 19:00 98 08/10/21 15:30 37.0 89 20 176/79 (111) 91 Nasal Cannula 2.00 08/10/21 12:16 89 08/10/21 11:40 36.9 93 16 172/75 (107) 91 Nasal Cannula 3.50 08/10/21 08:08 Nasal Cannula 2.00 08/10/21 08:05 95 Nasal Cannula 3.50 08/10/21 08:00 Nasal Cannula 2.00 08/10/21 07:43 36.9 85 18 165/70 (101) 92 Nasal Cannula 3.50 08/10/21 07:00 81 I & O 08/11/21 07:00 Intake Total 740 ml Output Total 450 ml Balance 290 ml Height & Weight Height: '" Weight: lbs. oz. kg; 23.14 BMI Method: General Appearance: No Apparent Distress, Anxious (Patient stated "I don't want to here"), Severe Distress (Patient in a large amount of pain causing issues with conversing) HEENT: PERRL/EOMI, Moist Mucous Membranes Neck: Normal Inspection; No Lymphadenopathy (L), No Lymphadenopathy (R) Respiratory: Chest Non Tender, No Accessory Muscle Use, No Respiratory Distress, Rhonci, Wheezing Cardiovascular: Regular Rate, Rhythm, No Murmur, Normal Peripheral Pulses, Irregularly Irregular Capillary Refill: Less Than 3 Seconds Gastrointestinal: normal bowel sounds, non tender, soft; No rebound, No tenderness Extremity: Normal Capillary Refill (Upper extremity), Other (Pain in Left hip) Neurologic/Psychiatric: Alert, dredge pumper II-XII Norm as Tested, Disoriented (Patient slightly disoriented d/t pain) Skin: Normal Color, Warm/Dry Lymphatic: No Adenopathy (Head and neck) Results Lab Laboratory Tests 08/09/21 16:30 08/10/21 05:24 08/11/21 04:34 Assessment/Plan Assessment/Plan a fib on cardizem, metoprolol coumadin on hold in anticipation of repair of Fx hip will continue on BiPAP, no leg swelling, has been anticoagulated until today JONATHAN JONES MD Aug 11, 2021 04:59
[2021-08-11 05:00] LABS: CREATININE SERUM 0.74 MG/DL (0.60-1.30)
[2021-08-11] MEDS ORDERED: RT-ALBUTEROL SULF 2.5 MG/3 ML PRE-MIX VIAL INH PRN (05:00)
[2021-08-11 05:03] LABS: INR 1.7 (0.8-1.4); MAGNESIUM 1.8 MG/DL (1.6-2.4); PROTHROMBIN TIME PATIENT 20.1 SEC (12.2-14.7)
[2021-08-11] MEDS: RT-ALBUTEROL SULF 2.5 MG/3 ML PRE-MIX VIAL INH SCH ×5 (05:15→22:39)
--- NOTE | 2021-08-11 07:38 | Progress Note - Ortho ---
Progress Note Subjective Date of Exam 08/11/21 Chief Complaint Left Hip Pain HPI/Events since last exam Events noted. Currently on BiPap in ICU. Review of Systems not obtained Allergies: Coded Allergies: Penicillins (Unverified Allergy, Unknown, 11/17/19) Home Meds Reported Medications Furosemide (Furosemide) 20 Mg Tablet, 20 MG PO DAILY PRN for FLUID RETENTION, TAB 08/10/21 Clopidogrel Bisulfate (Clopidogrel) 75 Mg Tablet, 75 MG PO DAILY, TAB 08/10/21 Iron Polysaccharide Complex (Ferrex 150) 150 Mg Capsule, 150 MG PO BID, CAP 08/10/21 Lisinopril (Lisinopril) 10 Mg Tablet, 10 MG PO DAILY, TAB 08/10/21 Diltiazem HCl (Diltiazem 24Hr ER) 180 Mg Cap.er.24h, 180 MG PO DAILY, TAB 08/10/21 Potassium Chloride (Klor-Con 10) 10 Meq Tablet.er, 10 MEQ PO BID, TAB 08/10/21 Fexofenadine HCl (Fexofenadine HCl) 60 Mg Tablet, 60 MG PO DAILY PRN for ALLERGY SYMPTOMS, TAB 08/10/21 Atorvastatin Calcium (Atorvastatin Calcium) 40 Mg Tablet, 40 MG PO HS, TAB 08/10/21 Gabapentin (Gabapentin) 100 Mg Capsule, 100 MG PO BID, CAP 08/10/21 Sertraline HCl (Sertraline HCl) 100 Mg Tablet, 100 MG PO DAILY, TAB TAKES 50MG +100MG TO EQUAL 150MG 08/10/21 Sertraline HCl (Sertraline HCl) 50 Mg Tablet, 50 MG PO DAILY, TAB TAKES 50MG +100MG TO EQUAL 150MG 08/10/21 Calcium Carbonate/Vitamin D3 (Calcium + Vitamin D Tablet) 1 Each Tablet, 1 EACH PO DAILY, TAB 08/10/21 Cyanocobalamin (Vitamin B-12) (Vitamin B-12) 500 Mcg Tablet, 500 MCG PO DAILY, TAB 08/10/21 Carvedilol (Carvedilol) 12.5 Mg Tablet, 12.5 MG PO BID WITH MEALS, TAB 10/26/20 Warfarin Sodium (Warfarin Sodium) 1 Mg Tablet, 1 MG PO MO,TU,ДМИТРИЙ,FRI,SAT@HS, TAB 06/30/20 Warfarin Sodium (Warfarin Sodium) 1 Mg Tablet, 1.5 MG PO SUN,WED@HS, TAB TAKES 1 & (1MG) TAB 06/30/20 Cholecalciferol (Vitamin D3) (Vitamin D3) 50 Mcg Capsule, 50 MCG PO DAILY, CAP 02/24/20 Discontinued Reported Medications Docusate Sodium (Stool Softener) 100 Mg Tablet, 100 MG PO DAILY PRN for CONSTIPATION-1ST LINE, TAB 10/26/20 Tolterodine Tartrate (Tolterodine Tartrate ER) 4 Mg Cap.er.24h, 4 MG PO DAILY, CAP 02/24/20 Calcium Carbonate (Calcium Carbonate) 600 Mg Tablet, 600 MG PO Q48H, TAB 11/18/19 Lisinopril (Lisinopril) 20 Mg Tablet, 20 MG PO DAILY, TAB 11/17/19 Diltiazem HCl (Cartia Xt) 180 Mg Cap.er.24h, 180 MG PO DAILY, CAP 11/17/19 Cyanocobalamin (Vitamin B-12) 100 Mcg Tablet, 1000 MCG PO DAILY, TAB 11/17/19 Clopidogrel Bisulfate (Plavix) 75 Mg Tablet, 75 MG PO DAILY, TAB 11/17/19 Atorvastatin Calcium (Lipitor) 40 Mg Tablet, 40 MG PO DAILY, TAB 11/17/19 Acetaminophen (Acetaminophen) 325 Mg Tablet, 650 MG PO Q6H PRN for PAIN-MILD (1- 4), TAB 11/17/19 Discontinued Scripts Enoxaparin Sodium (Enoxaparin Sodium) 100 Mg/1 Ml Syringe, 100 MG SQ DAILY, #3 SYRINGE 1 Refill Prov:JOSE RAMON PETER MD 10/30/20 Nitroglycerin (Nitroglycerin) 0.4 Mg Tab.subl, 0 MG SL UD PRN for CHEST PAIN (ANGINA), #30 TAB Prov:SIXTO ANAND DO 07/01/20 Objective Exam Left Hip: No wounds, SER, + DF, sensation grossly intact to light touch Assessment and Plan Assessment Displaced Left Femoral Neck Fracture Problem List Displaced Left Femoral Neck Fracture Plan Will cancel procedure for today. Proceed with left hip bipolar when medically stable/optimized. Final Diagonsis Displaced Left Femoral Neck Fracture Level of the visit: Level 3 Focused Exam Lactate Level 08/11/21 04:34: Lactic Acid Level 1.69 Lactic Acid Level Laboratory Tests Test 08/11/21 04:34 Lactic Acid Level 1.69 MMOL/L (0.50-2.00) RITA UP MD Aug 11, 2021 07:38
[2021-08-11] MEDS: polyethylene glycoL POWDER 17 GM (MIRALAX) PACK PO SCH ×2 (07:40→20:30)
[2021-08-11] MEDS: cefTRIAXone 1 GM PRE-MIX 50 ML IV SCH (08:29)
[2021-08-11] MEDS ORDERED: FUROSEMIDE 20 MG (LASIX) TAB PO PRN (10:00)
[2021-08-11] MEDS ORDERED: LORATADINE (CLARITIN) 10 MG TAB PO PRN (10:30)
--- NOTE | 2021-08-11 10:56 | Cardiology Progress Note ---
Subjective Date Seen by Provider: Aug 11, 2021 Time Seen by Provider: 10:54 Subjective/Events-last exam Patient went back to atrial fibrillation, had an episode of shortness of breath requiring BiPAP At this time she is feeling better, laying down comfortably in bed. No chest pain. Review of Systems General: No Chills, No Night Sweats; Fatigue, Malaise; No Appetite, No Other HEENT: No Head Aches, No Visual Changes, No Eye Pain, No Ear Pain, No Dysphasia, No Sinus Congestion, No Post Nasal Drip, No Sore Throat, No Other Pulmonary: Dyspnea; No Cough, No Pleuritic Chest Pain, No Other Cardiovascular: No: Chest Pain, Palpitations, Orthopnea, Paroxysmal Noc. Dyspnea, Edema, Lt Headedness, Other Focused Exam Lactate Level 08/11/21 04:34: Lactic Acid Level 1.69 Objective-Cardiology Exam Last Set of Vital Signs Vital Signs 08/11/21 08/11/21 08/11/21 08/11/21 07:47 08:00 10:00 10:18 Temp 36.4 Pulse 98 Resp 9 B/P (MAP) 117/92 Pulse Ox 97 O2 Delivery Nasal Cannula O2 Flow Rate 5.00 FiO2 90 I&O Intake and Output 08/11/21 00:00 Intake Total 740 ml Output Total 750 ml Balance -10 ml Intake Oral 740 ml Output Urine Total 750 ml Daily Weight Change Unsure General: Alert, Oriented X3, Cooperative HEENT: Atraumatic, PERRLA Neck: Supple, No JVD, No Thyromegaly Lungs: Normal Air Movement Heart: Normal S1, Normal S2, No Murmurs, Other (Atrial fibrillation) Abdomen: Normal Bowel Sounds, Soft, No Tenderness, No Hepatosplenomegaly, No Masses Extremities: No Clubbing, No Edema, Normal Pulses, No Tenderness/Swelling Skin: No Rashes, No Significant Lesion Neuro: Normal Speech, Normal Tone, Sensation Intact Psych/Mental Status: Mental Status NL, Mood NL Results Lab Laboratory Tests 08/11/21 04:34 A/P-Cardiology Admission Diagnosis Left hip fracture CAD PAF HTN Assessment/Plan Left hip fracture secondary to nonsyncopal fall, reports she tripped over her dog at home. Planning for surgery with Dr. Bee once INR is under 1.5. Status post acute respiratory insufficiency, transferred to the intensive care unit, currently feeling better, breathing better. Coronary artery disease, history of multiple interventions. LHC done Jun 28, 2020 revealing total occlusion of the circumflex artery with successful balloon angioplasty and 50 percent residual stenosis, failed attempt to place stent d/t calcification. Severe stenosis in the stent in the LAD, underwent balloon angioplasty with mild to moderate residual stenosis, known to have Synergy 3.5x28 and 3.0x16mm, RCA has multiple stents Synergy 4.0 x38 and 3.5 x 38 that were patent with sm vessel dz distally. Patient had NSTEMI and underwent LHC on 10/29/20 with stenting to the circumflex artery using Abiola 2.5x15mm expanded to 2.6mm with excellent results. Maintained on Plavix and Coumadin, both currently on hold at this time CHF, chronic compensated LV systolic dysfunction, ischemic cardiomyopathy, EF 35-40%. Restarted on JAGDEEP-I and beta blockers during hospitalization earlier this month. Continue to monitor. Paroxysmal atrial fibrillation, went back to atrial fibrillation, I will start Cardizem and monitor tolerance and response. Did not receive her Coreg yet. I will start her on heparin drip. 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 Pierce at [facility]. Most recent interrogation done in our office Carotid artery stenosis, hx of right carotid stenting, Hx CVA unknown date Poor memory GERD/PUD Preoperative cardiovascular clearance- overall, patient is considered intermediate risk of perioperative cardiovascular complications. Risks versus benefits will be deferred to surgeon. Will continue to hold Coumadin and Plavix at this time. MACARIO CARO MD Aug 11, 2021 10:56
[2021-08-11] MEDS ORDERED: HEParin DRIP 25000 UNIT/500ML 500 ML IV SCH (11:00)
--- NOTE | 2021-08-11 11:37 | Progress Note - Hospitalist ---
REJIBRENDA Froy 08/11/21 1137: Subjective HPI/CC On Admission Date Seen by Provider: Aug 11, 2021 Time Seen by Provider: 07:38 CC: Left Hip Fracture Subjective/Events-last exam Ms. Nolasco was moved from the 4th floor up to ICU last night due to transitioning into atrial fibrillation. She was given diltiazem and metoprolol overnight. The plan was for surgery today but that has been cancelled. This morning she was on BiPAP in the ICU during our encounter which resulted in a limited conversation. She reports feeling much less pain today than yesterday and was more alert today. She states that she is ready for her surgery because she is ready to go home. Review of Systems General: No Chills, No Fatigue Cardiovascular: No: Chest Pain, Palpitations Gastrointestinal: No: Nausea, Vomiting, Abdominal Pain Focused Exam Lactate Level 08/11/21 04:34: Lactic Acid Level 1.69 Capillary Refill: Less Than 3 Seconds Peripheral Pulses: 2+ Radial Pulses (R), 2+ Radial Pulses (L) Objective Exam Vital Signs Vital Signs Date Time Temp Pulse Resp B/P (MAP) Pulse Ox O2 Delivery O2 Flow Rate FiO2 08/11/21 11:00 93 25 120/88 97 Nasal Cannula 5.00 08/11/21 08:00 90 08/11/21 07:47 36.4 Capillary Refill : Less Than 3 Seconds General Appearance: No Apparent Distress (Much better today than yesterday but on BiPAP), Anxious HEENT: PERRL/EOMI; No Moist Mucous Membranes, No Scleral Icterus (L), No Scleral Icterus (R) Neck: Normal Inspection, Non Tender; No Lymphadenopathy (L), No Lymphadenopathy (R) Respiratory: Chest Non Tender, No Accessory Muscle Use, No Respiratory Distress, Wheezing Cardiovascular: No Murmur, Normal Peripheral Pulses, Irregularly Irregular Gastrointestinal: Normal Bowel Sounds, Non Tender, Soft Extremity: Normal Capillary Refill, Normal Inspection, Non Tender, No Calf Tenderness, No Pedal Edema Neurologic/Psychiatric: Alert, Oriented x3, No Motor/Sensory Deficits, 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 Assessment/Plan Assessment and Plan Assess & Plan/Chief Complaint Assessment Left femur fx - Consult Dr. Bee - Plan is for surgery when she is medically stable - Current INR is 1.7. Waiting for INR < 1.5 AFib - Given metoprolol and diltiazem overnight - Monitor in ICU - No acute changes on CXR overnight h/o CAD h/o coronary stenting - Takes Plavix and Warfarin Plan Hold Plavix and Warfarin until Make NPO at midnight, normal diet today Give vitamin K to help decrease INR to < 1.5 to be a good surgical candidate Pain control as needed TAMARA ANAND DO 08/12/21 0521: Subjective Subjective/Events-last exam Pt required ICU transfer due to AFIB with RVR and hypoxia BiPAP maintained with good results INR 1.7 ABG showed respiratory alkalosis CXR is negative WBC remains at 14 Poor prognosis remains Review of Systems General: Fatigue Pulmonary: Dyspnea Objective Exam General Appearance: No Apparent Distress, WD/WN, Anxious, Chronically ill Respiratory: No Accessory Muscle Use, No Respiratory Distress, Decreased Breath Sounds Cardiovascular: Irregularly Irregular, Tachycardia Neurologic/Psychiatric: Alert, Oriented x3, No Motor/Sensory Deficits, Normal Mood/Affect Assessment/Plan Assessment and Plan Assess & Plan/Chief Complaint Supportive care ICU care Heparin drip Monitor oxygen Supervisory-Addendum Brief Verification & Attestation Participated in pt care: history, MDM, physical Personally performed: exam, history, MDM, supervision of care Care discussed with: Medical Student Procedures: n/a Results interpretation: Verified all documentation Verification and Attestation of Medical Student E/M Service A medical student performed and documented this service in my presence. I reviewed and verified all information documented by the medical student and made modifications to such information, when appropriate. I personally performed the physical exam and medical decision making. Tamara Anand, Aug 12, 2021,05:20 BRENDA MENDOZA Aug 11, 2021 11:37 TAMARA ANAND DO Aug 12, 2021 05:21
[2021-08-11 11:54] LABS: HEMATOCRIT 41 % (35-52); HEMOGLOBIN 13.3 g/dL (11.5-16.0); MEAN CORPUSCULAR HEMOGLOBIN 30 pg (25-34); MEAN CORPUSCULAR HGB CONC 33 g/dL (32-36); MEAN CORPUSCULAR VOLUME 90 fL (80-99); MEAN PLATELET VOLUME 10.4 fL (9.0-12.2); PLATELET COUNT 177 10^3/uL (130-400); WHITE BLOOD COUNT 10.7 10^3/uL (4.3-11.0)
[2021-08-11 12:01] LABS: INR 1.6 (0.8-1.4); PROTHROMBIN TIME PATIENT 19.3 SEC (12.2-14.7)
[2021-08-11] MEDS: HEParin 1000 UNIT/ML (10ML VIAL) FOR BOLUS IV PRN ×2 (12:18→17:44)
[2021-08-11] MEDS: morphine INJ 4 MG/ML 1 ML (VIAL/SYRINGE) IVP PRN ×2 (14:18→21:47)
[2021-08-11] MEDS: NS IV 1000 ML 1,000 ML IV SCH (14:35)
[2021-08-11] MEDS: GABAPENTIN 100 MG (NEURONTIN) CAP PO SCH (20:10)
[2021-08-11] MEDS: IRON POLYSAC 150 MG CAP (NIFEREX) PO SCH (20:11)
[2021-08-11] MEDS: KCL 10 MEQ TAB (MICRO K) PO SCH (20:11)
[2021-08-12] VITALS (8 sets, daily range): BP systolic 81–122; BP diastolic 47–81
[2021-08-12] MEDS: morphine INJ 4 MG/ML 1 ML (VIAL/SYRINGE) IVP PRN
[2021-08-12] MEDS ORDERED: LACTATED RINGERS 1,000 ML IV ONE (02:19)
[2021-08-12] MEDS ORDERED: LACTATED RINGERS 1,000 ML IV SCH (02:30)
[2021-08-12] MEDS: RT-ALBUTEROL SULF 2.5 MG/3 ML PRE-MIX VIAL INH SCH ×5 (02:31→18:16)
[2021-08-12] MEDS: LACTATED RINGERS 1,000 ML IV SCH ×3 (03:01→23:17)
[2021-08-12 06:04] LABS: BASOPHILS % (AUTO) 0 % (0-10); EOSINOPHILS # (AUTO) 0.2 10^3/uL (0.0-0.3); EOSINOPHILS % (AUTO) 2 % (0-10); HEMATOCRIT 37 % (35-52); HEMOGLOBIN 11.8 g/dL (11.5-16.0); LYMPHOCYTES # (AUTO) 1.2 10^3/uL (1.0-4.0); LYMPHOCYTES % (AUTO) 12 % (12-44); MEAN CORPUSCULAR HEMOGLOBIN 29 pg (25-34); MEAN CORPUSCULAR HGB CONC 32 g/dL (32-36); MEAN CORPUSCULAR VOLUME 92 fL (80-99); MEAN PLATELET VOLUME 10.5 fL (9.0-12.2); MONOCYTES # (AUTO) 1.1 10^3/uL (0.0-1.0); MONOCYTES % (AUTO) 11 % (0-12); NEUTROPHILS # (AUTO) 7.4 10^3/uL (1.8-7.8); NEUTROPHILS % (AUTO) 74 % (42-75); PLATELET COUNT 148 10^3/uL (130-400)
[2021-08-12 06:39] LABS: INR 1.5 (0.8-1.4); PROTHROMBIN TIME PATIENT 18.6 SEC (12.2-14.7)
[2021-08-12 06:50] LABS: ALBUMIN 3.4 GM/DL (3.2-4.5); BILIRUBIN,TOTAL 0.5 MG/DL (0.1-1.0); CALCIUM 9.6 MG/DL (8.5-10.1); CREATININE SERUM 0.74 MG/DL (0.60-1.30); MAGNESIUM 1.7 MG/DL (1.6-2.4); POTASSIUM 3.7 MMOL/L (3.6-5.0); TOTAL PROTEIN 6.8 GM/DL (6.4-8.2)
[2021-08-12 07:08] LABS: PHOSPHORUS 2.2 MG/DL (2.3-4.7)
--- NOTE | 2021-08-12 08:11 | Progress Note - Ortho ---
Progress Note Subjective Date of Exam 08/12/21 Chief Complaint Left Hip Pain HPI/Events since last exam Off of BiPap. Currently on oxygen by NC. Remains in ICU on telemetry. Review of Systems not obtained Allergies: Coded Allergies: Penicillins (Unverified Allergy, Unknown, 11/17/19) Home Meds Reported Medications Furosemide (Furosemide) 20 Mg Tablet, 20 MG PO DAILY PRN for FLUID RETENTION, TAB 08/10/21 Clopidogrel Bisulfate (Clopidogrel) 75 Mg Tablet, 75 MG PO DAILY, TAB 08/10/21 Iron Polysaccharide Complex (Ferrex 150) 150 Mg Capsule, 150 MG PO BID, CAP 08/10/21 Lisinopril (Lisinopril) 10 Mg Tablet, 10 MG PO DAILY, TAB 08/10/21 Diltiazem HCl (Diltiazem 24Hr ER) 180 Mg Cap.er.24h, 180 MG PO DAILY, TAB 08/10/21 Potassium Chloride (Klor-Con 10) 10 Meq Tablet.er, 10 MEQ PO BID, TAB 08/10/21 Fexofenadine HCl (Fexofenadine HCl) 60 Mg Tablet, 60 MG PO DAILY PRN for ALLERGY SYMPTOMS, TAB 08/10/21 Atorvastatin Calcium (Atorvastatin Calcium) 40 Mg Tablet, 40 MG PO HS, TAB 08/10/21 Gabapentin (Gabapentin) 100 Mg Capsule, 100 MG PO BID, CAP 08/10/21 Sertraline HCl (Sertraline HCl) 100 Mg Tablet, 100 MG PO DAILY, TAB TAKES 50MG +100MG TO EQUAL 150MG 08/10/21 Sertraline HCl (Sertraline HCl) 50 Mg Tablet, 50 MG PO DAILY, TAB TAKES 50MG +100MG TO EQUAL 150MG 08/10/21 Calcium Carbonate/Vitamin D3 (Calcium + Vitamin D Tablet) 1 Each Tablet, 1 EACH PO DAILY, TAB 08/10/21 Cyanocobalamin (Vitamin B-12) (Vitamin B-12) 500 Mcg Tablet, 500 MCG PO DAILY, TAB 08/10/21 Carvedilol (Carvedilol) 12.5 Mg Tablet, 12.5 MG PO BID WITH MEALS, TAB 10/26/20 Warfarin Sodium (Warfarin Sodium) 1 Mg Tablet, 1 MG PO MO,TU,ДМИТРИЙ,FRI,SAT@HS, TAB 06/30/20 Warfarin Sodium (Warfarin Sodium) 1 Mg Tablet, 1.5 MG PO SUN,WED@HS, TAB TAKES 1 & (1MG) TAB 06/30/20 Cholecalciferol (Vitamin D3) (Vitamin D3) 50 Mcg Capsule, 50 MCG PO DAILY, CAP 02/24/20 Discontinued Reported Medications Docusate Sodium (Stool Softener) 100 Mg Tablet, 100 MG PO DAILY PRN for CONSTIPATION-1ST LINE, TAB 10/26/20 Tolterodine Tartrate (Tolterodine Tartrate ER) 4 Mg Cap.er.24h, 4 MG PO DAILY, CAP 02/24/20 Calcium Carbonate (Calcium Carbonate) 600 Mg Tablet, 600 MG PO Q48H, TAB 11/18/19 Lisinopril (Lisinopril) 20 Mg Tablet, 20 MG PO DAILY, TAB 11/17/19 Diltiazem HCl (Cartia Xt) 180 Mg Cap.er.24h, 180 MG PO DAILY, CAP 11/17/19 Cyanocobalamin (Vitamin B-12) 100 Mcg Tablet, 1000 MCG PO DAILY, TAB 11/17/19 Clopidogrel Bisulfate (Plavix) 75 Mg Tablet, 75 MG PO DAILY, TAB 11/17/19 Atorvastatin Calcium (Lipitor) 40 Mg Tablet, 40 MG PO DAILY, TAB 11/17/19 Acetaminophen (Acetaminophen) 325 Mg Tablet, 650 MG PO Q6H PRN for PAIN-MILD (1- 4), TAB 11/17/19 Discontinued Scripts Enoxaparin Sodium (Enoxaparin Sodium) 100 Mg/1 Ml Syringe, 100 MG SQ DAILY, #3 SYRINGE 1 Refill Prov:JOSE RAMON PETER MD 10/30/20 Nitroglycerin (Nitroglycerin) 0.4 Mg Tab.subl, 0 MG SL UD PRN for CHEST PAIN (ANGINA), #30 TAB Prov:SIXTO ANAND DO 07/01/20 Objective Exam Left Leg: SER, positive dorisflexion, sensation grossly intact to light touch Vital Signs Vital Signs Date Time Temp Pulse Resp B/P (MAP) Pulse Ox O2 Delivery O2 Flow Rate FiO2 08/12/21 07:02 95 Nasal Cannula 5.00 08/12/21 06:00 109 16 98 NIV Bilevel 30.00 08/12/21 05:00 70 18 104/67 98 NIV Bilevel 30.00 08/12/21 04:10 NIV Bilevel 30 08/12/21 04:00 36.5 08/12/21 04:00 91 21 87/53 97 NIV Bilevel 30.00 08/12/21 03:00 89 14 92/64 97 NIV Bilevel 30.00 08/12/21 02:34 90 20 97 30.00 08/12/21 02:32 96 NIV Bilevel 30 08/12/21 02:00 112 12 102/61 97 NIV Bilevel 30.00 08/12/21 01:00 125 08/12/21 01:00 105 13 94/79 96 NIV Bilevel 30.00 08/12/21 00:00 36.6 08/12/21 00:00 124 16 96/46 96 NIV Bilevel 30.00 08/11/21 23:18 NIV Bilevel 30.00 08/11/21 23:16 103 29 92 30.00 08/11/21 23:14 High Flow N/C 10.00 08/11/21 23:12 High Flow N/C 10.00 08/11/21 23:00 101 23 105/81 90 Nasal Cannula 7.00 08/11/21 22:40 93 Nasal Cannula 5.00 08/11/21 22:00 Nasal Cannula 7.00 08/11/21 22:00 97 22 146/110 93 Nasal Cannula 7.00 08/11/21 21:00 85 19 95 Nasal Cannula 5.00 08/11/21 20:24 Nasal Cannula 5.00 08/11/21 20:00 114 17 127/101 92 Nasal Cannula 5.00 08/11/21 19:50 36.5 08/11/21 19:32 36.8 105 14 120/98 94 Nasal Cannula 5.00 08/11/21 19:09 93 Nasal Cannula 5.00 08/11/21 19:00 110 08/11/21 18:00 113 33 111/72 91 Nasal Cannula 5.00 08/11/21 17:00 105 17 95/87 92 Nasal Cannula 5.00 08/11/21 16:00 102 13 152/97 96 Nasal Cannula 5.00 08/11/21 16:00 36.5 08/11/21 15:00 98 26 156/71 93 Nasal Cannula 5.00 08/11/21 14:59 90 Nasal Cannula 5.00 08/11/21 14:00 100 13 179/96 90 Nasal Cannula 5.00 08/11/21 13:00 97 19 170/86 96 Nasal Cannula 5.00 08/11/21 12:34 94 08/11/21 12:00 93 12 166/85 96 Nasal Cannula 5.00 08/11/21 11:00 93 25 120/88 97 Nasal Cannula 5.00 08/11/21 10:18 97 Nasal Cannula 5.00 08/11/21 10:00 98 9 117/92 94 Nasal Cannula 5.00 08/11/21 09:30 Nasal Cannula 5.00 08/11/21 09:00 NIV Bilevel 30.00 08/11/21 09:00 112 15 122/86 96 NIV Bilevel 30.00 08/11/21 08:45 109 24 99 08/11/21 08:45 NIV Bilevel 50.00 08/11/21 08:30 100 NIV Bilevel 70.00 08/11/21 08:30 91 20 119/71 99 08/11/21 08:15 102 21 87 I & O 08/12/21 06:59 Intake Total 625 ml Output Total 365 ml Balance 260 ml Lab Results Laboratory Tests 08/11/21 11:42: White Blood Count 10.7, Red Blood Count 4.49, Hemoglobin 13.3, Hematocrit 41, M catarino Corpuscular Volume 90, Mean Corpuscular Hemoglobin 30, Mean Corpuscular Hemoglobin Concent 33, Red Cell Distribution Width 14.6H, Platelet Count 177, Mean Platelet Volume 10.4, Prothrombin Time 19.3H, INR Comment 1.6H, Activated Partial Thromboplast Time 38H 08/11/21 16:49: Activated Partial Thromboplast Time 38H 08/11/21 23:37: Activated Partial Thromboplast Time 140*H 08/12/21 05:44: White Blood Count 10.0, Red Blood Count 4.04, Hemoglobin 11.8, Hematocrit 37, Mean Corpuscular Volume 92, Mean Corpuscular Hemoglobin 29, Mean Corpuscular Hemoglobin Concent 32, Red Cell Distribution Width 14.7H, Platelet Count 148, Mean Platelet Volume 10.5, Prothrombin Time 18.6H, INR Comment 1.5H, Activated Partial Thromboplast Time 73H, Immature Granulocyte % (Auto) 1, Neutrophils (%) (Auto) 74, Lymphocytes (%) (Auto) 12, Monocytes (%) (Auto) 11, Eosinophils (%) (Auto) 2, Basophils (%) (Auto) 0, Neutrophils # (Auto) 7.4, Lymphocytes # (Auto) 1.2, Monocytes # (Auto) 1.1H, Eosinophils # (Auto) 0.2, Basophils # (Auto) 0.0, Immature Granulocyte # (Auto) 0.1, Sodium Level 139, Potassium Level 3.7, Chloride Level 105, Carbon Dioxide Level 22, Anion Gap 12, Blood Urea Nitrogen 23H, Creatinine 0.74, Estimat Glomerular Filtration Rate 75, BUN/Creatinine Ratio 31, Glucose Level 134H, Calcium Level 9.6, Corrected Calcium 10.1, Phosphorus Level 2.2L, Magnesium Level 1.7, Total Bilirubin 0.5, Aspartate Amino Transf (AST/SGOT) 31, Alanine Aminotransferase (ALT/SGPT) 18, Alkaline Phosphatase 86, Total Protein 6.8, Albumin 3.4 Microbiology 08/10/21 MRSA Screen - Final, Complete MRSA not isolated 08/09/21 Urine Culture - Final, Complete Klebsiella pneumoniae Assessment and Plan Assessment Displaced Left Femoral Neck Fracture Problem List Displaced Left Femoral Neck Fracture Plan Will place on schedule to proceed with left hip bipolar today. Discussed with patient and daughter. Final Diagonsis Displaced Left Femoral Neck Fracture Level of the visit: Level 3 Focused Exam Lactate Level 08/11/21 04:34: Lactic Acid Level 1.69 RITA UP MD Aug 12, 2021 08:11
[2021-08-12] MEDS: KCL 10 MEQ TAB (MICRO K) PO SCH ×2 (08:43→23:18)
[2021-08-12] MEDS: CYANOCOBALAMIN 1,000 MCG (VITAMIN B-12) TABLET PO SCH (08:44)
[2021-08-12] MEDS: VITAMIN D3 25 MCG (1,000 UNITS) TABLET PO SCH (08:44)
[2021-08-12] MEDS: CALCIUM CARB + VIT D 600 MG (CALCARB + D) TAB PO SCH (08:44)
[2021-08-12] MEDS: lisINopril 10 MG (PRINIVIL) TABLET PO SCH (08:44)
[2021-08-12] MEDS: IRON POLYSAC 150 MG CAP (NIFEREX) PO SCH ×2 (08:44→23:17)
--- NOTE | 2021-08-12 08:44 | Cardiology Progress Note ---
Subjective Date Seen by Provider: Aug 12, 2021 Time Seen by Provider: 08:43 Subjective/Events-last exam Patient is laying down in bed, feeling better. Still borderline tachycardic Review of Systems General: No Chills, No Night Sweats, No Fatigue, No Malaise, No Appetite, No Other HEENT: No Head Aches, No Visual Changes, No Eye Pain, No Ear Pain, No Dysphasia, No Sinus Congestion, No Post Nasal Drip, No Sore Throat, No Other Pulmonary: No Dyspnea, No Cough, No Pleuritic Chest Pain, No Other Cardiovascular: No: Chest Pain, Palpitations, Orthopnea, Paroxysmal Noc. Dyspnea, Edema, Lt Headedness, Other Focused Exam Lactate Level 08/11/21 04:34: Lactic Acid Level 1.69 Objective-Cardiology Exam Last Set of Vital Signs Vital Signs 08/12/21 08/12/21 08/12/21 08/12/21 08/12/21 04:10 05:00 06:00 07:02 08:24 Temp 36.3 Pulse 109 Resp 16 B/P (MAP) 104/67 Pulse Ox 95 O2 Delivery Nasal Cannula O2 Flow Rate 5.00 FiO2 30 I&O Intake and Output 08/12/21 00:00 Intake Total 125 ml Output Total 250 ml Balance -125 ml Intake Oral 125 ml Output Urine Total 250 ml # Voids 1 General: Alert, Oriented X3, Cooperative HEENT: Atraumatic, PERRLA Neck: Supple, No JVD, No Thyromegaly Lungs: Normal Air Movement Heart: Normal S1, Normal S2, No Murmurs, Other (Atrial fibrillation) Abdomen: Normal Bowel Sounds, Soft, No Tenderness, No Hepatosplenomegaly, No Masses Extremities: No Clubbing, No Edema, Normal Pulses, No Tenderness/Swelling Skin: No Rashes, No Significant Lesion Neuro: Normal Speech, Normal Tone, Sensation Intact Psych/Mental Status: Mental Status NL, Mood NL Results Lab Laboratory Tests 08/11/21 11:42 08/12/21 05:44 A/P-Cardiology Admission Diagnosis Left hip fracture CAD PAF HTN Assessment/Plan Left hip fracture secondary to nonsyncopal fall, reports she tripped over her dog at home. Planning for surgery with Dr. Bee once INR is under 1.5. Status post acute respiratory insufficiency, transferred to the intensive care unit, currently feeling better, breathing better. Coronary artery disease, history of multiple interventions. LHC done Jun 28, 2020 revealing total occlusion of the circumflex artery with successful balloon angioplasty and 50 percent residual stenosis, failed attempt to place stent d/t calcification. Severe stenosis in the stent in the LAD, underwent balloon angioplasty with mild to moderate residual stenosis, known to have Synergy 3.5x28 and 3.0x16mm, RCA has multiple stents Synergy 4.0 x38 and 3.5 x 38 that were patent with sm vessel dz distally. Patient had NSTEMI and underwent LHC on 10/29/20 with stenting to the circumflex artery using Abiola 2.5x15mm expanded to 2.6mm with excellent results. Maintained on Plavix and Coumadin, both currently on hold at this time CHF, chronic compensated LV systolic dysfunction, ischemic cardiomyopathy, EF 35-40%. Restarted on JAGDEEP-I and beta blockers during hospitalization earlier this month. Continue to monitor. Paroxysmal atrial fibrillation, went back to atrial fibrillation, maintained on Cardizem drip, borderline hypotensive. I will start her on heparin drip. May hold heparin spinner continuous for the OR s/p Medtronic dual chamber PPM in [address] Pierce at [facility]. Most recent interrogation done in our office Carotid artery stenosis, hx of right carotid stenting, Hx CVA unknown date Poor memory GERD/PUD Preoperative cardiovascular clearance- overall, patient is considered intermediate risk of perioperative cardiovascular complications. Risks versus benefits will be deferred to surgeon. Will continue to hold Coumadin and Plavix at this time. MACARIO CARO MD Aug 12, 2021 08:44
[2021-08-12] MEDS: SERTRALINE 50 MG (ZOLOFT) TABLET PO SCH (08:45)
[2021-08-12] MEDS: GABAPENTIN 100 MG (NEURONTIN) CAP PO SCH ×2 (08:45→23:17)
[2021-08-12] MEDS: SERTRALINE 100 MG (ZOLOFT) TAB PO SCH (08:45)
[2021-08-12] MEDS: polyethylene glycoL POWDER 17 GM (MIRALAX) PACK PO SCH ×2 (08:45→23:18)
[2021-08-12] MEDS: cefTRIAXone 1 GM PRE-MIX 50 ML IV SCH (10:08)
--- NOTE | 2021-08-12 10:50 | Tele-ICU Progress Note ---
Subjective Date Seen by a Provider: Aug 12, 2021 Time Seen by a Provider: 10:49 Sepsis Event Evaluation Height, Weight, BMI Height: '" Weight: lbs. oz. kg; 23.14 BMI Method: Focused Exam Lactate Level 08/11/21 04:34: Lactic Acid Level 1.69 Exam Exam Patient acknowledged, consented, and participated in this virtual visit which was conducted using real time audio/video Vital Signs Date Time Temp Pulse Resp B/P (MAP) Pulse Ox O2 Delivery O2 Flow Rate FiO2 08/12/21 10:26 95 Nasal Cannula 3.00 08/12/21 09:00 73 11 118/74 100 NIV Bilevel 30.00 08/12/21 08:24 36.3 08/12/21 08:00 73 18 115/92 100 NIV Bilevel 30.00 08/12/21 07:02 95 Nasal Cannula 5.00 08/12/21 07:00 62 21 102/67 97 NIV Bilevel 30.00 08/12/21 07:00 82 08/12/21 06:00 109 16 98 NIV Bilevel 30.00 08/12/21 05:00 70 18 104/67 98 NIV Bilevel 30.00 08/12/21 04:10 NIV Bilevel 30 08/12/21 04:00 36.5 08/12/21 04:00 91 21 87/53 97 NIV Bilevel 30.00 08/12/21 03:00 89 14 92/64 97 NIV Bilevel 30.00 08/12/21 02:34 90 20 97 30.00 08/12/21 02:32 96 NIV Bilevel 30 08/12/21 02:00 112 12 102/61 97 NIV Bilevel 30.00 08/12/21 01:00 125 08/12/21 01:00 105 13 94/79 96 NIV Bilevel 30.00 08/12/21 00:00 36.6 08/12/21 00:00 124 16 96/46 96 NIV Bilevel 30.00 08/11/21 23:18 NIV Bilevel 30.00 08/11/21 23:16 103 29 92 30.00 08/11/21 23:14 High Flow N/C 10.00 08/11/21 23:12 High Flow N/C 10.00 08/11/21 23:00 101 23 105/81 90 Nasal Cannula 7.00 08/11/21 22:40 93 Nasal Cannula 5.00 08/11/21 22:00 Nasal Cannula 7.00 08/11/21 22:00 97 22 146/110 93 Nasal Cannula 7.00 08/11/21 21:00 85 19 95 Nasal Cannula 5.00 08/11/21 20:24 Nasal Cannula 5.00 08/11/21 20:00 114 17 127/101 92 Nasal Cannula 5.00 08/11/21 19:50 36.5 08/11/21 19:32 36.8 105 14 120/98 94 Nasal Cannula 5.00 08/11/21 19:09 93 Nasal Cannula 5.00 08/11/21 19:00 110 08/11/21 18:00 113 33 111/72 91 Nasal Cannula 5.00 08/11/21 17:00 105 17 95/87 92 Nasal Cannula 5.00 08/11/21 16:00 102 13 152/97 96 Nasal Cannula 5.00 08/11/21 16:00 36.5 08/11/21 15:00 98 26 156/71 93 Nasal Cannula 5.00 08/11/21 14:59 90 Nasal Cannula 5.00 08/11/21 14:00 100 13 179/96 90 Nasal Cannula 5.00 08/11/21 13:00 97 19 170/86 96 Nasal Cannula 5.00 08/11/21 12:34 94 08/11/21 12:00 93 12 166/85 96 Nasal Cannula 5.00 08/11/21 11:00 93 25 120/88 97 Nasal Cannula 5.00 I & O 08/12/21 07:00 Intake Total 625 ml Output Total 365 ml Balance 260 ml Height & Weight Height: '" Weight: lbs. oz. kg; 23.14 BMI Method: General Appearance: No Apparent Distress, WD/WN, Anxious, Chronically ill HEENT: PERRL/EOMI; No Moist Mucous Membranes, No Scleral Icterus (L), No Scleral Icterus (R) Neck: Normal Inspection, Non Tender; No Lymphadenopathy (L), No Lymphadenopathy (R) Respiratory: No Accessory Muscle Use, No Respiratory Distress, Decreased Breath Sounds Cardiovascular: Irregularly Irregular, Tachycardia Capillary Refill: Less Than 3 Seconds Peripheral Pulses: 2+ Radial Pulses (R), 2+ Radial Pulses (L) Gastrointestinal: normal bowel sounds, non tender, soft; No rebound, No tenderness Extremity: Normal Capillary Refill, Normal Inspection, Non Tender, No Calf Tenderness, No Pedal Edema Neurologic/Psychiatric: Alert, Oriented x3, No Motor/Sensory Deficits, Normal Mood/Affect Skin: Normal Color, Warm/Dry Lymphatic: No Adenopathy (Head and neck) Results Lab Laboratory Tests 08/11/21 04:34 08/11/21 11:42 08/12/21 05:44 Assessment/Plan Assessment/Plan (Tele-ICU Physician , Progress Note ) Available chart/ vitals / labs / Images reviewed Video assessment done using teleICU camera, rest of exam as per RN Discussed with RN , EXAM PER RN Events overnight : Afebrile FiO2 - 3L I/O = laurie 120 Drips: Pressors: , hemodynamically stable Consultants: [facility] Hospital course: (08/09) 81y/M in s/p fall with left femur fx. plan for OR on 08/11 pt has a uti (08/11) tx to icu wth afib , pt now requiring bipap A/P Displaced Left Femoral Neck Fracture - for Sx today A fib RVR, s/p PPM - rate controlled - heparin gtt ( coumadin on hols for Sx CAD - EF 35-40%. - as per cards Acute resp failure - in association with afib RVR - needed Bipap - off now UTI with Klebsiella -Cont abx Lines : (Central Line Necessity Reviewed) Mandujano: OG: Nutrition: Analgesia: Anxiety/ delirium xanax VTE Prophylaxis: hep ftt Stress Ulcer Prophylaxis: po Glycemic Control: Plans in collaboration with bedside consultants and IM MDs. Discussed with RN to reach out if any questions or concerns A total of 31 minutes of critical care time was devoted to this patient today, required to treat and/or prevent further deterioration of critical care condition ( as above) . HERMINIO WHITE MD Aug 12, 2021 10:50
[2021-08-12] MEDS ORDERED: LACTATED RINGERS 1,000 ML IV PRN (13:30)
[2021-08-12] MEDS ORDERED: LACTATED RINGERS 500 ML IV SCH (14:00)
[2021-08-12] MEDS ORDERED: ONDANSETRON 4 MG/2 ML (SDV) Z0FRAN ONE (14:08)
[2021-08-12] MEDS ORDERED: LIDOCAINE PF 2% 5 ML (XYLOCAINE) VIAL ONE (14:08)
[2021-08-12] MEDS ORDERED: PHENYLEPHRINE 100 MCG/ML 10 ML (ANESTHESIA) SYR ONE (14:08)
[2021-08-12] MEDS ORDERED: fentaNYL INJ 100 MCG/2 ML AMP ONE (14:08)
[2021-08-12] MEDS ORDERED: proPOfol 200 MG/20 ML (DIPRIVAN) VIAL IV ONE (14:08)
[2021-08-12] MEDS ORDERED: CLINDAMYCIN 600 MG/50 ML IVPB 50 ML IV ONE (14:21)
[2021-08-12] MEDS ORDERED: PHENYLEPHRINE INJ 10 MG/ML (FOR DRIP KITS ONLY) ONE (15:11)
[2021-08-12] MEDS ORDERED: SUCCINYLCHOLINE INJ 100 MG/5 ML SYR/VIAL ONE (15:11)
--- NOTE | 2021-08-12 15:25 | Progress Note - Hospitalist ---
BRENDA MENDOZA 08/12/21 1525: Subjective HPI/CC On Admission Date Seen by Provider: Aug 12, 2021 Time Seen by Provider: 08:42 CC: Left Hip Fracture Subjective/Events-last exam Ms. Nolasco reports no overnight events and denies any pain this morning. Her INR was 1.[address] Bee and Dr. Martinez were both okay with surgery today. She said she was ready for the surgery to be done and ready to get home. Review of Systems General: No Chills, No Fatigue HEENT: No Head Aches Pulmonary: No Dyspnea, No Cough Cardiovascular: No: Chest Pain, Palpitations Gastrointestinal: No: Nausea, Vomiting, Abdominal Pain Neurological: No: Weakness, Confusion Focused Exam Lactate Level 08/11/21 04:34: Lactic Acid Level 1.69 Capillary Refill: Less Than 3 Seconds Peripheral Pulses: 2+ Radial Pulses (R), 2+ Radial Pulses (L) Objective Exam Vital Signs Vital Signs Date Time Temp Pulse Resp B/P (MAP) Pulse Ox O2 Delivery O2 Flow Rate FiO2 08/12/21 14:00 91 13 100/48 91 High Flow N/C 2.00 08/12/21 12:00 36.7 08/12/21 04:10 30 Capillary Refill : Less Than 3 Seconds General Appearance: No Apparent Distress, Anxious HEENT: PERRL/EOMI, Moist Mucous Membranes; No Scleral Icterus (L), No Scleral Icterus (R) Neck: Normal Inspection, Non Tender; No Lymphadenopathy (L), No Lymphadenopathy (R) Respiratory: Chest Non Tender, Lungs Clear, Normal Breath Sounds, No Accessory Muscle Use, No Respiratory Distress Cardiovascular: No Murmur, Normal Peripheral Pulses, Irregularly Irregular (In AFib this morning) Gastrointestinal: Normal Bowel Sounds, Non Tender, Soft Extremity: Normal Capillary Refill, Normal Inspection, No Calf Tenderness, No Pedal Edema Neurologic/Psychiatric: Alert, Oriented x3, No Motor/Sensory Deficits, Normal 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 Assessment/Plan Assessment and Plan Assess & Plan/Chief Complaint Assessment Left femur fx - Consult Dr. Bee - INR was 1.5 this morning, Dr. Martinez and Dr. Bee were okay with surgery AFib - Given metoprolol and diltiazem - Monitor in ICU - No acute changes h/o CAD h/o coronary stenting - Takes Plavix and Warfarin Plan Hold Plavix and Warfarin Rehab after surgery as tolerated Discharge when possible Pain control as needed TAMARA ANAND DO 08/13/21 0553: Subjective Subjective/Events-last exam Patient ready for surgery INR 1.5 Very complicated medical issues precludes anything but a poor prognosis Review of Systems General: Fatigue Pulmonary: Dyspnea Objective Exam General Appearance: No Apparent Distress, WD/WN, Anxious, Chronically ill Respiratory: Lungs Clear, Normal Breath Sounds Cardiovascular: Irregularly Irregular (In AFib this morning) Assessment/Plan Assessment and Plan Assess & Plan/Chief Complaint Surgery today Hold anticoagulation Supervisory-Addendum Brief Verification & Attestation Participated in pt care: history, MDM, physical Personally performed: exam, history, MDM, supervision of care Care discussed with: Medical Student Procedures: n/a Results interpretation: Verified all documentation Verification and Attestation of Medical Student E/M Service A medical student performed and documented this service in my presence. I reviewed and verified all information documented by the medical student and made modifications to such information, when appropriate. I personally performed the physical exam and medical decision making. Tamara Anand, Aug 13, 2021,05:52 BRENDA MENDOZA Aug 12, 2021 15:25 TAMARA ANAND DO Aug 13, 2021 05:53
[2021-08-12] MEDS ORDERED: TRANEXAMIC ACID 100 MG/ML 10 ML INJECTION ONE (15:26)
[2021-08-12] MEDS ORDERED: SEVOFLURANE (ULTANE) 15 ML INHAL SOLN ONE (16:02)
[2021-08-12] MEDS ORDERED: morphine INJ 10 MG/ML 1ML (SYR OR VIAL) IVP ONE (16:30)
[2021-08-12] MEDS ORDERED: ONDANSETRON 4 MG/2 ML (SDV) Z0FRAN IVP PRN (16:30)
--- NOTE | 2021-08-12 16:59 | Diagnostic Imaging Report ---
INDICATION: Fracture, postoperative. TECHNIQUE: AP pelvis 4:41 PM. CORRELATION STUDY: 08/09/2021 FINDINGS: Interval resection of the left femoral head and neck and placement of a left hip prosthesis. Alignment appears to be anatomic as visualized on single projection. Remote left-sided pubic rami fracture. Right hemipelvis unremarkable. Overlying soft tissue gas collections and skin ute are present over the left hip. IMPRESSION: 1. Suspect appearing immediate postoperative change left hip arthroplasty. Dictated by: Dictated on workstation # [id number]
--- NOTE | 2021-08-12 17:26 | Operative Report - Ortho ---
Operative Report Surgeon (s)/Telecine Operator (s) Surgeon RITA UP MD Telecine Operator n/a Pre-Operative Diagnosis Left Femoral Neck Fracture Post-Operative Diagnosis same Operative Report Date of Procedure: Aug 12, 2021 Name of Procedure Performed: Prosthetic replacement of left femoral neck fracture Description & Findings After obtaining informed consent and marking the patient, patient did receive IV antibiotics. Patient was taken to the operating room and general anesthesia was induced. Patient was placed in the lateral decubitus position with the left side up. Left lower extremity was prepped and draped in the usual sterile fashion. Surgical timeout was taken. A posterolateral approach was utilized. External rotators and capsule were taken down in one layer. Fracture hematoma was evacuated. Femoral head was removed from the acetabulum and sized. The fracture site on the femoral neck was freshened with a saw. A 45 mm bipolar component was trialed and found to have good fit. Attention was turned to the femur, [employer] cutter osteotome was used to remove the remainder of the femoral neck near the greater trochanter. Canal finder was inserted followed by the lateralizing reamer. Sequential broaching was began with a 1 and broaching to a 6. The 6 had good metaphyseal fit and fill. A -4 mm head and a 45 mm bipolar component were put on a 127 neck trial. This was located. Found to have grossly equal leg lengths. Stable in position of sleep and flexion with internal rotation this was accepted. Hip was atraumatically dislocated and the trial components were removed. The femoral canal and acetabulum were irrigated with pulsatile lavage. A size 6 Accolade II stem with a 127 neck was placed and set at the same level as the broach. A -4 mm head was impacted onto the Brownlee taper of the stem. A 45 mm bipolar component was placed. Hip was located and once again found to be stable. Further irrigation was performed. The fascial layer was closed with 0 ethibond. The subcutaneous layer was closed with 2-0 vicryl and the skin was closed with ute. Incision site was dressed with xeroform, 4x4s, ABD, and tape. Patient was placed in abduction pillow postoperatively and was transferred to hospital bed without incident. Tolerated the procedure well and was stable to recovery room. Anesthesia Type General Estimated Blood Loss 400 mL Specimen(s) collected/removed Femoral head sent RITA UP MD Aug 12, 2021 17:26
[2021-08-12 18:01] LABS: ABG BASE EXCESS 0.2 MMOL/L (-2.5-2.5); ABG OXYGEN SATURATION 99 % (94-100); ABG PCO2 40 MMHG (35-45); ABG PO2 133 MMHG (79-93)
[2021-08-12 18:04] LABS: INSPIRED O2 30%; PATIENT TEMP 36; VENTILATOR NO
[2021-08-12 18:25] LABS: BASOPHILS % (AUTO) 0 % (0-10); EOSINOPHILS # (AUTO) 0.2 10^3/uL (0.0-0.3); EOSINOPHILS % (AUTO) 2 % (0-10); HEMATOCRIT 37 % (35-52); HEMOGLOBIN 11.8 g/dL (11.5-16.0); LYMPHOCYTES # (AUTO) 0.6 10^3/uL (1.0-4.0); LYMPHOCYTES % (AUTO) 6 % (12-44); MEAN CORPUSCULAR HEMOGLOBIN 29 pg (25-34); MEAN CORPUSCULAR HGB CONC 32 g/dL (32-36); MEAN CORPUSCULAR VOLUME 93 fL (80-99); MEAN PLATELET VOLUME 10.4 fL (9.0-12.2); MONOCYTES # (AUTO) 0.4 10^3/uL (0.0-1.0); MONOCYTES % (AUTO) 4 % (0-12); NEUTROPHILS # (AUTO) 9.8 10^3/uL (1.8-7.8); NEUTROPHILS % (AUTO) 88 % (42-75); PLATELET COUNT 161 10^3/uL (130-400); WHITE BLOOD COUNT 11.1 10^3/uL (4.3-11.0)
[2021-08-12 18:37] LABS: POTASSIUM 4.3 MMOL/L (3.6-5.0)
[2021-08-12 18:38] LABS: CALCIUM 9.4 MG/DL (8.5-10.1)
[2021-08-12 18:42] LABS: CREATININE SERUM 0.68 MG/DL (0.60-1.30)
[2021-08-12 19:34] LABS: EOSINOPHILS % (MANUAL) 1 %; LYMPHOCYTES % (MANUAL) 11 %; MONOCYTES % (MANUAL) 5 %; NEUTROPHILS % (MANUAL) 83 %; RBC MORPH NORMAL
[2021-08-12] MEDS: CLINDAMYCIN 600 MG/50 ML IVPB 50 ML IV SCH (23:17)
[2021-08-13] MEDS: morphine INJ 4 MG/ML 1 ML (VIAL/SYRINGE) IVP PRN (00:37)
[2021-08-13] MEDS: RT-ALBUTEROL SULF 2.5 MG/3 ML PRE-MIX VIAL INH SCH ×4 (02:31→21:00)
[2021-08-13 04:41] LABS: BASOPHILS % (AUTO) 0 % (0-10); EOSINOPHILS % (AUTO) 0 % (0-10); HEMATOCRIT 34 % (35-52); HEMOGLOBIN 10.6 g/dL (11.5-16.0); LYMPHOCYTES # (AUTO) 0.4 10^3/uL (1.0-4.0); LYMPHOCYTES % (AUTO) 5 % (12-44); MEAN CORPUSCULAR HEMOGLOBIN 30 pg (25-34); MEAN CORPUSCULAR HGB CONC 32 g/dL (32-36); MEAN CORPUSCULAR VOLUME 93 fL (80-99); MEAN PLATELET VOLUME 10.6 fL (9.0-12.2); MONOCYTES # (AUTO) 0.4 10^3/uL (0.0-1.0); MONOCYTES % (AUTO) 5 % (0-12); NEUTROPHILS # (AUTO) 6.9 10^3/uL (1.8-7.8); NEUTROPHILS % (AUTO) 90 % (42-75); PLATELET COUNT 142 10^3/uL (130-400); WHITE BLOOD COUNT 7.7 10^3/uL (4.3-11.0)
[2021-08-13 05:07] LABS: BILIRUBIN,TOTAL 0.5 MG/DL (0.1-1.0); CALCIUM 8.9 MG/DL (8.5-10.1); CREATININE SERUM 0.61 MG/DL (0.60-1.30); MAGNESIUM 1.8 MG/DL (1.6-2.4); POTASSIUM 4.4 MMOL/L (3.6-5.0)
[2021-08-13] MEDS: CLINDAMYCIN 600 MG/50 ML IVPB 50 ML IV SCH ×2 (05:56→13:22)
[2021-08-13] MEDS ORDERED: MAGNESIUM 1 GM/100 ML IVPB 100 ML IV SCH (06:00)
[2021-08-13] MEDS ORDERED: POTASSIUM CL 10MEQ/50ML IVPB 50 ML IV SCH (06:00)
[2021-08-13] MEDS ORDERED: KCL 20 MEQ TAB (K-DUR) PO SCH (06:00)
[2021-08-13] MEDS: SERTRALINE 50 MG (ZOLOFT) TABLET PO SCH (08:03)
[2021-08-13] MEDS: KCL 10 MEQ TAB (MICRO K) PO SCH ×2 (08:03→20:28)
[2021-08-13] MEDS: SERTRALINE 100 MG (ZOLOFT) TAB PO SCH (08:03)
[2021-08-13] MEDS: GABAPENTIN 100 MG (NEURONTIN) CAP PO SCH ×2 (08:03→20:28)
[2021-08-13] MEDS: CYANOCOBALAMIN 1,000 MCG (VITAMIN B-12) TABLET PO SCH (08:03)
[2021-08-13] MEDS: VITAMIN D3 25 MCG (1,000 UNITS) TABLET PO SCH (08:03)
[2021-08-13] MEDS: CALCIUM CARB + VIT D 600 MG (CALCARB + D) TAB PO SCH (08:03)
[2021-08-13] MEDS: lisINopril 10 MG (PRINIVIL) TABLET PO SCH (08:03)
[2021-08-13] MEDS: polyethylene glycoL POWDER 17 GM (MIRALAX) PACK PO SCH ×2 (08:04→20:28)
[2021-08-13] MEDS: IRON POLYSAC 150 MG CAP (NIFEREX) PO SCH ×2 (08:04→20:29)
[2021-08-13] MEDS: cefTRIAXone 1 GM PRE-MIX 50 ML IV SCH (08:04)
[2021-08-13] MEDS: HYDROcodone/APAP 5 MG/325 MG (LORTAB) TAB PO PRN (08:04)
--- NOTE | 2021-08-13 08:07 | Tele-ICU Progress Note ---
Subjective Date Seen by a Provider: Aug 13, 2021 Time Seen by a Provider: 09:51 Subjective/Events-last exam 81 yo F with repair of left femoral neck Fx after fall currently on 4 lpm nasal cannula RR ok CBC, BMP ok Now on Eliquis 2.5 mg BID off heparin Now awake, got up in chair, able to eat, UO 100 mL every 4 hours Pain is controlled with meds Sepsis Event Evaluation Height, Weight, BMI Height: '" Weight: lbs. oz. kg; 23.14 BMI Method: Focused Exam Lactate Level 08/11/21 04:34: Lactic Acid Level 1.69 Exam Exam Patient acknowledged, consented, and participated in this virtual visit which was conducted using real time audio/video Vital Signs Date Time Temp Pulse Resp B/P (MAP) Pulse Ox O2 Delivery O2 Flow Rate FiO2 08/13/21 07:48 High Flow N/C 5.00 08/13/21 06:00 109 15 129/99 100 High Flow N/C 5.00 08/13/21 05:00 99 15 127/77 99 High Flow N/C 5.00 08/13/21 04:00 101 13 120/93 99 High Flow N/C 5.00 08/13/21 04:00 High Flow N/C 5.00 08/13/21 03:00 93 12 124/89 99 High Flow N/C 5.00 08/13/21 02:31 99 High Flow N/C 5.00 08/13/21 02:00 110 19 104/61 99 High Flow N/C 5.00 08/13/21 01:00 105 19 114/77 99 High Flow N/C 5.00 08/13/21 01:00 105 08/13/21 00:37 37.2 High Flow N/C 5.00 08/13/21 00:00 94 14 124/71 99 NIV Bilevel 45.00 08/12/21 23:59 NIV Bilevel 45 08/12/21 23:00 109 16 114/78 99 NIV Bilevel 45.00 08/12/21 22:00 90 16 126/85 93 NIV Bilevel 45.00 08/12/21 21:00 95 17 126/86 98 NIV Bilevel 45.00 08/12/21 20:02 36.7 91 91 08/12/21 20:00 92 14 104/75 99 NIV Bilevel 45.00 08/12/21 20:00 36.3 NIV Bilevel 45.00 08/12/21 20:00 NIV Bilevel 45 08/12/21 19:00 84 17 95/55 99 NIV Bilevel 45.00 08/12/21 19:00 110 08/12/21 18:21 91 19 98 35.00 08/12/21 18:16 98 NIV Bilevel 35 08/12/21 17:30 36.0 93 13 119/83 98 NIV Bilevel 45.00 08/12/21 17:30 NIV Bilevel 45 08/12/21 17:10 NIV Bilevel 10 08/12/21 17:00 118/77 NIV Bilevel 45.00 08/12/21 17:00 36.1 13 122/75 (91) 98 NIV Bilevel 08/12/21 16:50 15 112/81 (91) 97 NIV Bilevel 08/12/21 16:40 16 110/63 (79) 98 NIV Bilevel 08/12/21 16:35 OxyMask 10 08/12/21 16:30 12 112/76 (88) 95 OxyMask 10 08/12/21 16:20 14 81/65 (70) 89 OxyMask 10 08/12/21 16:10 16 92/81 (85) 97 T Piece 10 08/12/21 16:05 T Piece 10 08/12/21 16:05 36.4 16 100/47 (64) 97 T Piece 10 08/12/21 14:00 99 14 94/69 94 High Flow N/C 2.00 08/12/21 14:00 91 13 100/48 91 High Flow N/C 2.00 08/12/21 13:58 74 22 100/48 91 High Flow N/C 2.00 08/12/21 13:56 90 High Flow N/C 2.00 08/12/21 13:45 78 12 95/72 95 High Flow N/C 2.00 08/12/21 13:43 85 13 103/46 95 High Flow N/C 2.00 08/12/21 13:42 89 25 73/58 94 High Flow N/C 2.00 08/12/21 13:40 75 11 High Flow N/C 2.00 08/12/21 13:38 89 21 93 High Flow N/C 2.00 08/12/21 13:20 107 17 79/49 92 High Flow N/C 2.00 08/12/21 13:08 94 18 94 High Flow N/C 2.00 08/12/21 13:00 77 08/12/21 13:00 90 14 79/49 93 High Flow N/C 2.00 08/12/21 12:30 High Flow N/C 2.00 08/12/21 12:00 36.7 08/12/21 12:00 107 16 91/65 95 High Flow N/C 2.00 08/12/21 12:00 High Flow N/C 2.00 08/12/21 11:00 106 13 95/60 97 High Flow N/C 3.00 08/12/21 10:26 95 Nasal Cannula 3.00 08/12/21 10:00 High Flow N/C 3.00 08/12/21 09:05 High Flow N/C 4.00 08/12/21 09:00 73 11 118/74 100 NIV Bilevel 30.00 08/12/21 08:24 36.3 I & O 08/13/21 07:00 Intake Total 255 ml Output Total 825 ml Balance -570 ml Height & Weight Height: '" Weight: lbs. oz. kg; 23.14 BMI Method: General Appearance: No Apparent Distress, WD/WN, Anxious, Chronically ill HEENT: PERRL/EOMI, Moist Mucous Membranes; No Scleral Icterus (L), No Scleral Icterus (R) Neck: Normal Inspection, Non Tender; No Lymphadenopathy (L), No Lymphadenopathy (R) Respiratory: Lungs Clear, Normal Breath Sounds Cardiovascular: Irregularly Irregular (In AFib this morning), Other (chornic a fib with V rate about 78) Capillary Refill: Less Than 3 Seconds Peripheral Pulses: 2+ Radial Pulses (R), 2+ Radial Pulses (L) Gastrointestinal: normal bowel sounds, non tender, soft; No rebound, No tenderness; other (eating, no distension) Extremity: Normal Capillary Refill, Normal Inspection, No Calf Tenderness, No Pedal Edema, Pedal Edema, Other (some edema around left hip) Neurologic/Psychiatric: Alert, Oriented x3, No Motor/Sensory Deficits, Normal 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 - as per cards Acute resp failure - in association with afib RVR - needed Bipap - off now 4 lpm NC UTI with Klebsiella -Cont abx Lines : (Central Line Necessity Reviewed) Mandujano: OG: Nutrition: Analgesia: Anxiety/ delirium xanax VTE Prophylaxis: hep ftt Stress Ulcer Prophylaxis: po Glycemic Control: Critical Care: Critically Ill Patient Time spent with patient (mins): 25 JONATHAN JONES MD Aug 13, 2021 08:07
--- NOTE | 2021-08-13 08:38 | Progress Note - Ortho ---
Progress Note Subjective Date of Exam 08/13/21 Chief Complaint POD #1 Left Hip Bipolar HPI/Events since last exam Pain controlled. Ready for breakfast. No questions regarding procedure. Review of Systems not obtained Allergies: Coded Allergies: Penicillins (Unverified Allergy, Unknown, 11/17/19) Home Meds Reported Medications Furosemide (Furosemide) 20 Mg Tablet, 20 MG PO DAILY PRN for FLUID RETENTION, TAB 08/10/21 Clopidogrel Bisulfate (Clopidogrel) 75 Mg Tablet, 75 MG PO DAILY, TAB 08/10/21 Iron Polysaccharide Complex (Ferrex 150) 150 Mg Capsule, 150 MG PO BID, CAP 08/10/21 Lisinopril (Lisinopril) 10 Mg Tablet, 10 MG PO DAILY, TAB 08/10/21 Diltiazem HCl (Diltiazem 24Hr ER) 180 Mg Cap.er.24h, 180 MG PO DAILY, TAB 08/10/21 Potassium Chloride (Klor-Con 10) 10 Meq Tablet.er, 10 MEQ PO BID, TAB 08/10/21 Fexofenadine HCl (Fexofenadine HCl) 60 Mg Tablet, 60 MG PO DAILY PRN for ALLERGY SYMPTOMS, TAB 08/10/21 Atorvastatin Calcium (Atorvastatin Calcium) 40 Mg Tablet, 40 MG PO HS, TAB 08/10/21 Gabapentin (Gabapentin) 100 Mg Capsule, 100 MG PO BID, CAP 08/10/21 Sertraline HCl (Sertraline HCl) 100 Mg Tablet, 100 MG PO DAILY, TAB TAKES 50MG +100MG TO EQUAL 150MG 08/10/21 Sertraline HCl (Sertraline HCl) 50 Mg Tablet, 50 MG PO DAILY, TAB TAKES 50MG +100MG TO EQUAL 150MG 08/10/21 Calcium Carbonate/Vitamin D3 (Calcium + Vitamin D Tablet) 1 Each Tablet, 1 EACH PO DAILY, TAB 08/10/21 Cyanocobalamin (Vitamin B-12) (Vitamin B-12) 500 Mcg Tablet, 500 MCG PO DAILY, TAB 08/10/21 Carvedilol (Carvedilol) 12.5 Mg Tablet, 12.5 MG PO BID WITH MEALS, TAB 10/26/20 Warfarin Sodium (Warfarin Sodium) 1 Mg Tablet, 1 MG PO MO,TU,ДМИТРИЙ,FRI,SAT@HS, TAB 06/30/20 Warfarin Sodium (Warfarin Sodium) 1 Mg Tablet, 1.5 MG PO SUN,WED@HS, TAB TAKES 1 & (1MG) TAB 06/30/20 Cholecalciferol (Vitamin D3) (Vitamin D3) 50 Mcg Capsule, 50 MCG PO DAILY, CAP 02/24/20 Discontinued Reported Medications Docusate Sodium (Stool Softener) 100 Mg Tablet, 100 MG PO DAILY PRN for CONSTIPATION-1ST LINE, TAB 10/26/20 Tolterodine Tartrate (Tolterodine Tartrate ER) 4 Mg Cap.er.24h, 4 MG PO DAILY, CAP 02/24/20 Calcium Carbonate (Calcium Carbonate) 600 Mg Tablet, 600 MG PO Q48H, TAB 11/18/19 Lisinopril (Lisinopril) 20 Mg Tablet, 20 MG PO DAILY, TAB 11/17/19 Diltiazem HCl (Cartia Xt) 180 Mg Cap.er.24h, 180 MG PO DAILY, CAP 11/17/19 Cyanocobalamin (Vitamin B-12) 100 Mcg Tablet, 1000 MCG PO DAILY, TAB 11/17/19 Clopidogrel Bisulfate (Plavix) 75 Mg Tablet, 75 MG PO DAILY, TAB 11/17/19 Atorvastatin Calcium (Lipitor) 40 Mg Tablet, 40 MG PO DAILY, TAB 11/17/19 Acetaminophen (Acetaminophen) 325 Mg Tablet, 650 MG PO Q6H PRN for PAIN-MILD (1- 4), TAB 11/17/19 Discontinued Scripts Enoxaparin Sodium (Enoxaparin Sodium) 100 Mg/1 Ml Syringe, 100 MG SQ DAILY, #3 SYRINGE 1 Refill Prov:JOSE RAMON PETER MD 10/30/20 Nitroglycerin (Nitroglycerin) 0.4 Mg Tab.subl, 0 MG SL UD PRN for CHEST PAIN (ANGINA), #30 TAB Prov:SIXTO ANAND DO 07/01/20 Objective Exam Left Hip: Dressing C/D/I, +DF of ankle, no s/s of DVT Vital Signs Vital Signs Date Time Temp Pulse Resp B/P (MAP) Pulse Ox O2 Delivery O2 Flow Rate FiO2 08/13/21 08:00 96 14 122/95 91 High Flow N/C 5.00 08/13/21 07:48 High Flow N/C 5.00 08/13/21 07:00 111 08/13/21 07:00 90 14 126/79 95 High Flow N/C 5.00 08/13/21 06:00 109 15 129/99 100 High Flow N/C 5.00 08/13/21 05:00 99 15 127/77 99 High Flow N/C 5.00 08/13/21 04:00 101 13 120/93 99 High Flow N/C 5.00 08/13/21 04:00 High Flow N/C 5.00 08/13/21 03:00 93 12 124/89 99 High Flow N/C 5.00 08/13/21 02:31 99 High Flow N/C 5.00 08/13/21 02:00 110 19 104/61 99 High Flow N/C 5.00 08/13/21 01:00 105 19 114/77 99 High Flow N/C 5.00 08/13/21 01:00 105 08/13/21 00:37 37.2 High Flow N/C 5.00 08/13/21 00:00 94 14 124/71 99 NIV Bilevel 45.00 08/12/21 23:59 NIV Bilevel 45 08/12/21 23:00 109 16 114/78 99 NIV Bilevel 45.00 08/12/21 22:00 90 16 126/85 93 NIV Bilevel 45.00 08/12/21 21:00 95 17 126/86 98 NIV Bilevel 45.00 08/12/21 20:02 36.7 91 91 08/12/21 20:00 92 14 104/75 99 NIV Bilevel 45.00 08/12/21 20:00 36.3 NIV Bilevel 45.00 08/12/21 20:00 NIV Bilevel 45 08/12/21 19:00 84 17 95/55 99 NIV Bilevel 45.00 08/12/21 19:00 110 08/12/21 18:21 91 19 98 35.00 08/12/21 18:16 98 NIV Bilevel 35 08/12/21 17:30 36.0 93 13 119/83 98 NIV Bilevel 45.00 08/12/21 17:30 NIV Bilevel 45 08/12/21 17:10 NIV Bilevel 10 08/12/21 17:00 118/77 NIV Bilevel 45.00 08/12/21 17:00 36.1 13 122/75 (91) 98 NIV Bilevel 08/12/21 16:50 15 112/81 (91) 97 NIV Bilevel 08/12/21 16:40 16 110/63 (79) 98 NIV Bilevel 08/12/21 16:35 OxyMask 10 08/12/21 16:30 12 112/76 (88) 95 OxyMask 10 08/12/21 16:20 14 81/65 (70) 89 OxyMask 10 08/12/21 16:10 16 92/81 (85) 97 T Piece 10 08/12/21 16:05 T Piece 10 08/12/21 16:05 36.4 16 100/47 (64) 97 T Piece 10 08/12/21 14:00 99 14 94/69 94 High Flow N/C 2.00 08/12/21 14:00 91 13 100/48 91 High Flow N/C 2.00 08/12/21 13:58 74 22 100/48 91 High Flow N/C 2.00 08/12/21 13:56 90 High Flow N/C 2.00 08/12/21 13:45 78 12 95/72 95 High Flow N/C 2.00 08/12/21 13:43 85 13 103/46 95 High Flow N/C 2.00 08/12/21 13:42 89 25 73/58 94 High Flow N/C 2.00 08/12/21 13:40 75 11 High Flow N/C 2.00 08/12/21 13:38 89 21 93 High Flow N/C 2.00 08/12/21 13:20 107 17 79/49 92 High Flow N/C 2.00 08/12/21 13:08 94 18 94 High Flow N/C 2.00 08/12/21 13:00 77 08/12/21 13:00 90 14 79/49 93 High Flow N/C 2.00 08/12/21 12:30 High Flow N/C 2.00 08/12/21 12:00 36.7 08/12/21 12:00 107 16 91/65 95 High Flow N/C 2.00 08/12/21 12:00 High Flow N/C 2.00 08/12/21 11:00 106 13 95/60 97 High Flow N/C 3.00 08/12/21 10:26 95 Nasal Cannula 3.00 08/12/21 10:00 High Flow N/C 3.00 08/12/21 09:05 High Flow N/C 4.00 08/12/21 09:00 73 11 118/74 100 NIV Bilevel 30.00 I & O 08/13/21 07:00 Intake Total 255 ml Output Total 825 ml Balance -570 ml Lab Results Laboratory Tests 08/12/21 11:58: Activated Partial Thromboplast Time 68H 08/12/21 17:55: Blood Gas Puncture Site UNK, Blood Gas Patient Temperature 36, Arterial Blood pH 7.40, Arterial Blood Partial Pressure CO2 40, Arterial Blood Partial Pressure O2 133H, Arterial Blood HCO3 25, Arterial Blood Total CO2 26.0, Arterial Blood Oxygen Saturation 99, Arterial Blood Base Excess 0.2, Danny Test UNK, Blood Gas Ventilator Setting NO, Blood Gas Inspired Oxygen 30% 08/12/21 18:18: White Blood Count 11.1H, Red Blood Count 4.01, Hemoglobin 11.8, Hematocrit 37, Mean Corpuscular Volume 93, Mean Corpuscular Hemoglobin 29, Mean Corpuscular Hemoglobin Concent 32, Red Cell Distribution Width 14.6H, Platelet Count 161, Mean Platelet Volume 10.4, Immature Granulocyte % (Auto) 0, Neutrophils (%) (Auto) 88H, Lymphocytes (%) (Auto) 6L, Monocytes (%) (Auto) 4, Eosinophils (%) (Auto) 2, Basophils (%) (Auto) 0, Neutrophils # (Auto) 9.8H, Lymphocytes # (Auto) 0.6L, Monocytes # (Auto) 0.4, Eosinophils # (Auto) 0.2, Basophils # (Auto) 0.0, Immature Granulocyte # (Auto) 0.0, Neutrophils % (Manual) 83, Lymphocytes % (Manual) 11, Monocytes % (Manual) 5, Eosinophils % (Manual) 1, Blood Morphology Comment NORMAL, Sodium Level 138, Potassium Level 4.3, Chloride Level 104, Carbon Dioxide Level 22, Anion Gap 12, Blood Urea Nitrogen 22H, Creatinine 0.68, Estimat Glomerular Filtration Rate 83, BUN/Creatinine Ratio 32, Glucose Level 137H, Calcium Level 9.4 08/13/21 04:33: Activated Partial Thromboplast Time 38H, White Blood Count 7.7, Red Blood Count 3.59L, Hemoglobin 10.6L, Hematocrit 34L, Mean Corpuscular Volume 93, Mean Corpuscular Hemoglobin 30, Mean Corpuscular Hemoglobin Concent 32, Red Cell Distribution Width 14.3, Platelet Count 142, Mean Platelet Volume 10.6, Immature Granulocyte % (Auto) 0, Neutrophils (%) (Auto) 90H, Lymphocytes (%) (Auto) 5L, Monocytes (%) (Auto) 5, Eosinophils (%) (Auto) 0, Basophils (%) (Auto) 0, Neutrophils # (Auto) 6.9, Lymphocytes # (Auto) 0.4L, Monocytes # (Auto) 0.4, Eosinophils # (Auto) 0.0, Basophils # (Auto) 0.0, Immature Granulocyte # (Auto) 0.0, Sodium Level 136, Potassium Level 4.4, Chloride Level 106, Carbon Dioxide Level 19L, Anion Gap 11, Blood Urea Nitrogen 21H, Creatinine 0.61, Estimat Glomerular Filtration Rate 94, BUN/Creatinine Ratio 34, Glucose Level 148H, Calcium Level 8.9, Corrected Calcium 9.7, Phosphorus Level 3.0, Magnesium Level 1.8, Total Bilirubin 0.5, Aspartate Amino Transf (AST/SGOT) 29, Alanine Aminotransferase (ALT/SGPT) 17, Alkaline Phosphatase 78, Total Protein 6.0L, Albumin 3.0L Microbiology 08/10/21 MRSA Screen - Final, Complete MRSA not isolated 08/09/21 Urine Culture - Final, Complete Klebsiella pneumoniae Imaging AP Pelvis dated 08/12/21 was reviewed from PACS and demonstrated prosthetic components to be well-seated in good position without complication Assessment and Plan Assessment s/p L Hip Bipolar Prosthesis Problem List s/p L Hip Bipolar Prosthesis Plan PT/OT; DVT Prophylaxis; Consider swing bed for strengthening after acute stay Final Diagonsis s/p L Hip Bipolar Prosthesis Level of the visit: Level 3 (post op global) Focused Exam Lactate Level 08/11/21 04:34: Lactic Acid Level 1.69 RITA UP MD Aug 13, 2021 08:38
[2021-08-13] MEDS ORDERED: APIXABAN 2.5 MG (ELIQUIS) TABLET PO SCH (09:00)
--- NOTE | 2021-08-13 10:21 | Cardiology Progress Note ---
Subjective Date Seen by Provider: Aug 13, 2021 Time Seen by Provider: 09:58 Subjective/Events-last exam Patient was sitting in a chair, eating breakfast, feeling better. No new complaint. No chest pain. Review of Systems General: No Chills, No Night Sweats, No Fatigue, No Malaise, No Appetite, No Other HEENT: No Head Aches, No Visual Changes, No Eye Pain, No Ear Pain, No Dysphasia, No Sinus Congestion, No Post Nasal Drip, No Sore Throat, No Other Pulmonary: No Dyspnea, No Cough, No Pleuritic Chest Pain, No Other Cardiovascular: No: Chest Pain, Palpitations, Orthopnea, Paroxysmal Noc. Dyspnea, Edema, Lt Headedness, Other Focused Exam Lactate Level 08/11/21 04:34: Lactic Acid Level 1.69 Objective-Cardiology Exam Last Set of Vital Signs Vital Signs 08/12/21 08/13/21 08/13/21 08/13/21 23:59 08:00 09:25 09:31 Temp 36.5 Pulse 96 Resp 14 B/P (MAP) 122/95 Pulse Ox 99 O2 Delivery High Flow N/C O2 Flow Rate 3.00 FiO2 45 I&O Intake and Output 08/13/21 00:00 Intake Total 605 ml Output Total 690 ml Balance -85 ml Intake Oral 50 ml IV Total 555 ml Output Urine Total 690 ml General: Alert, Oriented X3, Cooperative HEENT: Atraumatic, PERRLA Neck: Supple, No JVD, No Thyromegaly Lungs: Normal Air Movement Heart: Normal S1, Normal S2, No Murmurs, Other (Atrial fibrillation) Abdomen: Normal Bowel Sounds, Soft, No Tenderness, No Hepatosplenomegaly, No Masses Extremities: No Clubbing, No Edema, Normal Pulses, No Tenderness/Swelling Skin: No Rashes, No Significant Lesion Neuro: Normal Speech, Normal Tone, Sensation Intact Psych/Mental Status: Mental Status NL, Mood NL Results Lab Laboratory Tests 08/12/21 18:18 08/13/21 04:33 A/P-Cardiology Admission Diagnosis Left hip fracture CAD PAF HTN Assessment/Plan Left hip fracture secondary to nonsyncopal fall, status post hip surgery, recovering well Status post acute respiratory insufficiency, transferred to the intensive care unit, currently feeling better, breathing better. Coronary artery disease, history of multiple interventions. LHC done Jun 28, 2020 revealing total occlusion of the circumflex artery with successful balloon angioplasty and 50 percent residual stenosis, failed attempt to place stent d/t calcification. Severe stenosis in the stent in the LAD, underwent balloon angioplasty with mild to moderate residual stenosis, known to have Synergy 3.5x28 and 3.0x16mm, RCA has multiple stents Synergy 4.0 x38 and 3.5 x 38 that were patent with sm vessel dz distally. Patient had NSTEMI and underwent LHC on 10/29/20 with stenting to the circumflex artery using Abiola 2.5x15mm expanded to 2.6mm with excellent results. Maintained on Plavix and Coumadin, both currently on hold at this time CHF, chronic compensated LV systolic dysfunction, ischemic cardiomyopathy, EF 35-40%. Restarted on JAGDEEP-I and beta blockers during hospitalization earlier this month. Continue to monitor. Paroxysmal atrial fibrillation, went back to atrial fibrillation, borderline tachycardic, maintained on Cardizem CD 180 mg, I will add Toprol XL 25 mg daily and Monitor [id number] score of score of 5, starting on Eliquis 5 mg BID s/p Medtronic dual chamber PPM [place] [address] [facility]. Most recent interrogation done in our office Carotid artery stenosis, hx of right carotid stenting, Hx CVA unknown date Poor memory GERD/PUD MACARIO CARO MD Aug 13, 2021 10:21
--- NOTE | 2021-08-13 10:54 | Physical Therapy Evaluation ---
PT Evaluation-General Medical Diagnosis Admission Date Aug 09, 2021 at 18:53 Medical Diagnosis: left hip fracture/A-fib/Fall Onset Date: Aug 09, 2021 Therapy Diagnosis Therapy Diagnosis: generalized weakness/debility Precautions Precautions/Isolations: Fall Prevention, Standard Precautions Weight Bear Status Right Lower Extremity: Right Full Weight Bearing Left Lower Extremity: Left Weight Bearing/Tolerated Referral Physician: Rohit Reason for Referral: Evaluation/Treatment Medical History Pertinent Medical History: Atrial Fib, CAD, CVA, Heart Failure, HTN, PVD Current History patient tripped over her dog in her home Reviewed History: Yes Social History Home: Single Level Current Living Status: Spouse Prior Prior Level of Function SCALE: Activities may be completed with or without assistive devices. 6-Izqgsazyci-bftxjlu completes the activity by him/herself with no assistance from a helper. 5-Set-up or Clean-up Assistance-helper sets up or cleans up; patient completes activity. [place] assists only prior to or following the activity. 4-Supervision or Touching Assistance-helper provides verbal cues and/or touching/steadying and/or contact guard assistance as patient completes activity. Assistance may be provided throughout the activity or intermittently. 3-Partial/Moderate Assistance-helper does LESS THAN HALF the effort. [place] lifts, holds or supports trunk or limbs, but provides less than half the effort. 2-Substantial/Maximal Assistance-helper does MORE THAN HALF the effort. [place] lifts or holds trunk or limbs and provides more than half the effort. 6-Yfdfjsglh-ycwxvr does ALL the effort. Patient does none of the effort to complete the activity. Or, the assistance of 2 or more helpers is required for the patient to complete the activity. If activity was not attempted, code reason: 7-Patient Refused. 9-Not Applicable-not attempted and the patient did not perform the activity before the current illness, exacerbation or injury. 10-Not Attempted due to Environmental Limitations-(lack of equipment, weather restraints, etc.). 88-Not Attempted due to Medical Conditions or Safety Concerns. Bed Mobility: 6 Transfers (B,C,W/C): 6 Gait: 6 Stairs: 6 Indoor Mobility (Ambulation): Independent Stairs: Independent Prior Devices Use: None PT Evaluation-Current Subjective Patient agrees to PT. Pain Numeric Pain Scale: 10-Worst Possible Pain Location: Left Location Body Site: Hip Pain Description: Acute Objective Patient Orientation: Person, Time, Situation Attachments: Oxygen, Mandujano Catheter, IV ROM/Strength ROM Lower Extremities left hip THR precautions/right LE WFL Strength Lower Extremities right LE 3/5 grossly/left LE 3-/5 grossly Integumentary/Posture Integumentary refer to nursing notes Bladder Incontinence: Mandujano Cath Posture slight kyphosis Neuromuscular (Tone, Coordination, Reflexes) grossly intact Sensory Vision: Functional Hearing: Impaired Transfers Roll Left to Right (QC): 1 Sit to Lying (QC): 1 Lying to Sitting/Side of Bed(Q: 1 Sit to Stand (QC): 1 Chair/Ink-jl-Flakx Xfer(QC): 1 Gait Does the Patient Walk?: No and Walking Goal IS indicated Balance Sitting Static: Fair Sitting Dynamic: Fair Standing Static: Poor Standing Dynamic: Poor Assessment/Needs 81 y.o. female, will benefit from skilled PT to address functional strength and mobility to improve current LOF. PT will begin to see patient 11/wk to address goals, however, if patient is unable to tolerate activity will decrease to 6/wk. Patient currently tolerates minimal activity. From a PT standpoint, patient may benefit from extended care facility due to low activity tolerance and pain control. 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: Fair PT Prison Goals Rib Stiffener And Heel Dipper Goals PT Rib Stiffener And Heel Dipper Goals Time Frame: Sep 18, 2021 Roll Left & Right (QC): 4 Sit to Lying (QC): 4 Lying-Sitting on Side/Bed(QC): 4 Sit to Stand (QC): 4 Chair/Bzc-ra-Fiesu Xfer(QC): 4 Toilet Transfer (QC): 4 Walk 10 feet (QC): 4 Walk 50ft with 2 Turns (QC): 4 Walk 150 ft (QC): 4 PT Plan Problem List Problem List: Activity Tolerance, Functional Strength, Safety, Balance, Gait, Transfer, Bed Mobility Treatment/Plan Treatment Plan: Continue Plan of Care Treatment Plan: Bed Mobility, Education, Functional Activity Tawanna, Functional Strength, Gait, Safety Treatment Duration: Sep 18, 2021 Frequency: 11 times per week Estimated Hrs Per Day: .5 hour per day Time/GCodes Time In: 750 Time Out: 805 Total Billed Treatment Time: 15 Total Billed Treatment 1 visit EVMod 15 min LESLEY MURRAY PT Aug 13, 2021 10:54
[2021-08-13 12:10] VITALS: BP 101/64
--- NOTE | 2021-08-13 14:18 | Anesthesia-General Post-Op ---
General Patient Condition Mental Status/LOC: Same as Preop Cardiovascular: Satisfactory Nausea/Vomiting: Absent Respiratory: Satisfactory Pain: Controlled Complications: Absent Post Op Complications Complications None Follow Up Care/Instructions Patient Instructions None needed. Anesthesia/Patient Condition Patient Condition Patient is doing well, no complaints, stable vital signs, no apparent adverse anesthesia problems. No complications reported per nursing. IVETT EPSTEIN CRNA Aug 13, 2021 14:18
--- NOTE | 2021-08-13 14:22 | Progress Note - Hospitalist ---
BRENDA MENDOZA 08/13/21 1422: Subjective HPI/CC On Admission Date Seen by Provider: Aug 13, 2021 Time Seen by Provider: 07:49 CC: Left Hip Fracture Subjective/Events-last exam Ms. Nolasco is 1 day s/p L hip fx repair. She does not report any pain this morning except when she is moved. She says she felt like her surgery went well and had no complaints. She is breathing okay with oxygen via NC. She was moved from ICU down to 4th floor and will begin working with PT. She is excited to go home when she is able. Review of Systems General: Chills; No Fatigue HEENT: No Head Aches Pulmonary: No Dyspnea; Cough Cardiovascular: No: Chest Pain, Palpitations Gastrointestinal: No: Nausea, Vomiting, Abdominal Pain Musculoskeletal: back pain, leg pain (Only upon movement, not tender at rest) Neurological: No: Weakness, Confusion Focused Exam Lactate Level 08/11/21 04:34: Lactic Acid Level 1.69 Capillary Refill: Less Than 3 Seconds Peripheral Pulses: 2+ Radial Pulses (R), 2+ Radial Pulses (L) Objective Exam Vital Signs Vital Signs Date Time Temp Pulse Resp B/P (MAP) Pulse Ox O2 Delivery O2 Flow Rate FiO2 08/13/21 12:10 36.1 82 20 101/64 (76) 100 08/13/21 10:00 High Flow N/C 5.00 08/12/21 23:59 45 Capillary Refill : Less Than 3 SecondsLess Than 3 Seconds General Appearance: No Apparent Distress, WD/WN HEENT: PERRL/EOMI, Moist Mucous Membranes Neck: Normal Inspection, Non Tender Respiratory: Chest Non Tender, Lungs Clear, Normal Breath Sounds, No Accessory Muscle Use, No Respiratory Distress Cardiovascular: Regular Rate, Rhythm, No Edema, No Murmur, Normal Peripheral Pulses Gastrointestinal: Normal Bowel Sounds, Non Tender, Soft Extremity: Normal Capillary Refill, Normal Inspection, Non Tender, No Calf Tenderness, No Pedal Edema Neurologic/Psychiatric: Alert, Oriented x3, No Motor/Sensory Deficits, Normal Mood/Affect, title 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 Assessment/Plan Assessment and Plan Assess & Plan/Chief Complaint Assessment Left femur fx - Repaired yesterday with Dr. Bee AFib - Given metoprolol and diltiazem - No acute changes h/o CAD h/o coronary stenting - Takes Plavix and Warfarin Plan Hold Plavix and Warfarin Rehab after surgery as tolerated Discharge when possible Pain control as needed TAMARA ANAND DO 08/14/21 0631: Subjective Subjective/Events-last exam Patient sitting in chair Slow recovery O2 maintained Review of Systems Musculoskeletal: leg pain (Only upon movement, not tender at rest) Objective Exam General Appearance: No Apparent Distress, WD/WN, Chronically ill Respiratory: Lungs Clear, Normal Breath Sounds, Decreased Breath Sounds Cardiovascular: Regular Rate, Rhythm Assessment/Plan Assessment and Plan Assess & Plan/Chief Complaint Pain control PT OT Supervisory-Addendum Brief Verification & Attestation Participated in pt care: history, MDM, physical Personally performed: exam, history, MDM, supervision of care Care discussed with: Medical Student Procedures: n/a Results interpretation: Verified all documentation Verification and Attestation of Medical Student E/M Service A medical student performed and documented this service in my presence. I reviewed and verified all information documented by the medical student and made modifications to such information, when appropriate. I personally performed the physical exam and medical decision making. Tamara Anand, Aug 14, 2021,06:30 BRENDA MENDOZA Aug 13, 2021 14:22 TAMARA ANAND DO Aug 14, 2021 06:31
--- NOTE | 2021-08-13 14:23 | Physical Therapy Daily Note ---
PT Daily Note-Current Mental Status Patient Orientation: Confused Attachments: Mandujano Catheter, IV Transfers SCALE: Activities may be completed with or without assistive devices. 2-Rcliehzdml-pefwzlh completes the activity by him/herself with no assistance from a helper. 5-Set-up or Clean-up Assistance-helper sets up or cleans up; patient completes activity. [place] assists only prior to or following the activity. 4-Supervision or Touching Assistance-helper provides verbal cues and/or touching/steadying and/or contact guard assistance as patient completes activity. Assistance may be provided throughout the activity or intermittently. 3-Partial/Moderate Assistance-helper does LESS THAN HALF the effort. [place] lifts, holds or supports trunk or limbs, but provides less than half the effort. 2-Substantial/Maximal Assistance-helper does MORE THAN HALF the effort. [place] lifts or holds trunk or limbs and provides more than half the effort. 9-Wravxsmul-mpmfvl does ALL the effort. Patient does none of the effort to complete the activity. Or, the assistance of 2 or more helpers is required for the patient to complete the activity. If activity was not attempted, code reason: 7-Patient Refused. 9-Not Applicable-not attempted and the patient did not perform the activity before the current illness, exacerbation or injury. 10-Not Attempted due to Environmental Limitations-(lack of equipment, weather restraints, etc.). 88-Not Attempted due to Medical Conditions or Safety Concerns. Sit to Stand (QC): 2 patient stood in FWW x 5 min max assist to maintain Weight Bearing Right Lower Extremity: Right Full Weight Bearing Left Lower Extremity: Left Weight Bearing/Tolerated Exercises Seated Therapy Exercises: Ankle pumps, Long arc quads Seated Reps: 12 Assessment Patient requires time and redirection to perform tasks safely. Patient tolerates minimal activity. PT Halfway Goals Family [employer] Consumer [employer] Teacher Goals PT Family And Consumer Sciences Teacher Goals Time Frame: Sep 18, 2021 Roll Left & Right (QC): 4 Sit to Lying (QC): 4 Lying-Sitting on Side/Bed(QC): 4 Sit to Stand (QC): 4 Chair/Eox-kd-Ihilu Xfer(QC): 4 Toilet Transfer (QC): 4 Walk 10 feet (QC): 4 Walk 50ft with 2 Turns (QC): 4 Walk 150 ft (QC): 4 PT Plan Treatment/Plan Treatment Plan: Continue Plan of Care Treatment Plan: Bed Mobility, Education, Functional Activity Tawanna, Functional Strength, Gait, Safety Treatment Duration: Sep 18, 2021 Frequency: 11 times per week Estimated Hrs Per Day: .5 hour per day Time/GCodes Time In: 1350 Time Out: 1359 Total Billed Treatment Time: 9 Total Billed Treatment 1 visit EX 9 min LESLEY MURRAY PT Aug 13, 2021 14:23
--- NOTE | 2021-08-13 15:35 | Occupational Therapy Eval ---
OT Evaluation-General/PLF Medical Diagnosis Admission Date Aug 09, 2021 at 18:53 Medical Diagnosis: left hip fracture/A-fib/Fall Onset Date: Aug 09, 2021 Therapy Diagnosis Therapy Diagnosis: decreased ADL status Precautions Precautions/Isolations: Fall Prevention, Standard Precautions Comments hip precautions Referral Physician: Rohit Referral Reason: Evaluation/Treatment Medical History Pertinent Medical History: Atrial Fib, CAD, CVA, Heart Failure, HTN, PVD Additional Medical History afib, CAD, CVA, pacemaker placement, coronary stenting Current History tripped on dog and fell, fracturing L femur. s/p L hip bipolar Social History Home: Single Level Current Living Status: Spouse ADL-Prior Level of Function SCALE: Activities may be completed with or without assistive devices. 8-Vlbtlkycaj-hlaigql completes the activity by him/herself with no assistance from a helper. 5-Set-up or Clean-up Assistance-helper sets up or cleans up; patient completes activity. [place] assists only prior to or following the activity. 4-Supervision or Touching Assistance-helper provides verbal cues and/or touching/steadying and/or contact guard assistance as patient completes activity. Assistance may be provided throughout the activity or intermittently. 3-Partial/Moderate Assistance-helper does LESS THAN HALF the effort. [place] lifts, holds or supports trunk or limbs, but provides less than half the effort. 2-Substantial/Maximal Assistance-helper does MORE THAN HALF the effort. [place] lifts or holds trunk or limbs and provides more than half the effort. 8-Klzzegqvf-kzxgdx does ALL the effort. Patient does none of the effort to complete the activity. Or, the assistance of 2 or more helpers is required for the patient to complete the activity. If activity was not attempted, code reason: 7-Patient Refused. 9-Not Applicable-not attempted and the patient did not perform the activity before the current illness, exacerbation or injury. 10-Not Attempted due to Environmental Limitations-(lack of equipment, weather restraints, etc.). 88-Not Attempted due to Medical Conditions or Safety Concerns. ADL PLOF Comments Pt reports IND with ADLs and functional mobility at PLOF, no AD/AE Self Care: Independent Functional Cognition: Independent DME/Equipment: Bath Chair, Grab Bars, Shower OT Current Status Subjective Pt in recliner, agreeable to OT Tx. Mental Status/Objective Patient Orientation: Person, Place, Situation Attachments: Mandujano Catheter, IV, Oxygen Current Upper Extremity ROM decreased, RUE shoulder flexion to approx 40 degrees, LUE to approx 100 degrees Upper Extremity Coordination WFL Upper Extremity Strength grossly 3/5 ADL-Treatment Shower/Bathe Self (QC): 1 (per clinical judgment. 2 person assistance with task.) Lower Body Dressing (QC): 1 (Per clinical judgment, assist all parts and 2 person assistance.) On/Off Footwear (QC): 1 (per clinical judgment.) Toileting Hygiene (QC): 1 (catheter) Other Treatments Pt seated in recliner, sit to stand from recliner with max A. Pt stood at FWW for 5 mins, max A to maintain stand. Pt required time and redirection to perform tasks safely, and for UE placement with sit <-> stand transfers. Post tx, pt up in recliner, call light in reach and all needs met. Education OT Patient Education: Correct positioning, Energy conservation, Modified ADL techniques, Progress toward Goal/Update tx plan, Purpose of tx/functional activities, Rehab process, Safety issues, Transfer techniques Teaching Methods: Discussion Response to Teaching: Verbalize Understanding OT Microbiology Technician Goals Penitentiary Goals Time Frame: Aug 27, 2021 Eating (QC): 6 Oral Hygiene (QC): 6 Toileting Hygiene (QC): 4 Shower/Bathe Self (QC): 4 Upper Body Dressing (QC): 5 Lower Body Dressing (QC): 4 On/Off Footwear (QC): 3 Additional Goals: 1-Demonstrate ADL Tasks, 2-Verbalize Understanding, 3- ImproveStrength/Tawanna 1=Demonstrate adherence to instructed precautions during ADL tasks. 2=Patient will verbalize/demonstrate understanding of assistive devices/modifications for ADL. 3=Patient will improve strength/tolerance for activity to enable patient to perform ADL's. OT Education/Plan Problem List/Assessment Assessment: Decreased Activ Tolerance, Decreased Safety Aware, Decreased UE Strength, Dependent Transfers, Impaired Funct Balance, Impaired I ADL's, Impaired Self-Care Skills Pt would benefit from skilled OT services in order to increase BUE strength and activity tolerance, increase independence and safety with ADLs, and education on AE for LE dressing due to hip precautions. Discharge Recommendations Plan/Recommendations: Continue POC Treatment Plan/Plan of Care Patient would benefit from OT for education, treatment and training to promote independence in ADL's, mobility, safety and/or upper extremity function for ADL's. Plan of Care: ADL Retraining, Functional Mobility, UE Funct Exercise/Act Treatment Duration: Aug 27, 2021 Frequency: 3 times per week (3-5 times a week) Estimated Hrs Per Day: .25 hour per day 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: Fair Time/GCodes Start Time: 13:51 Stop Time: 14:05 Total Time Billed (hr/min): 14 Billed Treatment Time 1, JUSTIN RAMÍREZ OT Aug 13, 2021 15:35
[2021-08-13 16:16] VITALS: BP 100/64
[2021-08-13] MEDS: APIXABAN 5 MG (ELIQUIS) TABLET PO SCH (20:28)
[2021-08-13 20:35] VITALS: BP 105/65
[2021-08-14] VITALS: BP 113/64
[2021-08-14] MEDS: RT-ALBUTEROL SULF 2.5 MG/3 ML PRE-MIX VIAL INH SCH ×4 (02:33→23:51)
[2021-08-14] MEDS: HYDROcodone/APAP 5 MG/325 MG (LORTAB) TAB PO PRN ×2 (06:02→21:38)
[2021-08-14 06:51] LABS: BASOPHILS % (AUTO) 0 % (0-10); EOSINOPHILS # (AUTO) 0.1 10^3/uL (0.0-0.3); EOSINOPHILS % (AUTO) 1 % (0-10); HEMATOCRIT 30 % (35-52); HEMOGLOBIN 9.8 g/dL (11.5-16.0); LYMPHOCYTES # (AUTO) 1.1 10^3/uL (1.0-4.0); LYMPHOCYTES % (AUTO) 11 % (12-44); MEAN CORPUSCULAR HEMOGLOBIN 30 pg (25-34); MEAN CORPUSCULAR HGB CONC 32 g/dL (32-36); MEAN CORPUSCULAR VOLUME 92 fL (80-99); MEAN PLATELET VOLUME 10.5 fL (9.0-12.2); MONOCYTES # (AUTO) 1.1 10^3/uL (0.0-1.0); MONOCYTES % (AUTO) 11 % (0-12); NEUTROPHILS # (AUTO) 7.9 10^3/uL (1.8-7.8); NEUTROPHILS % (AUTO) 77 % (42-75); PLATELET COUNT 176 10^3/uL (130-400); WHITE BLOOD COUNT 10.2 10^3/uL (4.3-11.0)
[2021-08-14 07:01] LABS: CALCIUM 8.7 MG/DL (8.5-10.1)
[2021-08-14 07:02] LABS: TOTAL PROTEIN 6.1 GM/DL (6.4-8.2)
[2021-08-14 07:04] LABS: BILIRUBIN,TOTAL 0.4 MG/DL (0.1-1.0)
[2021-08-14 07:06] LABS: CREATININE SERUM 0.62 MG/DL (0.60-1.30)
[2021-08-14 07:40] VITALS: BP 113/64
[2021-08-14] MEDS: polyethylene glycoL POWDER 17 GM (MIRALAX) PACK PO SCH ×2 (08:07→21:50)
[2021-08-14] MEDS: VITAMIN D3 25 MCG (1,000 UNITS) TABLET PO SCH (08:07)
[2021-08-14] MEDS: CALCIUM CARB + VIT D 600 MG (CALCARB + D) TAB PO SCH (08:08)
[2021-08-14] MEDS: KCL 10 MEQ TAB (MICRO K) PO SCH ×2 (08:08→21:38)
[2021-08-14] MEDS: APIXABAN 5 MG (ELIQUIS) TABLET PO SCH ×2 (08:08→21:38)
[2021-08-14] MEDS: lisINopril 10 MG (PRINIVIL) TABLET PO SCH (08:08)
[2021-08-14] MEDS: SERTRALINE 100 MG (ZOLOFT) TAB PO SCH (08:09)
[2021-08-14] MEDS: cefTRIAXone 1 GM PRE-MIX 50 ML IV SCH (08:09)
[2021-08-14] MEDS: GABAPENTIN 100 MG (NEURONTIN) CAP PO SCH ×2 (08:09→21:38)
[2021-08-14] MEDS: IRON POLYSAC 150 MG CAP (NIFEREX) PO SCH ×2 (08:09→21:38)
[2021-08-14] MEDS: SERTRALINE 50 MG (ZOLOFT) TABLET PO SCH (08:09)
[2021-08-14] MEDS: CYANOCOBALAMIN 1,000 MCG (VITAMIN B-12) TABLET PO SCH (08:14)
--- NOTE | 2021-08-14 11:02 | Physical Therapy Daily Note ---
PT Daily Note-Current Subjective Pt in bed, agreeable. No pain rating provided. Mental Status Patient Orientation: Person, Place, Time, Situation Attachments: Oxygen, Mandujano Catheter, IV Transfers SCALE: Activities may be completed with or without assistive devices. 5-Ozuzukzmof-vkstzyw completes the activity by him/herself with no assistance from a helper. 5-Set-up or Clean-up Assistance-helper sets up or cleans up; patient completes activity. [place] assists only prior to or following the activity. 4-Supervision or Touching Assistance-helper provides verbal cues and/or touching/steadying and/or contact guard assistance as patient completes activity. Assistance may be provided throughout the activity or intermittently. 3-Partial/Moderate Assistance-helper does LESS THAN HALF the effort. [place] lifts, holds or supports trunk or limbs, but provides less than half the effort. 2-Substantial/Maximal Assistance-helper does MORE THAN HALF the effort. [place] lifts or holds trunk or limbs and provides more than half the effort. 3-Eupwijvgl-hojcxl does ALL the effort. Patient does none of the effort to complete the activity. Or, the assistance of 2 or more helpers is required for the patient to complete the activity. If activity was not attempted, code reason: 7-Patient Refused. 9-Not Applicable-not attempted and the patient did not perform the activity before the current illness, exacerbation or injury. 10-Not Attempted due to Environmental Limitations-(lack of equipment, weather restraints, etc.). 88-Not Attempted due to Medical Conditions or Safety Concerns. Roll Left & Right (QC): 1 Sit to Lying (QC): 2 Lying to Sitting/Side of Bed(Q: 1 Sit to Stand (QC): 1 Supine->sit: max A x 1, Sit->supine: max A x 2 Sit<->stand: mod A x 2; Pt stood for grossly 1' with flexed posture, retropulsive, mild correction with VCS. Unable to take step to HOB this date. Weight Bearing Right Lower Extremity: Right Full Weight Bearing Left Lower Extremity: Left Weight Bearing/Tolerated Gait Training Does the Patient Walk?: No and Walking Goal IS indicated Treatments Transfer training. In bed with all needs met post session, pillow between knees. Assessment Current Status: Fair Progress Pt tolerated fair/well. Improved tolerance for functional mobility. PT Transportation Planner Goals Transportation Planner Goals PT Custodial Goals Time Frame: Sep 18, 2021 Roll Left & Right (QC): 4 Sit to Lying (QC): 4 Lying-Sitting on Side/Bed(QC): 4 Sit to Stand (QC): 4 Chair/Sts-sw-Onbva Xfer(QC): 4 Toilet Transfer (QC): 4 Walk 10 feet (QC): 4 Walk 50ft with 2 Turns (QC): 4 Walk 150 ft (QC): 4 PT Plan Problem List Problem List: Activity Tolerance, Functional Strength, Safety, Balance, Gait, Transfer, Bed Mobility, ROM Treatment/Plan Treatment Plan: Continue Plan of Care Treatment Plan: Bed Mobility, Education, Functional Activity Tawanna, Functional Strength, Gait, Safety, Therapeutic Exercise, Transfers Treatment Duration: Sep 18, 2021 Frequency: 11 times per week Estimated Hrs Per Day: .5 hour per day Patient and/or Family Agrees t: Yes Safety Risks/Education Patient Education: Transfer Techniques Teaching Recipient: Patient Teaching Methods: Demonstration, Discussion Response to Teaching: Verbalize Understanding, Reinforcement Needed Time/GCodes Time In: 925 Time Out: 941 Total Billed Treatment Time: 16 Total Billed Treatment 1, FA x 16 ANTONIO GAN DPVy Aug 14, 2021 11:02
--- NOTE | 2021-08-14 11:14 | PM&R Progress Note ---
Subjective HPI/CC On Admission Date Seen by Provider: Aug 14, 2021 CC: Left Hip Fracture Objective Exam Vital Signs Vital Signs Date Time Temp Pulse Resp B/P (MAP) Pulse Ox O2 Delivery O2 Flow Rate FiO2 08/14/21 07:40 37.3 80 16 113/64 (80) 99 High Flow N/C 2.00 08/12/21 23:59 45 Capillary Refill : Less Than 3 SecondsLess Than 3 Seconds General Appearance: No Apparent Distress, WD/WN, Chronically ill HEENT: PERRL/EOMI, Moist Mucous Membranes Neck: Normal Inspection, Non Tender Respiratory: Lungs Clear, Normal Breath Sounds, Decreased Breath Sounds Cardiovascular: Regular Rate, Rhythm Gastrointestinal: Normal Bowel Sounds, Non Tender, Soft Back: No CVA Tenderness Extremity: Normal Capillary Refill, Normal Inspection, Non Tender, No Calf Tenderness, No Pedal Edema Neurologic/Psychiatric: Alert, Oriented x3, No Motor/Sensory Deficits, Normal Mood/Affect, utility tech II-XII Norm as Tested Skin: Normal Color, Warm/Dry Lymphatic: No Adenopathy (Head and neck) Results/Procedures Lab Laboratory Tests 08/14/21 06:30 Patient resulted labs reviewed. FIM Transfers Therapy Code Descriptions/Definitions Functional [place] Measure: 0=Not Assessed/NA 4=Minimal Assistance 1=Total Assistance 5=Supervision or Setup 2=Maximal Assistance 6=Modified [place] 3=Moderate Assistance 7=Complete IndependenceSCALE: Activities may be completed with or without assistive devices. 5-Vtauobejhg-jliwkdd completes the activity by him/herself with no assistance from a helper. 5-Set-up or Clean-up Assistance-helper sets up or cleans up; patient completes activity. [place] assists only prior to or following the activity. 4-Supervision or Touching Assistance-helper provides verbal cues and/or touching/steadying and/or contact guard assistance as patient completes act ivity. Assistance may be provided throughout the activity or intermittently. 3-Partial/Moderate Assistance-helper does LESS THAN HALF the effort. [place] lifts, holds or supports trunk or limbs, but provides less than half the effort. 2-Substantial/Maximal Assistance-helper does MORE THAN HALF the effort. [place] lifts or holds trunk or limbs and provides more than half the effort. 2-Lfdrogkjf-hwurtz does ALL the effort. Patient does none of the effort to complete the activity. Or, the assistance of 2 or more helpers is required for the patient to complete the activity. If activity was not attempted, code reason: 7-Patient Refused. 9-Not Applicable-not attempted and the patient did not perform the activity before the current illness, exacerbation or injury. 10-Not Attempted due to Environmental Limitations-(lack of equipment, weather restraints, etc.). 88-Not Attempted due to Medical Conditions or Safety Concerns. Roll Left to Right (QC): 1 Sit to Lying (QC): 2 Sit to Stand (QC): 1 Chair/[place]-od-Quueu Xfer(QC): 1 Gait Training Does the Patient Walk?: No and Walking Goal IS indicated ADL-Treatment Shower/Bathe Self (QC): 1 (per clinical judgment. 2 person assistance with task.) Lower Body Dressing (QC): 1 (Per clinical judgment, assist all parts and 2 person assistance.) On/Off Footwear (QC): 1 (per clinical judgment.) Toileting Hygiene (QC): 1 (catheter) Assessment/Plan Assessment and Plan Assess & Plan/Chief Complaint Pain control PT OT Critical Care Critical Care: Critically Ill Patient SIXTO ANAND DO Aug 14, 2021 11:14
--- NOTE | 2021-08-14 11:15 | Progress Note - Hospitalist ---
Subjective HPI/CC On Admission Date Seen by Provider: Aug 14, 2021 Time Seen by Provider: 11:30 CC: Left Hip Fracture Subjective/Events-last exam Patient doing well Sleeping Pain is controlled Oxygen maintained Review of Systems General: Fatigue, Malaise Objective Exam Vital Signs Vital Signs Date Time Temp Pulse Resp B/P (MAP) Pulse Ox O2 Delivery O2 Flow Rate FiO2 08/15/21 00:00 36.2 80 20 120/74 (89) 97 High Flow N/C 2.00 08/12/21 23:59 45 Capillary Refill : Less Than 3 SecondsLess Than 3 Seconds General Appearance: No Apparent Distress, WD/WN, Chronically ill Respiratory: Lungs Clear, Normal Breath Sounds, Decreased Breath Sounds Cardiovascular: Regular Rate, Rhythm Results/Procedures Lab Patient resulted labs reviewed. Assessment/Plan Assessment and Plan Assess & Plan/Chief Complaint Assessment Left femur fx - Repaired yesterday with Dr. Bee AFib - Given metoprolol and diltiazem - No acute changes h/o CAD h/o coronary stenting - Takes Plavix and Warfarin Plan Hold Plavix and Warfarin Rehab after surgery as tolerated Discharge when possible Pain control as needed 08/14/2021: Monitor hemoglobin Critical Care Critically Ill Patient SIXTO ANAND DO Aug 14, 2021 11:15
[2021-08-14 15:41] VITALS: BP 108/65
--- NOTE | 2021-08-14 16:03 | Cardiology Progress Note ---
Progress Note-Cardiology Events since last exam Date Seen by Provider: Aug 14, 2021 Time Seen by Provider: 15:54 Events since last exam We are following her due to chronic heart failure, coronary artery disease and paroxysmal atrial fibrillation. She was sitting up in a chair on the medical unit. Her was at the bedside along with another family member. They tell me she has been confused today. She thinks she is in [place]. She denies chest discomfort. She states that she is short of breath at rest. She denies palpitations, syncope, or ankle edema. However, due to her confusion, her answers may not be reliable. Certain portions of this document may have been dictated utilizing voice recognition technology. Inherent to this technology, typographical and grammatical errors may exist. As much as I am diligent to identify and correct these mistakes, some errors may remain in the document. Vitals Last set of Vitals Signs Vital Signs 08/12/21 08/14/21 23:59 15:41 Temp 36.6 Pulse 65 Resp 16 B/P (MAP) 108/65 (79) Pulse Ox 97 O2 Delivery High Flow N/C O2 Flow Rate 2.00 FiO2 45 Labs Labs Laboratory Tests 08/14/21 06:30 Exam Vital Signs Vital Signs Date Time Temp Pulse Resp B/P (MAP) Pulse Ox O2 Delivery O2 Flow Rate FiO2 08/14/21 15:41 36.6 65 16 108/65 (79) 97 High Flow N/C 2.00 08/12/21 23:59 45 Physical Exam General: Alert. No acute distress. Eye: No xanthelasma. HENT: Normocephalic. Neck: Jugular venous pressure does not appear elevated. Respiratory: Lungs are clear to auscultation. Respirations are non-labored. Breath sounds are equal. Symmetrical chest wall expansion. Cardiovascular: Normal rate. Regular rhythm. No murmur. No gallop. No edema. Gastrointestinal: Soft. Normal bowel sounds. Skin: Warm. Dry. Neurologic: Alert and oriented to person only. Cranial nerves 3-11 grossly intact. Psychiatric: Cooperative. Appropriate mood & affect. Labs Laboratory Tests Test 08/14/21 06:30 Range/Units White Blood Count 10.2 4.3-11.0 10^3/uL Red Blood Count 3.32 L 3.80-5.11 10^6/uL Hemoglobin 9.8 L 11.5-16.0 g/dL Hematocrit 30 L 35-52 % Mean Corpuscular Volume 92 80-99 fL Mean Corpuscular Hemoglobin 30 25-34 pg Mean Corpuscular Hemoglobin Concent 32 32-36 g/dL Red Cell Distribution Width 14.4 10.0-14.5 % Platelet Count 176 130-400 10^3/uL Mean Platelet Volume 10.5 9.0-12.2 fL Immature Granulocyte % (Auto) 1 % Neutrophils (%) (Auto) 77 H 42-75 % Lymphocytes (%) (Auto) 11 L 12-44 % Monocytes (%) (Auto) 11 0-12 % Eosinophils (%) (Auto) 1 0-10 % Basophils (%) (Auto) 0 0-10 % Neutrophils # (Auto) 7.9 H 1.8-7.8 10^3/uL Lymphocytes # (Auto) 1.1 1.0-4.0 10^3/uL Monocytes # (Auto) 1.1 H 0.0-1.0 10^3/uL Eosinophils # (Auto) 0.1 0.0-0.3 10^3/uL Basophils # (Auto) 0.0 0.0-0.1 10^3/uL Immature Granulocyte # (Auto) 0.1 0.0-0.1 10^3/uL Sodium Level 140 135-145 MMOL/L Potassium Level 4.0 3.6-5.0 MMOL/L Chloride Level 107 98-107 MMOL/L Carbon Dioxide Level 23 21-32 MMOL/L Anion Gap 10 5-14 MMOL/L Blood Urea Nitrogen 21 H 7-18 MG/DL Creatinine 0.62 0.60-1.30 MG/DL Estimat Glomerular Filtration Rate 92 BUN/Creatinine Ratio 34 Glucose Level 118 H 70-105 MG/DL Calcium Level 8.7 8.5-10.1 MG/DL Corrected Calcium 9.5 8.5-10.1 MG/DL Total Bilirubin 0.4 0.1-1.0 MG/DL Aspartate Amino Transf (AST/SGOT) 30 5-34 U/L Alanine Aminotransferase (ALT/SGPT) 21 0-55 U/L Alkaline Phosphatase 74 40-136 U/L Total Protein 6.1 L 6.4-8.2 GM/DL Albumin 3.0 L 3.2-4.5 GM/DL Diagnosis/Problems Diagnosis/Problems (1) Chronic systolic heart failure Assessment & Plan: Her most recent chest x-ray from 08/11 did not show significant pulmonary edema. Her lungs are clear today. She is on appropriate guideline directed medical therapy. For unclear reasons, she was started on metoprolol succinate but had already been taking carvedilol at home. I will stop the metoprolol succinate. We will continue carvedilol and lisinopril. In light of her left ventricular systolic dysfunction, one might consider stopping diltiazem and increasing the doses of carvedilol and lisinopril. (2) Coronary artery disease without angina pectoris Assessment & Plan: We will Saad is not having any angina at this point in time. Tinea beta-deisy and statin medication. She had not been taking aspirin at home because she was on warfarin for atrial fibrillation. (3) Paroxysmal atrial fibrillation Assessment & Plan: Continue beta-deisy and diltiazem for rate control. However, as above, in light of her left ventricular systolic dysfunction, one might consider stopping diltiazem and increasing the dose of carvedilol. I will leave this up to the discretion of her regular event organizer. We need to start thinking about getting her back on warfarin for stroke prophylaxis. This was held due to her hip fracture. (4) Cardiomyopathy Assessment & Plan: Her most recent echocardiogram showed moderate left ventricular systolic dysfunction. I have adjusted her medication as above since she was taking 2 beta-blockers for unclear reasons. At home she was only on carvedilol. The lisinopril will be continued. As above, we may want to consider other adjustments to her medication for the cardiomyopathy but I will leave this up to her regular event organizer when he returns Monday. (5) Pulmonary hypertension Assessment & Plan: Most likely due to her chronic heart failure. She uses oxygen as needed at home. She may benefit from oxygen 24 hours/day. However, she does not like wearing her oxygen at home. (6) Sick sinus syndrome Assessment & Plan: She has a permanent pacemaker in place that appears to be functioning normally. (7) Primary hypertension Assessment & Plan: Blood pressures have been reasonably controlled with the present combination of medication. As above, I will streamline her medication by getting her back on to just 1 beta-deisy. (8) Mixed hyperlipidemia Assessment & Plan: Continue atorvastatin. I have added a lipid panel to blood work obtained this morning. RANJAN LAKHANI JR, MD Aug 14, 2021 16:03
[2021-08-15] VITALS: BP 120/74
[2021-08-15] MEDS: RT-ALBUTEROL SULF 2.5 MG/3 ML PRE-MIX VIAL INH SCH ×4 (03:51→21:22)
[2021-08-15 07:25] LABS: BASOPHILS % (AUTO) 0 % (0-10); EOSINOPHILS # (AUTO) 0.2 10^3/uL (0.0-0.3); EOSINOPHILS % (AUTO) 2 % (0-10); HEMATOCRIT 33 % (35-52); HEMOGLOBIN 10.7 g/dL (11.5-16.0); LYMPHOCYTES # (AUTO) 1.1 10^3/uL (1.0-4.0); LYMPHOCYTES % (AUTO) 11 % (12-44); MEAN CORPUSCULAR HEMOGLOBIN 29 pg (25-34); MEAN CORPUSCULAR HGB CONC 32 g/dL (32-36); MEAN CORPUSCULAR VOLUME 91 fL (80-99); MONOCYTES % (AUTO) 10 % (0-12); NEUTROPHILS # (AUTO) 7.9 10^3/uL (1.8-7.8); NEUTROPHILS % (AUTO) 77 % (42-75); PLATELET COUNT 182 10^3/uL (130-400); WHITE BLOOD COUNT 10.2 10^3/uL (4.3-11.0)
[2021-08-15 07:31] LABS: ALBUMIN 2.9 GM/DL (3.2-4.5)
[2021-08-15 07:32] LABS: POTASSIUM 4.3 MMOL/L (3.6-5.0)
[2021-08-15 07:33] LABS: CALCIUM 8.8 MG/DL (8.5-10.1)
[2021-08-15 07:34] LABS: TOTAL PROTEIN 5.8 GM/DL (6.4-8.2)
[2021-08-15 07:36] LABS: BILIRUBIN,TOTAL 0.5 MG/DL (0.1-1.0)
[2021-08-15 07:38] LABS: CREATININE SERUM 0.56 MG/DL (0.60-1.30)
[2021-08-15 08:35] VITALS: BP 143/79
[2021-08-15] MEDS: VITAMIN D3 25 MCG (1,000 UNITS) TABLET PO SCH (08:58)
[2021-08-15] MEDS: GABAPENTIN 100 MG (NEURONTIN) CAP PO SCH ×2 (08:58→22:48)
[2021-08-15] MEDS: CALCIUM CARB + VIT D 600 MG (CALCARB + D) TAB PO SCH (08:59)
[2021-08-15] MEDS: KCL 10 MEQ TAB (MICRO K) PO SCH ×2 (08:59→22:48)
[2021-08-15] MEDS: lisINopril 10 MG (PRINIVIL) TABLET PO SCH (08:59)
[2021-08-15] MEDS: SERTRALINE 100 MG (ZOLOFT) TAB PO SCH (08:59)
[2021-08-15] MEDS: CYANOCOBALAMIN 1,000 MCG (VITAMIN B-12) TABLET PO SCH (08:59)
[2021-08-15] MEDS: SERTRALINE 50 MG (ZOLOFT) TABLET PO SCH (08:59)
[2021-08-15] MEDS: APIXABAN 5 MG (ELIQUIS) TABLET PO SCH ×2 (08:59→22:48)
[2021-08-15] MEDS: polyethylene glycoL POWDER 17 GM (MIRALAX) PACK PO SCH ×2 (09:00→22:48)
[2021-08-15] MEDS: IRON POLYSAC 150 MG CAP (NIFEREX) PO SCH ×2 (09:10→22:49)
--- NOTE | 2021-08-15 09:17 | Physical Therapy Daily Note ---
PT Daily Note-Current Subjective Pt agreeable with encouragement. Pain not rated, reports "I'm sore all over". Confused this date; "Are we in [place]?" "I think my slept on my back last night". Mental Status Patient Orientation: Person, Confused Attachments: Oxygen, Mandujano Catheter Transfers SCALE: Activities may be completed with or without assistive devices. 9-Zisuuilscz-srwposs completes the activity by him/herself with no assistance from a helper. 5-Set-up or Clean-up Assistance-helper sets up or cleans up; patient completes activity. [place] assists only prior to or following the activity. 4-Supervision or Touching Assistance-helper provides verbal cues and/or touching/steadying and/or contact guard assistance as patient completes activity. Assistance may be provided throughout the activity or intermittently. 3-Partial/Moderate Assistance-helper does LESS THAN HALF the effort. [place] lifts, holds or supports trunk or limbs, but provides less than half the effort. 2-Substantial/Maximal Assistance-helper does MORE THAN HALF the effort. [place] lifts or holds trunk or limbs and provides more than half the effort. 0-Qqmghninm-zqswld does ALL the effort. Patient does none of the effort to complete the activity. Or, the assistance of 2 or more helpers is required for the patient to complete the activity. If activity was not attempted, code reason: 7-Patient Refused. 9-Not Applicable-not attempted and the patient did not perform the activity before the current illness, exacerbation or injury. 10-Not Attempted due to Environmental Limitations-(lack of equipment, weather restraints, etc.). 88-Not Attempted due to Medical Conditions or Safety Concerns. Lying to Sitting/Side of Bed(Q: 1 Sit to Stand (QC): 1 Chair/Jzx-ck-Ishci Xfer(QC): 1 Mod A x 2 supine->sit, Sit<->stand: mod a x 2, SPT to (R) to chair: dependent assist x 2. Pt unable to initiate steps to assist with transfers. Weight Bearing Right Lower Extremity: Right Full Weight Bearing Left Lower Extremity: Left Weight Bearing/Tolerated Gait Training Does the Patient Walk?: No and Walking Goal IS indicated Treatments Transfer training. Pt up in chair with all needs met, O2 in situ, nursing in room. Assessment Current Status: Fair Progress Pt tolerated fair-well. Limited by pain and confusion, difficulty sequencing to transfer to chair. PT Coffee Sommelier Goals Coffee Sommelier Goals PT Retirement Goals Time Frame: Sep 18, 2021 Roll Left & Right (QC): 4 Sit to Lying (QC): 4 Lying-Sitting on Side/Bed(QC): 4 Sit to Stand (QC): 4 Chair/Iol-hm-Sayjw Xfer(QC): 4 Toilet Transfer (QC): 4 Walk 10 feet (QC): 4 Walk 50ft with 2 Turns (QC): 4 Walk 150 ft (QC): 4 PT Plan Problem List Problem List: Activity Tolerance, Functional Strength, Safety, Balance, Gait, Transfer, Bed Mobility, ROM Treatment/Plan Treatment Plan: Continue Plan of Care Treatment Plan: Bed Mobility, Education, Functional Activity Tawanna, Functional Strength, Gait, Safety, Therapeutic Exercise, Transfers Treatment Duration: Sep 18, 2021 Frequency: 11 times per week Estimated Hrs Per Day: .5 hour per day Patient and/or Family Agrees t: Yes Safety Risks/Education Patient Education: Transfer Techniques Teaching Recipient: Patient Teaching Methods: Discussion Response to Teaching: Reinforcement Needed Discharge Recommendations Therapy Discharge Recommendati: 24 Hour Supervision, Post Acute PT Time/GCodes Time In: 0842 Time Out: 0859 Total Billed Treatment Time: 17 Total Billed Treatment 1, FA x 17' ANTONIO GAN DPVy Aug 15, 2021 09:17
--- NOTE | 2021-08-15 10:55 | Progress Note - Hospitalist ---
Subjective HPI/CC On Admission Date Seen by Provider: Aug 15, 2021 Time Seen by Provider: 11:00 CC: Left Hip Fracture Subjective/Events-last exam Patient doing the same Drowsy but up in a chair at the bedside Labs remained stable Review of Systems Musculoskeletal: leg pain Objective Exam Vital Signs Vital Signs Date Time Temp Pulse Resp B/P (MAP) Pulse Ox O2 Delivery O2 Flow Rate FiO2 08/15/21 16:20 36.4 88 22 98/63 (75) 95 High Flow N/C 1.00 08/12/21 23:59 45 Capillary Refill : Less Than 3 SecondsLess Than 3 Seconds General Appearance: No Apparent Distress, WD/WN, Chronically ill Respiratory: Lungs Clear, Normal Breath Sounds Cardiovascular: Regular Rate, Rhythm Neurologic/Psychiatric: Alert, Oriented x3, No Motor/Sensory Deficits, Normal Mood/Affect Results/Procedures Lab Laboratory Tests 08/15/21 07:15 Patient resulted labs reviewed. Assessment/Plan Assessment and Plan Assess & Plan/Chief Complaint Assessment Left femur fx - Repaired yesterday with Dr. Bee AFib - Given metoprolol and diltiazem - No acute changes h/o CAD h/o coronary stenting - Takes Plavix and Warfarin Plan Hold Plavix and Warfarin Rehab after surgery as tolerated Discharge when possible Pain control as needed 08/14/2021: Monitor hemoglobin 08/15/2021: Supportive care Pain control Critical Care Critically Ill Patient SIXTO ANAND DO Aug 15, 2021 10:55
--- NOTE | 2021-08-15 15:02 | Cardiology Progress Note ---
Progress Note-Cardiology Events since last exam Date Seen by Provider: Aug 15, 2021 Time Seen by Provider: 14:57 Events since last exam We are following her due to atrial fibrillation, heart failure and coronary artery disease. She has received 4 doses of Eliquis. She was sitting up in a chair. At times she still thinks we are in [place]. She denies chest discomfort, dyspnea, palpitations, syncope, or ankle edema. Certain portions of this document may have been dictated utilizing voice recognition technology. Inherent to this technology, typographical and grammatical errors may exist. As much as I am diligent to identify and correct these mistakes, some errors may remain in the document. Vitals Last set of Vitals Signs Vital Signs 08/12/21 08/15/21 08/15/21 23:59 08:35 14:10 Temp 37.0 Pulse 93 Resp 18 B/P (MAP) 143/79 (100) Pulse Ox 97 O2 Delivery High Flow N/C O2 Flow Rate 1.00 FiO2 45 Labs Labs Laboratory Tests 08/15/21 07:15 Exam Vital Signs Vital Signs Date Time Temp Pulse Resp B/P (MAP) Pulse Ox O2 Delivery O2 Flow Rate FiO2 08/15/21 14:10 97 High Flow N/C 1.00 08/15/21 08:35 37.0 93 18 143/79 (100) 08/12/21 23:59 45 Physical Exam General: Alert. No acute distress. Eye: No xanthelasma. HENT: Normocephalic. Neck: Jugular venous pressure does not appear elevated. Respiratory: Lungs are clear to auscultation. Respirations are non-labored. Breath sounds are equal. Symmetrical chest wall expansion. Cardiovascular: Normal rate. Irregular rhythm. 2/6 systolic ejection murmur. No gallop. No edema. Gastrointestinal: Soft. Normal bowel sounds. Skin: Warm. Dry. Neurologic: Alert and oriented to person, place, time. Cranial nerves 3-11 grossly intact. Psychiatric: Cooperative. Appropriate mood & affect. Labs Laboratory Tests Test 08/15/21 07:15 Range/Units White Blood Count 10.2 4.3-11.0 10^3/uL Red Blood Count 3.65 L 3.80-5.11 10^6/uL Hemoglobin 10.7 L 11.5-16.0 g/dL Hematocrit 33 L 35-52 % Mean Corpuscular Volume 91 80-99 fL Mean Corpuscular Hemoglobin 29 25-34 pg Mean Corpuscular Hemoglobin Concent 32 32-36 g/dL Red Cell Distribution Width 14.4 10.0-14.5 % Platelet Count 182 130-400 10^3/uL Mean Platelet Volume 10.0 9.0-12.2 fL Immature Granulocyte % (Auto) 1 % Neutrophils (%) (Auto) 77 H 42-75 % Lymphocytes (%) (Auto) 11 L 12-44 % Monocytes (%) (Auto) 10 0-12 % Eosinophils (%) (Auto) 2 0-10 % Basophils (%) (Auto) 0 0-10 % Neutrophils # (Auto) 7.9 H 1.8-7.8 10^3/uL Lymphocytes # (Auto) 1.1 1.0-4.0 10^3/uL Monocytes # (Auto) 1.0 0.0-1.0 10^3/uL Eosinophils # (Auto) 0.2 0.0-0.3 10^3/uL Basophils # (Auto) 0.0 0.0-0.1 10^3/uL Immature Granulocyte # (Auto) 0.1 0.0-0.1 10^3/uL Sodium Level 138 135-145 MMOL/L Potassium Level 4.3 3.6-5.0 MMOL/L Chloride Level 104 98-107 MMOL/L Carbon Dioxide Level 24 21-32 MMOL/L Anion Gap 10 5-14 MMOL/L Blood Urea Nitrogen 15 7-18 MG/DL Creatinine 0.56 L 0.60-1.30 MG/DL Estimat Glomerular Filtration Rate 103 BUN/Creatinine Ratio 27 Glucose Level 105 70-105 MG/DL Calcium Level 8.8 8.5-10.1 MG/DL Corrected Calcium 9.7 8.5-10.1 MG/DL Total Bilirubin 0.5 0.1-1.0 MG/DL Aspartate Amino Transf (AST/SGOT) 24 5-34 U/L Alanine Aminotransferase (ALT/SGPT) 17 0-55 U/L Alkaline Phosphatase 84 40-136 U/L Total Protein 5.8 L 6.4-8.2 GM/DL Albumin 2.9 L 3.2-4.5 GM/DL Diagnosis/Problems Diagnosis/Problems (1) Chronic systolic heart failure Assessment & Plan: Her most recent chest x-ray from 08/11 did not show significant pulmonary edema. Her lungs are clear today. She is on appropriate guideline directed medical therapy. For unclear reasons, she was started on metoprolol succinate but had already been taking carvedilol at home. I stopped the metoprolol succinate. We will continue carvedilol and lisinopril. In light of her left ventricular systolic dysfunction, one might consider stopping diltiazem and increasing the doses of carvedilol and lisinopril. I will leave this up to the discretion of her regular efficiency clerk. (2) Coronary artery disease without angina pectoris Assessment & Plan: She is not having any angina at this point in time. Continue beta-deisy and statin medication. She had not been taking aspirin at home because she was on warfarin for atrial fibrillation. Now she has been prescribed apixaban. (3) Paroxysmal atrial fibrillation Assessment & Plan: Continue beta-deisy and diltiazem for rate control. However, as above, in light of her left ventricular systolic dysfunction, one might consider stopping diltiazem and increasing the dose of carvedilol. She is now on apixaban for stroke prophylaxis. This will probably be safer for the patient compared to warfarin. Although she is over the age of 78, her weight is over 60 kg and creatinine is less than 1.5. As such, she does not need a dose reduction of the apixaban. (4) Cardiomyopathy Assessment & Plan: Her most recent echocardiogram showed moderate left ventricular systolic dysfunction. I have adjusted her medication as above since she was taking 2 beta-blockers for unclear reasons. At home she was only on carvedilol. The lisinopril will be continued. As above, we may want to cons ider other adjustments to her medication for the cardiomyopathy but I will leave this up to her regular efficiency clerk when he returns Monday. (5) Pulmonary hypertension Assessment & Plan: Most likely due to her chronic heart failure. She uses oxygen as needed at home. She may benefit from oxygen 24 hours/day. However, she does not like wearing her oxygen at home. (6) Sick sinus syndrome Assessment & Plan: She has a permanent pacemaker in place that appears to be functioning normally. (7) Primary hypertension Assessment & Plan: Blood pressures have been reasonably controlled with the present combination of medication. As above, I will streamline her medication by getting her back on to just 1 beta-deisy. (8) Mixed hyperlipidemia Assessment & Plan: Continue atorvastatin. I thought I had added a lipid panel to her blood work from 08/14 but the test was never done. I have the ordered this again. RANJAN LAKHANI JR, MD Aug 15, 2021 15:02
[2021-08-15 15:20] LABS: TRIGLYCERIDES 82 MG/DL (<150); VLDL CHOLESTEROL 16 MG/DL (5-40)
[2021-08-15 15:25] LABS: CHOLESTEROL 94 MG/DL (< 200); HDL CHOLESTEROL 39 MG/DL (40-60)
[2021-08-15 16:20] VITALS: BP 98/63
[2021-08-15 23:38] VITALS: BP 119/73
[2021-08-16] MEDS: RT-ALBUTEROL SULF 2.5 MG/3 ML PRE-MIX VIAL INH SCH ×4 (02:12→22:26)
[2021-08-16 06:58] LABS: BASOPHILS % (AUTO) 0 % (0-10); EOSINOPHILS # (AUTO) 0.3 10^3/uL (0.0-0.3); EOSINOPHILS % (AUTO) 3 % (0-10); HEMATOCRIT 34 % (35-52); HEMOGLOBIN 10.8 g/dL (11.5-16.0); LYMPHOCYTES # (AUTO) 1.3 10^3/uL (1.0-4.0); LYMPHOCYTES % (AUTO) 12 % (12-44); MEAN CORPUSCULAR HEMOGLOBIN 30 pg (25-34); MEAN CORPUSCULAR HGB CONC 32 g/dL (32-36); MEAN CORPUSCULAR VOLUME 93 fL (80-99); MEAN PLATELET VOLUME 10.1 fL (9.0-12.2); MONOCYTES # (AUTO) 0.9 10^3/uL (0.0-1.0); MONOCYTES % (AUTO) 8 % (0-12); NEUTROPHILS # (AUTO) 8.3 10^3/uL (1.8-7.8); NEUTROPHILS % (AUTO) 76 % (42-75); PLATELET COUNT 226 10^3/uL (130-400); WHITE BLOOD COUNT 10.9 10^3/uL (4.3-11.0)
[2021-08-16 07:30] LABS: ALBUMIN 2.8 GM/DL (3.2-4.5); BILIRUBIN,TOTAL 0.6 MG/DL (0.1-1.0); CALCIUM 9.1 MG/DL (8.5-10.1); CREATININE SERUM 0.59 MG/DL (0.60-1.30); POTASSIUM 4.2 MMOL/L (3.6-5.0); TOTAL PROTEIN 5.7 GM/DL (6.4-8.2)
[2021-08-16 08:00] VITALS: BP 146/74
[2021-08-16] MEDS: lisINopril 10 MG (PRINIVIL) TABLET PO SCH (08:55)
[2021-08-16] MEDS: GABAPENTIN 100 MG (NEURONTIN) CAP PO SCH ×2 (08:55→23:10)
[2021-08-16] MEDS: CYANOCOBALAMIN 1,000 MCG (VITAMIN B-12) TABLET PO SCH (08:55)
[2021-08-16] MEDS: KCL 10 MEQ TAB (MICRO K) PO SCH ×2 (08:56→23:11)
[2021-08-16] MEDS: polyethylene glycoL POWDER 17 GM (MIRALAX) PACK PO SCH ×2 (08:56→23:10)
[2021-08-16] MEDS: IRON POLYSAC 150 MG CAP (NIFEREX) PO SCH ×2 (08:56→23:14)
[2021-08-16] MEDS: SERTRALINE 50 MG (ZOLOFT) TABLET PO SCH (08:56)
[2021-08-16] MEDS: CALCIUM CARB + VIT D 600 MG (CALCARB + D) TAB PO SCH (08:56)
[2021-08-16] MEDS: APIXABAN 5 MG (ELIQUIS) TABLET PO SCH ×2 (08:56→23:11)
[2021-08-16] MEDS: VITAMIN D3 25 MCG (1,000 UNITS) TABLET PO SCH (08:56)
[2021-08-16] MEDS: SERTRALINE 100 MG (ZOLOFT) TAB PO SCH (08:56)
--- NOTE | 2021-08-16 09:19 | Progress Note - Ortho ---
Progress Note Subjective Date of Exam 08/16/21 Chief Complaint Tired and sore HPI/Events since last exam Has been working with therapy. Has been having difficulty mobilizing. States hip pain has not been a major problem. Review of Systems not obtained Allergies: Coded Allergies: Penicillins (Unverified Allergy, Unknown, 11/17/19) Home Meds Reported Medications Furosemide (Furosemide) 20 Mg Tablet, 20 MG PO DAILY PRN for FLUID RETENTION, TAB 08/10/21 Clopidogrel Bisulfate (Clopidogrel) 75 Mg Tablet, 75 MG PO DAILY, TAB 08/10/21 Iron Polysaccharide Complex (Ferrex 150) 150 Mg Capsule, 150 MG PO BID, CAP 08/10/21 Lisinopril (Lisinopril) 10 Mg Tablet, 10 MG PO DAILY, TAB 08/10/21 Diltiazem HCl (Diltiazem 24Hr ER) 180 Mg Cap.er.24h, 180 MG PO DAILY, TAB 08/10/21 Potassium Chloride (Klor-Con 10) 10 Meq Tablet.er, 10 MEQ PO BID, TAB 08/10/21 Fexofenadine HCl (Fexofenadine HCl) 60 Mg Tablet, 60 MG PO DAILY PRN for ALLERGY SYMPTOMS, TAB 08/10/21 Atorvastatin Calcium (Atorvastatin Calcium) 40 Mg Tablet, 40 MG PO HS, TAB 08/10/21 Gabapentin (Gabapentin) 100 Mg Capsule, 100 MG PO BID, CAP 08/10/21 Sertraline HCl (Sertraline HCl) 100 Mg Tablet, 100 MG PO DAILY, TAB TAKES 50MG +100MG TO EQUAL 150MG 08/10/21 Sertraline HCl (Sertraline HCl) 50 Mg Tablet, 50 MG PO DAILY, TAB TAKES 50MG +100MG TO EQUAL 150MG 08/10/21 Calcium Carbonate/Vitamin D3 (Calcium + Vitamin D Tablet) 1 Each Tablet, 1 EACH PO DAILY, TAB 08/10/21 Cyanocobalamin (Vitamin B-12) (Vitamin B-12) 500 Mcg Tablet, 500 MCG PO DAILY, TAB 08/10/21 Carvedilol (Carvedilol) 12.5 Mg Tablet, 12.5 MG PO BID WITH MEALS, TAB 10/26/20 Warfarin Sodium (Warfarin Sodium) 1 Mg Tablet, 1 MG PO MO,TU,ДМИТРИЙ,FRI,SAT@HS, TAB 06/30/20 Warfarin Sodium (Warfarin Sodium) 1 Mg Tablet, 1.5 MG PO SUN,WED@HS, TAB TAKES 1 & (1MG) TAB 06/30/20 Cholecalciferol (Vitamin D3) (Vitamin D3) 50 Mcg Capsule, 50 MCG PO DAILY, CAP 02/24/20 Discontinued Reported Medications Docusate Sodium (Stool Softener) 100 Mg Tablet, 100 MG PO DAILY PRN for CONSTIPATION-1ST LINE, TAB 10/26/20 Tolterodine Tartrate (Tolterodine Tartrate ER) 4 Mg Cap.er.24h, 4 MG PO DAILY, CAP 02/24/20 Calcium Carbonate (Calcium Carbonate) 600 Mg Tablet, 600 MG PO Q48H, TAB 11/18/19 Lisinopril (Lisinopril) 20 Mg Tablet, 20 MG PO DAILY, TAB 11/17/19 Diltiazem HCl (Cartia Xt) 180 Mg Cap.er.24h, 180 MG PO DAILY, CAP 11/17/19 Cyanocobalamin (Vitamin B-12) 100 Mcg Tablet, 1000 MCG PO DAILY, TAB 11/17/19 Clopidogrel Bisulfate (Plavix) 75 Mg Tablet, 75 MG PO DAILY, TAB 11/17/19 Atorvastatin Calcium (Lipitor) 40 Mg Tablet, 40 MG PO DAILY, TAB 11/17/19 Acetaminophen (Acetaminophen) 325 Mg Tablet, 650 MG PO Q6H PRN for PAIN-MILD (1- 4), TAB 11/17/19 Discontinued Scripts Enoxaparin Sodium (Enoxaparin Sodium) 100 Mg/1 Ml Syringe, 100 MG SQ DAILY, #3 SYRINGE 1 Refill Prov:JOSE RAMON PETER MD 10/30/20 Nitroglycerin (Nitroglycerin) 0.4 Mg Tab.subl, 0 MG SL UD PRN for CHEST PAIN (ANGINA), #30 TAB Prov:SIXTO ANAND DO 07/01/20 Objective Exam Left Hip: Dressing C/D/I, +DF, no s/s of DVT Vital Signs Vital Signs Date Time Temp Pulse Resp B/P (MAP) Pulse Ox O2 Delivery O2 Flow Rate FiO2 08/16/21 07:21 97 High Flow N/C 1.00 08/15/21 23:38 36.6 75 20 119/73 (88) 97 High Flow N/C 1.00 08/15/21 20:00 93 Nasal Cannula 1.00 08/15/21 16:20 36.4 88 22 98/63 (75) 95 High Flow N/C 1.00 08/15/21 14:10 97 High Flow N/C 1.00 08/15/21 10:28 98 High Flow N/C 1.00 I & O 08/16/21 06:59 Intake Total 740 ml Output Total 550 ml Balance 190 ml Lab Results Laboratory Tests 08/16/21 06:45: White Blood Count 10.9, Red Blood Count 3.63L, Hemoglobin 10.8L, Hematocrit 34L, Mean Corpuscular Volume 93, Mean Corpuscular Hemoglobin 30, Mean Corpuscular Hemoglobin Concent 32, Red Cell Distribution Width 14.2, Platelet Count 226, Mean Platelet Volume 10.1, Immature Granulocyte % (Auto) 1, Neutrophils (%) (Auto) 76H, Lymphocytes (%) (Auto) 12, Monocytes (%) (Auto) 8, Eosinophils (%) (Auto) 3, Basophils (%) (Auto) 0, Neutrophils # (Auto) 8.3H, Lymphocytes # (Auto) 1.3, Monocytes # (Auto) 0.9, Eosinophils # (Auto) 0.3, Basophils # (Auto) 0.0, Immature Granulocyte # (Auto) 0.1, Sodium Level 138, Potassium Level 4.2, Chloride Level 104, Carbon Dioxide Level 24, Anion Gap 10, Blood Urea Nitrogen 13, Creatinine 0.59L, Estimat Glomerular Filtration Rate 97, BUN/Creatinine Ratio 22, Glucose Level 110H, Calcium Level 9.1, Corrected Calcium 10.1, Total Bilirubin 0.6, Aspartate Amino Transf (AST/SGOT) 25, Alanine Aminotransferase (ALT/SGPT) 24, Alkaline Phosphatase 81, Total Protein 5.7L, Albumin 2.8L Microbiology 08/10/21 MRSA Screen - Final, Complete MRSA not isolated 08/09/21 Urine Culture - Final, Complete Klebsiella pneumoniae Assessment and Plan Assessment s/p Prosthetic Replacement for Left Femoral Neck Fracture Problem List s/p Prosthetic Replacement for Left Femoral Neck Fracture Plan PT/OT DVT Prophylaxis Potential Swing Final Diagonsis s/p Prosthetic Replacement for Left Femoral Neck Fracture Level of the visit: Level 3 (global postop) RITA UP MD Aug 16, 2021 09:19
--- NOTE | 2021-08-16 10:00 | Cardiology Progress Note ---
Subjective Date Seen by Provider: Aug 16, 2021 Time Seen by Provider: 09:00 Subjective/Events-last exam Patient is sitting up in chair, denies any chest pain. Review of Systems General: No Chills, No Night Sweats, No Fatigue, No Malaise, No Appetite, No Other HEENT: No Head Aches, No Visual Changes, No Eye Pain, No Ear Pain, No Dysphasia, No Sinus Congestion, No Post Nasal Drip, No Sore Throat, No Other Pulmonary: No Dyspnea, No Cough, No Pleuritic Chest Pain, No Other Cardiovascular: No: Chest Pain, Palpitations, Orthopnea, Paroxysmal Noc. Dyspnea, Edema, Lt Headedness, Other Objective-Cardiology Exam Last Set of Vital Signs Vital Signs 08/12/21 08/16/21 23:59 08:00 Temp 36.2 Pulse 65 Resp 20 B/P (MAP) 146/74 (98) Pulse Ox 97 O2 Delivery High Flow N/C O2 Flow Rate 1.00 FiO2 45 I&O Intake and Output 08/15/21 23:59 Intake Total 740 ml Output Total 725 ml Balance 15 ml Intake Oral 740 ml Output Urine Total 725 ml General: Alert, Oriented X3, Cooperative HEENT: Atraumatic, PERRLA Neck: Supple, No JVD, No Thyromegaly Lungs: Normal Air Movement Heart: Normal S1, Normal S2, No Murmurs, Other (Atrial fibrillation) Abdomen: Normal Bowel Sounds, Soft, No Tenderness, No Hepatosplenomegaly, No Masses Extremities: No Clubbing, No Edema, Normal Pulses, No Tenderness/Swelling Skin: No Rashes, No Significant Lesion Neuro: Normal Speech, Normal Tone, Sensation Intact Psych/Mental Status: Mental Status NL, Mood NL Results Lab Laboratory Tests 08/16/21 06:45 A/P-Cardiology Admission Diagnosis Left hip fracture CAD PAF HTN Assessment/Plan Left hip fracture secondary to nonsyncopal fall, status post hip surgery, recovering well Status post acute respiratory insufficiency, transferred to the intensive care unit, currently feeling better, breathing better. Coronary artery disease, history of multiple interventions. LHC done Jun 28, 2020 revealing total occlusion of the circumflex artery with successful balloon angioplasty and 50 percent residual stenosis, failed attempt to place stent d/t calcification. Severe stenosis in the stent in the LAD, underwent balloon angioplasty with mild to moderate residual stenosis, known to have Synergy 3.5x28 and 3.0x16mm, RCA has multiple stents Synergy 4.0 x38 and 3.5 x 38 that were patent with sm vessel dz distally. Patient had NSTEMI and underwent LHC on 10/29/20 with stenting to the circumflex artery using Abiola 2.5x15mm expanded to 2.6mm with excellent results. Maintained on Plavix and Eliquis CHF, chronic compensated LV systolic dysfunction, ischemic cardiomyopathy, EF 35-40%. Restarted on JAGDEEP-I and beta blockers during hospitalization earlier this month. Continue to monitor. Paroxysmal atrial fibrillation, went back to atrial fibrillation, rate controlled, maintained on Cardizem CD 180 mg, Coreg 12.5 mg, Eliquis, continue to monitor. [id number] score of score of 5, changed for Coumadin to Eliquis 5 mg BID S/p Medtronic dual chamber PPM [place] [address] Pierce at [facility]. Most recent interrogation done in our office Carotid artery stenosis, hx of right carotid stenting, Hx CVA unknown date Poor memory GERD/PUD Supervisory-Addendum Brief Supervisory Addendum Participated in pt care: history, MDM, physical Personally performed: exam, history, MDM Care discussed with: JERILYN Results interpretation: Verified all documentation Notes: Patient was seen and evaluated with Susan, examination performed, management plan was discussed, agree with the current scribed note, I made few changes to the note using Italic font Patient was sitting in a chair, eating breakfast Appeared to be confused still, no active pain Borderline tachycardic Tolerating the current dose of Coreg and diltiazem well. Continue to monitor blood pressure and heart rate and monitor tolerance and response SUSAN LOVE Aug 16, 2021 10:00 MACARIO CARO MD Aug 16, 2021 10:13
--- NOTE | 2021-08-16 11:36 | Physical Therapy Daily Note ---
PT Daily Note-Current Subjective Patient yells in right knee pain and left hip pain with medication issued. Pain Numeric Pain Scale: 10-Worst Possible Pain Location: Left Location Body Site: Hip Pain Description: Acute Mental Status Patient Orientation: Person, Time, Situation Transfers SCALE: Activities may be completed with or without assistive devices. 1-Ggvggqxcsf-btxpuis completes the activity by him/herself with no assistance from a helper. 5-Set-up or Clean-up Assistance-helper sets up or cleans up; patient completes activity. Pride assists only prior to or following the activity. 4-Supervision or Touching Assistance-helper provides verbal cues and/or touching/steadying and/or contact guard assistance as patient completes activity. Assistance may be provided throughout the activity or intermittently. 3-Partial/Moderate Assistance-helper does LESS THAN HALF the effort. Pride lifts, holds or supports trunk or limbs, but provides less than half the effort. 2-Substantial/Maximal Assistance-helper does MORE THAN HALF the effort. Pride lifts or holds trunk or limbs and provides more than half the effort. 4-Mmmhsfmts-enicrr does ALL the effort. Patient does none of the effort to complete the activity. Or, the assistance of 2 or more helpers is required for the patient to complete the activity. If activity was not attempted, code reason: 7-Patient Refused. 9-Not Applicable-not attempted and the patient did not perform the activity before the current illness, exacerbation or injury. 10-Not Attempted due to Environmental Limitations-(lack of equipment, weather restraints, etc.). 88-Not Attempted due to Medical Conditions or Safety Concerns. Sit to Lying (QC): 1 (x 2) Sit to Stand (QC): 1 (x 2 incontinent urine) Chair/Wwm-fq-Xesbf Xfer(QC): 1 (x 2) Patient unable to stand and assist with mobility due to pain Weight Bearing Right Lower Extremity: Right Full Weight Bearing Left Lower Extremity: Left Weight Bearing/Tolerated Gait Training Does the Patient Walk?: No and Walking Goal IS indicated Exercises Supine Ex: Heel Slides Supine Reps: 12 (AAROM) Seated Therapy Exercises: Long arc quads Seated Reps: 12 (AAROM) Assessment Current Status: Poor Progress Patient tolerates minimal activity and was unable to assist with mobility this a.m. Nursing present. Patient in bed and repositioned for comfort. From a PT standpoint, patient would benefit from extended care due to inability tolerate mobility. 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 Goals [facility] Goals PT [facility] Goals Time Frame: Sep 18, 2021 Roll Left & Right (QC): 4 Sit to Lying (QC): 4 Lying-Sitting on Side/Bed(QC): 4 Sit to Stand (QC): 4 Chair/Onr-cc-Zmrcc Xfer(QC): 4 Toilet Transfer (QC): 4 Walk 10 feet (QC): 4 Walk 50ft with 2 Turns (QC): 4 Walk 150 ft (QC): 4 PT Plan Treatment/Plan Treatment Plan: Continue Plan of Care Treatment Plan: Bed Mobility, Education, Functional Activity Tawanna, Functional Strength, Gait, Safety, Therapeutic Exercise, Transfers Treatment Duration: Sep 18, 2021 Frequency: 6 times per week (due to inability to tolerate extensive therapy.) Estimated Hrs Per Day: .5 hour per day Patient and/or Family Agrees t: Yes Time/GCodes Time In: 1055 Time Out: 1112 Total Billed Treatment Time: 17 Total Billed Treatment 1 visit FA 17 min LESLEY MURRAY PT Aug 16, 2021 11:36
--- NOTE | 2021-08-16 12:16 | Progress Note ---
Subjective Subjective/Events-last exam Pt states she is having a lot of left sided pain in her knee and her side, which she relates to the bed. Denies hip pain. She is wearing oxygen this morning, states she has used at home in the past, but not recently. Objective Exam Last Set of Vital Signs Vital Signs Date Time Temp Pulse Resp B/P (MAP) Pulse Ox O2 Delivery O2 Flow Rate FiO2 08/16/21 08:00 36.2 65 20 146/74 (98) 97 High Flow N/C 1.00 08/12/21 23:59 45 Capillary Refill : Less Than 3 SecondsLess Than 3 Seconds I&O Intake and Output 08/16/21 00:00 Intake Total 740 ml Output Total 725 ml Balance 15 ml Intake Oral 740 ml Output Urine Total 725 ml General: Alert, No Acute Distress Lungs: Other (bibasilar rales) Heart: Other (irregularly irregular) Neuro: Normal Speech Psych/Mental Status: Mental Status NL Results/Procedures Lab Laboratory Tests 08/16/21 06:45: White Blood Count 10.9, Red Blood Count 3.63L, Hemoglobin 10.8L, Hematocrit 34L, Mean Corpuscular Volume 93, Mean Corpuscular Hemoglobin 30, Mean Corpuscular Hemoglobin Concent 32, Red Cell Distribution Width 14.2, Platelet Count 226, Mean Platelet Volume 10.1, Immature Granulocyte % (Auto) 1, Neutrophils (%) (Auto) 76H, Lymphocytes (%) (Auto) 12, Monocytes (%) (Auto) 8, Eosinophils (%) (Auto) 3, Basophils (%) (Auto) 0, Neutrophils # (Auto) 8.3H, Lymphocytes # (Auto) 1.3, Monocytes # (Auto) 0.9, Eosinophils # (Auto) 0.3, Basophils # (Auto) 0.0, Immature Granulocyte # (Auto) 0.1, Sodium Level 138, Potassium Level 4.2, Chloride Level 104, Carbon Dioxide Level 24, Anion Gap 10, Blood Urea Nitrogen 13, Creatinine 0.59L, Estimat Glomerular Filtration Rate 97, BUN/Creatinine Ratio 22, Glucose Level 110H, Calcium Level 9.1, Corrected Calcium 10.1, Total Bilirubin 0.6, Aspartate Amino Transf (AST/SGOT) 25, Alanine Aminotransferase (ALT/SGPT) 24, Alkaline Phosphatase 81, Total Protein 5.7L, Albumin 2.8L Microbiology 08/10/21 MRSA Screen - Final, Complete MRSA not isolated 08/09/21 Urine Culture - Final, Complete Klebsiella pneumoniae Assessment/Plan Assessment/Plan (1) Subcapital fracture of left hip Status: Acute Assessment & Plan: s/p repair, working with PT, plan for [facility] facility on d/c. Qualifiers: Qualified Codes: S72.012A - Unspecified intracapsular fracture of left fem ur, initial encounter for closed fracture (2) Chronic systolic heart failure Status: Chronic Assessment & Plan: Appreciate Cardiology recommendations. (3) Paroxysmal atrial fibrillation Status: Chronic Assessment & Plan: Appreciate Cardiology recommendations, on Eliquis for stroke prophylaxis. (4) Primary hypertension Status: Chronic (5) Mixed hyperlipidemia Status: Chronic JOSE RAMON PETER MD Aug 16, 2021 12:16
[2021-08-16 12:31] VITALS: BP 138/87
--- NOTE | 2021-08-16 14:26 | Occupational Ther Daily Note ---
OT Current Status-Daily Note Subjective Pt laying in bed, agreeable to OT Tx. Pt states she feels like she is urinating. ADL-Treatment Therapy Code Descriptions/Definitions Functional [place] Measure: 0=Not Assessed/NA 4=Minimal Assistance 1=Total Assistance 5=Supervision or Setup 2=Maximal Assistance 6=Modified [place] 3=Moderate Assistance 7=Complete IndependenceSCALE: Activities may be completed with or without assistive devices. 2-Jtblahhoki-lweulyy completes the activity by him/herself with no assistance from a helper. 5-Set-up or Clean-up Assistance-helper sets up or cleans up; patient completes activity. [place] assists only prior to or following the activity. 4-Supervision or Touching Assistance-helper provides verbal cues and/or touching/steadying and/or contact guard assistance as patient completes activity. Assistance may be provided throughout the activity or intermittently. 3-Partial/Moderate Assistance-helper does LESS THAN HALF the effort. [place] lifts, holds or supports trunk or limbs, but provides less than half the effort. 2-Substantial/Maximal Assistance-helper does MORE THAN HALF the effort. [place] lifts or holds trunk or limbs and provides more than half the effort. 3-Aaqxdtqtc-hhyolh does ALL the effort. Patient does none of the effort to complete the activity. Or, the assistance of 2 or more helpers is required for the patient to complete the activity. If activity was not attempted, code reason: 7-Patient Refused. 9-Not Applicable-not attempted and the patient did not perform the activity before the current illness, exacerbation or injury. 10-Not Attempted due to Environmental Limitations-(lack of equipment, weather restraints, etc.). 88-Not Attempted due to Medical Conditions or Safety Concerns. Lower Body Dressing (QC): 1 (x2) Toileting Hygiene (QC): 1 (x2) Other Treatment Pt laying in bed, states she feels like she is urinating. Pt required assist x2 to roll side to side to doff soiled brief, and to manage hygiene. Assist x2 to scoot towards HOB and position with pillows. Pillow placed in between pt's legs to prevent abduction, and pt positioned towards R side with pillow in order to take pressure off of her buttocks. Post tx, pt in bed, call light in reach and all needs met. Education OT Patient Education: Correct positioning, Modified ADL techniques, Progress toward Goal/Update tx plan, Purpose of tx/functional activities Teaching Recipient: Patient Teaching Methods: Discussion Response to Teaching: Reinforcement Needed OT Manager Android Goals Mcfp Goals Time Frame: Aug 27, 2021 Eating (QC): 6 Oral Hygiene (QC): 6 Toileting Hygiene (QC): 4 Shower/Bathe Self (QC): 4 Upper Body Dressing (QC): 5 Lower Body Dressing (QC): 4 On/Off Footwear (QC): 3 Additional Goals: 1-Demonstrate ADL Tasks, 2-Verbalize Understanding, 3- ImproveStrength/Tawanna 1=Demonstrate adherence to instructed precautions during ADL tasks. 2=Patient will verbalize/demonstrate understanding of assistive devices/modifications for ADL. 3=Patient will improve strength/tolerance for activity to enable patient to perform ADL's. OT Education/Plan Problem List/Assessment Assessment: Decreased Activ Tolerance, Decreased Safety Aware, Decreased UE Strength, Dependent Transfers, Impaired Bed Mobility, Impaired Funct Balance, Impaired I ADL's, Impaired Self-Care Skills Pt would benefit from skilled OT services in order to increase BUE strength and activity tolerance, increase independence and safety with ADLs, and education on AE for LE dressing due to hip precautions. Discharge Recommendations Plan/Recommendations: Continue POC Treatment Plan/Plan of Care Patient would benefit from OT for education, treatment and training to promote independence in ADL's, mobility, safety and/or upper extremity function for ADL's. Plan of Care: ADL Retraining, Functional Mobility, UE Funct Exercise/Act Treatment Duration: Aug 27, 2021 Frequency: 3 times per week (3-5 times a week) Estimated Hrs Per Day: .25 hour per day 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: Fair Time/GCodes Start Time: 14:09 Stop Time: 14:18 Total Time Billed (hr/min): 9 Billed Treatment Time 1, ADL JUSTIN GALVEZ OT Aug 16, 2021 14:26
[2021-08-16 16:00] VITALS: BP 113/69
[2021-08-16] MEDS: HYDROcodone/APAP 5 MG/325 MG (LORTAB) TAB PO PRN (23:10)
[2021-08-17] VITALS: BP 96/58
[2021-08-17 00:27] VITALS: BP 96/58
[2021-08-17] MEDS: RT-ALBUTEROL SULF 2.5 MG/3 ML PRE-MIX VIAL INH SCH ×4 (02:56→21:15)
[2021-08-17 05:55] LABS: HEMATOCRIT 31 % (35-52); MEAN CORPUSCULAR HEMOGLOBIN 30 pg (25-34); MEAN CORPUSCULAR HGB CONC 33 g/dL (32-36); MEAN CORPUSCULAR VOLUME 91 fL (80-99); MEAN PLATELET VOLUME 10.3 fL (9.0-12.2); PLATELET COUNT 231 10^3/uL (130-400); WHITE BLOOD COUNT 9.5 10^3/uL (4.3-11.0)
[2021-08-17 06:08] LABS: POTASSIUM 3.8 MMOL/L (3.6-5.0)
[2021-08-17 06:09] LABS: CALCIUM 9.2 MG/DL (8.5-10.1)
[2021-08-17 06:13] LABS: CREATININE SERUM 0.59 MG/DL (0.60-1.30)
[2021-08-17 08:00] VITALS: BP 133/72
--- NOTE | 2021-08-17 08:11 | Cardiology Progress Note ---
Subjective Date Seen by Provider: Aug 17, 2021 Time Seen by Provider: 08:09 Subjective/Events-last exam Patient is laying down in bed, more oriented today, complaining of right knee pain Review of Systems General: No Chills, No Night Sweats; Fatigue, Malaise; No Appetite, No Other HEENT: No Head Aches, No Visual Changes, No Eye Pain, No Ear Pain, No Dysphasia, No Sinus Congestion, No Post Nasal Drip, No Sore Throat, No Other Pulmonary: No Dyspnea, No Cough, No Pleuritic Chest Pain, No Other Cardiovascular: No: Chest Pain, Palpitations, Orthopnea, Paroxysmal Noc. Dyspnea, Edema, Lt Headedness, Other Objective-Cardiology Exam Last Set of Vital Signs Vital Signs 08/12/21 08/16/21 08/17/21 08/17/21 23:59 12:31 00:00 00:27 Temp 36.0 Pulse 84 Resp 22 B/P (MAP) 96/58 (71) Pulse Ox 93 O2 Delivery Room Air O2 Flow Rate 1.00 FiO2 45 I&O Intake and Output 08/17/21 00:00 Intake Total 1280 ml Output Total 350 ml Balance 930 ml Intake Oral 1280 ml Output Urine Total 350 ml # Voids 5 General: Alert, Oriented X3, Cooperative, No Acute Distress HEENT: Atraumatic, PERRLA Neck: Supple, No JVD, No Thyromegaly Lungs: Other (bibasilar rales) Heart: Other (irregularly irregular) Abdomen: Normal Bowel Sounds, Soft, No Tenderness, No Hepatosplenomegaly, No Masses Extremities: No Clubbing, No Edema, Normal Pulses, No Tenderness/Swelling Skin: No Rashes, No Significant Lesion Neuro: Normal Speech Psych/Mental Status: Mental Status NL Results Lab Laboratory Tests 08/17/21 05:15 A/P-Cardiology Admission Diagnosis Left hip fracture CAD PAF HTN Assessment/Plan Left hip fracture secondary to nonsyncopal fall, status post hip surgery, recovering slowly, receiving physical therapy. Status post acute respiratory insufficiency, transferred to the intensive care unit, currently feeling better, breathing better. Coronary artery disease, history of multiple interventions. LHC done Jun 28, 2020 revealing total occlusion of the circumflex artery with successful balloon angioplasty and 50 percent residual stenosis, failed attempt to place stent d/t calcification. Severe stenosis in the stent in the LAD, underwent balloon angioplasty with mild to moderate residual stenosis, known to have Synergy 3.5x28 and 3.0x16mm, RCA has multiple stents Synergy 4.0 x38 and 3.5 x 38 that were patent with sm vessel dz distally. Patient had NSTEMI and underwent LHC on 10/29/20 with stenting to the circumflex artery using Abiola 2.5x15mm expanded to 2.6mm with excellent results. Maintained on Plavix and Eliquis CHF, chronic compensated LV systolic dysfunction, ischemic cardiomyopathy, EF 35-40%. Restarted on JAGDEEP-I and beta blockers during hospitalization earlier this month. Continue to monitor. Paroxysmal atrial fibrillation, went back to atrial fibrillation, rate controlled, maintained on Cardizem CD 180 mg, Coreg 12.5 mg, Eliquis, continue to monitor. [id number] score of score of 5, changed for Coumadin to Eliquis 5 mg BID S/p Medtronic dual chamber PPM in [address] [facility]. Most recent interrogation done in our office Carotid artery stenosis, hx of right carotid stenting, Hx CVA unknown date Poor memory GERD/PUD MACARIO CARO MD Aug 17, 2021 08:11
--- NOTE | 2021-08-17 09:37 | Physical Therapy Daily Note ---
PT Daily Note-Current Subjective Patient has c/o right knee pain vs left hip pain. RN notified. Pain Numeric Pain Scale: 10-Worst Possible Pain Location: Right Location Body Site: Knee Pain Description: Acute Mental Status Patient Orientation: Normal For Age Transfers SCALE: Activities may be completed with or without assistive devices. 4-Sbnhqatmbs-lvpbjqc completes the activity by him/herself with no assistance from a helper. 5-Set-up or Clean-up Assistance-helper sets up or cleans up; patient completes activity. [place] assists only prior to or following the activity. 4-Supervision or Touching Assistance-helper provides verbal cues and/or touching/steadying and/or contact guard assistance as patient completes activity. Assistance may be provided throughout the activity or intermittently. 3-Partial/Moderate Assistance-helper does LESS THAN HALF the effort. [place] lifts, holds or supports trunk or limbs, but provides less than half the effort. 2-Substantial/Maximal Assistance-helper does MORE THAN HALF the effort. [place] lifts or holds trunk or limbs and provides more than half the effort. 4-Pwdvtameq-ipvdqe does ALL the effort. Patient does none of the effort to complete the activity. Or, the assistance of 2 or more helpers is required for the patient to complete the activity. If activity was not attempted, code reason: 7-Patient Refused. 9-Not Applicable-not attempted and the patient did not perform the activity before the current illness, exacerbation or injury. 10-Not Attempted due to Environmental Limitations-(lack of equipment, weather restraints, etc.). 88-Not Attempted due to Medical Conditions or Safety Concerns. Lying to Sitting/Side of Bed(Q: 2 Sit to Stand (QC): 1 Chair/Thq-bd-Xeamz Xfer(QC): 1 Toilet Transfer (QC): 1 patient unable to weight bear right LE due to knee pain Weight Bearing Right Lower Extremity: Right Full Weight Bearing Left Lower Extremity: Left Weight Bearing/Tolerated Gait Training Does the Patient Walk?: No and Walking Goal IS indicated Exercises Seated Therapy Exercises: Long arc quads, Hip flexion Seated Reps: 15 cotton tipper notified on right knee pain and patient inability to stand due to this. Patient tolerates minimal activity. Increase activity as tolerated by patient. PT Traffic Director Goals Traffic Director Goals PT Fpc Goals Time Frame: Sep 18, 2021 Roll Left & Right (QC): 4 Sit to Lying (QC): 4 Lying-Sitting on Side/Bed(QC): 4 Sit to Stand (QC): 4 Chair/Asp-tv-Iwnkd Xfer(QC): 4 Toilet Transfer (QC): 4 Walk 10 feet (QC): 4 Walk 50ft with 2 Turns (QC): 4 Walk 150 ft (QC): 4 PT Plan Treatment/Plan Treatment Plan: Continue Plan of Care Treatment Plan: Bed Mobility, Education, Functional Activity T[place]anna, Functional Strength, Gait, Safety, Therapeutic Exercise, Transfers Treatment Duration: Sep 18, 2021 Frequency: 6 times per week (due to inability to tolerate extensive therapy.) Estimated Hrs Per Day: .5 hour per day Patient and/or Family Agrees t: Yes Time/GCodes Time In: 837 Time Out: 851 Total Billed Treatment Time: 14 Total Billed Treatment 1 visit FA 14 min LESLEY MURRAY PT Aug 17, 2021 09:37
[2021-08-17] MEDS: CALCIUM CARB + VIT D 600 MG (CALCARB + D) TAB PO SCH (10:07)
[2021-08-17] MEDS: SERTRALINE 100 MG (ZOLOFT) TAB PO SCH (10:07)
[2021-08-17] MEDS: IRON POLYSAC 150 MG CAP (NIFEREX) PO SCH ×2 (10:07→21:15)
[2021-08-17] MEDS: VITAMIN D3 25 MCG (1,000 UNITS) TABLET PO SCH (10:07)
[2021-08-17] MEDS: APIXABAN 5 MG (ELIQUIS) TABLET PO SCH ×2 (10:07→21:11)
[2021-08-17] MEDS: SERTRALINE 50 MG (ZOLOFT) TABLET PO SCH (10:08)
[2021-08-17] MEDS: CYANOCOBALAMIN 1,000 MCG (VITAMIN B-12) TABLET PO SCH (10:08)
[2021-08-17] MEDS: KCL 10 MEQ TAB (MICRO K) PO SCH ×2 (10:08→21:11)
[2021-08-17] MEDS: GABAPENTIN 100 MG (NEURONTIN) CAP PO SCH ×2 (10:08→21:11)
[2021-08-17] MEDS: lisINopril 10 MG (PRINIVIL) TABLET PO SCH (10:08)
[2021-08-17] MEDS: polyethylene glycoL POWDER 17 GM (MIRALAX) PACK PO SCH ×2 (10:09→21:10)
--- NOTE | 2021-08-17 11:30 | Occupational Ther Daily Note ---
OT Current Status-Daily Note Subjective Pt in recliner, attempting to pay bills and write checks. Agreeable to OT Tx. ADL-Treatment Therapy Code Descriptions/Definitions Functional [place] Measure: 0=Not Assessed/NA 4=Minimal Assistance 1=Total Assistance 5=Supervision or Setup 2=Maximal Assistance 6=Modified [place] 3=Moderate Assistance 7=Complete IndependenceSCALE: Activities may be completed with or without assistive devices. 6-Mlkwxsxyog-oobuirq completes the activity by him/herself with no assistance from a helper. 5-Set-up or Clean-up Assistance-helper sets up or cleans up; patient completes activity. [place] assists only prior to or following the activity. 4-Supervision or Touching Assistance-helper provides verbal cues and/or touching/steadying and/or contact guard assistance as patient completes activity. Assistance may be provided throughout the activity or intermittently. 3-Partial/Moderate Assistance-helper does LESS THAN HALF the effort. [place] lifts, holds or supports trunk or limbs, but provides less than half the effort. 2-Substantial/Maximal Assistance-helper does MORE THAN HALF the effort. [place] lifts or holds trunk or limbs and provides more than half the effort. 2-Wqkbtavth-wtzwip does ALL the effort. Patient does none of the effort to complete the activity. Or, the assistance of 2 or more helpers is required for the patient to complete the activity. If activity was not attempted, code reason: 7-Patient Refused. 9-Not Applicable-not attempted and the patient did not perform the activity before the current illness, exacerbation or injury. 10-Not Attempted due to Environmental Limitations-(lack of equipment, weather restraints, etc.). 88-Not Attempted due to Medical Conditions or Safety Concerns. Eating (QC): 5 (set up to take a drink of water.) Other Treatment Pt in recliner, at bedside. Pt agreeable to OT Tx, she is attempting to write checks in order to pay her bills. OT assisted pt with finding a blank check, and assisted her with locating her bill so she can make the check out to the right company. Pt then able to fill out the check, OT assisted with reading the account number to the pt as she filled out the check. OT assisted pt with placing the bill and check in an envelope on her tray table. X-ray present in order to take image of her knee. OT assisted pt with positioning for the xray. Post tx, pt in recliner, call light in reach and all needs met. Education OT Patient Education: Correct positioning, Modified ADL techniques, Progress toward Goal/Update tx plan, Purpose of tx/functional activities, Rehab process Teaching Recipient: Patient Teaching Methods: Discussion Response to Teaching: Verbalize Understanding OT Fci Goals Fci Goals Time Frame: Aug 27, 2021 Eating (QC): 6 Oral Hygiene (QC): 6 Toileting Hygiene (QC): 4 Shower/Bathe Self (QC): 4 Upper Body Dressing (QC): 5 Lower Body Dressing (QC): 4 On/Off Footwear (QC): 3 Additional Goals: 1-Demonstrate ADL Tasks, 2-Verbalize Understanding, 3- ImproveStrength/Tawanna 1=Demonstrate adherence to instructed precautions during ADL tasks. 2=Patient will verbalize/demonstrate understanding of assistive devices/modifications for ADL. 3=Patient will improve strength/tolerance for activity to enable patient to perform ADL's. OT Education/Plan Problem List/Assessment Assessment: Decreased Activ Tolerance, Decreased UE Strength, Dependent Transfers, Impaired Funct Balance, Impaired I ADL's, Impaired Self-Care Skills Pt would benefit from skilled OT services in order to increase BUE strength and activity tolerance, increase independence and safety with ADLs, and education on AE for LE dressing due to hip precautions. Discharge Recommendations Plan/Recommendations: Continue POC Treatment Plan/Plan of Care Patient would benefit from OT for education, treatment and training to promote independence in ADL's, mobility, safety and/or upper extremity function for ADL's. Plan of Care: ADL Retraining, Functional Mobility, UE Funct Exercise/Act Treatment Duration: Aug 27, 2021 Frequency: 3 times per week (3-5 times a week) Estimated Hrs Per Day: .25 hour per day 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: Fair Time/GCodes Start Time: 10:50 Stop Time: 11:15 Total Time Billed (hr/min): 25 Billed Treatment Time 1, ADL 2 JUSTIN GALVEZ OT Aug 17, 2021 11:30
--- NOTE | 2021-08-17 13:16 | Diagnostic Imaging Report ---
INDICATION: Injury. Hip fracture. Right knee pain. FINDINGS: Two views of the right knee show no fracture, dislocation or other acute bony abnormality. There is mild narrowing of the patellofemoral compartment. There is chondrocalcinosis. No significant joint effusion is seen. IMPRESSION: There are mild degenerative changes present with no acute abnormality seen. Dictated by: Dictated on workstation # [id number]
[2021-08-17 16:00] VITALS: BP 137/68
[2021-08-17] MEDS: HYDROcodone/APAP 5 MG/325 MG (LORTAB) TAB PO PRN ×2 (17:36→21:18)
[2021-08-18 00:05] VITALS: BP 103/61
[2021-08-18] MEDS: RT-ALBUTEROL SULF 2.5 MG/3 ML PRE-MIX VIAL INH SCH ×2 (02:39→08:33)
[2021-08-18 07:46] VITALS: BP 158/73
[2021-08-18] MEDS ORDERED: ACET325T49 PO (07:51)
[2021-08-18] MEDS ORDERED: APIX5TAB PO (07:51)
[2021-08-18] MEDS ORDERED: ACHD5005 PO (07:51)
[2021-08-18] MEDS ORDERED: POLY17PO54 PO (07:51)
--- NOTE | 2021-08-18 08:52 | Cardiology Progress Note ---
Subjective Date Seen by Provider: Aug 18, 2021 Time Seen by Provider: 08:50 Subjective/Events-last exam Patient is sitting up in bed, denies any chest pain, complaining of knee pain. Objective-Cardiology Exam Last Set of Vital Signs Vital Signs 08/12/21 08/16/21 08/18/21 08/18/21 23:59 12:31 07:46 08:33 Temp 35.9 Pulse 68 Resp 20 B/P (MAP) 158/73 (101) Pulse Ox 95 O2 Delivery Room Air O2 Flow Rate 1.00 FiO2 45 I&O Intake and Output 08/18/21 00:00 Intake Total 1120 ml Output Total 100 ml Balance 1020 ml Intake Oral 1120 ml Output Urine Total 100 ml # Voids 5 # Bowel Movements 1 General: Alert, Oriented X3, Cooperative, No Acute Distress HEENT: Atraumatic, PERRLA Neck: Supple, No JVD, No Thyromegaly Lungs: Other (bibasilar rales) Heart: Other (irregularly irregular) Abdomen: Normal Bowel Sounds, Soft, No Tenderness, No Hepatosplenomegaly, No Masses Extremities: No Clubbing, No Edema, Normal Pulses, No Tenderness/Swelling Skin: No Rashes, No Significant Lesion Neuro: Normal Speech Psych/Mental Status: Mental Status NL A/P-Cardiology Admission Diagnosis Left hip fracture CAD PAF HTN Assessment/Plan Left hip fracture secondary to nonsyncopal fall, status post hip surgery, recovering slowly, receiving physical therapy. Status post acute respiratory insufficiency, transferred to the intensive care unit, currently feeling better, breathing better. Coronary artery disease, history of multiple interventions. LHC done Jun 28, 2020 revealing total occlusion of the circumflex artery with successful balloon angioplasty and 50 percent residual stenosis, failed attempt to place stent d/t calcification. Severe stenosis in the stent in the LAD, underwent balloon angioplasty with mild to moderate residual stenosis, known to have Synergy 3.5x28 and 3.0x16mm, RCA has multiple stents Synergy 4.0 x38 and 3.5 x 38 that were patent with sm vessel dz distally. Patient had NSTEMI and underwent LHC on 10/29/20 with stenting to the circumflex artery using [place] 2.5x15mm expanded to 2.6mm with excellent results. CHF, chronic compensated LV systolic dysfunction, ischemic cardiomyopathy, EF 35-40%. Restarted on JAGDEEP-I and beta blockers during hospitalization earlier this month. Continue to monitor. Paroxysmal atrial fibrillation, went back to atrial fibrillation, rate controlled, maintained on Cardizem CD 180 mg, Coreg 12.5 mg, Eliquis, continue to monitor. [id number] score of score of 5, changed for Coumadin to Eliquis 5 mg BID S/p Medtronic dual chamber PPM in [address] Pirece at [facility]. Most recent interrogation done in our office Carotid artery stenosis, hx of right carotid stenting, Hx CVA unknown date Poor memory GERD/PUD Supervisory-Addendum Brief Supervisory Addendum Participated in pt care: history, MDM, physical Personally performed: exam, history, MDM Care discussed with: JERILYN Results interpretation: Verified all documentation Notes: Patient is being discharged today Management plan was discussed in detail with Susan Buchanan agree with the current note SUSAN LOVE Aug 18, 2021 08:52 MACARIO CARO MD Aug 18, 2021 14:54
[2021-08-18] MEDS: polyethylene glycoL POWDER 17 GM (MIRALAX) PACK PO SCH (09:31)
[2021-08-18] MEDS: SERTRALINE 50 MG (ZOLOFT) TABLET PO SCH (09:32)
[2021-08-18] MEDS: KCL 10 MEQ TAB (MICRO K) PO SCH (09:32)
[2021-08-18] MEDS: SERTRALINE 100 MG (ZOLOFT) TAB PO SCH (09:32)
[2021-08-18] MEDS: VITAMIN D3 25 MCG (1,000 UNITS) TABLET PO SCH (09:32)
[2021-08-18] MEDS: IRON POLYSAC 150 MG CAP (NIFEREX) PO SCH (09:32)
[2021-08-18] MEDS: CYANOCOBALAMIN 1,000 MCG (VITAMIN B-12) TABLET PO SCH (09:32)
[2021-08-18] MEDS: CALCIUM CARB + VIT D 600 MG (CALCARB + D) TAB PO SCH (09:32)
[2021-08-18] MEDS: lisINopril 10 MG (PRINIVIL) TABLET PO SCH (09:32)
[2021-08-18] MEDS: APIXABAN 5 MG (ELIQUIS) TABLET PO SCH (09:32)
[2021-08-18] MEDS: GABAPENTIN 100 MG (NEURONTIN) CAP PO SCH (09:32)
[2021-08-18] MEDS: HYDROcodone/APAP 5 MG/325 MG (LORTAB) TAB PO PRN (09:36)
--- NOTE | 2021-08-18 10:09 | Occupational Ther Daily Note ---
OT Current Status-Daily Note Subjective Pt alert, sitting in recliner when OT entered. Pt agreed to therapy. No c/o pain reported at this time. Mental Status/Objective Patient Orientation: Person, Place, Time, Situation Attachments: IV ADL-Treatment Pt requested help peeling containers due to decreased hand strength. OT slightly peeled open container, pt was able to complete task. Pt demonstrated good hand to mouth throughout feeding task. Pt requested help to cut toast. OT stated, "I want to see you do yourself first." Pt was able to cut food independently. Pt required extra encourgament to stay on task throughout treatment due to pt talking. During session, vp digital marketing social media and crm came in room and stated pt will be leaving today. After session, pt sitting in recliner, finishing eating her breakfast. Call light in reach and all needs met. Therapy Code Descriptions/Definitions Functional [place] Measure: 0=Not Assessed/NA 4=Minimal Assistance 1=Total Assistance 5=Supervision or Setup 2=Maximal Assistance 6=Modified [place] 3=Moderate Assistance 7=Complete IndependenceSCALE: Activities may be completed with or without assistive devices. 1-Ainysunxho-jugityu completes the activity by him/herself with no assistance from a helper. 5-Set-up or Clean-up Assistance-helper sets up or cleans up; patient completes activity. [place] assists only prior to or following the activity. 4-Supervision or Touching Assistance-helper provides verbal cues and/or touching/steadying and/or contact guard assistance as patient completes activity. Assistance may be provided throughout the activity or intermittently. 3-Partial/Moderate Assistance-helper does LESS THAN HALF the effort. [place] lif ts, holds or supports trunk or limbs, but provides less than half the effort. 2-Substantial/Maximal Assistance-helper does MORE THAN HALF the effort. [place] lifts or holds trunk or limbs and provides more than half the effort. 5-[place]-vbinvs does ALL the effort. Patient does none of the effort to complete the activity. Or, the assistance of 2 or more helpers is required for the patient to complete the activity. If activity was not attempted, code reason: 7-Patient Refused. 9-Not Applicable-not attempted and the patient did not perform the activity before the current illness, exacerbation or injury. 10-Not Attempted due to Environmental Limitations-(lack of equipment, weather restraints, etc.). 88-Not Attempted due to Medical Conditions or Safety Concerns. Education OT Patient Education: Progress toward Goal/Update tx plan, Purpose of tx/fun ctional activities Teaching Recipient: Patient Teaching Methods: Demonstration, Discussion Response to Teaching: Verbalize Understanding, Return Demonstration OT Physician Credentialing Specialist Goals Physician Credentialing Specialist Goals Time Frame: Aug 27, 2021 Eating (QC): 6 Oral Hygiene (QC): 6 Toileting Hygiene (QC): 4 Shower/Bathe Self (QC): 4 Upper Body Dressing (QC): 5 Lower Body Dressing (QC): 4 On/Off Footwear (QC): 3 Additional Goals: 1-Demonstrate ADL Tasks, 2-Verbalize Understanding, 3- ImproveStrength/Tawanna 1=Demonstrate adherence to instructed precautions during ADL tasks. 2=Patient will verbalize/demonstrate understanding of assistive devices/modifications for ADL. 3=Patient will improve strength/tolerance for activity to enable patient to perform ADL's. OT Education/Plan Problem List/Assessment Assessment: Decreased UE Strength, Impaired Coordination, Impaired Funct Balance, Impaired I ADL's, Impaired Self-Care Skills Pt would benefit from skilled OT services in order to increase BUE strength and activity tolerance, increase independence and safety with ADLs, and education on AE for LE dressing due to hip precautions. Discharge Recommendations Plan/Recommendations: Continue POC Treatment Plan/Plan of Care Patient would benefit from OT for education, treatment and training to promote independence in ADL's, mobility, safety and/or upper extremity function for ADL's. Plan of Care: ADL Retraining, Functional Mobility, UE Funct Exercise/Act Treatment Duration: Aug 27, 2021 Frequency: 3 times per week (3-5 times a week) Estimated Hrs Per Day: .25 hour per day 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: Fair Time/GCodes Start Time: :27 Stop Time: 09:45 Total Time Billed (hr/min): 18 Billed Treatment Time 1 visit - ADL 1 (18 mins) ROSA M BORDEN Aug 18, 2021 10:09
--- NOTE | 2021-08-18 10:26 | Discharge Inst-Skilled Nursing ---
Discharge Inst-Skilled NF Patient Instructions Patient Problems: Left hip fracture s/p repair Atrial fibrillation Coronary artery disease Chronic systolic CHF Consult/Follow Up/Orders Skilled NF Admit to: [facility] Certifications SNF I certify that SNF services are required to be given on an inpatient basis because of the above named patient's need for senior care care on a continuing basis for the conditions(s) for which he/she was receiving inpatient hospital services prior to his/her transfer to the SNF. Nursing Home Facility Order: Nursing Services, Rn Psych-Evaluate & Treat, Physical Therapy-Evaluate & Treat Oxygen Delivery Method: Room Air Discharge Diet: Cardiac Diet Daily Activity as Tolerated: Yes Discharge Medications New, Converted or Re-Newed RX: Transmitted to Pharmacy New Medications: Acetaminophen (Acetaminophen) 325 Mg Tablet 650 MG PO Q4H PRN for PAIN-MILD (1-4), #60 TAB 0 Refills Apixaban (Eliquis) 5 Mg Tablet 5 MG PO BID, #60 TAB 0 Refills Hydrocodone Bit/Acetaminophen (HYDROcodone/APAP 5 MG/325 MG TAB) 1 Tab Tab 1 EA PO Q4H PRN for PAIN-MODERATE (5-7), #15 TAB 0 Refills Polyethylene Glycol 3350 (Polyethylene Glycol 3350) 17 Gm Powd.pack 17 GM PO BID, #14 EACH 0 Refills Continued Medications: Atorvastatin Calcium (Atorvastatin Calcium) 40 Mg Tablet 40 MG PO HS, TAB Calcium Carbonate/Vitamin D3 (Calcium + Vitamin D Tablet) 1 Each Tablet 1 EACH PO DAILY, TAB Carvedilol (Carvedilol) 12.5 Mg Tablet 12.5 MG PO BID WITH MEALS, TAB Cholecalciferol (Vitamin D3) (Vitamin D3) 50 Mcg Capsule 50 MCG PO DAILY, CAP Clopidogrel Bisulfate (Clopidogrel) 75 Mg Tablet 75 MG PO DAILY, TAB Cyanocobalamin (Vitamin B-12) (Vitamin B-12) 500 Mcg Tablet 500 MCG PO DAILY, TAB Diltiazem HCl (Diltiazem 24Hr ER) 180 Mg Cap.er.24h 180 MG PO DAILY, TAB Fexofenadine HCl (Fexofenadine HCl) 60 Mg Tablet 60 MG PO DAILY PRN for ALLERGY SYMPTOMS, TAB Furosemide (Furosemide) 20 Mg Tablet 20 MG PO DAILY PRN for FLUID RETENTION, TAB Gabapentin (Gabapentin) 100 Mg Capsule 100 MG PO BID, CAP Iron Polysaccharide Complex (Ferrex 150) 150 Mg Capsule 150 MG PO BID, CAP Lisinopril (Lisinopril) 10 Mg Tablet 10 MG PO DAILY, TAB Potassium Chloride (Klor-Con 10) 10 Meq Tablet.er 10 MEQ PO BID, TAB Sertraline HCl (Sertraline HCl) 50 Mg Tablet 50 MG PO DAILY, TAB TAKES 50MG +100MG TO EQUAL 150MG Sertraline HCl (Sertraline HCl) 100 Mg Tablet 100 MG PO DAILY, TAB TAKES 50MG +100MG TO EQUAL 150MG Discontinued Medications: Warfarin Sodium (Warfarin Sodium) 1 Mg Tablet 1.5 MG PO MON,MON@HS, TAB TAKES 1 & (1MG) TAB Warfarin Sodium (Warfarin Sodium) 1 Mg Tablet 1 MG PO ,,MON,MON,SAT@HS, TAB Jose Ramon Mesa Aug 18, 2021 10:24 JOSE RAMON MESA MD Aug 18, 2021 10:26
--- NOTE | 2021-08-18 10:43 | Physical Therapy Daily Note ---
PT Daily Note-Current Subjective Pt reports that her R knee pain 07/04 this date. Pt in bed upon arrival and agrees to PT. Pain Numeric Pain Scale: 10-Worst Possible Pain Location: Right Location Body Site: Knee Mental Status Patient Orientation: Normal For Age Transfers SCALE: Activities may be completed with or without assistive devices. 1-Cfjwfittvr-siqxpho completes the activity by him/herself with no assistance from a helper. 5-Set-up or Clean-up Assistance-helper sets up or cleans up; patient completes activity. [place] assists only prior to or following the activity. 4-Supervision or Touching Assistance-helper provides verbal cues and/or touching/steadying and/or contact guard assistance as patient completes activity. Assistance may be provided throughout the activity or intermittently. 3-Partial/Moderate Assistance-helper does LESS THAN HALF the effort. [place] lifts, holds or supports trunk or limbs, but provides less than half the effort. 2-Substantial/Maximal Assistance-helper does MORE THAN HALF the effort. [place] lifts or holds trunk or limbs and provides more than half the effort. 1-Ljezxlhea-elixfa does ALL the effort. Patient does none of the effort to complete the activity. Or, the assistance of 2 or more helpers is required for the patient to complete the activity. If activity was not attempted, code reason: 7-Patient Refused. 9-Not Applicable-not attempted and the patient did not perform the activity before the current illness, exacerbation or injury. 10-Not Attempted due to Environmental Limitations-(lack of equipment, weather restraints, etc.). 88-Not Attempted due to Medical Conditions or Safety Concerns. Roll Left & Right (QC): 2 Sit to Stand (QC): 1 Toilet Transfer (QC): 1 Weight Bearing Right Lower Extremity: Right Full Weight Bearing Left Lower Extremity: Left Weight Bearing/Tolerated Gait Training Does the Patient Walk?: No and Walking Goal IS indicated Treatments Pt in bed upon arrival and reports she had an accident in bed. Pt requires maxA to dependent on all TFs. Perform sit to stand and TFs to beside commode. Pt unable to clean herself after accident. After using commode pt TFs to recliner. PT departs and nurse aide present. All needs met and call light nearby. Assessment Current Status: Poor Progress Pt not able to stand on her own and requires maxA to dependent on all TFs. Pt swelling in R knee noted as compared to L knee. Call light nearby all needs met as PT departs and nursing informatics clinical analyst present. 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 Time Frame: Sep 18, 2021 Roll Left & Right (QC): 4 Sit to Lying (QC): 4 Lying-Sitting on Side/Bed(QC): 4 Sit to Stand (QC): 4 Chair/Fxw-kt-Dqhlm Xfer(QC): 4 Toilet Transfer (QC): 4 Walk 10 feet (QC): 4 Walk 50ft with 2 Turns (QC): 4 Walk 150 ft (QC): 4 PT Plan Problem List Problem List: Activity Tolerance, Functional Strength, Safety Treatment/Plan Treatment Plan: Continue Plan of Care Treatment Plan: Bed Mobility, Education, Functional Activity [place], Functional Strength, Gait, Safety, Therapeutic Exercise, Transfers Treatment Duration: Sep 18, 2021 Frequency: 6 times per week (due to inability to tolerate extensive therapy.) Estimated Hrs Per Day: .5 hour per day Patient and/or Family Agrees t: Yes Safety Risks/Education Patient Education: Transfer Techniques, Steps, Reviewed Precautions Teaching Recipient: Patient Teaching Methods: Discussion Response to Teaching: Return Demonstration Time/GCodes Time In: 855 Time Out: 910 Total Billed Treatment Time: 15 Total Billed Treatment 1 visit, FA 15 min MEGHAN GALDAMEZ LENS GENERATOR Aug 18, 2021 10:43
== END 2021-08-18 13:10 | DRG 521 ==
LOC: EDUNIT# 16:29 → ER 16:30 → 4TH 18:53 → ICU 08-11 04:08 → 4TH 08-13 11:57
PROVIDERS: ADMIT Internal Medicine; ATTEND Family Medicine
PROC: 5A09357 Assistance with Respiratory Ventilation, Less than 24 Consecutive Hours, Continuous Positive Airway Pressure (ICD-10-PCS; 2021-08-12)
PROC: 0SRS0JZ Replacement of Left Hip Joint, Femoral Surface with Synthetic Substitute, Open Approach (ICD-10-PCS; principal; 2021-08-12 14:17)
DX: S72.012A Unspecified intracapsular fracture of left femur, initial encounter for closed fracture (principal); J96.00 Acute respiratory failure, unspecified whether with hypoxia or hypercapnia; N39.0 Urinary tract infection, site not specified; I42.9 Cardiomyopathy, unspecified; I50.22 Chronic systolic (congestive) heart failure; Z79.01 Long term (current) use of anticoagulants; I25.10 Atherosclerotic heart disease of native coronary artery without angina pectoris; I25.2 Old myocardial infarction; Z95.5 Presence of coronary angioplasty implant and graft; E78.00 Pure hypercholesterolemia, unspecified; Z86.73 Personal history of transient ischemic attack (TIA), and cerebral infarction without residual deficits; M19.90 Unspecified osteoarthritis, unspecified site; I73.9 Peripheral vascular disease, unspecified; W18.30XA Fall on same level, unspecified, initial encounter; Z95.0 Presence of cardiac pacemaker; J44.9 Chronic obstructive pulmonary disease, unspecified; F41.9 Anxiety disorder, unspecified; R53.81 Other malaise; I25.5 Ischemic cardiomyopathy; I65.29 Occlusion and stenosis of unspecified carotid artery; B96.1 Klebsiella pneumoniae [K. pneumoniae] as the cause of diseases classified elsewhere; I48.0 Paroxysmal atrial fibrillation; E78.2 Mixed hyperlipidemia; I11.0 Hypertensive heart disease with heart failure; K21.9 Gastro-esophageal reflux disease without esophagitis; K27.9 Peptic ulcer, site unspecified, unspecified as acute or chronic, without hemorrhage or perforation; Z20.822 Contact with and (suspected) exposure to COVID-19
CPT/HCPCS: 36415; 71045; 72170; 73560; 80048; 80053; 80061; 81000; 82805; 83605; 83735; 84100; 84484; 85007; 85025; 85027; 85610; 85730; 87077; 87081; 87088; 87186; 87636; 88305; 88311; 93005; 94640; 94660; 94760; 96374; 96375

== ENCOUNTER → 2021-08-26 | Outpatient (CLI) | payer MEDICARE ==
[~2021-08-26] MED LIST changes: +ACHD5005 PO; +APIX5TAB PO; +ATOR40TA70 PO; +CALC-140 PO; +CLOP75TA28 PO; +CYAN500T8 PO; +DILT180C85 PO; +FEXO-45 PO; +FURO20TA4 PO; +GABA-486 PO; +IRON150C3 PO; +LISI10TA25 PO; +POLY17PO54 PO; +POTA-160 PO; +SERT-413 PO; +SERT-414 PO
== END ==
LOC: ORTHO 11:47
PROVIDERS: ATTEND Orthopaedic Surgery
DX: S72.002D Fracture of unspecified part of neck of left femur, subsequent encounter for closed fracture with routine healing (principal); X58.XXXD Exposure to other specified factors, subsequent encounter

== ENCOUNTER → 2021-09-23 | Outpatient (CLI) | payer MEDICARE ==
--- NOTE | 2021-09-23 09:57 | Diagnostic Imaging Report ---
EXAMINATION: Pelvis 937h. INDICATION: Postoperative follow up A single AP view of the pelvis was obtained. As noted on the prior exam of 08/12/2021. There is a total hip prosthesis in place on the left. The prosthetic components appear to be in good position. The gas about the prosthesis and the skin ute seen previously are no longer evident. There is no fracture or acute bony abnormality appreciated. There is moderately severe degenerative disease of the right hip joint. These degenerative changes are no different than on the prior exam. There is mild symmetrical sclerosis of the sacral iliac joints. IMPRESSION: Stable postoperative left hip. There is no acute bony abnormality appreciated. Dictated by: Dictated on workstation # [id number]
== END ==
LOC: ORTHO 09:19
PROVIDERS: ATTEND Orthopaedic Surgery
DX: Z96.642 Presence of left artificial hip joint (principal)
CPT/HCPCS: 72170

== ENCOUNTER → 2021-09-24 | Outpatient (CLI) | payer MEDICARE ==
--- NOTE | 2021-09-24 10:40 | Diagnostic Imaging Report ---
INDICATION: Constipation KUB 9:58 AM There are postoperative changes from left hip arthroplasty. Lung bases are clear. Bowel gas pattern is normal. There is mild scoliosis. There does not appear to be excessive fecal retention in the colon. IMPRESSION: No acute abnormalities in the abdomen Dictated by: Dictated on workstation # [id number]
--- NOTE | 2021-09-24 10:45 | Diagnostic Imaging Report ---
INDICATION: Low back pain Lumbar spine AP and lateral views of the lumbar spine show mild scoliotic curvature convex to the left. Vertebral alignment is normal. There are no compression fractures. There is disc space narrowing at L3-L4, L4-L5 and L5-S1. IMPRESSION: Scoliosis. Degenerative disc changes lower lumbar spine. No acute abnormality seen. Dictated by: Dictated on workstation # [id number]
== END ==
LOC: RAD FS 09:42
PROVIDERS: ATTEND Family Medicine
DX: M51.36 Other intervertebral disc degeneration, lumbar region (principal); M41.86 Other forms of scoliosis, lumbar region; K59.00 Constipation, unspecified
CPT/HCPCS: 72100; 74018

== ENCOUNTER 2021-09-29 09:52 | Emergency (ER) | payer MEDICARE ==
[~2021-09-29] VITALS: Ht 160 cm; Wt 58.9 kg
[2021-09-29 11:04] LABS: BASOPHILS % (AUTO) 0 % (0-10); EOSINOPHILS # (AUTO) 0.2 10^3/uL (0.0-0.3); EOSINOPHILS % (AUTO) 2 % (0-10); HEMATOCRIT 41 % (35-52); LYMPHOCYTES # (AUTO) 1.1 10^3/uL (1.0-4.0); LYMPHOCYTES % (AUTO) 14 % (12-44); MEAN CORPUSCULAR HEMOGLOBIN 28 pg (25-34); MEAN CORPUSCULAR HGB CONC 32 g/dL (32-36); MEAN CORPUSCULAR VOLUME 88 fL (80-99); MEAN PLATELET VOLUME 9.1 fL (9.0-12.2); MONOCYTES # (AUTO) 0.5 10^3/uL (0.0-1.0); MONOCYTES % (AUTO) 7 % (0-12); NEUTROPHILS % (AUTO) 77 % (42-75); PLATELET COUNT 281 10^3/uL (130-400); WHITE BLOOD COUNT 7.8 10^3/uL (4.3-11.0)
[2021-09-29 11:21] LABS: POTASSIUM 4.1 MMOL/L (3.6-5.0)
--- NOTE | 2021-09-29 11:21 | ED General ---
General Chief Complaint: Abdominal/GI Problems Stated Complaint: ABD PAIN Nursing Triage Note: C/O ABDOMINAL PAIN X ONE WEEK. [facility] WEEK [facility] WAS THERE FOR A LEFT FRACTURED HIP FOR REHAB. TODAY STATES SHE CALLED THE AMBULANCE BECAUSE HER ABDOMINAL PAIN WILL NOT STOP AND SHE HAS TAKEN TWO HYDROCODONE AT 0800 THIS AM AND SO NOW HER PAIN IS NOT TOO BAD. PATIENT DESCRIBES MANY AILMENTS AND EVEN DISCUSSES HOW SHE HAS HAD AN INCREASE IN WORSENING MEMORY. BUT STATES SHE IS MAINLY IS CONCERNED ABOUT HER ABDOMINAL PAIN. Source of Information: Patient Exam Limitations: No Limitations History of Present Illness Date Seen by Provider: Sep 29, 2021 Time Seen by Provider: 10:00 Initial Comments Patient is an 81-year-old female who presents to the emergency department today by ambulance with a chief complaint of reportedly abdominal pain. However, the patient tells me that she is having back pain. She states she has had it for "years". She took 2 hydrocodone this morning and states she is currently pain- free. No recent trauma, falls. No infectious complaints. No problems with bowel or bladder although she states she has been urinating "every time I get up", this implies chronic incontinence. She otherwise takes Tylenol for pain. She recently got discharged from our [facility] rehab after a left hip fracture. Patient at one point tells us that she called the ambulance because she thought she been left home alone. She subsequently found her to sleep in his bedroom. No headache, upper respiratory congestion, cough, shortness of breath. No nausea or vomiting. All other review of systems reviewed and negative except as stated. Timing/Duration: Gone Now Severity: Mild Allergies and Home Medications Allergies Coded Allergies: Penicillins (Unverified Allergy, Unknown, 11/17/19) Patient Home Medication List Home Medication List Reviewed: Yes Acetaminophen (Acetaminophen) 325 Mg Tablet, 650 MG PO Q4H PRN for PAIN-MILD (1- 4) Prescribed by: JOSE RAMON PETER on 08/18/21 0751 Apixaban (Eliquis) 5 Mg Tablet, 5 MG PO BID Prescribed by: JOSE RAMON PETER on 08/18/21 0751 Atorvastatin Calcium (Atorvastatin Calcium) 40 Mg Tablet, 40 MG PO HS, (Reported) Entered as Reported by: CANDELARIO VASQUEZ on 08/10/21 1409 Calcium Carbonate/Vitamin D3 (Calcium + Vitamin D Tablet) 1 Each Tablet, 1 EACH PO DAILY, (Reported) Entered as Reported by: CANDELARIO VASQUEZ on 08/10/21 140 Carvedilol (Carvedilol) 12.5 Mg Tablet, 12.5 MG PO BID WITH MEALS, (Reported) Entered as Reported by: CANDELARIO VASQUEZ on 10/26/20 1211 Cholecalciferol (Vitamin D3) (Vitamin D3) 50 Mcg Capsule, 50 MCG PO DAILY, (Reported) Entered as Reported by: CANDELARIO VASQUEZ on 02/24/20 1029 Clopidogrel Bisulfate (Clopidogrel) 75 Mg Tablet, 75 MG PO DAILY, (Reported) Entered as Reported by: CANDELARIO VASQUEZ on 08/10/21 140 Cyanocobalamin (Vitamin B-12) (Vitamin B-12) 500 Mcg Tablet, 500 MCG PO DAILY, (Reported) Entered as Reported by: CANDELARIO VASQUEZ on 08/10/21 140 Diltiazem HCl (Diltiazem 24Hr ER) 180 Mg Cap.er.24h, 180 MG PO DAILY, (Reported) Entered as Reported by: CANDELARIO VASQUEZ on 08/10/21 140 Fexofenadine HCl (Fexofenadine HCl) 60 Mg Tablet, 60 MG PO DAILY PRN for ALLERGY SYMPTOMS, (Reported) Entered as Reported by: CANDELARIO VASQUEZ on 08/10/21 140 Furosemide (Furosemide) 20 Mg Tablet, 20 MG PO DAILY PRN for FLUID RETENTION, (Reported) Entered as Reported by: CANDELARIO VASQUEZ on 08/10/21 140 Gabapentin (Gabapentin) 100 Mg Capsule, 100 MG PO BID, (Reported) Entered as Reported by: CANDELARIO VASUQEZ on 08/10/21 140 Hydrocodone Bit/Acetaminophen (HYDROcodone/APAP 5 MG/325 MG TAB) 1 Tab Tab, 1 EA PO Q4H PRN for PAIN-MODERATE (5-7) Prescribed by: JOSE RAMON PETER on 08/18/21 0752 Iron Polysaccharide Complex (Ferrex 150) 150 Mg Capsule, 150 MG PO BID, (Reported) Entered as Reported by: CANDELARIO VASQUEZ on 08/10/21 140 Lisinopril (Lisinopril) 10 Mg Tablet, 10 MG PO DAILY, (Reported) Entered as Reported by: CANDELARIO VASQUEZ on 08/10/21 1409 Polyethylene Glycol 3350 (Polyethylene Glycol 3350) 17 Gm Powd.pack, 17 GM PO BID Prescribed by: JOSE RAMON PETER on 08/18/21 0751 Potassium Chloride (Klor-Con 10) 10 Meq Tablet.er, 10 MEQ PO BID, (Reported) Entered as Reported by: CANDELARIO VASQUEZ on 08/10/21 140 Sertraline HCl (Sertraline HCl) 50 Mg Tablet, 50 MG PO DAILY, (Reported) Entered as Reported by: CANDELARIO VASQUEZ on 08/10/21 140 Sertraline HCl (Sertraline HCl) 100 Mg Tablet, 100 MG PO DAILY, (Reported) Entered as Reported by: CANDELARIO VASQUEZ on 08/10/211408 Review of Systems Review of Systems Constitutional: see HPI EENTM: no symptoms reported Respiratory: no symptoms reported Cardiovascular: no symptoms reported Gastrointestinal: other (mild lower abdominal tenderness without rebound or guarding) Genitourinary: no symptoms reported : No Musculoskeletal: back pain Skin: no symptoms reported All Other Systems Reviewed Negative Unless Noted: Yes Past Jdfycyf-Vsotfx-Wmjvur Hx Immunizations Up To Date Tetanus Booster (TDap): Unknown PED Vaccines UTD: Yes First/Initial COVID19 Vaccinat: 2020 Second COVID19 Vaccination Rishabh: 2020 Seasonal Allergies Seasonal Allergies: No Past Medical History Surgery/Hospitalization HX: Heart stents Pace maker Surgeries: Yes Adenoidectomy, Cardiac, Coronary Stent, Pacemaker, Vascular Surgery Respiratory: Yes (CHRONIC COUGH; PNEUMONIA X1; BRONCHITIS ) COPD Cardiac: Yes (PACEMAKER 2017;CARDIAC STENTS X 4; RIGHT CAROTID STENT X 1;ANGIOPLASTIES) Atrial Fibrillation, High Cholesterol, Hypertension Neurological: Yes (CVA 2016--NO RESIDUAL EFFECTS; STATES ONLY SYMPTOM WAS HEADACHE. 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 PLUS ANGIOPLASTIES. -CARDIAC CATH 03/03/20-BY DR. LEAHY CONCLUSIONS: Successful balloon angioplasty of 99% proximal stenosis of the second obtuse marginal with reduction of stenosis to approximately 50% and improvement of flow from CODY 2 to CODY 3. -CARDIAC CATH 06/29/[address] LEAHY- CONCLUSIONS: 1. Coronary artery disease as detailed above. The left circumflex artery had a near total occlusion that was reduced to less than 50% with balloon angioplasty. The left anterior descending artery is known to have Synergy 3.5 x 28 and 3.0 x 16 mm stents that were exhibiting 90% stenosis. This was reduced to less than 50% with balloon angioplasty. The right coronary artery is known to have Synergy 4.0 x 38 and 3.5 x 38 stents that are patent. All vessels have diffuse moderate disease. 2. Ischemic cardiomyopathy with apical akinesis to dyskinesis and left ventricular ejection fraction approximately 40%. 3. Elevated left ventricular end-diastolic pressure. -RIGHT CAROTID STENT X 1 -PACEMAKER 2016 ADDITIONAL PMH: -MULTIPLE NSTEMI'S -ADMITTED 06/28/20-07/01/20 FOR NSTEMI -ADMITTED 07/13/20- FOR SEPSIS AND PNEUMONIA Physical Exam Vital Signs Vital Signs - First Documented 09/29/21 09/29/21 10:05 10:48 Temp 36.6 Pulse 75 Resp 18 B/P (MAP) 141/77 (98) Pulse Ox 94 O2 Delivery Room Air Capillary Refill : Less Than 3 Seconds Height, Weight, BMI Height: '" Weight: lbs. oz. kg; 23.00 BMI Method: General Appearance: No Apparent Distress, WD/WN Eyes: Bilateral Eye Normal Inspection, Bilateral Eye PERRL HEENT: PERRL/EOMI, Pharynx Normal Neck: Normal Inspection Respiratory: Lungs Clear, Normal Breath Sounds, No Accessory Muscle Use, No Respiratory Distress Cardiovascular: Regular Rate, Rhythm, Normal Peripheral Pulses Gastrointestinal: Normal Bowel Sounds, Non Tender, Soft Extremity: Normal Inspection, Normal Range of Motion, Non Tender, No Calf Tenderness, No Pedal Edema Neurologic/Psychiatric: Alert, Oriented x3, No Motor/Sensory Deficits, Normal Mood/Affect, wiping cloth cutter II-XII Norm as Tested Skin: Normal Color, Warm/Dry Comments Back exam - normal skin, tender in the bilateral flanks to palpation, no midline pain over the spine; negative straight leg raise bilateral; normal strength and sensation. Progress/Results/Core Measures Suspected Sepsis SIRS Temperature: Pulse: 75 Respiratory Rate: 18 Laboratory Tests 09/29/21 10:55: White Blood Count 7.8 Blood Pressure 141 /77 Mean: 98 Laboratory Tests 09/29/21 10:55: Creatinine 0.62, Platelet Count 281 Results/Orders Lab Results Laboratory Tests Test 09/29/21 10:55 09/29/21 11:50 Range/Units White Blood Count 7.8 4.3-11.0 10^3/uL Red Blood Count 4.61 3.80-5.11 10^6/uL Hemoglobin 13.0 11.5-16.0 g/dL Hematocrit 41 35-52 % Mean Corpuscular Volume 88 80-99 fL Mean Corpuscular Hemoglobin 28 25-34 pg Mean Corpuscular Hemoglobin Concent 32 32-36 g/dL Red Cell Distribution Width 14.6 H 10.0-14.5 % Platelet Count 281 130-400 10^3/uL Mean Platelet Volume 9.1 9.0-12.2 fL Immature Granulocyte % (Auto) 0 % Neutrophils (%) (Auto) 77 H 42-75 % Lymphocytes (%) (Auto) 14 12-44 % Monocytes (%) (Auto) 7 0-12 % Eosinophils (%) (Auto) 2 0-10 % Basophils (%) (Auto) 0 0-10 % Neutrophils # (Auto) 6.0 1.8-7.8 10^3/uL Lymphocytes # (Auto) 1.1 1.0-4.0 10^3/uL Monocytes # (Auto) 0.5 0.0-1.0 10^3/uL Eosinophils # (Auto) 0.2 0.0-0.3 10^3/uL Basophils # (Auto) 0.0 0.0-0.1 10^3/uL Immature Granulocyte # (Auto) 0.0 0.0-0.1 10^3/uL Sodium Level 137 135-145 MMOL/L Potassium Level 4.1 3.6-5.0 MMOL/L Chloride Level 101 98-107 MMOL/L Carbon Dioxide Level 29 21-32 MMOL/L Anion Gap 7 5-14 MMOL/L Blood Urea Nitrogen 8 7-18 MG/DL Creatinine 0.62 0.60-1.30 MG/DL Estimat Glomerular Filtration Rate 92 BUN/Creatinine Ratio 13 Glucose Level 108 H 70-105 MG/DL Calcium Level 9.6 8.5-10.1 MG/DL Urine Color YELLOW Urine Clarity CLEAR Urine pH 7.0 5-9 Urine Specific [place] 1.015 L 1.016-1.022 Urine Protein NEGATIVE NEGATIVE Urine Glucose (UA) NEGATIVE NEGATIVE Urine Ketones NEGATIVE NEGATIVE Urine Nitrite NEGATIVE NEGATIVE Urine Bilirubin NEGATIVE NEGATIVE Urine Urobilinogen 0.2 < = 1.0 MG/DL Urine Leukocyte Esterase NEGATIVE NEGATIVE Urine RBC (Auto) TRACE-I H NEGATIVE Urine RBC 2-5 H /HPF Urine WBC NONE /HPF Urine Squamous Epithelial Cells 5-10 /HPF Urine Crystals NONE /LPF Urine Bacteria NEGATIVE /HPF Urine Casts NONE /LPF Urine Mucus SMALL H /LPF Urine Culture Indicated NO My Orders Orders - JOANA HERNANDEZ MD Ed Iv/Invasive Line Start (09/29/21 10:45) Cbc With Automated Diff (09/29/21 10:45) Basic Metabolic Panel (09/29/21 10:45) Ua Culture If Indicated (09/29/21 10:45) Vital Signs/I&O 09/29/21 09/29/21 10:05 10:48 Temp 36.6 Pulse 75 Resp 18 B/P (MAP) 141/77 (98) Pulse Ox 94 O2 Delivery Room Air Capillary Refill : Less Than 3 Seconds Blood Pressure Mean: 98 Progress Note : Time: 13:45 Progress Note Patient reexamined, resting comfortably. States that she has a mild back "ache" secondary to the blankets behind her back. Her vital signs are stable, blood pressure is good, she is not tachycardic. Oxygen saturations are 95 to 96% on room air. I talked to her about her relatively normal work-up. No evidence of infection in her urine, basic laboratory studies are negative, CBC and chem istry. I advised her that she needs to follow-up with her primary care physician. No clinical or objective findings to warrant further studies from the emergency department. Neurologic exam is normal except for her mild dementia. All questions are sought and answered. Patient is calling one of her children to come pick her up and take her home. Departure Impression Primary Impression: Chronic back pain Qualified Codes: M54.50 - Low back pain, unspecified; G89.29 - Other chronic pain Disposition: 01 HOME, SELF-CARE Condition: Stable Departure-Patient Inst. Decision time for Depature: 13:52 Referrals: SELFLOUIS MD (PCP/Family) Primary Care Physician Patient Instructions: Low Back Pain in Adults Add. Discharge Instructions: You can use your prescribed pain medications every 6 hours at home as needed for pain. You can also get rans-kag-mqmjwnk lidocaine patches in place on the sore area of your back as directed on the packaging. If you develop fever, shortness of breath or any other emergent concerning symptoms please come back to the ER for reevaluation Follow-up with your primary care physician. JOANA HERNANDEZ MD Sep 29, 2021 11:21
[2021-09-29 11:23] LABS: CALCIUM 9.6 MG/DL (8.5-10.1)
[2021-09-29 11:27] LABS: CREATININE SERUM 0.62 MG/DL (0.60-1.30)
[2021-09-29 12:04] LABS: BILIRUBIN,URINE NEGATIVE (NEGATIVE); CLARITY,URINE CLEAR; COLOR,URINE YELLOW; GLUCOSE, URINE (UA) NEGATIVE (NEGATIVE); KETONES,URINE NEGATIVE (NEGATIVE); LEUKOCYTE ESTERASE ,URINE NEGATIVE (NEGATIVE); NITRITE,URINE NEGATIVE (NEGATIVE); PROTEIN,URINE NEGATIVE (NEGATIVE)
[2021-09-29 12:16] LABS: BACTERIA,URINE NEGATIVE /HPF
[2021-09-29] MEDS ORDERED: ACETAMINOPHEN 500 MG TAB (TYLENOL) ONE (13:53)
[2021-09-29] MEDS ORDERED: ACETAMINOPHEN 500 MG TAB (TYLENOL) PO ONE (14:00)
[2021-09-29 14:15] VITALS: BP 146/60
== END 2021-09-29 14:15 | disposition home or self-care (01) ==
LOC: EDUNIT# 09:52 → ER 09:53
DX: G89.29 Other chronic pain (principal); M54.9 Dorsalgia, unspecified; J44.9 Chronic obstructive pulmonary disease, unspecified; I10 Essential (primary) hypertension; I48.91 Unspecified atrial fibrillation; E78.00 Pure hypercholesterolemia, unspecified; Z86.73 Personal history of transient ischemic attack (TIA), and cerebral infarction without residual deficits; Z79.01 Long term (current) use of anticoagulants; Z79.891 Long term (current) use of opiate analgesic
CPT/HCPCS: 36415; 80048; 81000; 85025

== ENCOUNTER → 2022-03-07 | Outpatient (CLI) | payer MEDICARE ==
[~2022-03-07] MED LIST changes: +FEXO-338 PO; -FEXO-45 PO
--- NOTE | 2022-03-07 11:23 | Diagnostic Imaging Report ---
INDICATION: Fall and left rib pain. Study is limited due to significant demineralization of the osseous structures. No definite displaced rib fracture is identified. No pulmonary contusion, effusion or pneumothorax is seen. A dual lead left subclavian cardiac pacemaker is in place. IMPRESSION: No definite displaced rib fracture is identified. Dictated by: Dictated on workstation # [id number]
== END ==
LOC: RAD FS 10:57
PROVIDERS: ATTEND Family Medicine
DX: R07.81 Pleurodynia (principal); W19.XXXA Unspecified fall, initial encounter
CPT/HCPCS: 71100

== ENCOUNTER 2023-01-18 10:10 | Inpatient (IN) | payer MEDICARE ==
[2023-01-18] VITALS (13 sets, daily range): BP systolic 127–159; BP diastolic 61–100
[~2023-01-18] VITALS: Ht 165.1 cm; Wt 67.1 kg
[~2023-01-18 10:10] MED LIST changes: +CLOP-31 PO; -CLOP75TA69 PO
[2023-01-18] MEDS ORDERED: RT-ALBUTEROL SULF 2.5 MG/3 ML PRE-MIX VIAL INH STA (10:26)
[2023-01-18] MEDS ORDERED: NS IV 500 ML 500 ML IV ONE (10:30)
[2023-01-18 10:46] LABS: BASOPHILS % (AUTO) 0 % (0-10); EOSINOPHILS % (AUTO) 0 % (0-10); HEMATOCRIT 36 % (35-52); HEMOGLOBIN 11.3 g/dL (11.5-16.0); LYMPHOCYTES # (AUTO) 0.7 10^3/uL (1.0-4.0); LYMPHOCYTES % (AUTO) 8 % (12-44); MEAN CORPUSCULAR HEMOGLOBIN 27 pg (25-34); MEAN CORPUSCULAR HGB CONC 32 g/dL (32-36); MEAN CORPUSCULAR VOLUME 86 fL (80-99); MEAN PLATELET VOLUME 10.4 fL (9.0-12.2); MONOCYTES # (AUTO) 0.3 10^3/uL (0.0-1.0); MONOCYTES % (AUTO) 4 % (0-12); NEUTROPHILS # (AUTO) 7.2 10^3/uL (1.8-7.8); NEUTROPHILS % (AUTO) 88 % (42-75); PLATELET COUNT 221 10^3/uL (130-400); WHITE BLOOD COUNT 8.2 10^3/uL (4.3-11.0)
[2023-01-18 10:50] LABS: ALBUMIN 3.5 GM/DL (3.2-4.5)
[2023-01-18 10:51] LABS: POTASSIUM 5.1 MMOL/L (3.6-5.0)
--- NOTE | 2023-01-18 10:51 | ED General ---
General Chief Complaint: Respiratory Problems Stated Complaint: SOA|ANXIETY Nursing Triage Note: PT TO ROOM [facility] WITH C/O COUGH AND SOB. PT REPORTS HX OF HOME O2. Source of Information: Patient, EMS Exam Limitations: No Limitations History of Present Illness Date Seen by Provider: Jan 18, 2023 Time Seen by Provider: 10:18 Initial Comments Here by EMS with report of hypoxia and shortness of breath with hypertension. Patient [facility] a [facility] and does have history of atrial fibrillation and is on Eliquis. Does have history of COPD with occasional exacerbations. She reports that she has had cough for the last 4 to 5 days and shortness of breath. EMS reports on their arrival that the patient was dyspneic and hypertensive in the range of 200s systolic. They did give DuoNeb because of significant wheezing noted on exam and that helped significantly. Blood pressure then declined to the 100s to 130s systolic. Patient responded well to 5 L via nasal cannula. She is talking quite well. Denies chest pain. 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 This is unchanged. She denies nausea or vomiting. She was sweating earlier. Denies dysuria or diarrhea. Timing/Duration: 4-5 Days, Getting Worse, Other (Acutely worse this morning) Severity: Moderate Associated Systoms: No Chest Pain; Cough, Diaphoresis; No Fever/Chills, No Nausea/Vomiting; Shortness of Air, Weakness Allergies and Home Medications Allergies Coded Allergies: Penicillins (Unverified Allergy, Unknown, 11/17/19) Patient Home Medication List Home Medication List Reviewed: Yes Acetaminophen (Acetaminophen) 325 Mg Tablet, 650 MG PO Q4H PRN for PAIN-MILD (1- 4) Prescribed by: JOSE RAMON PETER on 08/18/21 0751 Apixaban (Eliquis) 5 Mg Tablet, 5 MG PO BID Prescribed by: JOSE RAMON PETER on 08/18/21 0751 Atorvastatin Calcium (Atorvastatin Calcium) 40 Mg Tablet, 40 MG PO HS, (Reported) Entered as Reported by: CANDELARIO VASQUEZ on 08/10/21 140 Calcium Carbonate/Vitamin D3 (Calcium + Vitamin D Tablet) 1 Each Tablet, 1 EACH PO DAILY, (Reported) Entered as Reported by: CANDELARIO VASQUEZ on 08/10/21 140 Carvedilol (Carvedilol) 12.5 Mg Tablet, 12.5 MG PO BID WITH MEALS, (Reported) Entered as Reported by: CANDELARIO VASQUEZ on 10/26/20 1211 Cholecalciferol (Vitamin D3) (Vitamin D3) 50 Mcg Capsule, 50 MCG PO DAILY, (Reported) Entered as Reported by: CANDELARIO VASQUEZ on 02/24/20 1029 Clopidogrel Bisulfate (Clopidogrel) 75 Mg Tablet, 75 MG PO DAILY, (Reported) Entered as Reported by: CANDELARIO VASQUEZ on 08/10/21 140 Cyanocobalamin (Vitamin B-12) (Vitamin B-12) 500 Mcg Tablet, 500 MCG PO DAILY, (Reported) Entered as Reported by: CANDELARIO VASQUEZ on 08/10/21 140 Diltiazem HCl (Diltiazem 24Hr ER) 180 Mg Cap.er.24h, 180 MG PO DAILY, (Reported) Entered as Reported by: CANDELARIO VASQUEZ on 08/10/21 140 Fexofenadine HCl (Fexofenadine HCl) 60 Mg Tablet, 60 MG PO DAILY PRN for ALLERGY SYMPTOMS, (Reported) Entered as Reported by: CANDELARIO VASQUEZ on 08/10/21 140 Furosemide (Furosemide) 20 Mg Tablet, 20 MG PO DAILY PRN for FLUID RETENTION, (Reported) Entered as Reported by: CANDELARIO VASQUEZ on 08/10/21 140 Gabapentin (Gabapentin) 100 Mg Capsule, 100 MG PO BID, (Reported) Entered as Reported by: CANDELARIO VASQUEZ on 08/10/21 140 Hydrocodone Bit/Acetaminophen (HYDROcodone/APAP 5 MG/325 MG TAB) 1 Tab Tab, 1 EA PO Q4H PRN for PAIN-MODERATE (5-7) Prescribed by: JOSE RAMON PETER on 08/18/21 075 Iron Polysaccharide Complex (Ferrex 150) 150 Mg Capsule, 150 MG PO BID, (Reported) Entered as Reported by: CANDELARIO VASQUEZ on 08/10/21 140 Lisinopril (Lisinopril) 10 Mg Tablet, 10 MG PO DAILY, (Reported) Entered as Reported by: CANDELARIO VASQUEZ on 08/10/21 140 Polyethylene Glycol 3350 (Polyethylene Glycol 3350) 17 Gm Powd.pack, 17 GM PO BID Prescribed by: JOSE RAMON PETER on 08/18/21 0751 Potassium Chloride (Klor-Con 10) 10 Meq Tablet.er, 10 MEQ PO BID, (Reported) Entered as Reported by: CANDELARIO VASQUEZ on 08/10/21 140 Sertraline HCl (Sertraline HCl) 50 Mg Tablet, 50 MG PO DAILY, (Reported) Entered as Reported by: CANDELARIO VASQUEZ on 08/10/211408 Sertraline HCl (Sertraline HCl) 100 Mg Tablet, 100 MG PO DAILY, (Reported) Entered as Reported by: CANDELARIO VASQUEZ on 08/10/211408 Review of Systems Review of Systems Constitutional: see HPI; No chills, No fever EENTM: No nose congestion, No throat pain Respiratory: cough, short of breath Cardiovascular: No chest pain, No edema Gastrointestinal: No nausea, No vomiting Genitourinary: no symptoms reported Musculoskeletal: No back pain; joint pain; No muscle pain Skin: No change in color, No lesions Psychiatric/Neurological: No Symptoms Reported Past Fxvlqmq-Lmttou-Vharxd Hx Patient Social History Tobacco Use?: No Smoking Status: Never a Smoker Smokeless Tobacco Frequency: Never a User Use of E-Cig and/or Vaping dev: No Use of E-Cig and/or Vaping Mehrdad: Never a User Substance use?: No Alcohol Use?: No Pt feels they are or have been: No Immunizations Up To Date Tetanus Booster (TDap): Unknown PED Vaccines UTD: Yes First/Initial COVID19 Vaccinat: 2020 Second COVID19 Vaccination Rishabh: 2020 Seasonal Allergies Seasonal Allergies: No Past Medical History Surgery/Hospitalization HX: Heart stents Pace maker Surgeries: Yes Adenoidectomy, Cardiac, Coronary Stent, Pacemaker, Vascular Surgery Respiratory: Yes (CHRONIC COUGH; PNEUMONIA X1; BRONCHITIS ) COPD Cardiac: Yes (PACEMAKER 2017;CARDIAC STENTS X 4; RIGHT CAROTID STENT X 1;ANGIOPLASTIES) Atrial Fibrillation, High Cholesterol, Hypertension Neurological: Yes (CVA 2016--NO RESIDUAL EFFECTS; STATES ONLY SYMPTOM WAS HEADACHE. 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 PLUS ANGIOPLASTIES. -CARDIAC CATH 03/03/20-BY DR. LEAHY CONCLUSIONS: Successful balloon angioplasty of 99% proximal stenosis of the second obtuse marginal with reduction of stenosis to approximately 50% and improvement of flow from CODY 2 to CODY 3. -CARDIAC CATH 06/29/[address] LEAHY- CONCLUSIONS: 1. Coronary artery disease as detailed above. The left circumflex artery had a near total occlusion that was reduced to less than 50% with balloon angioplasty. The left anterior descending artery is known to have Synergy 3.5 x 28 and 3.0 x 16 mm stents that were exhibiting 90% stenosis. This was reduced to less than 50% with balloon angioplasty. The right coronary artery is known to have Synergy 4.0 x 38 and 3.5 x 38 stents that are patent. All vessels have diffuse moderate disease. 2. Ischemic cardiomyopathy with apical akinesis to dyskinesis and left ventricular ejection fraction approximately 40%. 3. Elevated left ventricular end-diastolic pressure. -RIGHT CAROTID STENT X 1 -PACEMAKER 2016 ADDITIONAL PMH: -MULTIPLE NSTEMI'S -ADMITTED 06/28/20-07/01/20 FOR NSTEMI -ADMITTED 07/13/20- FOR SEPSIS AND PNEUMONIA Physical Exam-Suspected Sepsis Physical Exam Vital Signs Vital Signs - First Documented Capillary Refill : Less Than 3 Seconds Blood Pressure Mean: 83 Height, Weight, BMI Height: '" Weight: lbs. oz. kg; 24.00 BMI Method: General Appearance: No Apparent Distress, WD/WN HEENT: PERRL/EOMI, Other (Mucous membranes dry) Neck: Non Tender, Supple Respiratory: Crackles (Bilateral bases), Expiration, Wheezing (Throughout) Cardiovascular: Regular Rate, Rhythm, No Murmur Gastrointestinal: Non Tender, Soft Back: Normal Inspection, No Vertebral Tenderness Extremity: Normal Range of Motion, Non Tender Neurologic/Psychiatric: Alert, Oriented x3 Skin: normal color, warm/dry Focused Exam Lactate Level 01/18/23 10:20: Lactic Acid Level 1.96 Lactic Acid Level Laboratory Tests Test 01/18/23 10:20 Lactic Acid Level 1.96 MMOL/L (0.50-2.00) Progress/Results/Core Measures Suspected Sepsis SIRS Temperature: Pulse: 62 Respiratory Rate: 16 Laboratory Tests 01/18/23 10:16: White Blood Count 8.2 Blood Pressure 120 /65 Mean: 83 01/18/23 10:20: Lactic Acid Level 1.96 Laboratory Tests 01/18/23 10:16: Creatinine 0.72, Platelet Count 221, Total Bilirubin 1.0 01/18/23 11:10: INR Comment 1.7H Results/Orders Lab Results Laboratory Tests Test 01/18/23 10:14 01/18/23 10:16 01/18/23 10:20 01/18/23 11:10 Range/Units B-Type Natriuretic Peptide 1963.5 H <100.0 PG/ML White Blood Count 8.2 4.3-11.0 10^3/uL Red Blood Count 4.20 3.80-5.11 10^6/uL Hemoglobin 11.3 L 11.5-16.0 g/dL Hematocrit 36 35-52 % Mean Corpuscular Volume 86 80-99 fL Mean Corpuscular Hemoglobin 27 25-34 pg Mean Corpuscular Hemoglobin Concent 32 32-36 g/dL Red Cell Distribution Width 17.0 H 10.0-14.5 % Platelet Count 221 130-400 10^3/uL Mean Platelet Volume 10.4 9.0-12.2 fL Immature Granulocyte % (Auto) 0 % Neutrophils (%) (Auto) 88 H 42-75 % Lymphocytes (%) (Auto) 8 L 12-44 % Monocytes (%) (Auto) 4 0-12 % Eosinophils (%) (Auto) 0 0-10 % Basophils (%) (Auto) 0 0-10 % Neutrophils # (Auto) 7.2 1.8-7.8 10^3/uL Lymphocytes # (Auto) 0.7 L 1.0-4.0 10^3/uL Monocytes # (Auto) 0.3 0.0-1.0 10^3/uL Eosinophils # (Auto) 0.0 0.0-0.3 10^3/uL Basophils # (Auto) 0.0 0.0-0.1 10^3/uL Immature Granulocyte # (Auto) 0.0 0.0-0.1 10^3/uL Neutrophils % (Manual) 81 % Lymphocytes % (Manual) 12 % Monocytes % (Manual) 3 % Band Neutrophils 4 % Blood Morphology Comment NORMAL Sodium Level 135 135-145 MMOL/L Potassium Level 5.1 H 3.6-5.0 MMOL/L Chloride Level 103 98-107 MMOL/L Carbon Dioxide Level 19 L 21-32 MMOL/L Anion Gap 13 5-14 MMOL/L Blood Urea Nitrogen 13 7-18 MG/DL Creatinine 0.72 0.60-1.30 MG/DL Estimat Glomerular Filtration Rate 82 BUN/Creatinine Ratio 18 Glucose Level 216 H 70-105 MG/DL Calcium Level 9.3 8.5-10.1 MG/DL Corrected Calcium 9.7 8.5-10.1 MG/DL Total Bilirubin 1.0 0.1-1.0 MG/DL Aspartate Amino Transf (AST/SGOT) 42 H 5-34 U/L Alanine Aminotransferase (ALT/SGPT) 18 0-55 U/L Alkaline Phosphatase 93 40-136 U/L Troponin I 0.133 H <0.028 NG/ML Total Protein 7.6 6.4-8.2 GM/DL Albumin 3.5 3.2-4.5 GM/DL Lactic Acid Level 1.96 0.50-2.00 MMOL/L Prothrombin Time 20.4 H 12.2-14.7 SEC INR Comment 1.7 H 0.8-1.4 Activated Partial Thromboplast Time 35 24-35 SEC My Orders Orders - JATIN DARDEN MD Ns Iv 500 Ml (Sodium Chloride 0.9%) (01/18/23 10:30) Cbc With Automated Diff (01/18/23 10:26) Comprehensive Metabolic Panel (01/18/23 10:26) Blood Culture (01/18/23 10:26) Sputum Culture (01/18/23 10:26) Urinalysis (01/18/23 10:26) Urine Culture (01/18/23 10:26) Protime With Inr (01/18/23 10:26) Partial Thromboplastin Time (01/18/23 10:26) Chest 1 View, Ap/Pa Only (01/18/23 10:26) Ed Iv/Invasive Line Start (01/18/23 10:26) Ekg Tracing (01/18/23 10:26) Troponin I [place] (01/18/23 10:26) Vital Signs Adult Sepsis Patie Q15M (01/18/23 10:26) O2 (01/18/23 10:26) Remove Rings In Anticipation O (01/18/23 10:26) Lactic Acid Analyzer (01/18/23 10:26) Albuterol Pre-Mix Nebs (Rt) (Proventil (01/18/23 10:26) Svn Small Volume Nebulizer (01/18/23 10:26) Bnp Price (01/18/23 10:47) Manual Differential (01/18/23 10:16) Furosemide Injection (Lasix Injection) (01/18/23 11:30) Ed Admission (Communication) (01/18/23 11:45) Code/Resuscitation (01/18/23 11:45) Medications Given in ED Current Medications Medications Dose Ordered Sig/Natalie Route Start Time Stop Time Status Last Admin Dose Admin Furosemide 40 mg ONCE ONCE IVP 01/18/23 11:30 01/18/23 11:31 DC 01/18/23 11:35 40 MG Sodium Chloride 500 ml @ 0 mls/hr Q0M ONCE IV 01/18/23 10:30 01/18/23 10:31 DC 01/18/23 10:39 999 MLS/HR Vital Signs/I&O 01/18/23 01/18/23 01/18/23 10:10 10:10 10:10 Temp 36.7 Pulse 62 Resp 16 B/P (MAP) 120/65 (83) Pulse Ox 94 94 O2 Delivery Nasal Cannula Nasal Cannula Nasal Cannula O2 Flow Rate 3.50 3.50 3.50 Capillary Refill : Less Than 3 Seconds Blood Pressure Mean: 83 Progress Note : Progress Note Seen and evaluated. We will initiate sepsis protocol including CBC, CMP, coags, UA and culture, chest x-ray and EKG. I will add troponin and BNP given her cardiac condition. Albuterol neb ordered. Patient remains on 5 L via nasal cannula. Highly likely that this will go to admission. Monitor patient. Differential diagnosis includes pneumonia, COPD exacerbation, CHF exacerbation, cardiac event, electrolyte abnormality 1114: Labs reviewed to this point. CBC shows normal white count and slightly low hemoglobin but does have bandemia and left shift. Chemistries show slightly elevated potassium of 5.1 with normal creatinine and elevated blood glucose. LFTs are nonconcerning. Troponin is elevated at 0.133 and lactic acid is elevated at 1.96. These are both likely related to hypoxia earlier as well as the hypertension noted earlier. EKG reviewed and shows no findings for acute PR as noted below. We are pending BNP. Chest x-ray does show vascular congestion. I do not see obvious infiltrate on my interpretation. Patient will need to be admitted. 1140: BNP is elevated at greater than 1900. I have reviewed previous echocardiogram from 2020 that does show EF of 35 to 40%. I discussed the case with Dr. Peter, on-call for [facility] and she accepts patient for admission, inpatient status. I discussed the case with Dr. Martinez, patient's deputy administrator and he will see the patient in the ER and will see her in consult. 1145: Case discussed with Dr. Martinez in the emergency department and EKG reviewed with him. Discussed with patient who agrees to admission. I have ordered and we have given Lasix 40 mg IV for the heart failure concerns. ECG Initial ECG Impression Date: Jan 18, 2023 Initial ECG Impression Time: 10:38 Initial ECG Rate: 61 Initial ECG Rhythm: Normal Sinus Comment Sinus rhythm with left ventricular hypertrophy. Normal axis. Normal CO interval and QRS duration. No evidence of ST elevation PR. Does have ST depression laterally. Interpreted by me. Diagnostic Imaging Diagonstic Imaging: Xray Plain Films/CT/US/NM/MRI: chest Comments [facility]. [place], [place] NAME: KEISHA ESPAÑA [facility] REC#: [id number] PT STATUS: REG ER : 1940 PHYSICIAN: JATIN DARDEN MD ADMIT DATE: 01/18/23/ER Draft Date of Exam:01/18/23 CHEST 1 VIEW, AP/PA ONLY CLINICAL INDICATION: Patient with cough. EXAM: Portable chest x-ray, upright view. COMPARISON: Chest x-ray dated 08/11/2021. FINDINGS: Again seen is cardiomegaly with slight progression of pulmonary vascular congestion. There are increased lung markings throughout both lungs. There is slightly ill-defined appearance of the perihilar regions, which may be related to pulmonary congestion. Again seen is cardiac pacemaker overlying the left chest with the leads appearing intact. There is no pleural effusion or pneumothorax. IMPRESSION: 1: There is cardiomegaly and pulmonary vascular congestion which has progressed in the interim. 2: There is ill-defined appearance of the bilateral perihilar regions, which may be related to pulmonary congestion. Dictated on workstation # [id number] Dict: 01/18/23 1125 Trans: 01/18/23 1130 [id number] Interpreted by: MICHELLE KU MD Electronically signed by: Departure Communication (Admissions) Time/Spoke to Admitting Phy: 11:40 Impression Primary Impression: CHF (congestive heart failure) Qualified Codes: I50.21 - Acute systolic (congestive) heart failure Additional Impression: Elevated troponin Disposition: ADMITTED INPATIENT Condition: Stable Admissions Decision to Admit Reason: Admit from ER (General) Decision to Admit/Date: Jan 18, 2023 Time/Decision to Admit Time: 11:40 Departure-Patient Inst. Referrals: LOUIS SAINZ MD (PCP/Family) Primary Care Physician JATIN DARDEN MD Jan 18, 2023 10:51
[2023-01-18 10:52] LABS: CALCIUM 9.3 MG/DL (8.5-10.1)
[2023-01-18 10:53] LABS: TOTAL PROTEIN 7.6 GM/DL (6.4-8.2)
[2023-01-18 10:57] LABS: CREATININE SERUM 0.72 MG/DL (0.60-1.30)
[2023-01-18 11:02] LABS: BAND NEUTROPHILS 4 %; LYMPHOCYTES % (MANUAL) 12 %; MONOCYTES % (MANUAL) 3 %; NEUTROPHILS % (MANUAL) 81 %; RBC MORPH NORMAL
[2023-01-18 11:30] LABS: INR 1.7 (0.8-1.4); PROTHROMBIN TIME PATIENT 20.4 SEC (12.2-14.7)
[2023-01-18] MEDS ORDERED: FUROSEMIDE 40 MG/4 ML INJ (LASIX) IVP ONE (11:30)
--- NOTE | 2023-01-18 11:30 | Diagnostic Imaging Report ---
CLINICAL INDICATION: Patient with cough. EXAM: Portable chest x-ray, upright view. COMPARISON: Chest x-ray dated 08/11/2021. FINDINGS: Again seen is cardiomegaly with slight progression of pulmonary vascular congestion. There are increased lung markings throughout both lungs. There is slightly ill-defined appearance of the perihilar regions, which may be related to pulmonary congestion. Again seen is cardiac pacemaker overlying the left chest with the leads appearing intact. There is no pleural effusion or pneumothorax. IMPRESSION: 1: There is cardiomegaly and pulmonary vascular congestion which has progressed in the interim. 2: There is ill-defined appearance of the bilateral perihilar regions, which may be related to pulmonary congestion. Dictated by: Dictated on workstation # [id number]
[2023-01-18 12:13] LABS: BILIRUBIN,URINE NEGATIVE (NEGATIVE); CLARITY,URINE CLEAR; COLOR,URINE YELLOW; GLUCOSE, URINE (UA) NEGATIVE (NEGATIVE); KETONES,URINE NEGATIVE (NEGATIVE); LEUKOCYTE ESTERASE ,URINE NEGATIVE (NEGATIVE); NITRITE,URINE NEGATIVE (NEGATIVE); PH,URINE 5.5 (5-9); PROTEIN,URINE 1+ (NEGATIVE)
[2023-01-18 13:02] LABS: BACTERIA,URINE LARGE /HPF
--- NOTE | 2023-01-18 14:10 | Consultation-Cardiology ---
HPI-Cardiology Cardiology Consultation Date of Consultation 01/18/23 Date of Admission Time Seen by Provider: 12:50 Indication: Dyspnea HPI Patient is an 82 y/o female with history of CAD, CHF, HTN, PAF. Presented to the ER by EMS today from [place] with complaints of increased dyspnea, orthopnea and productive cough for the past 3-4 days. Denies any chest pain, dizziness or syncope. Was noted to be hypoxemic on arrival. Currently still complaining of dyspnea at rest Patient received Lasix 40 mg in the emergency room, started on diuretics, still having dyspnea at rest. Denied any active chest pain. Home Medications & Allergies Allergies: Coded Allergies: Penicillins (Unverified Allergy, Unknown, 11/17/19) Home Medication List Reviewed: Yes OAI-Hbjbhm-Zmivjl Hx Patient Social History Marital Status: single Employed/Student: retired Smoking Status: Never a Smoker 2nd Hand Smoke Exposure: No Recent Hopitalizations: No Have you traveled recently?: No Alcohol Use?: No Immunizations Up To Date Tetanus Booster (TDap): Unknown Date of Pneumonia Vaccine: Jul 08, 2019 Past Medical History CAD, CHF, PAF Family Medical History Significant Family History: No Pertinent Family Hx, Asthma Review of Systems-General Review of Systems Constitutional: see HPI; No chills, No fever; malaise EENTM: No nose congestion, No throat pain Respiratory: see HPI, cough, dyspnea on exertion; No hemoptysis, No orthopnea, No phlegm; short of breath; No stridor; wheezing; No other Cardiovascular: see HPI; No chest pain, No edema Gastrointestinal: see HPI; No nausea, No vomiting Genitourinary: no symptoms reported, see HPI Musculoskeletal: see HPI; No back pain; joint pain; No muscle pain Skin: see HPI; No change in color, No lesions Psychiatric/Neurological: No Symptoms Reported, See HPI Reviewed Test Results Reviewed Test Results Lab Laboratory Tests 01/18/23 10:14: B-Type Natriuretic Peptide 1963.5H 01/18/23 10:16: White Blood Count 8.2, Red Blood Count 4.20, Hemoglobin 11.3L, Hematocrit 36, Mean Corpuscular Volume 86, Mean Corpuscular Hemoglobin 27, Mean Corpuscular Hemoglobin Concent 32, Red Cell Distribution Width 17.0H, Platelet Count 221, Mean Platelet Volume 10.4, Immature Granulocyte % (Auto) 0, Neutrophils (%) (Auto) 88H, Lymphocytes (%) (Auto) 8L, Monocytes (%) (Auto) 4, Eosinophils (%) (Auto) 0, Basophils (%) (Auto) 0, Neutrophils # (Auto) 7.2, Lymphocytes # (Auto) 0.7L, Monocytes # (Auto) 0.3, Eosinophils # (Auto) 0.0, Basophils # (Auto) 0.0, Immature Granulocyte # (Auto) 0.0, Neutrophils % (Manual) 81, Lymphocytes % (Manual) 12, Monocytes % (Manual) 3, Band Neutrophils 4, Blood Morphology Comment NORMAL, Sodium Level 135, Potassium Level 5.1H, Chloride Level 103, Carbon Dioxide Level 19L, Anion Gap 13, Blood Urea Nitrogen 13, Creatinine 0.72, Estimat Glomerular Filtration Rate 82, BUN/Creatinine Ratio 18, Glucose Level 216H, Calcium Level 9.3, Corrected Calcium 9.7, Total Bilirubin 1.0, Aspartate Amino Transf (AST/SGOT) 42H, Alanine Aminotransferase (ALT/SGPT) 18, Alkaline Phosphatase 93, Troponin I 0.133H, Total Protein 7.6, Albumin 3.5 01/18/23 10:20: Lactic Acid Level 1.96 01/18/23 11:10: Prothrombin Time 20.4H, INR Comment 1.7H, Activated Partial Thromboplast Time 35 01/18/23 12:00: Urine Color YELLOW, Urine Clarity CLEAR, Urine pH 5.5, Urine Specific [place] 1.025H, Urine Protein 1+H, Urine Glucose (UA) NEGATIVE, Urine Ketones NEGATIVE, Urine Nitrite NEGATIVE, Urine Bilirubin NEGATIVE, Urine Urobilinogen 4.0, Urine Leukocyte Esterase NEGATIVE, Urine RBC (Auto) 3+H, Urine RBC 5-10H, Urine WBC 2- 5, Urine Squamous Epithelial Cells 2-5, Urine Crystals NONE, Urine Bacteria LARGEH, Urine Casts PRESENT, Urine Hyaline Casts 2-5H, Urine Mucus NEGATIVE, Urine Culture Indicated CULTURE PENDING Physical Exam Physical Exam Vital Signs Vital Signs - First Documented Capillary Refill : Less Than 3 Seconds Height, Weight, BMI Height: '" Weight: lbs. oz. kg; 24.00 BMI Method: General Appearance: No Apparent Distress, WD/WN Eyes: Bilateral Eye Normal Inspection, Bilateral Eye PERRL, Bilateral Eye EOMI HEENT: PERRL/EOMI, Other (Mucous membranes dry) Neck: Non Tender, Supple Respiratory: Crackles (Bilateral bases), Expiration, Rhonci, Wheezing (Throughout) Cardiovascular: Regular Rate, Rhythm, No Murmur, Systolic Murmur, Gallop/S3, Other (trace edema BLE) Gastrointestinal: Non Tender, Soft Back: Normal Inspection, No Vertebral Tenderness Extremity: Normal Range of Motion, Non Tender Neurologic/Psychiatric: Alert, Oriented x3 Skin: Normal Color, Warm/Dry Lymphatic: No Adenopathy A/P-Cardiology Admission Diagnosis AE CHF CAD PAF HTN Assessment/Plan AE CHF, acute on chronic LV systolic dysfunction, ischemic cardiomyopathy, most recent EF 35-40%.Maintained on Coreg and Lisinopril as outpatient. I will evaluate 2D echocardiogram, started on Lasix 40 mg IV twice daily Continue to monitor electrolytes closely. Minimally elevated troponin. Non-ST elevation myocardial infarction, some dynamic T wave abnormality was noted new compared to the previous study, appears to have more of LVH with early repolarization. Started aspirin 81 mg daily and Lovenox 1 mg/kg. I will hold Eliquis for now and monitor troponin level. Coronary artery disease, History of multiple interventions. LHC done Jun 28, 2020 revealing total occlusion of the circumflex artery with successful balloon angioplasty and 50 percent residual stenosis, failed attempt to place stent d/t calcification. Severe stenosis in the stent in the LAD, underwent balloon angioplasty with mild to moderate residual stenosis, known to have Synergy 3.5x28 and 3.0x16mm, RCA has multiple stents Synergy 4.0 x38 and 3.5 x 38 that were patent with sm vessel dz distally. Patient had NSTEMI and underwent LHC on 10/29/20 with stenting to the circumflex artery using [place] 2.5x15mm expanded to 2.6mm with excellent results Continue to monitor for now Paroxysmal atrial fibrillation, maintained on Eliquis. Currently in sinus rhythm, rate controlled I am holding Eliquis for now. [id number] score of 5, tolerating Eliquis 5 mg twice daily. Continue to monitor History of Medtronic dual chamber PPM in [address] Pierce at [facility]. Continue to monitor. Pacemaker checkup was done in September 2022 showing good sensing and capture activity. Continue to monitor Carotid artery stenosis, hx of right carotid stenting, last ultrasound was done in June 2022 showing bilateral nonobstructive disease Hx CVA unknown date Poor memory GERD/PUD Left hip fracture due to a nonsyncopal fall, underwent hip surgery in July 2021 Thank you for allowing us to participate in the management of Ms Nolasco. This is Wu Kahn PA-C, as a scribe for Dr. Martinez. Patient was seen and evaluated with Wu, I interviewed and examined the patient, I discussed with Wu the management plan, agree with the current scribed note, made few modification using Italic font Appears to be short of breath, still having bilateral rhonchi with wet rales at the bases, some expiratory wheezing She is currently in sinus rhythm Had mild elevation in troponin and elevation in BNP. Known to have congestive heart failure with left ventricular systolic dysfunction Patient was admitted and started on Lasix and Lovenox, monitor and trend troponin Restarted Coreg and lisinopril. Restarted Lipitor. WU LOVE Jan 18, 2023 14:10 MACARIO MARTINEZ MD Jan 18, 2023 14:38
[2023-01-18] MEDS ORDERED: lisINopril 10 MG (PRINIVIL) TABLET PO NR (15:00)
--- NOTE | 2023-01-18 15:14 | History & Physical ---
HPI History of Present Illness: 82 yo female states she came to the hospital because she was having a panic attack and wanted to kill about 3 people, states the nurses kept asking about pain and there wasn't a spot to describe. She is having neck pain right now, states "they have been being mean to me since Monday" and that is why it is hurting now. She says she has a hard time getting her legs up on the bed and her feet were in a wheelchair next to the bed and she ended up laying across the bed with her head on the table next to it and says she was that way for hours and people walked in and turned off the buzzer and walked out. She says today she was having a panic attack because they wanted her to get up and she wanted to sleep longer. She is coughing during interview, states she has had a cough for years, but she thinks it is worse recently. She says she has no control over it just like she has no control over her urination. She says they finally asked if she wanted to go to the hospital and she said yes. She thought she had a mini stroke. She says she told them there was something wrong with her and they wouldn't listen and thought she was faking. She says she doesn't know why they would think that when she has pneumonia and her lungs are a mess. States she has been on oxygen for quite a while. She says when she had to change her own pants it was too much exertion and she started shaking and had to put on oxygen which helps. Lives in [facility] per her report, but states her house is across the [facility]. She states she doesn't know how to walk, the rehab guys never showed her, says she was walking before she broke her hip. Source: patient Date seen by provider: Jan 18, 2023 Time Seen by Provider: 15:11 Attending Physician Greg Vargas MD PCP Admitting Physician: Jose Ramon Mesa MD Attending Physician: Jose Ramon Mesa MD Consult Date of Admission Jan 18, 2023 at 14:07 Home Medications Home Medications Reviewed patient Home Medication Reconciliation performed by pharmacy medication reconciliations optical laboratory technician and/or nursing. Patients Allergies have been reviewed. Allergies Coded Allergies: Penicillins (Unverified Allergy, Unknown, 11/17/19) [id number] Hx Patient Social History Marrital Status: single Employed/Student: retired Smoking Status: Never a Smoker 2nd Hand Smoke Exposure: No Recent Hopitalizations: No Alcohol Use?: No Have you traveled recently?: No Immunizations Up To Date Tetanus Booster (TDap): Unknown Influenza Vaccine Up-to-Date: Yes; Up-to-Date First/Initial COVID19 Vaccinat: 2020 Second COVID19 Vaccination Rishabh: 2020 Past Medical History PMHx: Osteoarthritis- shoulders, knee, hip, neck Coronary artery disease with stenting Depression SurgHx: Left hip replacement Cardiac stenting Pacemaker Right carotid stenting Family Medical History Significant Family History: Asthma Review of Systems (CHC) Constitutional: No fever EENTM: nose congestion (runny nose, states mucous going through her and out her bowels); No throat pain Respiratory: cough, short of breath Cardiovascular: No chest pain Gastrointestinal: abdominal pain (states "you guys did it", on clarification she says the ambulance brought her here because she couldn't get stool out and she saw people walking toward her with hypodermic needles and then she doesn't remember what else, but now when she goes to the bathroom/has gas it hurts in her stomach), diarrhea ("yes and no, sometimes formed, sometimes diarrhea, dark color"); No nausea, No vomiting Genitourinary: No dysuria Musculoskeletal: neck pain Skin: rash (states she has rash in vaginal area that itches, she states she was told in past it could be psoriasis) Reviewed Test Results Reviewed Test Results Lab Laboratory Tests Test 01/18/23 10:14 01/18/23 10:16 01/18/23 10:20 01/18/23 11:10 Range/Units B-Type Natriuretic Peptide 1963.5 H <100.0 PG/ML White Blood Count 8.2 4.3-11.0 10^3/uL Red Blood Count 4.20 3.80-5.11 10^6/uL Hemoglobin 11.3 L 11.5-16.0 g/dL Hematocrit 36 35-52 % Mean Corpuscular Volume 86 80-99 fL Mean Corpuscular Hemoglobin 27 25-34 pg Mean Corpuscular Hemoglobin Concent 32 32-36 g/dL Red Cell Distribution Width 17.0 H 10.0-14.5 % Platelet Count 221 130-400 10^3/uL Mean Platelet Volume 10.4 9.0-12.2 fL Immature Granulocyte % (Auto) 0 % Neutrophils (%) (Auto) 88 H 42-75 % Lymphocytes (%) (Auto) 8 L 12-44 % Monocytes (%) (Auto) 4 0-12 % Eosinophils (%) (Auto) 0 0-10 % Basophils (%) (Auto) 0 0-10 % Neutrophils # (Auto) 7.2 1.8-7.8 10^3/uL Lymphocytes # (Auto) 0.7 L 1.0-4.0 10^3/uL Monocytes # (Auto) 0.3 0.0-1.0 10^3/uL Eosinophils # (Auto) 0.0 0.0-0.3 10^3/uL Basophils # (Auto) 0.0 0.0-0.1 10^3/uL Immature Granulocyte # (Auto) 0.0 0.0-0.1 10^3/uL Neutrophils % (Manual) 81 % Lymphocytes % (Manual) 12 % Monocytes % (Manual) 3 % Band Neutrophils 4 % Blood Morphology Comment NORMAL Sodium Level 135 135-145 MMOL/L Potassium Level 5.1 H 3.6-5.0 MMOL/L Chloride Level 103 98-107 MMOL/L Carbon Dioxide Level 19 L 21-32 MMOL/L Anion Gap 13 5-14 MMOL/L Blood Urea Nitrogen 13 7-18 MG/DL Creatinine 0.72 0.60-1.30 MG/DL Estimat Glomerular Filtration Rate 82 BUN/Creatinine Ratio 18 Glucose Level 216 H 70-105 MG/DL Calcium Level 9.3 8.5-10.1 MG/DL Corrected Calcium 9.7 8.5-10.1 MG/DL Total Bilirubin 1.0 0.1-1.0 MG/DL Aspartate Amino Transf (AST/SGOT) 42 H 5-34 U/L Alanine Aminotransferase (ALT/SGPT) 18 0-55 U/L Alkaline Phosphatase 93 40-136 U/L Troponin I 0.133 H <0.028 NG/ML Total Protein 7.6 6.4-8.2 GM/DL Albumin 3.5 3.2-4.5 GM/DL Lactic Acid Level 1.96 0.50-2.00 MMOL/L Prothrombin Time 20.4 H 12.2-14.7 SEC INR Comment 1.7 H 0.8-1.4 Activated Partial Thromboplast Time 35 24-35 SEC Test 01/18/23 12:00 Range/Units Urine Color YELLOW Urine Clarity CLEAR Urine pH 5.5 5-9 Urine Specific [place] 1.025 H 1.016-1.022 Urine Protein 1+ H NEGATIVE Urine Glucose (UA) NEGATIVE NEGATIVE Urine Ketones NEGATIVE NEGATIVE Urine Nitrite NEGATIVE NEGATIVE Urine Bilirubin NEGATIVE NEGATIVE Urine Urobilinogen 4.0 < = 1.0 MG/DL Urine Leukocyte Esterase NEGATIVE NEGATIVE Urine RBC (Auto) 3+ H NEGATIVE Urine RBC 5-10 H /HPF Urine WBC 2-5 /HPF Urine Squamous Epithelial Cells 2-5 /HPF Urine Crystals NONE /LPF Urine Bacteria LARGE H /HPF Urine Casts PRESENT /LPF Urine Hyaline Casts 2-5 H /LPF Urine Mucus NEGATIVE /LPF Urine Culture Indicated CULTURE PENDING Radiology CXR 01/18/23: IMPRESSION: 1: There is cardiomegaly and pulmonary vascular congestion which has progressed in the interim. 2: There is ill-defined appearance of the bilateral perihilar regions, which may be related to pulmonary congestion. Physical Exam-(CHC) Physical Exam Vital Signs VS - Last 72 Hours, by Label 01/18/23 01/18/23 01/18/23 01/18/23 10:10 10:10 10:10 14:15 Temp 36.7 Pulse 62 72 Resp 16 B/P (MAP) 120/65 (83) 140/71 (94) Pulse Ox 94 94 O2 Delivery Nasal Cannula Nasal Cannula Nasal Cannula Nasal Cannula O2 Flow Rate 3.50 3.50 3.50 2.00 01/18/23 01/18/23 01/18/23 01/18/23 14:17 14:31 14:43 14:45 Temp 36.4 36.8 Pulse 69 70 70 71 Resp 16 24 18 28 B/P (MAP) 119/68 149/80 (93) 149/80 (103) 127/70 (90) Pulse Ox 95 95 95 93 O2 Delivery Nasal Cannula Nasal Cannula Nasal Cannula Nasal Cannula O2 Flow Rate 3.00 2.00 2.00 2.00 01/18/23 01/18/23 01/18/23 01/18/23 15:00 15:15 15:30 15:45 Pulse 70 71 73 72 Resp 25 33 26 25 B/P (MAP) 154/72 (89) 158/64 (91) 159/71 (87) 145/93 (100) Pulse Ox 95 94 95 95 O2 Delivery Nasal Cannula Nasal Cannula Nasal Cannula Nasal Cannula O2 Flow Rate 2.00 2.00 2.00 2.00 01/18/23 01/18/23 01/18/23 01/18/23 16:00 16:15 16:30 16:45 Pulse 70 69 69 74 Resp 22 24 23 26 B/P (MAP) 138/92 (103) 151/61 (88) 134/100 (108) 156/79 (103) Pulse Ox 92 95 93 O2 Delivery Nasal Cannula Nasal Cannula Nasal Cannula Nasal Cannula O2 Flow Rate 2.00 2.00 2.00 2.00 Capillary Refill : Less Than 3 Seconds General Appearance: no apparent distress Respiratory: rales Cardiovascular: regular rate, rhythm, no edema, no murmur Gastrointestinal: normal bowel sounds, non tender, soft Extremities: no pedal edema Neurologic/Psychiatric: alert, normal mood/affect, motor weakness (4/5 hip flexion on left, otherwise 5/5 upper and lower extremities), other (oriented to self and location and year, but not day/date. Can't hear finger rub bilaterally, otherwise nml [id number]) Skin: normal color, warm/dry Assessment/Plan Assessment/Plan Admission Status: Inpatient Order (span 2 midnights) Reason for Inpatient Admission: CHF (1) Elevated troponin Status: Acute Assessment & Plan: Suspect related to CHF, appreciate Cardiology recommendations. (2) Hyperkalemia Status: Acute Assessment & Plan: Hold lisinopril, anticipate decrease with diuresis. (3) Acute on chronic diastolic CHF (congestive heart failure) Status: Acute Assessment & Plan: Cardiology consulted, appreciate recommendations. IV diuresis started. (4) Bacteriuria Status: Acute Assessment & Plan: Possible UTI, culture pending. (5) Chronic systolic heart failure Status: Chronic (6) Primary hypertension Status: Chronic Assessment & Plan: Hold lisinopril due to hyperkalemia. (7) Chronic atrial fibrillation Status: Chronic Assessment & Plan: Resume home apixaban (8) Coronary artery disease without angina pectoris Status: Chronic (9) PVD (peripheral vascular disease) Status: Chronic (10) Sick sinus syndrome Status: Chronic Assessment & Plan: history of pacemaker placement (11) Chronic back pain Status: Chronic JOSE RAMON MESA MD Jan 18, 2023 15:13
[2023-01-18] MEDS: ENOXAPARIN 80 MG/0.8 ML (LOVENOX) SYR SQ SCH (16:31)
[2023-01-18] MEDS: FUROSEMIDE 40 MG/4 ML INJ (LASIX) IVP SCH (18:12)
[2023-01-19] VITALS (11 sets, daily range): BP systolic 64–166; BP diastolic 50–71
[2023-01-19] MEDS: ENOXAPARIN 80 MG/0.8 ML (LOVENOX) SYR SQ SCH ×2 (03:09→15:59)
[2023-01-19 05:42] LABS: HEMATOCRIT 34 % (35-52); HEMOGLOBIN 11.1 g/dL (11.5-16.0); MEAN CORPUSCULAR HEMOGLOBIN 27 pg (25-34); MEAN CORPUSCULAR HGB CONC 32 g/dL (32-36); MEAN CORPUSCULAR VOLUME 83 fL (80-99); MEAN PLATELET VOLUME 9.5 fL (9.0-12.2); PLATELET COUNT 193 10^3/uL (130-400); WHITE BLOOD COUNT 4.8 10^3/uL (4.3-11.0)
[2023-01-19 05:54] LABS: CALCIUM 8.9 MG/DL (8.5-10.1)
[2023-01-19 05:59] LABS: CREATININE SERUM 0.61 MG/DL (0.60-1.30)
[2023-01-19 06:01] LABS: MAGNESIUM 1.6 MG/DL (1.6-2.4)
[2023-01-19] MEDS: FUROSEMIDE 40 MG/4 ML INJ (LASIX) IVP SCH ×2 (06:58→16:00)
--- NOTE | 2023-01-19 08:25 | Progress Note ---
Subjective Subjective/Events-last exam Pt states she is feeling bad, her shoulder is bothering her, she can't reach things. She has a towel under her that is bothering her. She thinks the nurse was mad at her for taking out her oxygen but she had to blow her nose. She states right now she can't breathe because she needs to blow her nose. Focused Exam Lactate Level 01/18/23 10:20: Lactic Acid Level 1.96 Objective Exam Last Set of Vital Signs Vital Signs Date Time Temp Pulse Resp B/P (MAP) Pulse Ox O2 Delivery O2 Flow Rate FiO2 01/19/23 07:58 Nasal Cannula 4.00 01/19/23 07:51 36.9 67 18 166/70 (102) 94 Capillary Refill : Less Than 3 Seconds I&O Intake and Output 01/19/23 00:00 Intake Total 650 ml Output Total 900 ml Balance -250 ml Intake Oral 150 ml IV Total 500 ml Output Urine Total 900 ml Daily Weight Change No General: Alert Lungs: Other (rales) Heart: Regular Rate, No Murmurs Abdomen: Normal Bowel Sounds, Soft, No Tenderness Neuro: Normal Speech Psych/Mental Status: Other (irritable) Results/Procedures Lab Laboratory Tests 01/18/23 10:14: B-Type Natriuretic Peptide 1963.5H 01/18/23 10:16: White Blood Count 8.2, Red Blood Count 4.20, Hemoglobin 11.3L, Hematocrit 36, Mean Corpuscular Volume 86, Mean Corpuscular Hemoglobin 27, Mean Corpuscular Hemoglobin Concent 32, Red Cell Distribution Width 17.0H, Platelet Count 221, Mean Platelet Volume 10.4, Immature Granulocyte % (Auto) 0, Neutrophils (%) (Auto) 88H, Lymphocytes (%) (Auto) 8L, Monocytes (%) (Auto) 4, Eosinophils (%) (Auto) 0, Basophils (%) (Auto) 0, Neutrophils # (Auto) 7.2, Lymphocytes # (Auto) 0.7L, Monocytes # (Auto) 0.3, Eosinophils # (Auto) 0.0, Basophils # (Auto) 0.0, Immature Granulocyte # (Auto) 0.0, Neutrophils % (Manual) 81, Lymphocytes % (Manual) 12, Monocytes % (Manual) 3, Band Neutrophils 4, Blood Morphology Comment NORMAL, Sodium Level 135, Potassium Level 5.1H, Chloride Level 103, Carbon Dioxide Level 19L, Anion Gap 13, Blood Urea Nitrogen 13, Creatinine 0.72, Estimat Glomerular Filtration Rate 82, BUN/Creatinine Ratio 18, Glucose Level 216H, Calcium Level 9.3, Corrected Calcium 9.7, Total Bilirubin 1.0, Aspartate Amino Transf (AST/SGOT) 42H, Alanine Aminotransferase (ALT/SGPT) 18, Alkaline Phosphatase 93, Troponin I 0.133H, Total Protein 7.6, Albumin 3.5 01/18/23 10:20: Lactic Acid Level 1.96 01/18/23 11:10: Prothrombin Time 20.4H, INR Comment 1.7H, Activated Partial Thromboplast Time 35 01/18/23 12:00: Urine Color YELLOW, Urine Clarity CLEAR, Urine pH 5.5, Urine Specific [place] 1.025H, Urine Protein 1+H, Urine Glucose (UA) NEGATIVE, Urine Ketones NEGATIVE, Urine Nitrite NEGATIVE, Urine Bilirubin NEGATIVE, Urine Urobilinogen 4.0, Urine Leukocyte Esterase NEGATIVE, Urine RBC (Auto) 3+H, Urine RBC 5-10H, Urine WBC 2- 5, Urine Squamous Epithelial Cells 2-5, Urine Crystals NONE, Urine Bacteria LARGEH, Urine Casts PRESENT, Urine Hyaline Casts 2-5H, Urine Mucus NEGATIVE, Urine Culture Indicated CULTURE PENDING 01/19/23 05:27: White Blood Count 4.8, Red Blood Count 4.16, Hemoglobin 11.1L, Hematocrit 34L, Mean Corpuscular Volume 83, Mean Corpuscular Hemoglobin 27, Mean Corpuscular Hemoglobin Concent 32, Red Cell Distribution Width 16.6H, Platelet Count 193, Mean Platelet Volume 9.5, Sodium Level 139, Potassium Level 3.0L, Chloride Level 99, Carbon Dioxide Level 25, Anion Gap 15H, Blood Urea Nitrogen 13, Creatinine 0.61, Estimat Glomerular Filtration Rate 88, BUN/Creatinine Ratio 21, Glucose Level 93, Calcium Level 8.9, Magnesium Level 1.6, Troponin I 0.813*H Radiology CXR 01/18/23: IMPRESSION: 1: There is cardiomegaly and pulmonary vascular congestion which has progressed in the interim. 2: There is ill-defined appearance of the bilateral perihilar regions, which may be related to pulmonary congestion. Assessment/Plan Assessment/Plan (1) Elevated troponin Status: Acute Assessment & Plan: Suspect related to CHF, appreciate Cardiology recommendations. (2) Hyperkalemia Status: Resolved Assessment & Plan: Hold lisinopril, anticipate decrease with diuresis- did actually become hypokalemic today with diuresis yesterday. (3) Acute on chronic diastolic CHF (congestive heart failure) Status: Acute Assessment & Plan: Cardiology consulted, appreciate recommendations. IV diuresi s started. (4) Bacteriuria Status: Acute Assessment & Plan: Possible UTI- 01/19 culture showing > 100,000 CFU E coli, will start ceftriaxone. (5) Chronic systolic heart failure Status: Chronic (6) Primary hypertension Status: Chronic Assessment & Plan: Hold lisinopril due to hyperkalemia. (7) Chronic atrial fibrillation Status: Chronic Assessment & Plan: Resume home apixaban (8) Coronary artery disease without angina pectoris Status: Chronic (9) PVD (peripheral vascular disease) Status: Chronic (10) Sick sinus syndrome Status: Chronic Assessment & Plan: history of pacemaker placement (11) Chronic back pain Status: Chronic JOSE RAMON PETER MD Jan 19, 2023 08:25
[2023-01-19] MEDS ORDERED: KCL 20 MEQ TAB (K-DUR) PO NR (08:30)
--- NOTE | 2023-01-19 08:40 | Cardiology Progress Note ---
Subjective Date Seen by Provider: Jan 19, 2023 Time Seen by Provider: 08:36 Subjective/Events-last exam Patient was seen and. He was laying down in bed, complaining of back pain, shoulder pain, denied any chest pain, still having some dyspnea Review of Systems General: No Chills, No Night Sweats; Fatigue; No Malaise, No Appetite, No Other HEENT: No Head Aches, No Visual Changes, No Eye Pain, No Ear Pain; Dysphasia; No Sinus Congestion, No Post Nasal Drip, No Sore Throat, No Other Pulmonary: No Dyspnea, No Cough, No Pleuritic Chest Pain, No Other Cardiovascular: No: Chest Pain, Palpitations, Orthopnea, Paroxysmal Noc. Dyspnea, Edema, Lt Headedness, Other Focused Exam Lactate Level 01/18/23 10:20: Lactic Acid Level 1.96 Objective-Cardiology Exam Last Set of Vital Signs Vital Signs 01/19/23 01/19/23 07:51 07:58 Temp 36.9 Pulse 67 Resp 18 B/P (MAP) 166/70 (102) Pulse Ox 94 O2 Delivery Nasal Cannula O2 Flow Rate 4.00 I&O Intake and Output 01/19/23 00:00 Intake Total 650 ml Output Total 900 ml Balance -250 ml Intake Oral 150 ml IV Total 500 ml Output Urine Total 900 ml Daily Weight Change No General: Alert, Oriented X3, Cooperative HEENT: Atraumatic, PERRLA Neck: Supple, No JVD Lungs: Normal Air Movement, Other (Bilateral rhonchi, wet rales) Heart: Regular Rate, Normal S1, Normal S2, Other (Systolic murmur at the left sternal border) Abdomen: Normal Bowel Sounds, Soft, No Tenderness Extremities: No Clubbing, No Cyanosis Skin: No Rashes Neuro: Normal Speech Psych/Mental Status: Other (irritable) Results Lab Laboratory Tests 01/18/23 10:16 01/19/23 05:27 A/P-Cardiology Admission Diagnosis AE CHF CAD PAF HTN Assessment/Plan Congestive heart failure, acute on chronic biventricular systolic dysfunction, ischemic cardiomyopathy Ejection fraction. 40 to 45%, maintained on Coreg and lisinopril outpatient Started on Lasix 40 mg IV twice daily and responding well. Non-ST elevation myocardial infarction, T wave inversion with ST depression on EKG with left ventricular pattern present, type II [place] Probably a combination of hypoxemia, congestive heart failure and Coronary artery disease Currently asymptomatic, I recommend conservative management Coronary artery disease, History of multiple interventions. LHC done Jun 28, 2020 revealing total occlusion of the circumflex artery with successful balloon angioplasty and 50 percent residual stenosis, failed attempt to place stent d/t calcification. Severe stenosis in the stent in the LAD, underwent balloon angioplasty with mild to moderate residual stenosis, known to have Synergy 3.5x28 and 3.0x16mm, RCA has multiple stents Synergy 4.0 x38 and 3.5 x 38 that were patent with sm vessel dz distally. Patient had NSTEMI and underwent LHC on 10/29/20 with stenting to the circumflex artery using Abiola 2.5x15mm expanded to 2.6mm with excellent results conservative management is recommended Paroxysmal atrial fibrillation, maintained on Eliquis. Eliquis on hold due to elevated troponin, maintained on Lovenox. Continue to monitor [id number] score of 5, tolerating Eliquis 5 mg twice daily. Continue to monitor History of Medtronic dual chamber PPM in [address] Pierce at [facility]. Continue to monitor. Pacemaker checkup was done in September 2022 showing good sensing and capture activity. Continue to monitor Carotid artery stenosis, hx of right carotid stenting, last ultrasound was done in June 2022 showing bilateral nonobstructive disease Hx CVA unknown date Poor memory GERD/PUD Left hip fracture due to a nonsyncopal fall, underwent hip surgery in July 2021 Back pain, shoulder pain. Generalized weakness Consider PT/OT evaluation MACARIO CARO MD Jan 19, 2023 08:40
[2023-01-19] MEDS: ASPIRIN E.C. 81 MG (ECOTRIN) TAB PO SCH (08:43)
[2023-01-19] MEDS ORDERED: ATOR20TA66 PO (10:40)
[2023-01-19] MEDS ORDERED: POTA-177 PO (10:41)
[2023-01-19] MEDS ORDERED: CALC-938 PO (10:41)
[2023-01-19] MEDS ORDERED: POLY17PO6 PO (10:41)
[2023-01-19] MEDS ORDERED: MENT118G TP (10:41)
[2023-01-19] MEDS ORDERED: ONDA-105 PO (10:41)
[2023-01-19] MEDS ORDERED: APIX5TAB PO (10:41)
[2023-01-19] MEDS ORDERED: ACET325C7 PO (10:41)
[2023-01-19] MEDS ORDERED: ACHD5005 PO (10:41)
[2023-01-19] MEDS ORDERED: NITR0.4T42 SL (10:41)
[2023-01-19] MEDS ORDERED: cefTRIAXone IV/IM 1,000 MG in NS (IVPB) 50 ML IV SCH (13:00)
[2023-01-19] MEDS: DICLOFENAC 1% GEL 100 GM (VOLTAREN) TUBE TOP SCH ×2 (13:32→20:25)
[2023-01-19] MEDS ORDERED: ACETAMINOPHEN 325 MG TABLET PO PRN (20:15)
[2023-01-19] MEDS ORDERED: ACETAMINOPHEN ER 650 MG (TYLENOL ARTHRITIS) PO ONE ×2 (20:23→20:30)
[2023-01-20] VITALS: BP 93/59
[2023-01-20] MEDS: ENOXAPARIN 80 MG/0.8 ML (LOVENOX) SYR SQ SCH (03:39)
[2023-01-20 04:00] VITALS: BP 102/71
[2023-01-20 05:43] LABS: HEMATOCRIT 38 % (35-52); HEMOGLOBIN 12.2 g/dL (11.5-16.0); MEAN CORPUSCULAR HEMOGLOBIN 27 pg (25-34); MEAN CORPUSCULAR HGB CONC 32 g/dL (32-36); MEAN CORPUSCULAR VOLUME 83 fL (80-99); MEAN PLATELET VOLUME 10.2 fL (9.0-12.2); PLATELET COUNT 236 10^3/uL (130-400)
[2023-01-20 06:13] LABS: CALCIUM 9.3 MG/DL (8.5-10.1); CREATININE SERUM 1.24 MG/DL (0.60-1.30); MAGNESIUM 1.6 MG/DL (1.6-2.4); POTASSIUM 3.8 MMOL/L (3.6-5.0)
[2023-01-20] MEDS: FUROSEMIDE 40 MG/4 ML INJ (LASIX) IVP SCH (06:33)
[2023-01-20 08:00] VITALS: BP 89/62
[2023-01-20] MEDS: DICLOFENAC 1% GEL 100 GM (VOLTAREN) TUBE TOP SCH (08:13)
[2023-01-20] MEDS: ASPIRIN E.C. 81 MG (ECOTRIN) TAB PO SCH (08:13)
--- NOTE | 2023-01-20 09:19 | Cardiology Progress Note ---
Subjective Date Seen by Provider: Jan 20, 2023 Time Seen by Provider: 09:18 Subjective/Events-last exam Patient was seen at bedside, sitting comfortably, feeling better today. Review of Systems General: No Chills, No Night Sweats; Fatigue; No Malaise, No Appetite, No Other HEENT: No Head Aches, No Visual Changes, No Eye Pain, No Ear Pain, No Dysphasia, No Sinus Congestion, No Post Nasal Drip, No Sore Throat, No Other Pulmonary: No Dyspnea, No Cough, No Pleuritic Chest Pain, No Other Cardiovascular: No: Chest Pain, Palpitations, Orthopnea, Paroxysmal Noc. Dyspnea, Edema, Lt Headedness, Other Focused Exam Lactate Level 01/18/23 10:20: Lactic Acid Level 1.96 Objective-Cardiology Exam Last Set of Vital Signs Vital Signs 01/20/23 01/20/23 08:00 09:13 Temp 36.0 Pulse 96 Resp 16 B/P (MAP) 89/62 (71) Pulse Ox 97 O2 Delivery Nasal Cannula O2 Flow Rate 4.00 I&O Intake and Output 01/20/23 00:00 Intake Total 1150 ml Output Total 1575 ml Balance -425 ml Intake Oral 1100 ml IV Total 50 ml Output Urine Total 1575 ml # Bowel Movements 1 General: Alert, Oriented X3, Cooperative HEENT: Atraumatic, PERRLA Neck: Supple, No JVD Lungs: Normal Air Movement, Other (Bilateral rhonchi, wet rales) Heart: Regular Rate, Normal S1, Normal S2, Other (Systolic murmur at the left sternal border) Abdomen: Normal Bowel Sounds, Soft, No Tenderness Extremities: No Clubbing, No Cyanosis Skin: No Rashes Neuro: Normal Speech Psych/Mental Status: Other (irritable) Results Lab Laboratory Tests 01/20/23 04:54 A/P-Cardiology Admission Diagnosis AE CHF CAD PAF HTN Assessment/Plan Congestive heart failure, acute on chronic biventricular systolic dysfunction, ischemic cardiomyopathy Ejection fraction. 40 to 45%, maintained on Coreg and lisinopril outpatient I will change Lasix to oral and monitor Borderline hypotension secondary to aggressive diuresis. Decrease Lasix dose and monitor UTI, managed by primary care team Non-ST elevation myocardial infarction, T wave inversion with ST depression on EKG with left ventricular pattern present, type II [place] Probably a combination of hypoxemia, congestive heart failure and Coronary artery disease Currently asymptomatic, I recommend conservative management Coronary artery disease, History of multiple interventions. LHC done Jun 28, 2020 revealing total occlusion of the circumflex artery with successful balloon angioplasty and 50 percent residual stenosis, failed attempt to place stent d/t calcification. Severe stenosis in the stent in the LAD, underwent balloon angioplasty with mild to moderate residual stenosis, known to have Synergy 3.5x28 and 3.0x16mm, RCA has multiple stents Synergy 4.0 x38 and 3.5 x 38 that were patent with sm vessel dz distally. Patient had NSTEMI and underwent LHC on 10/29/20 with stenting to the circumflex artery using Abiola 2.5x15mm expanded to 2.6mm with excellent results conservative management is recommended Paroxysmal atrial fibrillation, maintained on Eliquis. Eliquis on hold due to elevated troponin, maintained on Lovenox. Continue to monitor [id number] score of 5, tolerating Eliquis 5 mg twice daily. Continue to monitor History of Medtronic dual chamber PPM in [address] Pierce at [facility]. Continue to monitor. Pacemaker checkup was done in September 2022 showing good sensing and capture activity. Continue to monitor Carotid artery stenosis, hx of right carotid stenting, last ultrasound was done in June 2022 showing bilateral nonobstructive disease Hx CVA unknown date Poor memory GERD/PUD Left hip fracture due to a nonsyncopal fall, underwent hip surgery in July 2021 Back pain, shoulder pain. Generalized weakness Consider PT/OT evaluation MACARIO CARO MD Jan 20, 2023 09:19
[2023-01-20 11:59] VITALS: BP 109/78
[2023-01-20] MEDS ORDERED: FURO20TA4 PO (12:21)
[2023-01-20] MEDS ORDERED: CEPH500C PO (12:21)
--- NOTE | 2023-01-20 12:39 | Physician Query Clarification ---
Physician Query-General Query to Physician: The medical record reflects the following clinical evidence: Clinical Indicators: RR 16 on admission then on day of admission increased to 28 and 33 has been consistently above 25, O2 on admission 3.5 L has been as high as 4 L, O2 sat in ER 85% on room air improved to 94% on 3.5 L lowest O2 sat after that was 91%, This was on 2 L (P/F=221), No C/O respiratory symptoms, Risk Factor(s): Acute CHF, No documentation of home 02 use, Treatment: Supplemental 02, Albuterol, Respiratory monitoring, IV Lasix Acute respiratory failure with hypoxia, present on admission Other explanation of clinical findings Unable to determine (no explanation for clinical findings) Please clarify and document your clinical opinion in the progress notes and discharge summary including the definitive and/or presumptive diagnosis, ( suspected or probable), related to the above clinical findings. Please include clinical findings supporting your diagnosis. Conchita Dalal, MSN, RN Clinical Environment Friendly Landscape Designer [phone] [email or web address] PHYSICIAN RESPONSE: Based on the clinical findings in the record, please respond to the query above on this document as an addendum. Physician Response: Physician Response Acute hypoxic respiratory failure present on admission If you have questions please contact: Head Banquet Waiter/Waitress: Ext: Thank you for your time and cooperation. Clinical Environment Friendly Landscape Designer/Head Banquet Waiter/Waitress This is a permanent part of the medical record CONCHITA DALAL Jan 20, 2023 12:39 JOSE RAMON PETER MD Jan 20, 2023 15:58
--- NOTE | 2023-01-20 12:39 | Physician Query Clarification ---
Physician Query-General Query to Physician: The medical record reflects the following clinical scenario: The patient, in the setting of History/Risk factors, History of "Biventricular Systolic dysfunction, ischemic cardiomyopathy" Clinical Findings BNP 1963, Echo this admission showing "Systolic function is moderately reduced...Ejection fraction is 40-45%. There were no regional wall motion abnormalities identified" no documentation of diastolic dysfunction. Treatment IV Lasix, Cardiology consult, repeat echo. Question: Do you agree with the impression of Acute on Chronic Systolic Heart Failure per Dr. Janie Martinez? Yes; will Acute on Chronic Systolic Heart Failure, present on admission in the Progress Notes No; will continue current documentation in the Progress Notes Other; will document explanation of clinical findings Clinically undetermined; no explanation for clinical findings Please clarify and document your clinical opinion in the Progress Notes and Discharge Summary including the definitive and/or presumptive diagnosis, (suspected or probable), related to the above clinical findings. Please include clinical findings supporting your diagnosis. In responding to this query, please exercise your independent professional judgment. The purpose of this communication is to more accurately reflect the complexity of your patients condition. The fact that a question is asked does not imply that any particular answer is desired or expected. Thank you for timely response to this clarification. Conchita Dalal, MSN, RN Clinical Supervising Editor Trailer [phone] [email or web address] PHYSICIAN RESPONSE: Based on the clinical findings in the record, please respond to the query above on this document as an addendum. Physician Response: Physician Response Yes, acute on chronic systolic congestive heart failure If you have questions please contact: Canteen Operator: Ext: Thank you for your time and cooperation. Clinical Supervising Editor Trailer/Canteen Operator This is a permanent part of the medical record CONCHITA DALAL Jan 20, 2023 12:39 JOSE RAMON PETER MD Jan 20, 2023 15:57
--- NOTE | 2023-01-20 12:40 | Physician Query Clarification ---
Physician Query-General Query to Physician: The medical record reflects the following clinical scenario: The patient, in the setting of History/Risk factors, Acute exacerbation of CHF, in the setting of ischemic cardiomyopathy, Clinical Findings Admission Labs: troponin I 0.133, then 0.813 BNP 1962, "dynamic T wave abnormality was noted new compared to the previous study", Treatment Cardiology consult, Started aspirin 81 mg daily and Lovenox 1 mg/kg. "I will hold Eliquis for now and monitor troponin level". Question: Do you agree with the impression of type II CT per Dr. Janie Martinez? Yes; will document Type II CT, present on admission in the Progress Notes No; will continue current documentation in the Progress Notes Other; will document explanation of clinical findings Clinically undetermined; no explanation for clinical findings Please clarify and document your clinical opinion in the Progress Notes and Discharge Summary including the definitive and/or presumptive diagnosis, (suspected or probable), related to the above clinical findings. Please include clinical findings supporting your diagnosis. In responding to this query, please exercise your independent professional judgment. The purpose of this communication is to more accurately reflect the complexity of your patients condition. The fact that a question is asked does not imply that any particular answer is desired or expected. Thank you for timely response to this clarification. Conchita Dalal, MSN, RN Clinical Grocery Store Clerk [phone] [email or web address] PHYSICIAN RESPONSE: Based on the clinical findings in the record, please respond to the query above on this document as an addendum. Physician Response: Physician Response Yes type II CT If you have questions please contact: Welder Apprentice: Ext: Thank you for your time and cooperation. Clinical Grocery Store Clerk/Welder Apprentice This is a permanent part of the medical record CONCHITA DALAL Jan 20, 2023 12:40 JOSE RAMON PETER MD Jan 20, 2023 15:59
--- NOTE | 2023-01-20 13:52 | Discharge Summary ---
Discharge Summary Hospital Course Problems/Diagnosis: (1) Elevated troponin Status: Acute Assessment & Plan: Suspect related to CHF, appreciate Cardiology recommenda tions. Medical management recommended. (2) Hyperkalemia Status: Resolved Resolution Date/Time: 01/19/23 @ 12:34 Assessment & Plan: Held lisinopril, decreased with diuresis (3) Acute on chronic diastolic CHF (congestive heart failure) Status: Acute Assessment & Plan: Cardiology consulted, appreciate recommendations. IV diuresis done with improvement. Requiring 2 lpm supplemental oxygen at d/c. (4) Bacteriuria Status: Acute Assessment & Plan: Possible UTI- 01/19 culture showing > 100,000 CFU E coli, started ceftriaxone, sensitivities noted no resistance, discharged with Keflex. (5) Chronic systolic heart failure Status: Chronic (6) Primary hypertension Status: Chronic Assessment & Plan: Lisinopril resumed on d/c after hypokalemia following diuresis. (7) Chronic atrial fibrillation Status: Chronic Assessment & Plan: Resume home apixaban (8) Coronary artery disease without angina pectoris Status: Chronic (9) PVD (peripheral vascular disease) Status: Chronic (10) Sick sinus syndrome Status: Chronic Assessment & Plan: history of pacemaker placement (11) Chronic back pain Status: Chronic Hospital Course Date of Admission: Jan 18, 2023 at 14:07 Admission Diagnosis : Family Physician/Provider: Greg Vargas MD Date of Discharge: 01/20/23 Discharge Diagnosis: See problem list Hospital Course: See problem list Labs and Pending Lab Test: Laboratory Tests 01/20/23 04:54: White Blood Count 5.0, Red Blood Count 4.60, Hemoglobin 12.2, Hematocrit 38, Mean Corpuscular Volume 83, Mean Corpuscular Hemoglobin 27, Mean Corpuscular Hemoglobin Concent 32, Red Cell Distribution Width 16.6H, Platelet Count 236, Mean Platelet Volume 10.2, Sodium Level 139, Potassium Level 3.8, Chloride Level 99, Carbon Dioxide Level 29, Anion Gap 11, Blood Urea Nitrogen 27H, Creatinine 1.24, Estimat Glomerular Filtration Rate 43, BUN/Creatinine Ratio 22, Glucose Level 122H, Calcium Level 9.3, Magnesium Level 1.6 Microbiology 01/18/23 Urine Culture - Preliminary, Resulted Escherichia coli Proteus mirabilis Mixed Bacterial Leisa See Comments 01/18/23 Blood Culture - Preliminary, Resulted No growth Home Meds Active Cephalexin 500 Mg Capsule 500 Mg PO BID Furosemide 20 Mg Tablet 20 Mg PO DAILY Reported Ondansetron HCl 4 Mg Tablet 4 Mg PO Q8H PRN Nitroglycerin 0.4 Mg Tab.subl 0.4 Mg SL UD PRN Hydrocodone-Acetamin 5-325 mg (Hydrocodone/Acetaminophen) 5 Mg-325 Mg Tablet 1 Ea PO Q4H PRN Biofreeze (Menthol) 4 % Gel..ml. 1 Applic TP Q6H PRN Tylenol (Acetaminophen) 325 Mg Capsule 650 Mg PO Q6H PRN TAKES 2 (325MG) CAPS Potassium Chloride 10 Meq Tab.er.prt 10 Meq PO 0600,1800 Miralax (Polyethylene Glycol 3350) 17 Gram Powd.pack 17 Gm PO 0600,1800 Eliquis (Apixaban) 5 Mg Tablet 5 Mg PO 0600,1800 Calcium Carbonate 300 Mg Calcium (750 Mg) Tab.chew 300 Mg PO DAILY Atorvastatin Calcium 20 Mg Tablet 20 Mg PO 1800 Lisinopril 10 Mg Tablet 10 Mg PO 1800 HOLD & NOTIFY NURSE/PCP IF BP <80/50 OR >180/110 AND PULSE <50 OR >110 Gabapentin 100 Mg Capsule 100 Mg PO 0600,1800 Sertraline HCl 50 Mg Tablet 50 Mg PO DAILY Calcium + Vitamin D Tablet (Calcium Carbonate/Vitamin D3) 1 Each Tablet 1 Each PO DAILY Vitamin B-12 (Cyanocobalamin (Vitamin B-12)) 500 Mcg Tablet 500 Mcg PO DAILY Carvedilol 12.5 Mg Tablet 12.5 Mg PO 0800,1700 HOLD & NOTIFY NURSE/PCP IF BP <80/50 OR >180/110 AND PULSE <50 OR >110 Vitamin D3 (Cholecalciferol (Vitamin D3)) 50 Mcg Capsule 50 Mcg PO DAILY Assessment/Pt DC Instructions Follow up with primary via the Nursing Facility. Discharge Diet: Cardiac Diet Activity as Tolerated: Yes Discharge Physical Examination Allergies: Coded Allergies: Penicillins (Unverified Allergy, Unknown, 11/17/19) General Appearance: No Apparent Distress Respiratory: Lungs Clear, Normal Breath Sounds Cardiovascular: Regular Rate, Rhythm, No Murmur Extremity: No Pedal Edema Skin: Normal Color, Warm/Dry Neurologic/Psychiatric: Alert, Normal Mood/Affect JOSE RAMON PETER MD Jan 20, 2023 13:52
== END 2023-01-20 14:38 | DRG 280 ==
LOC: EDUNIT# 10:10 → ER 10:11 → CSD 14:07
PROVIDERS: ADMIT Family Medicine; ATTEND Family Medicine
DX: I11.0 Hypertensive heart disease with heart failure (principal); I21.A1 Myocardial infarction type 2; I50.43 Acute on chronic combined systolic (congestive) and diastolic (congestive) heart failure; J96.01 Acute respiratory failure with hypoxia; I48.20 Chronic atrial fibrillation, unspecified; Z79.01 Long term (current) use of anticoagulants; J44.9 Chronic obstructive pulmonary disease, unspecified; Z95.0 Presence of cardiac pacemaker; Z95.5 Presence of coronary angioplasty implant and graft; E78.00 Pure hypercholesterolemia, unspecified; Z86.73 Personal history of transient ischemic attack (TIA), and cerebral infarction without residual deficits; M19.90 Unspecified osteoarthritis, unspecified site; F32.A Depression, unspecified; I25.10 Atherosclerotic heart disease of native coronary artery without angina pectoris; Z66 Do not resuscitate; Z96.642 Presence of left artificial hip joint; E87.5 Hyperkalemia; I73.9 Peripheral vascular disease, unspecified; I49.5 Sick sinus syndrome; G89.29 Other chronic pain; M54.9 Dorsalgia, unspecified; I48.0 Paroxysmal atrial fibrillation; I25.5 Ischemic cardiomyopathy; I65.21 Occlusion and stenosis of right carotid artery; K21.9 Gastro-esophageal reflux disease without esophagitis; K27.9 Peptic ulcer, site unspecified, unspecified as acute or chronic, without hemorrhage or perforation; M19.012 Primary osteoarthritis, left shoulder; M19.011 Primary osteoarthritis, right shoulder; M17.10 Unilateral primary osteoarthritis, unspecified knee
CPT/HCPCS: 36415; 71045; 80048; 80053; 81000; 83605; 83735; 83880; 84484; 85007; 85027; 85610; 85730; 87040; 87077; 87088; 87186; 93005; 93306; 94760; 94761